=== PATIENT | female | born 1935 | race Caucasian/White ===

== ENCOUNTER 2017-11-19 07:35 | Emergency (ER) | payer MEDICARE, SELFPAY ==
[2017-11-19 07:30] VITALS: BP 142/71; PULSE 71; RESP 18; TEMP 36.7; O2SAT 99; BMI 18.3
--- NOTE | 2017-11-19 07:51 | EKG12_ITS ---
Test Reason : NAUSEA Blood Pressure : / mmHG Vent. Rate : 069 BPM Atrial Rate : 069 BPM P-R Int : 158 ms QRS Dur : 070 ms QT Int : 422 ms P-R-T Axes : 017 057 066 degrees QTc Int : 452 ms Normal sinus rhythm Normal ECG Reconfirmed by ADAMARIS MENDOZA, EVER ([id number]), editor at large SANTIAGO CUTLER ([id number]) on 11/22/2017 1:51:34 PM Referred By: RADHA Confirmed By:EVER BAILON MD
--- NOTE | 2017-11-19 08:00 | ED.DCSUM_ITS ---
- ER Visit Summary Date of Service: 11/19/17 Chief Complaint: Nausea and vomiting History of Present Illness: The patient is a 82 F who states she woke this morning with nausea. She has not vomited. She denies diarrhea. Patient states she felt well when she went to bed last evening. She feels slightly lightheaded, but denies pain. Past history significant for dementia, reflux disease, vertigo, cerebellar ataxia, hypertension, high cholesterol, and atrial fibrillation. Physical Examination: Vital signs are unremarkable. Patient's lying in bed no acute distress. Head neck examination is normal. Heart is regular rate and rhythm. Lung sounds are clear. Abdomen is soft with active bowel sounds throughout. She has no tenderness on palpation. Lower extremity examination will strong distal pulses with no significant edema. Test Results: EKG is sinus at 69 with no sign of acute ischemia. CBC is significant only for hemoglobin 11.7. Chemistry studies are normal. Urinalysis is normal. Emergency Department Course and Treatment: Was given Zofran and IV fluids. On repeat evaluation she does feel improved. She has been able to get up to the bedside commode without difficulty. At this time she will be discharged home with Zofran. Treatment Plan: [] Disposition: Discharge Impression: Nausea, improved This note was generated with [employer] dictation software. It may contain incorrect words, spelling, and punctuation that were not noted in review of the chart prior to signing ED Disposition - Plan for ED Patient: Chief Complaint: Nausea/Vomiting Referrals: Giuliana Wright MD [Primary Care Provider] -
[2017-11-19] MEDS: 0.9% Normal Saline 1,000 ML 75 ML IV (08:01)
[2017-11-19] MEDS: Ondansetron 4 MG/2 ML Vial IV (08:01)
[2017-11-19 08:09] LABS: Absolute Lymphocyte Count 0.86 X10^3/ul (0.83-4.51); Absolute Neutrophil Count 3.9 X10^3/uL (2.0-7.7); Basophil# 0.02 X10^3/uL; Basophil% 0.4 % (0-1); Eosinophil# 0.08 X10^3/uL; Eosinophils% 1.5 % (0-5); Hematocrit 36.4 % (37-47); Hemoglobin 11.7 g/dl (12.0-15.0); Lymphocyte # 0.86 X10^3/ul (4.0); Lymphocyte % 16.2 % (19-41); Mean Corp Hgb Conc 32.1 g/gl (32-36); Mean Corpuscular Hgb 31.4 pg (27.0-32.0); Mean Corpuscular Volume 97.6 fL (81-99); Mean Platelet Vol. 10.6 fl (6.2-12.0); Monocyte# 0.44 X10^3/uL; Monocyte% 8.3 % (0-10); Neutrophil # 3.91 X10^3/uL (2.7-7.7); Neutrophil % 73.6 % (47-70); POSITIVE COUNT NO; POSITIVE DIFFERENTIAL NO; POSITIVE MORPHOLOGY NO; Platelet Count 200 K/mm3 (150-450); RBC Distribution Width CV 12.2 % (11.6-14.6); RBC Distribution Width SD 42.1 fl (35.1-43.9); Red Blood Count 3.73 M/mm3 (4.2-5.4); White Blood Count 5.3 K/mm3 (4.4-11.0)
[2017-11-19 08:23] LABS: Anion Gap 7 (5-15); BUN 16 mg/dL (7-18); BUN/Creat Ratio 24.7 RATIO (10-20); Calcium,Total 8.4 mg/dL (8.5-10.1); Chloride 103 mmol/L (98-107); Creatinine, Serum 0.65 mg/dL (0.55-1.02); EST Glomerular Filtration Rate 93 mL/min (>60); Est Glom Filt Rate - Afr Amer 113 mL/min (>60); Estimated Creatinine Clearance 29.68 ml/min; Glucose 89 mg/dL (74-106); Potassium 3.8 mmol/L (3.5-5.1); Sodium Level 140 mmol/L (136-145)
[2017-11-19 09:33] LABS: Mucous, Urine 0 SEEN /hpf (<or=2+); Red Blood Cells-Urine 0 SEEN /hpf (0-5)
[2017-11-19 09:39] LABS: Color, Urine Yellow (Yellow); Glucose, Dipstick Normal (Normal); Ketone-Dipstick Negative (Negative); Leukocyte Esterase-Dipstick 25 /ul (Negative); Nitrite-Dipstick Negative (Negative); Occult Blood-Urine Negative /ul (Negative); Protein-Dipstick Negative (Negative); Urine Bilirubin Dipstick Negative (Negative); Urine Clarity Sl. Cloudy (Clear); Urine Urobilinogen Normal (Normal)
[2017-11-19 10:04] LABS: Bacteria 1+ /hpf (None Seen); Squamous Epithelial Cells - UA 0-5 SEEN /hpf (5-10); White Blood Cells 0-5 SEEN /hpf (0-5)
[2017-11-19 10:06] VITALS: BP 135/61; PULSE 64; RESP 12; O2SAT 96
--- NOTE | 2017-11-19 10:49 | ED.DEP ---
ED Disposition - Plan for ED Patient: Disposition: Home or Assisted Living Chief Complaint: Nausea/Vomiting Instructions: ED Nausea Vomiting Prescriptions: Ondansetron [Zofran Odt] 4 mg PO Q8H PRN PRN #10 tablet PRN Reason: Nausea Referrals: Giuliana Wright MD [Primary Care Provider] - 3-5 Days if not improving
[2017-11-19 10:57] VITALS: BP 138/62; PULSE 68; RESP 18
== END 2017-11-19 11:04 | disposition home or self-care (01) ==
PROVIDERS: Emergency Provider Emergency Medicine; Family Provider Internal Medicine; PCP Internal Medicine
DX: R11.0 Nausea (principal); F03.90 Unspecified dementia, unspecified severity, without behavioral disturbance, psychotic disturbance, mood disturbance, and anxiety; K21.9 Gastro-esophageal reflux disease without esophagitis; I10 Essential (primary) hypertension; E78.00 Pure hypercholesterolemia, unspecified; G11.9 Hereditary ataxia, unspecified; Z79.82 Long term (current) use of aspirin; Z79.899 Other long term (current) drug therapy
CPT/HCPCS: 80048; 81001; 85025; 93005; 96361; 96374; 99285; J7030; J2405

== ENCOUNTER 2018-02-19 16:10 | Inpatient (IN) | payer MEDICARE, SELFPAY ==
[2018-02-19 16:12] VITALS: BP 137/75; PULSE 73; RESP 16; TEMP 36.8; O2SAT 97; BMI 19.8
--- NOTE | 2018-02-19 16:20 | CT_ITS ---
STUDY: CT BRAIN WITHOUT CONTRAST REASON FOR EXAM: Female, 82 years old. Fall with head injury RADIATION DOSAGE (If Supplied By Facility): CTDIvol = ( 44.99 ) mGy, DLP = ( 745.49 ) mGycm TECHNIQUE: Transaxial CT imaging of the brain was performed without administration of intravenous contrast material. Individualized dose optimization techniques were used for this CT. COMPARISON: None. FINDINGS: Normal soft tissue structures. Normal calvarium. There is mild cerebral atrophy with widening of the extra-axial spaces and ventricular dilatation. There are areas of decreased attenuation within the white matter tracts of the supratentorial brain, consistent with microvascular disease changes. Normal basal ganglia and thalami. Normal brainstem. There is mild cerebellar atrophy. There is no intracranial hemorrhage. There are no findings of an acute ischemic infarction. Normal visualized paranasal sinuses. CT/Brain/Head without Contrast IMPRESSION: Chronic involutional changes of the brain. Electronically Signed: Max Rodriguez DO at 17:16 EDT Tel , Service support ,
--- NOTE | 2018-02-19 16:20 | RAD_ITS ---
STUDY: X-RAY - PELVIS AND RIGHT HIP REASON FOR EXAM: Female, 82 years old. Right hip pain after fall TECHNIQUE: Radiological exam, hip, unilateral, with pelvis when performed; 2 or 3 views. COMPARISON: None. FINDINGS: Complete right femoral neck transection is noted. Left-sided hip degenerative changes RAD/Hip 2-3 Views with Pelvis IMPRESSION: Right femoral neck transection Electronically Signed: Max Rodriguez DO at 17:47 EDT Tel , Service support ,
--- NOTE | 2018-02-19 16:21 | EKG12_ITS ---
Test Reason : PRE OP Blood Pressure : / mmHG Vent. Rate : 070 BPM Atrial Rate : 070 BPM P-R Int : 132 ms QRS Dur : 076 ms QT Int : 406 ms P-R-T Axes : 103 067 054 degrees QTc Int : 438 ms Normal sinus rhythm Normal ECG Confirmed by ADAMARIS MENDOZA, EVER ([id number]), industrial editor SANTIAGO CUTLER ([id number]) on 02/21/2018 1:53:35 PM Referred By: INA Confirmed By:EVER BAILON MD
--- NOTE | 2018-02-19 16:25 | ED.DCSUM_ITS ---
- ER Visit Summary Date of Service: 02/19/18 Chief Complaint: Fall History of Present Illness: The patient is a 82 F who fell today. Her knee gave out and she fell to the ground from standing. She complains of pain to her right hip. She denies head or neck pain, but she is not sure if she lost consciousness. She denies blood thinners. Denies weakness or numbness. Denies any other injuries or complaints Physical Examination: Head and neck atraumatic. Neck nontender. Heart regular rate and rhythm. Lungs clear. Abdomen soft. Right hip tender to palpation. Right leg shortened and rotated. Positive logroll. Neurovascular intact distally. Test Results: CT, chest x-ray, right hip x-ray, labs pending. Emergency Department Course and Treatment: Patient likely has right hip fracture. Treated with morphine and Zofran while awaiting results. Patient has a right-sided femoral neck fracture. CT head and chest x-ray just showed chronic changes. Labs fairly unremarkable. Patient remained stable. Did not require additional medicine for pain. I spoke with Dr. Crowder who will follow. Dr. Reed will admit. Treatment Plan: As above Disposition: Admission Impression: 1. Right femoral neck fracture This note was generated with [employer] dictation software. It may contain incorrect words, spelling, and punctuation that were not noted in review of the chart prior to signing ED Disposition - Plan for ED Patient: Chief Complaint: Lower Extremity Injury
[2018-02-19] MEDS: Morphine 4 MG/ML Syringe IV (16:35)
[2018-02-19] MEDS: Ondansetron 4 MG/2 ML Vial IV (16:35)
[2018-02-19] MEDS: 0.9% Normal Saline 1,000 ML 150 ML IV (17:13)
[2018-02-19 17:17] LABS: Absolute Lymphocyte Count 1.11 X10^3/ul (0.83-4.51); Absolute Neutrophil Count 4.2 X10^3/uL (2.0-7.7); Basophil# 0.02 X10^3/uL; Basophil% 0.3 % (0-1); Eosinophil# 0.05 X10^3/uL; Eosinophils% 0.8 % (0-5); Hematocrit 32.4 % (37-47); Hemoglobin 10.6 g/dl (12.0-15.0); Lymphocyte # 1.11 X10^3/ul (4.0); Lymphocyte % 18.8 % (19-41); Mean Corp Hgb Conc 32.7 g/gl (32-36); Mean Corpuscular Hgb 31.6 pg (27.0-32.0); Mean Corpuscular Volume 96.7 fL (81-99); Monocyte# 0.54 X10^3/uL; Monocyte% 9.2 % (0-10); Neutrophil # 4.16 X10^3/uL (2.7-7.7); Neutrophil % 70.6 % (47-70); Platelet Count 195 K/mm3 (150-450); RBC Distribution Width CV 12.5 % (11.6-14.6); Red Blood Count 3.35 M/mm3 (4.2-5.4); White Blood Count 5.9 K/mm3 (4.4-11.0)
--- NOTE | 2018-02-19 17:20 | RAD_ITS ---
STUDY: X-RAY CHEST REASON FOR EXAM: Female, 82 years old. Trauma TECHNIQUE: Single AP portable view of the chest. COMPARISON: None. FINDINGS: The lungs are clear and expanded. There is no demonstrated pleural abnormality. Normal size heart. Calcified bihilar lymph nodes. Normal visualized pulmonary arteries. Normal visualized aortic arch and descending thoracic aorta. There are diffuse degenerative changes of the visualized thoracic spine. There is degenerative osteoarthritis of the bilateral shoulders. There is no demonstrated abnormality of the visualized soft tissue structures of the upper abdomen. RAD/Chest 1 View (Portable) IMPRESSION: Calcified bihilar lymph nodes. No acute findings Electronically Signed: Max Rodriguez DO at 17:46 EDT Tel , Service support ,
[2018-02-19 17:35] LABS: POSITIVE COUNT NO; POSITIVE DIFFERENTIAL NO; POSITIVE MORPHOLOGY NO
[2018-02-19 17:38] LABS: Anion Gap 8 (5-15); BUN 18 mg/dL (7-18); BUN/Creat Ratio 26.8 RATIO (10-20); Calcium,Total 8.3 mg/dL (8.5-10.1); Chloride 102 mmol/L (98-107); Creatinine, Serum 0.67 mg/dL (0.55-1.02); EST Glomerular Filtration Rate 89 mL/min (>60); Est Glom Filt Rate - Afr Amer 108 mL/min (>60); Estimated Creatinine Clearance 30.62 ml/min; Glucose 104 mg/dL (74-106); Potassium 3.8 mmol/L (3.5-5.1); Sodium Level 140 mmol/L (136-145)
[2018-02-19 17:47] LABS: International Normalized Ratio 1.1; Prothrombin Time (Protime)PT. 14.3 SECONDS (11.7-14.9)
[2018-02-19 17:48] LABS: Partial Thromboplast Time 28.9 Seconds (24.1-36.2)
--- NOTE | 2018-02-19 18:02 | NURSING ---
HOSPITALIST PAGED DR WILLIS PAGED
[2018-02-19 18:33] VITALS: BP 127/71; PULSE 66; RESP 16; O2SAT 93
[2018-02-19 18:38] VITALS: BMI 19.8
--- NOTE | 2018-02-19 19:10 | PCM.HP.STD ---
Problem List (1) Closed right hip fracture Status: Acute (2) Osteoporosis Status: Chronic (3) Hypertension Status: Chronic (4) Dyslipidemia Status: Chronic History of Present Illness Date of Admission: 02/19/18 Chief Complaint: Fall and right hip fracture The patient is a 82 year old F with no significant past medical history other than hypertension, dyslipidemia and osteoporosis on Fosamax came to ER when she fell down after she felt dizzy in her right knee gave out when she was pushing a wheelchair. 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 She denies abnormal chest sensation including arrhythmia, chest pain or shortness of breath. She denies chronic lung disease or heart disease, stroke or peripheral arterial disease or previous dislocation or fracture. In ED, right hip pelvis x-ray shows a right femoral neck fracture. Her initial basic lab work in ER shows hemoglobin 10.6 otherwise unremarkable. EKG shows normal sinus rhythm at 70 bpm. Past Medical History Past Medical History (Chronic Problems): Chronic Problems Osteoporosis (Chronic) Hypertension (Chronic) Dyslipidemia (Chronic) Allergies No Known Allergies Allergy (Verified 02/19/18 16:10) Home Medications: Ambulatory Orders Medication Instructions Recorded Alendronate Sodium [Fosamax] 70 mg PO TU 02/19/18 Aspirin [Aspirin, Baby] 81 mg PO DAILY@0800 02/19/18 Atorvastatin Calcium [Lipitor] 20 mg PO QHS 02/19/18 Ergocalciferol [Vitamin D] 50,000 unit PO MOFR 02/19/18 Ranitidine [Zantac] 150 mg PO BID 02/19/18 Valsartan [Diovan] 40 mg PO DAILY 02/19/18 Smoking Status: Never smoker Tobacco Use: Non-smoker Review of Systems Constitutional: Denies: Chills, Fever, Weight Change HEENT: Denies: Head Aches, Sinus Congestion, Sinus Drainage Cardiovascular: Reports: Light Headedness. Denies: Chest Pain, Palpitations Respiratory: Denies: Cough, Shortness of breath at rest, Sputum production Gastrointestinal: Denies: Abdominal Pain, Nausea, Vomiting Genitourinary: Denies: Dysuria Musculoskeletal: Reports: Joint Pain, Joint Tenderness, Muscle pain Skin: Denies: Rash, Wounds Neurological: Reports: Balance problems. Denies: Focal weakness, Numbness, Tingling Psychiatric: Denies: Anxiety, Depression, Homicidal Ideations, Suicidal Ideations Hematologic/ Lymphatic: Denies: Easy Bruising, Easy Bleeding VTE Information - Inpt Only VTE Present on Admission: No VTE Mechan Device Prophylaxis: SCD's VTE Pharm Prophylaxis ordered?: Yes Patient Problems: Active and Suspected Problems Closed right hip fracture (Acute) - Physical Exam General: Alert, Oriented x3, Cooperative HEENT: Atraumatic, PERRLA, EOMI, Normocephalic, - - Edentulous Oral: Dry Mucosa Neck: Supple, No JVD, Negative Carotid Bruits Lungs: Clear to auscultation, Normal air movement, No rhonchi, No wheeze Cardiovascular: Regular rate, Regular Rhythm, Normal S1, Normal S2, No murmurs Abdomen: Bowel Sounds Present, Soft, Non Tender, Non-Distended, - - Urinary bladder is distended. Extremities: No edema, Capillary Refill Less than 3 Seconds Skin: No rashes, No breakdown Musculoskeletal: Arthritic Changes, Tenderness - Tenderness present over right hip joint and right knee. Right lower extremity is short and externally rotated. Neurological: Cranial nerves II-XII grossly intact Psych/Mental Status: Normal Affect, Appropriate Vital Signs Temp Pulse Resp BP Pulse Ox 98.2 F 66 16 127/71 H 93 02/19/18 16:12 02/19/18 18:33 02/19/18 18:33 02/19/18 18:33 02/19/18 18:33 Assessment/Plan All Active Problems Closed right hip fracture (Acute) The patient is a 82 year old F with no significant past medical history other than hypertension, dyslipidemia and osteoporosis on Fosamax came to ER when she fell down after she felt dizzy in her right knee gave out when she was pushing a wheelchair. 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 She denies abnormal chest sensation including arrhythmia, chest pain or shortness of breath. She denies chronic lung disease or heart disease, stroke or peripheral arterial disease or previous dislocation or fracture. In ED, right hip pelvis x-ray shows a right femoral neck fracture. Her initial basic lab work in ER shows hemoglobin 10.6 otherwise unremarkable. EKG shows normal sinus rhythm at 70 bpm. 1. Right closed, pathological, mechanical hip fracture: The patient is being admitted on regular [facility] floor. ED physician consulted Dr. Crowder for right hip surgery. As per Yo perioperative cardiac risk is 0.22% that is low to moderate risk. Patient has preoperative good functional capacity and she was independent. PT and OT ordered. IV fluid normal saline. 2. Hypertension, and dyslipidemia, Blood pressure is controlled 127/71. Glucose is 104 milligrams percent. 3. Bony disorder: Osteoporosis and bilateral diffuse degenerative joint disease: Home medication reconciliation done. Continue vitamin D, Fosamax. DVT prophylaxis on heparin 5000 units twice daily and bilateral SCDs. Hold heparin 6 hours prior to surgery. Laboratory Results 02/19/18 16:35: WBC 5.9, RBC 3.35 L, Hgb 10.6 L, Hct 32.4 L, MCV 96.7, MCH 31.6, MCHC 32.7, RDW 12.5, RDW Differential 43.0, Plt Count 195, MPV 11.0, Immature Gran % (Auto) 0.300, Neut % (Auto) 70.6 H, Lymph % (Auto) 18.8 L, [place] % (Auto) 9.2, Eos % (Auto) 0.8, Baso % (Auto) 0.3, Absolute Neuts (auto) 4.2, Absolute Lymphs (auto) 1.11, Total Counted Not Reportable 02/19/18 16:35: PT 14.3, INR 1.1, APTT 28.9 02/19/18 16:35: Sodium 140, Potassium 3.8, Chloride 102, Carbon Dioxide 30.0, Anion Gap 8, BUN 18, Creatinine 0.67, Estim Creat Clear Calc 30.62, Est GFR (MDRD) Af Amer 108, Est GFR (MDRD) Non-Af 89, BUN/Creatinine Ratio 26.8 H, Glucose 104, Calcium 8.3 L Clinical Impression(s) from Imaging Studies Brain CT 02/19/18 16:20 IMPRESSION: Chronic involutional changes of the brain. Hip/Pelvis X-Ray 02/19/18 16:20 IMPRESSION: Right femoral neck transection Chest X-Ray 02/19/18 17:20 IMPRESSION: Calcified bihilar lymph nodes. No acute findings Code Visit Inpatient E&M: 38045 Init Hosp L2
[2018-02-19 19:34] VITALS: BMI 19.8
[2018-02-19 19:35] VITALS: BP 143/67; PULSE 64; RESP 18; TEMP 36.7; O2SAT 95
--- NOTE | 2018-02-19 19:43 | ECHOD_ITS ---
Reason For Study: near syncope Procedure This was a 2D Doppler, Color Flow transthoracic echocardiogram. The study was technically difficult. PT scanned in supine position due to RT hip Fx. Exam performed portable in patient room. Left Ventricle Normal LV size. Left ventricular systolic function is normal. The estimated ejection fraction is 60 %. Transmitral diastolic flow velocities suggest mild (stage 1) diastolic dysfunction (reversed pattern). No regional wall motion abnormalities noted. Right Ventricle Normal RV size. Normal systolic function. Atria Normal left atrium. Normal right atrium. Mitral Valve Normal mitral valve. Tricuspid Valve Normal tricuspid valve. Mild (1+) tricuspid valve insufficiency. Pulmonary artery systolic pressure is 34 mmHg. Aortic Valve Trisinus/trileaflet aortic valve. Pulmonic Valve Normal pulmonic valve. Great Vessels Normal aortic root. The pulmonary artery is normal size. Inferior vena cava collapse with sniff. Pericardium/Pleural No pericardial effusion. MMode/2D Measurements & Calculations LVIDd: 3.5 cm IVSd: 0.86 cm Ao root diam: 2.6 cm LVIDs: 2.5 cm LVPWd: 0.88 cm RVDd: 2.5 cm FS: 29.1 % LAV(MOD-bp): 44.5 ml LA A4 area: 14.9 cm2 RA A4 area: 11.3 cm2 LAV(MOD-bp) Indexed: 31.9 ml/m2 LAV(MOD-sp2): 47.0 ml LAV(MOD-sp4): 39.0 ml Doppler Measurements & Calculations MV E max mac: 86.1 cm/sec Lat Peak E' Mac: 8.4 cm/sec Med Peak E' Mac: 10.2 cm/sec MV A max mac: 90.3 cm/sec E/E' lat: 10.2 E/E' med: 8.4 MV E/A: 0.95 Ao V2 max: 149.9 cm/sec LV V1 max: 85.0 cm/sec PA V2 max: 77.0 cm/sec Ao max P.0 mmHg LV V1 max P.9 mmHg PI end-d mac: 109.3 cm/sec TR max mac: 277.9 cm/sec TR max P.1 mmHg Interpretation Summary Normal LV size. Left ventricular systolic function is normal. The estimated ejection fraction is 60 %. Transmitral diastolic flow velocities suggest mild (stage 1) diastolic dysfunction (reversed pattern). Ordering Physician: Wilfred Reed Referring Physician: MIKAELA PCP Performed By: Nikia Sutton RDCS, RVT
--- NOTE | 2018-02-19 19:57 | PCM.CONS.B ---
- Consult Date of Consult: 02/19/18 - Reason for Consult 82-year-old female with a fall from standing height after a dizziness episode resulting in a right closed displaced cervical neck fracture. Patient was seen on the floor after admission by the hospitalist team. Dr. Reed, [facility] hospitalist, felt that at this point time the patient was looking to be cleared for surgical intervention tomorrow as the patient does not have any significant underlying comorbidities is relatively low risk. The daughter does report that her mother was to have had an appointment with [place] [facility] is routine follow-up as she has had some degree of a syncopal episode in the past but with a negative workup. Patient at this point time only reports having some mild right knee pain where no x-rays were performed at this point. She otherwise states her only real complaint is to her right hip. Patient is otherwise resting comfortably in her room again accompanied by her daughter. Denies any other significant fevers chills nausea vomiting chest pain or shortness of breath. Points to her right hip. Patient also points to the right knee. Objective: Patient is otherwise alert and oriented ?3 in no acute distress. Patient is appropriate eye contact and affect. She remains intact from L1-S1 distributions bilaterally. Patient has +2 pulses. Patient has no long bone pain with palpation to the left lower extremity. She has no signs of knee effusion or ecchymosis allow me to gently internally X rotate the hip without difficulty. The right lower extremity is obviously shortened versus the contralateral side. Patient has no pain with palpation across the tibia or the ankle or foot. Her peroneal motor function is 5 out of 5. Patient shows no signs of any effusion currently but does have some pain with with gentle movement of the knee but that may be referred pain from the hip. She does appear to be ligamentously stable with 1A [place]. And she allowed me to examine her at 0 and 30? of varus valgus stress with no abnormalities. Patient shows very mild ecchymosis to the right hip. Otherwise mildly tender palpation to the trochanter as expected. Again the EHL anterior gastrocsoleus peroneals 5 out of 5 to the right lower extremity. Lab values reviewed. H&H is stable at this time. X-rays:-Patient shows a displaced mid cervical femoral neck fracture. No significant acetabular osteoarthritis can be appreciated to the right hip. Assessment: Right closed displaced midcervical femoral neck fracture initial encounter, dizziness, right hip pain, mild anemia. Plan: At this point time an extensive discussion with the patient and the daughter about the planned surgical intervention for tomorrow. I did tell the patient he can make a nonoperative treatment with the patient be nonweightbearing and would have significant pain and discomfort. At this point time the patient and family would like to proceed. Patient understands risks and benefits to include damage to nerves muscles arteries and veins, development of DVT PE infection or . Patient is at risk for dislocation and periprosthetic fracture. Patient was also warned about adverse reaction to canal reaming and the use of cement. Patient would like to proceed at this point time again with a right cemented hemiarthroplasty or any indicated procedure. Anticipate surgery tomorrow hopefully around 930 or 10 perhaps even 1030. I am to follow 1 of the other providers at this time. I will make the patient n.p.o. for surgery. Hold WAKU WAKU ?. I have asked for Ancef to the chart and also TXA to the chart to be given prior to incision to decrease the risks of postoperative blood loss. The patient is aware of the possible need for transfusion if needed. Based on the patient's age patient would be a good candidate for snf facility for rehab as well. There is any major issues please contact me.
--- NOTE | 2018-02-19 20:05 | RAD_ITS ---
STUDY: X-RAY - RIGHT KNEE REASON FOR EXAM: Female, 82 years old. Right knee pain after fall TECHNIQUE: 2 view(s) of the knee. COMPARISON: None. FINDINGS: Normal visualized distal femur. Normal visualized proximal tibia and fibula. Normal proximal tibiofibular articulation. There is mild degenerative arthrosis of the medial femorotibial compartment. There is mild degenerative arthrosis of the lateral femorotibial compartment. Normal patellofemoral articulation. The soft tissue structures are unremarkable. RAD/Knee 1 or 2 Views IMPRESSION: Degenerative arthrosis. Electronically Signed: Max Rodriguez DO at 20:22 EDT Tel , Service support ,
[2018-02-19] MEDS: Morphine 2 MG/ML Syringe IV (21:15)
[2018-02-19] MEDS: Atorvastatin Calcium 20 MG Tablet PO (23:06)
[2018-02-20 01:59] VITALS: BP 107/58; PULSE 62; RESP 18; TEMP 36.4; O2SAT 94
[2018-02-20 02:04] VITALS: BP 107/58; BP 110/51; PULSE 62; PULSE 63
[2018-02-20] MEDS: Morphine 2 MG/ML Syringe IV ×4 (02:10→15:27)
[2018-02-20 06:20] LABS: Absolute Neutrophil Count 5.7 X10^3/uL (2.0-7.7); Basophil# 0.02 X10^3/uL; Basophil% 0.3 % (0-1); Eosinophil# 0.09 X10^3/uL; Eosinophils% 1.2 % (0-5); Hematocrit 32.3 % (37-47); Hemoglobin 10.9 g/dl (12.0-15.0); Lymphocyte % 12.3 % (19-41); Mean Corp Hgb Conc 33.7 g/gl (32-36); Mean Corpuscular Hgb 31.4 pg (27.0-32.0); Mean Corpuscular Volume 93.1 fL (81-99); Mean Platelet Vol. 10.8 fl (6.2-12.0); Monocyte# 0.62 X10^3/uL; Monocyte% 8.4 % (0-10); Neutrophil % 77.7 % (47-70); Platelet Count 171 K/mm3 (150-450); RBC Distribution Width CV 12.8 % (11.6-14.6); RBC Distribution Width SD 43.1 fl (35.1-43.9); Red Blood Count 3.47 M/mm3 (4.2-5.4); White Blood Count 7.3 K/mm3 (4.4-11.0)
[2018-02-20 06:26] LABS: POSITIVE COUNT NO; POSITIVE DIFFERENTIAL NO; POSITIVE MORPHOLOGY NO
[2018-02-20] MEDS: 0.9% Normal Saline 1,000 ML 75 ML IV ×2 (07:43→22:09)
[2018-02-20] MEDS: Aspirin 81 MG TAB.CHEW PO (07:44)
[2018-02-20] MEDS: Famotidine 20 MG Tablet PO (07:44)
[2018-02-20] MEDS: VALSARTAN 40 MG TABLET PO (07:44)
[2018-02-20] MEDS: Polyethylene Glycol 3350 17 GM PACKET PO (07:50)
[2018-02-20] MEDS: Heparin Injection (Vial) 5,000 UNIT/ML VIAL 5000 UNIT SC (07:50)
[2018-02-20 08:15] VITALS: BP 108/46; PULSE 65; RESP 16; TEMP 36.7; O2SAT 95
--- NOTE | 2018-02-20 10:39 | CASEMGMT ---
Social Work Note SAMIR received a message from Rebecca in inpatient rehab stating that pt would be a good candidate for inpatient rehab if pt is agreeable. SW in to talk with pt to confirm discharge plans. SW introduced self and role at [facility]. Pt is alert and orientated x4. Pt's daughter Heena present in room. Pt gave this worker permission to speak to her in front of her daughter. SAMIR educated pt and pt's daughter that typically after a hip fracture the recommendation is SNF or Inpatient Rehab at discharge to get rehabilitation before returning home. SAMIR educated pt and pt's daughter on inpatient rehab unit at [facility]. Pt and pt's daughter is agreeable to inpatient rehab unit at discharge. SAMIR explained referral process and pre-cert authorization. Pt and pt's daughter states understanding. Pt's daughter states that pt's surgery is scheduled for tomorrow. SAMIR placed a call to Rebecca with inpatient rehab and informed her of referral. SW informed pt that pt's surgery is scheduled for tomorrow. Rebecca states understanding and will hold a bed for pt in inpatient rehab. Plan: Pt to discharge to inpatient rehab pending pre-cert Kamilla Chery [employer] MACHINE [employer]JUST[employer], INDUSTRIAL MECH[employer]IC
--- NOTE | 2018-02-20 10:44 | PCM.PN.HOSP ---
Patient Problems: Active and Suspected Problems Closed right hip fracture (Acute) Subjective: Patient is an 82-year-old female with a past medical history apart from hypertension, hyperlipidemia and osteoporosis who was admitted via the ED on 02/19/2018 after she felt dizzy. 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 She denied any abdominal heart rhythm, any chest pain or shortness of breath and does not think she passed out or lost consciousness. She has never passed out like this before in the past. X-ray showed fracture of the right femoral neck. Labs only significant for hemoglobin of 10.6. EKG showed normal sinus rhythm with a heart rate of 70 bpm. She has been managed for right femoral hip fracture and orthopedics is on board. She is due to have surgery tomorrow. She is having an echo today. Seen and examined. She had no complaints and felt well. She denied any fever or chills, cough or chest pain, shortness of breath, abdominal pain, any diarrhea vomiting. Pain is well controlled. Review of systems otherwise negative. Vitals/I&O's: Vital Signs Temp Pulse Resp BP Pulse Ox 98.0 F 65 16 108/46 L 95 02/20/18 08:15 02/20/18 08:15 02/20/18 08:15 02/20/18 08:15 02/20/18 08:15 Oxygen Delivery Method Room Air Weight: 101 lb 6.602 oz Body Mass Index (BMI) 19.8 Intake and Output for Last 24 Hours 02/18/18 02/19/18 02/20/18 23:59 23:59 23:59 Intake Total 830 / 830 Output Total 800 / 800 Balance 30 / General: Alert, Oriented x3, Cooperative, No apparent distress HEENT: Atraumatic, PERRLA, EOMI, Normocephalic Oral: Moist Mucosa Neck: Supple, No JVD, Negative Carotid Bruits Lungs: Clear to auscultation, Normal air movement, No rhonchi, No wheeze, No rales Cardiovascular: Regular rate, Regular Rhythm, Normal S1, Normal S2, No murmurs Abdomen: Bowel Sounds Present, Soft, Non Tender, Non-Distended, No Hepato-splenomegaly Extremities: - - RLE is shortened and externally rotated, unable to tolerate any movement of her RLE. DP and PT pulses palpable Skin: No rashes, No breakdown Musculoskeletal: No Tenderness to Palpation of Joints or Extremities Lymphatic: No Cervical, Supraclavicular, or Inguinal Adenopathy Neurological: Cranial nerves II-XII grossly intact Psych/Mental Status: Normal Affect, Appropriate, Alert and oriented to time, place, person, mood and affect Laboratory Results 02/19/18 20:21: Troponin I < 0.015 02/20/18 05:24: WBC 7.3, RBC 3.47 L, Hgb 10.9 L, Hct 32.3 L, MCV 93.1, MCH 31.4, MCHC 33.7, RDW 12.8, RDW Differential 43.1, Plt Count 171, MPV 10.8, Immature Gran % (Auto) 0.100, Neut % (Auto) 77.7 H, Lymph % (Auto) 12.3 L, [facility] % (Auto) 8.4, Eos % (Auto) 1.2, Baso % (Auto) 0.3, Absolute Neuts (auto) 5.7, Absolute Lymphs (auto) 0.90, Total Counted Not Reportable 02/20/18 05:24: Blood Type O POSITIVE, Antibody Screen NEGATIVE Diagnostic Data Brain CT 02/19/18 16:20 IMPRESSION: Chronic involutional changes of the brain. Electronically Signed: Max Rodriguez DO at 17:16 EDT Tel , Service support , Hip/Pelvis X-Ray 02/19/18 16:20 IMPRESSION: Right femoral neck transection Electronically Signed: Max Rodriguez DO at 17:47 EDT Tel , Service support , Chest X-Ray 02/19/18 17:20 IMPRESSION: Calcified bihilar lymph nodes. No acute findings Electronically Signed: Max Rodriguez DO at 17:46 EDT Tel , Service support , Knee X-Ray 02/19/18 20:05 IMPRESSION: Degenerative arthrosis. Electronically Signed: Max Rodriguez DO at 20:22 EDT Tel , Service support , Current Medications Acetaminophen (Tylenol) 650 mg PO Q6H PRN PRN PRN Reason: Mild Pain (scale 0-3)/T>100.7 Al Hydroxide/Mg Hydroxide (Mylanta Ii) 30 ml PO Q6H PRN PRN PRN Reason: Gastric Burning Alendronate Sodium (Fosamax) 70 mg PO Tu@0700 [facility] Aspirin (Aspirin, Baby) 81 mg PO DAILY@0800 [facility] Last Admin: 02/20/18 07:44 Dose: 81 mg Atorvastatin Calcium (Lipitor) 20 mg PO QHS [facility] Last Admin: 02/19/18 23:06 Dose: 20 mg Bisacodyl (Dulcolax) 10 mg RECTAL DAILY PRN PRN PRN Reason: Constipation Docusate Sodium (Colace) 200 mg PO BID PRN PRN PRN Reason: Constipation Ergocalciferol (Vitamin D) 50,000 unit PO MoFr@0800 [facility] Famotidine (Pepcid) 20 mg PO DAILY [facility] Last Admin: 02/20/18 07:44 Dose: 20 mg Heparin Sodium (Porcine) (Heparin Na) 5,000 unit SC BID [facility] Last Admin: 02/20/18 07:50 Dose: 5,000 u Sodium Chloride () 1,000 mls @ 75 mls/hr IV .[id number] [facility] Last Admin: 02/20/18 07:43 Dose: 75 mls/hr Cefazolin Sodium 2 gm/ Sodium (Chloride) 120 mls @ 240 mls/hr IV SEND TO OR W/PATIENT ONE Stop: 02/21/18 10:29 Morphine Sulfate () 1 - 2 mg IV Q4H PRN PRN PRN Reason: SEVERE PAIN (6-10/10) Last Admin: 02/20/18 10:21 Dose: 2 mg Ondansetron HCl (Zofran) 4 mg IV Q8H PRN PRN PRN Reason: Nausea Oxycodone HCl (Oxyir) 5 mg PO Q4H PRN PRN PRN Reason: Moderate Pain (pain scale 4-5) Polyethylene Glycol (Miralax) 17 gm PO DAILY [facility] Last Admin: 02/20/18 07:50 Dose: 17 gm Valsartan (Diovan) 40 mg PO DAILY [facility] Last Admin: 02/20/18 07:44 Dose: 40 mg Zolpidem Tartrate (Ambien (Generic)) 5 mg PO QHS PRN PRN PRN Reason: INSOMNIA Medical Necessity - Tobacco Use Smoking Status: Never smoker Tobacco Use: Non-smoker Assessment/Plan All Active Problems Closed right hip fracture (Acute) 82-year-old female admitted with a complaint of dizziness and fall after she sustained a right femoral hip fracture. 1. Right closed femoral hip fracture stable. LLE shortened and externally rotated denies any dizziness or lightheadedness prior to fall Preoperative cardiac risk as documented to 0.22% indicating low to moderate risk. Had good preoperative functional capacity and was able to complete activities of daily living on her own. Pelvis x-ray showed right femoral neck fracture orthopedics on board. For surgery tomorrow. PT/OT on board. 2. Near-syncope admits to feeling dizzy and falling, but denies any loss of consciousness EKG showed NSR with HR of 70bpm 2D echo today on IVF NS will check orhtostatics (lying and sitting, as patient cannot stand due to fracture) 3. HTN: controlled. On valsartan 4. Osteoporosis: on fosamax and vitamin D 5. DVT prophylaxis: heparin Disposition: will likely need placement after surgery. PT/OT on board Code Visit Inpatient E&M: [id number] [facility] Hosp L3
--- NOTE | 2018-02-20 10:55 | PN_ITS ---
Patient Problems: Active and Suspected Problems Closed right hip fracture (Acute) Subjective: Patient is an 82-year-old female with a past medical history apart from hypertension, hyperlipidemia and osteoporosis who was admitted via the ED on 05/2018 after she felt dizzy. 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 She denied any abdominal heart rhythm, any chest pain or shortness of breath and does not think she passed out or lost consciousness. She has never passed out like this before in the past. X-ray showed fracture of the right femoral neck. Labs only significant for hemoglobin of 10.6. EKG showed normal sinus rhythm with a heart rate of 70 bpm. She has been managed for right femoral hip fracture and orthopedics is on board. She is due to have surgery tomorrow. She is having an echo today. Seen and examined. She had no complaints and felt well. She denied any fever or chills, cough or chest pain, shortness of breath, abdominal pain, any diarrhea vomiting. Pain is well controlled. Review of systems otherwise negative. Vitals/I&O's: Vital Signs Temp Pulse Resp BP Pulse Ox 98.0 F 65 16 108/46 L 95 02/20/18 08:15 02/20/18 08:15 02/20/18 08:15 02/20/18 08:15 02/20/18 08:15 Oxygen Delivery Method Room Air Weight: 101 lb 6.602 oz Body Mass Index (BMI) 19.8 Intake and Output for Last 24 Hours 02/18/18 02/19/18 02/20/18 23:59 23:59 23:59 Intake Total 830 / 830 Output Total 800 / 800 Balance 30 / General: Alert, Oriented x3, Cooperative, No apparent distress HEENT: Atraumatic, PERRLA, EOMI, Normocephalic Oral: Moist Mucosa Neck: Supple, No JVD, Negative Carotid Bruits Lungs: Clear to auscultation, Normal air movement, No rhonchi, No wheeze, No rales Cardiovascular: Regular rate, Regular Rhythm, Normal S1, Normal S2, No murmurs Abdomen: Bowel Sounds Present, Soft, Non Tender, Non-Distended, No Hepato- splenomegaly Extremities: - - RLE is shortened and externally rotated, unable to tolerate any movement of her RLE. DP and PT pulses palpable Skin: No rashes, No breakdown Musculoskeletal: No Tenderness to Palpation of Joints or Extremities Lymphatic: No Cervical, Supraclavicular, or Inguinal Adenopathy Neurological: Cranial nerves II-XII grossly intact Psych/Mental Status: Normal Affect, Appropriate, Alert and oriented to time, place, person, mood and affect Laboratory Results 02/19/18 20:21: Troponin I < 0.015 02/20/18 05:24: WBC 7.3, RBC 3.47 L, Hgb 10.9 L, Hct 32.3 L, MCV 93.1, MCH 31.4 , MCHC 33.7, RDW 12.8, RDW Differential 43.1, Plt Count 171, MPV 10.8, Immature Gran % (Auto) 0.100, Neut % (Auto) 77.7 H, Lymph % (Auto) 12.3 L, [place] % (Auto) 8.4, Eos % (Auto) 1.2, Baso % (Auto) 0.3, Absolute Neuts (auto) 5.7, Absolute Lymphs (auto) 0.90, Total Counted Not Reportable 02/20/18 05:24: Blood Type O POSITIVE, Antibody Screen NEGATIVE Diagnostic Data Brain CT 02/19/18 16:20 IMPRESSION: Chronic involutional changes of the brain. Electronically Signed: Max Rodriguez DO at 17:16 EDT Tel , Service support , Hip/Pelvis X-Ray 02/19/18 16:20 IMPRESSION: Right femoral neck transection Electronically Signed: Max Rodriguez DO at 17:47 EDT Tel , Service support , Chest X-Ray 02/19/18 17:20 IMPRESSION: Calcified bihilar lymph nodes. No acute findings Electronically Signed: Max Rodriguez DO at 17:46 EDT Tel , Service support , Knee X-Ray 02/19/18 20:05 IMPRESSION: Degenerative arthrosis. Electronically Signed: Max Rodriguez DO at 20:22 EDT Tel , Service support , Current Medications Acetaminophen (Tylenol) 650 mg PO Q6H PRN PRN PRN Reason: Mild Pain (scale 0-3)/T>100.7 Al Hydroxide/Mg Hydroxide (Mylanta Ii) 30 ml PO Q6H PRN PRN PRN Reason: Gastric Burning Alendronate Sodium (Fosamax) 70 mg PO Tu@0700 [facility] Aspirin (Aspirin, Baby) 81 mg PO DAILY@0800 [facility] Last Admin: 02/20/18 07:44 Dose: 81 mg Atorvastatin Calcium (Lipitor) 20 mg PO QHS [facility] Last Admin: 02/19/18 23:06 Dose: 20 mg Bisacodyl (Dulcolax) 10 mg RECTAL DAILY PRN PRN PRN Reason: Constipation Docusate Sodium (Colace) 200 mg PO BID PRN PRN PRN Reason: Constipation Ergocalciferol (Vitamin D) 50,000 unit PO MoFr@0800 [facility] Famotidine (Pepcid) 20 mg PO DAILY [facility] Last Admin: 02/20/18 07:44 Dose: 20 mg Heparin Sodium (Porcine) (Heparin Na) 5,000 unit SC BID [facility] Last Admin: 02/20/18 07:50 Dose: 5,000 u Sodium Chloride () 1,000 mls @ 75 mls/hr IV .[id number] [facility] Last Admin: 02/20/18 07:43 Dose: 75 mls/hr Cefazolin Sodium 2 gm/ Sodium (Chloride) 120 mls @ 240 mls/hr IV SEND TO OR W/ PATIENT ONE Stop: 02/21/18 10:29 Morphine Sulfate () 1 - 2 mg IV Q4H PRN PRN PRN Reason: SEVERE PAIN (6-10/10) Last Admin: 02/20/18 10:21 Dose: 2 mg Ondansetron HCl (Zofran) 4 mg IV Q8H PRN PRN PRN Reason: Nausea Oxycodone HCl (Oxyir) 5 mg PO Q4H PRN PRN PRN Reason: Moderate Pain (pain scale 4-5) Polyethylene Glycol (Miralax) 17 gm PO DAILY [facility] Last Admin: 02/20/18 07:50 Dose: 17 gm Valsartan (Diovan) 40 mg PO DAILY [facility] Last Admin: 02/20/18 07:44 Dose: 40 mg Zolpidem Tartrate (Ambien (Generic)) 5 mg PO QHS PRN PRN PRN Reason: INSOMNIA Medical Necessity - Tobacco Use Smoking Status: Never smoker Tobacco Use: Non-smoker Assessment/Plan All Active Problems Closed right hip fracture (Acute) 82-year-old female admitted with a complaint of dizziness and fall after she sustained a right femoral hip fracture. 1. Right closed femoral hip fracture * stable. LLE shortened and externally rotated * denies any dizziness or lightheadedness prior to fall * Preoperative cardiac risk as documented to 0.22% indicating low to moderate risk. Had good preoperative functional capacity and was able to complete activities of daily living on her own. * Pelvis x-ray showed right femoral neck fracture * orthopedics on board. For surgery tomorrow. * PT/OT on board. * 2. Near-syncope * admits to feeling dizzy and falling, but denies any loss of consciousness * EKG showed NSR with HR of 70bpm * 2D echo today * on IVF NS * will check orhtostatics (lying and sitting, as patient cannot stand due to fracture) * 3. HTN: controlled. On valsartan 4. Osteoporosis: on fosamax and vitamin D 5. DVT prophylaxis: heparin Disposition: will likely need placement after surgery. PT/OT on board Code Visit Inpatient E&M: [id number] [facility] L3
[2018-02-20 14:15] VITALS: BP 110/50; PULSE 68; RESP 16; TEMP 36.6; O2SAT 95
[2018-02-20 20:15] VITALS: BP 126/56; PULSE 62; RESP 16; TEMP 36.4; O2SAT 95
[2018-02-20] MEDS: Atorvastatin Calcium 20 MG Tablet PO (22:10)
[2018-02-21] VITALS (17 sets, daily range): BP systolic 87–131; BP diastolic 52–72; PULSE 74–108; RESP 16–18; TEMP 36.1–37.3; O2SAT 94–100; BMI 19.8
--- NOTE | 2018-02-21 | HIP_PTH ---
PATIENT: SEGUNDO CONWAY LOC: MS3 U#:[id number] AGE/SX: 82/F ROOM: CA310 RE02/19/[address]: Dr. Coni Moreno MD : [id number] BED: 1 DIS: 02/27/2018 SPEC #: [id number] RECD: 02/21/18 14:13 STATUS: JUNIOR REQ #: [id number] STEFANI: 02/21/18 00:[address]: Drake Cabezas DEPT: SURGICAL PATHOLOGY RECD BY: Colton Hawkins ENTERED: 02/21/18 14:13 SP TYPE: TOTAL HIP OTHR DR: DO Dr. Nadege Joe MD Dr. Prakash Chand, MD No Primary Care Phys Tissues: Hip, NOS Procedures: Decalcification bone/plaque Surgery Specimen Level IV Comments: @ Ordering doctor for DEC edited from to DR.MTODD Breanne ACKERMAN at 02/21/18 1502 @ Ordering doctor for SUIV edited from to @ by TYRON at 02/21/18 1502 @ Submitting doctor edited from to @ by TYRON at 02/21/18 1502 HEADER OPERATION: Hemiarthroplasty, hip PRE-OP DIAGNOSIS: Closed right hip fracture TISSUE SUBMITTED: Right femoral head bone and tissue MICROSCOPIC DIAGNOSIS Bone and soft tissue of right hip, total hip resection: Consistent with fracture callus. AM:nelida 02/27/18 MICROSCOPIC DESCRIPTION Slides are reviewed. GROSS DESCRIPTION Received is one container labeled with the patient's name and designated right femoral head, bone and tissue. The specimen consists of a femoral head measuring 4 x 4 x 3.5 cm. A piece of soft tissue is also noted at the top of the femoral head. The articular surface is smooth. The resection margin is irregular and hemorrhagic. Also present in the specimen container are multiple detached pieces of bone measuring in aggregate 4 x 3.5 x 1 cm. Also present in the container are multiple pieces of soft tissue including soft tissue present on the top of the femoral head measuring in aggregate 4 x 4 x 0.5 cm. Coloring Room Man sections are submitted in three cassettes as follows: 1 - soft tissue, 2 - detached pieces of bone after decalcification, 3 - femoral head after decalcification. / SJ:nelida 02/21/18 TC:5 CPT: 33951, 23835
[2018-02-21] MEDS: Morphine 2 MG/ML Syringe IV (03:16)
[2018-02-21 05:56] LABS: Absolute Lymphocyte Count 0.62 X10^3/ul (0.83-4.51); Absolute Neutrophil Count 6.2 X10^3/uL (2.0-7.7); Basophil# 0.02 X10^3/uL; Basophil% 0.3 % (0-1); Eosinophil# 0.08 X10^3/uL; Eosinophils% 1.1 % (0-5); Hematocrit 31.8 % (37-47); Hemoglobin 10.7 g/dl (12.0-15.0); Lymphocyte # 0.62 X10^3/ul (4.0); Lymphocyte % 8.3 % (19-41); Mean Corp Hgb Conc 33.6 g/gl (32-36); Mean Corpuscular Hgb 32.3 pg (27.0-32.0); Mean Corpuscular Volume 96.1 fL (81-99); Mean Platelet Vol. 11.3 fl (6.2-12.0); Monocyte# 0.53 X10^3/uL; Monocyte% 7.1 % (0-10); Neutrophil # 6.17 X10^3/uL (2.7-7.7); Neutrophil % 83.1 % (47-70); Platelet Count 153 K/mm3 (150-450); RBC Distribution Width CV 12.5 % (11.6-14.6); RBC Distribution Width SD 42.2 fl (35.1-43.9); Red Blood Count 3.31 M/mm3 (4.2-5.4); White Blood Count 7.4 K/mm3 (4.4-11.0)
[2018-02-21 06:02] LABS: POSITIVE COUNT NO; POSITIVE DIFFERENTIAL NO; POSITIVE MORPHOLOGY NO
[2018-02-21 06:16] LABS: Anion Gap 9 (5-15); BUN 11 mg/dL (7-18); Calcium,Total 7.3 mg/dL (8.5-10.1); Chloride 104 mmol/L (98-107); Creatinine, Serum 0.41 mg/dL (0.55-1.02); EST Glomerular Filtration Rate 158 mL/min (>60); Est Glom Filt Rate - Afr Amer 191 mL/min (>60); Estimated Creatinine Clearance 30.62 ml/min; Glucose 109 mg/dL (74-106); Potassium 3.4 mmol/L (3.5-5.1); Sodium Level 138 mmol/L (136-145)
[2018-02-21] MEDS: Cefazolin 2 GM in 0.9% Normal Saline 100 ML IV (07:55)
--- NOTE | 2018-02-21 09:33 | OP.PN_ITS ---
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
--- NOTE | 2018-02-21 10:05 | RAD_ITS ---
STUDY: X-RAY - PELVIS AND RIGHT HIP REASON FOR EXAM: Female, 82 years old. Total right hip replacement. TECHNIQUE: Radiological exam, hip, unilateral, with pelvis when performed; 2 or 3 views. COMPARISON: Comparison is made with prior examination dated February 19, 2018. FINDINGS: The patient is status post right total hip replacement. There is good alignment. Postoperative soft tissue changes. RAD/Hip Min 2 Views (Portable) IMPRESSION: Status post right total hip replacement. There is good alignment. Postoperative soft tissue changes. Electronically Signed: Nguyễn Paz MD at 12:34 EDT Tel [phone], Service support ,
[2018-02-21 10:32] LABS: Hematocrit 29.3 % (37-47); Hemoglobin 9.7 g/dl (12.0-15.0); Mean Corp Hgb Conc 33.1 g/gl (32-36); Mean Corpuscular Hgb 31.4 pg (27.0-32.0); Mean Corpuscular Volume 94.8 fL (81-99); Mean Platelet Vol. 10.5 fl (6.2-12.0); Platelet Count 160 K/mm3 (150-450); RBC Distribution Width SD 45.2 fl (35.1-43.9); Red Blood Count 3.09 M/mm3 (4.2-5.4); White Blood Count 9.9 K/mm3 (4.4-11.0)
[2018-02-21 10:33] LABS: Scan Indicated on CBC? Y/N NO
[2018-02-21 10:40] LABS: International Normalized Ratio 1.3; Prothrombin Time (Protime)PT. 15.8 SECONDS (11.7-14.9)
[2018-02-21 10:50] LABS: Anion Gap 8 (5-15); BUN 10 mg/dL (7-18); BUN/Creat Ratio 21.9 RATIO (10-20); Chloride 104 mmol/L (98-107); Creatinine, Serum 0.46 mg/dL (0.55-1.02); EST Glomerular Filtration Rate 139 mL/min (>60); Est Glom Filt Rate - Afr Amer 168 mL/min (>60); Estimated Creatinine Clearance 30.62 ml/min; Glucose 104 mg/dL (74-106); Potassium 3.4 mmol/L (3.5-5.1); Sodium Level 134 mmol/L (136-145)
[2018-02-21] MEDS: Acetaminophen 500 MG Tablet 1000 MG PO ×2 (14:00→21:13)
[2018-02-21] MEDS: Aspirin 81 MG TAB.CHEW PO (14:01)
[2018-02-21] MEDS: Famotidine 20 MG Tablet PO (14:01)
--- NOTE | 2018-02-21 14:21 | PCM.PN.HOSP ---
Patient Problems: Active and Suspected Problems Closed right hip fracture (Acute) Subjective: Patient seen and examined. She just came back from surgery of the right hip fracture. She has no complaints and sitting comfortably in bed watching TV. She denies any fever or chills, any cough or chest pain, shortness of breath, abdominal pain, any diarrhea vomiting. Her pain is very well controlled and states she has absolutely no pain. 12 system review of systems otherwise negative. Vitals/I&O's: Vital Signs Temp Pulse Resp BP Pulse Ox 97.3 F L 94 18 102/52 L 95 02/21/18 13:48 02/21/18 13:48 02/21/18 13:48 02/21/18 13:48 02/21/18 13:48 Oxygen Flow Rate (L/min) 1 Oxygen Delivery Method Nasal Cannula Weight: 101 lb 6.602 oz Body Mass Index (BMI) 19.8 Intake and Output for Last 24 Hours 02/19/18 02/20/18 02/21/18 23:59 23:59 23:59 Intake Total 1316 / 1316 2140 / 2140 Output Total 1100 / 1100 1025 / 1025 Balance 216 / 216 1115 / 1115 General: Alert, Oriented x3, Cooperative, No apparent distress HEENT: Atraumatic, PERRLA, EOMI, Normocephalic Oral: Moist Mucosa Neck: Supple, No JVD, Negative Carotid Bruits Lungs: Clear to auscultation, Normal air movement, No rhonchi, No wheeze, No rales Cardiovascular: Regular rate, Regular Rhythm, Normal S1, Normal S2, No murmurs Abdomen: Bowel Sounds Present, Soft, Non Tender, Non-Distended, No Hepato-splenomegaly Extremities: No clubbing, No cyanosis, No edema, Capillary Refill Less than 3 Seconds, - - Surgical dressing of right hip is clean and dry. Skin: No rashes, No breakdown Musculoskeletal: No Tenderness to Palpation of Joints or Extremities Lymphatic: No Cervical, Supraclavicular, or Inguinal Adenopathy Neurological: Cranial nerves II-XII grossly intact, Neuro grossly intact Psych/Mental Status: Normal Affect, Appropriate, Alert and oriented to time, place, person, mood and affect Laboratory Results 02/21/18 05:14: WBC 7.4, RBC 3.31 L, Hgb 10.7 L, Hct 31.8 L, MCV 96.1, MCH 32.3 H, MCHC 33.6, RDW 12.5, RDW Differential 42.2, Plt Count 153, MPV 11.3, Immature Gran % (Auto) 0.100, Neut % (Auto) 83.1 H, Lymph % (Auto) 8.3 L, [place] % (Auto) 7.1, Eos % (Auto) 1.1, Baso % (Auto) 0.3, Absolute Neuts (auto) 6.2, Absolute Lymphs (auto) 0.62 L, Total Counted Not Reportable 02/21/18 05:14: Sodium 138, Potassium 3.4 L, Chloride 104, Carbon Dioxide 25.0, Anion Gap 9, BUN 11, Creatinine 0.41 L, Estim Creat Clear Calc 30.62, Est GFR (MDRD) Af Amer 191, Est GFR (MDRD) Non-Af 158, BUN/Creatinine Ratio 27.0 H, Glucose 109 H, Calcium 7.3 L 02/21/18 10:26: PT 15.8 H, INR 1.3 02/21/18 10:26: WBC 9.9, RBC 3.09 L, Hgb 9.7 L, Hct 29.3 L, MCV 94.8, MCH 31.4, MCHC 33.1, RDW 13.0, RDW Differential 45.2 H, Plt Count 160, MPV 10.5 02/21/18 10:26: Sodium 134 L, Potassium 3.4 L, Chloride 104, Carbon Dioxide 22.0, Anion Gap 8, BUN 10, Creatinine 0.46 L, Estim Creat Clear Calc 30.62, Est GFR (MDRD) Af Amer 168, Est GFR (MDRD) Non-Af 139, BUN/Creatinine Ratio 21.9 H, Glucose 104, Calcium 7.0 L Current Medications Acetaminophen (Tylenol) 650 mg PO Q6H PRN PRN PRN Reason: Mild Pain (scale 0-3)/T>100.7 Acetaminophen (Tylenol) 1,000 mg PO Q8 [facility] Last Admin: 02/21/18 14:00 Dose: 1,000 mg Al Hydroxide/Mg Hydroxide (Mylanta Ii) 30 ml PO Q6H PRN PRN PRN Reason: Gastric Burning Alendronate Sodium (Fosamax) 70 mg PO Tu@0700 [facility] Aspirin (Aspirin, Baby) 81 mg PO DAILY@0800 [facility] Last Admin: 02/21/18 14:01 Dose: 81 mg Atorvastatin Calcium (Lipitor) 20 mg PO QHS [facility] Last Admin: 02/20/18 22:10 Dose: 20 mg Bisacodyl (Dulcolax) 10 mg RECTAL DAILY PRN PRN PRN Reason: Constipation Docusate Sodium (Colace) 200 mg PO BID PRN PRN PRN Reason: Constipation Enoxaparin Sodium (Lovenox) 30 mg SC DAILY@0600 [facility] Ergocalciferol (Vitamin D) 50,000 unit PO MoFr@0800 [facility] Famotidine (Pepcid) 20 mg PO DAILY [facility] Last Admin: 02/21/18 14:01 Dose: 20 mg Sodium Chloride () 1,000 mls @ 75 mls/hr IV .[id number] [facility] Last Admin: 02/20/18 22:09 Dose: 75 mls/hr Cefazolin Sodium () 1 gm in 50 mls @ 150 mls/hr IV Q8H [facility] Stop: 02/22/18 00:19 Morphine Sulfate () 1 - 2 mg IV Q4H PRN PRN PRN Reason: SEVERE PAIN (6-10/10) Last Admin: 02/21/18 03:16 Dose: 2 mg Nutritional Formula (Lactose Free) (Ensure Clear) 120 ml PO TIDCM [facility] Last Admin: 02/21/18 11:58 Dose: Not Given Ondansetron HCl (Zofran) 4 mg IV Q8H PRN PRN PRN Reason: Nausea Oxycodone HCl (Oxyir) 5 mg PO Q4H PRN PRN PRN Reason: Moderate Pain (pain scale 4-5) Polyethylene Glycol (Miralax) 17 gm PO DAILY [facility] Last Admin: 02/21/18 11:57 Dose: Not Given Sodium Chloride () 5 - 30 ml IV UD PRN PRN Reason: SALINE FLUSH Valsartan (Diovan) 40 mg PO DAILY [facility] Last Admin: 02/20/18 07:44 Dose: 40 mg Zolpidem Tartrate (Ambien (Generic)) 5 mg PO QHS PRN PRN PRN Reason: INSOMNIA Medical Necessity - Tobacco Use Smoking Status: Never smoker Tobacco Use: Non-smoker Assessment/Plan All Active Problems Closed right hip fracture (Acute) 82-year-old female admitted with a complaint of dizziness and fall after she sustained a right femoral hip fracture. 1. Right closed femoral hip fracture s/p surgery- POD 0 patient seen and examined after surgery has no complaints. Pain is very well controlled. PT/OT on board for discharge to TCU for rehab once medically stable on tyelenol, morphine and oxycodone for pain 2. Near-syncope resolved EKG showed NSR with HR of 70bpm 2D echo: EF of 60% with normal LV and mild diastolic dysfunction, no regional wall motion abnormalites noted. PA systolic pressue is 34mmHg. on IVF NS 3. HTN: controlled. On valsartan 4. Osteoporosis: on fosamax and vitamin D 5. Hypokalemia: K today is 3.4. Will replace and monitor 6. DVT prophylaxis: heparin Disposition: for dc to TCU for rehab once precert is received and she is medically cleared. Code Visit Inpatient E&M: 81198 [facility] H[facility] L3
--- NOTE | 2018-02-21 14:26 | PN_ITS ---
Patient Problems: Active and Suspected Problems Closed right hip fracture (Acute) Subjective: Patient seen and examined. She just came back from surgery of the right hip fracture. She has no complaints and sitting comfortably in bed watching TV. She denies any fever or chills, any cough or chest pain, shortness of breath, abdominal pain, any diarrhea vomiting. Her pain is very well controlled and states she has absolutely no pain. 12 system review of systems otherwise negative. Vitals/I&O's: Vital Signs Temp Pulse Resp BP Pulse Ox 97.3 F L 94 18 102/52 L 95 02/21/18 13:48 02/21/18 13:48 02/21/18 13:48 02/21/18 13:48 02/21/18 13:48 Oxygen Flow Rate (L/min) 1 Oxygen Delivery Method Nasal Cannula Weight: 101 lb 6.602 oz Body Mass Index (BMI) 19.8 Intake and Output for Last 24 Hours 02/19/18 02/20/18 02/21/18 23:59 23:59 23:59 Intake Total 1316 / 1316 2140 / 2140 Output Total 1100 / 1100 1025 / 1025 Balance 216 / 216 1115 / 1115 General: Alert, Oriented x3, Cooperative, No apparent distress HEENT: Atraumatic, PERRLA, EOMI, Normocephalic Oral: Moist Mucosa Neck: Supple, No JVD, Negative Carotid Bruits Lungs: Clear to auscultation, Normal air movement, No rhonchi, No wheeze, No rales Cardiovascular: Regular rate, Regular Rhythm, Normal S1, Normal S2, No murmurs Abdomen: Bowel Sounds Present, Soft, Non Tender, Non-Distended, No Hepato- splenomegaly Extremities: No clubbing, No cyanosis, No edema, Capillary Refill Less than 3 Seconds, - - Surgical dressing of right hip is clean and dry. Skin: No rashes, No breakdown Musculoskeletal: No Tenderness to Palpation of Joints or Extremities Lymphatic: No Cervical, Supraclavicular, or Inguinal Adenopathy Neurological: Cranial nerves II-XII grossly intact, Neuro grossly intact Psych/Mental Status: Normal Affect, Appropriate, Alert and oriented to time, place, person, mood and affect Laboratory Results 02/21/18 05:14: WBC 7.4, RBC 3.31 L, Hgb 10.7 L, Hct 31.8 L, MCV 96.1, MCH 32.3 H, MCHC 33.6, RDW 12.5, RDW Differential 42.2, Plt Count 153, MPV 11.3, Immature Gran % (Auto) 0.100, Neut % (Auto) 83.1 H, Lymph % (Auto) 8.3 L, [place] % (Auto) 7.1, Eos % (Auto) 1.1, Baso % (Auto) 0.3, Absolute Neuts (auto) 6.2, Absolute Lymphs (auto) 0.62 L, Total Counted Not Reportable 02/21/18 05:14: Sodium 138, Potassium 3.4 L, Chloride 104, Carbon Dioxide 25.0, Anion Gap 9, BUN 11, Creatinine 0.41 L, Estim Creat Clear Calc 30.62, Est GFR ( MDRD) Af Amer 191, Est GFR (MDRD) Non-Af 158, BUN/Creatinine Ratio 27.0 H, Glucose 109 H, Calcium 7.3 L 02/21/18 10:26: PT 15.8 H, INR 1.3 02/21/18 10:26: WBC 9.9, RBC 3.09 L, Hgb 9.7 L, Hct 29.3 L, MCV 94.8, MCH 31.4, MCHC 33.1, RDW 13.0, RDW Differential 45.2 H, Plt Count 160, MPV 10.5 02/21/18 10:26: Sodium 134 L, Potassium 3.4 L, Chloride 104, Carbon Dioxide 22.0 , Anion Gap 8, BUN 10, Creatinine 0.46 L, Estim Creat Clear Calc 30.62, Est GFR (MDRD) Af Amer 168, Est GFR (MDRD) Non-Af 139, BUN/Creatinine Ratio 21.9 H, Glucose 104, Calcium 7.0 L Current Medications Acetaminophen (Tylenol) 650 mg PO Q6H PRN PRN PRN Reason: Mild Pain (scale 0-3)/T>100.7 Acetaminophen (Tylenol) 1,000 mg PO Q8 [facility] Last Admin: 02/21/18 14:00 Dose: 1,000 mg Al Hydroxide/Mg Hydroxide (Mylanta Ii) 30 ml PO Q6H PRN PRN PRN Reason: Gastric Burning Alendronate Sodium (Fosamax) 70 mg PO Tu@0700 [facility] Aspirin (Aspirin, Baby) 81 mg PO DAILY@0800 [facility] Last Admin: 02/21/18 14:01 Dose: 81 mg Atorvastatin Calcium (Lipitor) 20 mg PO QHS [facility] Last Admin: 02/20/18 22:10 Dose: 20 mg Bisacodyl (Dulcolax) 10 mg RECTAL DAILY PRN PRN PRN Reason: Constipation Docusate Sodium (Colace) 200 mg PO BID PRN PRN PRN Reason: Constipation Enoxaparin Sodium (Lovenox) 30 mg SC DAILY@0600 [facility] Ergocalciferol (Vitamin D) 50,000 unit PO MoFr@0800 [facility] Famotidine (Pepcid) 20 mg PO DAILY [facility] Last Admin: 02/21/18 14:01 Dose: 20 mg Sodium Chloride () 1,000 mls @ 75 mls/hr IV .[id number] [facility] Last Admin: 02/20/18 22:09 Dose: 75 mls/hr Cefazolin Sodium () 1 gm in 50 mls @ 150 mls/hr IV Q8H [facility] Stop: 02/22/18 00:19 Morphine Sulfate () 1 - 2 mg IV Q4H PRN PRN PRN Reason: SEVERE PAIN (6-10/10) Last Admin: 02/21/18 03:16 Dose: 2 mg Nutritional Formula (Lactose Free) (Ensure Clear) 120 ml PO TIDCM [facility] Last Admin: 02/21/18 11:58 Dose: Not Given Ondansetron HCl (Zofran) 4 mg IV Q8H PRN PRN PRN Reason: Nausea Oxycodone HCl (Oxyir) 5 mg PO Q4H PRN PRN PRN Reason: Moderate Pain (pain scale 4-5) Polyethylene Glycol (Miralax) 17 gm PO DAILY [facility] Last Admin: 02/21/18 11:57 Dose: Not Given Sodium Chloride () 5 - 30 ml IV UD PRN PRN Reason: SALINE FLUSH Valsartan (Diovan) 40 mg PO DAILY [facility] Last Admin: 02/20/18 07:44 Dose: 40 mg Zolpidem Tartrate (Ambien (Generic)) 5 mg PO QHS PRN PRN PRN Reason: INSOMNIA Medical Necessity - Tobacco Use Smoking Status: Never smoker Tobacco Use: Non-smoker Assessment/Plan All Active Problems Closed right hip fracture (Acute) 82-year-old female admitted with a complaint of dizziness and fall after she sustained a right femoral hip fracture. 1. Right closed femoral hip fracture s/p surgery- POD 0 * patient seen and examined after surgery * has no complaints. Pain is very well controlled. * PT/OT on board * for discharge to TCU for rehab once medically stable * on tyelenol, morphine and oxycodone for pain * * * 2. Near-syncope * resolved * EKG showed NSR with HR of 70bpm * 2D echo: EF of 60% with normal LV and mild diastolic dysfunction, no regional wall motion abnormalites noted. PA systolic pressue is 34mmHg. * on IVF NS * 3. HTN: controlled. On valsartan 4. Osteoporosis: on fosamax and vitamin D 5. Hypokalemia: K today is 3.4. Will replace and monitor 6. DVT prophylaxis: heparin Disposition: for dc to TCU for rehab once precert is received and she is medically cleared. Code Visit Inpatient E&M: 70483 Subs Hosp L3
[2018-02-21 16:11] LABS: Bedside Glucose 202 mg/dL (70-110)
--- NOTE | 2018-02-21 16:26 | EKG12_ITS ---
Test Reason : SYNCOPE Blood Pressure : / mmHG Vent. Rate : 074 BPM Atrial Rate : 074 BPM P-R Int : 128 ms QRS Dur : 072 ms QT Int : 406 ms P-R-T Axes : 071 040 062 degrees QTc Int : 450 ms Normal sinus rhythm Nonspecific ST abnormality Abnormal ECG When compared with ECG of 19-FEB-2018 16:32, No significant change was found Confirmed by CHRISTINE ANDRADE ([id number]), production editor SANTIAGO CUTLER ([id number]) on 03/05/2018 2:10:51 PM Referred By: SUNIL Confirmed By:CHRISTINE ANDRADE
[2018-02-21] MEDS: 0.9% Normal Saline 1,000 ML 999 ML IV (16:35)
[2018-02-21] MEDS: 0.9% Normal Saline 1,000 ML 125 ML IV (17:18)
[2018-02-21] MEDS: Cefazolin 1 GM/50 ML BAG IV (17:18)
--- NOTE | 2018-02-21 17:46 | CHAPLAIN ---
Type of Pastoral Visit _x__ Initial Visit ___ Follow-up Visit ___ On-call Visit ___ General Patient Visit ___ Spiritual Assessment ___ Family Conference ___ Bereavement ___ Rapid Response ___ Code Blue ___ Other (describe below) Pastoral Care Referral From _x__ Patient ___ Family ___ Nurse ___ Physician ___ Patient Consumer Marketer ___ Band Splitter ___ Other (describe below) Sacrament/Intervention _x__ Active listening ___ Anointing ___ Muslim ___ Bereavement ___ Communion ___ Krystle exploration ___ _x__ Life review _x__ Prayer ___ Reconciliation ___ Sacrament of Sick _x__ Supportive presence ___ Wedding ___ Other (describe below) Pastoral Comments
[2018-02-21 20:28] LABS: Magnesium 1.5 mg/dL (1.6-2.6); Potassium 3.4 mmol/L (3.5-5.1)
[2018-02-21] MEDS: Atorvastatin Calcium 20 MG Tablet PO (21:13)
[2018-02-22] VITALS (20 sets, daily range): BP systolic 84–142; BP diastolic 35–92; PULSE 75–94; RESP 16–20; TEMP 36.5–37.6; O2SAT 93–99
[2018-02-22] MEDS: Cefazolin 1 GM/50 ML BAG IV (00:12)
[2018-02-22] MEDS: 0.9% Normal Saline 1,000 ML 125 ML IV (02:28)
[2018-02-22] MEDS: oxyCODONE 5 MG Tablet PO (02:28)
[2018-02-22] MEDS: Enoxaparin 30 MG/0.3 ML Syringe SC (06:22)
[2018-02-22] MEDS: Acetaminophen 500 MG Tablet 1000 MG PO ×3 (06:22→20:54)
[2018-02-22 06:24] LABS: Hematocrit 20.1 % (37-47); Hemoglobin 6.6 g/dl (12.0-15.0); Mean Corp Hgb Conc 32.8 g/gl (32-36); Mean Corpuscular Hgb 31.7 pg (27.0-32.0); Mean Corpuscular Volume 96.6 fL (81-99); Mean Platelet Vol. 11.3 fl (6.2-12.0); Platelet Count 135 K/mm3 (150-450); RBC Distribution Width CV 12.3 % (11.6-14.6); RBC Distribution Width SD 41.5 fl (35.1-43.9); Red Blood Count 2.08 M/mm3 (4.2-5.4); White Blood Count 5.4 K/mm3 (4.4-11.0)
[2018-02-22 06:25] LABS: Scan Indicated on CBC? Y/N NO
[2018-02-22 06:46] LABS: Magnesium 1.5 mg/dL (1.6-2.6)
[2018-02-22 06:47] LABS: Anion Gap 4 (5-15); BUN 10 mg/dL (7-18); BUN/Creat Ratio 24.2 RATIO (10-20); Calcium,Total 6.8 mg/dL (8.5-10.1); Chloride 107 mmol/L (98-107); Creatinine, Serum 0.41 mg/dL (0.55-1.02); EST Glomerular Filtration Rate 156 mL/min (>60); Est Glom Filt Rate - Afr Amer 188 mL/min (>60); Estimated Creatinine Clearance 30.62 ml/min; Glucose 133 mg/dL (74-106); Potassium 3.6 mmol/L (3.5-5.1); Sodium Level 140 mmol/L (136-145)
--- NOTE | 2018-02-22 07:41 | PCM.PN.ORT ---
Patient Problems: Active and Suspected Problems Closed right hip fracture (Acute) Subjective: Postop day 1 status post right hip hemiarthroplasty for displaced femoral neck fracture. Patient currently sitting upright in chair in no acute distress. Waiting for breakfast at this time simply states that her hip has little bit of soreness. Otherwise report yesterday was that she was neurovascularly intact. Currently being followed by the hospitalist team. No other reported fevers chills nausea vomiting chest pain or shortness of breath. - Physical Exam General: Alert, Oriented x3, Cooperative, No apparent distress Musculoskeletal: - - Patient remains distally neurovascularly intact. EHL anterior gastrocsoleus peroneals 5 out of 5. Silverlon dressing in place. No signs of a hematoma to the hip at this point time with palpation across the thigh or into the buttocks. X-rays reviewed show leg lengths to be very good in hardware otherwise well seated well-placed. Patient is status post right hip hemiarthroplasty. Uncemented. Lab values reviewed. H&H is down this morning to 6.6 and 20. Platelets 135. Vital Signs Temp Pulse Resp BP Pulse Ox 98.2 F 86 16 105/48 L 97 02/22/18 02:35 02/22/18 07:30 02/22/18 02:35 02/22/18 02:35 02/22/18 02:35 Oxygen Flow Rate (L/min) 2 Oxygen Delivery Method Nasal Cannula Weight: 101 lb 6.602 oz Body Mass Index (BMI) 19.8 Orthostatic Vital Signs Start: 02/20/18 01:03 Freq: q24h Status: Active Protocol: Activity Type Activity Date Activity User E-Sign Co-Sign Detail Recorded Client Recorded Date Recorded By Document 02/21/18 16:32 MAB [id number] 02/21/18 16:33 MAB 02/21/18 16:32 Orthostatic Vitals Sitting -Blood Pressure (90/60-120/80) 87/53 L -Extremity Use Right Arm -Pulse Rate (60-100) 82 Lying -Blood Pressure (90/60-120/80) 103/52 L -Extremity Use Right Arm -Pulse Rate (60-100) 82 Intake and Output for Last 24 Hours 02/20/18 02/21/18 02/22/18 23:59 23:59 23:59 Intake Total 1316 / 1316 3761 / 3761 1965 / 1965 Output Total 1100 / 1100 1025 / 1025 875 / 875 Balance 216 / 216 2736 / 2736 1091 / 1091 Laboratory Tests Past 24 Hrs 02/21/18 02/21/18 02/21/18 10:26 10:26 10:26 WBC 9.9 RBC 3.09 L Hgb 9.7 L Hct 29.3 L MCV 94.8 MCH 31.4 MCHC 33.1 RDW 13.0 RDW Differential 45.2 H Plt Count 160 MPV 10.5 PT 15.8 H INR 1.3 Sodium 134 L Potassium 3.4 L Chloride 104 Carbon Dioxide 22.0 Anion Gap 8 BUN 10 Creatinine 0.46 L Estim Creat Clear Calc 30.62 Est GFR (MDRD) Af Amer 168 Est GFR (MDRD) Non-Af 139 BUN/Creatinine Ratio 21.9 H Glucose 104 Calcium 7.0 L Magnesium 02/21/18 02/22/18 02/22/18 19:51 05:25 05:25 WBC 5.4 RBC 2.08 L Hgb 6.6 L Hct 20.1 L MCV 96.6 MCH 31.7 MCHC 32.8 RDW 12.3 RDW Differential 41.5 Plt Count 135 L MPV 11.3 PT INR Sodium 140 Potassium 3.4 L 3.6 Chloride 107 Carbon Dioxide 29.0 Anion Gap 4 L BUN 10 Creatinine 0.41 L Estim Creat Clear Calc 30.62 Est GFR (MDRD) Af Amer 188 Est GFR (MDRD) Non-Af 156 BUN/Creatinine Ratio 24.2 H Glucose 133 H Calcium 6.8 L Magnesium 1.5 L 02/22/18 05:25 WBC RBC Hgb Hct MCV MCH MCHC RDW RDW Differential Plt Count MPV PT INR Sodium Potassium Chloride Carbon Dioxide Anion Gap BUN Creatinine Estim Creat Clear Calc Est GFR (MDRD) Af Amer Est GFR (MDRD) Non-Af BUN/Creatinine Ratio Glucose Calcium Magnesium 1.5 L POC Glucose 02/21/18 16:08 POC Glucose 202 H Medical Necessity - Tobacco Use Smoking Status: Never smoker Tobacco Use: Non-smoker Assessment/Plan All Active Problems Closed right hip fracture (Acute) Assessment: After orthopedics status post right hip hemiarthroplasty for displaced femoral neck fracture. Patient with borderline anemia now with postop anemia with probable degree of hemodilution. Plan: At this point time the patient appears to be asymptomatic. Vital signs otherwise remained stable. I would recommend decreasing the patient's fluid as she is probably getting some degree of hemodilution. I did hold Lovenox for today. Patient was started on multivitamin, Ferrex 150 and vitamin C. Patient may require transfusion of 1-2 units especially at her age to prevent stress to her heart. Patient is otherwise weightbearing as tolerated to the right lower extremity with posterior hip precautions ?6 weeks. Abduction pillow while in bed. We will continue to follow at this time. There is any issues please contact me.
--- NOTE | 2018-02-22 07:45 | PCM.OPRPT ---
Report of Operation Date of Procedure: 02/21/18 Pre-Operative Diagnosis: Right hip displaced femoral neck fracture closed Post-Operative Diagnosis: Same as above Surgery/Procedure Performed:: Right hip hemiarthroplasty-[facility] Accolade press-fit Description of Surgical Findings:: 82-year-old female with fall from standing height resulting in a right closed displaced femoral neck fracture. Patient was admitted to the floor by the hospitalist team evaluated and cleared for surgical intervention. Patient was counseled and consented for the aforementioned procedure. She is met in the holding area where the right lower extremity was marked and identified by the orthopedic surgeon. Patient was taken to the operating room in satisfactory condition with somewhat to place to identify patient operative procedure and limb. Patient received 2 g of Ancef and 1 g of TXA. She underwent a successful intubation. She was then placed into the left lateral decubitus position with well-padded axillary roll and a down leg to protect the peroneal nerve. She was then prepped and draped in usual fashion. Patient had a 10 cm incision made two thirds proximal one third distal to the greater trochanter with sharp dissection down to the soft tissues and Bovie cautery control any bleeding. The tensor fascia and the IT band were longitudinally split. Patient had a small removal bursal tissue over top of the trochanter to identify the short external rotators and the gluteals. Patient then underwent a standard posterior approach with takedown of the short external rotators while the leg was gently internally rotated. The piriformis tendon was preserved. Capsule was identified longitudinally split up to the labral tissue. Fracture line was obviously visible. Patient had fractured to the distal one third of the femoral neck not quite a basicervical fracture. Fracture line was then freshened using a sagittal saw using standard technique. At that point time the head was then gently removed in continuity. Patient showed no signs of obvious arthrosis. Cotyloid and ligamentous were atrophied and then cauterized. Head diameter was measured and we elected to use a 45 mm universal bipolar head from [facility]. At that point time the femoral neck was presented and standard preparation was undertaken. Upon initial broaching I concerns about the small nature of the patient and the initial cementing broach which would not move easily down the canal. We elected to bring in the press-fit stems did an initial preparatory opening and again still felt that I was stressing the canal trying to place the initial cementing broach in place. I then elected to convert completely to a press-fit system. We gently broached up to a size 3 stem with good positioning. At that point time 0 offset neck was introduced we placed him and reduced the hip using trial components. We had excellent leg length and stability. The hip could be flexed and internally rotated to roughly 70? before any form of subluxation was identified. The patient had excellent extension and no contracture across the quads. Hip was then dislocated trial components were removed who was copious irrigated to control any excess bleeding. Appropriate glove change was performed we then impacted the size 3 Accolade 2 press-fit stem again from [facility] using standard technique retrial showed better positioning with -3 offset in the head again a 45 mm outer diameter with a 26 mm inner diameter was then impacted using standard technique. Hip was reduced stability rechecked and confirmed with excellent positioning. Wounds then copious irrigated additional time and then the capsule and short external rotators were repaired through the greater trochanter using standard technique and any interval closure between the capsule and the gluteus medius was repaired. We then performed a standard layer closure with #1 Vicryl using [id number] technique to the IT band and tensor fascia. Skin was reapproximated with 2-0 Vicryl. Running subicular Monocryl Dermabond application and Silverlon placement. I was scrubbed and available time during our procedure. We had no drains or complications. Again implants included the [facility] Accolade 132? femoral neck angle secondary to a preoperative 137 on the contralateral side. We used a universal bipolar head with 45 mm outer diameter and a 26 mm inner diameter again from [facility]. Patient be admitted to floor for 24 hours of IV antibiotics appropriate IV and p.o. pain medication and DVT prophylaxis to include SCDs teds Lovenox 30 mg subcu daily. Patient's H&H will be followed accordingly that she did have preoperative anemia and will likely drop from postoperative exposure and hemodilution. Patient is otherwise weightbearing as tolerated following posterior hip precautions. Any major issues please contact me. 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
--- NOTE | 2018-02-22 07:53 | OP.PCM_ITS ---
Report of Operation Date of Procedure: 02/21/18 Pre-Operative Diagnosis: Right hip displaced femoral neck fracture closed Post-Operative Diagnosis: Same as above Surgery/Procedure Performed:: Right hip hemiarthroplasty-[place] Accolade press- fit Description of Surgical Findings:: 82-year-old female with fall from standing height resulting in a right closed displaced femoral neck fracture. Patient was admitted to the floor by the hospitalist team evaluated and cleared for surgical intervention. Patient was counseled and consented for the aforementioned procedure. She is met in the holding area where the right lower extremity was marked and identified by the orthopedic surgeon. Patient was taken to the operating room in satisfactory condition with somewhat to place to identify patient operative procedure and limb. Patient received 2 g of Ancef and 1 g of TXA. She underwent a successful intubation. She was then placed into the left lateral decubitus position with well-padded axillary roll and a down leg to protect the peroneal nerve. She was then prepped and draped in usual fashion. Patient had a 10 cm incision made two thirds proximal one third distal to the greater trochanter with sharp dissection down to the soft tissues and Bovie cautery control any bleeding. The tensor fascia and the IT band were longitudinally split. Patient had a small removal bursal tissue over top of the trochanter to identify the short external rotators and the gluteals. Patient then underwent a standard posterior approach with takedown of the short external rotators while the leg was gently internally rotated. The piriformis tendon was preserved. Capsule was identified longitudinally split up to the labral tissue. Fracture line was obviously visible. Patient had fractured to the distal one third of the femoral neck not quite a basicervical fracture. Fracture line was then freshened using a sagittal saw using standard technique. At that point time the head was then gently removed in continuity. Patient showed no signs of obvious arthrosis. Cotyloid and ligamentous were atrophied and then cauterized. Head diameter was measured and we elected to use a 45 mm universal bipolar head from [facility]. At that point time the femoral neck was presented and standard preparation was undertaken. Upon initial broaching I concerns about the small nature of the patient and the initial cementing broach which would not move easily down the canal. We elected to bring in the press-fit stems did an initial preparatory opening and again still felt that I was stressing the canal trying to place the initial cementing broach in place. I then elected to convert completely to a press-fit system. We gently broached up to a size 3 stem with good positioning. At that point time 0 offset neck was introduced we placed him and reduced the hip using trial components. We had excellent leg length and stability. The hip could be flexed and internally rotated to roughly 70? before any form of subluxation was identified. The patient had excellent extension and no contracture across the quads. Hip was then dislocated trial components were removed who was copious irrigated to control any excess bleeding. Appropriate glove change was performed we then impacted the size 3 Accolade 2 press-fit stem again from [facility] using standard technique retrial showed better positioning with -3 offset in the head again a 45 mm outer diameter with a 26 mm inner diameter was then impacted using standard technique. Hip was reduced stability rechecked and confirmed with excellent positioning. Wounds then copious irrigated additional time and then the capsule and short external rotators were repaired through the greater trochanter using standard technique and any interval closure between the capsule and the gluteus medius was repaired. We then performed a standard layer closure with #1 Vicryl using [id number] technique to the IT band and tensor fascia. Skin was reapproximated with 2-0 Vicryl. Running subicular Monocryl Dermabond application and Silverlon placement. I was scrubbed and available time during our procedure. We had no drains or complications. Again implants included the [place] Accolade 132? femoral neck angle secondary to a preoperative 137 on the contralateral side. We used a universal bipolar head with 45 mm outer diameter and a 26 mm inner diameter again from [place]. Patient be admitted to floor for 24 hours of IV antibiotics appropriate IV and p.o. pain medication and DVT prophylaxis to include SCDs teds Lovenox 30 mg subcu daily. Patient's H&H will be followed accordingly that she did have preoperative anemia and will likely drop from postoperative exposure and hemodilution. Patient is otherwise weightbearing as tolerated following posterior hip precautions. Any major issues please contact me. 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
[2018-02-22] MEDS: Aspirin 81 MG TAB.CHEW PO (08:40)
[2018-02-22] MEDS: Famotidine 20 MG Tablet PO (08:40)
--- NOTE | 2018-02-22 08:45 | CASEMGMT ---
Social Work Note SW received message from Rebecca with [employer] stating that she has loaded pre-cert with pt's insurance and is waiting to hear from insurance. Plan: [employer] pending pre-cert Kamilla Chery BUILDING SERVICES SUPERVISOR, NARROW GAUGE ENGINEER
[2018-02-22] MEDS: 0.9% Normal Saline 1,000 ML 999 ML IV (08:50)
[2018-02-22] MEDS: Multivitamins,Therapeutic Tablet 1 TABLET PO (09:53)
[2018-02-22] MEDS: Iron Polysaccharide Complex 150 MG CAPSULE PO (09:53)
[2018-02-22] MEDS: Ascorbic Acid 500 MG Tablet PO (09:53)
--- NOTE | 2018-02-22 10:06 | PCM.PN.HOSP ---
Patient Problems: Active and Suspected Problems Closed right hip fracture (Acute) Subjective: Patient is an 82-year-old female with a past medical history apart from hypertension, hyperlipidemia and osteoporosis who was admitted via the ED on 02/19/2018 after she felt dizzy and fell. 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 She denied any abdominal heart rhythm, any chest pain or shortness of breath and does not think she passed out or lost consciousness. She has never passed out like this before in the past. X-ray showed fracture of the right femoral neck. Labs only significant for hemoglobin of 10.6. EKG showed normal sinus rhythm with a heart rate of 70 bpm. She was managed for right femoral hip fracture and syncope. She had surgery by orthopedics on 02/21/2018. Patient subsequently has not had another syncopal episode after surgery and was found to be hypotensive and given IV fluids. She has remained stable. Patient seen and examined this morning. She felt well and had no complaints. She did have any more syncopal episodes overnight. However according to nurse. Last night she had a very short run of V. tach. Patient denied any shortness of breath, any palpitations, any dizziness or lightheadedness and pain is very well controlled. Review of systems otherwise negative.She however does look very pale. Labs reviewed and show that patient had hemoglobin of 6.6. This may be due to acute blood loss from surgery. platelets and white cell count have als fallen and so I am suspecting that this may also be more dilutional due to IV fluids administered. However I do not think that fluids alone would cause the hemoglobin to drop from about 9-6.6. I will therefore go ahead and give patient 2 units of packed red blood cells. Vitals/I&O's: Vital Signs Temp Pulse Resp BP Pulse Ox 98.0 F 80 18 124/92 H 96 02/22/18 09:35 02/22/18 09:35 02/22/18 09:35 02/22/18 09:35 02/22/18 09:35 Oxygen Flow Rate (L/min) 2 Oxygen Delivery Method Room Air Weight: 101 lb 6.602 oz Body Mass Index (BMI) 19.8 Orthostatic Vital Signs Start: 02/20/18 01:03 Freq: q24h Status: Active Protocol: Activity Type Activity Date Activity User E-Sign Co-Sign Detail Recorded Client Recorded Date Recorded By Document 02/21/18 16:32 [facility] [id number] 02/21/18 16:33 [facility] 02/21/18 16:32 Orthostatic Vitals Sitting -Blood Pressure (90/60-120/80) 87/53 L -Extremity Use Right Arm -Pulse Rate (60-100) 82 Lying -Blood Pressure (90/60-120/80) 103/52 L -Extremity Use Right Arm -Pulse Rate (60-100) 82 Intake and Output for Last 24 Hours 02/20/18 02/21/18 02/22/18 23:59 23:59 23:59 Intake Total 1316 / 1316 3761 / 3761 1965 / 1965 Output Total 1100 / 1100 1025 / 1025 875 / 875 Balance 216 / 216 2736 / 2736 1091 / 1091 General: Alert, Oriented x3, Cooperative, No apparent distress HEENT: Atraumatic, PERRLA, EOMI, Normocephalic, - - mucosa pale Oral: Moist Mucosa Neck: Supple, No JVD, Negative Carotid Bruits, No Nodes Lungs: Clear to auscultation, Normal air movement, No rhonchi, No wheeze, No rales Cardiovascular: Regular rate, Regular Rhythm, Normal S1, Normal S2, No murmurs Abdomen: Bowel Sounds Present, Soft, Non Tender, Non-Distended, No Hepato-splenomegaly Extremities: No clubbing, No cyanosis, No edema, Capillary Refill Less than 3 Seconds, - - dressing over RLE hip is clean and dry Skin: No rashes, No breakdown Musculoskeletal: No Tenderness to Palpation of Joints or Extremities Lymphatic: No Cervical, Supraclavicular, or Inguinal Adenopathy Neurological: Cranial nerves II-XII grossly intact Psych/Mental Status: Normal Affect, Appropriate, Alert and oriented to time, place, person, mood and affect Laboratory Results 02/21/18 10:26: PT 15.8 H, INR 1.3 02/21/18 10:26: WBC 9.9, RBC 3.09 L, Hgb 9.7 L, Hct 29.3 L, MCV 94.8, MCH 31.4, MCHC 33.1, RDW 13.0, RDW Differential 45.2 H, Plt Count 160, MPV 10.5 02/21/18 10:26: Sodium 134 L, Potassium 3.4 L, Chloride 104, Carbon Dioxide 22.0, Anion Gap 8, BUN 10, Creatinine 0.46 L, Estim Creat Clear Calc 30.62, Est GFR (MDRD) Af Amer 168, Est GFR (MDRD) Non-Af 139, BUN/Creatinine Ratio 21.9 H, Glucose 104, Calcium 7.0 L 02/21/18 16:08: POC Glucose 202 H 02/21/18 19:51: Potassium 3.4 L, Magnesium 1.5 L 02/22/18 05:25: WBC 5.4, RBC 2.08 L, Hgb 6.6 L, Hct 20.1 L, MCV 96.6, MCH 31.7, MCHC 32.8, RDW 12.3, RDW Differential 41.5, Plt Count 135 L, MPV 11.3 02/22/18 05:25: Sodium 140, Potassium 3.6, Chloride 107, Carbon Dioxide 29.0, Anion Gap 4 L, BUN 10, Creatinine 0.41 L, Estim Creat Clear Calc 30.62, Est GFR (MDRD) Af Amer 188, Est GFR (MDRD) Non-Af 156, BUN/Creatinine Ratio 24.2 H, Glucose 133 H, Calcium 6.8 L 02/22/18 05:25: Magnesium 1.5 L Current Medications Acetaminophen (Tylenol) 650 mg PO Q6H PRN PRN PRN Reason: Mild Pain (scale 0-3)/T>100.7 Acetaminophen (Tylenol) 1,000 mg PO Q8 [facility] Last Admin: 02/22/18 06:22 Dose: 1,000 mg Al Hydroxide/Mg Hydroxide (Mylanta Ii) 30 ml PO Q6H PRN PRN PRN Reason: Gastric Burning Alendronate Sodium (Fosamax) 70 mg PO Tu@0700 [facility] Ascorbic Acid (Vitamin C) 500 mg PO DAILY@0800 [facility] Last Admin: 02/22/18 09:53 Dose: 500 mg Aspirin (Aspirin, Baby) 81 mg PO DAILY@0800 [facility] Last Admin: 02/22/18 08:40 Dose: 81 mg Atorvastatin Calcium (Lipitor) 20 mg PO QHS [facility] Last Admin: 02/21/18 21:13 Dose: 20 mg Bisacodyl (Dulcolax) 10 mg RECTAL DAILY PRN PRN PRN Reason: Constipation Docusate Sodium (Colace) 200 mg PO BID PRN PRN PRN Reason: Constipation Enoxaparin Sodium (Lovenox) 30 mg SC DAILY@0600 [facility] Last Admin: 02/22/18 06:22 Dose: 30 mg Ergocalciferol (Vitamin D) 50,000 unit PO MoFr@0800 [facility] Last Admin: 02/22/18 08:40 Dose: 50,000 unit Famotidine (Pepcid) 20 mg PO DAILY [facility] Last Admin: 02/22/18 08:40 Dose: 20 mg Magnesium Sulfate (4 Gm/100 Ml) 4 gm in 100 mls @ 25 mls/hr IV X1 ONE Stop: 02/22/18 11:59 Last Admin: 02/22/18 09:54 Dose: 25 mls/hr Morphine Sulfate () 1 - 2 mg IV Q4H PRN PRN PRN Reason: SEVERE PAIN (6-10/10) Last Admin: 02/21/18 03:16 Dose: 2 mg [facility]) [facility] Last Admin: 02/22/18 09:53 Dose: 1 tablet Nutritional Formula (Lactose Free) (Ensure Clear) 120 ml PO TIDCM [facility] Last Admin: 02/22/18 08:46 Dose: Not Given Ondansetron HCl (Zofran) 4 mg IV Q8H PRN PRN PRN Reason: Nausea Oxycodone HCl (Oxyir) 5 mg PO Q4H PRN PRN PRN Reason: Moderate Pain (pain scale 4-5) Last Admin: 02/22/18 02:28 Dose: 5 mg Polyethylene Glycol (Miralax) 17 gm PO DAILY [facility] Last Admin: 02/22/18 08:41 Dose: Not Given Polysaccharide Iron Complex (Ferrex 150) [facility] Last Admin: 02/22/18 09:53 Dose: 150 mg Sodium Chloride () 5 - 30 ml IV UD PRN PRN Reason: SALINE FLUSH Valsartan (Diovan) 40 mg PO DAILY [facility] Last Admin: 02/22/18 08:50 Dose: Not Given Zolpidem Tartrate (Ambien (Generic)) 5 mg PO QHS PRN PRN PRN Reason: INSOMNIA Medical Necessity - Tobacco Use Smoking Status: Never smoker Tobacco Use: Non-smoker Assessment/Plan All Active Problems Closed right hip fracture (Acute) 82-year-old female admitted with a complaint of dizziness and fall after she sustained a right femoral hip fracture. 1. ANemia, likely due to acute blood loss baseline Hb on admission was ~ 10 Hb today is 6.6; all other indices have fallen. However, drop in Hb is too severe to be just due to hemodilution will give 2 units of PRBCs and monitor will check FOBT also to assess for GI bleed. Patient will be on anticoagulation for DVT prophylaxis o/a of surgery, so will want to make sure she doesnt have any GI bleed. 2. Right closed femoral hip fracture s/p surgery- POD 1 has no complaints. Pain well controlled PT/OT on board on tyelenol, morphine and oxycodone for pain 3. Syncope had another episode of syncope yesterday after surgery. May have been due to acute blood loss Magnesium was slightly low 1.5 was replaced. Potassium was also 3.4 please. 2D echo: EF of 60% with normal LV and mild diastolic dysfunction, no regional wall motion abnormalites noted. PA systolic pressue is 34mmHg. Also been due to hypotension his blood pressure has been down in the 80s. Being resuscitated with IV fluids. Will monitor. 4. HTN: Hold valsartan on account of hypotension been in the 80s systolic. 5. Osteoporosis: on fosamax and vitamin D 6. Hypokalemia: resolved. K today is 3.6 7. Hypomagnesemia: Mg is 1.5. Will replace and monitor 8. DVT prophylaxis: lovenox 30mg daily. Held per ortho, likely due to anemia. SCDs Disposition: for dc to TCU for rehab once precert is received and she is medically cleared. Code Visit Inpatient E&M: 33415 Subs Hosp L3
--- NOTE | 2018-02-22 10:17 | PN_ITS ---
Patient Problems: Active and Suspected Problems Closed right hip fracture (Acute) Subjective: Patient is an 82-year-old female with a past medical history apart from hypertension, hyperlipidemia and osteoporosis who was admitted via the ED on 05/2018 after she felt dizzy and fell. 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 She denied any abdominal heart rhythm, any chest pain or shortness of breath and does not think she passed out or lost consciousness. She has never passed out like this before in the past. X-ray showed fracture of the right femoral neck. Labs only significant for hemoglobin of 10.6. EKG showed normal sinus rhythm with a heart rate of 70 bpm. She was managed for right femoral hip fracture and syncope. She had surgery by orthopedics on 02/21/2018. Patient subsequently has not had another syncopal episode after surgery and was found to be hypotensive and given IV fluids. She has remained stable. Patient seen and examined this morning. She felt well and had no complaints. She did have any more syncopal episodes overnight. However according to nurse. Last night she had a very short run of V. tach. Patient denied any shortness of breath, any palpitations, any dizziness or lightheadedness and pain is very well controlled. Review of systems otherwise negative.She however does look very pale. Labs reviewed and show that patient had hemoglobin of 6.6. This may be due to acute blood loss from surgery. platelets and white cell count have als fallen and so I am suspecting that this may also be more dilutional due to IV fluids administered. However I do not think that fluids alone would cause the hemoglobin to drop from about 9-6.6. I will therefore go ahead and give patient 2 units of packed red blood cells. Vitals/I&O's: Vital Signs Temp Pulse Resp BP Pulse Ox 98.0 F 80 18 124/92 H 96 02/22/18 09:35 02/22/18 09:35 02/22/18 09:35 02/22/18 09:35 02/22/18 09:35 Oxygen Flow Rate (L/min) 2 Oxygen Delivery Method Room Air Weight: 101 lb 6.602 oz Body Mass Index (BMI) 19.8 Orthostatic Vital Signs Start: 02/20/18 01:03 Freq: q24h Status: Active Protocol: Activity Type Activity Date Activity User E-Sign Co-Sign Detail Recorded Client Recorded Date Recorded By Document 02/21/18 16:32 [facility] [id number] 02/21/18 16:33 [facility] 02/21/18 16:32 Orthostatic Vitals Sitting -Blood Pressure (90/60-120/80) 87/53 L -Extremity Use Right Arm -Pulse Rate (60-100) 82 Lying -Blood Pressure (90/60-120/80) 103/52 L -Extremity Use Right Arm -Pulse Rate (60-100) 82 Intake and Output for Last 24 Hours 02/20/18 02/21/18 02/22/18 23:59 23:59 23:59 Intake Total 1316 / 1316 3761 / 3761 1965 / 1965 Output Total 1100 / 1100 1025 / 1025 875 / 875 Balance 216 / 216 2736 / 2736 1091 / 1091 General: Alert, Oriented x3, Cooperative, No apparent distress HEENT: Atraumatic, PERRLA, EOMI, Normocephalic, - - mucosa pale Oral: Moist Mucosa Neck: Supple, No JVD, Negative Carotid Bruits, No Nodes Lungs: Clear to auscultation, Normal air movement, No rhonchi, No wheeze, No rales Cardiovascular: Regular rate, Regular Rhythm, Normal S1, Normal S2, No murmurs Abdomen: Bowel Sounds Present, Soft, Non Tender, Non-Distended, No Hepato- splenomegaly Extremities: No clubbing, No cyanosis, No edema, Capillary Refill Less than 3 Seconds, - - dressing over RLE hip is clean and dry Skin: No rashes, No breakdown Musculoskeletal: No Tenderness to Palpation of Joints or Extremities Lymphatic: No Cervical, Supraclavicular, or Inguinal Adenopathy Neurological: Cranial nerves II-XII grossly intact Psych/Mental Status: Normal Affect, Appropriate, Alert and oriented to time, place, person, mood and affect Laboratory Results 02/21/18 10:26: PT 15.8 H, INR 1.3 02/21/18 10:26: WBC 9.9, RBC 3.09 L, Hgb 9.7 L, Hct 29.3 L, MCV 94.8, MCH 31.4, MCHC 33.1, RDW 13.0, RDW Differential 45.2 H, Plt Count 160, MPV 10.5 02/21/18 10:26: Sodium 134 L, Potassium 3.4 L, Chloride 104, Carbon Dioxide 22.0 , Anion Gap 8, BUN 10, Creatinine 0.46 L, Estim Creat Clear Calc 30.62, Est GFR (MDRD) Af Amer 168, Est GFR (MDRD) Non-Af 139, BUN/Creatinine Ratio 21.9 H, Glucose 104, Calcium 7.0 L 02/21/18 16:08: POC Glucose 202 H 02/21/18 19:51: Potassium 3.4 L, Magnesium 1.5 L 02/22/18 05:25: WBC 5.4, RBC 2.08 L, Hgb 6.6 L, Hct 20.1 L, MCV 96.6, MCH 31.7, MCHC 32.8, RDW 12.3, RDW Differential 41.5, Plt Count 135 L, MPV 11.3 02/22/18 05:25: Sodium 140, Potassium 3.6, Chloride 107, Carbon Dioxide 29.0, Anion Gap 4 L, BUN 10, Creatinine 0.41 L, Estim Creat Clear Calc 30.62, Est GFR (MDRD) Af Amer 188, Est GFR (MDRD) Non-Af 156, BUN/Creatinine Ratio 24.2 H, Glucose 133 H, Calcium 6.8 L 02/22/18 05:25: Magnesium 1.5 L Current Medications Acetaminophen (Tylenol) 650 mg PO Q6H PRN PRN PRN Reason: Mild Pain (scale 0-3)/T>100.7 Acetaminophen (Tylenol) 1,000 mg PO Q8 [facility] Last Admin: 02/22/18 06:22 Dose: 1,000 mg Al Hydroxide/Mg Hydroxide (Mylanta Ii) 30 ml PO Q6H PRN PRN PRN Reason: Gastric Burning Alendronate Sodium (Fosamax) 70 mg PO Tu@0700 [facility] Ascorbic Acid (Vitamin C) 500 mg PO DAILY@0800 [facility] Last Admin: 02/22/18 09:53 Dose: 500 mg Aspirin (Aspirin, Baby) 81 mg PO DAILY@0800 [facility] Last Admin: 02/22/18 08:40 Dose: 81 mg Atorvastatin Calcium (Lipitor) 20 mg PO QHS [facility] Last Admin: 02/21/18 21:13 Dose: 20 mg Bisacodyl (Dulcolax) 10 mg RECTAL DAILY PRN PRN PRN Reason: Constipation Docusate Sodium (Colace) 200 mg PO BID PRN PRN PRN Reason: Constipation Enoxaparin Sodium (Lovenox) 30 mg SC DAILY@0600 [facility] Last Admin: 02/22/18 06:22 Dose: 30 mg Ergocalciferol (Vitamin D) 50,000 unit PO MoFr@0800 [facility] Last Admin: 02/22/18 08:40 Dose: 50,000 unit Famotidine (Pepcid) 20 mg PO DAILY [facility] Last Admin: 02/22/18 08:40 Dose: 20 mg Magnesium Sulfate (4 Gm/100 Ml) 4 gm in 100 mls @ 25 mls/hr IV X1 ONE Stop: 02/22/18 11:59 Last Admin: 02/22/18 09:54 Dose: 25 mls/hr Morphine Sulfate () 1 - 2 mg IV Q4H PRN PRN PRN Reason: SEVERE PAIN (6-10/10) Last Admin: 02/21/18 03:16 Dose: 2 mg [facility] Last Admin: 02/22/18 09:53 Dose: 1 tablet Nutritional Formula (Lactose Free) (Ensure Clear) 120 ml PO TIDCM [facility] Last Admin: 02/22/18 08:46 Dose: Not Given Ondansetron HCl (Zofran) 4 mg IV Q8H PRN PRN PRN Reason: Nausea Oxycodone HCl (Oxyir) 5 mg PO Q4H PRN PRN PRN Reason: Moderate Pain (pain scale 4-5) Last Admin: 02/22/18 02:28 Dose: 5 mg Polyethylene Glycol (Miralax) 17 gm PO DAILY [facility] Last Admin: 02/22/18 08:41 Dose: Not Given Polysaccharide Iron Complex (Ferrex 150) [facility] Last Admin: 02/22/18 09:53 Dose: 150 mg Sodium Chloride () 5 - 30 ml IV UD PRN PRN Reason: SALINE FLUSH Valsartan (Diovan) 40 mg PO DAILY [facility] Last Admin: 02/22/18 08:50 Dose: Not Given Zolpidem Tartrate (Ambien (Generic)) 5 mg PO QHS PRN PRN PRN Reason: INSOMNIA Medical Necessity - Tobacco Use Smoking Status: Never smoker Tobacco Use: Non-smoker Assessment/Plan All Active Problems Closed right hip fracture (Acute) 82-year-old female admitted with a complaint of dizziness and fall after she sustained a right femoral hip fracture. 1. ANemia, likely due to acute blood loss * baseline Hb on admission was ~ 10 * Hb today is 6.6; all other indices have fallen. However, drop in Hb is too severe to be just due to hemodilution * will give 2 units of PRBCs and monitor * will check FOBT also to assess for GI bleed. Patient will be on anticoagulation for DVT prophylaxis o/a of surgery, so will want to make sure she doesnt have any GI bleed. * 2. Right closed femoral hip fracture s/p surgery- POD 1 * has no complaints. Pain well controlled * PT/OT on board * on tyelenol, morphine and oxycodone for pain * * * 3. Syncope * had another episode of syncope yesterday after surgery. May have been due to acute blood loss * Magnesium was slightly low 1.5 was replaced. Potassium was also 3.4 please. * 2D echo: EF of 60% with normal LV and mild diastolic dysfunction, no regional wall motion abnormalites noted. PA systolic pressue is 34mmHg. * Also been due to hypotension his blood pressure has been down in the 80s. Being resuscitated with IV fluids. Will monitor. * 4. HTN: Hold valsartan on account of hypotension been in the 80s systolic. 5. Osteoporosis: on fosamax and vitamin D 6. Hypokalemia: resolved. K today is 3.6 7. Hypomagnesemia: Mg is 1.5. Will replace and monitor 8. DVT prophylaxis: lovenox 30mg daily. Held per ortho, likely due to anemia. SCDs Disposition: for dc to TCU for rehab once precert is received and she is medically cleared. Code Visit Inpatient E&M: [id number] [facility] Hosp L3
[2018-02-22 10:36] LABS: Hematocrit 19.9 % (37-47); Hemoglobin 6.5 g/dl (12.0-15.0)
[2018-02-22] MEDS: Polyethylene Glycol 3350 17 GM PACKET PO (14:07)
[2018-02-22] MEDS: Atorvastatin Calcium 20 MG Tablet PO (20:53)
[2018-02-22 21:36] LABS: Hematocrit 28.5 % (37-47); Hemoglobin 9.4 g/dl (12.0-15.0)
[2018-02-23] VITALS (12 sets, daily range): BP systolic 122–154; BP diastolic 58–77; PULSE 82–95; RESP 18; TEMP 36.8–37.9; O2SAT 94–96
[2018-02-23] MEDS: oxyCODONE 5 MG Tablet PO ×2 (01:53→12:43)
[2018-02-23] MEDS: Acetaminophen 500 MG Tablet 1000 MG PO ×3 (05:56→22:36)
[2018-02-23] MEDS: Docusate Sodium 100 MG Capsule 200 MG PO (05:56)
--- NOTE | 2018-02-23 07:32 | PN_ITS ---
Patient Problems: Active and Suspected Problems Closed right hip fracture (Acute) Subjective: Patient was seen and examined. Complains of sore throat and cough. Seems to be unable to use incentive spirometer. Denies fever, chills, SOB, chest pain. She feels achy all over. No other acute events overnight per from constipation for which she has been medicated. Insurance precertification for discharge to rehab unit is ongoing. Objective: Physical exam: General: Alert, Oriented x3, Cooperative, in some apparent distress, looks pale , not jaundiced HEENT: Atraumatic, PERRLA, EOMI, Normocephalic, Oral: Moist Mucosa Neck: Supple, No JVD, Negative Carotid Bruits, No Nodes Lungs: Diminished air entry at the lung bases, otherwise vesicular breath sounds Cardiovascular: Regular rate, Regular Rhythm, Normal S1, Normal S2, No murmurs Abdomen: Bowel Sounds Present, Soft, Non Tender, Non-Distended, No Hepato- splenomegaly Extremities: No pedal edema, edema of upper extremities - - dressing over RLE hip is clean and dry Skin: No rashes, No breakdown Musculoskeletal: No Tenderness to Palpation of Joints or Extremities Lymphatic: No Cervical, Supraclavicular, or Inguinal Adenopathy Neurological: Cranial nerves II-XII grossly intact Psych/Mental Status: Normal Affect, Appropriate, Alert and oriented to time, place, person, mood and affect Vitals/I&O's: Vital Signs Temp Pulse Resp BP Pulse Ox 98.2 F 84 18 125/62 H 95 02/23/18 02:04 02/23/18 04:05 02/23/18 02:04 02/23/18 02:04 02/23/18 02:04 Oxygen Flow Rate (L/min) 2 Oxygen Delivery Method Room Air Weight: 46 kg Body Mass Index (BMI) 19.8 Intake and Output for Last 24 Hours 02/21/18 02/22/18 02/23/18 23:59 23:59 23:59 Intake Total 3761 / 3761 5090 / 5090 611.9 / 611.9 Output Total 1025 / 1025 1825 / 1825 525 / 525 Balance 2736 / 2736 3265 / 3265 86.9 / 86.9 Microbiology Past 72 Hours 02/22/18 18:44 Stool Stool Occult Blood (PILLO) - Final Laboratory Results 02/20/18 05:24: Crossmatch See Detail 02/22/18 10:16: Hgb 6.5 L, Hct 19.9 L 02/22/18 20:40: Hgb 9.4 L, Hct 28.5 L Current Medications Acetaminophen (Tylenol) 650 mg PO Q6H PRN PRN PRN Reason: Mild Pain (scale 0-3)/T>100.7 Acetaminophen (Tylenol) 1,000 mg PO Q8 [facility] Last Admin: 02/23/18 05:56 Dose: 1,000 mg Al Hydroxide/Mg Hydroxide (Mylanta Ii) 30 ml PO Q6H PRN PRN PRN Reason: Gastric Burning Alendronate Sodium (Fosamax) 70 mg PO Tu@0700 [facility] Ascorbic Acid (Vitamin C) 500 mg PO DAILY@0800 [facility] Last Admin: 02/22/18 09:53 Dose: 500 mg Atorvastatin Calcium (Lipitor) 20 mg PO QHS [facility] Last Admin: 02/22/18 20:53 Dose: 20 mg Bisacodyl (Dulcolax) 10 mg RECTAL DAILY PRN PRN PRN Reason: Constipation Docusate Sodium (Colace) 200 mg PO BID PRN PRN PRN Reason: Constipation Last Admin: 02/23/18 05:56 Dose: 200 mg Enoxaparin Sodium (Lovenox) 30 mg SC DAILY@0600 [facility] Last Admin: 02/22/18 06:22 Dose: 30 mg Ergocalciferol (Vitamin D) 50,000 unit PO MoFr@0800 [facility] Last Admin: 02/22/18 08:40 Dose: 50,000 unit Famotidine (Pepcid) 20 mg PO DAILY [facility] Last Admin: 02/22/18 08:40 Dose: 20 mg Morphine Sulfate () 1 - 2 mg IV Q4H PRN PRN PRN Reason: SEVERE PAIN (6-10/10) Last Admin: 02/21/18 03:16 Dose: 2 mg [facility]) [facility] Last Admin: 02/22/18 09:53 Dose: 1 tablet Nutritional Formula (Lactose Free) (Ensure Clear) 120 ml PO TIDCM [facility] Last Admin: 02/22/18 16:25 Dose: 120 ml Ondansetron HCl (Zofran) 4 mg IV Q8H PRN PRN PRN Reason: Nausea Oxycodone HCl (Oxyir) 5 mg PO Q4H PRN PRN PRN Reason: Moderate Pain (pain scale 4-5) Last Admin: 02/23/18 01:53 Dose: 5 mg Polyethylene Glycol (Miralax) 17 gm PO DAILY [facility] Last Admin: 02/22/18 14:07 Dose: 17 gm Polysaccharide Iron Complex (Ferrex 150) 150 mg PO DAILYCM [facility] Last Admin: 02/22/18 09:53 Dose: 150 mg Sodium Chloride () 5 - 30 ml IV UD PRN PRN Reason: SALINE FLUSH Valsartan (Diovan) 40 mg PO DAILY [facility] Last Admin: 02/22/18 08:50 Dose: Not Given Zolpidem Tartrate (Ambien (Generic)) 5 mg PO QHS PRN PRN PRN Reason: INSOMNIA Medical Necessity - Tobacco Use Smoking Status: Never smoker Tobacco Use: Non-smoker Assessment/Plan All Active Problems Closed right hip fracture (Acute) 82-year-old female with a past medical history of hypertension, hyperlipidemia and osteoporosis admitted on 02/19/2018 after an episode of dizziness and fall. No associated syncope per patient's history. History of syncope in the past. Admitting x-ray shows right femoral neck transection. She had surgery done on . No acute syncopal episode was seen since admission. Hemoglobin was found to be low yesterday and was transfused 2 packed RBCs. 1. Acute blood loss anemia, likely postop/hemodilution related, status post 2 packed RBC transfusion, Hb this morning is 9.3. Stool for occult blood has not been done as patient has constipation, follow-up on results. No repeat labs tomorrow unless indicated. 2. Constipation, opioid related, giving bowel regimen 3. Postop day #2 status post right hip arthroplasty, pain is not very controlled, scheduled Tylenol, oxycodone and morphine as needed. Will DC Justice catheter, encourage ambulation per physical and occupational therapy and as well as orthopedic recommendation 4. Syncope, unclear etiology, likely related to anemia, patient's 2D echo showed EF of 60% with normal LV and mild diastolic dysfunction , no regional wall motion abnormalites noted. PA systolic pressue is 34mmHg. Will need cardiology follow-up on discharge 5. Hypertension, blood pressures have been controlled, did not receive her valsartan yesterday on account of hypotension, decrease valsartan to 20 mg p.o. daily, will continue to monitor blood pressures 6. Osteoporosis, on fosamax and vitamin D 7. Hypokalemia, hypomagnesemia, potassium this morning is 3.5, Mg is pending 8. DVT prophylaxis: SCDS, Lovenox on hold on account of anemia Code Visit Inpatient E&M: 70069 Subs Hosp L2
[2018-02-23 08:13] LABS: Absolute Lymphocyte Count 1.08 X10^3/ul (0.83-4.51); Absolute Neutrophil Count 5.2 X10^3/uL (2.0-7.7); Basophil# 0.03 X10^3/uL; Basophil% 0.4 % (0-1); Eosinophil# 0.21 X10^3/uL; Eosinophils% 2.9 % (0-5); Hematocrit 27.4 % (37-47); Hemoglobin 9.3 g/dl (12.0-15.0); Lymphocyte # 1.08 X10^3/ul (4.0); Mean Corp Hgb Conc 33.9 g/gl (32-36); Mean Corpuscular Hgb 30.5 pg (27.0-32.0); Mean Corpuscular Volume 89.8 fL (81-99); Mean Platelet Vol. 11.3 fl (6.2-12.0); Monocyte# 0.66 X10^3/uL; Monocyte% 9.2 % (0-10); Neutrophil % 72.2 % (47-70); Platelet Count 157 K/mm3 (150-450); RBC Distribution Width CV 15.9 % (11.6-14.6); RBC Distribution Width SD 51.3 fl (35.1-43.9); Red Blood Count 3.05 M/mm3 (4.2-5.4); White Blood Count 7.2 K/mm3 (4.4-11.0)
[2018-02-23 08:16] LABS: POSITIVE COUNT NO; POSITIVE DIFFERENTIAL NO; POSITIVE MORPHOLOGY NO
[2018-02-23 08:24] LABS: Anion Gap 7 (5-15); BUN 17 mg/dL (7-18); Calcium,Total 7.1 mg/dL (8.5-10.1); Chloride 110 mmol/L (98-107); EST Glomerular Filtration Rate 164 mL/min (>60); Est Glom Filt Rate - Afr Amer 199 mL/min (>60); Estimated Creatinine Clearance 30.62 ml/min; Glucose 98 mg/dL (74-106); Potassium 3.5 mmol/L (3.5-5.1); Sodium Level 143 mmol/L (136-145)
[2018-02-23] MEDS: Multivitamins,Therapeutic Tablet 1 TABLET PO (08:33)
[2018-02-23] MEDS: Ascorbic Acid 500 MG Tablet PO (08:33)
[2018-02-23] MEDS: Iron Polysaccharide Complex 150 MG CAPSULE PO (08:33)
[2018-02-23 08:54] LABS: Magnesium 2.1 mg/dL (1.6-2.6)
[2018-02-23] MEDS: VALSARTAN 40 MG TABLET PO (10:25)
[2018-02-23] MEDS: Senna Tablet 2 TABLET PO ×2 (10:25→22:38)
[2018-02-23] MEDS: Famotidine 20 MG Tablet PO (10:25)
[2018-02-23] MEDS: BENZOCAINE/MENTHOL 1 LOZENGE MUCOUS MEM (10:25)
[2018-02-23] MEDS: Polyethylene Glycol 3350 17 GM PACKET PO (10:25)
[2018-02-23] MEDS: Bisacodyl 10 MG Suppository RECTAL (15:58)
[2018-02-23] MEDS: Atorvastatin Calcium 20 MG Tablet PO (22:38)
[2018-02-24] VITALS (8 sets, daily range): BP systolic 125–136; BP diastolic 58–71; PULSE 80–96; RESP 18; TEMP 36.4–36.8; O2SAT 93–97
[2018-02-24 05:57] LABS: Hemoglobin 10.2 g/dl (12.0-15.0); Mean Corpuscular Volume 91.2 fL (81-99); Mean Platelet Vol. 10.7 fl (6.2-12.0); Platelet Count 173 K/mm3 (150-450); RBC Distribution Width CV 15.4 % (11.6-14.6); RBC Distribution Width SD 50.6 fl (35.1-43.9); Red Blood Count 3.29 M/mm3 (4.2-5.4); White Blood Count 7.3 K/mm3 (4.4-11.0)
[2018-02-24 06:22] LABS: Scan Indicated on CBC? Y/N NO
[2018-02-24] MEDS: Acetaminophen 500 MG Tablet 1000 MG PO ×3 (06:34→22:08)
[2018-02-24] MEDS: Enoxaparin 30 MG/0.3 ML Syringe SC (06:35)
--- NOTE | 2018-02-24 07:31 | PN_ITS ---
Patient Problems: Active and Suspected Problems Closed right hip fracture (Acute) Vitals/I&O's: Vital Signs Temp Pulse Resp BP Pulse Ox 98.2 F 96 18 136/71 H 96 02/24/18 02:28 02/24/18 04:00 02/24/18 02:28 02/24/18 02:28 02/24/18 02:28 Oxygen Flow Rate (L/min) 2 Oxygen Delivery Method Room Air Weight: 46 kg Body Mass Index (BMI) 19.8 Intake and Output for Last 24 Hours 02/22/18 02/23/18 02/24/18 23:59 23:59 23:59 Intake Total 5090 / 5090 1841.9 / 1841.9 250 / 250 Output Total 1825 / 1825 1325 / 1325 1250 / 1250 Balance 3265 / 3265 516.9 / 516.9 -1000 / -1000 Microbiology Past 72 Hours 02/22/18 18:44 Stool Stool Occult Blood (PILLO) - Final Laboratory Results 02/23/18 07:05: WBC 7.2, RBC 3.05 L, Hgb 9.3 L, Hct 27.4 L, MCV 89.8, MCH 30.5, MCHC 33.9, RDW 15.9 H, RDW Differential 51.3 H, Plt Count 157, MPV 11.3, Immature Gran % (Auto) 0.300, Neut % (Auto) 72.2 H, Lymph % (Auto) 15.0 L, [place] % (Auto) 9.2, Eos % (Auto) 2.9, Baso % (Auto) 0.4, Absolute Neuts (auto) 5.2, Absolute Lymphs (auto) 1.08, Total Counted Not Reportable 02/23/18 07:05: Sodium 143, Potassium 3.5, Chloride 110 H, Carbon Dioxide 26.0, Anion Gap 7, BUN 17, Creatinine 0.40 L, Estim Creat Clear Calc 30.62, Est GFR ( MDRD) Af Amer 199, Est GFR (MDRD) Non-Af 164, BUN/Creatinine Ratio 43.0 H, Glucose 98, Calcium 7.1 L 02/23/18 07:05: Magnesium 2.1 02/24/18 05:15: WBC 7.3, RBC 3.29 L, Hgb 10.2 L, Hct 30.0 L, MCV 91.2, MCH 31.0 , MCHC 34.0, RDW 15.4 H, RDW Differential 50.6 H, Plt Count 173, MPV 10.7 Current Medications Acetaminophen (Tylenol) 1,000 mg PO Q8 [facility] Last Admin: 02/24/18 06:34 Dose: 1,000 mg Al Hydroxide/Mg Hydroxide (Mylanta Ii) 30 ml PO Q6H PRN PRN PRN Reason: Gastric Burning Alendronate Sodium (Fosamax) 70 mg PO Tu@0700 [facility] Ascorbic Acid (Vitamin C) 500 mg PO DAILY@0800 [facility] Last Admin: 02/23/18 08:33 Dose: 500 mg Atorvastatin Calcium (Lipitor) 20 mg PO QHS [facility] Last Admin: 02/23/18 22:38 Dose: 20 mg Bisacodyl (Dulcolax) 10 mg RECTAL DAILY PRN PRN PRN Reason: Constipation Last Admin: 02/23/18 15:58 Dose: 10 mg Docusate Sodium (Colace) 200 mg PO BID PRN PRN PRN Reason: Constipation Last Admin: 02/23/18 05:56 Dose: 200 mg Enoxaparin Sodium (Lovenox) 30 mg SC DAILY@0600 [facility] Last Admin: 02/24/18 06:35 Dose: 30 mg Ergocalciferol (Vitamin D) 50,000 unit PO MoFr@0800 [facility] Last Admin: 02/22/18 08:40 Dose: 50,000 unit Famotidine (Pepcid) 20 mg PO DAILY [facility] Last Admin: 02/23/18 10:25 Dose: 20 mg Morphine Sulfate () 1 mg IV Q4H PRN PRN PRN Reason: SEVERE PAIN (6-10/10) Multivitamins (Multivitamin) 1 tablet PO DAILYCM [facility] Last Admin: 02/23/18 08:33 Dose: 1 tablet Nutritional Formula (Lactose Free) (Ensure Clear) 120 ml PO TIDCM [facility] Last Admin: 02/23/18 17:04 Dose: Not Given Ondansetron HCl (Zofran) 4 mg IV Q8H PRN PRN PRN Reason: Nausea Oxycodone HCl (Oxyir) 5 mg PO Q4H PRN PRN PRN Reason: Moderate Pain (pain scale 4-5) Last Admin: 02/23/18 12:43 Dose: 5 mg Polyethylene Glycol (Miralax) 17 gm PO DAILY [facility] Last Admin: 02/23/18 10:25 Dose: 17 gm Polysaccharide Iron Complex (Ferrex 150) [facility] Last Admin: 02/23/18 08:33 Dose: 150 mg Senna (Senokot) 2 tablet PO BID [facility] Last Admin: 02/23/18 22:38 Dose: 2 tablet Sodium Chloride () 5 - 30 ml IV UD PRN PRN Reason: SALINE FLUSH Throat Lozenges (Cepacol Sore Throat Lozenge) 1 lozenge MUCOUS MEM Q2H PRN PRN PRN Reason: SORE THROAT Last Admin: 02/23/18 10:25 Dose: 1 lozenge Valsartan (Diovan) 40 mg PO DAILY [facility] Last Admin: 02/23/18 10:25 Dose: 40 mg Zolpidem Tartrate (Ambien (Generic)) 5 mg PO QHS PRN PRN PRN Reason: INSOMNIA Medical Necessity - Tobacco Use Smoking Status: Never smoker Tobacco Use: Non-smoker Assessment/Plan All Active Problems Closed right hip fracture (Acute)
--- NOTE | 2018-02-24 07:55 | PN.ORTHO_ITS ---
Patient Problems: Active and Suspected Problems Closed right hip fracture (Acute) Subjective: Postop day 3 status post right hip hemiarthroplasty. Patient appears to be doing better today at this time. Patient has been transfused 2 units and H&H is improved at 06/11 today. Vital signs otherwise remained stable. Patient is resting at this point time. No acute distress. Patient is pending approval for transfer to the rehabilitation unit once insurance has been completed. - Physical Exam General: Alert, Oriented x3, Cooperative, No apparent distress Musculoskeletal: - - Patient remains distally neurovascular intact. Dressing in place. No calf pain negative Homans. EHL anterior gastrocsoleus peroneals 5 out of 5. No expanding hematoma to the thigh. Lab values reviewed and stable. Vital Signs Temp Pulse Resp BP Pulse Ox 98.2 F 96 18 136/71 H 96 02/24/18 02:28 02/24/18 04:00 02/24/18 02:28 02/24/18 02:28 02/24/18 02:28 Oxygen Flow Rate (L/min) 2 Oxygen Delivery Method Room Air Weight: 101 lb 6.602 oz Body Mass Index (BMI) 19.8 Intake and Output for Last 24 Hours 02/22/18 02/23/18 02/24/18 23:59 23:59 23:59 Intake Total 5090 / 5090 1841.9 / 1841.9 250 / 250 Output Total 1825 / 1825 1325 / 1325 1250 / 1250 Balance 3265 / 3265 516.9 / 516.9 -1000 / -1000 Microbiology Past 72 Hours 02/22/18 18:44 Stool Occult Blood (PILLO) - Final Stool Laboratory Tests Past 24 Hrs 02/23/18 02/23/18 02/23/18 07:05 07:05 07:05 WBC 7.2 RBC 3.05 L Hgb 9.3 L Hct 27.4 L MCV 89.8 MCH 30.5 MCHC 33.9 RDW 15.9 H RDW Differential 51.3 H Plt Count 157 MPV 11.3 Immature Gran % (Auto) 0.300 Neut % (Auto) 72.2 H Lymph % (Auto) 15.0 L [place] % (Auto) 9.2 Eos % (Auto) 2.9 Baso % (Auto) 0.4 Absolute Neuts (auto) 5.2 Absolute Lymphs (auto) 1.08 Total Counted Not Reportable Sodium 143 Potassium 3.5 Chloride 110 H Carbon Dioxide 26.0 Anion Gap 7 BUN 17 Creatinine 0.40 L Estim Creat Clear Calc 30.62 Est GFR (MDRD) Af Amer 199 Est GFR (MDRD) Non-Af 164 BUN/Creatinine Ratio 43.0 H Glucose 98 Calcium 7.1 L Magnesium 2.1 02/24/18 05:15 WBC 7.3 RBC 3.29 L Hgb 10.2 L Hct 30.0 L MCV 91.2 MCH 31.0 MCHC 34.0 RDW 15.4 H RDW Differential 50.6 H Plt Count 173 MPV 10.7 Immature Gran % (Auto) Neut % (Auto) Lymph % (Auto) [place] % (Auto) Eos % (Auto) Baso % (Auto) Absolute Neuts (auto) Absolute Lymphs (auto) Total Counted Sodium Potassium Chloride Carbon Dioxide Anion Gap BUN Creatinine Estim Creat Clear Calc Est GFR (MDRD) Af Amer Est GFR (MDRD) Non-Af BUN/Creatinine Ratio Glucose Calcium Magnesium Medical Necessity - Tobacco Use Smoking Status: Never smoker Tobacco Use: Non-smoker Assessment/Plan All Active Problems Closed right hip fracture (Acute) Assessment: Postop day 3 status post right hip hemiarthroplasty and postoperative anemia stable. Plan: At this point time the transfusion and change of fluid status has significant improved the patient's blood values. Platelet value is 173 today. I think it is okay to resume anticoagulation. Risk with Lovenox is development of hematoma. Could consider aspirin 325 once per day as this is a part of the protocol after total hip arthroplasty along with appropriate GI prophylaxis. Patient may shower when desired. Dressing will stay on for a total 7 days from date of operation unless signs of blister formation. There are no zaki to remove. Continue with posterior hip precautions. Continue with multivitamin and iron supplementation due to postoperative anemia. We will continue to follow this time. Any major issues return.
[2018-02-24] MEDS: Ascorbic Acid 500 MG Tablet PO (08:18)
[2018-02-24] MEDS: Multivitamins,Therapeutic Tablet 1 TABLET PO (08:18)
[2018-02-24] MEDS: Iron Polysaccharide Complex 150 MG CAPSULE PO (08:18)
--- NOTE | 2018-02-24 08:35 | PCM.PN.HOSP ---
Patient Problems: Active and Suspected Problems Closed right hip fracture (Acute) Subjective: Patient was seen and examined. Feels tired this morning. Had multiple bowel movements yesterday after bowel regimen. Had an episode where she could not urinate after removal of Justice catheter. Was straight cath for large amount of urine. Appeared to be able to void after that. Denies any fever or chills or shortness of breath. Objective: Physical exam: General: Alert, Oriented x3, Cooperative, not pale, not jaundiced HEENT: Atraumatic, PERRLA, EOMI, Normocephalic, Oral: Moist Mucosa Neck: Supple, No JVD, Negative Carotid Bruits, No Nodes Lungs: Diminished air entry at the lung bases, otherwise vesicular breath sounds Cardiovascular: Regular rate, Regular Rhythm, Normal S1, Normal S2, No murmurs Abdomen: Bowel Sounds Present, Soft, Non Tender, Non-Distended, No Hepato-splenomegaly Extremities: No pedal edema, edema of upper extremities - - dressing over RLE hip is clean and dry Skin: No rashes, No breakdown Musculoskeletal: No Tenderness to Palpation of Joints or Extremities Lymphatic: No Cervical, Supraclavicular, or Inguinal Adenopathy Neurological: Cranial nerves II-XII grossly intact Psych/Mental Status: Normal Affect, Appropriate, Alert and oriented to time, place, person, mood and affect Vitals/I&O's: Vital Signs Temp Pulse Resp BP Pulse Ox 97.5 F L 86 18 131/58 H 93 02/24/18 08:16 02/24/18 08:16 02/24/18 08:16 02/24/18 08:16 02/24/18 08:16 Oxygen Flow Rate (L/min) 2 Oxygen Delivery Method Room Air Weight: 46 kg Body Mass Index (BMI) 19.8 Intake and Output for Last 24 Hours 02/22/18 02/23/18 02/24/18 23:59 23:59 23:59 Intake Total 5090 / 5090 1841.9 / 1841.9 250 / 250 Output Total 1825 / 1825 1325 / 1325 1250 / 1250 Balance 3265 / 3265 516.9 / 516.9 -1000 / -1000 Microbiology Past 72 Hours 02/22/18 18:44 Stool Stool Occult Blood (PILLO) - Final Laboratory Results 02/23/18 07:05: Magnesium 2.1 02/24/18 05:15: WBC 7.3, RBC 3.29 L, Hgb 10.2 L, Hct 30.0 L, MCV 91.2, MCH 31.0, MCHC 34.0, RDW 15.4 H, RDW Differential 50.6 H, Plt Count 173, MPV 10.7 Current Medications Acetaminophen (Tylenol) 1,000 mg PO Q8 [facility] Last Admin: 02/24/18 06:34 Dose: 1,000 mg Al Hydroxide/Mg Hydroxide (Mylanta Ii) 30 ml PO Q6H PRN PRN PRN Reason: Gastric Burning Alendronate Sodium (Fosamax) 70 mg PO Tu@0700 [facility] Ascorbic Acid (Vitamin C) 500 mg PO DAILY@0800 [facility] Last Admin: 02/24/18 08:18 Dose: 500 mg Atorvastatin Calcium (Lipitor) 20 mg PO QHS [facility] Last Admin: 02/23/18 22:38 Dose: 20 mg Bisacodyl (Dulcolax) 10 mg RECTAL DAILY PRN PRN PRN Reason: Constipation Last Admin: 02/23/18 15:58 Dose: 10 mg Docusate Sodium (Colace) 200 mg PO BID PRN PRN PRN Reason: Constipation Last Admin: 02/23/18 05:56 Dose: 200 mg Enoxaparin Sodium (Lovenox) 30 mg SC DAILY@0600 [facility] Last Admin: 02/24/18 06:35 Dose: 30 mg Ergocalciferol (Vitamin D) 50,000 unit PO MoFr@0800 [facility] Last Admin: 02/22/18 08:40 Dose: 50,000 unit Famotidine (Pepcid) 20 mg PO DAILY [facility] Last Admin: 02/23/18 10:25 Dose: 20 mg Morphine Sulfate () 1 mg IV Q4H PRN PRN PRN Reason: SEVERE PAIN (6-10/10) [facility]it[facility] ([facility]) [facility] Last Admin: 02/24/18 08:18 Dose: 1 tablet Nutritional Formula (Lactose Free) (Ensure Clear) 120 ml PO TIDCM [facility] Last Admin: 02/24/18 08:18 Dose: Not Given Ondansetron HCl (Zofran) 4 mg IV Q8H PRN PRN PRN Reason: Nausea Oxycodone HCl (Oxyir) 5 mg PO Q4H PRN PRN PRN Reason: Moderate Pain (pain scale 4-5) Last Admin: 02/23/18 12:43 Dose: 5 mg Polyethylene Glycol (Miralax) 17 gm PO DAILY [facility] Last Admin: 02/23/18 10:25 Dose: 17 gm Polysaccharide Iron Complex (Ferrex 150) 150 mg PO DAILYCM [facility] Last Admin: 02/24/18 08:18 Dose: 150 mg Senna (Senokot) 2 tablet PO BID [facility] Last Admin: 02/23/18 22:38 Dose: 2 tablet Sodium Chloride () 5 - 30 ml IV UD PRN PRN Reason: SALINE FLUSH Throat Lozenges (Cepacol Sore Throat Lozenge) 1 lozenge MUCOUS MEM Q2H PRN PRN PRN Reason: SORE THROAT Last Admin: 02/23/18 10:25 Dose: 1 lozenge Valsartan (Diovan) 40 mg PO DAILY [facility] Last Admin: 02/23/18 10:25 Dose: 40 mg Zolpidem Tartrate (Ambien (Generic)) 5 mg PO QHS PRN PRN PRN Reason: INSOMNIA Medical Necessity - Tobacco Use Smoking Status: Never smoker Tobacco Use: Non-smoker Assessment/Plan All Active Problems Closed right hip fracture (Acute) 82-year-old female with past medical history of hypertension, hyperlipidemia and osteoporosis admitted on 02/19/2018 after an episode of dizziness and fall. No associated syncope per patient's history. History of syncope in the past. Admitting x-ray shows right femoral neck transection. She had surgery done on 02/21/2018. No acute syncopal episode was seen since admission. Hemoglobin was found to be low yesterday and was transfused 2 packed RBCs. 1. Acute blood loss anemia, likely postop/hemodilution related, status post 2 packed RBC transfusion, repeat hemoglobin today is 10.2. Stool for occult blood is pending, no repeat CBC D in a.m. 2. Constipation, opioid related, resolved, had multiple bowel movements yesterday. 3. Postop day #3 status post right hip arthroplasty, pain appears better controlled, will continue with therapy and pain meds. 4. Syncope, unclear etiology, likely related to anemia, patient's 2D echo showed EF of 60% with normal LV and mild diastolic dysfunction, no regional wall motion abnormalites noted. PA systolic pressue is 34mmHg. Will need cardiology follow-up on discharge 5. Hypertension, blood pressures have been controlled, started back on valsartan 40mg daily, will monitor blood pressure and possibly decrease valsartan if needed. 6. Osteoporosis, on fosamax and vitamin D 7. Hypokalemia, hypomagnesemia, potassium this morning is 3.5, Mg is pending 8. DVT prophylaxis: SCDS, Lovenox 9. Dispostion: Pending insurance precertification for discharge to fourth floor rehab Code Visit Inpatient E&M: 25709 Subs Hosp L2
--- NOTE | 2018-02-24 08:41 | PN_ITS ---
Patient Problems: Active and Suspected Problems Closed right hip fracture (Acute) Subjective: Patient was seen and examined. Feels tired this morning. Had multiple bowel movements yesterday after bowel regimen. Had an episode where she could not urinate after removal of Justice catheter. Was straight cath for large amount of urine. Appeared to be able to void after that. Denies any fever or chills or shortness of breath. Objective: Physical exam: General: Alert, Oriented x3, Cooperative, not pale, not jaundiced HEENT: Atraumatic, PERRLA, EOMI, Normocephalic, Oral: Moist Mucosa Neck: Supple, No JVD, Negative Carotid Bruits, No Nodes Lungs: Diminished air entry at the lung bases, otherwise vesicular breath sounds Cardiovascular: Regular rate, Regular Rhythm, Normal S1, Normal S2, No murmurs Abdomen: Bowel Sounds Present, Soft, Non Tender, Non-Distended, No Hepato- splenomegaly Extremities: No pedal edema, edema of upper extremities - - dressing over RLE hip is clean and dry Skin: No rashes, No breakdown Musculoskeletal: No Tenderness to Palpation of Joints or Extremities Lymphatic: No Cervical, Supraclavicular, or Inguinal Adenopathy Neurological: Cranial nerves II-XII grossly intact Psych/Mental Status: Normal Affect, Appropriate, Alert and oriented to time, place, person, mood and affect Vitals/I&O's: Vital Signs Temp Pulse Resp BP Pulse Ox 97.5 F L 86 18 131/58 H 93 02/24/18 08:16 02/24/18 08:16 02/24/18 08:16 02/24/18 08:16 02/24/18 08:16 Oxygen Flow Rate (L/min) 2 Oxygen Delivery Method Room Air Weight: 46 kg Body Mass Index (BMI) 19.8 Intake and Output for Last 24 Hours 02/22/18 02/23/18 02/24/18 23:59 23:59 23:59 Intake Total 5090 / 5090 1841.9 / 1841.9 250 / 250 Output Total 1825 / 1825 1325 / 1325 1250 / 1250 Balance 3265 / 3265 516.9 / 516.9 -1000 / -1000 Microbiology Past 72 Hours 02/22/18 18:44 Stool Stool Occult Blood (PILLO) - Final Laboratory Results 02/23/18 07:05: Magnesium 2.1 02/24/18 05:15: WBC 7.3, RBC 3.29 L, Hgb 10.2 L, Hct 30.0 L, MCV 91.2, MCH 31.0 , MCHC 34.0, RDW 15.4 H, RDW Differential 50.6 H, Plt Count 173, MPV 10.7 Current Medications Acetaminophen (Tylenol) 1,000 mg PO Q8 [facility] Last Admin: 02/24/18 06:34 Dose: 1,000 mg Al Hydroxide/Mg Hydroxide (Mylanta Ii) 30 ml PO Q6H PRN PRN PRN Reason: Gastric Burning Alendronate Sodium (Fosamax) 70 mg PO Tu@0700 [facility] Ascorbic Acid (Vitamin C) 500 mg PO DAILY@0800 [facility] Last Admin: 02/24/18 08:18 Dose: 500 mg Atorvastatin Calcium (Lipitor) 20 mg PO QHS [facility] Last Admin: 02/23/18 22:38 Dose: 20 mg Bisacodyl (Dulcolax) 10 mg RECTAL DAILY PRN PRN PRN Reason: Constipation Last Admin: 02/23/18 15:58 Dose: 10 mg Docusate Sodium (Colace) 200 mg PO BID PRN PRN PRN Reason: Constipation Last Admin: 02/23/18 05:56 Dose: 200 mg Enoxaparin Sodium (Lovenox) 30 mg SC DAILY@0600 [facility] Last Admin: 02/24/18 06:35 Dose: 30 mg Ergocalciferol (Vitamin D) 50,000 unit PO MoFr@0800 [facility] Last Admin: 02/22/18 08:40 Dose: 50,000 unit Famotidine (Pepcid) 20 mg PO DAILY [facility] Last Admin: 02/23/18 10:25 Dose: 20 mg Morphine Sulfate () 1 mg IV Q4H PRN PRN PRN Reason: SEVERE PAIN (6-10/10) Multivitamins (Multivitamin) [facility] Last Admin: 02/24/18 08:18 Dose: 1 tablet Nutritional Formula (Lactose Free) (Ensure Clear) 120 ml PO TIDCM [facility] Last Admin: 02/24/18 08:18 Dose: Not Given Ondansetron HCl (Zofran) 4 mg IV Q8H PRN PRN PRN Reason: Nausea Oxycodone HCl (Oxyir) 5 mg PO Q4H PRN PRN PRN Reason: Moderate Pain (pain scale 4-5) Last Admin: 02/23/18 12:43 Dose: 5 mg Polyethylene Glycol (Miralax) 17 gm PO DAILY [facility] Last Admin: 02/23/18 10:25 Dose: 17 gm Polysaccharide Iron Complex (Ferrex 150) 150 mg PO DAILYCM [facility] Last Admin: 02/24/18 08:18 Dose: 150 mg Senna (Senokot) 2 tablet PO BID [facility] Last Admin: 02/23/18 22:38 Dose: 2 tablet Sodium Chloride () 5 - 30 ml IV UD PRN PRN Reason: SALINE FLUSH Throat Lozenges (Cepacol Sore Throat Lozenge) 1 lozenge MUCOUS MEM Q2H PRN PRN PRN Reason: SORE THROAT Last Admin: 02/23/18 10:25 Dose: 1 lozenge Valsartan (Diovan) 40 mg PO DAILY [facility] Last Admin: 02/23/18 10:25 Dose: 40 mg Zolpidem Tartrate (Ambien (Generic)) 5 mg PO QHS PRN PRN PRN Reason: INSOMNIA Medical Necessity - Tobacco Use Smoking Status: Never smoker Tobacco Use: Non-smoker Assessment/Plan All Active Problems Closed right hip fracture (Acute) 82-year-old female with past medical history of hypertension, hyperlipidemia and osteoporosis admitted on 02/19/2018 after an episode of dizziness and fall. No associated syncope per patient's history. History of syncope in the past. Admitting x-ray shows right femoral neck transection. She had surgery done on . No acute syncopal episode was seen since admission. Hemoglobin was found to be low yesterday and was transfused 2 packed RBCs. 1. Acute blood loss anemia, likely postop/hemodilution related, status post 2 packed RBC transfusion, repeat hemoglobin today is 10.2. Stool for occult blood is pending, no repeat CBC D in a.m. 2. Constipation, opioid related, resolved, had multiple bowel movements yesterday. 3. Postop day #3 status post right hip arthroplasty, pain appears better controlled, will continue with therapy and pain meds. 4. Syncope, unclear etiology, likely related to anemia, patient's 2D echo showed EF of 60% with normal LV and mild diastolic dysfunction, no regional wall motion abnormalites noted. PA systolic pressue is 34mmHg. Will need cardiology follow-up on discharge 5. Hypertension, blood pressures have been controlled, started back on valsartan 40mg daily, will monitor blood pressure and possibly decrease valsartan if needed. 6. Osteoporosis, on fosamax and vitamin D 7. Hypokalemia, hypomagnesemia, potassium this morning is 3.5, Mg is pending 8. DVT prophylaxis: SCDS, Lovenox 9. Dispostion: Pending insurance precertification for discharge to fourth floor rehab Code Visit Inpatient E&M: 45629 Subs Hosp L2
[2018-02-24] MEDS: Famotidine 20 MG Tablet PO (11:00)
[2018-02-24] MEDS: VALSARTAN 40 MG TABLET PO (11:00)
[2018-02-24] MEDS: Atorvastatin Calcium 20 MG Tablet PO (22:09)
[2018-02-25 02:15] VITALS: BP 124/57; PULSE 93; RESP 18; TEMP 36.4; O2SAT 94
[2018-02-25] MEDS: Acetaminophen 500 MG Tablet 1000 MG PO ×3 (05:10→22:51)
[2018-02-25] MEDS: Enoxaparin 30 MG/0.3 ML Syringe SC (05:11)
--- NOTE | 2018-02-25 08:02 | PCM.PN.HOSP ---
Patient Problems: Active and Suspected Problems Closed right hip fracture (Acute) Subjective: Patient with no acute events overnight per self and per nursing report. Patient hemoglobin and blood pressures have remained stable since PRBC administration following recent operative intervention. She notes therapies are progressing well with planned transition to rehabilitation pending insurance approval. She currently denies any pain. Patient denies fevers, chills, nausea, emesis, abdominal pain, chest pain or dyspnea. Objective: Physical Examination: General: awake, alert, oriented x 3 and cooperative, seated upright in bedside chair, in no apparent distress. Skin: normal color, turgor, no icterus, cyanosis except R Hip dressing in place, s/p R hip intervention s/p hip fracture. HEENT: AT/NC, EOMI, PERRLA, MMM, no carotid bruits or JVD noted. Lungs: CTA bilaterally, moderate effort, mild decrease BL bases, no rales, ronchi or wheezing. Heart: Regular rate and rhythm; no gallop, rub audible. Abdomen: soft, thin habitus, mildly cachectic appearing, NTTP, ND, normal BS. Extremities: no cyanosis, clubbing, see skin. Neurological: patient awake, alert, oriented x 3; cognitive function intact; pupils equally reactive to light and accomodation; cranial nerves II-XII grossly normal, moving all 4 extremities although limited RLE given recent fx and OR, strength accordingly moderately to severely globally decreased. Psychiatric: affect appears normal, no acute evidence of depressive or anxiety feelings. Vitals/I&O's: Vital Signs Temp Pulse Resp BP Pulse Ox 97.6 F L 93 18 124/57 H 94 02/25/18 02:15 02/25/18 02:15 02/25/18 02:15 02/25/18 02:15 02/25/18 02:15 Oxygen Flow Rate (L/min) 2 Oxygen Delivery Method Room Air Weight: 101 lb 6.602 oz Body Mass Index (BMI) 19.8 Intake and Output for Last 24 Hours 02/23/18 02/24/18 02/25/18 23:59 23:59 23:59 Intake Total 1841.9 / 1841.9 1070 / 1070 200 / 200 Output Total 1325 / 1325 1800 / 1800 Balance 516.9 / 516.9 -730 / -730 200 / 200 Microbiology Past 72 Hours 02/22/18 18:44 Stool Stool Occult Blood (PILLO) - Final Current Medications Acetaminophen (Tylenol) 1,000 mg PO Q8 [facility] Last Admin: 02/25/18 05:10 Dose: 1,000 mg Al Hydroxide/Mg Hydroxide (Mylanta Ii) 30 ml PO Q6H PRN PRN PRN Reason: Gastric Burning Alendronate Sodium (Fosamax) 70 mg PO Tu@0700 [facility] Ascorbic Acid (Vitamin C) 500 mg PO DAILY@0800 [facility] Last Admin: 02/24/18 08:18 Dose: 500 mg Atorvastatin Calcium (Lipitor) 20 mg PO QHS [facility] Last Admin: 02/24/18 22:09 Dose: 20 mg Bisacodyl (Dulcolax) 10 mg RECTAL DAILY PRN PRN PRN Reason: Constipation Last Admin: 02/23/18 15:58 Dose: 10 mg Docusate Sodium (Colace) 200 mg PO BID PRN PRN PRN Reason: Constipation Last Admin: 02/23/18 05:56 Dose: 200 mg Enoxaparin Sodium (Lovenox) 30 mg SC DAILY@0600 [facility] Last Admin: 02/25/18 05:11 Dose: 30 mg Ergocalciferol (Vitamin D) 50,000 unit PO MoFr@0800 [facility] Last Admin: 02/22/18 08:40 Dose: 50,000 unit Famotidine (Pepcid) 20 mg PO DAILY [facility] Last Admin: 02/24/18 11:00 Dose: 20 mg Morphine Sulfate () 1 mg IV Q4H PRN PRN PRN Reason: SEVERE PAIN (6-10/10) Multivitamins (Multivitamin) [facility] Last Admin: 02/24/18 08:18 Dose: 1 tablet Nutritional Formula (Lactose Free) (Ensure Enlive) 120 ml PO TIDCM [facility] Ondansetron HCl (Zofran) 4 mg IV Q8H PRN PRN PRN Reason: Nausea Oxycodone HCl (Oxyir) 5 mg PO Q4H PRN PRN PRN Reason: Moderate Pain (pain scale 4-5) Last Admin: 02/23/18 12:43 Dose: 5 mg Polyethylene Glycol (Miralax) 17 gm PO DAILY [facility] Last Admin: 02/24/18 11:00 Dose: Not Given Polysaccharide Iron Complex (Ferrex 150) 150 mg PO DAILYCM [facility] Last Admin: 02/24/18 08:18 Dose: 150 mg Senna (Senokot) 2 tablet PO BID [facility] Last Admin: 02/24/18 22:09 Dose: Not Given Sodium Chloride () 5 - 30 ml IV UD PRN PRN Reason: SALINE FLUSH Throat Lozenges (Cepacol Sore Throat Lozenge) 1 lozenge MUCOUS MEM Q2H PRN PRN PRN Reason: SORE THROAT Last Admin: 02/23/18 10:25 Dose: 1 lozenge Valsartan (Diovan) 40 mg PO DAILY [facility] Last Admin: 02/24/18 11:00 Dose: 40 mg Zolpidem Tartrate (Ambien (Generic)) 5 mg PO QHS PRN PRN PRN Reason: INSOMNIA Medical Necessity - Tobacco Use Smoking Status: Never smoker Tobacco Use: Non-smoker Assessment/Plan All Active Problems Closed right hip fracture (Acute) The patient is an 82 y/o F w/ PMHx: HTN, HLD, Osteoporosis who presents to the [facility] ED on 02/19/18 with history of fall w/ onset dizziness, lightheadedness prior from standing position while pushing neighbor in wheelchair. (1) General debility, R hip pain s/p mechanical fall w/ R Femoral neck fracture: Plain film noting R femoral neck fracture. Orthopedic surgery consulted from ED. Admitted to [place], evaluation per Orthopedic surgery w/ 02/21/18 OR w/ R hip hemiarthroplasty per Dr. Cabezas, 2 u PRBC administered, post-operative constipation w/ bowel regimen ongoing, post-op transient urinary retention with improvement following straight catheterization. Pain, anti-emetic regimen. PT/OT following operative intervention. CM consulted for discharge planning. Awaiting insurance clearance for acute rehabilitation transition. (2) Acute Normocytic Anemia secondary to Operative Blood Loss: Admission Hgb 10.6-->post-operative Hgb 6.6, 2 u PRBC administered, 02/24/18 Hgb 10.2, stable. ECHO w/ normal LV size, LV systolic function normal, EF 60%, transmitral diastolic flow velocities suggestive of mild stage I diastolic dysfunction. No further lightheaded or dizziness. Mag supplemented. Maintain on Fe supplementation. (3) Near Syncopal Event: Unclear etiololgy, EKG without evidence of acute ischemia, CXR w/ no acute cardiopulmonary findings, initial trop normal. From prior planning upon discharge will refer to Cardiology for outpatient evaluation. (4) Electrolyte Disturbances: Hypokalemia (3.4), Hypomagnesium (1.5), supplementation given during admission, corrected. (5) Hypertension: Continue home regimen including Diovan, PRN hydralazine. (6) Hyperlipidemia: Continue home statin regimen. (7) Moderate Calorie-Protein Malnutrition: Evidenced per habitus, continued on ensure, MVI. (8) GI, DVT Prophylaxis: SCDs, lovenox. (9) CODE status: Discussed CODE status at length including difference between FULL code, DNR-CCA and DNR-CC status. Following discussions about the differences in these status, confirmed FULL CODE status. Advanced Care Planning Face to Face Time: 18 minutes. Code Visit Inpatient E&M: 13596 Subs Hosp L2 Procedures: 93833 Advncd Care Plan 30 Min
--- NOTE | 2018-02-25 08:12 | PN_ITS ---
Patient Problems: Active and Suspected Problems Closed right hip fracture (Acute) Subjective: Patient with no acute events overnight per self and per nursing report. Patient hemoglobin and blood pressures have remained stable since PRBC administration following recent operative intervention. She notes therapies are progressing well with planned transition to rehabilitation pending insurance approval. She currently denies any pain. Patient denies fevers, chills, nausea, emesis, abdominal pain, chest pain or dyspnea. Objective: Physical Examination: General: awake, alert, oriented x 3 and cooperative, seated upright in bedside chair, in no apparent distress. Skin: normal color, turgor, no icterus, cyanosis except R Hip dressing in place , s/p R hip intervention s/p hip fracture. HEENT: AT/NC, EOMI, PERRLA, MMM, no carotid bruits or JVD noted. Lungs: CTA bilaterally, moderate effort, mild decrease BL bases, no rales, ronchi or wheezing. Heart: Regular rate and rhythm; no gallop, rub audible. Abdomen: soft, thin habitus, mildly cachectic appearing, NTTP, ND, normal BS. Extremities: no cyanosis, clubbing, see skin. Neurological: patient awake, alert, oriented x 3; cognitive function intact; pupils equally reactive to light and accomodation; cranial nerves II-XII grossly normal, moving all 4 extremities although limited RLE given recent fx and OR, strength accordingly moderately to severely globally decreased. Psychiatric: affect appears normal, no acute evidence of depressive or anxiety feelings. Vitals/I&O's: Vital Signs Temp Pulse Resp BP Pulse Ox 97.6 F L 93 18 124/57 H 94 02/25/18 02:15 02/25/18 02:15 02/25/18 02:15 02/25/18 02:15 02/25/18 02:15 Oxygen Flow Rate (L/min) 2 Oxygen Delivery Method Room Air Weight: 101 lb 6.602 oz Body Mass Index (BMI) 19.8 Intake and Output for Last 24 Hours 02/23/18 02/24/18 02/25/18 23:59 23:59 23:59 Intake Total 1841.9 / 1841.9 1070 / 1070 200 / 200 Output Total 1325 / 1325 1800 / 1800 Balance 516.9 / 516.9 -730 / -730 200 / 200 Microbiology Past 72 Hours 02/22/18 18:44 Stool Stool Occult Blood (PILLO) - Final Current Medications Acetaminophen (Tylenol) 1,000 mg PO Q8 [facility] Last Admin: 02/25/18 05:10 Dose: 1,000 mg Al Hydroxide/Mg Hydroxide (Mylanta Ii) 30 ml PO Q6H PRN PRN PRN Reason: Gastric Burning Alendronate Sodium (Fosamax) 70 mg PO Tu@0700 [facility] Ascorbic Acid (Vitamin C) 500 mg PO DAILY@0800 [facility] Last Admin: 02/24/18 08:18 Dose: 500 mg Atorvastatin Calcium (Lipitor) 20 mg PO QHS [facility] Last Admin: 02/24/18 22:09 Dose: 20 mg Bisacodyl (Dulcolax) 10 mg RECTAL DAILY PRN PRN PRN Reason: Constipation Last Admin: 02/23/18 15:58 Dose: 10 mg Docusate Sodium (Colace) 200 mg PO BID PRN PRN PRN Reason: Constipation Last Admin: 02/23/18 05:56 Dose: 200 mg Enoxaparin Sodium (Lovenox) 30 mg SC DAILY@0600 [facility] Last Admin: 02/25/18 05:11 Dose: 30 mg Ergocalciferol (Vitamin D) 50,000 unit PO MoFr@0800 [facility] Last Admin: 02/22/18 08:40 Dose: 50,000 unit Famotidine (Pepcid) 20 mg PO DAILY [facility] Last Admin: 02/24/18 11:00 Dose: 20 mg Morphine Sulfate () 1 mg IV Q4H PRN PRN PRN Reason: SEVERE PAIN (6-10/10) [facility]it[facility] ([facility]) [facility] Last Admin: 02/24/18 08:18 Dose: 1 tablet Nutritional Formula (Lactose Free) (Ensure Enlive) 120 ml PO TIDCM [facility] Ondansetron HCl (Zofran) 4 mg IV Q8H PRN PRN PRN Reason: Nausea Oxycodone HCl (Oxyir) 5 mg PO Q4H PRN PRN PRN Reason: Moderate Pain (pain scale 4-5) Last Admin: 02/23/18 12:43 Dose: 5 mg Polyethylene Glycol (Miralax) 17 gm PO DAILY [facility] Last Admin: 02/24/18 11:00 Dose: Not Given Polysaccharide Iron Complex (Ferrex 150) 150 mg PO DAILYCM [facility] Last Admin: 02/24/18 08:18 Dose: 150 mg Senna (Senokot) 2 tablet PO BID [facility] Last Admin: 02/24/18 22:09 Dose: Not Given Sodium Chloride () 5 - 30 ml IV UD PRN PRN Reason: SALINE FLUSH Throat Lozenges (Cepacol Sore Throat Lozenge) 1 lozenge MUCOUS MEM Q2H PRN PRN PRN Reason: SORE THROAT Last Admin: 02/23/18 10:25 Dose: 1 lozenge Valsartan (Diovan) 40 mg PO DAILY [facility] Last Admin: 02/24/18 11:00 Dose: 40 mg Zolpidem Tartrate (Ambien (Generic)) 5 mg PO QHS PRN PRN PRN Reason: INSOMNIA Medical Necessity - Tobacco Use Smoking Status: Never smoker Tobacco Use: Non-smoker Assessment/Plan All Active Problems Closed right hip fracture (Acute) The patient is an 82 y/o F w/ PMHx: HTN, HLD, Osteoporosis who presents to the [facility] ED on 02/19/18 with history of fall w/ onset dizziness, lightheadedness prior from standing position while pushing neighbor in wheelchair. (1) General debility, R hip pain s/p mechanical fall w/ R Femoral neck fracture : Plain film noting R femoral neck fracture. Orthopedic surgery consulted from ED. Admitted to [place], evaluation per Orthopedic surgery w/ 02/21/18 OR w/ R hip hemiarthroplasty per Dr. Cabezas, 2 u PRBC administered, post-operative constipation w/ bowel regimen ongoing, post-op transient urinary retention with improvement following straight catheterization. Pain, anti-emetic regimen. PT/ OT following operative intervention. CM consulted for discharge planning. Awaiting insurance clearance for acute rehabilitation transition. (2) Acute Normocytic Anemia secondary to Operative Blood Loss: Admission Hgb 10.6-->post-operative Hgb 6.6, 2 u PRBC administered, 02/24/18 Hgb 10.2, stable. ECHO w/ normal LV size, LV systolic function normal, EF 60%, transmitral diastolic flow velocities suggestive of mild stage I diastolic dysfunction. No further lightheaded or dizziness. Mag supplemented. Maintain on Fe supplementation. (3) Near Syncopal Event: Unclear etiololgy, EKG without evidence of acute ischemia, CXR w/ no acute cardiopulmonary findings, initial trop normal. From prior planning upon discharge will refer to Cardiology for outpatient evaluation. (4) Electrolyte Disturbances: Hypokalemia (3.4), Hypomagnesium (1.5), supplementation given during admission, corrected. (5) Hypertension: Continue home regimen including Diovan, PRN hydralazine. (6) Hyperlipidemia: Continue home statin regimen. (7) Moderate Calorie-Protein Malnutrition: Evidenced per habitus, continued on ensure, MVI. (8) GI, DVT Prophylaxis: SCDs, lovenox. (9) CODE status: Discussed CODE status at length including difference between FULL code, DNR-CCA and DNR-CC status. Following discussions about the differences in these status, confirmed FULL CODE status. Advanced Care Planning Face to Face Time: 18 minutes. Code Visit Inpatient E&M: 87202 Subs Hosp L2 Procedures: 77767 Advncd Care Plan 30 Min
[2018-02-25 08:15] VITALS: BP 139/68; PULSE 87; RESP 18; TEMP 36.7; O2SAT 98
[2018-02-25] MEDS: VALSARTAN 40 MG TABLET PO (09:40)
[2018-02-25] MEDS: Ascorbic Acid 500 MG Tablet PO (09:40)
[2018-02-25] MEDS: Iron Polysaccharide Complex 150 MG CAPSULE PO (09:40)
[2018-02-25] MEDS: Multivitamins,Therapeutic Tablet 1 TABLET PO (09:40)
[2018-02-25] MEDS: Famotidine 20 MG Tablet PO (09:40)
[2018-02-25 14:32] VITALS: BP 129/63; PULSE 82; RESP 16; TEMP 36.6; O2SAT 98
[2018-02-25 15:44] VITALS: O2SAT 94
--- NOTE | 2018-02-25 16:30 | CASEMGMT ---
Social Work Note SW received call from Rebecca with [facility] stating that pt was denied by insurance for [facility]. Rebecca states that pt's insurance company is recommending pt go home with HHC but would approve for pt to go skilled. SW in to update pt of this. Pt states that she wishes to discharge home. SW informed pt that she only walked 5 feet today with PT and PT/OT are recommending further skilled therapy. Pt gave this worker permission to call her daughter Heena to discuss discharge plans. SW placed a call to pt's daughter Heena. SAMIR updated Heena that pt was denied [facility] by insurance and the other options are skilled at SNF or Home with HHC. SW verbally provided Heena with list of in network facilities. Heena states that she would like a referral sent to [facility]. SAMIR faxed referral to [facility]. SAMIR placed a call to Keila at [facility] and left her a message updating her of referral. Plan: Discharge to [facility] pending acceptance and pre-cert Kamilla Chery PERSONNEL DIRECTOR, INDEPENDENT PRODUCER
[2018-02-25 22:50] VITALS: BP 142/63; PULSE 83; RESP 18; TEMP 37.3; O2SAT 96
[2018-02-25] MEDS: Atorvastatin Calcium 20 MG Tablet PO (22:51)
[2018-02-26] MEDS: BENZOCAINE/MENTHOL 1 LOZENGE MUCOUS MEM (00:52)
[2018-02-26 03:28] VITALS: BP 141/78; PULSE 87; RESP 18; TEMP 36.8; O2SAT 96
[2018-02-26 03:29] VITALS: PULSE 87; RESP 18; O2SAT 96
[2018-02-26] MEDS: Acetaminophen 500 MG Tablet 1000 MG PO ×3 (06:20→21:17)
[2018-02-26] MEDS: Enoxaparin 30 MG/0.3 ML Syringe SC (06:20)
[2018-02-26] MEDS: Alendronate Sodium 70 MG Tablet PO (06:21)
[2018-02-26] MEDS: Multivitamins,Therapeutic Tablet 1 TABLET PO (08:02)
[2018-02-26] MEDS: Ascorbic Acid 500 MG Tablet PO (08:02)
[2018-02-26] MEDS: Iron Polysaccharide Complex 150 MG CAPSULE PO (08:02)
--- NOTE | 2018-02-26 08:23 | TREXTCAR_ITS ---
- Diet 02/21/18 16:37 Diet: Regular Diet Food consistency:: Regular Liquid Consistency:: Regular/Thin Is pt able to select menu?: Yes Supplementation: Ensure TID with meals - Routine Orders/Code Status Enema Type: Fleetz Enema Frequency: Daily PRN Suppository Type: Dulcolax 10mg Suppository Frequency: Daily PRN Routine Lab Work: - - Repeat CBC, BMP Code Status: Full Code - Wound(s) right hip Wound Type: Surgical Incision Dressing Change: Dry Sterile Dressing - Suggestions for Active Care Change Position every (hours): 2 Hours to sit in a chair: 6 Times a day to sit in chair: 3 - Therapies Weight Bearing: Weight bearing as tolerated Physical Therapy: Eval and Treat Occupational Therapy: Eval and Treat - Problem/Diagnosis (1) Closed right hip fracture Status: Acute Current Visit: Yes (2) Anemia Status: Acute Current Visit: Yes (3) Near syncope Status: Acute Current Visit: Yes (4) Malnutrition Status: Chronic Current Visit: Yes (5) Osteoporosis Status: Chronic Current Visit: Yes (6) Hypertension Status: Chronic Current Visit: Yes (7) Dyslipidemia Status: Chronic Current Visit: Yes - Allergies/Procedures Done in Hospital Allergies/Adverse Reactions: Allergies No Known Allergies Allergy (Verified 02/19/18 16:10) Procedures: 2-D Echocardiogram, Blood transfusion, EKG, - - 02/21/18 OR w/ R hip hemiarthroplasty per Dr. Cabezas - Type of Care/Length of Stay Estimated LOS: Convalescent Care Less Than 30 days Type of Care Needed: Skilled Rehab Potential: Fair Prognosis: Fair - Additional Orders/Day of Discharge Additional Orders: (1) Fall precautions, aspiration precautions. (2) OOB to chair TID w/ meals and with PT, OT. (3) IS 10x/hr 7a-7p. (4) Incisional care per Orthopedic surgery discretion. (5) Continue post-operative lovenox prophylaxis until evaluation per Orthopedic surgery w/ consideration transition to [facility] only at that time. Hold if any concern for hematoma/bleeding and contact Orthopedic surgery immediately. H&P will serve as current which was dated: 02/19/18 Day of Discharge: 02/26/18 - Dietary and Speech Recommendations Dietitian Recommendations/Changes: Rec continue liberal Regular diet w/ po supplement at [facility] - Follow Up Care Primary Care Physician: Care Physician,No Primary [Primary Care Provider] - Please follow up with your Primary Care Physician in: Follow-up within PCP within 1-2 days prior to SNF discharge planned. Please Follow Up With: Drake Cabezas, When: Follow-up within 1-2 weeks following discharge
[2018-02-26 08:45] LABS: Absolute Lymphocyte Count 0.92 X10^3/ul (0.83-4.51); Basophil# 0.02 X10^3/uL; Basophil% 0.3 % (0-1); Eosinophil# 0.19 X10^3/uL; Eosinophils% 2.8 % (0-5); Hematocrit 31.3 % (37-47); Hemoglobin 10.3 g/dl (12.0-15.0); Lymphocyte # 0.92 X10^3/ul (4.0); Lymphocyte % 13.6 % (19-41); Mean Corp Hgb Conc 32.9 g/gl (32-36); Mean Corpuscular Hgb 30.8 pg (27.0-32.0); Mean Corpuscular Volume 93.7 fL (81-99); Mean Platelet Vol. 9.8 fl (6.2-12.0); Monocyte# 0.66 X10^3/uL; Monocyte% 9.8 % (0-10); Neutrophil # 4.96 X10^3/uL (2.7-7.7); Neutrophil % 73.4 % (47-70); Platelet Count 221 K/mm3 (150-450); RBC Distribution Width CV 14.4 % (11.6-14.6); RBC Distribution Width SD 47.7 fl (35.1-43.9); Red Blood Count 3.34 M/mm3 (4.2-5.4); White Blood Count 6.8 K/mm3 (4.4-11.0)
[2018-02-26 08:48] LABS: POSITIVE COUNT NO; POSITIVE DIFFERENTIAL NO; POSITIVE MORPHOLOGY NO
--- NOTE | 2018-02-26 08:50 | CASEMGMT ---
Social Work Note SW received message from Shantal at [facility] stating that they are able to accept pt and will submit for pre-cert. SAMIR placed a call back to Shantal and got the voicemail for Keila. SW left a message for Shantal/Keila informing them that this worker tried to get pt approved for inpatient rehab but pt was denied by her insurance but they stated that they would approve for skilled. SAMIR received a call from Keila at [facility] stating that she submitted for pre-cert and is waiting to hear from the Nurse at pt's insurance so Shantal can submit clinicals. Shantal states that she will call this worker back when she gets approval from pt's insurance. Plan: [facility] pending pre-cert Kamilla Chery GEEK SQU[employer] AGENT, [employer]
[2018-02-26 08:55] LABS: Anion Gap 7 (5-15); BUN 11 mg/dL (7-18); BUN/Creat Ratio 24.7 RATIO (10-20); Calcium,Total 8.3 mg/dL (8.5-10.1); Chloride 103 mmol/L (98-107); Creatinine, Serum 0.44 mg/dL (0.55-1.02); EST Glomerular Filtration Rate 143 mL/min (>60); Est Glom Filt Rate - Afr Amer 173 mL/min (>60); Estimated Creatinine Clearance 30.62 ml/min; Glucose 100 mg/dL (74-106); Potassium 3.5 mmol/L (3.5-5.1); Sodium Level 140 mmol/L (136-145)
--- NOTE | 2018-02-26 08:56 | PCM.PN.HOSP ---
Patient Problems: Active and Suspected Problems Closed right hip fracture (Acute) Near syncope (Acute) Anemia (Acute) Subjective: Patient with no acute events overnight per self and per nursing report. Patient continues to tolerate therapies and pain controlled with oral regimen. Patient denies any marketed pain without activity but with activity does have onset. Patient remains amenable to senior care facility as declined acute rehab per insurance and awaiting now precertification/authorization and for senior care facility. Patient denies fevers, chills, nausea, emesis, abdominal pain, chest pain or dyspnea. Objective: Physical Examination: General: awake, alert, oriented x 3 and cooperative, seated upright, in no apparent distress. Skin: normal color, turgor, no icterus, cyanosis except R Hip dressing in place, s/p R hip intervention s/p hip fracture. HEENT: AT/NC, EOMI, PERRLA, MMM, no carotid bruits or JVD noted. Lungs: CTA bilaterally, moderate effort, mild decrease BL bases, no rales, ronchi or wheezing. Heart: Regular rate and rhythm; no gallop, rub audible. Abdomen: soft, thin habitus, mildly cachectic appearing, NTTP, ND, normal BS. Extremities: no cyanosis, clubbing, see skin. Neurological: patient awake, alert, oriented x 3; cognitive function intact; pupils equally reactive to light and accomodation; cranial nerves II-XII grossly normal, moving all 4 extremities although limited RLE given recent fx and OR, strength accordingly moderately to globally decreased. Psychiatric: affect appears normal, no acute evidence of depressive or anxiety feelings. Vitals/I&O's: Vital Signs Temp Pulse Resp BP Pulse Ox 98.3 F 87 18 141/78 H 96 02/26/18 03:28 02/26/18 03:29 02/26/18 03:29 02/26/18 03:28 02/26/18 03:29 Oxygen Flow Rate (L/min) 2 Oxygen Delivery Method Room Air Weight: 101 lb 6.602 oz Body Mass Index (BMI) 19.8 Intake and Output for Last 24 Hours 02/24/18 02/25/18 02/26/18 23:59 23:59 23:59 Intake Total 1070 / 1070 1150 / 1150 250 / 250 Output Total 1800 / 1800 400 / 400 1300 / 1300 Balance -730 / -730 750 / 750 -1050 / -1050 Laboratory Results 02/26/18 08:36: WBC 6.8, RBC 3.34 L, Hgb 10.3 L, Hct 31.3 L, MCV 93.7, MCH 30.8, MCHC 32.9, RDW 14.4, RDW Differential 47.7 H, Plt Count 221, MPV 9.8, Immature Gran % (Auto) 0.100, Neut % (Auto) 73.4 H, Lymph % (Auto) 13.6 L, Pike % (Auto) 9.8, Eos % (Auto) 2.8, Baso % (Auto) 0.3, Absolute Neuts (auto) 5.0, Absolute Lymphs (auto) 0.92, Total Counted Not Reportable 02/26/18 08:36: Sodium 140, Potassium 3.5, Chloride 103, Carbon Dioxide 30.0, Anion Gap 7, BUN 11, Creatinine 0.44 L, Estim Creat Clear Calc 30.62, Est GFR (MDRD) Af Amer 173, Est GFR (MDRD) Non-Af 143, BUN/Creatinine Ratio 24.7 H, Glucose 100, Calcium 8.3 L Current Medications Acetaminophen (Tylenol) 1,000 mg PO Q8 [facility] Last Admin: 02/26/18 06:20 Dose: 1,000 mg Al Hydroxide/Mg Hydroxide (Mylanta Ii) 30 ml PO Q6H PRN PRN PRN Reason: Gastric Burning Alendronate Sodium (Fosamax) 70 mg PO Tu@0700 [facility] Last Admin: 02/26/18 06:21 Dose: 70 mg Ascorbic Acid (Vitamin C) 500 mg PO DAILY@0800 [facility] Last Admin: 02/26/18 08:02 Dose: 500 mg Atorvastatin Calcium (Lipitor) 20 mg PO QHS [facility] Last Admin: 02/25/18 22:51 Dose: 20 mg Bisacodyl (Dulcolax) 10 mg RECTAL DAILY PRN PRN PRN Reason: Constipation Last Admin: 02/23/18 15:58 Dose: 10 mg Docusate Sodium (Colace) 200 mg PO BID PRN PRN PRN Reason: Constipation Last Admin: 02/23/18 05:56 Dose: 200 mg Enoxaparin Sodium (Lovenox) 30 mg SC DAILY@0600 [facility] Last Admin: 02/26/18 06:20 Dose: 30 mg Ergocalciferol (Vitamin D) 50,000 unit PO MoFr@0800 [facility] Last Admin: 02/25/18 09:40 Dose: 50,000 unit Famotidine (Pepcid) 20 mg PO DAILY [facility] Last Admin: 02/25/18 09:40 Dose: 20 mg Morphine Sulfate () 1 mg IV Q4H PRN PRN PRN Reason: SEVERE PAIN (6-10/10) Multivitamins ([facility]ivitamin) [facility] Last Admin: 02/26/18 08:02 Dose: 1 tablet Nutritional Formula (Lactose Free) (Ensure Enlive) 120 ml PO TIDCM [facility] Last Admin: 02/26/18 08:02 Dose: 120 ml Ondansetron HCl (Zofran) 4 mg IV Q8H PRN PRN PRN Reason: Nausea Oxycodone HCl (Oxyir) 5 mg PO Q4H PRN PRN PRN Reason: Moderate Pain (pain scale 4-5) Last Admin: 02/23/18 12:43 Dose: 5 mg Polyethylene Glycol (Miralax) 17 gm PO DAILY [facility] Last Admin: 02/25/18 09:41 Dose: Not Given Polysaccharide Iron Complex (Ferrex 150) [facility] Last Admin: 02/26/18 08:02 Dose: 150 mg Senna (Senokot) 2 tablet PO BID [facility] Last Admin: 02/25/18 22:52 Dose: Not Given Sodium Chloride () 5 - 30 ml IV UD PRN PRN Reason: SALINE FLUSH Throat Lozenges (Cepacol Sore Throat Lozenge) 1 lozenge MUCOUS MEM Q2H PRN PRN PRN Reason: SORE THROAT Last Admin: 02/26/18 00:52 Dose: 1 lozenge Valsartan (Diovan) 40 mg PO DAILY [facility] Last Admin: 02/25/18 09:40 Dose: 40 mg Zolpidem Tartrate (Ambien (Generic)) 5 mg PO QHS PRN PRN PRN Reason: INSOMNIA Medical Necessity - Tobacco Use Smoking Status: Never smoker Tobacco Use: Non-smoker Assessment/Plan All Active Problems Closed right hip fracture (Acute) Near syncope (Acute) Anemia (Acute) The patient is an 82 y/o F w/ PMHx: HTN, HLD, Osteoporosis who presents to the [facility] ED on 02/19/18 with history of fall w/ onset dizziness, lightheadedness prior from standing position while pushing neighbor in wheelchair. (1) General debility, R hip pain s/p mechanical fall w/ R Femoral neck fracture: Plain film noting R femoral neck fracture. Orthopedic surgery consulted from ED. Admitted to SD, evaluation per Orthopedic surgery w/ 02/21/18 OR w/ R hip hemiarthroplasty per Dr. Cabezas, 2 u PRBC administered, post-operative constipation w/ bowel regimen ongoing, post-op transient urinary retention with improvement following straight catheterization. Pain, anti-emetic regimen. PT/OT following operative intervention. CM consulted for discharge planning. Patient denied for acute rehab with now pending insurance approval for senior care facility which they had noted they would perform once precertification placed. (2) Acute Normocytic Anemia secondary to Operative Blood Loss: Admission Hgb 10.6-->post-operative Hgb 6.6, 2 u PRBC administered, 02/24/18 Hgb 10.2-->02/25/ Hgb 10.3, stable. ECHO w/ normal LV size, LV systolic function normal, EF 60%, transmitral diastolic flow velocities suggestive of mild stage I diastolic dysfunction. No further lightheaded or dizziness. Mag supplemented. Maintain on Fe supplementation. (3) Near Syncopal Event: Unclear etiololgy, EKG without evidence of acute ischemia, CXR w/ no acute cardiopulmonary findings, initial trop normal. From prior planning upon discharge will refer to Cardiology for outpatient evaluation. (4) Electrolyte Disturbances: Hypokalemia (3.4), Hypomagnesium (1.5), supplementation given during admission, corrected. (5) Hypertension: Continue home regimen including Diovan, PRN hydralazine. (6) Hyperlipidemia: Continue home statin regimen. (7) Moderate Calorie-Protein Malnutrition: Evidenced per habitus, continued on ensure, MVI. (8) GI, DVT Prophylaxis: SCDs, lovenox. (9) CODE status: FULL CODE status. Code Visit Inpatient E&M: 34824 Subs Hosp L2
--- NOTE | 2018-02-26 09:00 | PN_ITS ---
Patient Problems: Active and Suspected Problems Closed right hip fracture (Acute) Near syncope (Acute) Anemia (Acute) Subjective: Patient with no acute events overnight per self and per nursing report. Patient continues to tolerate therapies and pain controlled with oral regimen. Patient denies any marketed pain without activity but with activity does have onset. Patient remains amenable to retirement facility as declined acute rehab per insurance and awaiting now precertification/authorization and for retirement facility. Patient denies fevers, chills, nausea, emesis, abdominal pain, chest pain or dyspnea. Objective: Physical Examination: General: awake, alert, oriented x 3 and cooperative, seated upright, in no apparent distress. Skin: normal color, turgor, no icterus, cyanosis except R Hip dressing in place , s/p R hip intervention s/p hip fracture. HEENT: AT/NC, EOMI, PERRLA, MMM, no carotid bruits or JVD noted. Lungs: CTA bilaterally, moderate effort, mild decrease BL bases, no rales, ronchi or wheezing. Heart: Regular rate and rhythm; no gallop, rub audible. Abdomen: soft, thin habitus, mildly cachectic appearing, NTTP, ND, normal BS. Extremities: no cyanosis, clubbing, see skin. Neurological: patient awake, alert, oriented x 3; cognitive function intact; pupils equally reactive to light and accomodation; cranial nerves II-XII grossly normal, moving all 4 extremities although limited RLE given recent fx and OR, strength accordingly moderately to globally decreased. Psychiatric: affect appears normal, no acute evidence of depressive or anxiety feelings. Vitals/I&O's: Vital Signs Temp Pulse Resp BP Pulse Ox 98.3 F 87 18 141/78 H 96 02/26/18 03:28 02/26/18 03:29 02/26/18 03:29 02/26/18 03:28 02/26/18 03:29 Oxygen Flow Rate (L/min) 2 Oxygen Delivery Method Room Air Weight: 101 lb 6.602 oz Body Mass Index (BMI) 19.8 Intake and Output for Last 24 Hours 02/24/18 02/25/18 02/26/18 23:59 23:59 23:59 Intake Total 1070 / 1070 1150 / 1150 250 / 250 Output Total 1800 / 1800 400 / 400 1300 / 1300 Balance -730 / -730 750 / 750 -1050 / -1050 Laboratory Results 02/26/18 08:36: WBC 6.8, RBC 3.34 L, Hgb 10.3 L, Hct 31.3 L, MCV 93.7, MCH 30.8 , MCHC 32.9, RDW 14.4, RDW Differential 47.7 H, Plt Count 221, MPV 9.8, Immature Gran % (Auto) 0.100, Neut % (Auto) 73.4 H, Lymph % (Auto) 13.6 L, Ponce % (Auto) 9.8, Eos % (Auto) 2.8, Baso % (Auto) 0.3, Absolute Neuts (auto) 5.0, Absolute Lymphs (auto) 0.92, Total Counted Not Reportable 02/26/18 08:36: Sodium 140, Potassium 3.5, Chloride 103, Carbon Dioxide 30.0, Anion Gap 7, BUN 11, Creatinine 0.44 L, Estim Creat Clear Calc 30.62, Est GFR ( MDRD) Af Amer 173, Est GFR (MDRD) Non-Af 143, BUN/Creatinine Ratio 24.7 H, Glucose 100, Calcium 8.3 L Current Medications Acetaminophen (Tylenol) 1,000 mg PO Q8 [facility] Last Admin: 02/26/18 06:20 Dose: 1,000 mg Al Hydroxide/Mg Hydroxide (Mylanta Ii) 30 ml PO Q6H PRN PRN PRN Reason: Gastric Burning Alendronate Sodium (Fosamax) 70 mg PO Tu@0700 [facility] Last Admin: 02/26/18 06:21 Dose: 70 mg Ascorbic Acid (Vitamin C) 500 mg PO DAILY@0800 [facility] Last Admin: 02/26/18 08:02 Dose: 500 mg Atorvastatin Calcium (Lipitor) 20 mg PO QHS [facility] Last Admin: 02/25/18 22:51 Dose: 20 mg Bisacodyl (Dulcolax) 10 mg RECTAL DAILY PRN PRN PRN Reason: Constipation Last Admin: 02/23/18 15:58 Dose: 10 mg Docusate Sodium (Colace) 200 mg PO BID PRN PRN PRN Reason: Constipation Last Admin: 02/23/18 05:56 Dose: 200 mg Enoxaparin Sodium (Lovenox) 30 mg SC DAILY@0600 [facility] Last Admin: 02/26/18 06:20 Dose: 30 mg Ergocalciferol (Vitamin D) 50,000 unit PO MoFr@0800 [facility] Last Admin: 02/25/18 09:40 Dose: 50,000 unit Famotidine (Pepcid) 20 mg PO DAILY [facility] Last Admin: 02/25/18 09:40 Dose: 20 mg Morphine Sulfate () 1 mg IV Q4H PRN PRN PRN Reason: SEVERE PAIN (6-10/10) Multivitamins ([facility]itamin) [facility] Last Admin: 02/26/18 08:02 Dose: 1 tablet Nutritional Formula (Lactose Free) (Ensure Enlive) 120 ml PO TIDCM [facility] Last Admin: 02/26/18 08:02 Dose: 120 ml Ondansetron HCl (Zofran) 4 mg IV Q8H PRN PRN PRN Reason: Nausea Oxycodone HCl (Oxyir) 5 mg PO Q4H PRN PRN PRN Reason: Moderate Pain (pain scale 4-5) Last Admin: 02/23/18 12:43 Dose: 5 mg Polyethylene Glycol (Miralax) 17 gm PO DAILY [facility] Last Admin: 02/25/18 09:41 Dose: Not Given Polysaccharide Iron Complex (Ferrex 150) [facility] Last Admin: 02/26/18 08:02 Dose: 150 mg Senna (Senokot) 2 tablet PO BID [facility] Last Admin: 02/25/18 22:52 Dose: Not Given Sodium Chloride () 5 - 30 ml IV UD PRN PRN Reason: SALINE FLUSH Throat Lozenges (Cepacol Sore Throat Lozenge) 1 lozenge MUCOUS MEM Q2H PRN PRN PRN Reason: SORE THROAT Last Admin: 02/26/18 00:52 Dose: 1 lozenge Valsartan (Diovan) 40 mg PO DAILY [facility] Last Admin: 02/25/18 09:40 Dose: 40 mg Zolpidem Tartrate (Ambien (Generic)) 5 mg PO QHS PRN PRN PRN Reason: INSOMNIA Medical Necessity - Tobacco Use Smoking Status: Never smoker Tobacco Use: Non-smoker Assessment/Plan All Active Problems Closed right hip fracture (Acute) Near syncope (Acute) Anemia (Acute) The patient is an 82 y/o F w/ PMHx: HTN, HLD, Osteoporosis who presents to the [facility] ED on 02/19/18 with history of fall w/ onset dizziness, lightheadedness prior from standing position while pushing neighbor in wheelchair. (1) General debility, R hip pain s/p mechanical fall w/ R Femoral neck fracture : Plain film noting R femoral neck fracture. Orthopedic surgery consulted from ED. Admitted to [place], evaluation per Orthopedic surgery w/ 02/21/18 OR w/ R hip hemiarthroplasty per Dr. Cabezas, 2 u PRBC administered, post-operative constipation w/ bowel regimen ongoing, post-op transient urinary retention with improvement following straight catheterization. Pain, anti-emetic regimen. PT/ OT following operative intervention. CM consulted for discharge planning. Patient denied for acute rehab with now pending insurance approval for retirement facility which they had noted they would perform once precertification placed. (2) Acute Normocytic Anemia secondary to Operative Blood Loss: Admission Hgb 10.6-->post-operative Hgb 6.6, 2 u PRBC administered, 02/24/18 Hgb 10.2-->02/25/ Hgb 10.3, stable. ECHO w/ normal LV size, LV systolic function normal, EF 60%, transmitral diastolic flow velocities suggestive of mild stage I diastolic dysfunction. No further lightheaded or dizziness. Mag supplemented. Maintain on Fe supplementation. (3) Near Syncopal Event: Unclear etiololgy, EKG without evidence of acute ischemia, CXR w/ no acute cardiopulmonary findings, initial trop normal. From prior planning upon discharge will refer to Cardiology for outpatient evaluation. (4) Electrolyte Disturbances: Hypokalemia (3.4), Hypomagnesium (1.5), supplementation given during admission, corrected. (5) Hypertension: Continue home regimen including Diovan, PRN hydralazine. (6) Hyperlipidemia: Continue home statin regimen. (7) Moderate Calorie-Protein Malnutrition: Evidenced per habitus, continued on ensure, MVI. (8) GI, DVT Prophylaxis: SCDs, lovenox. (9) CODE status: FULL CODE status. Code Visit Inpatient E&M: 57563 Subs Hosp L2
--- NOTE | 2018-02-26 09:00 | PCM.DC.SUM ---
Discharge Date and Diagnosis - Problem List Patient Problems: Active and Suspected Problems Closed right hip fracture (Acute) Near syncope (Acute) Anemia (Acute) Date of Admission: 02/19/18 Date of Discharge: 02/26/18 - Primary Discharge Diagnosis Active and Suspected Problems (1) General debility, R hip pain s/p mechanical fall w/ R Femoral neck fracture (2) Acute Normocytic Anemia secondary to Operative Blood Loss (3) Near Syncopal Event, Unclear etiololgy (4) Electrolyte Disturbances, Hypokalemia (3.4), Hypomagnesium (1.5) (5) Hypertension (6) Hyperlipidemia (7) Moderate Calorie-Protein Malnutrition - Secondary Discharge Diagnosis Chronic Problems Osteoporosis (Chronic) Hypertension (Chronic) Dyslipidemia (Chronic) Malnutrition (Chronic) Hospital Course and Treatment Orthopedic surgery Dr. Cabezas Operations: - - 02/21/18 OR w/ R hip hemiarthroplasty per Dr. Cabezas Procedures: 2-D Echocardiogram, Blood transfusion, EKG Summary of Care Provided: The patient is an 82 y/o F w/ PMHx: HTN, HLD, Osteoporosis who presented to the [facility] ED on 02/19/18 with history of fall w/ onset dizziness, lightheadedness prior from standing position while pushing neighbor in wheelchair. Plain film noting R femoral neck fracture. Orthopedic surgery consulted from ED. Admitted to PA, evaluation per Orthopedic surgery w/ 02/21/18 OR w/ R hip hemiarthroplasty per Dr. Cabezas, 2 u PRBC administered, post-operative constipation w/ bowel regimen ongoing, post-op transient urinary retention with improvement following straight catheterization. Pain, anti-emetic regimen. PT/OT following operative intervention. CM consulted for discharge planning w/ initial attempts for Acute rehabilitation; however, patient denied for acute rehab with then SNF discharge. During admission, Hgb 10.6-->post-operative Hgb 6.6, 2 u PRBC administered, 02/24/18 Hgb 10.2-->02/25/ Hgb 10.3, stable. ECHO w/ normal LV size, LV systolic function normal, EF 60%, transmitral diastolic flow velocities suggestive of mild stage I diastolic dysfunction. No further lightheaded or dizziness. Mag supplemented. Maintained on Fe supplementation. As noted upon admission history of near syncopal event w/ unclear etiology w/ EKG without evidence of acute ischemia, CXR w/ no acute cardiopulmonary findings, cardiac enzyme unremarkable with follow-up with Cardiology upon discharge per initial Hospitalist plan. During admission noted electrolyte disturbances w/Hypokalemia (3.4), Hypomagnesium (1.5), supplementation given during admission, corrected. Given presentation w/ noted Moderate Calorie-Protein Malnutrition as evidenced per habitus, continued on ensure, MVI. Patient discharged to SNF in stable condition with as noted requested Cardiology, PCP and Orthopedic surgery follow-up. Home Medications: Medications to take at Discharge Alendronate Sodium [Fosamax] 70 mg PO TU 02/19/18 Atorvastatin Calcium [Lipitor] 20 mg PO QHS 02/19/18 Ergocalciferol [Vitamin D] 50,000 unit PO MOFR 02/19/18 Ranitidine [Zantac] 150 mg PO BID 02/19/18 Valsartan [Diovan] 40 mg PO DAILY 02/19/18 Calcium Carbonate/Vitamin D3 [Calcium 250-Vit D3 125 Tablet] 1 each PO 02/20/18 Multivitamin [Multiple Vitamins] 1 each PO DAILY 02/20/18 Ondansetron [Zofran Odt] 4 mg PO Q8H PRN PRN 02/20/18 Ascorbic Acid [Vitamin C] 500 mg PO DAILY@0800 tablet 02/26/18 Aspirin [Aspirin, Baby] 81 mg PO DAILY@0800 #0 02/26/18 Docusate Sodium [Colace] 200 mg PO BID PRN PRN capsule 02/26/18 Enoxaparin [Lovenox] 30 mg SC DAILY@0600 syringe 02/26/18 Ensure Enlive 120 ml PO TIDCM liquid 02/26/18 Iron Polysaccharide Complex [Ferrex 150] 150 mg PO DAILYCM capsule 02/26/18 Mag Hydrox/Al Hydrox/Simeth [Mylanta II] 30 ml PO Q6H PRN PRN udc 02/26/18 Oxycodone [Oxyir] 5 mg PO Q4H PRN PRN 5 Days #30 tab 02/26/18 Polyethylene Glycol 3350 [Miralax] 17 gm PO DAILY packet 02/26/18 Following Prescrptions Were Given to Patient: Oxycodone [Oxyir] 5 mg PO Q4H PRN PRN 5 Days #30 tab PRN Reason: Moderate Pain (pain scale 4-5) Primary Care Physician: Care Physician,No Primary [Primary Care Provider] - Please follow up with your Primary Care Physician in: Follow-up within PCP within 1-2 days prior to SNF discharge planned. Please Follow Up With: Drake Cabezas DO When: Follow-up within 1-2 weeks following discharge Disposition: Longterm facility Minutes spent on discharge:: 35 Patient Condition:: Fair Medical Necessity - Tobacco Use Smoking Status: Never smoker Tobacco Use: Non-smoker Meaningful Use Info Meaningful Use Diagnoses (Choose all that apply): None applicable Code Visit Inpatient E&M: 28234 Disch Hosp
[2018-02-26 09:20] VITALS: BP 134/58; PULSE 81; RESP 16; TEMP 36.7; O2SAT 96
[2018-02-26] MEDS: Famotidine 20 MG Tablet PO (09:28)
[2018-02-26] MEDS: VALSARTAN 40 MG TABLET PO (09:28)
--- NOTE | 2018-02-26 14:28 | CASEMGMT ---
Social Work Note SAMIR called [facility] and left a message for Henrry in admissions inquiring if they have heard from pt's insurance yet regarding pre-cert. SAMIR once again informed Keila/Shantal that pt's insurance had stated yesterday that they would approve for pt to go to [facility] for rehabilitation at discharge. SAMIR provided MS3 Main number in the event pre-cert is obtained after this worker leaves for the day. Plan: Pt to discharge to [facility] pending pre-cert Kamilla Chery FIRE SAFETY INSPECTOR, [place]
[2018-02-26 15:01] VITALS: BP 131/70; PULSE 87; RESP 16; TEMP 36.9; O2SAT 95
[2018-02-26] MEDS: oxyCODONE 5 MG Tablet PO (15:41)
[2018-02-26 20:13] VITALS: BP 127/64; PULSE 80; RESP 16; TEMP 37; O2SAT 95
[2018-02-26] MEDS: Atorvastatin Calcium 20 MG Tablet PO (21:17)
[2018-02-27 02:33] VITALS: BP 135/68; PULSE 74; RESP 18; TEMP 36.4; O2SAT 98
[2018-02-27] MEDS: Acetaminophen 500 MG Tablet 1000 MG PO ×2 (05:48→14:34)
[2018-02-27] MEDS: Enoxaparin 30 MG/0.3 ML Syringe SC (05:48)
[2018-02-27 06:04] LABS: Absolute Lymphocyte Count 1.26 X10^3/ul (0.83-4.51); Absolute Neutrophil Count 3.3 X10^3/uL (2.0-7.7); Basophil# 0.03 X10^3/uL; Basophil% 0.5 % (0-1); Eosinophil# 0.23 X10^3/uL; Eosinophils% 4.2 % (0-5); Hematocrit 29.3 % (37-47); Hemoglobin 9.6 g/dl (12.0-15.0); Lymphocyte # 1.26 X10^3/ul (4.0); Lymphocyte % 22.9 % (19-41); Mean Corp Hgb Conc 32.8 g/gl (32-36); Mean Corpuscular Hgb 30.3 pg (27.0-32.0); Mean Corpuscular Volume 92.4 fL (81-99); Mean Platelet Vol. 9.6 fl (6.2-12.0); Monocyte# 0.72 X10^3/uL; Monocyte% 13.1 % (0-10); Neutrophil # 3.26 X10^3/uL (2.7-7.7); Neutrophil % 59.1 % (47-70); Platelet Count 229 K/mm3 (150-450); RBC Distribution Width CV 14.5 % (11.6-14.6); RBC Distribution Width SD 49.1 fl (35.1-43.9); Red Blood Count 3.17 M/mm3 (4.2-5.4); White Blood Count 5.5 K/mm3 (4.4-11.0)
[2018-02-27 06:13] LABS: POSITIVE COUNT NO; POSITIVE DIFFERENTIAL NO; POSITIVE MORPHOLOGY NO
[2018-02-27 06:14] LABS: Anion Gap 6 (5-15); BUN 12 mg/dL (7-18); BUN/Creat Ratio 32.2 RATIO (10-20); Chloride 103 mmol/L (98-107); Creatinine, Serum 0.37 mg/dL (0.55-1.02); EST Glomerular Filtration Rate 175 mL/min (>60); Est Glom Filt Rate - Afr Amer 212 mL/min (>60); Estimated Creatinine Clearance 30.62 ml/min; Glucose 85 mg/dL (74-106); Potassium 3.8 mmol/L (3.5-5.1); Sodium Level 139 mmol/L (136-145)
--- NOTE | 2018-02-27 06:33 | PN_ITS ---
Patient Problems: Active and Suspected Problems Closed right hip fracture (Acute) Near syncope (Acute) Anemia (Acute) Subjective: Patient with no acute events overnight per self and per nursing report. Had planned transition to senior care facility day prior secondary to declined acute rehabilitation transition per insurance however precertification for the avenues was not obtained. Expect to be obtained today. Patient notes pain control and tolerating therapies with eagerness for discharge from hospital when appropriate. Patient denies fevers, chills, nausea, emesis, abdominal pain , chest pain or dyspnea. Objective: Physical Examination: General: awake, alert, oriented x 3 and cooperative, seated upright in bed, asking to order breakfast, in no apparent distress. Skin: normal color, turgor, no icterus, cyanosis except R Hip dressing in place , s/p R hip intervention s/p hip fracture. HEENT: AT/NC, EOMI, PERRLA, MMM. Lungs: CTA bilaterally, moderate effort, mild decrease BL bases, no rales, ronchi or wheezing. Heart: Regular rate and rhythm; no gallop, rub audible. Abdomen: soft, thin habitus, mildly cachectic appearing, NTTP, ND, normal BS. Extremities: no cyanosis, clubbing, see skin. Neurological: patient awake, alert, oriented x 3; cognitive function intact; pupils equally reactive to light and accomodation; cranial nerves II-XII grossly normal, moving all 4 extremities although limited RLE given recent fx and OR, strength accordingly moderately to globally decreased. Psychiatric: affect appears normal, no acute evidence of depressive or anxiety feelings. Vitals/I&O's: Vital Signs Temp Pulse Resp BP Pulse Ox 97.6 F L 74 18 135/68 H 98 02/27/18 02:33 02/27/18 02:33 02/27/18 02:33 02/27/18 02:33 02/27/18 02:33 Oxygen Flow Rate (L/min) 2 Oxygen Delivery Method Room Air Weight: 101 lb 6.602 oz Body Mass Index (BMI) 19.8 Intake and Output for Last 24 Hours 02/25/18 02/26/18 02/27/18 23:59 23:59 23:59 Intake Total 1150 / 1150 880 / 880 50 / 50 Output Total 400 / 400 1600 / 1600 500 / 500 Balance 750 / 750 -720 / -720 -450 / -450 Laboratory Results 02/26/18 08:36: WBC 6.8, RBC 3.34 L, Hgb 10.3 L, Hct 31.3 L, MCV 93.7, MCH 30.8 , MCHC 32.9, RDW 14.4, RDW Differential 47.7 H, Plt Count 221, MPV 9.8, Immature Gran % (Auto) 0.100, Neut % (Auto) 73.4 H, Lymph % (Auto) 13.6 L, Pettis % (Auto) 9.8, Eos % (Auto) 2.8, Baso % (Auto) 0.3, Absolute Neuts (auto) 5.0, Absolute Lymphs (auto) 0.92, Total Counted Not Reportable 02/26/18 08:36: Sodium 140, Potassium 3.5, Chloride 103, Carbon Dioxide 30.0, Anion Gap 7, BUN 11, Creatinine 0.44 L, Estim Creat Clear Calc 30.62, Est GFR ( MDRD) Af Amer 173, Est GFR (MDRD) Non-Af 143, BUN/Creatinine Ratio 24.7 H, Glucose 100, Calcium 8.3 L 02/27/18 05:34: WBC 5.5, RBC 3.17 L, Hgb 9.6 L, Hct 29.3 L, MCV 92.4, MCH 30.3, MCHC 32.8, RDW 14.5, RDW Differential 49.1 H, Plt Count 229, MPV 9.6, Immature Gran % (Auto) 0.200, Neut % (Auto) 59.1, Lymph % (Auto) 22.9, Pettis % (Auto) 13.1 H, Eos % (Auto) 4.2, Baso % (Auto) 0.5, Absolute Neuts (auto) 3.3, Absolute Lymphs (auto) 1.26, Total Counted Not Reportable 02/27/18 05:34: Sodium 139, Potassium 3.8, Chloride 103, Carbon Dioxide 30.0, Anion Gap 6, BUN 12, Creatinine 0.37 L, Estim Creat Clear Calc 30.62, Est GFR ( MDRD) Af Amer 212, Est GFR (MDRD) Non-Af 175, BUN/Creatinine Ratio 32.2 H, Glucose 85, Calcium 8.0 L Current Medications Acetaminophen (Tylenol) 1,000 mg PO Q8 [facility] Last Admin: 02/27/18 05:48 Dose: 1,000 mg Al Hydroxide/Mg Hydroxide (Mylanta Ii) 30 ml PO Q6H PRN PRN PRN Reason: Gastric Burning Alendronate Sodium (Fosamax) 70 mg PO Tu@0700 [facility] Last Admin: 02/26/18 06:21 Dose: 70 mg Ascorbic Acid (Vitamin C) 500 mg PO DAILY@0800 [facility] Last Admin: 02/26/18 08:02 Dose: 500 mg Atorvastatin Calcium (Lipitor) 20 mg PO QHS [facility] Last Admin: 02/26/18 21:17 Dose: 20 mg Bisacodyl (Dulcolax) 10 mg RECTAL DAILY PRN PRN PRN Reason: Constipation Last Admin: 02/23/18 15:58 Dose: 10 mg Docusate Sodium (Colace) 200 mg PO BID PRN PRN PRN Reason: Constipation Last Admin: 02/23/18 05:56 Dose: 200 mg Enoxaparin Sodium (Lovenox) 30 mg SC DAILY@0600 [facility] Last Admin: 02/27/18 05:48 Dose: 30 mg Ergocalciferol (Vitamin D) 50,000 unit PO MoFr@0800 [facility] Last Admin: 02/25/18 09:40 Dose: 50,000 unit Famotidine (Pepcid) 20 mg PO DAILY [facility] Last Admin: 02/26/18 09:28 Dose: 20 mg Morphine Sulfate () 1 mg IV Q4H PRN PRN PRN Reason: SEVERE PAIN (6-10/10) [facility]amin) [facility] Last Admin: 02/26/18 08:02 Dose: 1 tablet Nutritional Formula (Lactose Free) (Ensure Enlive) 120 ml PO TIDCM [facility] Last Admin: 02/26/18 16:36 Dose: 120 ml Ondansetron HCl (Zofran) 4 mg IV Q8H PRN PRN PRN Reason: Nausea Oxycodone HCl (Oxyir) 5 mg PO Q4H PRN PRN PRN Reason: Moderate Pain (pain scale 4-5) Last Admin: 02/26/18 15:41 Dose: 5 mg Polyethylene Glycol (Miralax) 17 gm PO DAILY [facility] Last Admin: 02/26/18 09:28 Dose: Not Given Polysaccharide Iron Complex (Ferrex 150) 150 mg PO DAILYCM [facility] Last Admin: 02/26/18 08:02 Dose: 150 mg Senna (Senokot) 2 tablet PO BID [facility] Last Admin: 02/26/18 21:18 Dose: Not Given Sodium Chloride () 5 - 30 ml IV UD PRN PRN Reason: SALINE FLUSH Throat Lozenges (Cepacol Sore Throat Lozenge) 1 lozenge MUCOUS MEM Q2H PRN PRN PRN Reason: SORE THROAT Last Admin: 02/26/18 00:52 Dose: 1 lozenge Valsartan (Diovan) 40 mg PO DAILY [facility] Last Admin: 02/26/18 09:28 Dose: 40 mg Zolpidem Tartrate (Ambien (Generic)) 5 mg PO QHS PRN PRN PRN Reason: INSOMNIA Medical Necessity - Tobacco Use Smoking Status: Never smoker Tobacco Use: Non-smoker Assessment/Plan All Active Problems Closed right hip fracture (Acute) Near syncope (Acute) Anemia (Acute) The patient is an 82 y/o F w/ PMHx: HTN, HLD, Osteoporosis who presents to the [facility] ED on 02/19/18 with history of fall w/ onset dizziness, lightheadedness prior from standing position while pushing neighbor in wheelchair. (1) General debility, R hip pain s/p mechanical fall w/ R Femoral neck fracture : Plain film noting R femoral neck fracture. Orthopedic surgery consulted from ED. Admitted to [facility], evaluation per Orthopedic surgery w/ 02/21/18 OR w/ R hip hemiarthroplasty per Dr. Cabezas, 2 u PRBC administered, post-operative constipation w/ bowel regimen ongoing, post-op transient urinary retention with improvement following straight catheterization. Pain, anti-emetic regimen. PT/ OT following operative intervention. CM consulted for discharge planning. Patient denied for acute rehab with now pending insurance approval for senior care facility, expect ability to transition today, discussed w/ [facility] day prior. (2) Acute Normocytic Anemia secondary to Operative Blood Loss: Admission Hgb 10.6-->post-operative Hgb 6.6, 2 u PRBC administered, 02/26/18 Hgb 10.2--> Hgb 9.6, stable. ECHO w/ normal LV size, LV systolic function normal, EF 60% , transmitral diastolic flow velocities suggestive of mild stage I diastolic dysfunction. No further lightheaded or dizziness. Mag supplemented. Maintain on Fe supplementation. (3) Near Syncopal Event: Unclear etiololgy, EKG without evidence of acute ischemia, CXR w/ no acute cardiopulmonary findings, initial trop normal. From prior planning upon discharge will refer to Cardiology for outpatient evaluation. (4) Electrolyte Disturbances: Hypokalemia (3.4), Hypomagnesium (1.5), supplementation given during admission, corrected. 02/27/18 K 3.8. (5) Hypertension: Continue home regimen including Diovan, PRN hydralazine. (6) Hyperlipidemia: Continue home statin regimen. (7) Moderate Calorie-Protein Malnutrition: Evidenced per habitus, continued on ensure, MVI. (8) GI, DVT Prophylaxis: SCDs, lovenox. (9) CODE status: FULL CODE status. Code Visit Inpatient E&M: 10741 Subs Hosp L2
[2018-02-27 08:30] VITALS: BP 125/64; PULSE 83; RESP 16; TEMP 36.6; O2SAT 97
[2018-02-27] MEDS: Iron Polysaccharide Complex 150 MG CAPSULE PO (08:54)
[2018-02-27] MEDS: Multivitamins,Therapeutic Tablet 1 TABLET PO (08:54)
[2018-02-27] MEDS: Ascorbic Acid 500 MG Tablet PO (08:55)
[2018-02-27] MEDS: VALSARTAN 40 MG TABLET PO (08:55)
[2018-02-27] MEDS: Famotidine 20 MG Tablet PO (08:55)
--- NOTE | 2018-02-27 09:15 | DCINST_ITS ---
Discharge Activity: Return to Normal Activity, May not drive while taking narcotic pain medications., May Shower, Use Walker May shower in (days): 1 Ice area for (Minutes): 20 Weight Bearing Status: Weight bearing as tolerated Call your doctor if your incision/area has: Continuous Slow Oozing, Sudden Increased Bleeding, Increased Pain/ Swelling, Increased Redness, Foul Smelling Discharge Call your doctor if you observe: Fever of 101 or Higher, Coldness, Increased Pain, Numbness or Tingling, Change in Color, Calf discomfort Suture Line Care: Avoid Pulling/Pushing, Avoid Pinching/Bending Change Dressing in (Days):: 2 Remove Dressing in (days):: 2 Cleanse incision/area with: Soap & Water Additional Dressing/Incision Instructions:: Silverlon dressing stays in place for a total of 7 days from date of operation. Patient may shower over top of wound but do not submerge. Allergies/Adverse Reactions: Allergies No Known Allergies Allergy (Verified 02/19/18 16:10) Medications to take at Discharge Alendronate Sodium [Fosamax] 70 mg PO TU 02/19/18 Atorvastatin Calcium [Lipitor] 20 mg PO QHS 02/19/18 Ergocalciferol [Vitamin D] 50,000 unit PO MOFR 02/19/18 Ranitidine [Zantac] 150 mg PO BID 02/19/18 Valsartan [Diovan] 40 mg PO DAILY 02/19/18 Calcium Carbonate/Vitamin D3 [Calcium 250-Vit D3 125 Tablet] 1 each PO 02/20/18 Multivitamin [Multiple Vitamins] 1 each PO DAILY 02/20/18 Ondansetron [Zofran Odt] 4 mg PO Q8H PRN PRN 02/20/18 Ascorbic Acid [Vitamin C] 500 mg PO DAILY@0800 tablet 02/26/18 Aspirin [Aspirin, Baby] 81 mg PO DAILY@0800 #0 02/26/18 Docusate Sodium [Colace] 200 mg PO BID PRN PRN capsule 02/26/18 Enoxaparin [Lovenox] 30 mg SC DAILY@0600 syringe 02/26/18 Ensure Enlive 120 ml PO TIDCM liquid 02/26/18 Iron Polysaccharide Complex [Ferrex 150] 150 mg PO DAILYCM capsule 02/26/18 Mag Hydrox/Al Hydrox/Simeth [Mylanta II] 30 ml PO Q6H PRN PRN udc 02/26/18 Oxycodone [Oxyir] 5 mg PO Q4H PRN PRN 5 Days #30 tab 02/26/18 Polyethylene Glycol 3350 [Miralax] 17 gm PO DAILY packet 02/26/18 The following prescriptions were given: Oxycodone [Oxyir] 5 mg PO Q4H PRN PRN 5 Days #30 tab PRN Reason: Moderate Pain (pain scale 4-5) Primary Care Physician: Care Physician,No Primary [Primary Care Provider] - Please follow up with your Primary Care Physician in: Follow-up within PCP within 1-2 days prior to SNF discharge planned. Test Results: Test results from this visit will be discussed in further detail at your follow- up appointment, if applicable. Please Follow Up With: Drake Cabezas DO When: 1 WEEKS FOR XRAYS AND WOUND CHECK Proposed Discharge Date: 02/27/18
--- NOTE | 2018-02-27 09:15 | CASEMGMT ---
Social Work Note SW faxed updated clinicals to Keila at [facility] [place]. Plan: [facility] [place] pending pre-cert Kamilla Chery COMMUNITY INTEGRATION SPECIALIST, SIGNALS OFFICER
--- NOTE | 2018-02-27 11:58 | CASEMGMT ---
Social Work Note SW placed a call to Keila at [facility] [place] and left her a message to let this worker know as soon as possible once she gets pre-cert as the doctor is ready to discharge pt. Plan: [facility] [place] pending pre-cert Kamilla Chery SHOT POLISHER, VACUUM EXTRACTOR OPERATOR
--- NOTE | 2018-02-27 14:20 | CASEMGMT ---
Social Work Note SW received message from Shantal at [facility] [place] stating that she is able to accept pt without pre-cert as pt has a duel plan of Medicare and Medicaid. SAMIR spoke with JANETH [facility] ED who confirms that [facility] is the only insurance that likes pt to be discharged to SNF and then SNF will provide clinicals. SAMIR faxed completed discharge paperwork including transfer to extended care facility, signed medication list and any scripts. Originals in SNF and copy on pt's chart. SW in to update pt that she is able to discharge today. Pt states that transportation will need to be set up and pt would like to go via wheelchair van. SW placed a call to [place] and they are able to transport pt at 3:30pm. SAMIR updated Campground Attendant Jonatan, Shantal Lindo at [facility], pt and placed a call to pt's daughter Heena and left her a message informing her that pt will be discharged today and transportation is set up for 3:30pm. Transportation form on SNF folder and copy in pt's chart. SW completed [facility] in [facility]. Original in SNF folder and copy on pt's chart. Pt denied additional needs or concerns at this time. Plan: Pt to discharge to [facility] today through [place] [facility] via cot at 3:30pm. Kamilla Chery MSW, LABOR RELATIONS MANAGER
[2018-02-27 14:30] VITALS: BP 127/55; PULSE 91; RESP 16; TEMP 36.6; O2SAT 97
--- NOTE | 2018-02-27 15:02 | CASEMGMT ---
Social Work Note SW received message from Shantal at [facility] [place] stating that she needs script for narcotics. SAMIR placed a call to Dr. Moreno who states that she put script on pt's chart. SAMIR checked pt's chart and no scripts are in chart or in SNF folder. Dr. Moreno signed scripts for narcotics. SAMIR faxed scripts to Shantal at [facility] and placed scripts in SNF folder and copy on pt's chart. Plan: Pt to discharge to [facility] at 3:30pm through [facility] wheelchair Kamilla Chery TEAM SPORTS SALES ASSOCIATE, IMPREGNATION OPERATOR
--- NOTE | 2018-02-27 15:10 | NURSING ---
Report given to Darcie BUCIO at [facility]
== END 2018-02-27 15:45 | disposition skilled nursing facility (03) | DRG 470 ==
LOC: ED 17:27 → MS3 18:36
PROVIDERS: Anesthesiology; Internal Medicine; Orthopaedic Surgery; Student in an Organized Health Care Education/Training Program; Admitting Provider Internal Medicine; Emergency Provider Emergency Medicine; Visit Provider Family Medicine
PROC: (CPT 27125; principal; 2018-02-21 07:10)
DX: S72.031A Displaced midcervical fracture of right femur, initial encounter for closed fracture (principal); E46 Unspecified protein-calorie malnutrition; Z68.1 Body mass index [BMI] 19.9 or less, adult; D62 Acute posthemorrhagic anemia; I47.2 Ventricular tachycardia; I10 Essential (primary) hypertension; W18.30XA Fall on same level, unspecified, initial encounter; Y93.89 Activity, other specified; E78.5 Hyperlipidemia, unspecified; E87.6 Hypokalemia; E83.42 Hypomagnesemia; R55 Syncope and collapse; R53.81 Other malaise; M81.0 Age-related osteoporosis without current pathological fracture; Z79.83 Long term (current) use of bisphosphonates
CPT/HCPCS: 36415; 70450; 71045; 73502; 73560; 80048; 82274; 82962; 83735; 84132; 84484; 85014; 85018; 85025; 85027; 85610; 85730; 86644; 86850; 86900; 86920; 88305; 88311; 92526; 93005; 93306; 97110; 97116; 97162; 97165; 97530; 97535; 99284; C1776; J7030; J7040; P9016; J2405

== ENCOUNTER → 2018-03-07 14:17 | Outpatient (CLI) | payer MEDICARE, SELFPAY ==
--- NOTE | 2018-03-07 14:19 | RAD_ITS ---
STUDY: X-RAY - PELVIS AND RIGHT HIP REASON FOR EXAM: Female, 82 years old. Postop from hip replacement surgery TECHNIQUE: Radiological exam, hip, unilateral, with pelvis when performed; 2 or 3 views. 3 views. COMPARISON: 02/21/2018 FINDINGS: The right hip has been recently replaced. Components again demonstrate anatomic alignment. No plain film evidence of hardware complication or failure. Stable degenerative changes in the SI joints and left hip. No acute fracture or suspicious osseous lesion. RAD/Hip 2-3 Views with Pelvis IMPRESSION: Replaced right hip joint demonstrates anatomic alignment. No plain film evidence of postoperative complication Electronically Signed: Oliver Jimenez MD at 15:24 EDT , Service support ,
== END ==
PROVIDERS: Visit Provider Physician Assistant
DX: S72.001A Fracture of unspecified part of neck of right femur, initial encounter for closed fracture (principal)
CPT/HCPCS: 73502

== ENCOUNTER → 2018-03-10 05:30 | Outpatient (REF) | payer MEDICARE, SELFPAY ==
[2018-03-10 07:14] LABS: ALB/GLOB Ratio 0.7 RATIO (0.9-2.4); AST(SGOT) 31 U/L (15-37); Alanine Aminotransfer ALT/SGPT 54 U/L (13-56); Albumin, Serum 2.5 g/dL (3.2-5.0); Cholesterol 95 mg/dL (200); Globulin 3.8 g/dL (2.2-4.2); High Density Lipoprotein 44 mg/dL; Protein, Total 6.3 g/dL (6.4-8.2); Triglycerides 45 mg/dL; Very Low Density Lipoprotein 9 mg/dL (5-40)
[2018-03-11 05:25] LABS: Absolute Lymphocyte Count 0.86 X10^3/ul (0.83-4.51); Absolute Neutrophil Count 4.2 X10^3/uL (2.0-7.7); Basophil# 0.02 X10^3/uL; Basophil% 0.3 % (0-1); Eosinophil# 0.18 X10^3/uL; Hematocrit 28.1 % (37-47); Hemoglobin 8.8 g/dl (12.0-15.0); Lymphocyte # 0.86 X10^3/ul (4.0); Lymphocyte % 14.3 % (19-41); Mean Corp Hgb Conc 31.3 g/gl (32-36); Mean Corpuscular Hgb 30.6 pg (27.0-32.0); Mean Corpuscular Volume 97.6 fL (81-99); Mean Platelet Vol. 10.3 fl (6.2-12.0); Monocyte# 0.71 X10^3/uL; Monocyte% 11.8 % (0-10); Neutrophil # 4.22 X10^3/uL (2.7-7.7); Neutrophil % 70.4 % (47-70); Platelet Count 562 K/mm3 (150-450); RBC Distribution Width CV 13.4 % (11.6-14.6); RBC Distribution Width SD 45.7 fl (35.1-43.9); Red Blood Count 2.88 M/mm3 (4.2-5.4)
[2018-03-11 06:05] LABS: POSITIVE COUNT NO; POSITIVE DIFFERENTIAL NO; POSITIVE MORPHOLOGY NO
== END ==
LOC: OLS.AVED 05:30
PROVIDERS: Visit Provider Family Medicine
DX: D64.9 Anemia, unspecified (principal); I10 Essential (primary) hypertension; E78.5 Hyperlipidemia, unspecified
CPT/HCPCS: 36415; 80061; 82040; 84156; 84450; 84460; 85025

== ENCOUNTER → 2018-03-25 05:00 | Outpatient (REF) | payer MEDICARE, SELFPAY ==
[2018-03-25 09:49] LABS: Absolute Lymphocyte Count 1.18 X10^3/ul (0.83-4.51); Absolute Neutrophil Count 3.7 X10^3/uL (2.0-7.7); Basophil# 0.01 X10^3/uL; Basophil% 0.2 % (0-1); Eosinophil# 0.12 X10^3/uL; Eosinophils% 2.2 % (0-5); Hematocrit 32.6 % (37-47); Lymphocyte # 1.18 X10^3/ul (4.0); Lymphocyte % 21.3 % (19-41); Mean Corp Hgb Conc 30.7 g/gl (32-36); Mean Corpuscular Hgb 29.9 pg (27.0-32.0); Mean Corpuscular Volume 97.6 fL (81-99); Mean Platelet Vol. 10.5 fl (6.2-12.0); Monocyte# 0.48 X10^3/uL; Monocyte% 8.7 % (0-10); Neutrophil # 3.73 X10^3/uL (2.7-7.7); Neutrophil % 67.4 % (47-70); Platelet Count 297 K/mm3 (150-450); RBC Distribution Width CV 14.9 % (11.6-14.6); RBC Distribution Width SD 50.7 fl (35.1-43.9); Red Blood Count 3.34 M/mm3 (4.2-5.4); White Blood Count 5.5 K/mm3 (4.4-11.0)
[2018-03-25 09:53] LABS: POSITIVE COUNT NO; POSITIVE DIFFERENTIAL NO; POSITIVE MORPHOLOGY NO
[2018-03-25 10:10] LABS: Anion Gap 13 (5-15); BUN 19 mg/dL (7-18); BUN/Creat Ratio 43.5 RATIO (10-20); Calcium,Total 8.7 mg/dL (8.5-10.1); Chloride 103 mmol/L (98-107); Creatinine, Serum 0.44 mg/dL (0.55-1.02); EST Glomerular Filtration Rate 146 mL/min (>60); Est Glom Filt Rate - Afr Amer 177 mL/min (>60); Glucose 90 mg/dL (74-106); Sodium Level 142 mmol/L (136-145)
== END ==
LOC: OLS.AVED 05:00
PROVIDERS: Visit Provider Family Medicine
DX: I10 Essential (primary) hypertension (principal); D64.9 Anemia, unspecified
CPT/HCPCS: 36415; 80048; 85025

== ENCOUNTER → 2018-03-26 10:50 | Outpatient (REF) | payer MEDICARE, SELFPAY ==
[2018-03-26 11:43] LABS: Absolute Lymphocyte Count 1.14 X10^3/ul (0.83-4.51); Absolute Neutrophil Count 3.8 X10^3/uL (2.0-7.7); Basophil# 0.02 X10^3/uL; Basophil% 0.4 % (0-1); Eosinophil# 0.09 X10^3/uL; Eosinophils% 1.6 % (0-5); Hematocrit 31.6 % (37-47); Hemoglobin 9.8 g/dl (12.0-15.0); Lymphocyte # 1.14 X10^3/ul (4.0); Lymphocyte % 20.2 % (19-41); Mean Corpuscular Hgb 29.7 pg (27.0-32.0); Mean Corpuscular Volume 95.8 fL (81-99); Monocyte% 10.6 % (0-10); Neutrophil # 3.79 X10^3/uL (2.7-7.7); Neutrophil % 67.2 % (47-70); Platelet Count 285 K/mm3 (150-450); RBC Distribution Width CV 14.8 % (11.6-14.6); RBC Distribution Width SD 51.4 fl (35.1-43.9); White Blood Count 5.6 K/mm3 (4.4-11.0)
[2018-03-26 11:46] LABS: POSITIVE COUNT NO; POSITIVE DIFFERENTIAL NO; POSITIVE MORPHOLOGY NO
[2018-03-26 11:47] LABS: Anion Gap 5 (5-15); BUN 13 mg/dL (7-18); Calcium,Total 8.7 mg/dL (8.5-10.1); Chloride 103 mmol/L (98-107); Creatinine, Serum 0.54 mg/dL (0.55-1.02); EST Glomerular Filtration Rate 114 mL/min (>60); Est Glom Filt Rate - Afr Amer 138 mL/min (>60); Glucose 100 mg/dL (74-106); Potassium 3.8 mmol/L (3.5-5.1); Sodium Level 138 mmol/L (136-145)
== END ==
LOC: OLS.AVED 10:50
PROVIDERS: Visit Provider Family Medicine
DX: R53.83 Other fatigue (principal)
CPT/HCPCS: 36415; 80048; 85025

== ENCOUNTER 2018-04-09 21:48 | Inpatient (IN) | payer MEDICARE, SELFPAY ==
[2018-04-09 21:49] VITALS: BP 145/71; PULSE 112; RESP 18; TEMP 38.8; O2SAT 91; BMI 18.4
[2018-04-09 22:17] LABS: Absolute Lymphocyte Count 0.92 X10^3/ul (0.83-4.51); Absolute Neutrophil Count 8.6 X10^3/uL (2.0-7.7); Basophil# 0.01 X10^3/uL; Basophil% 0.1 % (0-1); Eosinophil# 0.09 X10^3/uL; Eosinophils% 0.9 % (0-5); Hematocrit 29.4 % (37-47); Hemoglobin 9.2 g/dl (12.0-15.0); Lymphocyte # 0.92 X10^3/ul (4.0); Lymphocyte % 8.7 % (19-41); Mean Corp Hgb Conc 31.3 g/gl (32-36); Mean Corpuscular Hgb 29.2 pg (27.0-32.0); Mean Corpuscular Volume 93.3 fL (81-99); Mean Platelet Vol. 9.3 fl (6.2-12.0); Monocyte# 0.92 X10^3/uL; Monocyte% 8.7 % (0-10); Neutrophil # 8.57 X10^3/uL (2.7-7.7); Neutrophil % 81.4 % (47-70); Platelet Count 338 K/mm3 (150-450); RBC Distribution Width CV 15.6 % (11.6-14.6); RBC Distribution Width SD 53.9 fl (35.1-43.9); Red Blood Count 3.15 M/mm3 (4.2-5.4); White Blood Count 10.5 K/mm3 (4.4-11.0)
[2018-04-09 22:18] LABS: POSITIVE COUNT NO; POSITIVE DIFFERENTIAL NO; POSITIVE MORPHOLOGY NO
[2018-04-09 22:21] LABS: International Normalized Ratio 1.2; Prothrombin Time (Protime)PT. 14.7 SECONDS (11.7-14.9)
[2018-04-09 22:22] LABS: Partial Thromboplast Time 39.4 Seconds (24.1-36.2)
[2018-04-09] MEDS: Acetaminophen 500 MG Tablet 1000 MG PO (22:27)
[2018-04-09] MEDS: 0.9% Normal Saline 1,000 ML 150 ML IV (22:28)
[2018-04-09 22:29] VITALS: TEMP 38.1
[2018-04-09 22:34] LABS: Bacteria 0 SEEN /hpf (None Seen); Mucous, Urine 0 SEEN /hpf (<or=2+)
[2018-04-09 22:35] LABS: Color, Urine Yellow (Yellow); Glucose, Dipstick Normal (Normal); Ketone-Dipstick Negative (Negative); Leukocyte Esterase-Dipstick 25 /ul (Negative); Nitrite-Dipstick Negative (Negative); Occult Blood-Urine 10 /ul (Negative); Protein-Dipstick 15 mg/dl (Negative); Urine Bilirubin Dipstick Negative (Negative); Urine Clarity Sl. Cloudy (Clear); Urine Urobilinogen 1 mg/dl (Normal)
[2018-04-09 22:36] LABS: ALB/GLOB Ratio 0.7 RATIO (0.9-2.4); AST(SGOT) 55 U/L (15-37); Alanine Aminotransfer ALT/SGPT 66 U/L (13-56); Albumin, Serum 2.8 g/dL (3.2-5.0); Alkaline Phosphatase 108 U/L (45-117); Anion Gap 11 (5-15); BUN 20 mg/dL (7-18); BUN/Creat Ratio 42.4 RATIO (10-20); Calcium,Total 8.5 mg/dL (8.5-10.1); Chloride 100 mmol/L (98-107); Creatinine, Serum 0.47 mg/dL (0.55-1.02); EST Glomerular Filtration Rate 134 mL/min (>60); Est Glom Filt Rate - Afr Amer 162 mL/min (>60); Estimated Creatinine Clearance 29.81 ml/min; Globulin 4.1 g/dL (2.2-4.2); Glucose 122 mg/dL (74-106); Potassium 3.8 mmol/L (3.5-5.1); Protein, Total 6.9 g/dL (6.4-8.2); Sodium Level 136 mmol/L (136-145)
[2018-04-09 22:41] VITALS: PULSE 98; RESP 19; TEMP 38.4; O2SAT 98
[2018-04-09 22:55] LABS: Red Blood Cells-Urine 0-5 SEEN /hpf (0-5); Squamous Epithelial Cells - UA 0-5 SEEN /hpf (5-10); White Blood Cells 0-5 SEEN /hpf (0-5)
--- NOTE | 2018-04-09 22:58 | PCM.HP.STD ---
Problem List (1) Pneumonia Status: Acute Qualifiers: Pneumonia type: due to unspecified organism Laterality: bilateral Lung location: lower lobe of lung Qualified Code(s): J18.1 - Lobar pneumonia, unspecified organism (2) Sepsis Status: Acute Qualifiers: Sepsis type: sepsis due to unspecified organism Qualified Code(s): A41.9 - Sepsis, unspecified organism (3) Closed right hip fracture Status: Chronic Qualifiers: Encounter type: subsequent encounter Fracture healing: with routine healing Qualified Code(s): S72.001D - Fracture of unspecified part of neck of right femur, subsequent encounter for closed fracture with routine healing Comment: 02/21/18 OR w/ R hip hemiarthroplasty per Dr. Cabezas (4) Osteoporosis Status: Chronic Qualifiers: Osteoporosis type: unspecified Presence of current pathological fracture: unspecified Qualified Code(s): M81.0 - Age-related osteoporosis without current pathological fracture (5) Dyslipidemia Status: Chronic (6) Malnutrition Status: Chronic Qualifiers: Malnutrition type: protein-calorie malnutrition Protein-calorie malnutrition severity: severe Qualified Code(s): E43 - Unspecified severe protein-calorie malnutrition (7) Anemia Status: Acute Qualifiers: Anemia type: iron deficiency Iron deficiency anemia type: unspecified iron deficiency Qualified Code(s): D50.9 - Iron deficiency anemia, unspecified (8) Premature atrial contractions Status: Chronic (9) Hyperlipidemia Status: Chronic Qualifiers: Hyperlipidemia type: pure hypercholesterolemia Qualified Code(s): E78.00 - Pure hypercholesterolemia, unspecified; E78.0 - Pure hypercholesterolemia (10) Dementia Status: Chronic Qualifiers: Dementia type: unspecified type Dementia behavioral disturbance: without behavioral disturbance Qualified Code(s): F03.90 - Unspecified dementia without behavioral disturbance (11) Aortic valve disorder Status: Chronic (12) HTN (hypertension) Status: Chronic Qualifiers: Hypertension type: essential hypertension Qualified Code(s): I10 - Essential (primary) hypertension History of Present Illness Date of Admission: 04/09/18 Chief Complaint: Weakness, Cough The patient is a 82 y/o F w/ PMHx: HTN, HLD, OA, Moderate-Severe Protein-Calorie Malnutrition, 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 PAF versus Paroxsymal atrial contractions, Dementia unclear type w/ no behavioral disturbance history, GERD who presents to the [facility] ED on 04/09/18 with history of ongoing harsh cough, not markedly productive, increasing weakness, fatigue, malaise since recent SNF discharge on 04/03/18 following rehabilitation for recent acute R hip fracture s/p 02/21/18 OR w/ R hip hemiarthroplasty per Dr. Cabezas. She had no fevers while at home but notable T elevation upon ED presentation. Daughter noted worsened fatigue and generalized weakness the evening prior to ED presentation while giving a sponge bath with patient admitted lightheadedness with increased exertion. In the ED work-up included T101.8, heart rate 112, BP 145/71, respiratory rate 18, initially 91% on room air, CBC with WBC 10.5, hemoglobin 9.2, platelet 338 with left shift, coags with PTT 39.4, CMP with BUN/creatinine 20/0.47, glucose 122, lactic acid 1.0, AST/ALT 55/66, urinalysis with evidence of mild dehydration otherwise no acute findings, chest x-ray with chronic COPD changes and suspected bilateral lower lobe infiltrates. ED patient administered vancomycin, Zosyn, Tylenol, normal saline. Past Medical History Past Medical History (Chronic Problems): Chronic Problems (This Medical Record has been edited. Action required.) Dizziness (Chronic) Closed right hip fracture (Chronic) 02/21/18 OR w/ R hip hemiarthroplasty per Dr. Cabezas Osteoporosis (Chronic) Hypertension (Chronic) Dyslipidemia (Chronic) Malnutrition (Chronic) Premature atrial contractions (Chronic) Hyperlipidemia (Chronic) Paroxysmal atrial fibrillation (Chronic) Dementia (Chronic) Aortic valve disorder (Chronic) HTN (hypertension) (Chronic) Medical History: Medical History (This Medical Record has been edited. Action required.) Dizziness (Chronic) R42 Closed right hip fracture (Acute) S72.001A Osteoporosis (Chronic) M81.0 Hypertension (Chronic) I10 Dyslipidemia (Chronic) E78.5 Near syncope (Acute) R55 Malnutrition (Chronic) E46 Anemia (Acute) D64.9 Premature atrial contractions (Acute) I49.1 Hyperlipidemia (Chronic) E78.5 Paroxysmal atrial fibrillation (Chronic) I48.0 Syncope and collapse (Acute) R55 Near syncope (Acute) Dementia (Chronic) F03.90 Aortic valve disorder (Chronic) I35.9 HTN (hypertension) (Chronic) I10 Premature ventricular contraction I49.3 TIA (transient ischemic attack) G45.9 BPPV (benign paroxysmal positional vertigo) H81.10 History of cerebellar ataxia Z86.69 Allergies No Known Allergies Allergy (Verified 04/09/18 21:49) Home Medications: Ambulatory Orders Medication Instructions Recorded Atorvastatin Calcium [Lipitor] 20 mg PO QHS 05/15/13 Ranitidine [Zantac] 150 mg PO BID 05/15/13 Vit D3/Folic Acid/B2/B6/B12 1 tab PO MO 05/15/13 [Folgard Tablet] Acetaminophen [Tylenol Extra 500 mg PO Q6H PRN PRN 10/11/16 Strength] Aspirin [Aspirin, Baby] 81 mg PO DAILY@0800 10/11/16 Multivitamin [Daily Multiple 1 ea PO DAILY 10/11/16 Vitamin] alendronate 70 mg tablet 70 mg PO QWEEK 02/18/18 calcium citrate 250 mg tablet 250 mg PO BID tab 02/18/18 ergocalciferol (vitamin D2) 50,000 50,000 unit PO MOFR tab 02/18/18 unit tablet Calcium Carbonate/Vitamin D3 1 each PO DAILY 02/20/18 [Calcium 250-Vit D3 125 Tablet] Ascorbic Acid [Vitamin C] 500 mg PO DAILY@0800 tab 02/26/18 Iron Polysaccharide Complex 150 mg PO DAILYCM cap 02/26/18 [Ferrex 150] Oxycodone [Oxyir] 5 mg PO Q4H PRN PRN 5 Days #30 tab 02/26/18 losartan 25 mg tablet 25 mg PO QDAY 03/27/18 Surgical History: Surgical History (This Medical Record has been edited. Action required.) h/o right hip surgery History of cataract surgery Z98.49 Surgical History: - - Cataract surgery, 02/21/18 OR w/ R hip hemiarthroplasty per Dr. Cabezas. 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 Action required.) Sister Diabetes Daughter Atrial fibrillation History Items: Cancer Paternal Family History: Family History (This Medical Record has been edited. Action required.) Sister Diabetes Daughter Atrial fibrillation History Items: Cancer Sibling Family History: Family History (This Medical Record has been edited. Action required.) Sister Diabetes Daughter Atrial fibrillation History Items: No pertinent history Review of Systems Constitutional: Reports: Fever, Malaise, Weakness, Fatigue. Denies: Chills, Weight Change HEENT: Denies: Head Aches, Sinus Congestion, Sinus Drainage Cardiovascular: Denies: Chest Pain, Palpitations Respiratory: Reports: Cough. Denies: Shortness of Breath, Shortness of breath at rest, Shortness of breath upon exertion, Sputum production, Wheezing Gastrointestinal: Denies: Abdominal Pain, Nausea, Vomiting Genitourinary: Denies: Dysuria Musculoskeletal: Reports: Back Pain, Joint stiffness, Joint Tenderness, Leg Pain. Denies: Joint Pain Skin: Reports: Skin Changes. Denies: Rash, Wounds Neurological: Denies: Numbness, Tingling, Focal weakness Psychiatric: Denies: Anxiety, Depression, Homicidal Ideations, Suicidal Ideations Hematologic/ Lymphatic: Reports: Anemia. Denies: Easy Bruising, Easy Bleeding VTE Information - Inpt Only VTE Present on Admission: No VTE Mechan Device Prophylaxis: SCD's VTE Pharm Prophylaxis ordered?: Yes Patient Problems: Active and Suspected Problems (This Medical Record has been edited. Action required.) Pneumonia (Acute) Sepsis (Acute) Subjective: Fatigued appearance, seated upright in the ED bed, NAD. Objective: Physical Examination: General: awake, alert, oriented x 3 and cooperative, seated upright in the ED bed, in no apparent distress. Skin: normal color, turgor, no icterus, cyanosis except R Hip w/ incision C/D/I. HEENT: AT/NC, EOMI, PERRLA, mildly dry MM, no carotid bruit or increased JVD. Lungs: Diminished BS BL, > bases, mildly coarse BL bases, no wheezing, decreased effort. Heart: Regular rate and rhythm; no gallop, rub audible. Abdomen: soft, thin habitus, cachectic appearing, NTTP, ND, normal BS. Extremities: no cyanosis, clubbing, see skin. Neurological: patient awake, alert, oriented x 3; cognitive function intact; pupils equally reactive to light and accomodation; cranial nerves II-XII grossly normal, moving all 4 extremities although limited given recent fx s/p operative intervention, strength accordingly severely globally decreased. Psychiatric: affect appears fatigued, mildly flat, no acute evidence of depressive or anxiety feelings. - Physical Exam Vital Signs Temp Pulse Resp BP Pulse Ox 101.1 F H 98 19 H 145/71 H 98 04/09/18 22:41 04/09/18 22:41 04/09/18 22:41 04/09/18 21:49 04/09/18 22:41 Oxygen Flow Rate (L/min) 2 Oxygen Delivery Method Nasal Cannula Weight: 97 lb 10.636 oz Body Mass Index (BMI) 18.4 Finger Stick Blood Glucose 131 Laboratory Tests Past 24 Hrs 04/09/18 04/09/18 04/09/18 22:04 22:04 22:04 WBC 10.5 RBC 3.15 L Hgb 9.2 L Hct 29.4 L MCV 93.3 MCH 29.2 MCHC 31.3 L RDW 15.6 H RDW Differential 53.9 H Plt Count 338 MPV 9.3 Immature Gran % (Auto) 0.200 Neut % (Auto) 81.4 H Lymph % (Auto) 8.[address] [place] % (Auto) 8.7 Eos % (Auto) 0.9 Baso % (Auto) 0.1 Absolute Neuts (auto) 8.6 H Absolute Lymphs (auto) 0.92 Total Counted Not Reportable PT 14.7 INR 1.2 APTT 39.4 H Sodium 136 Potassium 3.8 Chloride 100 Carbon Dioxide 25.0 Anion Gap 11 BUN 20 H Creatinine 0.47 L Estim Creat Clear Calc 29.81 Est GFR (MDRD) Af Amer 162 Est GFR (MDRD) Non-Af 134 BUN/Creatinine Ratio 42.4 H Glucose 122 H Lactic Acid Calcium 8.5 Total Bilirubin 0.70 AST 55 H ALT 66 H Alkaline Phosphatase 108 Total Protein 6.9 Albumin 2.8 L Globulin 4.1 Albumin/Globulin Ratio 0.7 L Urine Color Urine Clarity Urine pH Ur Specific [place] Urine Protein Urine Glucose (UA) Urine Ketones Urine Occult Blood Urine Nitrite Urine Bilirubin Urine Urobilinogen Ur Leukocyte Esterase Urine RBC Urine WBC Ur Squamous Epith Cells Urine Bacteria Urine Mucus 04/09/18 04/09/18 22:04 22:25 WBC RBC Hgb Hct MCV MCH MCHC RDW RDW Differential Plt Count MPV Immature Gran % (Auto) Neut % (Auto) Lymph % (Auto) [place] % (Auto) Eos % (Auto) Baso % (Auto) Absolute Neuts (auto) Absolute Lymphs (auto) Total Counted PT INR APTT Sodium Potassium Chloride Carbon Dioxide Anion Gap BUN Creatinine Estim Creat Clear Calc Est GFR (MDRD) Af Amer Est GFR (MDRD) Non-Af BUN/Creatinine Ratio Glucose Lactic Acid 1.0 Calcium Total Bilirubin AST ALT Alkaline Phosphatase Total Protein Albumin Globulin Albumin/Globulin Ratio Urine Color Yellow Urine Clarity Sl. Cloudy Urine pH 5.0 Ur Specific [place] 1.020 Urine Protein 15 H Urine Glucose (UA) Normal Urine Ketones Negative Urine Occult Blood 10 H Urine Nitrite Negative Urine Bilirubin Negative Urine Urobilinogen 1 H Ur Leukocyte Esterase 25 H Urine RBC 0-5 SEEN Urine WBC 0-5 SEEN Ur Squamous Epith Cells 0-5 SEEN Urine Bacteria 0 SEEN Urine Mucus 0 SEEN Assessment/Plan All Active Problems (This Medical Record has been edited. 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 PAF versus Paroxsymal atrial contractions, Dementia unclear type w/ no behavioral disturbance history, GERD who presents to the [facility] ED on 04/09/18 with history of ongoing harsh cough, not markedly productive, increasing weakness, fatigue, malaise since recent SNF discharge on 04/03/18 following rehabilitation for recent acute R hip fracture s/p 02/21/18 OR w/ R hip hemiarthroplasty per Dr. Cabezas. She had no fevers while at home but notable T elevation upon ED presentation. (1) Acute Sepsis secondary to HCAP Pneumonia, Possible GN Organism: ED work-up included T101.8, heart rate 112, BP 145/71, respiratory rate 18, initially 91% on room air, CBC with WBC 10.5, hemoglobin 9.2, platelet 338 with left shift, coags with PTT 39.4, CMP with BUN/creatinine 20/0.47, glucose 122, lactic acid 1.0, AST/ALT 55/66, urinalysis with evidence of mild dehydration otherwise no acute findings, chest x-ray with chronic COPD changes and suspected bilateral lower lobe infiltrates. Will admit to [place], maintain on oxygen with wean as tolerated to room air, continue ATC duonebs, PRN albuterol, maintained on IV Zosyn and Vancomycin given recent hospitalization w/ de-escalation as able, HOB, IS parameters w/ pending sputum cultures, respiratory viral panel and urine antigens. Bld cx x 2 obtained in the ED. PT, OT, CM for discharge planning, expect will likely need return to SNF. (2) Chronic Normocytic Anemia: Admission Hgb 9.2, stable compared to recent s/p OR w/ required 2 u PRBC following, repeat CBC in AM. Maintain on Fe supplementation. 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 (4) Hypertension: Continue home regimen including Diovan, PRN hydralazine. (5) Hyperlipidemia: Continue home statin regimen. (6) Recent R Hip Fx: s/p 02/21/18 OR w/ R hip hemiarthroplasty per Dr. Cabezas, maintain on fall precautions, PT, OT, CM for discharge planning, PRN pain regimen. Given this presentation expect likely will need return to SNF. (7) Moderate-Severe Calorie-Protein Malnutrition: Evidenced per habitus, BMP, continued on ensure, MVI, nutrition consulted. (8) PAF versus paroxysmal atrial contractions: EKG SR, unclear history, would not be appropriate anticoagulation patient regardless secondary to recurrent fall history. (9) Dementia, unclear type w/ no behavioral disturbance history: Frequent re-orientation as needed, not on medication regimen. (10) DVT Prophylaxis: SCDs, lovenox. (11) CODE status: Discussed CODE status at length including difference between FULL code, DNR-CCA and DNR-CC status. Following discussions about the differences in these status, confirmed living will and HCPOA (Daughter) in place, requested FULL CODE status. Advanced Care Planning Face to Face Time: 18 minutes. Code Visit Inpatient E&M: 13141 Init Hosp L3 Procedures: 41118 Advncd Care Plan 30 Min
[2018-04-09 23:27] VITALS: BP 129/57; PULSE 92; RESP 18; TEMP 38.3; O2SAT 97
--- NOTE | 2018-04-09 23:31 | ED.DCSUM_ITS ---
- ER Visit Summary Date of Service: 04/09/18 Chief Complaint: Fever and cough History of Present Illness: The patient is a [address] Wright. She is a poor informant. Per EMS she was getting a sponge bath tonight and lost her footing. She did not fall. She was helped to the floor by her daughter. She reports she is lightheaded. She denies any vertigo. On upon their arrival they found the patient had a fever. Patient does admit to a cough. It is difficult to figure out timeframe of the fever or cough. Physical Examination: Vitals: 101.8, 145/71, 98, 19, 90% on 2 L nasal cannula. General: Well-nourished and well-developed. Head: Normocephalic atraumatic. Neck: Supple, no lymphadenopathy. No JVD. Nontender. Cardiovascular: Regular rate and rhythm. 2 out of 6 systolic murmur. Respiratory: No respiratory distress. Rhonchi at the bases bilaterally. Abdominal: Soft, nontender, nondistended, normal bowel sounds. No guarding, rebound, or peritoneal signs. Back: Nontender. Extremities: Nontender, 1+ edema over lower extremity bilaterally. Skin: Normal color, no rash. Neurologic: Alert and oriented ?3. Cranial nerves II through XII are intact. Normal strength and sensation. Psych: Normal affect. Test Results: EKG is sinus at 97 and is unchanged from November. UA is negative. LFTs marked for an albumin of 2.8, ALT of 66, AST 55. Coags are normal. Chem- 7 is more for glucose 122, BUN 20, creatinine 0.47. CBC is marked for an H&H 9.2-9.4, 7 neutrophils 81, lymphs lites of 8. Lactic acid 1.0. Chest x-ray shows increased density lung bases atelectasis or infiltrate. Emergency Department Course and Treatment: Clinically the patient has pneumonia. I believe that these findings in her lung bases are infiltrate. She has been admitted to the hospital in February. Therefore, this is a healthcare acquired pneumonia. She was given Zosyn and vancomycin IV. She was given Tylenol for her fever. Treatment Plan: Patient was discussed with Dr. Moreno. She will be admitted to the hospital for further evaluation and treatment. Disposition: Admitted in serious condition. Impression: 1. Pneumonia, healthcare acquired. 2. Sepsis. This note was generated with [employer] dictation software. It may contain incorrect words, spelling, and punctuation that were not noted in review of the chart prior to signing ED Disposition - Plan for ED Patient: Chief Complaint: Dizziness Referrals: Giuliana Wright MD [Primary Care Provider] -
[2018-04-10] VITALS (12 sets, daily range): BP systolic 105–134; BP diastolic 46–68; PULSE 75–105; RESP 16–21; TEMP 36.4–37.1; O2SAT 94–100; BMI 19.6; BMI 19.7
--- NOTE | 2018-04-10 01:30 | PCM.RX.CS ---
Consult Pharmacy has been consulted to manage selected antiobiotic: Vancomycin Type of Consult: New start Suspected Infection: Sepsis Prior Doses of Antibiotics Received/Current Regimen: Medications Vancomycin HCl 750 mg/ Sodium (Chloride) 265 mls @ 250 mls/hr IV Q24H ALLISON Discontinued Medications Vancomycin HCl 750 mg/ Sodium (Chloride) 265 mls @ 250 mls/hr IV X1 ONE Stop: 04/10/18 00:18 Last Admin: 04/10/18 00:13 Dose: 250 mls/hr Labs: Sodium 136 mmol/L (136-145) 04/09/18 22:04 Potassium 3.8 mmol/L (3.5-5.1) 04/09/18 22:04 Chloride 100 mmol/L (98-107) 04/09/18 22:04 Carbon Dioxide 25.0 mmol/L (21.0-32.0) 04/09/18 22:04 Anion Gap 11 (5-15) 04/09/18 22:04 BUN 20 mg/dL (7-18) H 04/09/18 22:04 Creatinine 0.47 mg/dL (0.55-1.02) L 04/09/18 22:04 Est GFR (MDRD) Af Amer 162 mL/min (>60) 04/09/18 22:04 Est GFR (MDRD) Non-Af 134 mL/min (>60) 04/09/18 22:04 BUN/Creatinine Ratio 42.4 RATIO (10-20) H 04/09/18 22:04 Glucose 122 mg/dL (74-106) H 04/09/18 22:04 Weight used for dosin.2 kg Estimated Creatinine Clearance: 29.8 Goal Trough: 15-20 mcg/mL Pharmacy Plan for Drug Dosing: Pharmacy Service will continue to monitor and adjust dosing as required. Follow-Up Labs: Trough Vancomycin Labs to be done on [date and time ordered]: 04/12/18 @0000
[2018-04-10] MEDS: Ipratropium/Albuterol Sulfate 3 ML AMPUL.NEB INHALATION ×5 (02:43→22:46)
[2018-04-10] MEDS: Piperacil/Tazobactam 3.375 GM/50 ML ML IV ×3 (05:40→21:33)
[2018-04-10] MEDS: Heparin Injection (Vial) 5,000 UNIT/ML VIAL 5000 UNIT SC (05:40)
[2018-04-10] MEDS: 0.9% Normal Saline 1,000 ML 100 ML IV (05:40)
[2018-04-10 06:54] LABS: Absolute Lymphocyte Count 1.18 X10^3/ul (0.83-4.51); Absolute Neutrophil Count 7.6 X10^3/uL (2.0-7.7); Basophil# 0.02 X10^3/uL; Basophil% 0.2 % (0-1); Eosinophil# 0.04 X10^3/uL; Eosinophils% 0.4 % (0-5); Hematocrit 26.9 % (37-47); Hemoglobin 8.3 g/dl (12.0-15.0); Lymphocyte # 1.18 X10^3/ul (4.0); Lymphocyte % 12.3 % (19-41); Mean Corp Hgb Conc 30.9 g/gl (32-36); Mean Corpuscular Hgb 29.1 pg (27.0-32.0); Mean Corpuscular Volume 94.4 fL (81-99); Mean Platelet Vol. 9.5 fl (6.2-12.0); Monocyte% 8.3 % (0-10); Neutrophil # 7.56 X10^3/uL (2.7-7.7); Neutrophil % 78.7 % (47-70); Platelet Count 312 K/mm3 (150-450); RBC Distribution Width CV 15.4 % (11.6-14.6); RBC Distribution Width SD 53.6 fl (35.1-43.9); Red Blood Count 2.85 M/mm3 (4.2-5.4); White Blood Count 9.6 K/mm3 (4.4-11.0)
[2018-04-10 06:57] LABS: POSITIVE COUNT NO; POSITIVE DIFFERENTIAL NO; POSITIVE MORPHOLOGY NO
[2018-04-10 06:58] LABS: Anion Gap 8 (5-15); BUN 12 mg/dL (7-18); BUN/Creat Ratio 33.7 RATIO (10-20); Chloride 110 mmol/L (98-107); Creatinine, Serum 0.36 mg/dL (0.55-1.02); EST Glomerular Filtration Rate 185 mL/min (>60); Est Glom Filt Rate - Afr Amer 224 mL/min (>60); Estimated Creatinine Clearance 29.74 ml/min; Glucose 108 mg/dL (74-106); Potassium 3.7 mmol/L (3.5-5.1); Sodium Level 145 mmol/L (136-145)
--- NOTE | 2018-04-10 09:39 | NURSING ---
speech therapy in working with pt at this time- will return following completion of assessment
--- NOTE | 2018-04-10 09:46 | CASEMGMT ---
LW/POA forms in e-chart
--- NOTE | 2018-04-10 10:32 | CASEMGMT ---
Addendum entered by Sindy Tomlinson 04/10/18 11:30: Pt's daughter called [facility] and stated she would be here shortly, then came in to the hospital. SW met w/daughter in the waiting room. Daughter states pt has been home from [facility] for about one week, and things were going well until yesterday. She states she was helping pt and pt became weight. She called the neighbors and they were not able to help her w/pt so she called the squad. Daughter states she has learned that pt has pamonia. Prior to this daughter states pt had been managing well at home. Daughter does help pt w/most ADL's however, cooking, cleaning, meds, transportation, getting up, bathing, dressing. Daughter confirmed pt has home PT/OT w/[facility] but pt has not wanted to do the PT at home. She states pt has a bedside commode, shower chair and a wheelchair. They are having a ramp installed. SW inquired about pt leaving [facility]. Daughter states they spoke to her about pt staying there and that all but $50 of her Social Security would be taken. Daughter states she would not be able to pay the rent if this happened. Daughter states she quit her job and now she cannot go back. SW spoke w/daughter about plan after this discharge. Daughter would like to take pt home if possible. She states pt has a daughter in [place], so it is just her and pt here in [place]. Daughter also talked about getting pt to outpt PT, states she has transportation for this if needed. SW asked pt about getting extra services in the home through [employer] and [employer]. Daughter states that she looked into this but they could not find anyone available to help. Daughter is okay w/this SW calling [employer] to check on this. Daughter also agreeable to take a list of nursing homes that take pt's insurance if skilled care was needed again, but daughter prefers to take pt home. SW spoke w/Keila from [facility]. 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 She states that they did call [facility] when pt left [facility]. Pt participated in therapy at [facility] as per Keila, but insurance cut pt and pt's liability there would have started right away. SW called [facility], they have no record of pt applying for services. SW called [facility], message left for Steffany. SW spoke w/the comfort station supervisor here, there are concerns that pt may not be getting appropriate nutrition at home. SW spoke w/daughter again in the room. SW gave her a list of SNF's should it be needed, and inquired about completing the one page application to have pt assessed for services at home. Daughter is in agreement w/having this assessment. SW faxed the one page application to [facility]. Once SW hears back from [facility], SW will likely be calling [facility]. EDNA Lieberman, UPTWISTER TENDER Original Note: SW met w/pt in room in regard to discharge plan. Pt confirms lives w/her daughter and that her daughter helps w/cooking and cleaning. Pt states she has not been home yet from [facility](it appears pt went from here to [facility], then home w/home health), she states she has just been here in the hospital. SW explained will be following for discharge needs, to see if pt can go home w/home health or if she may need to go to [facility] or a senior living. SW called [facility], message left inquiring when pt went home. Pt is also on the list that she is active w/[facility]. SW called daughter, message left to call this SW back. [facility] will continue to follow. It is anticipated pt will need at least continued home health, may need SNF placement again. SW will continue follow. EDNA Lieberman, UPTWISTER TENDER
[2018-04-10] MEDS: Ascorbic Acid 500 MG Tablet PO (10:33)
[2018-04-10] MEDS: Famotidine 20 MG Tablet PO ×2 (10:33→21:33)
[2018-04-10] MEDS: Aspirin 81 MG TAB.CHEW PO (10:33)
[2018-04-10] MEDS: Calcium Carbonate 500 MG Tablet PO ×2 (10:33→21:32)
[2018-04-10] MEDS: Losartan Potassium 25 MG Tablet PO (10:33)
[2018-04-10] MEDS: Multivitamins,Therapeutic Tablet 1 TABLET PO (10:33)
[2018-04-10] MEDS: guaiFENesin 1,200 MG Tablet 1200 MG PO ×2 (10:33→21:32)
[2018-04-10] MEDS: Iron Polysaccharide Complex 150 MG CAPSULE PO (10:33)
[2018-04-10] MEDS: Enoxaparin 40 MG/0.4 ML Syringe SC (10:33)
[2018-04-10] MEDS: Polyethylene Glycol 3350 17 GM PACKET PO (10:33)
--- NOTE | 2018-04-10 11:50 | CASEMGMT ---
Addendum entered by Sindy Tomlinson 04/10/18 12:46: Rebecca from [facility] called this SW back, SW let her know concerns regarding pt. Rebecca asked for SW to call her when pt is discharged and she will plan to see pt at the home. EDNA Lieberman, SMALLTALK DEVELOPER Original Note: SW spoke w/Steffany from [facility], PT and OT have been out once, they do have an order for SW but SW has not yet been out, and this needs added back to the order at discharge. If needed, ST, RN, and aide services can be added to SW and the resumption of PT/OT order when pt is ready for discharge if pt does not go to SNF. SW called [facility], message for Rebecca Malone. SW will continue to follow. EDNA Lieberman, SMALLTALK DEVELOPER
--- NOTE | 2018-04-10 14:09 | PCM.PN.HOSP ---
Patient Problems: Active and Suspected Problems (This Medical Record has been edited. Action required.) Pneumonia (Acute) Sepsis (Acute) Subjective: f/u for presumed sepsis ands pneumonia, perhaps HCAP Patient seen and examined No new problems States that cough and SOB is better Daughter in the room. Does not want patient returning to SNF No fever or chills Vitals/I&O's: Vital Signs Temp Pulse Resp BP Pulse Ox 98 F 94 18 134/68 H 97 04/10/18 13:45 04/10/18 13:45 04/10/18 13:45 04/10/18 13:45 04/10/18 13:45 Oxygen Flow Rate (L/min) 2 Oxygen Delivery Method Room Air Weight: 44.2 kg Body Mass Index (BMI) 19.6 Intake and Output for Last 24 Hours 04/08/18 04/09/18 04/10/18 23:59 23:59 23:59 Intake Total 1385 / 1385 Output Total 1100 / 1100 Balance 285 / 285 General: Alert, Oriented x3, Cooperative, No apparent distress - elderly HEENT: Normocephalic Neck: Supple Lungs: Clear to auscultation, Normal air movement, No rhonchi, No wheeze, No rales Cardiovascular: Regular rate, Regular Rhythm, Normal S1, Normal S2, No murmurs Extremities: No edema Musculoskeletal: Muscle Wasting Psych/Mental Status: Normal Affect Microbiology Past 72 Hours 04/10/18 02:45 Mucosa - Nasopharyngeal Respiratory Panel (PCR) - Final Laboratory Results 04/10/18 06:04: WBC 9.6, RBC 2.85 L, Hgb 8.3 L, Hct 26.9 L, MCV 94.4, MCH 29.1, MCHC 30.9 L, RDW 15.4 H, RDW Differential 53.6 H, Plt Count 312, MPV 9.5, Immature Gran % (Auto) 0.100, Neut % (Auto) 78.7 H, Lymph % (Auto) 12.3 L, [place] % (Auto) 8.3, Eos % (Auto) 0.4, Baso % (Auto) 0.2, Absolute Neuts (auto) 7.6, Absolute Lymphs (auto) 1.18, Total Counted Not Reportable 04/10/18 06:04: Sodium 145, Potassium 3.7, Chloride 110 H, Carbon Dioxide 27.0, Anion Gap 8, BUN 12, Creatinine 0.36 L, Estim Creat Clear Calc 29.74, Est GFR (MDRD) Af Amer 224, Est GFR (MDRD) Non-Af 185, BUN/Creatinine Ratio 33.7 H, Glucose 108 H, Calcium 8.0 L Current Medications Acetaminophen (Tylenol) 650 mg PO Q4H PRN PRN PRN Reason: FEVER Acetaminophen (Tylenol) 650 mg PO Q6H PRN PRN PRN Reason: Mild Pain (scale 0-3)/T>100.7 Al Hydroxide/Mg Hydroxide (Mylanta Ii) 30 ml PO Q6H PRN PRN PRN Reason: Gastric Burning Albuterol Sulfate (Ventolin Aerosols) 2.5 mg INHALATION Q2H PRN PRN PRN Reason: SHORTNESS OF BREATH Albuterol/Ipratropium (Duoneb) 3 ml INHALATION Q4H.RT [facility] Last Admin: 04/10/18 11:23 Dose: Not Given Ascorbic Acid (Vitamin C) 500 mg PO DAILY@0800 [facility] Last Admin: 04/10/18 10:33 Dose: 500 mg Aspirin (Aspirin, Baby) 81 mg PO DAILY@0800 [facility] Last Admin: 04/10/18 10:33 Dose: 81 mg Atorvastatin Calcium (Lipitor) 20 mg PO QHS [facility] Calcium Carbonate (Tums) 500 mg PO BID [facility] Last Admin: 04/10/18 10:33 Dose: 500 mg Docusate Sodium (Colace) 200 mg PO BID PRN PRN PRN Reason: Constipation Enoxaparin Sodium (Lovenox) 40 mg SC DAILY [facility] Last Admin: 04/10/18 10:33 Dose: 40 mg Ergocalciferol (Vitamin D) 50,000 unit PO MOFR [facility] Famotidine (Pepcid) 20 mg PO BID [facility] Last Admin: 04/10/18 10:33 Dose: 20 mg Guaifenesin (Mucinex) 1,200 mg PO BID [facility] Last Admin: 04/10/18 10:33 Dose: 1,200 mg Piperacillin Sod/Tazobactam Sod (Zosyn) 3.375 gm in 50 mls @ 12.5 mls/hr IV Q8 [facility] Last Admin: 04/10/18 13:50 Dose: 12.5 mls/hr Sodium Chloride () 250 mls @ 15 mls/hr IV .[id number] PRN PRN Reason: SALINE FLUSH Levofloxacin (Levaquin Iv) 250 mg in 50 mls @ 50 mls/hr IV Q24 [facility] Losartan Potassium (Cozaar) 25 mg PO DAILY [facility] Last Admin: 04/10/18 10:33 Dose: 25 mg Magnesium Hydroxide (Milk Of Magnesia) 30 ml PO DAILY PRN PRN PRN Reason: Constipation [facility] Admin: 04/10/18 10:33 Dose: 1 tablet Nutritional Formula (Lactose Free) (Ensure Enlive) 120 ml PO TIDCM [facility] Last Admin: 04/10/18 12:46 Dose: 120 ml Ondansetron HCl (Zofran) 4 mg IV Q8H PRN PRN PRN Reason: NAUSEA Oxycodone HCl (Oxyir) 5 mg PO Q4H PRN PRN PRN Reason: Moderate Pain (pain scale 4-5) Polyethylene Glycol (Miralax) 17 gm PO DAILY [facility] Last Admin: 04/10/18 10:33 Dose: 17 gm Polysaccharide Iron Complex (Ferrex 150) [facility] Admin: 04/10/18 10:33 Dose: 150 mg Promethazine HCl (Phenergan) 12.5 mg IV Q6H PRN PRN PRN Reason: NAUSEA/VOMITING Sodium Chloride () 5 - 30 ml IV UD PRN PRN Reason: SALINE FLUSH Medical Necessity - Tobacco Use Smoking Status: Never smoker Tobacco Use: Non-smoker Assessment/Plan All Active Problems (This Medical Record has been edited. Action required.) Pneumonia (Acute) Sepsis (Acute) Near syncope (Acute) Anemia (Acute) Syncope and collapse (Acute) Near syncope (Acute) (1) Presumed pneumonia. Clinic[facility] appears more like an acute bronchitis. Initially viral and now bacterial. Continue breathing tx and IV abx (2) Chronic Normocytic Anemia: Admission Hgb 9.2, Maintain on Fe supplementation. 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 (4) Hypertension: Continue home regimen including Diovan, PRN hydralazine. (5) Hyperlipidemia: Continue home statin regimen. (6) Recent R Hip Fx: s/p 02/21/18 OR w/ R hip hemiarthroplasty per Dr. Cabezas, maintain on fall precautions, PT, OT, CM for discharge planning, PRN pain regimen. Will need osteoporosis screening as outpatient on discharge (7) Moderate-Severe Calorie-Protein Malnutrition: Evidenced per habitus, BMP, continued on ensure, MVI, nutrition consulted. (8) PAF versus paroxysmal atrial contractions: EKG SR, unclear history, would not be appropriate anticoagulation patient regardless secondary to recurrent fall history. (9) Dementia, unclear type w/ no behavioral disturbance. Likely mild. Delirium precautions
--- NOTE | 2018-04-10 16:25 | CPS ---
Patient only took 3 minutes of aerosol, stated she was scared of the mask.
[2018-04-10] MEDS: Atorvastatin Calcium 20 MG Tablet PO (21:32)
[2018-04-10] MEDS: Acetaminophen 325 MG Tablet 650 MG PO ×2 (21:44→22:40)
[2018-04-10] MEDS: oxyCODONE 5 MG Tablet PO (23:25)
[2018-04-11 04:25] VITALS: BP 106/55; PULSE 84; RESP 16; TEMP 36.9; O2SAT 97
[2018-04-11] MEDS: Piperacil/Tazobactam 3.375 GM/50 ML ML IV (05:32)
[2018-04-11 07:24] VITALS: PULSE 86; RESP 18; O2SAT 93
[2018-04-11] MEDS: Ipratropium/Albuterol Sulfate 3 ML AMPUL.NEB INHALATION (07:24)
[2018-04-11] MEDS: Aspirin 81 MG TAB.CHEW PO (08:49)
[2018-04-11] MEDS: Iron Polysaccharide Complex 150 MG CAPSULE PO (08:49)
[2018-04-11] MEDS: Multivitamins,Therapeutic Tablet 1 TABLET PO (08:49)
[2018-04-11] MEDS: Ascorbic Acid 500 MG Tablet PO (08:49)
[2018-04-11 08:54] VITALS: BP 136/99; PULSE 90; RESP 16; TEMP 36.8; O2SAT 98
--- NOTE | 2018-04-11 10:10 | PCM.DC ---
- Discharge Diagnoses Current Active Problems: Current Active and Chronic Problems (This Medical Record has been edited. Action required.) Acute viral and bacterial bronchitis (acute) Sepsis (Acute) You will use the following diet at home:: No restrictions Discharge Activity: Return to Normal Activity Allergies/Adverse Reactions: Allergies No Known Allergies Allergy (Verified 04/09/18 21:49) Medications to take at Discharge Atorvastatin Calcium [Lipitor] 20 mg PO QHS 05/15/13 Ranitidine [Zantac] 150 mg PO BID 05/15/13 Vit D3/Folic Acid/B2/B6/B12 [Folgard Tablet] 1 tab PO MO 05/15/13 Acetaminophen [Tylenol Extra Strength] 500 mg PO Q6H PRN PRN 10/11/16 Aspirin [Aspirin, Baby] 81 mg PO DAILY@0800 10/11/16 Multivitamin [Daily Multiple Vitamin] 1 ea PO DAILY 10/11/16 alendronate 70 mg tablet 70 mg PO QWEEK 02/18/18 ergocalciferol (vitamin D2) 50,000 unit tablet 50,000 unit PO MOFR tab 02/18/18 Calcium Carbonate/Vitamin D3 [Calcium 250-Vit D3 125 Tablet] 1 each PO DAILY 02/20/18 Ascorbic Acid [Vitamin C] 500 mg PO DAILY@0800 tab 02/26/18 Iron Polysaccharide Complex [Ferrex 150] 150 mg PO DAILYCM cap 02/26/18 Oxycodone [Oxyir] 5 mg PO Q4H PRN PRN 5 Days #30 tab 02/26/18 losartan 25 mg tablet 25 mg PO QDAY 03/27/18 Dextromethorphan Polistirex [12-Hour Cough Relief] 60 mg PO BID 10 Days #200 mls 04/11/18 levoFLOXacin tablet [Levaquin tablet] 250 mg PO DAILY 3 Days #3 tab 04/11/18 The following prescriptions were given: levoFLOXacin tablet [Levaquin tablet] 250 mg PO DAILY 3 Days #3 tab Dextromethorphan Polistirex [12-Hour Cough Relief] 60 mg PO BID 10 Days #200 mls Please follow up with your Primary Care Physician in: 1-2 weeks Test Results: Test results from this visit will be discussed in further detail at your follow-up appointment, if applicable.
--- NOTE | 2018-04-11 10:17 | DCINST_ITS ---
- Discharge Diagnoses Current Active Problems: Current Active and Chronic Problems (This Medical Record has been edited. Action required.) Acute viral and bacterial bronchitis (acute) Sepsis (Acute) You will use the following diet at home:: No restrictions Discharge Activity: Return to Normal Activity Allergies/Adverse Reactions: Allergies No Known Allergies Allergy (Verified 04/09/18 21:49) Medications to take at Discharge Atorvastatin Calcium [Lipitor] 20 mg PO QHS 05/15/13 Ranitidine [Zantac] 150 mg PO BID 05/15/13 Vit D3/Folic Acid/B2/B6/B12 [Folgard Tablet] 1 tab PO MO 05/15/13 Acetaminophen [Tylenol Extra Strength] 500 mg PO Q6H PRN PRN 10/11/16 Aspirin [Aspirin, Baby] 81 mg PO DAILY@0800 10/11/16 Multivitamin [Daily Multiple Vitamin] 1 ea PO DAILY 10/11/16 alendronate 70 mg tablet 70 mg PO QWEEK 02/18/18 ergocalciferol (vitamin D2) 50,000 unit tablet 50,000 unit PO MOFR tab Calcium Carbonate/Vitamin D3 [Calcium 250-Vit D3 125 Tablet] 1 each PO DAILY 06/30 Ascorbic Acid [Vitamin C] 500 mg PO DAILY@0800 tab 02/26/18 Iron Polysaccharide Complex [Ferrex 150] 150 mg PO DAILYCM cap 02/26/18 Oxycodone [Oxyir] 5 mg PO Q4H PRN PRN 5 Days #30 tab 02/26/18 losartan 25 mg tablet 25 mg PO QDAY 03/27/18 Dextromethorphan Polistirex [12-Hour Cough Relief] 60 mg PO BID 10 Days #200 mls 04/11/18 levoFLOXacin tablet [Levaquin tablet] 250 mg PO DAILY 3 Days #3 tab 04/11/18 The following prescriptions were given: levoFLOXacin tablet [Levaquin tablet] 250 mg PO DAILY 3 Days #3 tab Dextromethorphan Polistirex [12-Hour Cough Relief] 60 mg PO BID 10 Days #200 mls Please follow up with your Primary Care Physician in: 1-2 weeks Test Results: Test results from this visit will be discussed in further detail at your follow- up appointment, if applicable.
--- NOTE | 2018-04-11 10:18 | CASEMGMT ---
Addendum entered by Sindy Tomlinson 04/11/18 12:29: Daughter called back. SW let her know pt is discharged and let her know RN wants to go over the discharge instructions w/her. Daughter states she needs a wheelchair van ride home for pt, she can call but they need a 24 hour notice. SW explained will call [facility] or [facility] to see if they have availability to take pt home today, daughter okay with this. SW did ask daughter about Meals on Wheels referral, daughter declined, states that she can cook for pt. SW let her know that SW did add services to home care including aide services, and also put pt on the list to be assessed for additional services in the home. Daughter thanked SAMIR for this. SW set up a 4pm ambulette w/[facility]. SW let daughter know. She is going to come in to review the discharge instructions and bring wheelchair for pt. No further needs are anticipated. EDNA Lieberman, DECATOR OPERATOR Original Note: Addendum entered by Sindy Tomlinson 04/11/18 12:15: SW left message for daughter letting her know pt is discharged. EDNA Lieberman, DECATOR OPERATOR Original Note: Addendum entered by Sindy Tomlinson 04/11/18 10:46: SW called Steffany at [facility], let her know pt is going home today and the order for home health was placed. Kathleen from [facility] did call this SW back and let her know pt has been placed on the list to be assessed for waiver services, and this will take 1-2 weeks, and after that she will be referred to [facility]. No further needs, pt home today. EDNA Lieberman, DECATOR OPERATOR Original Note: As per physician, pt is ready for discharge today. SW called [facility], message left for Rebecca Malone letting her know pt is going home today. SW also received a message from Kamilla Harding at [facility], stating SW is to call [facility] directly for a waiver referral([phone]). SW called, this was not the correct number for this pt, transferred to [phone]. SW was directed to pt's dependency case manager Lulu Lake: [phone]. SW called Lulu, pt's dependency case manager is actually Kathleen Paredes ([phone]). SAMIR called Kathleen, message left asking for pt to be assessed for the waiver program. SW will call home care and enter order for home care once the discharge instructions are written. EDNA Lieberman, DECATOR OPERATOR
--- NOTE | 2018-04-11 10:27 | PCM.DC.SUM ---
Discharge Date and Diagnosis - Problem List Patient Problems: Active and Suspected Problems (This Medical Record has been edited. Action required.) Pneumonia (Acute) Sepsis (Acute) Acute bronchitis (Acute) Date of Admission: 04/09/18 Date of Discharge: 04/11/18 - Primary Discharge Diagnosis Active and Suspected Problems (This Medical Record has been edited. Action required.) Acute bronchitis Pneumonia (Acute) Sepsis (Acute) - Secondary Discharge Diagnosis Chronic Problems (This Medical Record has been edited. Action required.) Dizziness (Chronic) Closed right hip fracture (Chronic) 02/21/18 OR w/ R hip hemiarthroplasty per Dr. Cabezas Osteoporosis (Chronic) Hypertension (Chronic) Dyslipidemia (Chronic) Malnutrition (Chronic) Premature atrial contractions (Chronic) Hyperlipidemia (Chronic) Paroxysmal atrial fibrillation (Chronic) Dementia (Chronic) Aortic valve disorder (Chronic) HTN (hypertension) (Chronic) Hospital Course and Treatment Operations: None, - Procedures: None Summary of Care Provided: The patient is a 82 year old F admitted on account of cough and low grade fever and feeling unwell with only minor breathing difficulties. On exam was mild wheezing and a few transmitted sounds CXR showed no acute abnormalities. Patient initially diagnosed with pneumonia and started on antibiotics and breathing treatments. On further evaluation determined that this was more of an acute bronchitis. Initially viral and then some bacterial superinfection Doing better today and is stable for discharge Will complete 3 more days of oral antibiotics and other supportive treatments[] Discharge Diet: No Restrictions Discharge Activity: Return to Normal Activity Home Medications: Medications to take at Discharge Atorvastatin Calcium [Lipitor] 20 mg PO QHS 05/15/13 Ranitidine [Zantac] 150 mg PO BID 05/15/13 Vit D3/Folic Acid/B2/B6/B12 [Folgard Tablet] 1 tab PO MO 05/15/13 Acetaminophen [Tylenol Extra Strength] 500 mg PO Q6H PRN PRN 10/11/16 Aspirin [Aspirin, Baby] 81 mg PO DAILY@0800 10/11/16 Multivitamin [Daily Multiple Vitamin] 1 ea PO DAILY 10/11/16 alendronate 70 mg tablet 70 mg PO QWEEK 02/18/18 ergocalciferol (vitamin D2) 50,000 unit tablet 50,000 unit PO MOFR tab 02/18/18 Calcium Carbonate/Vitamin D3 [Calcium 250-Vit D3 125 Tablet] 1 each PO DAILY 07/11/18 Ascorbic Acid [Vitamin C] 500 mg PO DAILY@0800 tab 02/26/18 Iron Polysaccharide Complex [Ferrex 150] 150 mg PO DAILYCM cap 02/26/18 Oxycodone [Oxyir] 5 mg PO Q4H PRN PRN 5 Days #30 tab 02/26/18 losartan 25 mg tablet 25 mg PO QDAY 03/27/18 Dextromethorphan Polistirex [12-Hour Cough Relief] 60 mg PO BID 10 Days #200 mls 04/11/18 levoFLOXacin tablet [Levaquin tablet] 250 mg PO DAILY 3 Days #3 tab 04/11/18 Following Prescrptions Were Given to Patient: levoFLOXacin tablet [Levaquin tablet] 250 mg PO DAILY 3 Days #3 tab Dextromethorphan Polistirex [12-Hour Cough Relief] 60 mg PO BID 10 Days #200 mls Primary Care Physician: Giuliana Wright MD [Primary Care Provider] - Please follow up with your Primary Care Physician in: 1-2 weeks Medical Necessity - Tobacco Use Smoking Status: Never smoker Tobacco Use: Non-smoker Meaningful Use Info Meaningful Use Diagnoses (Choose all that apply): None applicable Code Visit Inpatient E&M: 31413 Disch Hosp
[2018-04-11] MEDS: levoFLOXacin IV 250 MG/50 ML BAG 50 MG IV (10:31)
[2018-04-11] MEDS: Polyethylene Glycol 3350 17 GM PACKET PO (10:35)
[2018-04-11] MEDS: Calcium Carbonate 500 MG Tablet PO (10:36)
[2018-04-11] MEDS: Enoxaparin 40 MG/0.4 ML Syringe SC (10:36)
[2018-04-11] MEDS: guaiFENesin 1,200 MG Tablet 1200 MG PO (10:36)
[2018-04-11] MEDS: Famotidine 20 MG Tablet PO (10:36)
[2018-04-11] MEDS: Losartan Potassium 25 MG Tablet PO (10:36)
[2018-04-11 15:16] VITALS: BP 164/56; PULSE 87; RESP 18; TEMP 37; O2SAT 95
--- NOTE | 2018-04-12 12:10 | CASEMGMT ---
RN CM DC Phone Call. Message left with pt's home phone# with return call information if questions arise re: prescriptions, DC instructions or follow-up. Luke CRAWLEYN RN ACM
--- NOTE | 2018-04-18 09:28 | CASEMGMT ---
Kathleen([phone]) called from [facility], she just got another email regarding pt and the need to be assessed for waiver. Kathleen left this SW a message stating pt is on the list to be assessed. SW called Kathleen back, explained it is unclear why she is getting another email regarding pt, explained that this SW had called multiple numbers at [facility] before getting to her, so perhaps the email came from another [facility] employee responding to my initial request. Kathleen did confirm that the email was from someone at [facility]. Kathleen explained that they will assess patient just as soon as they can. No further needs anticipated. EDNA Lieberman, RUNNER OUT
== END 2018-04-11 16:20 | disposition home health service (06) | DRG 202 ==
LOC: ED 22:15 → MS2 23:31
PROVIDERS: Admitting Provider Family Medicine; Emergency Provider Emergency Medicine; Family Provider Internal Medicine; PCP Internal Medicine; Visit Provider Internal Medicine
DX: J20.8 Acute bronchitis due to other specified organisms (principal); Z68.1 Body mass index [BMI] 19.9 or less, adult; E44.0 Moderate protein-calorie malnutrition; D64.9 Anemia, unspecified; I10 Essential (primary) hypertension; E78.5 Hyperlipidemia, unspecified; Z96.641 Presence of right artificial hip joint; F03.90 Unspecified dementia, unspecified severity, without behavioral disturbance, psychotic disturbance, mood disturbance, and anxiety
CPT/HCPCS: 36415; 71045; 80048; 80053; 81001; 83605; 83735; 85025; 85610; 85730; 87040; 87086; 87449; 87633; 92507; 93005; 94640; 94667; 94668; 97162; 97166; 97530; 97802; 99284; J7030; J7050; A4216

== ENCOUNTER 2018-04-16 15:10 | Emergency (ER) | payer MEDICARE, SELFPAY ==
[2018-04-16 15:12] VITALS: BP 115/61; PULSE 105; RESP 16; TEMP 36.1; O2SAT 92; BMI 18.3
--- NOTE | 2018-04-16 15:32 | ED.RN ---
INITIAL BLOOD CULTURES AND LACTIC DRAWN WITH IV START.
[2018-04-16 15:40] LABS: Hematocrit 32.4 % (37-47); Hemoglobin 10.1 g/dl (12.0-15.0); Mean Corp Hgb Conc 31.2 g/gl (32-36); Mean Corpuscular Hgb 29.8 pg (27.0-32.0); Mean Corpuscular Volume 95.6 fL (81-99); Mean Platelet Vol. 9.6 fl (6.2-12.0); Platelet Count 425 K/mm3 (150-450); RBC Distribution Width CV 15.3 % (11.6-14.6); Red Blood Count 3.39 M/mm3 (4.2-5.4); White Blood Count 7.3 K/mm3 (4.4-11.0)
[2018-04-16 15:41] LABS: Scan Indicated on CBC? Y/N NO
[2018-04-16 16:08] LABS: Anion Gap 9 (5-15); BUN 19 mg/dL (7-18); BUN/Creat Ratio 34.9 RATIO (10-20); Calcium,Total 8.8 mg/dL (8.5-10.1); Chloride 100 mmol/L (98-107); Creatinine, Serum 0.54 mg/dL (0.55-1.02); EST Glomerular Filtration Rate 113 mL/min (>60); Est Glom Filt Rate - Afr Amer 137 mL/min (>60); Estimated Creatinine Clearance 29.61 ml/min; Glucose 99 mg/dL (74-106); Potassium 3.9 mmol/L (3.5-5.1); Sodium Level 135 mmol/L (136-145)
[2018-04-16] MEDS: Ipratropium/Albuterol Sulfate 3 ML AMPUL.NEB INHALATION (17:38)
[2018-04-16 17:40] VITALS: PULSE 89; RESP 18
--- NOTE | 2018-04-16 18:02 | ED.VISSUMM ---
- ER Visit Summary Date of Service: 04/16/18 Chief Complaint: Shortness of breath History of Present Illness: The patient is a 82 F who was recently admitted for pneumonia April 09 through the . Home nurse today noted her pulse ox ranging between 88 and 89% on room air. She went to urgent care. Aerosol was given but no improvement was noted in her oxygen saturation. Patient still has moist cough. She has not had fever or chills. Physical Examination: Blood pressure is 115/61, temperature 96.9, heart rate 105, respiratory rate 16, pulse ox 92% on room air in triage. Patient sitting upright in bed. She is in no acute distress and speaking full sentences. Heart is regular rate and rhythm. Lung sounds are slightly diminished at the bases. Abdomen is soft nontender. Test Results: Two-view chest x-ray revealed hyperinflation. There is atelectasis and/or infiltrates the bilateral bases, worse on right. When I compared this to her most recent x-ray. There is significant improvement. CBC was normal white count with hemoglobin 10.1. Chemistry studies normal. Emergency Department Course and Treatment: When I entered the room I placed the patient on pulse ox. Her initial sat was 93%. While we talk she dropped her oxygen level to 87% on room air. She is placed on 2 L nasal cannula and sats are in the upper 90s. Social work was able to arrange for outpatient oxygen to be delivered here and then taken to her home. I did speak with Dr. Cedeno, on-call for the patient's primary care physician. Treatment Plan: [] Disposition: Discharge Impression: Mild hypoxia This note was generated with [employer] dictation software. It may contain incorrect words, spelling, and punctuation that were not noted in review of the chart prior to signing ED Disposition - Plan for ED Patient: Chief Complaint: Shortness of Breath Referrals: Giuliana Wright MD [Primary Care Provider] -
--- NOTE | 2018-04-16 18:05 | ED.DEP ---
ED Disposition - Plan for ED Patient: Disposition: Home or Assisted Living Chief Complaint: Shortness of Breath Instructions: Using Oxygen at Home Referrals: Giuliana Wright MD [Primary Care Provider] - 1 Week
[2018-04-16 18:08] VITALS: RESP 20; O2SAT 95
--- NOTE | 2018-04-16 18:10 | CM.ED ---
Social Work Note Referral from Dr. Robbins for O2 needs. Placed call to Park at [facility] who states to contact 800 number. Placed call to RN CM, Navarro Hicks, to verify that SW could get oxygen for pt this date. Spoke with pt and pt's daughter who are in agreement and understand it will be approximately one hour before delivery. Physician notified and will contact PCP. Pt to see PCP, Dr. Wright, on 04/25. Contacted [facility] [[phone]] and they will send out a portable tank and route driver coin machines to ED that will follow the pt home for setup. Face sheet, quick script and CMN form faxed to [facility] at [phone]. Portable tank to be delivered in 1 hour. Plan: [facility] 2L O2 [facility]. Chloe France, RE RECORDING MIXER, CLEANER AND DYER
[2018-04-16 18:13] VITALS: O2SAT 97
[2018-04-16 18:59] VITALS: BP 142/82; PULSE 87; RESP 16; O2SAT 98
[2018-04-16 19:12] VITALS: BP 142/82; PULSE 87; RESP 16; O2SAT 98
--- NOTE | 2018-04-17 09:42 | CM.ED ---
Face to face ED report from 04/16 faxed to [facility].
== END 2018-04-16 19:13 | disposition home or self-care (01) ==
PROVIDERS: Emergency Provider Emergency Medicine; Family Provider Internal Medicine; PCP Internal Medicine
DX: R09.02 Hypoxemia (principal); F03.90 Unspecified dementia, unspecified severity, without behavioral disturbance, psychotic disturbance, mood disturbance, and anxiety; I10 Essential (primary) hypertension; E78.00 Pure hypercholesterolemia, unspecified; I48.0 Paroxysmal atrial fibrillation
CPT/HCPCS: 71046; 80048; 85027; 94640; 94760; 99283; A4216

== ENCOUNTER 2018-04-21 06:22 | Emergency (ER) | payer MEDICARE, SELFPAY ==
[2018-04-21] VITALS (7 sets, daily range): BP systolic 130–137; BP diastolic 60–67; PULSE 84–92; RESP 15–23; TEMP 36.5; O2SAT 93–100; BMI 18.1
--- NOTE | 2018-04-21 07:08 | EKG12_ITS ---
Test Reason : DIZZINESS/FALL Blood Pressure : / mmHG Vent. Rate : 084 BPM Atrial Rate : 084 BPM P-R Int : 120 ms QRS Dur : 072 ms QT Int : 388 ms P-R-T Axes : 023 051 062 degrees QTc Int : 458 ms Normal sinus rhythm Normal ECG Confirmed by ADAMARIS MENDOZA, EVER ([id number]), editor index SANTIAGO CUTLER ([id number]) on 04/23/2018 1:25:29 PM Referred By: Yoav Harp Confirmed By:EVER BAILON MD
[2018-04-21 07:24] LABS: International Normalized Ratio 1.1; Prothrombin Time (Protime)PT. 14.5 SECONDS (11.7-14.9)
[2018-04-21 07:27] LABS: Absolute Lymphocyte Count 0.97 X10^3/ul (0.83-4.51); Absolute Neutrophil Count 6.1 X10^3/uL (2.0-7.7); Basophil# 0.03 X10^3/uL; Basophil% 0.4 % (0-1); Eosinophil# 0.19 X10^3/uL; Eosinophils% 2.3 % (0-5); Hematocrit 31.4 % (37-47); Hemoglobin 9.7 g/dl (12.0-15.0); Lymphocyte # 0.97 X10^3/ul (4.0); Lymphocyte % 11.9 % (19-41); Mean Corp Hgb Conc 30.9 g/gl (32-36); Mean Corpuscular Hgb 29.6 pg (27.0-32.0); Mean Corpuscular Volume 95.7 fL (81-99); Mean Platelet Vol. 10.3 fl (6.2-12.0); Monocyte# 0.81 X10^3/uL; Neutrophil # 6.11 X10^3/uL (2.7-7.7); Neutrophil % 75.3 % (47-70); POSITIVE COUNT NO; POSITIVE DIFFERENTIAL NO; POSITIVE MORPHOLOGY NO; Platelet Count 404 K/mm3 (150-450); RBC Distribution Width CV 15.2 % (11.6-14.6); RBC Distribution Width SD 51.3 fl (35.1-43.9); Red Blood Count 3.28 M/mm3 (4.2-5.4); White Blood Count 8.1 K/mm3 (4.4-11.0)
[2018-04-21 07:51] LABS: ALB/GLOB Ratio 0.8 RATIO (0.9-2.4); AST(SGOT) 25 U/L (15-37); Alanine Aminotransfer ALT/SGPT 32 U/L (13-56); Albumin, Serum 2.9 g/dL (3.2-5.0); Alkaline Phosphatase 102 U/L (45-117); Anion Gap 8 (5-15); BUN 18 mg/dL (7-18); BUN/Creat Ratio 43.6 RATIO (10-20); Calcium,Total 8.6 mg/dL (8.5-10.1); Chloride 102 mmol/L (98-107); Creatinine, Serum 0.41 mg/dL (0.55-1.02); EST Glomerular Filtration Rate 156 mL/min (>60); Est Glom Filt Rate - Afr Amer 189 mL/min (>60); Estimated Creatinine Clearance 27.47 ml/min; Globulin 3.8 g/dL (2.2-4.2); Glucose 100 mg/dL (74-106); Potassium 3.7 mmol/L (3.5-5.1); Protein, Total 6.7 g/dL (6.4-8.2); Sodium Level 139 mmol/L (136-145)
[2018-04-21 10:32] LABS: Bacteria 0 SEEN /hpf (None Seen); Mucous, Urine 0 SEEN /hpf (<or=2+); Red Blood Cells-Urine 0 SEEN /hpf (0-5); Squamous Epithelial Cells - UA 0 SEEN /hpf (5-10)
[2018-04-21 10:42] LABS: Color, Urine Yellow (Yellow); Glucose, Dipstick Normal (Normal); Ketone-Dipstick Negative (Negative); Leukocyte Esterase-Dipstick 25 /ul (Negative); Nitrite-Dipstick Negative (Negative); Occult Blood-Urine Negative /ul (Negative); Protein-Dipstick 15 mg/dl (Negative); Specific Gravity, Urine 1.015 (1.002-1.030); Urine Bilirubin Dipstick Negative (Negative); Urine Clarity Clear (Clear); Urine Urobilinogen 1 mg/dl (Normal); Urine pH 6.5 (5.0 - 8.0)
[2018-04-21 10:58] LABS: White Blood Cells 0-5 SEEN /hpf (0-5)
--- NOTE | 2018-04-21 11:29 | ED.VISSUMM ---
- ER Visit Summary Date of Service: 04/21/18 Chief Complaint: Dizziness History of Present Illness: The patient is a 82 F with dizziness this morning. She woke up at home. She felt dizzy like she was going to pass out. She sat down onto her couch. She had some mid back pain. She did not lose consciousness or have any seizure activity. She has a history of collapse and syncope. She is currently seeing a credit and collections representative and has been wearing a cardiac care nurse. It is unsure why she has these episodes. Physical Examination: Afebrile and vital signs unremarkable. Patient is in no acute distress. Head and neck atraumatic and nontender. Heart regular. Lungs clear. Abdomen soft. Diffuse lower thoracic and upper lumbar tenderness to palpation, overlying skin appears normal. Cranial nerves grossly intact. No focal weakness or numbness. Test Results: EKG showed sinus rhythm at a rate of 84. No sign of acute ischemia or infarction pattern. Hemoglobin 9.7, stable. CMP, coags, troponin all unremarkable. Chest x-ray showed bibasilar pulmonary nodules right side worse than left. Thoracic and lumbar spine x-rays unremarkable. CT brain showed a left caudate nucleus subtle hemorrhage versus artifact. Radiology recommends a repeat CT in 24 hours. Emergency Department Course and Treatment: Patient seen on arrival to the ED. No sign of stroke. Patient was monitored. Workup was all fairly unremarkable and stable. The patient has recently been treated for pneumonia. She is not having respiratory symptoms. CT had showed a possible hemorrhage versus artifact. Repeat CT was advised. Neurosurgery is not available at this facility. At the patient and family's request, I did call [facility] and the patient will be observed there. Patient also discussed with Dr. Lama. His office will follow up with interrogation of her heart monitor. Treatment Plan: As above Disposition: Transfer Impression: 1. Dizziness 2. Intracerebral hemorrhage This note was generated with [employer] dictation software. It may contain incorrect words, spelling, and punctuation that were not noted in review of the chart prior to signing ED Disposition - Plan for ED Patient: Disposition: [facility] Chief Complaint: Fall Referrals: Giuliana Wright MD [Primary Care Provider] -
--- NOTE | 2018-04-21 11:34 | ED.DCSUM_ITS ---
- ER Visit Summary Date of Service: 04/21/18 Chief Complaint: Dizziness History of Present Illness: The patient is a 82 F with dizziness this morning. She woke up at home. She felt dizzy like she was going to pass out. She sat down onto her couch. She had some mid back pain. She did not lose consciousness or have any seizure activity. She has a history of collapse and syncope. She is currently seeing a developmental writing instructor and has been wearing a applicator sprayer. It is unsure why she has these episodes. Physical Examination: Afebrile and vital signs unremarkable. Patient is in no acute distress. Head and neck atraumatic and nontender. Heart regular. Lungs clear. Abdomen soft. Diffuse lower thoracic and upper lumbar tenderness to palpation, overlying skin appears normal. Cranial nerves grossly intact. No focal weakness or numbness. Test Results: EKG showed sinus rhythm at a rate of 84. No sign of acute ischemia or infarction pattern. Hemoglobin 9.7, stable. CMP, coags, troponin all unremarkable. Chest x-ray showed bibasilar pulmonary nodules right side worse than left. Thoracic and lumbar spine x-rays unremarkable. CT brain showed a left caudate nucleus subtle hemorrhage versus artifact. Radiology recommends a repeat CT in 24 hours. Emergency Department Course and Treatment: Patient seen on arrival to the ED. No sign of stroke. Patient was monitored. Workup was all fairly unremarkable and stable. The patient has recently been treated for pneumonia. She is not having respiratory symptoms. CT had showed a possible hemorrhage versus artifact. Repeat CT was advised. Neurosurgery is not available at this facility. At the patient and family's request, I did call [facility] and the patient will be observed there. Patient also discussed with Dr. Lama. His office will follow up with interrogation of her heart monitor. Treatment Plan: As above Disposition: Transfer Impression: 1. Dizziness 2. Intracerebral hemorrhage This note was generated with [employer] dictation software. It may contain incorrect words, spelling, and punctuation that were not noted in review of the chart prior to signing ED Disposition - Plan for ED Patient: Disposition: [facility] Chief Complaint: Fall Referrals: Giuliana Wright MD [Primary Care Provider] -
== END 2018-04-21 13:54 | disposition short-term general hospital (02) ==
LOC: ED 07:30
PROVIDERS: Emergency Provider Emergency Medicine; Family Provider Internal Medicine; PCP Internal Medicine
DX: I62.9 Nontraumatic intracranial hemorrhage, unspecified (principal); R42 Dizziness and giddiness; F03.90 Unspecified dementia, unspecified severity, without behavioral disturbance, psychotic disturbance, mood disturbance, and anxiety; I10 Essential (primary) hypertension; E78.00 Pure hypercholesterolemia, unspecified; D64.9 Anemia, unspecified; I48.91 Unspecified atrial fibrillation; Z99.81 Dependence on supplemental oxygen; Z79.82 Long term (current) use of aspirin; Z79.899 Other long term (current) drug therapy
CPT/HCPCS: 51702; 70450; 71045; 72072; 72100; 80053; 81001; 84484; 85025; 85610; 85730; 93005; 99285; J7040; A4216

== ENCOUNTER 2018-04-24 15:18 | Observation (INO) | payer MEDICARE, SELFPAY ==
[2018-04-24 15:19] VITALS: BP 105/62; PULSE 105; RESP 17; TEMP 36.7; O2SAT 93; BMI 16.5
--- NOTE | 2018-04-24 15:36 | RAD_ITS ---
STUDY: X-RAY CHEST REASON FOR EXAM: Female, 82 years old. Cough TECHNIQUE: PA and lateral chest COMPARISON: 04/21/2018 x-ray chest FINDINGS: There is pulmonary hyperlucency and hyperinflation with diffuse mild coarsening of the pulmonary interstitium and flattening of the hemidiaphragms in a pattern most consistent with underlying COPD/emphysema with no acute superimposed infiltrate, effusion, pneumothorax or suspicious focal pulmonary lesion. Normal cardiomediastinal silhouette, theresa and pleural margins. No acute osseous or upper abdominal process. RAD/Chest PA and Lateral IMPRESSION: No acute cardiopulmonary process. Electronically Signed: Sudarshan Wade, at 16:33 EDT Tel , Service support ,
--- NOTE | 2018-04-24 15:36 | CT_ITS ---
STUDY: CT BRAIN WITHOUT CONTRAST REASON FOR EXAM: Female, 82 years old. Weakness since hip surgery 2 months ago. RADIATION DOSAGE (If Supplied By Facility): CTDIvol = ( 44.99 ) mGy, DLP = ( 745.49 ) mGycm TECHNIQUE: Transaxial CT imaging of the brain was performed without administration of intravenous contrast material. Coronal and sagittal 2-D MPR Individualized dose optimization techniques were used for this CT. COMPARISON: 04/21/2018 CT head. 10/11/2016 CT head. FINDINGS: Paranasal sinuses clear. Mastoid air cells on the right are well-developed and clear. 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 The middle ear cavities are clear. Symmetric and grossly normal features of the vestibular and acoustic apparatus of the temporal bones. Craniofacial osseous structures intact. Extra cranial soft tissues including orbital contents normal. Mild symmetric expansion of lateral ventricles and extra axial spaces consistent with age-related cerebral atrophy. Moderate confluent chronic low-density changes are present in the deep white matter diffusely, bifrontal, biparietal, consistent with chronic microvascular ischemic disease. There is no acute intracranial bleed, mass or mass effect nor any specific evidence of acute territorial infarct. CT/Brain/Head without Contrast IMPRESSION: No acute intracranial process. Electronically Signed: Sudarshan Wade, at 16:31 EDT Tel , Service support ,
--- NOTE | 2018-04-24 15:36 | EKG12_ITS ---
Test Reason : WEAKNESS Blood Pressure : / mmHG Vent. Rate : 097 BPM Atrial Rate : 097 BPM P-R Int : 110 ms QRS Dur : 068 ms QT Int : 354 ms P-R-T Axes : 000 073 070 degrees QTc Int : 449 ms Sinus rhythm with short SD Otherwise normal ECG Confirmed by ADAMARIS MENDOZA, EVER ([id number]), newspaper editor managing SANTIAGO CUTLER ([id number]) on 04/26/2018 1:27:19 PM Referred By: MANUEL Confirmed By:EVER BAILON MD
--- NOTE | 2018-04-24 15:39 | ED.VISSUMM ---
- ER Visit Summary Date of Service: 04/24/18 Chief Complaint: Weakness History of Present Illness: The patient is a 82 F brought by EMS from home with generalized weakness. No current family present. Reports fall in February with right hemiarthroplasty by Dr. Cabezas. History of osteoporosis. Since then review records as developed pneumonia, this was seen in the March. Patient seen 3 days ago for evaluation of dizzy lightheaded symptoms. She has had syncope in the near recent past. She does have a hospital monitor on. There was concern of potential artifact versus intracranial hemorrhage [address] she was sent to [facility]. Patient states she has been home since. States cough today. Nonproductive. No chest pains. No nausea or vomiting. Denies urinary symptoms. Denies diarrhea. Per discussion with EMS has been multiple call outs to the house for evaluation of the patient. Physical Examination: General: Alert and oriented ?3, no acute distress HEENT: Normocephalic, atraumatic. Dry mucosa membranes Neck: supple, nontender. Cardiovascular: Regular tachycardic rate 104 and rhythm, no murmurs Respiratory: Normal breath sounds, symmetric, no distress Abdomen: Soft, nontender, nondistended Extremities: Nontender, no edema, pulses intact ?4 Neuro: no focal neurological deficits. Test Results: CT head negative. Chest x-ray negative. Labs W BC is 9, he will 10.1. Creatinine 0.57. Liver enzymes normal. Troponin negative. EKG sinus rate of [address] changes. Isolated T wave inversion in aVL unchanged from previous. UA pending. Emergency Department Course and Treatment: Patient turns which generalized weakness. Denies any symptoms. Slightly dry mucosa membranes. She is given IV fluids. Workup initiated stable current urine is pending. Daughter did later arrive discussed with her, she was discharged yesterday from [facility] with a negative MRI and MRA of her head. She reports does have child psychometrist twice a week, however took both of them to move the patient, she is unable to take care of her at this time. Spoke with hospitalist, Dr. Moreno, who evaluate patient ED will admit for observations. Treatment Plan: [] Disposition: Admission Impression: 1. Weakness 2. Failure to thrive This note was generated with [employer] dictation software. It may contain incorrect words, spelling, and punctuation that were not noted in review of the chart prior to signing ED Disposition - Plan for ED Patient: Disposition: Acute Care Hospital [facility] Chief Complaint: Weakness Diagnosis: Weakness, Failure to thrive Referrals: Giuliana Wright MD [Primary Care Provider] -
--- NOTE | 2018-04-24 15:42 | ED.DCSUM_ITS ---
- ER Visit Summary Date of Service: 04/24/18 Chief Complaint: Weakness History of Present Illness: The patient is a 82 F brought by EMS from home with generalized weakness. No current family present. Reports fall in February with right hemiarthroplasty by Dr. Cabezas. History of osteoporosis. Since then review records as developed pneumonia, this was seen in the March. Patient seen 3 days ago for evaluation of dizzy lightheaded symptoms. She has had syncope in the near recent past. She does have a court recording monitor on. There was concern of potential artifact versus intracranial hemorrhage [address] she was sent to [facility]. Patient states she has been home since. States cough today. Nonproductive. No chest pains. No nausea or vomiting. Denies urinary symptoms. Denies diarrhea. Per discussion with EMS has been multiple call outs to the house for evaluation of the patient. Physical Examination: General: Alert and oriented ?3, no acute distress HEENT: Normocephalic, atraumatic. Dry mucosa membranes Neck: supple, nontender. Cardiovascular: Regular tachycardic rate 104 and rhythm, no murmurs Respiratory: Normal breath sounds, symmetric, no distress Abdomen: Soft, nontender, nondistended Extremities: Nontender, no edema, pulses intact ?4 Neuro: no focal neurological deficits. Test Results: CT head negative. Chest x-ray negative. Labs W BC is 9, he will 10.1. Creatinine 0.57. Liver enzymes normal. Troponin negative. EKG sinus rate of [address] changes. Isolated T wave inversion in aVL unchanged from previous. UA pending. Emergency Department Course and Treatment: Patient turns which generalized weakness. Denies any symptoms. Slightly dry mucosa membranes. She is given IV fluids. Workup initiated stable current urine is pending. Daughter did later arrive discussed with her, she was discharged yesterday from [facility] with a negative MRI and MRA of her head. She reports does have home hospice aide twice a week, however took both of them to move the patient, she is unable to take care of her at this time. Spoke with hospitalist, Dr. Moreno, who evaluate patient ED will admit for observations. Treatment Plan: [] Disposition: Admission Impression: 1. Weakness 2. Failure to thrive This note was generated with [employer] dictation software. It may contain incorrect words, spelling, and punctuation that were not noted in review of the chart prior to signing ED Disposition - Plan for ED Patient: Disposition: Acute Care Hospital [facility] Chief Complaint: Weakness Diagnosis: Weakness, Failure to thrive Referrals: Giuliana Wright MD [Primary Care Provider] -
[2018-04-24] MEDS: 0.9% Normal Saline 1,000 ML 150 ML IV (16:04)
--- NOTE | 2018-04-24 16:09 | ED.RN ---
THIS RN ATTEMPTED TO CALL PT DAUGHTER. NO ANSWER, THIS RN LEFT A VOICEMAIL WITH RETURN CONTACT INFO. PT INFORMED.
[2018-04-24 16:23] LABS: Absolute Lymphocyte Count 1.44 X10^3/ul (0.83-4.51); Absolute Neutrophil Count 6.2 X10^3/uL (2.0-7.7); Basophil# 0.03 X10^3/uL; Basophil% 0.3 % (0-1); Eosinophil# 0.32 X10^3/uL; Eosinophils% 3.6 % (0-5); Hematocrit 32.8 % (37-47); Hemoglobin 10.1 g/dl (12.0-15.0); Lymphocyte # 1.44 X10^3/ul (4.0); Mean Corp Hgb Conc 30.8 g/gl (32-36); Mean Corpuscular Hgb 29.1 pg (27.0-32.0); Mean Corpuscular Volume 94.5 fL (81-99); Mean Platelet Vol. 9.8 fl (6.2-12.0); Monocyte# 1.06 X10^3/uL; Monocyte% 11.8 % (0-10); Neutrophil # 6.15 X10^3/uL (2.7-7.7); Neutrophil % 68.2 % (47-70); Platelet Count 421 K/mm3 (150-450); RBC Distribution Width CV 15.5 % (11.6-14.6); RBC Distribution Width SD 53.2 fl (35.1-43.9); Red Blood Count 3.47 M/mm3 (4.2-5.4)
[2018-04-24 16:31] LABS: POSITIVE COUNT NO; POSITIVE DIFFERENTIAL NO; POSITIVE MORPHOLOGY NO
[2018-04-24 16:37] LABS: ALB/GLOB Ratio 0.7 RATIO (0.9-2.4); AST(SGOT) 20 U/L (15-37); Alanine Aminotransfer ALT/SGPT 24 U/L (13-56); Albumin, Serum 2.9 g/dL (3.2-5.0); Alkaline Phosphatase 107 U/L (45-117); Anion Gap 9 (5-15); BUN 21 mg/dL (7-18); BUN/Creat Ratio 36.6 RATIO (10-20); Calcium,Total 9.1 mg/dL (8.5-10.1); Chloride 99 mmol/L (98-107); Creatinine, Serum 0.57 mg/dL (0.55-1.02); EST Glomerular Filtration Rate 107 mL/min (>60); Est Glom Filt Rate - Afr Amer 129 mL/min (>60); Estimated Creatinine Clearance 27.47 ml/min; Globulin 4.1 g/dL (2.2-4.2); Glucose 113 mg/dL (74-106); Potassium 4.4 mmol/L (3.5-5.1); Sodium Level 138 mmol/L (136-145)
--- NOTE | 2018-04-24 17:07 | PCM.HP.STD ---
Problem List (1) Debility Status: Acute (2) Hypertension Status: Chronic (3) Dyslipidemia Status: Chronic (4) Malnutrition Status: Chronic Qualifiers: (5) Anemia Status: Chronic Qualifiers: (6) Hyperlipidemia Status: Chronic Qualifiers: (7) Paroxysmal atrial fibrillation Status: Chronic (8) Dementia Status: Chronic Qualifiers: (9) HTN (hypertension) Status: Chronic Qualifiers: History of Present Illness Date of Admission: 04/24/18 Chief Complaint: weakness The patient is a 82 year old F's medical history as above who presented to the emergency room by bryan today for severe weakness. She was recently admitted to [facility] after a fall on Sunday. She at that time was brought to the emergency room and there was concern for an aneurysm on the CT so she was transferred for aneurysm workup. She underwent MRI and MRA and was told there was no aneurysm, no stroke. She was discharged home in a very weakened state. She returned home from the hospital yesterday. Since being home she has not been able to get out of bed at all. She is unable to sit up on her own. Her home health care nurse came to visit today and was unable to get her up on her own, required the assistance of the patient's daughter as well. When they were able to get her up she was found covered in stool. She had one episode of diarrhea this morning which was the incontinence. She also recently had pneumonia and still has a cough from this, nonproductive. She also has no fever or white count at this time. She is not short of breath. She does not feel like she has any dysuria or abdominal pain. No nausea or vomiting. Daughter is open to the idea of placement in nursing home temporarily for strengthening before returning back home. [] Past Medical History Past Medical History (Chronic Problems): Chronic Problems (This Medical Record has been edited. Action required.) Dizziness (Chronic) Closed right hip fracture (Chronic) 02/21/18 OR w/ R hip hemiarthroplasty per Dr. Cabezas Osteoporosis (Chronic) Hypertension (Chronic) Dyslipidemia (Chronic) Malnutrition (Chronic) Anemia (Chronic) Premature atrial contractions (Chronic) Hyperlipidemia (Chronic) Paroxysmal atrial fibrillation (Chronic) Dementia (Chronic) Aortic valve disorder (Chronic) HTN (hypertension) (Chronic) Medical History: Medical History (This Medical Record has been edited. Action required.) Dizziness (Chronic) R42 Closed right hip fracture (Chronic) S72.001A 02/21/18 OR w/ R hip hemiarthroplasty per Dr. 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 Allergies No Known Allergies Allergy (Verified 04/24/18 15:19) Home Medications: Ambulatory Orders Medication Instructions Recorded Atorvastatin Calcium [Lipitor] 20 mg PO QHS 05/15/13 Ranitidine [Zantac] 150 mg PO BID 05/15/13 Vit D3/Folic Acid/B2/B6/B12 1 tab PO MO 05/15/13 [Folgard Tablet] Acetaminophen [Tylenol Extra 500 mg PO Q6H PRN PRN 10/11/16 Strength] Multivitamin [Daily Multiple 1 ea PO DAILY 10/11/16 Vitamin] alendronate 70 mg tablet 70 mg PO QWEEK 02/18/18 ergocalciferol (vitamin D2) 50,000 50,000 unit PO MOFR tab 02/18/18 unit tablet Calcium Carbonate/Vitamin D3 1 each PO DAILY 02/20/18 [Calcium 250-Vit D3 125 Tablet] Ascorbic Acid [Vitamin C] 500 mg PO DAILY@0800 tab 02/26/18 Iron Polysaccharide Complex 150 mg PO DAILYCM cap 02/26/18 [Ferrex 150] Aspirin E.C. [Ecotrin] 81 mg PO DAILY@0800 04/24/18 Surgical History: Surgical History (This Medical Record has been edited. Action required.) h/o right hip surgery History of cataract surgery Z98.49 Surgical History: - - Cataract surgery, 02/21/18 OR w/ R hip hemiarthroplasty per Dr. Cabezas. Psychiatric History: No pertinent psych hx HOME THEATER INSTALLER History: No pertinent HOME THEATER INSTALLER history Lives: With Family Smoking Status: Never smoker Tobacco Use: Non-smoker Alcohol: None Drugs: None - *Family History Maternal Family History: Family History (This Medical Record has been edited. Action required.) Sister Diabetes Daughter Atrial fibrillation History Items: Cancer Paternal Family History: Family History (This Medical Record has been edited. Action required.) Sister Diabetes Daughter Atrial fibrillation History Items: Cancer Sibling Family History: Family History (This Medical Record has been edited. Action required.) Sister Diabetes Daughter Atrial fibrillation History Items: No pertinent history Review of Systems Constitutional: Reports: Weakness. Denies: Chills, Fever, Weight Change HEENT: Denies: Head Aches, Sinus Congestion, Sinus Drainage Cardiovascular: Denies: Chest Pain, Palpitations Respiratory: Reports: Cough. Denies: Shortness of breath at rest, Sputum production Gastrointestinal: Denies: Abdominal Pain, Nausea, Vomiting Genitourinary: Denies: Dysuria Musculoskeletal: Denies: Joint Pain, Joint Tenderness Skin: Denies: Rash, Wounds Neurological: Denies: Numbness, Tingling, Focal weakness Psychiatric: Denies: Anxiety, Depression, Homicidal Ideations, Suicidal Ideations Hematologic/ Lymphatic: Denies: Easy Bruising, Easy Bleeding VTE Information - Inpt Only VTE Present on Admission: No VTE Mechan Device Prophylaxis: None VTE Pharm Prophylaxis ordered?: Yes Patient Problems: Active and Suspected Problems (This Medical Record has been edited. Action required.) Debility (Acute) - Physical Exam General: Alert, Oriented x3, Cooperative, - - Cachectic HEENT: Atraumatic, PERRLA, EOMI, Normocephalic Neck: Supple, No JVD, Negative Carotid Bruits Lungs: Rales - Rales bilateral bases Cardiovascular: Regular rate, No murmurs Abdomen: Bowel Sounds Present, Soft, Non Tender Extremities: No edema, Capillary Refill Less than 3 Seconds Skin: No rashes, No breakdown Musculoskeletal: No Tenderness to Palpation of Joints or Extremities Neurological: Cranial nerves II-XII grossly intact Psych/Mental Status: Normal Affect, Appropriate, Alert and oriented to time, place, person, mood and affect Vital Signs Temp Pulse Resp BP Pulse Ox 98.0 F 105 H 17 105/62 93 04/24/18 15:19 04/24/18 15:19 04/24/18 15:19 04/24/18 15:19 04/24/18 15:19 Oxygen Delivery Method Room Air Weight: 90 lb Body Mass Index (BMI) 16.5 Finger Stick Blood Glucose 131 Laboratory Tests Past 24 Hrs 04/24/18 04/24/18 16:05 16:05 WBC 9.0 RBC 3.47 L Hgb 10.1 L Hct 32.8 L MCV 94.5 MCH 29.1 MCHC 30.8 L RDW 15.5 H RDW Differential 53.2 H Plt Count 421 MPV 9.8 Immature Gran % (Auto) 0.100 Neut % (Auto) 68.2 Lymph % (Auto) 16.0 L Emery % (Auto) 11.8 H Eos % (Auto) 3.6 Baso % (Auto) 0.3 Absolute Neuts (auto) 6.2 Absolute Lymphs (auto) 1.44 Total Counted Not Reportable Sodium 138 Potassium 4.4 Chloride 99 Carbon Dioxide 30.0 Anion Gap 9 BUN 21 H Creatinine 0.57 Estim Creat Clear Calc 27.47 Est GFR (MDRD) Af Amer 129 Est GFR (MDRD) Non-Af 107 BUN/Creatinine Ratio 36.6 H Glucose 113 H Calcium 9.1 Total Bilirubin 0.50 AST 20 ALT 24 Alkaline Phosphatase 107 Troponin I < 0.015 Total Protein 7.0 Albumin 2.9 L Globulin 4.1 Albumin/Globulin Ratio 0.7 L Assessment/Plan All Active Problems (This Medical Record has been edited. Action required.) Debility (Acute) Acute bronchitis (Acute) Pneumonia (Acute) Sepsis (Acute) Near syncope (Acute) Syncope and collapse (Acute) Near syncope (Acute) 1. Debility-patient with worsening weakness after past hospitalization, now unable to get out of bed without the assistive to. Found incontinent at home. She will be admitted with physical therapy occupational therapy consult with plan for transition to nursing home care she is unsafe to return home at this time. CT of the brain is negative. Urinalysis. 2. Dementia-complicating above. Check TSH and B12 3. Recent pneumonia-chronic cough-Mucinex, aerosols, O2 as needed, incentive spirometer. Chest x-ray is negative. 4. Severe protein calorie malnutrition complicating above-dietitian consult and dietary supplementation. 5. History of paroxysmal atrial fibrillation-currently sinus rhythm rate controlled. She is not on oral anticoagulation and would be a poor candidate given her overall debility and dementia. 6. Hypertension-stable 7. Osteoporosis-on bisphosphonate, complicating above, continue vitamin D and calcium supplementation. 8. Hyperlipidemia-on statin 9. Chronic normocytic anemia-appears to be near baseline. As above check B12, check iron, TIBC, ferritin. DVT prophylaxis: Lovenox Discharge planning: retirement. This patient was seen by Christos Richard PA-C under the supervision of Doctor Josh.
[2018-04-24 17:11] VITALS: BP 127/62; PULSE 89; RESP 17; O2SAT 93
[2018-04-24 17:12] VITALS: BP 127/62; PULSE 89; RESP 21; O2SAT 93
[2018-04-24 17:33] LABS: Bacteria 0 SEEN /hpf (None Seen); Mucous, Urine 0 SEEN /hpf (<or=2+); Red Blood Cells-Urine 0 SEEN /hpf (0-5)
[2018-04-24 18:01] VITALS: BMI 16.5
[2018-04-24 18:04] LABS: Color, Urine Yellow (Yellow); Glucose, Dipstick Normal (Normal); Ketone-Dipstick Negative (Negative); Leukocyte Esterase-Dipstick 500 /ul (Negative); Nitrite-Dipstick Negative (Negative); Occult Blood-Urine 10 /ul (Negative); Protein-Dipstick 30 mg/dl (Negative); Urine Clarity Clear (Clear); Urine Urobilinogen 8 mg/dl (Normal)
[2018-04-24 18:05] VITALS: BP 140/62; PULSE 89; RESP 20; TEMP 36.5; O2SAT 92
[2018-04-24 18:13] LABS: Urine Bilirubin Dipstick 1 mg/dL (Negative)
[2018-04-24 18:14] VITALS: BMI 16.5
[2018-04-24 18:22] LABS: Squamous Epithelial Cells - UA 10-25 SEEN /hpf (5-10); White Blood Cells 0-5 SEEN /hpf (0-5)
[2018-04-24 18:50] LABS: Vitamin B12 929 pg/mL (211-911)
[2018-04-24 18:57] LABS: Ferritin 429 ng/mL (8-252); Iron 23 ug/dL (50-170); Iron Binding Capacity,Total 220 ug/dL (250-450); PERCENT IRON SATURATION 10.5 % (15.0-55.0); Thyroid Stim Hormone (TSH) 1.79 uIU/mL (0.358-3.74)
[2018-04-24 20:06] VITALS: BP 137/58; PULSE 93; RESP 16; TEMP 36.7; O2SAT 94
[2018-04-24 20:47] LABS: Magnesium 2.2 mg/dL (1.6-2.6); Phosphorus 4.4 mg/dL (2.5-4.9)
[2018-04-24] MEDS: Atorvastatin Calcium 20 MG Tablet PO (21:51)
[2018-04-24] MEDS: 0.9% Normal Saline 1,000 ML 125 ML IV (23:59)
[2018-04-25 02:25] VITALS: BP 131/65; PULSE 87; RESP 16; TEMP 36.6; O2SAT 96
[2018-04-25] MEDS: 0.9% Normal Saline 1,000 ML 125 ML IV ×2 (08:12→16:16)
[2018-04-25 08:15] VITALS: BP 146/76; PULSE 92; RESP 18; TEMP 37.4; O2SAT 94
[2018-04-25] MEDS: Losartan Potassium 25 MG Tablet PO (08:20)
[2018-04-25] MEDS: Aspirin E.C. 81 MG Tablet PO (08:20)
[2018-04-25] MEDS: Multivitamins,Therapeutic Tablet 1 TABLET PO (08:20)
[2018-04-25] MEDS: Ascorbic Acid 500 MG Tablet PO (08:21)
[2018-04-25] MEDS: Famotidine 20 MG Tablet PO (08:21)
[2018-04-25] MEDS: Iron Polysaccharide Complex 150 MG CAPSULE PO (08:21)
[2018-04-25] MEDS: Calcium Carb/Vitamin D 1 TABLET Tablet PO (08:21)
[2018-04-25 08:33] VITALS: PULSE 90
--- NOTE | 2018-04-25 09:40 | PN_ITS ---
Patient Problems: Active and Suspected Problems (This Medical Record has been edited. Action required.) Debility (Acute) Weakness (Acute) Failure to thrive (Acute) Subjective: Pt is an 82-year-old lady with recent hospitalization for pneumonia was brought to the hospital with progressive generalized weakness and adult failure to thrive. She was apparently found incontinent at home Objective: GENERAL: Frail looking HEENT: Clear conjunctiva, NECK; supple, normal thyroid, CHEST: Clear to auscultation bilaterally, HEART: Regular S1 S2, no audible murmurs ABDOMEN: soft, non-tender, normoactive bowel sounds, RECTAL: deferred EXTREMITIES: No edema, no clubbing, RN CLINICAL: Awake; no lateralizing signs. SKIN: No Rash Vitals/I&O's: Vital Signs Temp Pulse Resp BP Pulse Ox 99.3 F H 90 18 146/76 H 94 04/25/18 08:15 04/25/18 08:33 04/25/18 08:15 04/25/18 08:15 04/25/18 08:15 Oxygen Delivery Method Room Air Weight: 40.9 kg Body Mass Index (BMI) 16.5 Intake and Output for Last 24 Hours 04/23/18 04/24/18 04/25/18 23:59 23:59 23:59 Intake Total 1315 / 1315 Balance 1315 / 1315 Current Medications Acetaminophen (Tylenol) 650 mg PO Q6H PRN PRN PRN Reason: PAIN Albuterol Sulfate (Ventolin Aerosols) 2.5 mg INHALATION Q2H PRN PRN PRN Reason: SOB &/OR WHEEZING Ascorbic Acid (Vitamin C) 500 mg PO DAILY@0800 [facility] Last Admin: 04/25/18 08:21 Dose: 500 mg Aspirin (Ecotrin) 81 mg PO DAILY@0800 [facility] Last Admin: 04/25/18 08:20 Dose: 81 mg Atorvastatin Calcium (Lipitor) 20 mg PO QHS [facility] Last Admin: 04/24/18 21:51 Dose: 20 mg Calcium/Vitamin D (Os-Wiley 500mg + D) [facility] Last Admin: 04/25/18 08:21 Dose: 1 tablet Ergocalciferol (Vitamin D) 50,000 unit PO MoFr [facility] Last Admin: 04/25/18 08:20 Dose: 50,000 unit Famotidine (Pepcid) 20 mg PO DAILY [facility] Last Admin: 04/25/18 08:21 Dose: 20 mg Hydralazine HCl (Apresoline Iv) 10 mg IV Q4H PRN PRN PRN Reason: SBP > 160 Sodium Chloride () 1,000 mls @ 125 mls/hr IV .Q8H [facility] Last Admin: 04/25/18 08:12 Dose: 125 mls/hr Losartan Potassium (Cozaar) 25 mg PO DAILY [facility] Last Admin: 04/25/18 08:20 Dose: 25 mg Multivitamins (Multivitamin) 1 tablet PO DAILY@0800 [facility] Last Admin: 04/25/18 08:20 Dose: 1 tablet Nutritional Formula (Lactose Free) (Ensure Enlive) 120 ml PO 4X/DAY [facility] Last Admin: 04/25/18 08:25 Dose: 120 ml Ondansetron HCl (Zofran) 4 mg IV Q8H PRN PRN PRN Reason: NAUSEA/VOMITING Polysaccharide Iron Complex (Ferrex 150) 150 mg PO DAILYCM [facility] Last Admin: 04/25/18 08:21 Dose: 150 mg Sodium Chloride () 5 - 30 ml IV UD PRN PRN Reason: SALINE FLUSH Medical Necessity - Tobacco Use Smoking Status: Never smoker Tobacco Use: Non-smoker Assessment/Plan All Active Problems (This Medical Record has been edited. Action required.) Debility (Acute) Weakness (Acute) Failure to thrive (Acute) Acute bronchitis (Acute) Pneumonia (Acute) Sepsis (Acute) Near syncope (Acute) Syncope and collapse (Acute) Near syncope (Acute) Pt is an 82-year-old lady with recent hospitalization for pneumonia was brought to the hospital with progressive generalized weakness and adult failure to thrive. She was apparently found incontinent at home 1. Physical debility: Patient has been admitted to regular nursing floor requested for PT OT eval and health and social care teacher to assist with discharge planning 2. History of paroxysmal atrial fibrillation rate controlled not a candidate for systemic anticoagulation due to significant risk for falls 3. Recent hospitalization for pneumonia CXR obtained on admission was unremarkable 4. Hypertension-blood pressure controlled, home medications continued with dose adjustment as needed 5. Dyslipidemia-patient is on statin therapy, continued at home dose 7. Alzheimer's dementia supportive care 8. Severe protein calorie malnutrition; as evidenced by patient low BMI of 16.5 , decreased energy level as well as muscle wasting 9. Anemia secondary to anemia of chronic disorder 10. DVT prophylaxis Lovenox Active Medications Acetaminophen (Tylenol) 650 mg PO Q6H PRN PRN PRN Reason: PAIN Albuterol Sulfate (Ventolin Aerosols) 2.5 mg INHALATION Q2H PRN PRN PRN Reason: SOB &/OR WHEEZING Ascorbic Acid (Vitamin C) 500 mg PO DAILY@0800 [facility] Last Admin: 04/25/18 08:21 Dose: 500 mg Aspirin (Ecotrin) 81 mg PO DAILY@0800 [facility] Last Admin: 04/25/18 08:20 Dose: 81 mg Atorvastatin Calcium (Lipitor) 20 mg PO QHS [facility] Last Admin: 04/24/18 21:51 Dose: 20 mg Calcium/Vitamin D (Os-Wiley 500mg + D) [facility] Last Admin: 04/25/18 08:21 Dose: 1 tablet Ergocalciferol (Vitamin D) 50,000 unit PO MoFr [facility] Last Admin: 04/25/18 08:20 Dose: 50,000 unit Famotidine (Pepcid) 20 mg PO DAILY [facility] Last Admin: 04/25/18 08:21 Dose: 20 mg Hydralazine HCl (Apresoline Iv) 10 mg IV Q4H PRN PRN PRN Reason: SBP > 160 Sodium Chloride () 1,000 mls @ 125 mls/hr IV .Q8H [facility] Last Admin: 04/25/18 08:12 Dose: 125 mls/hr Losartan Potassium (Cozaar) 25 mg PO DAILY [facility] Last Admin: 04/25/18 08:20 Dose: 25 mg Multivitamins (Multivitamin) 1 tablet PO DAILY@0800 [facility] Last Admin: 04/25/18 08:20 Dose: 1 tablet Nutritional Formula (Lactose Free) (Ensure Enlive) 120 ml PO 4X/DAY [facility] Last Admin: 04/25/18 08:25 Dose: 120 ml Ondansetron HCl (Zofran) 4 mg IV Q8H PRN PRN PRN Reason: NAUSEA/VOMITING Polysaccharide Iron Complex (Ferrex 150) [facility] Last Admin: 04/25/18 08:21 Dose: 150 mg Sodium Chloride () 5 - 30 ml IV UD PRN PRN Reason: SALINE FLUSH Clinical Impression(s) from Imaging Studies Brain CT 04/24/18 15:36 IMPRESSION: No acute intracranial process. Electronically Signed: Sudarshan Sheri, at 16:31 EDT Tel , Service support , Chest X-Ray 04/24/18 15:36 IMPRESSION: No acute cardiopulmonary process. Electronically Signed: Sudarshan Sheri, at 16:33 EDT Tel , Service support , Code Visit OBSV E&M: 89665 Subsequent observation care L3
[2018-04-25] MEDS: guaiFENesin Dm 10 ML UDC PO ×2 (12:17→21:53)
[2018-04-25 14:02] VITALS: BP 141/82; PULSE 90; RESP 18; TEMP 36.7; O2SAT 95
--- NOTE | 2018-04-25 15:02 | CHAPLAIN ---
Type of Pastoral Visit _x__ Initial Visit ___ Follow-up Visit ___ On-call Visit ___ General Patient Visit ___ Spiritual Assessment ___ Family Conference ___ Bereavement ___ Rapid Response ___ Code Blue ___ Other (describe below) Pastoral Care Referral From _x__ Patient ___ Family ___ Nurse ___ Physician ___ Entertainer Or Variety Artist ___ Security Nurse ___ Other (describe below) Sacrament/Intervention ___ Active listening ___ Anointing ___ Buddhist ___ Bereavement ___ Communion ___ Krystle exploration ___ ___ Life review ___ Prayer ___ Reconciliation ___ Sacrament of Sick _x__ Supportive presence ___ Wedding ___ Other (describe below) Pastoral Comments daughter is present with patient in the room; pt says that she is fine; pt is watching TV; pt defers questions to daughter; pt does not seek further support at this time
--- NOTE | 2018-04-25 15:52 | CASEMGMT ---
SAMIR met with patient, her daughter, and her other daughter was on speaker phone. SAMIR asked if they were looking at sending her to a fdc for rehab. Patient's oldest daughter on the phone asked about Hospice. SAMIR told them SW would have to ask physician if he feels patient is Hospice appropriate. SAMIR asked if she is not where would they like her to go for rehab. They asked about [facility]. SAMIR told them SW would have to find out how many days she used at the [facility]. SAMIR explained TCU does not take Medicaid so patient would only have 20 days that she could be in TCU and it would actually be less than this as she is has already used some of her days. SAMIR told them SAMIR will follow up with physician, David, and TCU. SAMIR called Emily in [place] and left her a message asking her to call Kamilla back regarding how many days patient used. SAMIR will also pass along to MS 3 Kamilla DAWSON to talk with physician to see if he feels patient is Hospice appropriate. Plan: SNF vs Hospice. Will talk with physician about whether or not patient is appropriate for Hospice and will also talk with David regarding how many days patient has used. [address] ESP[employer] MARKET MANAGER
[2018-04-25] MEDS: Menthol/Lanolin/Calamine/Znox 113 GM Tube 1 APPLIC TOPICAL ×2 (16:03→21:54)
[2018-04-25 20:00] VITALS: BP 151/70; PULSE 103; RESP 16; TEMP 36.6; O2SAT 94
[2018-04-25] MEDS: Atorvastatin Calcium 20 MG Tablet PO (21:53)
[2018-04-25] MEDS: Acetaminophen 325 MG Tablet 650 MG PO (21:53)
[2018-04-26 03:41] VITALS: BP 133/69; PULSE 94; RESP 16; TEMP 37.2; O2SAT 93
[2018-04-26] MEDS: guaiFENesin Dm 10 ML UDC PO ×2 (05:51→16:11)
[2018-04-26 05:56] LABS: Hematocrit 29.1 % (37-47); Hemoglobin 9.1 g/dl (12.0-15.0); Mean Corp Hgb Conc 31.3 g/gl (32-36); Mean Corpuscular Hgb 29.4 pg (27.0-32.0); Mean Corpuscular Volume 93.9 fL (81-99); Platelet Count 334 K/mm3 (150-450); RBC Distribution Width CV 14.8 % (11.6-14.6); RBC Distribution Width SD 48.5 fl (35.1-43.9); White Blood Count 5.4 K/mm3 (4.4-11.0)
[2018-04-26 05:58] LABS: Scan Indicated on CBC? Y/N NO
[2018-04-26 06:15] LABS: Anion Gap 8 (5-15); BUN 8 mg/dL (7-18); BUN/Creat Ratio 19.6 RATIO (10-20); Calcium,Total 8.5 mg/dL (8.5-10.1); Chloride 105 mmol/L (98-107); Creatinine, Serum 0.41 mg/dL (0.55-1.02); EST Glomerular Filtration Rate 158 mL/min (>60); Est Glom Filt Rate - Afr Amer 191 mL/min (>60); Estimated Creatinine Clearance 27.52 ml/min; Glucose 99 mg/dL (74-106); Magnesium 1.9 mg/dL (1.6-2.6); Potassium 3.6 mmol/L (3.5-5.1); Sodium Level 143 mmol/L (136-145)
[2018-04-26] MEDS: Menthol/Lanolin/Calamine/Znox 113 GM Tube 1 APPLIC TOPICAL ×2 (08:09→21:16)
[2018-04-26] MEDS: Losartan Potassium 25 MG Tablet PO (08:09)
[2018-04-26] MEDS: Ascorbic Acid 500 MG Tablet PO (08:09)
[2018-04-26] MEDS: Multivitamins,Therapeutic Tablet 1 TABLET PO (08:09)
[2018-04-26] MEDS: Iron Polysaccharide Complex 150 MG CAPSULE PO (08:09)
[2018-04-26] MEDS: Aspirin E.C. 81 MG Tablet PO (08:09)
[2018-04-26] MEDS: Calcium Carb/Vitamin D 1 TABLET Tablet PO (08:09)
[2018-04-26] MEDS: Famotidine 20 MG Tablet PO (08:10)
[2018-04-26 09:30] VITALS: BP 140/78; PULSE 95; RESP 16; TEMP 37.1; O2SAT 94
--- NOTE | 2018-04-26 09:50 | CASEMGMT ---
Social Work Note SW spoke with Dr. Reed and informed her that pt's family wanted to talk to doctor about Hospice. Dr. Reed states that he will talk to pt's family to determine if pt is Hospice appropriate. SAMIR spoke with Kevan BISHOP who states that she spoke with Deborah in TCU who states TCU is not Medicaid approve facility and TCU is not able to accept pt. Once physician talks to pt's family about Hospice this SW will meet with pt and family to determine discharge plans. Plan: Hospice vs. SNF Kamilla Chery PAYING TELLER, PROCESS MANUFACTURING ENGINEER
--- NOTE | 2018-04-26 10:00 | CASEMGMT ---
Social Work Note Charge Nurse Marietta updated this worker that physician would like Hospice consulted. SAMIR placed a call to [facility] and spoke with Iraida and provided referral. SW faxed referral to [facility]. Plan: CLARKE Chery PIT TANNER, IRON GUARDRAIL INSTALLER
--- NOTE | 2018-04-26 12:23 | NURSING ---
Hospice notification made by SAMIR. Incomplete changed to complete
--- NOTE | 2018-04-26 12:44 | PCM.PN.HOSP ---
Patient Problems: Active and Suspected Problems (This Medical Record has been edited. Action required.) Debility (Acute) Weakness (Acute) Failure to thrive (Acute) Subjective: Talked to the patient's daughter, Ms. Mitra Hayden, present in patient's room and another daughter from [place] on phone. Since patient has mild dementia and is not able to tell past history but she is oriented to time, person and place but not situation. She was told about 3 years ago [address] PCP Dr. Giuliana Holder she does not need medication for dementia at that time. Patient's daughter has concern that she gets recurrent admission for dizziness, lightheadedness but no obvious diagnosis. Patient was transferred to [facility] from ER on 04/20/2018 for dizziness with abnormal CT head finding of possible hemorrhage but most probably artifact. As per the daughter, she stated for about 1-2 days and had MRI brain and MRA of head and CT head which did not show hemorrhage and was discharged home. Prior to that, patient had fall resulting into pathological right displaced femoral neck fractures with right hemiarthroplasty by Dr. Cabezas with history of osteoporosis. Patient also had pneumonia/bronchitis in March and was treated with Levaquin antibiotic. After that patient had generalized weakness and adult failure to thrive . On further request, patient and her daughter agreed for DNR CC. They do not want CPR, ventilator support, intubation mild central line or feeding tube. They requested for hospice consult. Vitals/I&O's: Vital Signs Temp Pulse Resp BP Pulse Ox 98.7 F 95 16 140/78 H 94 04/26/18 09:30 04/26/18 09:30 04/26/18 09:30 04/26/18 09:30 04/26/18 09:30 Oxygen Delivery Method Room Air Weight: 90 lb 2.705 oz Body Mass Index (BMI) 16.5 Intake and Output for Last 24 Hours 04/24/18 04/25/18 04/26/18 23:59 23:59 23:59 Intake Total 2903 / 2903 100 / 100 Balance 2903 / 2903 100 / 100 General: Alert, Oriented x3, Cooperative, Disoriented HEENT: Atraumatic, PERRLA, EOMI, Normocephalic Neck: Supple, No JVD, Negative Carotid Bruits Lungs: Clear to auscultation, Normal air movement, No rhonchi, No wheeze, No rales Cardiovascular: Regular rate, Normal S1, Normal S2, No murmurs Abdomen: Bowel Sounds Present, Soft, Non Tender Extremities: Capillary Refill Less than 3 Seconds, Edema Skin: No rashes, No breakdown Musculoskeletal: No Tenderness to Palpation of Joints or Extremities Neurological: Cranial nerves II-XII grossly intact Psych/Mental Status: Normal Affect, Appropriate Laboratory Results 04/26/18 05:28: WBC 5.4, RBC 3.10 L, Hgb 9.1 L, Hct 29.1 L, MCV 93.9, MCH 29.4, MCHC 31.3 L, RDW 14.8 H, RDW Differential 48.5 H, Plt Count 334, MPV 10.0 04/26/18 05:28: Sodium 143, Potassium 3.6, Chloride 105, Carbon Dioxide 30.0, Anion Gap 8, BUN 8, Creatinine 0.41 L, Estim Creat Clear Calc 27.52, Est GFR (MDRD) Af Amer 191, Est GFR (MDRD) Non-Af 158, BUN/Creatinine Ratio 19.6, Glucose 99, Calcium 8.5, Magnesium 1.9 Current Medications Acetaminophen (Tylenol) 650 mg PO Q6H PRN PRN PRN Reason: PAIN Last Admin: 04/25/18 21:53 Dose: 650 mg Albuterol Sulfate (Ventolin Aerosols) 2.5 mg INHALATION Q2H PRN PRN PRN Reason: SOB &/OR WHEEZING Ascorbic Acid (Vitamin C) 500 mg PO DAILY@0800 [facility] Last Admin: 04/26/18 08:09 Dose: 500 mg Aspirin (Ecotrin) 81 mg PO DAILY@0800 [facility] Last Admin: 04/26/18 08:09 Dose: 81 mg Atorvastatin Calcium (Lipitor) 20 mg PO QHS [facility] Last Admin: 04/25/18 21:53 Dose: 20 mg Calamine/Phenol (Calmoseptine Ointment) 1 applic TOPICAL BID [facility] PRN Reason: Protocol Last Admin: 04/26/18 08:09 Dose: 1 applicatio Calcium/Vitamin D (Os-Wiley 500mg + D) 1 tablet PO DAILYCM [facility] Last Admin: 04/26/18 08:09 Dose: 1 tablet Ergocalciferol (Vitamin D) 50,000 unit PO MoFr [facility] Last Admin: 04/25/18 08:20 Dose: 50,000 unit Famotidine (Pepcid) 20 mg PO DAILY [facility] Last Admin: 04/26/18 08:10 Dose: 20 mg Guaifenesin (Robitussin Dm) 10 ml PO Q6H PRN PRN PRN Reason: cough Last Admin: 04/26/18 05:51 Dose: 10 ml Hydralazine HCl (Apresoline Iv) 10 mg IV Q4H PRN PRN PRN Reason: SBP > 160 Losartan Potassium (Cozaar) 25 mg PO DAILY [facility] Last Admin: 04/26/18 08:09 Dose: 25 mg Multivitamins (Multivitamin) 1 tablet PO DAILY@0800 [facility] Last Admin: 04/26/18 08:09 Dose: 1 tablet Nutritional Formula (Lactose Free) (Ensure Enlive) 120 ml PO 4X/DAY [facility] Last Admin: 04/26/18 08:10 Dose: 120 ml Ondansetron HCl (Zofran) 4 mg IV Q8H PRN PRN PRN Reason: NAUSEA/VOMITING Polysaccharide Iron Complex (Ferrex 150) 150 mg PO DAILYCM [facility] Last Admin: 04/26/18 08:09 Dose: 150 mg Sodium Chloride () 5 - 30 ml IV UD PRN PRN Reason: SALINE FLUSH Medical Necessity - Tobacco Use Smoking Status: Never smoker Tobacco Use: Non-smoker Assessment/Plan All Active Problems (This Medical Record has been edited. Action required.) Debility (Acute) Weakness (Acute) Failure to thrive (Acute) Acute bronchitis (Acute) Pneumonia (Acute) Sepsis (Acute) Near syncope (Acute) Syncope and collapse (Acute) Near syncope (Acute) Pt is an 82-year-old lady with recent hospitalization for pneumonia was brought to the hospital with progressive generalized weakness and adult failure to thrive. She was apparently found incontinent at home 1. Physical debility: Patient has been admitted to regular nursing floor requested for PT OT eval and manager social services to assist with discharge planning 2. History of paroxysmal atrial fibrillation rate controlled not a candidate for systemic anticoagulation due to significant risk for falls 3. Recent hospitalization for pneumonia CXR obtained on admission was unremarkable 4. Hypertension-blood pressure controlled, home medications continued with dose adjustment as needed 5. Dyslipidemia-patient is on statin therapy, continued at home dose 7. Alzheimer's dementia supportive care 8. Severe protein calorie malnutrition; as evidenced by patient low BMI of 16.5, decreased energy level as well as muscle wasting 9. Anemia secondary to anemia of chronic disorder 10. DVT prophylaxis Lovenox Chronic dizziness/lightheadedness: We will do orthostatic vitals. Patient seems well-hydrated. Advanced directive: Discussed in detail with patient's daughter, Ms. Mitra Hayden, present in patient's room and another daughter from [place] on phone. We had a detailed discussion regarding recurrent admission and different options including full code, DNR CC arrest and DNR CC. On further request, patient and her daughter wished for DNR CC. They do not want CPR, ventilator support, intubation mild central line or feeding tube. They requested for hospice consult. Total time spent in [id number] encounter regarding advanced directive: 20 minutes Code Visit Inpatient E&M: 22505 Subs Hosp L2 Procedures: 21376 Advncd Care Plan 30 Min
--- NOTE | 2018-04-26 12:53 | PN_ITS ---
Patient Problems: Active and Suspected Problems (This Medical Record has been edited. Action required.) Debility (Acute) Weakness (Acute) Failure to thrive (Acute) Subjective: Talked to the patient's daughter, Ms. Mitra Hayden, present in patient's room and another daughter from [place] on phone. Since patient has mild dementia and is not able to tell past history but she is oriented to time, person and place but not situation. She was told about 3 years ago by PCP Dr. Giuliana Holder she does not need medication for dementia at that time. Patient's daughter has concern that she gets recurrent admission for dizziness, lightheadedness but no obvious diagnosis. Patient was transferred to [facility] from ER on 04/20/2018 for dizziness with abnormal CT head finding of possible hemorrhage but most probably artifact. As per the daughter, she stated for about 1-2 days and had MRI brain and MRA of head and CT head which did not show hemorrhage and was discharged home. Prior to that, patient had fall resulting into pathological right displaced femoral neck fractures with right hemiarthroplasty by Dr. Cabezas with history of osteoporosis. Patient also had pneumonia/bronchitis in March and was treated with Levaquin antibiotic. After that patient had generalized weakness and adult failure to thrive . On further request, patient and her daughter agreed for DNR CC. They do not want CPR, ventilator support, intubation mild central line or feeding tube. They requested for hospice consult. Vitals/I&O's: Vital Signs Temp Pulse Resp BP Pulse Ox 98.7 F 95 16 140/78 H 94 04/26/18 09:30 04/26/18 09:30 04/26/18 09:30 04/26/18 09:30 04/26/18 09:30 Oxygen Delivery Method Room Air Weight: 90 lb 2.705 oz Body Mass Index (BMI) 16.5 Intake and Output for Last 24 Hours 04/24/18 04/25/18 04/26/18 23:59 23:59 23:59 Intake Total 2903 / 2903 100 / 100 Balance 2903 / 2903 100 / 100 General: Alert, Oriented x3, Cooperative, Disoriented HEENT: Atraumatic, PERRLA, EOMI, Normocephalic Neck: Supple, No JVD, Negative Carotid Bruits Lungs: Clear to auscultation, Normal air movement, No rhonchi, No wheeze, No rales Cardiovascular: Regular rate, Normal S1, Normal S2, No murmurs Abdomen: Bowel Sounds Present, Soft, Non Tender Extremities: Capillary Refill Less than 3 Seconds, Edema Skin: No rashes, No breakdown Musculoskeletal: No Tenderness to Palpation of Joints or Extremities Neurological: Cranial nerves II-XII grossly intact Psych/Mental Status: Normal Affect, Appropriate Laboratory Results 04/26/18 05:28: WBC 5.4, RBC 3.10 L, Hgb 9.1 L, Hct 29.1 L, MCV 93.9, MCH 29.4, MCHC 31.3 L, RDW 14.8 H, RDW Differential 48.5 H, Plt Count 334, MPV 10.0 04/26/18 05:28: Sodium 143, Potassium 3.6, Chloride 105, Carbon Dioxide 30.0, Anion Gap 8, BUN 8, Creatinine 0.41 L, Estim Creat Clear Calc 27.52, Est GFR ( MDRD) Af Amer 191, Est GFR (MDRD) Non-Af 158, BUN/Creatinine Ratio 19.6, Glucose 99, Calcium 8.5, Magnesium 1.9 Current Medications Acetaminophen (Tylenol) 650 mg PO Q6H PRN PRN PRN Reason: PAIN Last Admin: 04/25/18 21:53 Dose: 650 mg Albuterol Sulfate (Ventolin Aerosols) 2.5 mg INHALATION Q2H PRN PRN PRN Reason: SOB &/OR WHEEZING Ascorbic Acid (Vitamin C) 500 mg PO DAILY@0800 [facility] Last Admin: 04/26/18 08:09 Dose: 500 mg Aspirin (Ecotrin) 81 mg PO DAILY@0800 [facility] Last Admin: 04/26/18 08:09 Dose: 81 mg Atorvastatin Calcium (Lipitor) 20 mg PO QHS [facility] Last Admin: 04/25/18 21:53 Dose: 20 mg Calamine/Phenol (Calmoseptine Ointment) 1 applic TOPICAL BID [facility] PRN Reason: Protocol Last Admin: 04/26/18 08:09 Dose: 1 applicatio Calcium/Vitamin D (Os-Wiley 500mg + D) 1 tablet PO DAILYCM [facility] Last Admin: 04/26/18 08:09 Dose: 1 tablet Ergocalciferol (Vitamin D) 50,000 unit PO MoFr [facility] Last Admin: 04/25/18 08:20 Dose: 50,000 unit Famotidine (Pepcid) 20 mg PO DAILY [facility] Last Admin: 04/26/18 08:10 Dose: 20 mg Guaifenesin (Robitussin Dm) 10 ml PO Q6H PRN PRN PRN Reason: cough Last Admin: 04/26/18 05:51 Dose: 10 ml Hydralazine HCl (Apresoline Iv) 10 mg IV Q4H PRN PRN PRN Reason: SBP > 160 Losartan Potassium (Cozaar) 25 mg PO DAILY [facility] Last Admin: 04/26/18 08:09 Dose: 25 mg Multivitamins (Multivitamin) 1 tablet PO DAILY@0800 [facility] Last Admin: 04/26/18 08:09 Dose: 1 tablet Nutritional Formula (Lactose Free) (Ensure Enlive) 120 ml PO 4X/DAY [facility] Last Admin: 04/26/18 08:10 Dose: 120 ml Ondansetron HCl (Zofran) 4 mg IV Q8H PRN PRN PRN Reason: NAUSEA/VOMITING Polysaccharide Iron Complex (Ferrex 150) 150 mg PO DAILYCM [facility] Last Admin: 04/26/18 08:09 Dose: 150 mg Sodium Chloride () 5 - 30 ml IV UD PRN PRN Reason: SALINE FLUSH Medical Necessity - Tobacco Use Smoking Status: Never smoker Tobacco Use: Non-smoker Assessment/Plan All Active Problems (This Medical Record has been edited. Action required.) Debility (Acute) Weakness (Acute) Failure to thrive (Acute) Acute bronchitis (Acute) Pneumonia (Acute) Sepsis (Acute) Near syncope (Acute) Syncope and collapse (Acute) Near syncope (Acute) Pt is an 82-year-old lady with recent hospitalization for pneumonia was brought to the hospital with progressive generalized weakness and adult failure to thrive. She was apparently found incontinent at home 1. Physical debility: Patient has been admitted to regular nursing floor requested for PT OT eval and social media job titles to assist with discharge planning 2. History of paroxysmal atrial fibrillation rate controlled not a candidate for systemic anticoagulation due to significant risk for falls 3. Recent hospitalization for pneumonia CXR obtained on admission was unremarkable 4. Hypertension-blood pressure controlled, home medications continued with dose adjustment as needed 5. Dyslipidemia-patient is on statin therapy, continued at home dose 7. Alzheimer's dementia supportive care 8. Severe protein calorie malnutrition; as evidenced by patient low BMI of 16.5 , decreased energy level as well as muscle wasting 9. Anemia secondary to anemia of chronic disorder 10. DVT prophylaxis Lovenox Chronic dizziness/lightheadedness: We will do orthostatic vitals. Patient seems well-hydrated. Advanced directive: Discussed in detail with patient's daughter, Ms. Mitra Hayden , present in patient's room and another daughter from [place] on phone. We had a detailed discussion regarding recurrent admission and different options including full code, DNR CC arrest and DNR CC. On further request, patient and her daughter wished for DNR CC. They do not want CPR, ventilator support, intubation mild central line or feeding tube. They requested for hospice consult. Total time spent in [id number] encounter regarding advanced directive: 20 minutes Code Visit Inpatient E&M: 12530 Subs Hosp L2 Procedures: 75703 Advncd Care Plan 30 Min
[2018-04-26 15:30] VITALS: BP 138/70; PULSE 92; RESP 16; TEMP 36.8; O2SAT 94
[2018-04-26 15:56] VITALS: BP 117/65; BP 143/81; BP 146/79; PULSE 107; PULSE 76; PULSE 80
[2018-04-26 20:00] VITALS: BP 125/65; PULSE 103; RESP 18; TEMP 37; O2SAT 95
[2018-04-26] MEDS: Atorvastatin Calcium 20 MG Tablet PO (21:16)
[2018-04-27 02:35] VITALS: BP 125/78; PULSE 103; RESP 18; TEMP 37.2; O2SAT 94
[2018-04-27 07:43] LABS: Hematocrit 29.7 % (37-47); Hemoglobin 9.2 g/dl (12.0-15.0); Mean Corpuscular Hgb 28.8 pg (27.0-32.0); Mean Corpuscular Volume 93.1 fL (81-99); Mean Platelet Vol. 9.7 fl (6.2-12.0); Platelet Count 324 K/mm3 (150-450); RBC Distribution Width CV 15.4 % (11.6-14.6); RBC Distribution Width SD 52.3 fl (35.1-43.9); Red Blood Count 3.19 M/mm3 (4.2-5.4); White Blood Count 5.6 K/mm3 (4.4-11.0)
[2018-04-27 07:57] LABS: Scan Indicated on CBC? Y/N NO
[2018-04-27 07:59] LABS: Anion Gap 8 (5-15); BUN 14 mg/dL (7-18); BUN/Creat Ratio 34.7 RATIO (10-20); Calcium,Total 8.8 mg/dL (8.5-10.1); Chloride 102 mmol/L (98-107); EST Glomerular Filtration Rate 160 mL/min (>60); Est Glom Filt Rate - Afr Amer 193 mL/min (>60); Estimated Creatinine Clearance 27.52 ml/min; Glucose 96 mg/dL (74-106); Potassium 3.8 mmol/L (3.5-5.1); Sodium Level 140 mmol/L (136-145)
[2018-04-27 08:50] VITALS: BP 112/75; PULSE 99; RESP 19; TEMP 36.7; O2SAT 94
[2018-04-27] MEDS: Losartan Potassium 25 MG Tablet PO (09:01)
[2018-04-27] MEDS: Calcium Carb/Vitamin D 1 TABLET Tablet PO (09:01)
[2018-04-27] MEDS: Multivitamins,Therapeutic Tablet 1 TABLET PO (09:01)
[2018-04-27] MEDS: Iron Polysaccharide Complex 150 MG CAPSULE PO (09:01)
[2018-04-27] MEDS: Ascorbic Acid 500 MG Tablet PO (09:01)
[2018-04-27] MEDS: Aspirin E.C. 81 MG Tablet PO (09:01)
[2018-04-27] MEDS: Famotidine 20 MG Tablet PO (09:01)
[2018-04-27] MEDS: Menthol/Lanolin/Calamine/Znox 113 GM Tube 1 APPLIC TOPICAL ×2 (09:02→21:07)
--- NOTE | 2018-04-27 13:09 | CASEMGMT ---
SOCIAL WORK: Social work documentation reviewed. Note that Hospice referral was initiated on 04/26/18. hoop puncher asking about status. This SW paged metal bonding press operator Hospice nurse to inquire about status. Carmen reports that Catalina with [facility] is scheduled to meet with patient and family this afternoon. SW notified RN RUDDY, Chris, accordingly. DANIELITO [place]
--- NOTE | 2018-04-27 13:24 | PCM.PN.HOSP ---
Patient Problems: Active and Suspected Problems (This Medical Record has been edited. Action required.) Debility (Acute) Weakness (Acute) Failure to thrive (Acute) Subjective: Medical record including CT head, MRI brain, MRA head and neck reviewed from [facility]. Does not show acute hemorrhage. Vitals/I&O's: Vital Signs Temp Pulse Resp BP Pulse Ox 98.0 F 99 19 H 112/75 94 04/27/18 08:50 04/27/18 08:50 04/27/18 08:50 04/27/18 08:50 04/27/18 08:50 Oxygen Delivery Method Room Air Weight: 90 lb 2.705 oz Body Mass Index (BMI) 16.5 Orthostatic Vital Signs Start: 04/26/18 13:05 Freq: q24h Status: Active Protocol: Activity Type Activity Date Activity User E-Sign Co-Sign Detail Recorded Client Recorded Date Recorded By Document 04/26/18 15:56 ADONIS [id number] 04/26/18 16:08 ADONIS 04/26/18 15:56 Orthostatic Vitals Standing -Blood Pressure (90/60-120/80) 143/81 H -Extremity Use Left Arm -Pulse Rate (60-100) 107 H Sitting -Blood Pressure (90/60-120/80) 117/65 -Extremity Use Left Arm -Pulse Rate (60-100) 80 Lying -Blood Pressure (90/60-120/80) 146/79 H -Extremity Use Left Arm -Pulse Rate (60-100) 76 Intake and Output for Last 24 Hours 04/25/18 04/26/18 04/27/18 23:59 23:59 23:59 Intake Total 2903 / 2903 340 / 340 Balance 2903 / 2903 340 / 340 General: Alert, Oriented x3, Cooperative HEENT: Atraumatic, PERRLA, EOMI, Normocephalic Neck: Supple, No JVD, Negative Carotid Bruits Lungs: Diminished, Rhonchi Cardiovascular: Regular rate, Regular Rhythm, Normal S1, Normal S2, No murmurs Abdomen: Bowel Sounds Present, Soft, Non Tender, Non-Distended Extremities: No edema, Capillary Refill Less than 3 Seconds Skin: No rashes, No breakdown Musculoskeletal: No Tenderness to Palpation of Joints or Extremities, Arthritic Changes, Muscle Wasting Neurological: Cranial nerves II-XII grossly intact Psych/Mental Status: Normal Affect, Appropriate Laboratory Results 04/27/18 07:10: WBC 5.6, RBC 3.19 L, Hgb 9.2 L, Hct 29.7 L, MCV 93.1, MCH 28.8, MCHC 31.0 L, RDW 15.4 H, RDW Differential 52.3 H, Plt Count 324, MPV 9.7 04/27/18 07:10: Sodium 140, Potassium 3.8, Chloride 102, Carbon Dioxide 30.0, Anion Gap 8, BUN 14, Creatinine 0.40 L, Estim Creat Clear Calc 27.52, Est GFR (MDRD) Af Amer 193, Est GFR (MDRD) Non-Af 160, BUN/Creatinine Ratio 34.7 H, Glucose 96, Calcium 8.8 Current Medications Acetaminophen (Tylenol) 650 mg PO Q6H PRN PRN PRN Reason: PAIN Last Admin: 04/25/18 21:53 Dose: 650 mg Albuterol Sulfate (Ventolin Aerosols) 2.5 mg INHALATION Q2H PRN PRN PRN Reason: SOB &/OR WHEEZING Ascorbic Acid (Vitamin C) 500 mg PO DAILY@0800 [facility] Last Admin: 04/27/18 09:01 Dose: 500 mg Aspirin (Ecotrin) 81 mg PO DAILY@0800 [facility] Last Admin: 04/27/18 09:01 Dose: 81 mg Atorvastatin Calcium (Lipitor) 20 mg PO QHS [facility] Last Admin: 04/26/18 21:16 Dose: 20 mg Calamine/Phenol (Calmoseptine Ointment) 1 applic TOPICAL BID [facility] PRN Reason: Protocol Last Admin: 04/27/18 09:02 Dose: 1 applicatio Calcium/Vitamin D (Os-Wiley 500mg + D) [facility] Last Admin: 04/27/18 09:01 Dose: 1 tablet Ergocalciferol (Vitamin D) 50,000 unit PO MoFr [facility] Last Admin: 04/25/18 08:20 Dose: 50,000 unit Famotidine (Pepcid) 20 mg PO DAILY [facility] Last Admin: 04/27/18 09:01 Dose: 20 mg Guaifenesin (Robitussin Dm) 10 ml PO Q6H PRN PRN PRN Reason: cough Last Admin: 04/26/18 16:11 Dose: 10 ml Hydralazine HCl (Apresoline Iv) 10 mg IV Q4H PRN PRN PRN Reason: SBP > 160 Losartan Potassium (Cozaar) 25 mg PO DAILY [facility] Last Admin: 04/27/18 09: Dose: 25 mg Midodrine (Proamatine) 2.5 mg PO TID [facility] Multivitamins (Multivitamin) 1 tablet PO DAILY@0800 [facility] Last Admin: 04/27/18 09:01 Dose: 1 tablet Nutritional Formula (Lactose Free) (Ensure Enlive) 120 ml PO 4X/DAY [facility] Last Admin: 04/27/18 09: Dose: 120 ml Ondansetron HCl (Zofran) 4 mg IV Q8H PRN PRN PRN Reason: NAUSEA/VOMITING Polysaccharide Iron Complex (Ferrex 150) 150 mg PO DAILYCM [facility] Last Admin: 04/27/18 09: Dose: 150 mg Sodium Chloride () 5 - 30 ml IV UD PRN PRN Reason: SALINE FLUSH Medical Necessity - Tobacco Use Smoking Status: Never smoker Tobacco Use: Non-smoker Assessment/Plan All Active Problems (This Medical Record has been edited. Action required.) Debility (Acute) Weakness (Acute) Failure to thrive (Acute) Acute bronchitis (Acute) Pneumonia (Acute) Sepsis (Acute) Near syncope (Acute) Syncope and collapse (Acute) Near syncope (Acute) Pt is an 82-year-old lady with recent hospitalization for pneumonia was brought to the hospital with progressive generalized weakness and adult failure to thrive. She was apparently found incontinent at home. Patient's daughter has concern that she gets recurrent admission for dizziness, lightheadedness but no obvious diagnosis. Patient was transferred to [facility] from ER on 04/20/2018 for dizziness with abnormal CT head finding of possible hemorrhage but most probably artifact. As per the daughter, she stated for about 1-2 days and had MRI brain and MRA of head and CT head which did not show hemorrhage and was discharged home. Prior to that, patient had fall resulting into pathological right displaced femoral neck fractures with right hemiarthroplasty by Dr. Cabezas with history of osteoporosis. Patient also had pneumonia/bronchitis in March and was treated with Levaquin antibiotic. After that patient had generalized weakness and adult failure to thrive . 1. Physical debility: Patient has been admitted to regular nursing floor requested for PT OT eval and social worker health services to assist with discharge planning 2. Recurrent dizziness, lightheadedness, mostly secondary to postural hypotension/POTS: Orthostatic blood pressure shows change in BP from 138/70, heart rate 76 in supine position to 117/65, heart rate 107 in sitting position suggestive of postural hypotension. Started on low-dose of midodrine 2.5 mg p.o. 3 times daily and thigh-high VENICE hose to improve her symptoms. History of paroxysmal atrial fibrillation rate controlled not a candidate for systemic anticoagulation due to significant risk for falls 3. Recent hospitalization for pneumonia and [facility] for concern of a intracerebral hemorrhage. CXR obtained on admission was unremarkable. CT scan, MRI brain and MRA head and neck was reviewed from [facility]. Did not show acute hemorrhage or acute ischemic changes. MRA was negative of major arterial stenosis or occlusion 4. Hypertension-blood pressure controlled, home medications continued with dose adjustment as needed 5. Dyslipidemia-patient is on statin therapy, continued at home dose 7. Alzheimer's dementia supportive care 8. Severe protein calorie malnutrition; as evidenced by patient low BMI of 16.5, decreased energy level as well as muscle wasting 9. Anemia secondary to anemia of chronic disorder 10. DVT prophylaxis Lovenox 2 Code Visit Inpatient E&M: 96890 Subs Hosp L3
[2018-04-27] MEDS: Midodrine HCl 5 MG Tablet 2.5 MG PO ×2 (14:27→21:07)
[2018-04-27 14:31] VITALS: BP 125/75; PULSE 94; RESP 18; TEMP 36.5; O2SAT 93
[2018-04-27 17:00] VITALS: BP 110/57; BP 110/62; BP 113/60; PULSE 101; PULSE 94; PULSE 97
[2018-04-27 20:30] VITALS: BP 118/64; PULSE 104; RESP 18; TEMP 37.3; O2SAT 94
[2018-04-27] MEDS: Atorvastatin Calcium 20 MG Tablet PO (21:07)
[2018-04-28 02:30] VITALS: BP 135/75; PULSE 96; RESP 14; TEMP 36.8; O2SAT 94
[2018-04-28 02:37] VITALS: BP 101/58; BP 117/69; BP 133/77; PULSE 105; PULSE 91; PULSE 93
[2018-04-28] MEDS: Midodrine HCl 5 MG Tablet 2.5 MG PO ×3 (05:17→21:10)
[2018-04-28 07:11] LABS: Anion Gap 8 (5-15); BUN 18 mg/dL (7-18); Calcium,Total 8.5 mg/dL (8.5-10.1); Chloride 102 mmol/L (98-107); Creatinine, Serum 0.44 mg/dL (0.55-1.02); EST Glomerular Filtration Rate 145 mL/min (>60); Est Glom Filt Rate - Afr Amer 176 mL/min (>60); Estimated Creatinine Clearance 27.52 ml/min; Glucose 95 mg/dL (74-106); Potassium 3.9 mmol/L (3.5-5.1); Sodium Level 138 mmol/L (136-145)
[2018-04-28 08:25] VITALS: BP 139/69; PULSE 88; RESP 16; TEMP 36.6; O2SAT 95
[2018-04-28 08:30] VITALS: RESP 16
[2018-04-28] MEDS: Iron Polysaccharide Complex 150 MG CAPSULE PO (08:37)
[2018-04-28] MEDS: Calcium Carb/Vitamin D 1 TABLET Tablet PO (08:38)
[2018-04-28] MEDS: Aspirin E.C. 81 MG Tablet PO (08:38)
[2018-04-28] MEDS: Multivitamins,Therapeutic Tablet 1 TABLET PO (08:38)
[2018-04-28] MEDS: Ascorbic Acid 500 MG Tablet PO (08:38)
[2018-04-28] MEDS: Menthol/Lanolin/Calamine/Znox 113 GM Tube 1 APPLIC TOPICAL ×2 (08:39→21:09)
[2018-04-28] MEDS: Famotidine 20 MG Tablet PO (08:40)
[2018-04-28] MEDS: Losartan Potassium 25 MG Tablet PO (08:41)
[2018-04-28] MEDS: guaiFENesin Dm 10 ML UDC PO (12:11)
[2018-04-28 14:39] VITALS: BP 121/68; PULSE 98; RESP 16; TEMP 36.7; O2SAT 93
[2018-04-28] MEDS: guaiFENesin 600 MG Tablet PO ×2 (14:53→21:10)
--- NOTE | 2018-04-28 15:48 | PCM.PN.HOSP ---
Patient Problems: Active and Suspected Problems (This Medical Record has been edited. Action required.) Debility (Acute) Weakness (Acute) Failure to thrive (Acute) Subjective: Patient has cough for about 1 week but chest x-ray does not show acute change. On Mucinex and Robitussin. Patient is not short of breath. Possible viral URI Vitals/I&O's: Vital Signs Temp Pulse Resp BP Pulse Ox 98.0 F 98 16 121/68 H 93 04/28/18 14:39 04/28/18 14:39 04/28/18 14:39 04/28/18 14:39 04/28/18 14:39 Oxygen Delivery Method Room Air Weight: 90 lb 2.705 oz Body Mass Index (BMI) 16.5 Orthostatic Vital Signs Start: 04/26/18 13:05 Freq: q24h Status: Active Protocol: Activity Type Activity Date Activity User E-Sign Co-Sign Detail Recorded Client Recorded Date Recorded By Document 04/28/18 02:37 [facility] [id number] 04/28/18 02:37 [facility] 04/28/18 02:37 Orthostatic Vitals Standing -Blood Pressure (90/60-120/80) 101/58 L -Extremity Use Left Arm -Pulse Rate (60-100) 105 H Sitting -Blood Pressure (90/60-120/80) 133/77 H -Extremity Use Left Arm -Pulse Rate (60-100) 93 Lying -Blood Pressure (90/60-120/80) 117/69 -Extremity Use Left Arm -Pulse Rate (60-100) 91 Intake and Output for Last 24 Hours 04/26/18 04/27/18 04/28/18 23:59 23:59 23:59 Intake Total 340 / 340 640 / 640 60 / 60 Balance 340 / 340 640 / 640 60 / 60 General: Alert, Oriented x3, Cooperative HEENT: Atraumatic, PERRLA, EOMI, Normocephalic Neck: Supple, No JVD, Negative Carotid Bruits Lungs: Clear to auscultation, Normal air movement Cardiovascular: Regular rate, Regular Rhythm, Normal S1, Normal S2, No murmurs Abdomen: Bowel Sounds Present, Soft, Non Tender, Non-Distended Extremities: No edema, Capillary Refill Less than 3 Seconds Skin: No rashes, No breakdown Musculoskeletal: No Tenderness to Palpation of Joints or Extremities, Arthritic Changes, Muscle Wasting Neurological: Cranial nerves II-XII grossly intact Psych/Mental Status: Normal Affect, Appropriate Laboratory Results 04/28/18 06:15: Sodium 138, Potassium 3.9, Chloride 102, Carbon Dioxide 28.0, Anion Gap 8, BUN 18, Creatinine 0.44 L, Estim Creat Clear Calc 27.52, Est GFR (MDRD) Af Amer 176, Est GFR (MDRD) Non-Af 145, BUN/Creatinine Ratio 41.0 H, Glucose 95, Calcium 8.5 Current Medications Acetaminophen (Tylenol) 650 mg PO Q6H PRN PRN PRN Reason: PAIN Last Admin: 04/25/18 21:53 Dose: 650 mg Albuterol Sulfate (Ventolin Aerosols) 2.5 mg INHALATION Q2H PRN PRN PRN Reason: SOB &/OR WHEEZING Ascorbic Acid (Vitamin C) 500 mg PO DAILY@0800 [facility] Last Admin: 04/28/18 08:38 Dose: 500 mg Aspirin (Ecotrin) 81 mg PO DAILY@0800 [facility] Last Admin: 04/28/18 08:38 Dose: 81 mg Atorvastatin Calcium (Lipitor) 20 mg PO QHS [facility] Last Admin: 04/27/18 21:07 Dose: 20 mg Calamine/Phenol (Calmoseptine Ointment) 1 applic TOPICAL BID [facility] PRN Reason: Protocol Last Admin: 04/28/18 08:39 Dose: 1 applicatio Calcium/Vitamin D (Os-Wiley 500mg + D) [facility] Last Admin: 04/28/18 08:38 Dose: 1 tablet Ergocalciferol (Vitamin D) 50,000 unit PO MoFr [facility] Last Admin: 04/25/18 08:20 Dose: 50,000 unit Famotidine (Pepcid) 20 mg PO DAILY [facility] Last Admin: 04/28/18 08:40 Dose: 20 mg Guaifenesin (Robitussin Dm) 10 ml PO Q6H PRN PRN PRN Reason: cough Last Admin: 04/28/18 12:11 Dose: 10 ml Guaifenesin (Mucinex) 600 mg PO BID [facility] Last Admin: 04/28/18 14:53 Dose: 600 mg Hydralazine HCl (Apresoline Iv) 10 mg IV Q4H PRN PRN PRN Reason: SBP > 160 Losartan Potassium (Cozaar) 25 mg PO DAILY [facility] Last Admin: 04/28/18 08:41 Dose: 25 mg Midodrine (Proamatine) 2.5 mg PO TID [facility] Last Admin: 04/28/18 14:48 Dose: 2.5 mg Multivitamins (Multivitamin) 1 tablet PO DAILY@0800 [facility] Last Admin: 04/28/18 08:38 Dose: 1 tablet Nutritional Formula (Lactose Free) (Ensure Enlive) 120 ml PO 4X/DAY [facility] Last Admin: 04/28/18 14:53 Dose: Not Given Ondansetron HCl (Zofran) 4 mg IV Q8H PRN PRN PRN Reason: NAUSEA/VOMITING Polysaccharide Iron Complex (Ferrex 150) 150 mg PO DAILYCM [facility] Last Admin: 04/28/18 08:37 Dose: 150 mg Sodium Chloride () 5 - 30 ml IV UD PRN PRN Reason: SALINE FLUSH Medical Necessity - Tobacco Use Smoking Status: Never smoker Tobacco Use: Non-smoker Assessment/Plan All Active Problems (This Medical Record has been edited. Action required.) Debility (Acute) Weakness (Acute) Failure to thrive (Acute) Acute bronchitis (Acute) Pneumonia (Acute) Sepsis (Acute) Near syncope (Acute) Syncope and collapse (Acute) Near syncope (Acute) Pt is an 82-year-old lady with recent hospitalization for pneumonia was brought to the hospital with progressive generalized weakness and adult failure to thrive. She was apparently found incontinent at home. Patient's daughter has concern that she gets recurrent admission for dizziness, lightheadedness but no obvious diagnosis. Patient was transferred to [facility] from ER on 04/20/2018 for dizziness with abnormal CT head finding of possible hemorrhage but most probably artifact. As per the daughter, she stated for about 1-2 days and had MRI brain and MRA of head and CT head which did not show hemorrhage and was discharged home. Prior to that, patient had fall resulting into pathological right displaced femoral neck fractures with right hemiarthroplasty by Dr. Cabezas with history of osteoporosis. Patient also had pneumonia/bronchitis in March and was treated with Levaquin antibiotic. After that patient had generalized weakness and adult failure to thrive . 1. Physical debility: Patient has been admitted to regular nursing floor requested for PT OT eval and criminal justice social worker to assist with discharge planning 2. Recurrent dizziness, lightheadedness, mostly secondary to postural hypotension/POTS: Orthostatic blood pressure shows change in BP from 138/70, heart rate 76 in supine position to 117/65, heart rate 107 in sitting position suggestive of postural hypotension. Started on low-dose of midodrine 2.5 mg p.o. 3 times daily and thigh-high VENICE hose to improve her symptoms. On midodrine, otherwise no major drop in blood pressure from lying to sitting and actually it went up from 170/69-133/77. No significant change in heart rate. History of paroxysmal atrial fibrillation rate controlled not a candidate for systemic anticoagulation due to significant risk for falls 3. Recent hospitalization for pneumonia and [facility] for concern of a intracerebral hemorrhage. CXR obtained on admission was unremarkable. CT scan, MRI brain and MRA head and neck was reviewed from [facility]. Did not show acute hemorrhage or acute ischemic changes. MRA was negative of major arterial stenosis or occlusion Repeat chest x-ray PA and lateral since patient still has cough but most probably viral upper respiratory infection. 4. Hypertension-blood pressure controlled, home medications continued with dose adjustment as needed 5. Dyslipidemia-patient is on statin therapy, continued at home dose 7. Alzheimer's dementia supportive care 8. Severe protein calorie malnutrition; as evidenced by patient low BMI of 16.5, decreased energy level as well as muscle wasting 9. Anemia secondary to anemia of chronic disorder 10. DVT prophylaxis Lovenox Patient is DNR CC. Palliative care consulted for possible hospice care. Possible discharge in 1-2 days to either inpatient hospice or home hospice. Code Visit Inpatient E&M: 07709 Subs Hosp L2
--- NOTE | 2018-04-28 15:51 | RAD_ITS ---
STUDY: X-RAY CHEST REASON FOR EXAM: Female, 82 years old. Cough and congestion. TECHNIQUE: PA and lateral views. COMPARISON: 04/24/2018. FINDINGS: The lungs are clear and expanded. There is no demonstrated pleural abnormality. Normal size heart. Normal mediastinum and theresa. Normal visualized pulmonary arteries. Normal visualized aortic arch and descending thoracic aorta. Normal visualized thoracic spine. Normal visualized ribs, clavicles, and shoulders. There is no demonstrated abnormality of the visualized soft tissue structures of the upper abdomen. RAD/Chest PA and Lateral IMPRESSION: Normal x-ray examination of the chest. Electronically Signed: Bev Soria MD at 16:56 EDT Tel , Service support ,
--- NOTE | 2018-04-28 15:52 | PN_ITS ---
Patient Problems: Active and Suspected Problems (This Medical Record has been edited. Action required.) Debility (Acute) Weakness (Acute) Failure to thrive (Acute) Subjective: Patient has cough for about 1 week but chest x-ray does not show acute change. On Mucinex and Robitussin. Patient is not short of breath. Possible viral URI Vitals/I&O's: Vital Signs Temp Pulse Resp BP Pulse Ox 98.0 F 98 16 121/68 H 93 04/28/18 14:39 04/28/18 14:39 04/28/18 14:39 04/28/18 14:39 04/28/18 14:39 Oxygen Delivery Method Room Air Weight: 90 lb 2.705 oz Body Mass Index (BMI) 16.5 Orthostatic Vital Signs Start: 04/26/18 13:05 Freq: q24h Status: Active Protocol: Activity Type Activity Date Activity User E-Sign Co-Sign Detail Recorded Client Recorded Date Recorded By Document 04/28/18 02:37 [facility] [id number] 04/28/18 02:37 [facility] 04/28/18 02:37 Orthostatic Vitals Standing -Blood Pressure (90/60-120/80) 101/58 L -Extremity Use Left Arm -Pulse Rate (60-100) 105 H Sitting -Blood Pressure (90/60-120/80) 133/77 H -Extremity Use Left Arm -Pulse Rate (60-100) 93 Lying -Blood Pressure (90/60-120/80) 117/69 -Extremity Use Left Arm -Pulse Rate (60-100) 91 Intake and Output for Last 24 Hours 04/26/18 04/27/18 04/28/18 23:59 23:59 23:59 Intake Total 340 / 340 640 / 640 60 / 60 Balance 340 / 340 640 / 640 60 / 60 General: Alert, Oriented x3, Cooperative HEENT: Atraumatic, PERRLA, EOMI, Normocephalic Neck: Supple, No JVD, Negative Carotid Bruits Lungs: Clear to auscultation, Normal air movement Cardiovascular: Regular rate, Regular Rhythm, Normal S1, Normal S2, No murmurs Abdomen: Bowel Sounds Present, Soft, Non Tender, Non-Distended Extremities: No edema, Capillary Refill Less than 3 Seconds Skin: No rashes, No breakdown Musculoskeletal: No Tenderness to Palpation of Joints or Extremities, Arthritic Changes, Muscle Wasting Neurological: Cranial nerves II-XII grossly intact Psych/Mental Status: Normal Affect, Appropriate Laboratory Results 04/28/18 06:15: Sodium 138, Potassium 3.9, Chloride 102, Carbon Dioxide 28.0, Anion Gap 8, BUN 18, Creatinine 0.44 L, Estim Creat Clear Calc 27.52, Est GFR ( MDRD) Af Amer 176, Est GFR (MDRD) Non-Af 145, BUN/Creatinine Ratio 41.0 H, Glucose 95, Calcium 8.5 Current Medications Acetaminophen (Tylenol) 650 mg PO Q6H PRN PRN PRN Reason: PAIN Last Admin: 04/25/18 21:53 Dose: 650 mg Albuterol Sulfate (Ventolin Aerosols) 2.5 mg INHALATION Q2H PRN PRN PRN Reason: SOB &/OR WHEEZING Ascorbic Acid (Vitamin C) 500 mg PO DAILY@0800 [facility] Last Admin: 04/28/18 08:38 Dose: 500 mg Aspirin (Ecotrin) 81 mg PO DAILY@0800 [facility] Last Admin: 04/28/18 08:38 Dose: 81 mg Atorvastatin Calcium (Lipitor) 20 mg PO QHS [facility] Last Admin: 04/27/18 21:07 Dose: 20 mg Calamine/Phenol (Calmoseptine Ointment) 1 applic TOPICAL BID [facility] PRN Reason: Protocol Last Admin: 04/28/18 08:39 Dose: 1 applicatio Calcium/Vitamin D (Os-Wiley 500mg + D) [facility] Last Admin: 04/28/18 08:38 Dose: 1 tablet Ergocalciferol (Vitamin D) 50,000 unit PO MoFr [facility] Last Admin: 04/25/18 08:20 Dose: 50,000 unit Famotidine (Pepcid) 20 mg PO DAILY [facility] Last Admin: 04/28/18 08:40 Dose: 20 mg Guaifenesin (Robitussin Dm) 10 ml PO Q6H PRN PRN PRN Reason: cough Last Admin: 04/28/18 12:11 Dose: 10 ml Guaifenesin (Mucinex) 600 mg PO BID [facility] Last Admin: 04/28/18 14:53 Dose: 600 mg Hydralazine HCl (Apresoline Iv) 10 mg IV Q4H PRN PRN PRN Reason: SBP > 160 Losartan Potassium (Cozaar) 25 mg PO DAILY [facility] Last Admin: 04/28/18 08:41 Dose: 25 mg Midodrine (Proamatine) 2.5 mg PO TID [facility] Last Admin: 04/28/18 14:48 Dose: 2.5 mg Multivitamins (Multivitamin) 1 tablet PO DAILY@0800 [facility] Last Admin: 04/28/18 08:38 Dose: 1 tablet Nutritional Formula (Lactose Free) (Ensure Enlive) 120 ml PO 4X/DAY [facility] Last Admin: 04/28/18 14:53 Dose: Not Given Ondansetron HCl (Zofran) 4 mg IV Q8H PRN PRN PRN Reason: NAUSEA/VOMITING Polysaccharide Iron Complex (Ferrex 150) 150 mg PO DAILYCM [facility] Last Admin: 04/28/18 08:37 Dose: 150 mg Sodium Chloride () 5 - 30 ml IV UD PRN PRN Reason: SALINE FLUSH Medical Necessity - Tobacco Use Smoking Status: Never smoker Tobacco Use: Non-smoker Assessment/Plan All Active Problems (This Medical Record has been edited. Action required.) Debility (Acute) Weakness (Acute) Failure to thrive (Acute) Acute bronchitis (Acute) Pneumonia (Acute) Sepsis (Acute) Near syncope (Acute) Syncope and collapse (Acute) Near syncope (Acute) Pt is an 82-year-old lady with recent hospitalization for pneumonia was brought to the hospital with progressive generalized weakness and adult failure to thrive. She was apparently found incontinent at home. Patient's daughter has concern that she gets recurrent admission for dizziness, lightheadedness but no obvious diagnosis. Patient was transferred to [facility] from ER on 04/20/2018 for dizziness with abnormal CT head finding of possible hemorrhage but most probably artifact. As per the daughter, she stated for about 1-2 days and had MRI brain and MRA of head and CT head which did not show hemorrhage and was discharged home. Prior to that, patient had fall resulting into pathological right displaced femoral neck fractures with right hemiarthroplasty by Dr. Cabezas with history of osteoporosis. Patient also had pneumonia/bronchitis in March and was treated with Levaquin antibiotic. After that patient had generalized weakness and adult failure to thrive . 1. Physical debility: Patient has been admitted to regular nursing floor requested for PT OT eval and social worker delinquency prevention to assist with discharge planning 2. Recurrent dizziness, lightheadedness, mostly secondary to postural hypotension/POTS: Orthostatic blood pressure shows change in BP from 138/70, heart rate 76 in supine position to 117/65, heart rate 107 in sitting position suggestive of postural hypotension. Started on low-dose of midodrine 2.5 mg p.o. 3 times daily and thigh-high VENICE hose to improve her symptoms. On midodrine, otherwise no major drop in blood pressure from lying to sitting and actually it went up from 170/69-133/77. No significant change in heart rate. History of paroxysmal atrial fibrillation rate controlled not a candidate for systemic anticoagulation due to significant risk for falls 3. Recent hospitalization for pneumonia and [facility] for concern of a intracerebral hemorrhage. CXR obtained on admission was unremarkable. CT scan , MRI brain and MRA head and neck was reviewed from [facility]. Did not show acute hemorrhage or acute ischemic changes. MRA was negative of major arterial stenosis or occlusion Repeat chest x-ray PA and lateral since patient still has cough but most probably viral upper respiratory infection. 4. Hypertension-blood pressure controlled, home medications continued with dose adjustment as needed 5. Dyslipidemia-patient is on statin therapy, continued at home dose 7. Alzheimer's dementia supportive care 8. Severe protein calorie malnutrition; as evidenced by patient low BMI of 16.5 , decreased energy level as well as muscle wasting 9. Anemia secondary to anemia of chronic disorder 10. DVT prophylaxis Lovenox Patient is DNR CC. Palliative care consulted for possible hospice care. Possible discharge in 1-2 days to either inpatient hospice or home hospice. Code Visit Inpatient E&M: 76810 Subs Hosp L2
[2018-04-28 20:37] VITALS: BP 126/76; PULSE 94; RESP 16; TEMP 36.8; O2SAT 97
[2018-04-28] MEDS: 0.9% NaCl Peripheral Flush Adult/Peds IV (21:09)
[2018-04-28] MEDS: Atorvastatin Calcium 20 MG Tablet PO (21:10)
[2018-04-29 02:40] VITALS: BP 114/79; BP 124/72; PULSE 99; RESP 14; TEMP 37; O2SAT 95
[2018-04-29] MEDS: Midodrine HCl 5 MG Tablet 2.5 MG PO ×3 (06:27→21:32)
[2018-04-29 08:40] VITALS: BP 134/59; PULSE 98; RESP 18; TEMP 36.6; O2SAT 96
--- NOTE | 2018-04-29 09:10 | CASEMGMT ---
Social Work Note SW placed a call to APS Rebecca Kaur and updated her of pt's admission into [facility]. SW to update Rebecca of when pt discharges and to where. Kamilla Chery COMPUTER FORENSICS ANALYST, COORDINATOR OF GENETIC SERVICES
[2018-04-29] MEDS: Famotidine 20 MG Tablet PO (09:53)
[2018-04-29] MEDS: Losartan Potassium 25 MG Tablet PO (09:53)
[2018-04-29] MEDS: Calcium Carb/Vitamin D 1 TABLET Tablet PO (09:54)
[2018-04-29] MEDS: Ascorbic Acid 500 MG Tablet PO (09:54)
[2018-04-29] MEDS: Menthol/Lanolin/Calamine/Znox 113 GM Tube 1 APPLIC TOPICAL ×2 (09:54→21:32)
[2018-04-29 13:36] VITALS: BP 119/64; PULSE 99; RESP 16; TEMP 36.4; O2SAT 100
--- NOTE | 2018-04-29 17:19 | CASEMGMT ---
Social Work Note SAMIR received call from Sukhjinder BUCIO at [facility] stating that a RN from [facility] will be to [facility] to evaluate pt. SAMIR spoke with RN from [facility] who states pt is not appropriate for Hospice but that pt is able to go to SNF with Palliative Care. SW in to speak with pt and pt's daughter Heena present in room. Heena states that she would like a referral sent to [facility] first and then [facility] second. SAMIR placed a call to Idalia at [facility] who confirms they are not in network with pt's insurance. SAMIR faxed referral to Santa at [facility]. Plan: [facility] with Palliative Care pending acceptance and pre-cert Kamilla Chery ASSISTANT PROFESSOR OF MUSIC, GENERAL MERCHANDISE MANAGER
--- NOTE | 2018-04-29 18:13 | PCM.PN.HOSP ---
Patient Problems: Active and Suspected Problems (This Medical Record has been edited. Action required.) Debility (Acute) Weakness (Acute) Failure to thrive (Acute) Subjective: Patient seen and examined. Spent more than 30 mins talking to the family who had lots of questions about her care. She is yet to be seen by Hospice. The family tells me that they is frustrated with her care in general; has been her fourth admission in the hospital; her 3rd in [facility] including when she fell in February 2018. They are hoping for palliative care or hospice so that she can get more help at home. They are also open to possible discharge to custodial facility pending patient eventually being discharged home. Patient lives with 1 of her daughters who is the primary caregiver. I explained that it is sometimes come on to have patient going downhill after a major hip fracture and repair. I believe that all the debility is related to this event, including her post discharge pneumonia, and subsequent weakness. Did have home health but the number of hours that they get a home is not enough to guarantee help. I discussed getting social work and case management involved to assist with discharge planning. I have dated the family and answered all questions to the best of my ability. They voiced satisfaction in the answers I gave to all their questions. Objective: Physical exam: General: Alert, Oriented x3, Cooperative HEENT: Atraumatic, PERRLA, EOMI, Normocephalic Neck: Supple, No JVD, Negative Carotid Bruits Lungs: Clear to auscultation, Normal air movement Cardiovascular: Regular rate, Regular Rhythm, Normal S1, Normal S2, No murmurs Abdomen: Bowel Sounds Present, Soft, Non Tender, Non-Distended Extremities: No edema, Capillary Refill Less than 3 Seconds Skin: No rashes, No breakdown Musculoskeletal: No Tenderness to Palpation of Joints or Extremities, Arthritic Changes, Muscle Wasting Neurological: Cranial nerves II-XII grossly intact Psych/Mental Status: Normal Affect, Appropriate Vitals/I&O's: Vital Signs Temp Pulse Resp BP Pulse Ox 97.5 F L 99 16 119/64 100 04/29/18 13:36 04/29/18 13:36 04/29/18 13:36 04/29/18 13:36 04/29/18 13:36 Oxygen Delivery Method Room Air Weight: 40.9 kg Body Mass Index (BMI) 16.5 Orthostatic Vital Signs Start: 04/26/18 13:05 Freq: q24h Status: Active Protocol: Activity Type Activity Date Activity User E-Sign Co-Sign Detail Recorded Client Recorded Date Recorded By Document 04/29/18 02:40 [facility] [id number] 04/29/18 02:55 [facility] 04/29/18 02:40 Orthostatic Vitals Sitting -Blood Pressure (90/60-120/80) 114/79 -Extremity Use Left Arm -Pulse Rate (60-100) 99 Lying -Blood Pressure (90/60-120/80) 124/72 H -Extremity Use Left Arm -Pulse Rate (60-100) 99 Intake and Output for Last 24 Hours 04/27/18 04/28/18 04/29/18 23:59 23:59 23:59 Intake Total 640 / 640 60 / 60 220 / 220 Output Total 200 / 200 Balance 640 / 640 60 / 60 20 / 20 Current Medications Acetaminophen (Tylenol) 650 mg PO Q6H PRN PRN PRN Reason: PAIN Last Admin: 04/25/18 21:53 Dose: 650 mg Albuterol Sulfate (Ventolin Aerosols) 2.5 mg INHALATION Q2H PRN PRN PRN Reason: SOB &/OR WHEEZING Ascorbic Acid (Vitamin C) 500 mg PO DAILY@0800 [facility] Last Admin: 04/29/18 09:54 Dose: 500 mg Aspirin (Ecotrin) 81 mg PO DAILY@0800 [facility] Last Admin: 04/29/18 10:00 Dose: Not Given Atorvastatin Calcium (Lipitor) 20 mg PO QHS [facility] Last Admin: 04/28/18 21:10 Dose: 20 mg Calamine/Phenol (Calmoseptine Ointment) 1 applic TOPICAL BID [facility] PRN Reason: Protocol Last Admin: 04/29/18 09:54 Dose: 1 applicatio Calcium/Vitamin D (Os-Wiley 500mg + D) 1 tablet PO DAILYCM [facility] Last Admin: 04/29/18 09:54 Dose: 1 tablet Ergocalciferol (Vitamin D) 50,000 unit PO MoFr [facility] Last Admin: 04/29/18 10:00 Dose: Not Given Famotidine (Pepcid) 20 mg PO DAILY [facility] Last Admin: 04/29/18 09:53 Dose: 20 mg Guaifenesin (Robitussin Dm) 10 ml PO Q6H PRN PRN PRN Reason: cough Last Admin: 04/28/18 12:11 Dose: 10 ml Guaifenesin (Mucinex) 600 mg PO BID [facility] Last Admin: 04/29/18 10:00 Dose: Not Given Hydralazine HCl (Apresoline Iv) 10 mg IV Q4H PRN PRN PRN Reason: SBP > 160 Losartan Potassium (Cozaar) 25 mg PO DAILY [facility] Last Admin: 04/29/18 09:53 Dose: 25 mg Midodrine (Proamatine) 2.5 mg PO TID [facility] Last Admin: 04/29/18 13:42 Dose: 2.5 mg Multivitamins (Multivitamin) 1 tablet PO DAILY@0800 [facility] Last Admin: 04/29/18 09:59 Dose: Not Given Nutritional Formula (Lactose Free) (Ensure Enlive) 120 ml PO 4X/DAY [facility] Last Admin: 04/29/18 13:42 Dose: Not Given Ondansetron HCl (Zofran) 4 mg IV Q8H PRN PRN PRN Reason: NAUSEA/VOMITING Polysaccharide Iron Complex (Ferrex 150) 150 mg PO DAILYCM [facility] Last Admin: 04/29/18 09:59 Dose: Not Given Sodium Chloride () 5 - 30 ml IV UD PRN PRN Reason: SALINE FLUSH Last Admin: 04/28/18 21:09 Dose: 10 ml Medical Necessity - Tobacco Use Smoking Status: Never smoker Tobacco Use: Non-smoker Assessment/Plan All Active Problems (This Medical Record has been edited. Action required.) Debility (Acute) Weakness (Acute) Failure to thrive (Acute) Acute bronchitis (Acute) Pneumonia (Acute) Sepsis (Acute) Near syncope (Acute) Syncope and collapse (Acute) Near syncope (Acute) 82-year-old female with recent history of fall and right hip replacement, subsequent pneumonia comes in with progressive weakness and dizziness 1. Debility, related to comorbidities with recent hip replacement, family is open for palliative care in the light of decline of patient's functional status, possibly even hospice, will wait for hospice team to evaluate and will follow up on recommendations 2. Recent dizziness, postural hypotension, patient has a 30 day event monitor, follows with Dr. Canseco, will recheck orthostatic vitals now and also in the morning. 3. Recent bronchitis, chest x-ray ?2 have been negative for acute pneumonia, family reassured, will continue on as needed breathing treatments, not on oxygen 4. Paroxysmal atrial fibrillation, rate controlled, not a candidate for systemic anticoagulation 5. Hypertension, controlled, continue home medication 6. Alzheimer's dementia, not on meds 8. Severe protein calorie malnutrition, on supplements 9. DVT ppx- Lovenox SC Code Visit Inpatient E&M: 18195 Subs Hosp L2
--- NOTE | 2018-04-29 18:19 | PN_ITS ---
Patient Problems: Active and Suspected Problems (This Medical Record has been edited. Action required.) Debility (Acute) Weakness (Acute) Failure to thrive (Acute) Subjective: Patient seen and examined. Spent more than 30 mins talking to the family who had lots of questions about her care. She is yet to be seen by Hospice. The family tells me that they is frustrated with her care in general; has been her fourth admission in the hospital; her 3rd in [facility] including when she fell in February 2018. They are hoping for palliative care or hospice so that she can get more help at home. They are also open to possible discharge to [facility] facility pending patient eventually being discharged home. Patient lives with 1 of her daughters who is the primary caregiver. I explained that it is sometimes come on to have patient going downhill after a major hip fracture and repair. I believe that all the debility is related to this event, including her post discharge pneumonia, and subsequent weakness. Did have home health but the number of hours that they get a home is not enough to guarantee help. I discussed getting social work and case management involved to assist with discharge planning. I have dated the family and answered all questions to the best of my ability. They voiced satisfaction in the answers I gave to all their questions. Objective: Physical exam: General: Alert, Oriented x3, Cooperative HEENT: Atraumatic, PERRLA, EOMI, Normocephalic Neck: Supple, No JVD, Negative Carotid Bruits Lungs: Clear to auscultation, Normal air movement Cardiovascular: Regular rate, Regular Rhythm, Normal S1, Normal S2, No murmurs Abdomen: Bowel Sounds Present, Soft, Non Tender, Non-Distended Extremities: No edema, Capillary Refill Less than 3 Seconds Skin: No rashes, No breakdown Musculoskeletal: No Tenderness to Palpation of Joints or Extremities, Arthritic Changes, Muscle Wasting Neurological: Cranial nerves II-XII grossly intact Psych/Mental Status: Normal Affect, Appropriate Vitals/I&O's: Vital Signs Temp Pulse Resp BP Pulse Ox 97.5 F L 99 16 119/64 100 04/29/18 13:36 04/29/18 13:36 04/29/18 13:36 04/29/18 13:36 04/29/18 13:36 Oxygen Delivery Method Room Air Weight: 40.9 kg Body Mass Index (BMI) 16.5 Orthostatic Vital Signs Start: 04/26/18 13:05 Freq: q24h Status: Active Protocol: Activity Type Activity Date Activity User E-Sign Co-Sign Detail Recorded Client Recorded Date Recorded By Document 04/29/18 02:40 [facility] [id number] 04/29/18 02:55 [facility] 04/29/18 02:40 Orthostatic Vitals Sitting -Blood Pressure (90/60-120/80) 114/79 -Extremity Use Left Arm -Pulse Rate (60-100) 99 Lying -Blood Pressure (90/60-120/80) 124/72 H -Extremity Use Left Arm -Pulse Rate (60-100) 99 Intake and Output for Last 24 Hours 04/27/18 04/28/18 04/29/18 23:59 23:59 23:59 Intake Total 640 / 640 60 / 60 220 / 220 Output Total 200 / 200 Balance 640 / 640 60 / 60 20 / 20 Current Medications Acetaminophen (Tylenol) 650 mg PO Q6H PRN PRN PRN Reason: PAIN Last Admin: 04/25/18 21:53 Dose: 650 mg Albuterol Sulfate (Ventolin Aerosols) 2.5 mg INHALATION Q2H PRN PRN PRN Reason: SOB &/OR WHEEZING Ascorbic Acid (Vitamin C) 500 mg PO DAILY@0800 [facility] Last Admin: 04/29/18 09:54 Dose: 500 mg Aspirin (Ecotrin) 81 mg PO DAILY@0800 [facility] Last Admin: 04/29/18 10:00 Dose: Not Given Atorvastatin Calcium (Lipitor) 20 mg PO QHS [facility] Last Admin: 04/28/18 21:10 Dose: 20 mg Calamine/Phenol (Calmoseptine Ointment) 1 applic TOPICAL BID [facility] PRN Reason: Protocol Last Admin: 04/29/18 09:54 Dose: 1 applicatio Calcium/Vitamin D (Os-Wiley 500mg + D) 1 tablet PO DAILYCM [facility] Last Admin: 04/29/18 09:54 Dose: 1 tablet Ergocalciferol (Vitamin D) 50,000 unit PO MoFr [facility] Last Admin: 04/29/18 10:00 Dose: Not Given Famotidine (Pepcid) 20 mg PO DAILY [facility] Last Admin: 04/29/18 09:53 Dose: 20 mg Guaifenesin (Robitussin Dm) 10 ml PO Q6H PRN PRN PRN Reason: cough Last Admin: 04/28/18 12:11 Dose: 10 ml Guaifenesin (Mucinex) 600 mg PO BID [facility] Last Admin: 04/29/18 10:00 Dose: Not Given Hydralazine HCl (Apresoline Iv) 10 mg IV Q4H PRN PRN PRN Reason: SBP > 160 Losartan Potassium (Cozaar) 25 mg PO DAILY [facility] Last Admin: 04/29/18 09:53 Dose: 25 mg Midodrine (Proamatine) 2.5 mg PO TID [facility] Last Admin: 04/29/18 13:42 Dose: 2.5 mg Multivitamins (Multivitamin) 1 tablet PO DAILY@0800 [facility] Last Admin: 04/29/18 09:59 Dose: Not Given Nutritional Formula (Lactose Free) (Ensure Enlive) 120 ml PO 4X/DAY [facility] Last Admin: 04/29/18 13:42 Dose: Not Given Ondansetron HCl (Zofran) 4 mg IV Q8H PRN PRN PRN Reason: NAUSEA/VOMITING Polysaccharide Iron Complex (Ferrex 150) 150 mg PO DAILYCM [facility] Last Admin: 04/29/18 09:59 Dose: Not Given Sodium Chloride () 5 - 30 ml IV UD PRN PRN Reason: SALINE FLUSH Last Admin: 04/28/18 21:09 Dose: 10 ml Medical Necessity - Tobacco Use Smoking Status: Never smoker Tobacco Use: Non-smoker Assessment/Plan All Active Problems (This Medical Record has been edited. Action required.) Debility (Acute) Weakness (Acute) Failure to thrive (Acute) Acute bronchitis (Acute) Pneumonia (Acute) Sepsis (Acute) Near syncope (Acute) Syncope and collapse (Acute) Near syncope (Acute) 82-year-old female with recent history of fall and right hip replacement, subsequent pneumonia comes in with progressive weakness and dizziness 1. Debility, related to comorbidities with recent hip replacement, family is open for palliative care in the light of decline of patient's functional status , possibly even hospice, will wait for hospice team to evaluate and will follow up on recommendations 2. Recent dizziness, postural hypotension, patient has a 30 day event monitor, follows with Dr. Canseco, will recheck orthostatic vitals now and also in the morning. 3. Recent bronchitis, chest x-ray ?2 have been negative for acute pneumonia, family reassured, will continue on as needed breathing treatments, not on oxygen 4. Paroxysmal atrial fibrillation, rate controlled, not a candidate for systemic anticoagulation 5. Hypertension, controlled, continue home medication 6. Alzheimer's dementia, not on meds 8. Severe protein calorie malnutrition, on supplements 9. DVT ppx- Lovenox SC Code Visit Inpatient E&M: 89983 Subs Hosp L2
[2018-04-29 18:32] VITALS: BP 101/53; BP 129/64; BP 134/69; PULSE 101; PULSE 104; PULSE 108
[2018-04-29] MEDS: 0.9% NaCl Peripheral Flush Adult/Peds IV (19:15)
[2018-04-29] MEDS: 0.9% Normal Saline 1,000 ML 75 ML IV (19:15)
[2018-04-29 21:27] VITALS: BP 116/68; PULSE 103; RESP 16; TEMP 36.9; O2SAT 95
[2018-04-29] MEDS: Atorvastatin Calcium 20 MG Tablet PO (21:32)
[2018-04-29] MEDS: guaiFENesin 600 MG Tablet PO (21:32)
[2018-04-30 02:39] VITALS: BP 122/75; PULSE 100; RESP 16; TEMP 36.6; O2SAT 95
[2018-04-30] MEDS: 0.9% Normal Saline 1,000 ML 75 ML IV (06:06)
[2018-04-30] MEDS: Midodrine HCl 5 MG Tablet 2.5 MG PO ×2 (06:07→12:22)
[2018-04-30 08:26] VITALS: BP 129/63; PULSE 87; RESP 16; TEMP 36.7; O2SAT 93
[2018-04-30] MEDS: Multivitamins,Therapeutic Tablet 1 TABLET PO (08:34)
[2018-04-30] MEDS: Iron Polysaccharide Complex 150 MG CAPSULE PO (08:34)
[2018-04-30] MEDS: Ascorbic Acid 500 MG Tablet PO (08:35)
[2018-04-30] MEDS: Aspirin E.C. 81 MG Tablet PO (08:35)
[2018-04-30] MEDS: Calcium Carb/Vitamin D 1 TABLET Tablet PO (08:35)
[2018-04-30] MEDS: Losartan Potassium 25 MG Tablet PO (10:35)
[2018-04-30] MEDS: Famotidine 20 MG Tablet PO (10:35)
[2018-04-30] MEDS: guaiFENesin 600 MG Tablet PO (10:35)
[2018-04-30] MEDS: Menthol/Lanolin/Calamine/Znox 113 GM Tube 1 APPLIC TOPICAL (10:40)
--- NOTE | 2018-04-30 12:50 | TREXTCAR_ITS ---
- Diet Regular diet - Routine Orders/Code Status Routine Lab Work: CBC - in 3 days, BMP - in 3 days Code Status: DNRCC - Wound(s) coccyx Wound Type: moisture/ pressure area - Therapies Weight Bearing: Weight bearing as tolerated Extremity Affected:: Bilateral Lower Physical Therapy: Eval and Treat Occupational Therapy: Eval and Treat - Allergies/Procedures Done in Hospital Allergies/Adverse Reactions: Allergies No Known Allergies Allergy (Verified 04/24/18 15:19) Procedures: None - Type of Care/Length of Stay Estimated LOS: Convalescent Care Less Than 30 days Type of Care Needed: Skilled Rehab Potential: Fair Prognosis: Fair - Additional Orders/Day of Discharge Additional Orders: Patient will have palliative care in the [place] Day of Discharge: 04/30/18 - Dietary and Speech Recommendations Dietitian Recommendations/Changes: Will provide magic cup and ensure pudding w/ meals. Continue regular diet and ensure w/ medpass. - Follow Up Care Primary Care Physician: Giuliana Wright MD [Primary Care Provider] - Please follow up with your Primary Care Physician in: within 2 weeks
--- NOTE | 2018-04-30 14:20 | PCM.DC.SUM ---
Discharge Date and Diagnosis Date of Admission: 04/24/18 Date of Discharge: 04/30/18 - Primary Discharge Diagnosis Active and Suspected Problems (This Medical Record has been edited. Action required.) Debility (Acute) Weakness (Acute) Failure to thrive (Acute) Orthostatic hypotension Dizziness Severe protein energy malnutrition Acute bronchitis - Secondary Discharge Diagnosis Chronic Problems (This Medical Record has been edited. Action required.) Dizziness (Chronic) Closed right hip fracture (Chronic) 02/21/18 OR w/ R hip hemiarthroplasty per Dr. Cabezas Osteoporosis (Chronic) Hypertension (Chronic) Dyslipidemia (Chronic) Malnutrition (Chronic) Anemia (Chronic) Premature atrial contractions (Chronic) Hyperlipidemia (Chronic) Paroxysmal atrial fibrillation (Chronic) Dementia (Chronic) Aortic valve disorder (Chronic) HTN (hypertension) (Chronic) Hospital Course and Treatment Imaging Results: Clinical Impression(s) from Imaging Studies Brain CT 04/24/18 15:36 IMPRESSION: No acute intracranial process. Electronically Signed: Sudarshan Wade at 16:31 EDT Tel , Service support , Chest X-Ray 04/24/18 15:36 IMPRESSION: No acute cardiopulmonary process. Electronically Signed: Sudarshan Wade at 16:33 EDT Tel , Service support , Chest X-Ray 04/28/18 15:51 IMPRESSION: Normal x-ray examination of the chest. Electronically Signed: Bev Soria MD at 16:56 EDT Tel , Service support , None Operations: None, - Procedures: None Summary of Care Provided: 82-year-old female with recent history of fall and subsequent right hip replacement, recent history of pneumonia, is admitted with progressive weakness and dizziness. Lives at home with her daughter, her daughter states that this is her fourth admission since February when she had hip replacement. She found the patient to be progressively weak and short of breath. Work-up in the hospital has been negative for an acute source of infection as well as pneumonia. Chest x-ray ?2 have been negative. Patient remained off oxygen, received breathing treatments as needed. She was found to be orthostatic for which she received IV fluids. She has chronic dizziness for which she has a 30 day event monitor and is following up with Dr. Canseco. She was seen by physical and Occupational Therapy. [facility] Discussed patient's care in detail with daughter at bedside and the other daughter Shameka on phone. Family had wanted hospice care. Hospice team saw patient and did not accept patient because she did not have an active diagnosis. She will have palliative care on discharge to the custodial. Discharge Diet: 2000 mg Sodium Diet Discharge Activity: Return to Normal Activity Home Medications: Medications to take at Discharge Ranitidine [Zantac] 150 mg PO BID 05/15/13 Vit D3/Folic Acid/B2/B6/B12 [Folgard Tablet] 1 tab PO MO 05/15/13 Acetaminophen [Tylenol Extra Strength] 500 - 1,000 mg PO Q8H PRN 10/11/16 alendronate 70 mg tablet 70 mg PO TU 02/18/18 Ascorbic Acid [Vitamin C] 500 mg PO DAILY@0800 04/24/18 Iron Polysaccharide Complex [Ferrex 150] 150 mg PO DAILYCM 04/24/18 Ondansetron [Zofran Odt] 4 mg PO Q8H PRN PRN 04/24/18 Albuterol Aerosols [Ventolin Aerosols] 2.5 mg INHALATION Q4H PRN PRN vial.neb. 04/30/18 Ascorbic Acid [Vitamin C] 500 mg PO DAILY@0800 tablet 04/30/18 Aspirin E.C. [Ecotrin] 81 mg PO DAILY@0800 tablet 04/30/18 Atorvastatin Calcium [Lipitor] 20 mg PO QHS tablet 04/30/18 Calcium Carb/Vitamin D [Os-Wiley 500MG + D] 1 tablet PO DAILYCM tablet 04/30/18 Ensure Enlive 120 ml PO 4X/DAY liquid 04/30/18 Ergocalciferol [Vitamin D] 50,000 unit PO MoFr capsule 04/30/18 Guaifenesin [Mucinex] 600 mg PO BID PRN tablet 04/30/18 Losartan Potassium [Cozaar] 25 mg PO DAILY tablet 04/30/18 Menthol/Lanolin/Calamine/Znox [Calmoseptine Ointment] 1 applic TOPICAL BID tube 04/30/18 Midodrine HCl [Proamatine] 2.5 mg PO TID tablet 04/30/18 Multivitamins,Therapeutic [Multivitamin] 1 tablet PO DAILY@0800 tablet 04/30/18 Primary Care Physician: Giuliana Wright MD [Primary Care Provider] - Please follow up with your Primary Care Physician in: within 2 weeks Disposition: [facility] facility Minutes spent on discharge:: 45 Patient Condition:: Stable Medical Necessity - Tobacco Use Smoking Status: Never smoker Tobacco Use: Non-smoker Meaningful Use Info Meaningful Use Diagnoses (Choose all that apply): None applicable Code Visit Inpatient E&M: 34309 Disch Hosp
--- NOTE | 2018-04-30 14:30 | CASEMGMT ---
Addendum entered by Kamilla Chery 04/30/18 18:20: SW placed a call to [facility]PS and left a message with Kelsea Owens to update Rebecca Kaur that pt has been discharge to [facility] today. Original Note: Addendum entered by Kamilla Chery 04/30/18 18:19: Pt's daughter Mitra updated this worker that she would like to speak to Sales Trader/SW at [facility]. SAMIR updated Santa at [facility] of this. Original Note: Social Work Note SW received message from Santa at [facility] stating that pre-cert has been obtained and pt is able to discharge today. SW updated physician of this. SAMIR faxed completed discharge paperwork to [facility] including transfer to extended care facility, signed medication list and any scripts to [facility]. Originals in SNF folder and copy on pt's chart. SAMIR updated pt and pt's daughter present in room that pre-cert has been obtained and pt is able to discharge to [facility] today. Pt's daughter Mitra states understanding and would like transportation set up. SAMIR set up transportation via cot through [employer] for 4:00pm. Transportation form on SNF folder and copy on pt's chart. SAMIR updated pt's daughter, RN Eze and Charge Nurse Shannon of transportation time SAMIR placed a call to Santa at [facility] to update her on transportation time as well. PAS/RR completed in [facility]. Original in SNF folder and copy on pt's chart. Plan: Pt to discharge to [facility] today via cot with [employer] transporting at 4:00pm. Kamilla Chery UNIVERSITY TUTOR, [employer]
[2018-04-30 14:33] VITALS: BP 106/64; PULSE 99; RESP 16; TEMP 37; O2SAT 97
--- NOTE | 2018-04-30 15:53 | NURSING ---
Called report to Jill to the receiving nurse.
== END 2018-04-30 17:02 | disposition skilled nursing facility (03) ==
LOC: ED 17:18 → MS3 17:35
PROVIDERS: Internal Medicine; Physician Assistant; Admitting Provider Family Medicine; Emergency Provider Emergency Medicine; Family Provider Internal Medicine; PCP Internal Medicine; Visit Provider Internal Medicine
DX: R53.1 Weakness (principal); R62.7 Adult failure to thrive; I95.1 Orthostatic hypotension; E43 Unspecified severe protein-calorie malnutrition; Z68.1 Body mass index [BMI] 19.9 or less, adult; R42 Dizziness and giddiness; I10 Essential (primary) hypertension; D64.9 Anemia, unspecified; I48.0 Paroxysmal atrial fibrillation; Z87.01 Personal history of pneumonia (recurrent); Z79.899 Other long term (current) drug therapy; Z99.81 Dependence on supplemental oxygen; Z79.82 Long term (current) use of aspirin; Z96.641 Presence of right artificial hip joint
CPT/HCPCS: 36415; 70450; 71046; 80048; 80053; 81001; 82607; 82728; 83540; 83550; 83735; 84100; 84443; 84484; 85025; 85027; 93005; 96360; 96361; 97110; 97116; 97162; 97166; 97530; 97535; 97802; 99218; 99285; J7030; J7050; P9612; A4216; G0378

== ENCOUNTER → 2018-07-02 10:46 | Outpatient (CLI) | payer MEDICARE, SELFPAY ==
--- NOTE | 2018-07-02 10:49 | RAD_ITS ---
STUDY: X-RAY - RIGHT HIP REASON FOR EXAM: Female, 82 years old. Status post right hip replacement TECHNIQUE: 2 views of the hip. AP pelvis. COMPARISON: 03/07/2018 FINDINGS: Degenerative narrowing with subchondral sclerosis of the pubic symphysis. Similar mild degenerative changes at the left hip. Left hip replacement is in stable, radiographic alignment. Normal visualized superior and inferior pubic rami and ischial tuberosities. RAD/HIP, UNI W/ Pelvis 2-3 Views IMPRESSION: Stable right hip replacement. Degenerative changes. Electronically Signed: Jeyson Zavala MD at 19:10 EST , Service support ,
== END ==
PROVIDERS: Family Provider Internal Medicine; PCP Internal Medicine; Referring Provider Physician Assistant; Visit Provider Physician Assistant
DX: M25.551 Pain in right hip (principal)
CPT/HCPCS: 73502

== ENCOUNTER → 2018-09-02 11:27 | Outpatient (CLI) | payer MEDICARE, SELFPAY ==
--- NOTE | 2018-09-02 11:28 | RAD_ITS ---
STUDY: X-RAY - PELVIS AND RIGHT HIP REASON FOR EXAM: Female, 83 years old. Follow-up fracture. TECHNIQUE: 3 views of the pelvis and hip. COMPARISON: Pelvis and right hip, July 12, 2018. FINDINGS: There is a non-specific bowel gas pattern. Normal visualized soft tissue structures. There are multiple calcified phleboliths. Normal bilateral iliac wings, sacroiliac joints and visualized sacrum. Normal bilateral superior and inferior pubic rami. There are degenerative changes of the pubic symphysis with articular narrowing and sclerosis. Normal bilateral ischial tuberosities. Stable left hip. Again seen is a right hip arthroplasty. There is no fracture or loosening from the underlying bone. There is no major interval change when compared to previous examination. RAD/HIP, UNI W/ Pelvis 2-3 Views IMPRESSION: Stable right hip replacement. Electronically Signed: Ricardo Lozano DO at 17:43 EST Tel [phone], Service support ,
--- OUTSIDE RECORDS SUMMARY | 2018-11-04 22:40 | XMS RPT_ITS ---
:1935 Author Organization OHIP Support Name Relationship Address Phone DINESH HAYDEN Unavailable [address] + [place] [address] R Unavailable Unavailable Unavailable DINESH HAYDEN Unavailable [address] + [place] [address] R Unavailable Unavailable Unavailable DINESH HAYDEN Unavailable [address] + [place] [address] R Unavailable Unavailable Unavailable DINESH HAYDEN Unavailable [address] + [place] [address] R Unavailable Unavailable Unavailable DINESH HAYDEN Unavailable [address] + [place] [address] R Unavailable Unavailable Unavailable DINESH HAYDEN Unavailable [address] + [place] [address] R Unavailable Unavailable Unavailable DINESH HAYDEN Unavailable [address] + [place] [address] R Unavailable Unavailable Unavailable DINESH HAYDEN Unavailable [address] + [place] [address] R Unavailable Unavailable Unavailable DINESH HAYDEN Unavailable [address] + [place] [address] R Unavailable Unavailable Unavailable DINESH HAYDEN Unavailable [address] + [place] [address] R Unavailable Unavailable Unavailable DINESH HAYDEN Unavailable [address] + [place] [address] R Unavailable Unavailable Unavailable DINESH HAYDEN Unavailable [address] + [place] [address] R Unavailable Unavailable Unavailable FUHS, DINESH Unavailable [address] + [place] [address] R Unavailable Unavailable Unavailable FUHS, DINESH Unavailable [address] + [place] [address] R Unavailable Unavailable Unavailable SATISHHSDINESH Unavailable [address] + [place] [address] R Unavailable Unavailable Unavailable SATISHHS, DINESH Unavailable [address] + [place] [address] R Unavailable Unavailable Unavailable SATISHHS, DINESH Unavailable [address] + [place] [address] R Unavailable Unavailable Unavailable SATISHHSDINESH Unavailable [address] + [place] [address] R Unavailable Unavailable Unavailable SATISHHSDINESH Unavailable [address] + [place] [address] R Unavailable Unavailable Unavailable SATISHHS, DINESH Unavailable [address] + [place] [address] R Unavailable Unavailable Unavailable SATISHHSDINESH Unavailable [address] + [place] [address] R Unavailable Unavailable Unavailable DINESH HAYDEN Unavailable [address] + [place] [address] R Unavailable Unavailable Unavailable SatishhsDinesh Unavailable [address] + [place] [address] R Unavailable Unavailable Unavailable SatishhsDinesh Unavailable [address] + [place] [address] R Unavailable Unavailable Unavailable SATISHHS, DINESH Unavailable [address] + [place] [address] R Unavailable Unavailable Unavailable FUHSERIKADINESH Unavailable [address] + [place] [address] R Unavailable Unavailable Unavailable FUHS, DINESH Unavailable [address] + [place] [address] R Unavailable Unavailable Unavailable FUHSJAMES Unavailable [address] + [place] [address] R Unavailable Unavailable Unavailable JAMES HAYDEN Unavailable [address] + [place] [address] R Unavailable Unavailable Unavailable Dinesh Hayden Unavailable [address] + [place] [address] R Unavailable Unavailable Unavailable DINESH HAYDEN Unavailable [address] + [place] [address] R Unavailable Unavailable Unavailable DINESH HAYDEN Unavailable [address] + [place] [address] R Unavailable Unavailable Unavailable JAMES HAYDEN Unavailable [address] + [place] [address] R Unavailable Unavailable Unavailable JAMES HAYDEN Unavailable [address] + [place] [address] R Unavailable Unavailable Unavailable JAMES HAYDEN Unavailable [address] + [place] [address] R Unavailable Unavailable Unavailable JAMES HAYDEN Unavailable [address] + [place] [address] R Unavailable Unavailable Unavailable JAMES HAYDEN Unavailable [address] + [place] [address] R Unavailable Unavailable Unavailable JAMES HAYDEN Unavailable [address] + [place] [address] R Unavailable Unavailable Unavailable JAMES HAYDEN Unavailable [address] + [place] [address] R Unavailable Unavailable Unavailable JAMES HAYDEN Unavailable [address] + [place] [address] R Unavailable Unavailable Unavailable JAMES HAYDEN Unavailable [address] + [place] [address] R Unavailable Unavailable Unavailable JAMES HAYDEN Unavailable [address] + [place] [address] R Unavailable Unavailable Unavailable DINESH HAYDEN Unavailable [address] + [place] [address] R Unavailable Unavailable Unavailable DINESH HAYDEN Unavailable [address] + [place] [address] R Unavailable Unavailable Unavailable DINESH HAYDEN Unavailable [address] + [place] [address] R Unavailable Unavailable Unavailable Care Team Providers Name Role Phone HELGA, EHAB Admitting Unavailable ALSTYERBAREEMA, EHAB Attending Unavailable ITRAT, AHMED Consulting Unavailable Ganta, Carole Primary Care Unavailable Yahaira Robbins Attending Unavailable Madelyn Luis Attending Unavailable Primay Care Physicia, No Primary Care Unavailable [facility], Wilfred Admitting Unavailable Coni Moreno Attending Unavailable Drake Cabezas Consulting Unavailable [facility], Wilfred Admitting Unavailable Derek, Wilfred Attending Unavailable Primay Care Physicia, No Primary Care Unavailable [facility], Wilfred Consulting Unavailable [facility], Wilfred Admitting Unavailable Drake Cabezas Attending Unavailable Primay Care Physicia, No Primary Care Unavailable Chicorelli, Ivory Consulting Unavailable Derek, Wilfred Consulting Unavailable Miguel Canseco Attending Unavailable Ganta, Carole Referring Unavailable [facility], Wilfred Admitting Unavailable Drake Cabezas Attending Unavailable Primay Care Physicia, No Primary Care Unavailable Chicorelli, Ivory Consulting Unavailable Koram, Nadege Agueda Consulting Unavailable [facility], Wilfred Admitting Unavailable Paintsil, Towson Attending Unavailable Primay Care Physicia, No Primary Care Unavailable Chicorelli, Ivory Consulting Unavailable Paintsil, Towson Consulting Unavailable [facility], Wilfred Admitting Unavailable Drake Cabezas Attending Unavailable Primay Care Physicia, No Primary Care Unavailable Chicorelli, Ivory Consulting Unavailable Paintsil, Towson Consulting Unavailable [facility], Wilfred Admitting Unavailable Paintsil, Towson Attending Unavailable Primay Care Physicia, No Primary Care Unavailable Chicorelli, Ivory Consulting Unavailable Paintsil, Towson Consulting Unavailable [facility], Wilfred Admitting Unavailable Coni Moreno Attending Unavailable Primay Care Physicia, No Primary Care Unavailable Chicorelli, Iovry Consulting Unavailable White, Coni Consulting Unavailable Derek, Wilfred Admitting Unavailable White Coni Attending Unavailable Primay Care Physicia, No Primary Care Unavailable Diannorelli, Ivory Consulting Unavailable Coni Moreno Consulting Unavailable Miguel Canseco Attending Unavailable Dejan Mohamud Attending Unavailable Ganta, Carole Referring Unavailable Dejan Mohamud Attending Unavailable WaytDejan Referring Unavailable Ganta, Carole Primary Care Unavailable Derek, Wilfred Admitting Unavailable White, Coni Attending Unavailable Primay Care Physicia, No Primary Care Unavailable Vel, Ivory Consulting Unavailable White, Coni Consulting Unavailable Angeloam, Nadege Agueda Attending Unavailable Dejan Mohamud Attending Unavailable Primay Care Physicia, No Referring Unavailable Primay Care Physicia, No Primary Care Unavailable Wayt, Dejan Attending Unavailable Wayt, Dejan Referring Unavailable Primay Care Physicia, No Primary Care Unavailable Jaclyn, Miguel Attending Unavailable Preet, Tyson Attending Unavailable Anaya, Miguel Attending Unavailable Anaya, Miguel Attending Unavailable Roof, Yoav H Attending Unavailable Ganta, Carole Referring Unavailable Ganta, Carole Primary Care Unavailable John Andrade Attending Unavailable Koram, Nadege Agueda Referring Unavailable Chicorelli, Ivory Attending Unavailable Ganta, Carole Referring Unavailable Ganta, Carole Primary Care Unavailable Roof, Yoav H Attending Unavailable Roof, Yoav H Referring Unavailable Miguel Canseco Consulting Unavailable Ganta, Carole Primary Care Unavailable Ganta, Carole Primary Care Unavailable White, Coni Admitting Unavailable Oleghe, Ifijen Attending Unavailable White, Coni Admitting Unavailable White, Coni Attending Unavailable Ganta, Carole Primary Care Unavailable White, Coni Consulting Unavailable White, Coni Admitting Unavailable Ganta, Carole Primary Care Unavailable Oleghe, Ifijen Consulting Unavailable Sementi, Sinai Attending Unavailable White, Coni Admitting Unavailable Ganta, Carole Primary Care Unavailable Oleghe, Ifijen Consulting Unavailable Sementi Sinai Attending Unavailable Ganta, Carole Primary Care Unavailable Yahaira Robbins Attending Unavailable Ganta, Carole Primary Care Unavailable John Ayoub Attending Unavailable Ganta, Carole Attending Unavailable Ganta, Carole Primary Care Unavailable Ganta, Carole Primary Care Unavailable White, Coni Admitting Unavailable ReyesErale chery Consulting Unavailable Paintsil, Towson Attending Unavailable White, Coni Admitting Unavailable Ganta, Carole Primary Care Unavailable White, Coni Consulting Unavailable White, Coni Attending Unavailable White, Coni Admitting Unavailable Kittoe Earle Attending Unavailable Ganta, Carole Primary Care Unavailable Kittoe, Earle Consulting Unavailable White, Coni Admitting Unavailable Derek, Wilfred Attending Unavailable Ganta, Carole Primary Care Unavailable Reyes, Earle Consulting Unavailable Derek, Wilfred Consulting Unavailable White, Coni Admitting Unavailable Derek, Wilfred Attending Unavailable Ganta, Carole Primary Care Unavailable Reyes, Earle Consulting Unavailable Derek, Wilfred Consulting Unavailable White, Coni Admitting Unavailable Derek, Wilfred Attending Unavailable Ganta, Carole Primary Care Unavailable Reyes, Earle Consulting Unavailable Derek, Wilfred Consulting Unavailable White, Coni Admitting Unavailable Paintsil, Towson Attending Unavailable Ganta, Carole Primary Care Unavailable Reyes, Earle Consulting Unavailable Paintsil, Towson Consulting Unavailable White, Coni Admitting Unavailable Paintsil, Towson Attending Unavailable Ganta, Carole Primary Care Unavailable Reyes, Earle Consulting Unavailable Paintsil, Towson Consulting Unavailable Madelyn Luis Attending Unavailable Wayt, Dejan Attending Unavailable Ganta, Carole Referring Unavailable Wayt, Dejan Attending Unavailable Wayt, Dejan Referring Unavailable Ganta, Carole Primary Care Unavailable GANTA, CAROLE Attending Unavailable GANTA, CAROLE Referring Unavailable MD HELGA EHAB Admitting Unavailable MD HELGA EH Attending Unavailable IMCA Primary Care Unavailable ITRAT, AHMED Consulting Unavailable PROBLEMS PROBLEMS DATE TYPE CONDITION / CODE ATTENDING STATUS SOURCE Unknown S72.001A - Fracture of Dejan Mohamud Active [place] 9 unspecified part of Community neck of right femur, Hospital initial encounter for Repository closed fracture / S72.001A(ICD-10) Unknown R42 - Dizziness and Moodispaw, [facility] [place] [facility] giddiness / Miguel Community R42(ICD-10) Hospital Repository Unknown M25.551 - Pain in Dejan Mohamud Active [place] 8 right hip / Community M25.551(ICD-10) Hospital Repository Unknown Z51.89 - Encounter for Ganta, Carole Active [place] 8 other specified Community aftercare / Hospital Z51.89(ICD-10) Repository Active Nontraumatic HELGA Active [place] 8 subarachnoid [facility] Other hemorrhage, [place] unspecified / Repository I60.9(ICD-10) Active Secondary ALSTYERBLINDSAY Active [place] 8 hypertension, E[facility]AB Clinic Other unspecified / [place] I15.9(ICD-10) Repository Admitting Unknown / UNK(Unknown) MD HELGA Active [facility] [address] [facility] Repository Unknown A41.9 - Sepsis, Remi Gallardo Active [place] 8 unspecified organism / Community A41.9(ICD-10) Hospital Repository Unknown R53.83 - Other fatigue Miguel Anaya Active [place] 8 / R53.83(ICD-10) [facility] Hospital Repository Unknown D64.9 - Anemia, Miguel Anaya Active [place] 8 unspecified / Community D64.9(ICD-10) Hospital Repository Unknown I10 - Essential AnayaMiguel ramirez Active [place] 8 (primary) hypertension Community / I10(ICD-10) Hospital Repository Unknown E78.5 - AnayaMiguel ramirez Active [place] 8 Hyperlipidemia, Community unspecified / Hospital E78.5(ICD-10) Repository Unknown I47.2 - Ventricular John Andrade Active [place] 8 tachycardia / Community I47.2(ICD-10) Hospital Repository Unknown R94.31 - Abnormal John Andrade Active [place] 8 electrocardiogram Community [ECG] [EKG] / Hospital R94.31(ICD-10) Repository Unknown R55 - Syncope and John Andrade Active [place] [facility] collapse / R55(ICD-10) [facility] Hospital Repository Unknown R11.2 - Nausea with Robbins, Active [place] 8 vomiting, unspecified [place] Community / R11.2(ICD-10) Hospital Repository Active Unknown / UNK(Unknown) CAROLE VELASQUEZ Active [address] Repository PROCEDURES PROCEDURES No Procedure Records FoundRESULTS RESULTS SURGERY VISIT REPORT Observed: 09/02/2018 Status: F Source: [place] 2:09 PM [facility] REPOSITORY [facility] [address] [place] [address]. [address] [place] [address] OFFICE VISIT Date of Service: 09/02/18 MR#: [id number] Acct: [id number] Name: JESSICA HAYDEN Rep #: [id number] : 1935 Provider: JEAN Mohamud Age/Sex: 83/F Location: [facility] [place] [place] Status: Signed Intake Intake Visit Reasons: RIGHT HIP Chief Complaint: FTT Allergies No Known Allergies Allergy (Verified 04/24/18 15:19) Medications Ranitidine [Zantac] 150 mg PO BID 05/15/13 [History Confirmed 06/19/18] Acetaminophen [Tylenol Extra Strength] 500 - 1,000 mg PO Q8H PRN 10/11/16 [History Confirmed 06/19/18] alendronate 70 mg tablet 70 mg PO TU 02/18/18 [History Confirmed 06/19/18] Ascorbic Acid [Vitamin C] 500 mg PO DAILY@0800 04/24/18 [History Confirmed 04/24/18] Ondansetron [Zofran Odt] 4 mg PO Q8H PRN PRN 04/24/18 [History Confirmed 06/19/18] Albuterol Aerosols [Ventolin Aerosols] 2.5 mg INHALATION Q4H PRN PRN vial.neb. 04/30/18 [Rx Confirmed 06/19/18] Ascorbic Acid [Vitamin C] 500 mg PO DAILY@0800 tab 04/30/18 [Rx] Aspirin E.C. [Ecotrin] 81 mg PO DAILY@0800 tab 04/30/18 [Rx Confirmed 06/19/18] Atorvastatin Calcium [Lipitor] 20 mg PO QHS tab 04/30/18 [Rx Confirmed 06/19/18] Calcium Carb/Vitamin D [Os-Wiley 500MG + D] 1 tab PO DAILYCM tab 04/30/18 [Rx Confirmed 06/19/18] Ensure Enlive 120 ml PO 4X/DAY liquid 04/30/18 [Rx] Ergocalciferol [Vitamin D] 50,000 unit PO MoFr cap 04/30/18 [Rx] Guaifenesin [Mucinex] 600 mg PO BID PRN tab 04/30/18 [Rx Confirmed 06/19/18] Losartan Potassium [Cozaar] 25 mg PO DAILY tab 04/30/18 [Rx Confirmed 06/19/18] Menthol/Lanolin/Calamine/Znox [Calmoseptine Ointment] 1 applic TOPICAL BID tube 04/30/18 [Rx] Midodrine HCl [Proamatine] 2.5 mg PO TID tab 04/30/18 [Rx Confirmed 06/19/18] Multivitamins,Therapeutic [Multivitamin] 1 tab PO DAILY@0800 tab 04/30/18 [Rx Confirmed 06/19/18] diltiazem CD 120 mg capsule,extended release 24 hr 120 mg PO DAILY 05/31/18 [History Confirmed 06/19/18] polysaccharide iron complex 150 mg iron capsule 150 mg PO DAILY cap 06/19/18 [History Confirmed 06/19/18] vit D3-folic acid-vit B2-B6-B12 2,000 unit-800 mcg-0.32 mg tablet 1 tab PO QWEEK tab 06/19/18 [History Confirmed 06/19/18] Subjective Details: Today in the office Jessica is here for recheck following right hip arthroplasty. Patient however states that she is not sure why she is here and asked if there was a problem with something. She states that she did not have any problem so is not sure why she is here today. Objective Details: Patient does have evident signs of some dementia asking multiple times why she is here where her daughter is even after both of these questions were answered several times. She is not in any distress however today. On physical exam patient has good skin healing without any signs of infection and minimal scarring. Patient's motion is very good having good flexion and extension and no discomfort with this range of motion as well as with resistance. She has some minimally decreased internal and external rotation as to be expected post arthroplasty. She has a negative heel strike here in office today. Patient transfers from seated to standing very easily without pain or discomfort. She even takes several steps walking without any pains. She has no other concerning abnormalities at this time. Assessment AND Plan Problems 1. Orthopedic aftercare for healing pathologic hip fracture M84.459D 2. Closed fracture of right hip with routine healing, subsequent encounter S72.001D 02/21/18 OR w/ R hip hemiarthroplasty per Dr. Cabezas Plan At this time patient is doing very well post right hip hemiarthroplasty. She has good healing of the skin without signs of infection or inflammation. Her range of motion is good and her strength is very good as well. She transfers easily and does have pretty normal gait for a few steps. She has no apparent signs of pain with range of motion with and without resistance, palpation, or gait. So at this time patient appears to doing very well and is able to participate in activities as tolerated. I do think she should be gait with modified assist as well as transfers with modified assist having somebody present at all times for her dementia almost as much as for her hip. They are to continue to her monitor her incision site and notify of any erythema, increasing swelling, increasing pain or any other abnormal symptoms or signs. Orders Orders: Coding Level of Care Code Global Post Op Diagnoses Orthopedic aftercare for healing pathologic hip fracture M84.459D Closed fracture of right hip with routine healing, subsequent encounter S72.001D Encounter type: subsequent encounter Fracture healing: with routine healing 09/02/18 [id number] <Electronically signed by Dejan PENA> Date Dejan PENA Cosigner Signature: Date (if applicable) CC: HIP, UNI W/ PELVIS Observed: 09/02/2018 Status: F Source: [place] 2-3 VIEWS 11:28 AM [facility] REPOSITORY [facility] Services [address] [place] [address] HIP, UNI W/ Pelvis 2-3 Views MR#: [id number] Acct: [id number] Name: JESSICA HAYDEN Rep #: [id number] : 1935 F 83 From: Ricardo Lozano DO PCP: Carole Velasquez MD Status: REG CLI Study: HIP, UNI W/ Pelvis 2-3 Views Date of Exam: 09/02/18 Exam# [id number] Ordering Dr: Dejan Mohamud STUDY: X-RAY - PELVIS AND RIGHT HIP REASON FOR EXAM: Female, 83 years old. Follow-up fracture. TECHNIQUE: 3 views of the pelvis and hip. COMPARISON: Pelvis and right hip, July 12, 2018. FINDINGS: There is a non-specific bowel gas pattern. Normal visualized soft tissue structures. There are multiple calcified phleboliths. Normal bilateral iliac wings, sacroiliac joints and visualized sacrum. Normal bilateral superior and inferior pubic rami. There are degenerative changes of the pubic symphysis with articular narrowing and sclerosis. Normal bilateral ischial tuberosities. Stable left hip. Again seen is a right hip arthroplasty. There is no fracture or loosening from the underlying bone. There is no major interval change when compared to previous examination. RAD/HIP, UNI W/ Pelvis 2-3 Views IMPRESSION: Stable right hip replacement. 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 ORTHOPEDIC VISIT Observed: 07/03/2018 Status: F Source: [place] REPORT 9:52 AM [facility] [address] [place] [address] OFFICE VISIT Date of Service: 07/02/18 MR#: [id number] Acct: [id number] Name: JESSICA HAYDEN Rep #: [id number] : 1935 Provider: JEAN Mohamud Age/Sex: 82/F Location: [facility] [place] [place] Status: Signed Intake Intake Visit Reasons: RIGHT HIP Chief Complaint: FTT Is patient in pain?: No Allergies No Known Allergies Allergy (Verified 04/24/18 15:19) Medications Ranitidine [Zantac] 150 mg PO BID 05/15/13 [History Confirmed 06/19/18] Acetaminophen [Tylenol Extra Strength] 500 - 1,000 mg PO Q8H PRN 10/11/16 [History Confirmed 06/19/18] alendronate 70 mg tablet 70 mg PO TU 02/18/18 [History Confirmed 06/19/18] Ascorbic Acid [Vitamin C] 500 mg PO DAILY@0800 04/24/18 [History Confirmed 04/24/18] Ondansetron [Zofran Odt] 4 mg PO Q8H PRN PRN 04/24/18 [History Confirmed 06/19/18] Albuterol Aerosols [Ventolin Aerosols] 2.5 mg INHALATION Q4H PRN PRN vial.neb. 04/30/18 [Rx Confirmed 06/19/18] Ascorbic Acid [Vitamin C] 500 mg PO DAILY@0800 tab 04/30/18 [Rx] Aspirin E.C. [Ecotrin] 81 mg PO DAILY@0800 tab 04/30/18 [Rx Confirmed 06/19/18] Atorvastatin Calcium [Lipitor] 20 mg PO QHS tab 04/30/18 [Rx Confirmed 06/19/18] Calcium Carb/Vitamin D [Os-Wiley 500MG + D] 1 tab PO DAILYCM tab 04/30/18 [Rx Confirmed 06/19/18] Ensure Enlive 120 ml PO 4X/DAY liquid 04/30/18 [Rx] Ergocalciferol [Vitamin D] 50,000 unit PO MoFr cap 04/30/18 [Rx] Guaifenesin [Mucinex] 600 mg PO BID PRN tab 04/30/18 [Rx Confirmed 06/19/18] Losartan Potassium [Cozaar] 25 mg PO DAILY tab 04/30/18 [Rx Confirmed 06/19/18] Menthol/Lanolin/Calamine/Znox [Calmoseptine Ointment] 1 applic TOPICAL BID tube 04/30/18 [Rx] Midodrine HCl [Proamatine] 2.5 mg PO TID tab 04/30/18 [Rx Confirmed 06/19/18] Multivitamins,Therapeutic [Multivitamin] 1 tab PO DAILY@0800 tab 04/30/18 [Rx Confirmed 06/19/18] diltiazem CD 120 mg capsule,extended release 24 hr 120 mg PO DAILY 05/31/18 [History Confirmed 06/19/18] polysaccharide iron complex 150 mg iron capsule 150 mg PO DAILY cap 06/19/18 [History Confirmed 06/19/18] vit D3-folic acid-vit B2-B6-B12 2,000 unit-800 mcg-0.32 mg tablet 1 tab PO QWEEK tab 06/19/18 [History Confirmed 06/19/18] PFSH Medical History Dizziness (Chronic) Closed right hip fracture (Chronic) Osteoporosis (Chronic) Hypertension (Chronic) Dyslipidemia (Chronic) Near syncope (Acute) Malnutrition (Chronic) Anemia (Chronic) Premature atrial contractions (Chronic) Hyperlipidemia (Chronic) Paroxysmal atrial fibrillation (Chronic) Syncope and collapse (Acute) Near syncope (Acute) Dementia (Chronic) Aortic valve disorder (Chronic) HTN (hypertension) (Chronic) Premature ventricular contraction (Acute) TIA (transient ischemic attack) (Acute) BPPV (benign paroxysmal positional vertigo) (Chronic) History of cerebellar ataxia (Chronic) Surgical History h/o right hip surgery (Acute) History of cataract surgery (Resolved) Family History Sister Diabetes Daughter Atrial fibrillation Social History Smoking Status: Never smoker alcohol intake: never substance use type: does not use HPI RIGHT HIP: Details: JESSICA HAYDEN is a 82 year old F here today for f/u right hip fracture from February. She has no pains and really does not know why she is here today. She states that it is her daughter that needs to see the doctor and not heard. She is currently doing therapy without any problems. She transfers from the chair and bears weight without any pains or difficulties. Ortho Exam Right Hip Skin: Yes healed Hip: absent soft tissue swelling, absent TTP Greater Troch Special Tests: No pain with log roll, No iliopsoas snap Homans Sign: No HIP: Patient is currently seated in her wheelchair for examination. She has no tenderness on palpation of the right hip. She has very good flexion while seated and pretty good extension (examined when she stood up) of the hip without any pains. She has no pains and pretty good strength with resisted flexion and extension. She does have some slightly reduced internal and external rotation of hip at the same time there is no pains with these movements. She has a negative heel strike. Assessment AND Plan Problems 1. Orthopedic aftercare for healing pathologic hip fracture M84.459D 2. Closed fracture of right hip with routine healing, subsequent encounter S72.001D 02/21/18 OR w/ R hip hemiarthroplasty per Dr. Cabezas Plan Today in office, patient denies having any pain in the hip again not really even knowing why she is there today. She has very good motion of the hip today without any pain with movement. She goes from seated in the wheelchair to standing very easily without any pain or problem. She has no tenderness on palpation of the hip or with active motion of the hip. Again there is some minor decrease in internal and external rotation at the same time no pains. Negative heel strike. Patient is to continue in physical therapy at this time using universal precautions for hip arthroplasty at all times. Orders Orders: Plan Detail Follow Up 2 Months Coding Level of Care Code Off vis,est,level 3 Diagnoses Orthopedic aftercare for healing pathologic hip fracture M84.459D Closed fracture of right hip with routine healing, subsequent encounter S72.001D Encounter type: subsequent encounter Fracture healing: with routine healing 07/03/18 0952 <Electronically signed by Dejan PENA> Date Dejan PENA Cosigner Signature: Date (if applicable) CC: HIP, UNI W/ PELVIS Observed: 07/02/2018 Status: F Source: [place] 2-3 VIEWS 10:49 AM [facility] REPOSITORY [facility] Imaging Services [address] [place] [address] HIP, UNI W/ Pelvis 2-3 Views MR#: [id number] Acct: [id number] Name: JESSICA HAYDEN Rep #: [id number] : 1935 F 82 From: Jeyson Zavala MD PCP: Carole Velasquez MD Status: REG CLI Study: HIP, UNI W/ Pelvis 2-3 Views Date of Exam: 07/02/18 Exam# [id number] Ordering Dr: Dejan Mohamud STUDY: X-RAY - RIGHT HIP REASON FOR EXAM: Female, 82 years old. Status post right hip replacement TECHNIQUE: 2 views of the hip. AP pelvis. COMPARISON: 03/07/2018 FINDINGS: Degenerative narrowing with subchondral sclerosis of the pubic symphysis. Similar mild degenerative changes at the left hip. Left hip replacement is in stable, radiographic alignment. Normal visualized superior and inferior pubic rami and ischial tuberosities. RAD/HIP, UNI W/ Pelvis 2-3 Views IMPRESSION: Stable right hip replacement. Degenerative changes. Electronically Signed: Jeyson Zavala MD at 19:10 EST , Service support , CC: JEAN Mohamud; Carole Velasquez MD Tennis Ball Cover Cementer: Signed DISCHARGE SUMMARY Observed: 05/20/2018 Status: F Source: [place] 11:12 AM [facility] REPOSITORY [facility] Medical Records Department [address] [place] [address] Discharge Summary 04/30/18 1420 MR#: [id number] Acct: [id number] Name: JESSICA HAYDEN Rep #: [id number] : 1935 82 From: Lorenza Bryan MD PCP: Carole Velasquez MD Status: DIS RAJEEV Y Location: [place] [address] ADDENDUM by Lorenza Bryan MD on 05/20/18 at 1112 Code Visit Patient seen and examined on day on discharge. Physical findings are as follows: General: Alert, Oriented x3, Cooperative HEENT: Atraumatic, PERRLA, EOMI, Normocephalic Neck: Supple, No JVD, Negative Carotid Bruits Lungs: Clear to auscultation, Normal air movement Cardiovascular: Regular rate, Regular Rhythm, Normal S1, Normal S2, No murmurs Abdomen: Bowel Sounds Present, Soft, Non Tender, Non-Distended Extremities: No edema, Capillary Refill Less than 3 Seconds Skin: No rashes, No breakdown Musculoskeletal: No Tenderness to Palpation of Joints or Extremities, Arthritic Changes, Muscle Wasting Neurological: Cranial nerves II-XII grossly intact Psych/Mental Status: Normal Affect, Appropriate 05/20/18 1112 <Electronically signed by Lorenza Bryan MD> Date Lorenza Bryan MD cc: Lorenza Bryan MD; Carole Velasquez MD * Signed Discharge Date and Diagnosis Date of Admission: 04/24/18 Date of Discharge: 04/30/18 - Primary Discharge Diagnosis Active and Suspected Problems (This Medical Record has been edited. Action required.) Debility (Acute) Weakness (Acute) Failure to thrive (Acute) Orthostatic hypotension Dizziness Severe protein energy malnutrition Acute bronchitis - Secondary Discharge Diagnosis Chronic Problems (This Medical Record has been edited. Action required.) Dizziness (Chronic) Closed right hip fracture (Chronic) 02/21/18 OR w/ R hip hemiarthroplasty per Dr. Cabezas Osteoporosis (Chronic) Hypertension (Chronic) Dyslipidemia (Chronic) Malnutrition (Chronic) Anemia (Chronic) Premature atrial contractions (Chronic) Hyperlipidemia (Chronic) Paroxysmal atrial fibrillation (Chronic) Dementia (Chronic) Aortic valve disorder (Chronic) HTN (hypertension) (Chronic) Hospital Course and Treatment Imaging Results: Clinical Impression(s) from Imaging Studies Brain CT 04/24/18 15:36 IMPRESSION: No acute intracranial process. Electronically Signed: Sudarshan Wade at 16:31 EDT Tel , Service support , Chest X-Ray 04/24/18 15:36 IMPRESSION: No acute cardiopulmonary process. Electronically Signed: Sudarshan Wade at 16:33 EDT Tel , Service support , Chest X-Ray 04/28/18 15:51 IMPRESSION: Normal x-ray examination of the chest. Electronically Signed: Bev Soria MD at 16:56 EDT Tel , Service support , None Operations: None, - Procedures: None Summary of Care Provided: 82-year-old female with recent history of fall and subsequent right hip replacement, recent history of pneumonia, is admitted with progressive weakness and dizziness. Lives at home with her daughter, her daughter states that this is her fourth admission since February when she had hip replacement. She found the patient to be progressively weak and short of breath. Work-up in the hospital has been negative for an acute source of infection as well as pneumonia. Chest x-ray 2 have been negative. Patient remained off oxygen, received breathing treatments as needed. She was found to be orthostatic for which she received IV fluids. She has chronic dizziness for which she has a 30 day event monitor and is following up with Dr. Canseco. She was seen by physical and Occupational Therapy. She was discharged to a fdc facility. Discussed patient's care in detail with daughter at bedside and the other daughter Shameka on phone. Family had wanted hospice care. Hospice team saw patient and did not accept patient because she did not have an active diagnosis. She will have palliative care on discharge to the longterm. Discharge Diet: 2000 mg Sodium Diet Discharge Activity: Return to Normal Activity Home Medications: Medications to take at Discharge Ranitidine [Zantac] 150 mg PO BID 05/15/13 Vit D3/Folic Acid/B2/B6/B12 [Folgard Tablet] 1 tab PO MO 05/15/13 Acetaminophen [Tylenol Extra Strength] 500 - 1,000 mg PO Q8H PRN 10/11/16 alendronate 70 mg tablet 70 mg PO TU 02/18/18 Ascorbic Acid [Vitamin C] 500 mg PO DAILY@0800 04/24/18 Iron Polysaccharide Complex [Ferrex 150] 150 mg PO DAILYCM 04/24/18 Ondansetron [Zofran Odt] 4 mg PO Q8H PRN PRN 04/24/18 Albuterol Aerosols [Ventolin Aerosols] 2.5 mg INHALATION Q4H PRN PRN vial.neb. 04/30/18 Ascorbic Acid [Vitamin C] 500 mg PO DAILY@0800 tablet 04/30/18 Aspirin E.C. [Ecotrin] 81 mg PO DAILY@0800 tablet 04/30/18 Atorvastatin Calcium [Lipitor] 20 mg PO QHS tablet 04/30/18 Calcium Carb/Vitamin D [Os-Wiley 500MG + D] 1 tablet PO DAILYCM tablet 04/30/18 Ensure Enlive 120 ml PO 4X/DAY liquid 04/30/18 Ergocalciferol [Vitamin D] 50,000 unit PO MoFr capsule 04/30/18 Guaifenesin [Mucinex] 600 mg PO BID PRN tablet 04/30/18 Losartan Potassium [Cozaar] 25 mg PO DAILY tablet 04/30/18 Menthol/Lanolin/Calamine/Znox [Calmoseptine Ointment] 1 applic TOPICAL BID tube 04/30/18 Midodrine HCl [Proamatine] 2.5 mg PO TID tablet 04/30/18 Multivitamins,Therapeutic [Multivitamin] 1 tablet PO DAILY@0800 tablet 04/30/18 Primary Care Physician: Carole Velasquez MD [Primary Care Provider] - Please follow up with your Primary Care Physician in: within 2 weeks Disposition: Custodial facility Minutes spent on discharge:: 45 Patient Condition:: Stable Medical Necessity - Tobacco Use Smoking Status: Never smoker Tobacco Use: Non-smoker Meaningful Use Info Meaningful Use Diagnoses (Choose all that apply): None applicable Code Visit Inpatient E AND M: 27888 Disch Hosp 05/03/18 08 <Electronically signed by Lorenza Bryan MD> Date Lorenza Bryan MD Cosigner Signature (if applicable): Date CC: Lorenza Bryan MD; Carole Velasquez MD Signed CNPN Observed: 05/02/2018 Status: COMPLETED Source: [place] 12:00 AM [facility] REPOSITORY Telephone (INTMWS) ZORAIDAJESSICA MA Jocelin ([id number]) 1935 F Date Time Provider Department 05/02/18 CAROLE VELASQUEZ INTMWS During your visit today, we recorded the following information about you: Rebecca Meyersjohn Psr 05/02/2018 9:32 AM Signed Patient's daughter (Sunitha) calling from [phone]. She said that patient is going in a longterm for two weeks. When she comes out, patient will need an Electric Hospital Bed at home. She is asking for Dr. Velasquez's office to call her at number above. Yvonne Diego LPN 05/03/2018 12:19 PM Signed Call to Rudy Helton currently in [facility] for rehab. Patient was in [facility] for pneumonia and bronchitis. [facility] HH in the home last week and called 911 due to patient having diarrhea episodes and was transported to [facility]. Sunitha states that nurse at [facility] told her to contact PCP office for a hospital bed due to patient not being able to lie flat . Palliative care is also being started for patient. Orders pending for hospital bed. CAROLE VELASQUEZ MD 05/08/2018 8:17 AM Signed Ordered the test for printing Cas Mckeon LPN 05/08/2018 8:52 AM Signed Phoned patient's daughter and notified of written rxs and [employer] is the medical supply company they wish for it to go to. Order has been faxed. Cas Singh LPN 05/23/2018 12:30 PM Signed Sunitha calling in and states that cancelling order for hosptial bed through [employer]. States that patient is going to be admitted to longterm for 3-4 months and will be evaluated during that time to see if she can come back home. Allergies As of Date: 05/02/2018 Noted Allergy Reaction MECLIZINE 09/14/2011 14 - Other: See Comments SEASONAL ALLERGIES 02/03/2014 14 - Other: See Comments Comments: pollen Date Reviewed: 04/23/2018 Reviewed by: Bill (Marty) MARTY Riggins - Fully Assessed Reason for Visit: Request Electric Hospital Bed [Other] Primary Visit Diagnosis:Late onset Alzheimer's disease without behavioral disturbance [G30.1, F02.80] Other Visit Diagnoses:Pneumonia due to infectious organism, unspecified laterality, unspecified part of lung [J18.9] Bronchitis [J40] Orthopnea [R06.01] Palliative care patient [Z51.5] Order(s):HOSP BED W MATTR FULL ELECTRIC [[id number]] Order #: [id number] BED SIDE RAILS, HALF LENGTH [[id number]] Order #: [id number] Prescriptions as of 05/02/2018 Sig: SENNOSIDES 8.6 MG-DOCUSATE SO* Take 1 tablet by mouth twice * LOSARTAN 25 MG TABLET Take 25 mg by mouth once олег* FERREX 150 ORAL Take 150 mg by mouth once emil* CHOLECALCIFEROL (VITAMIN D3) * Take 1 capsule by mouth twice* RANITIDINE 150 MG TABLET TAKE 1 TABLET TWICE DAILY for* ATORVASTATIN 20 MG TABLET TAKE 1 TABLET EVERY DAY for c* ALENDRONATE 70 MG TABLET Take 1 tablet by mouth once e* BENZONATATE 100 MG CAPSULE Take 1 capsule by mouth three* Patient not taking: Reported on 04/16/2018 CALCIUM 500 MG TABLET Take 1 tablet by mouth once d* NQTMLICWTHMO-EB-IFCB-MINERALS* Take 1 tablet by mouth once d* ASPIRIN 81 MG TABLET Take 81 mg by mouth once олег* ACETAMINOPHEN 500 MG TABLET Take 500 mg by mouth every 6 * Problem List As Of Date 05/02/2018 Noted Resolved PLANTAR Fasciitis [M72.2] INVALID FOR*01/15/2017 Sprain of foot, unspecified site [S93.609A] INVALID FOR*10/29/2014 Pain in limb [M79.609] INVALID FOR*10/29/2014 Fracture, rib [S22.39XA] INVALID FOR*10/29/2014 Osteoporosis [M81.0] INVALID FOR* More... Hyperlipidemia [E78.5] INVALID FOR* More... Dizziness and giddiness [R42] INVALID FOR* More... Small vessel disease [I99.9] INVALID FOR* More... PVC (premature ventricular contraction) [I49.3] INVALID FOR* More... Hypertension [I10] INVALID FOR* More... Weight loss [R63.4] INVALID FOR* More... Memory deficits [R41.3] INVALID FOR* Dizziness [R42] INVALID FOR* Dementia [F03.90] INVALID FOR* Encounter Status:Closed by CAS MCKEON LPN on 05/08/18 TRANSFER TO [facility] Observed: 04/30/2018 Status: F Source: [facility] 2:20 PM [facility] REPOSITORY [facility] Medical Records Department [address] [place] [address] [place] [address] Transfer to [facility] Care MR#: [id number] Acct: [id number] Name: JESSICA HAYDEN Rep #: [id number] : 1935 82 From: Lorenza Bryan MD PCP: Carole Velasquez MD Status: ADM RAJEEV JESSICA HAYDEN (Patient) (Health Ins. Claim No.) (Day of Discharge to Facility) Certification of patient admission REQUIRED AT TIME OF ADMISSION. I CERTIFY THAT POST-[facility] SERVICES ARE REQUIRED TO BE GIVEN ON AN IN-PATIENT BASIS BECAUSE OF THE ABOVE NAMED PATIENT'S NEED FOR LONG-TERM CARE ON A CONTINUING BASIS FOR THE CONDITION(S) FOR WHICH HE/SHE WAS RECEIVING IN-PATIENT HOSPITAL SERVICES PRIOR TO HIS/HER TRANSFER TO THE [facility]. 04/30/181419 <Electronically signed by Lorenza Bryan MD> Date Lorenza Bryan MD - Diet Regular diet - Routine Orders/Code Status Routine Lab Work: CBC - in 3 days, BMP - in 3 days Code Status: DNRCC - Wound(s) coccyx Wound Type: moisture/ pressure area - Therapies Weight Bearing: Weight bearing as tolerated Extremity Affected:: Bilateral Lower Physical Therapy: Eval and Treat Occupational Therapy: Eval and Treat - Allergies/Procedures Done in Hospital Allergies/Adverse Reactions: Allergies No Known Allergies Allergy (Verified 04/24/18 15:19) Procedures: None - Type of Care/Length of Stay Estimated LOS: Convalescent Care Less Than 30 days Type of Care Needed: Skilled Rehab Potential: Fair Prognosis: Fair - Additional Orders/Day of Discharge Additional Orders: Patient will have palliative care in the [place] Day of Discharge: 04/30/18 - Dietary and Speech Recommendations Dietitian Recommendations/Changes: Will provide magic cup and ensure pudding w/meals. Continue regular diet and ensure w/ medpass. - Follow Up Care Primary Care Physician: Carole Velasquez MD [Primary Care Provider] - Please follow up with your Primary Care Physician in: within 2 weeks 04/30/181419 <Electronically signed by Lorenza Bryan MD> Date Lorenza Bryan MD CC: Carole Velasquez MD; Earle Chambers DO Signed CHEST PA AND LATERAL Observed: 04/28/2018 Status: F Source: [place] 3:52 PM [facility] REPOS[facility] Imaging Services [address] [place] [address] Chest PA and Lateral MR#: [id number] Acct: [id number] Name: JESSICA HAYDEN Rep #: [id number] : 1935 F 82 From: Bev Soria MD PCP: Carole Velasquez MD Status: ADM RAJEEV Study: Chest PA and Lateral Date of Exam: 04/28/18 Exam# [id number] Ordering Dr: Wilfred Reed MD STUDY: X-RAY CHEST REASON FOR EXAM: Female, 82 years old. Cough and congestion. TECHNIQUE: PA and lateral views. COMPARISON: 04/24/2018. FINDINGS: The lungs are clear and expanded. There is no demonstrated pleural abnormality. Normal size heart. Normal mediastinum and theresa. Normal visualized pulmonary arteries. Normal visualized aortic arch and descending thoracic aorta. Normal visualized thoracic spine. Normal visualized ribs, clavicles, and shoulders. There is no demonstrated abnormality of the visualized soft tissue structures of the upper abdomen. RAD/Chest PA and Lateral IMPRESSION: Normal x-ray examination of the chest. Electronically Signed: Bev Soria MD at 16:56 EDT Tel , Service support , CC: Carole Velasquez MD; Wilfred Reed MD Tennis Ball Cover Cementer: Signed BASIC METABOLIC Collected: 04/28/2018 Status: F Source: [place] PRO[place] (BMP) 6:15 AM [facility] REPOSITORY TYPE CODE TESTS RESULT OUT OF RANGE REFERENCE UNITS LAB L501.0100 74-106 mg/dL Normal GLU 95 Result Comment: Please note revised GLUCOSE reference range effective 2017. LAB L501.1000 7-18 mg/dL Normal BUN 18 LAB L501.1100 0.55-1.02 mg/dL Low CREAT,SERUM 0.44 Result Comment: The validity of the calculated GFR AND GFRAA in patients over 70 years has not been determined. Clinical correlation is essential. LAB L501.1110 >60 mL/min Normal EST GFR 145 Result Comment: Non- GFR Calc LAB L501.1115 >60 mL/min Normal EST GFR - AA 176 Result Comment: GFR Calc LAB L501.1255 ml/min Normal Estimated CRCL 27.52 LAB L501.1300 10-20 RATIO High BUN/CRE 41.0 LAB L501.2200 8.5-10 mg/dL Normal .1 CA 8.5 LAB L501.5300 136-14 mmol/L Normal 5 NA 138 LAB L501.5600 3.5-5. mmol/L Normal 1 K 3.9 LAB L501.5900 98-107 mmol/L Normal CL 102 LAB L501.6100 21.0-3 mmol/L Normal 2.0 CO2 28.0 LAB L501.6200 5-15 Normal GAP 8 Performed By: #### L500.2500 #### [facility] [address] [place], [address] CBC-COMPLETE BLOOD CNT Collected: 04/27/2018 Status: F Source: [place] NO DIFF 7:10 AM [facility] REPOSITORY TYPE CODE TESTS RESULT OUT OF RANGE REFERENCE UNITS LAB L100.1000 4.4-11.0 K/mm3 Normal WBC 5.6 LAB L100.1200 4.2-5.4 M/mm3 Low RBC 3.19 LAB L100.1300 12.0-15.0 g/dl Low HGB 9.2 LAB L100.1400 37-47 % Low HCT 29.7 LAB L100.1500 81-99 fL Normal MCV 93.1 LAB L100.1600 27.0-32.0 pg Normal MCH 28.8 LAB L100.1700 32-36 g/gl Low MCHC 31.0 LAB L100.1810 11.6-14.6 % High RDW CV 15.4 LAB L100.1820 35.1-43.9 fl High RDW SD 52.3 LAB L100.1900 150-450 K/mm3 Normal PLT 324 LAB L100.2000 6.2-12.0 fl Normal MPV 9.7 Performed By: #### L100.0500 #### [facility] [address] [place], [address] BASIC METABOLIC Collected: 04/27/2018 Status: F Source: [place] PRO[place] (BMP) 7:10 AM [facility] REPOSITORY TYPE CODE TESTS RESULT OUT OF RANGE REFERENCE UNITS LAB L501.0100 74-106 mg/dL Normal GLU 96 Result Comment: Please note revised GLUCOSE reference range effective 2017. LAB L501.1000 7-18 mg/dL Normal BUN 14 LAB L501.1100 0.55-1.02 mg/dL Low CREAT,SERUM 0.40 Result Comment: The validity of the calculated GFR AND GFRAA in patients over 70 years has not been determined. Clinical correlation is essential. LAB L501.1110 >60 mL/min Normal EST GFR 160 Result Comment: Non- GFR Calc LAB L501.1115 >60 mL/min Normal EST GFR - AA 193 Result Comment: GFR Calc LAB L501.1255 ml/min Normal Estimated CRCL 27.52 LAB L501.1300 10-20 RATIO High BUN/CRE 34.7 LAB L501.2200 8.5-10 mg/dL Normal .1 CA 8.8 LAB L501.5300 136-14 mmol/L Normal 5 NA 140 LAB L501.5600 3.5-5. mmol/L Normal 1 K 3.8 LAB L501.5900 98-107 mmol/L Normal CL 102 LAB L501.6100 21.0-3 mmol/L Normal 2.0 CO2 30.0 LAB L501.6200 5-15 Normal GAP 8 Performed By: #### L500.2500 #### [facility] [address] [place], [address] 12 LEAD ELECTROCARDIOGRAM Observed: 04/26/2018 Status: F Source: [place] 1:27 PM [facility] REPOSITORY [facility] Cardiovascular Services [address] [place] [address] 12 Lead EKG 04/24/18 1605 MR#: [id number] Acct: [id number] Name: JESSICA HAYDEN Rep #: [id number] : 1935 82 From: Tyson Oviedo MD Attending Dr: Derek MENDOZA,Wilfred Status: ADM RAJEEV Ordering Dr: Ancelmo Bardales DO Date: 04/24/18 Location: MS3 Sex: F C Admitted: 04/24/18 Test Reason : WEAKNESS Blood Pressure : / mmHG Vent. Rate : 097 BPM Atrial Rate : 097 BPM P-R Int : 110 ms QRS Dur : 068 ms QT Int : 354 ms P-R-T Axes : 000 073 070 degrees QTc Int : 449 ms Sinus rhythm with short MS Otherwise normal ECG Confirmed by PREET MENDOZA, TYSON ([id number]), assistant editor SANTIAGO CUTLER ([id number]) on 04/26/2018 1:27:19 PM Referred By: TL Confirmed By:TYSON OVIEDO MD 04/26/18 1327 Date Tyson Oviedo MD CC: Carole Velasquez MD; Wilfred Reed MD; Ancelmo Bardales Signed CBC-COMPLETE BLOOD CNT Collected: 04/26/2018 Status: F Source: [place] NO DIFF 5:28 AM [facility] REPOSITORY TYPE CODE TESTS RESULT OUT OF RANGE REFERENCE UNITS LAB L100.1000 4.4-11.0 K/mm3 Normal WBC 5.4 LAB L100.1200 4.2-5.4 M/mm3 Low RBC 3.10 LAB L100.1300 12.0-15.0 g/dl Low HGB 9.1 LAB L100.1400 37-47 % Low HCT 29.1 LAB L100.1500 81-99 fL Normal MCV 93.9 LAB L100.1600 27.0-32.0 pg Normal MCH 29.4 LAB L100.1700 32-36 g/gl Low MCHC 31.3 LAB L100.1810 11.6-14.6 % High RDW CV 14.8 LAB L100.1820 35.1-43.9 fl High RDW SD 48.5 LAB L100.1900 150-450 K/mm3 Normal PLT 334 LAB L100.2000 6.2-12.0 fl Normal MPV 10.0 Performed By: #### L100.0500 #### [facility] [address] [place], [address] BASIC METABOLIC Collected: 04/26/2018 Status: F Source: [place] PROFILE (BMP) 5:28 AM [facility] REPOSITORY TYPE CODE TESTS RESULT OUT OF RANGE REFERENCE UNITS LAB L501.0100 74-106 mg/dL Normal GLU 99 Result Comment: Please note revised GLUCOSE reference range effective 2017. LAB L501.1000 7-18 mg/dL Normal BUN 8 LAB L501.1100 0.55-1.02 mg/dL Low CREAT,SERUM 0.41 Result Comment: The validity of the calculated GFR AND GFRAA in patients over 70 years has not been determined. Clinical correlation is essential. LAB L501.1110 >60 mL/min Normal EST GFR 158 Result Comment: Non- GFR Calc LAB L501.1115 >60 mL/min Normal EST GFR - AA 191 Result Comment: GFR Calc LAB L501.1255 ml/min Normal Estimated CRCL 27.52 LAB L501.1300 10-20 RATIO Normal BUN/CRE 19.6 LAB L501.2200 8.5-10 mg/dL Normal .1 CA 8.5 LAB L501.5300 136-14 mmol/L Normal 5 NA 143 LAB L501.5600 3.5-5. mmol/L Normal 1 K 3.6 LAB L501.5900 98-107 mmol/L Normal CL 105 LAB L501.6100 21.0-3 mmol/L Normal 2.0 CO2 30.0 LAB L501.6200 5-15 Normal GAP 8 Performed By: #### L500.2500, L501.5200 #### [facility] [address] [facility] [place], [place], [address] MAGNESIUM Collected: 04/26/2018 Status: F Source: [place] 5:28 AM [facility] REPOSITORY TYPE CODE TESTS RESULT OUT OF RANGE REFERENCE UNITS LAB L501.5200 1.6-2.6 mg/dL Normal MG 1.9 Performed By: #### L500.2500, L501.5200 #### [facility] [address] [place], [address] HISTORY AND PHYSICAL Observed: 04/24/2018 Status: F Source: [place] EXAM 5:46 PM [facility] REPOSITORY [facility] Medical Records Department [address] [place] [address] History and Physical 04/24/18 1707 MR#: [id number] Acct: [id number] Name: SATISHJESSICA Rep #: [id number] : 1935 82 From: Christos PENA PCP: Carole Velasquez MD Status: ADM RAJEEV Y Location: [place] [address] ADDENDUM by Coni Moreno on 04/24/18 at 1746 Code Visit ATTENDING PHYSICIAN NOTE: I have seen and examined the patient independently and agree with the assessment, plan, history per Christos Richard as noted. 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 PAF versus Paroxsymal atrial contractions, Dementia unclear type w/ no behavioral disturbance history, GERD, recent admission 04/09/18 with treatment of acute bronchitis with possible bacterial infection, treated with course of abx therapy in addition to ED visit 04/21/18 w/ dizziness and CT head initially concerning for possible intracerebral hemorrhage transferred to [facility] with evaluation unremarkable including MRI/MRA brain/neck with discharge to home 04/23/18 and since continued weakness and debility with difficulty caring for her at home despite daughter and health aid assist. Patient and daughter note ongoing dry cough but this has not worsened and is nonproductive. In the ED work-up included T 98, heart rate initially 105--> 89, BP 127/62, respiratory rate 17, 93% on room air, CBC with WBC 9, hemoglobin 10.1 (baseline 9-10), platelet 421 without left shift, CMP remarkable only for BUN 21, glucose 113, troponin less than 0.015, urinalysis pending currently, CT brain with chronic changes, chest x-ray with chronic changes and no acute findings with improvement from prior. In the ED patient administered normal saline therapy. Labs, Allergies, Home medications, Social Hx, PSurgHx, Family Hx per note below. Admission Review of Systems: CONSTITUTIONAL: No weight loss, fever, chills, + weakness or fatigue. HEENT: Eyes: No visual loss, blurred vision, double vision or yellow sclerae. Ears, Nose, Throat: No hearing loss, sneezing, congestion, runny nose or sore throat. SKIN: No rash or itching, lesions, wounds. CARDIOVASCULAR: No chest pain, chest pressure or chest discomfort, palpitations, edema, orthopnea, syncopal events. RESPIRATORY: + Non-productive cough. No shortness of breath, increased sputum, wheezing, hemoptysis. GASTROINTESTINAL: + anorexia, No nausea, vomiting or diarrhea, abdominal pain, melena, BRBPR. GENITOURINARY: No dysuria, frequency, urgency or retention. NEUROLOGICAL: + Dizziness. No headache, syncope, paralysis, ataxia, numbness or tingling in the extremities, focal weakness, change in bowel or bladder control, seizure. MUSCULOSKELETAL: No muscle, back pain, joint pain or stiffness. HEMATOLOGIC: + anemia, bleeding or bruising. LYMPHATICS: No enlarged nodes. No history of splenectomy. PSYCHIATRIC: + history of depression or anxiety. ENDOCRINOLOGIC: No reports of sweating, cold or heat intolerance. No polyuria or polydipsia. ALLERGIES: No history of asthma, hives, eczema or rhinitis. Admission VS: As noted below. Physical Examination: General: awake, alert, oriented to self, place, recent events, cooperative, seated upright in bed in no apparent distress. Skin: normal color, turgor, no icterus, cyanosis. HEENT: AT/NC, EOMI, PERRLA, mildly dry MM, no JVD noted. Lungs: Diminished BS BL, > bases, mild effort, some dry harsh coughing noted w/ increased effort, no rales, ronchi or wheezing. Heart: Regular rate and rhythm; no gallop, rub audible. Abdomen: soft, thin cachetic habitus, NTTP, ND, normal BS, no HSM. Extremities: no cyanosis, clubbing, BL ankle non-pitting edema. Neurological: patient awake, alert, oriented as noted; cognitive function decreased baseline w/ dementia, currently baseline intact; pupils equally reactive to light and accomodation; cranial nerves II-XII grossly normal, moving all 4 extremities, no focal deficits, strength severely globally decreased. Psychiatric: affect appears flat, fatigued, no acute evidence of depressive or anxiety feelings. 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 PAF versus Paroxsymal atrial contractions, Dementia unclear type w/ no behavioral disturbance history, GERD, recent admission 04/09/18 with treatment of acute bronchitis with possible bacterial infection, treated with course of abx therapy in addition to ED visit 04/21/18 w/ dizziness and CT head initially concerning for possible intracerebral hemorrhage transferred to [facility] with evaluation unremarkable including MRI/MRA brain/neck with discharge to home 04/23/18 and since continued weakness and debility with difficulty caring for her at home despite daughter and health aid assist. (1) Debility, Weakness, Failure to Thrive in Adult: ED work- up included T 98, heart rate initially 105--> 89, BP 127/62, respiratory rate 17, 93% on room air, CBC with WBC 9, hemoglobin 10.1 (baseline 9-10), platelet 421 without left shift, CMP remarkable only for BUN 21, glucose 113, troponin less than 0.015, urinalysis pending currently, CT brain with chronic changes, chest x-ray with chronic changes and no acute findings with improvement from prior. Will admit to PA, will gently hydrate, maintain on fall precautions, obtain PT, OT, CM consultations w/ plan for likely SNF transition. Additional Co-morbidities: (2) Chronic Normocytic Anemia: Admission Hgb 10.1, baseline 9-10 range, stable, Fe panel, ferritin, vitamin 12 and folic acid, maintain on Fe supplementation. 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 (4) Hypertension: Continue home regimen including Diovan w/ hold parameters, PRN hydralazine. (5) Hyperlipidemia: Continue home statin regimen. (6) Recent R Hip Fx: s/p 02/21/18 OR w/ R hip hemiarthroplasty per Dr. Cabezas, maintain on fall precautions, PT, OT, CM. (7) Moderate-Severe Calorie-Protein Malnutrition: Evidenced per habitus, BMI, evidence muscle and fat loss, MVI, nutrition consulted. (8) PAF versus paroxysmal atrial contractions: SR currently, high fall risk, not anticoagulation candidate. (9) Dementia, unclear type w/ no behavioral disturbance history: Frequent re-orientation as needed, not on medication regimen. (10) Recent Bronchitis: Treated for possible bacterial component, since has been fatigued, weak, PRN albuterol. (11)CODE status: Discussed CODE status at length including difference between FULL code, DNR-CCA and DNR-CC status. Following discussions about the differences in these status, confirmed living will and HCPOA (Daughter) in place, requested FULL CODE status. Advanced Care Planning Face to Face Time: 16 minutes. OBSV E AND M: [id number] Initial observation care L3 Procedures: [id number] Advncd Care Plan 30 Min 04/24/18 1746 <Electronically signed by Coni Moreno > Date Josh, Coni Nicholas cc: JEAN Richard; Coni Moreno; Carole Velasquez MD * Signed Problem List (1) Debility Status: Acute (2) Hypertension Status: Chronic (3) Dyslipidemia Status: Chronic (4) Malnutrition Status: Chronic Qualifiers: (5) Anemia Status: Chronic Qualifiers: (6) Hyperlipidemia Status: Chronic Qualifiers: (7) Paroxysmal atrial fibrillation Status: Chronic (8) Dementia Status: Chronic Qualifiers: (9) HTN (hypertension) Status: Chronic Qualifiers: History of Present Illness Date of Admission: 04/24/18 Chief Complaint: weakness The patient is a 82 year old F's medical history as above who presented to the emergency room by bobad today for severe weakness. She was recently admitted to [facility] after a fall on Sunday. She at that time was brought to the emergency room and there was concern for an aneurysm on the CT so she was transferred for aneurysm workup. She underwent MRI and MRA and was told there was no aneurysm, no stroke. She was discharged home in a very weakened state. She returned home from the hospital yesterday. Since being home she has not been able to get out of bed at all. She is unable to sit up on her own. Her home health care nurse came to visit today and was unable to get her up on her own, required the assistance of the patient's daughter as well. When they were able to get her up she was found covered in stool. She had one episode of diarrhea this morning which was the incontinence. She also recently had pneumonia and still has a cough from this, nonproductive. She also has no fever or white count at this time. She is not short of breath. She does not feel like she has any dysuria or abdominal pain. No nausea or vomiting. Daughter is open to the idea of placement in fdc temporarily for strengthening before returning back home. [] Past Medical History Past Medical History (Chronic Problems): Chronic Problems (This Medical Record has been edited. Action required.) Dizziness (Chronic) Closed right hip fracture (Chronic) 02/21/18 OR w/ R hip hemiarthroplasty per Dr. Cabezas Osteoporosis (Chronic) Hypertension (Chronic) Dyslipidemia (Chronic) Malnutrition (Chronic) Anemia (Chronic) Premature atrial contractions (Chronic) Hyperlipidemia (Chronic) Paroxysmal atrial fibrillation (Chronic) Dementia (Chronic) Aortic valve disorder (Chronic) HTN (hypertension) (Chronic) Medical History: Medical History (This Medical Record has been edited. Action required.) Dizziness (Chronic) R42 Closed right hip fracture (Chronic) S72.001A 02/21/18 OR w/ R hip hemiarthroplasty per Dr. 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 Allergies No Known Allergies Allergy (Verified 04/24/18 15:19) Home Medications: Ambulatory Orders Medication Instructions Recorded Atorvastatin Calcium [Lipitor] 20 mg PO QHS 05/15/13 Ranitidine [Zantac] 150 mg PO BID 05/15/13 Vit D3/Folic Acid/B2/B6/B12 1 tab PO MO 05/15/13 Surgical History: Surgical History (This Medical Record has been edited. Action required.) h/o right hip surgery History of cataract surgery Z98.49 Surgical History: - - Cataract surgery, 02/21/18 OR w/ R hip hemiarthroplasty per Dr. Cabezas. 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 Action required.) Sister Diabetes Daughter Atrial fibrillation History Items: Cancer Paternal Family History: Family History (This Medical Record has been edited. Action required.) Sister Diabetes Daughter Atrial fibrillation History Items: Cancer Sibling Family History: Family History (This Medical Record has been edited. Action required.) Sister Diabetes Daughter Atrial fibrillation History Items: No pertinent history Review of Systems Constitutional: Reports: Weakness. Denies: Chills, Fever, Weight Change HEENT: Denies: Head Aches, Sinus Congestion, Sinus Drainage Cardiovascular: Denies: Chest Pain, Palpitations Respiratory: Reports: Cough. Denies: Shortness of breath at rest, Sputum production Gastrointestinal: Denies: Abdominal Pain, Nausea, Vomiting Genitourinary: Denies: Dysuria Musculoskeletal: Denies: Joint Pain, Joint Tenderness Skin: Denies: Rash, Wounds Neurological: Denies: Numbness, Tingling, Focal weakness Psychiatric: Denies: Anxiety, Depression, Homicidal Ideations, Suicidal Ideations Hematologic/ Lymphatic: Denies: Easy Bruising, Easy Bleeding VTE Information - Inpt Only VTE Present on Admission: No VTE Mechan Device Prophylaxis: None VTE Pharm Prophylaxis ordered?: Yes Patient Problems: Active and Suspected Problems (This Medical Record has been edited. Action required.) Debility (Acute) - Physical Exam General: Alert, Oriented x3, Cooperative, - - Cachectic HEENT: Atraumatic, PERRLA, EOMI, Normocephalic Neck: Supple, No JVD, Negative Carotid Bruits Lungs: Rales - Rales bilateral bases Cardiovascular: Regular rate, No murmurs Abdomen: Bowel Sounds Present, Soft, Non Tender Extremities: No edema, Capillary Refill Less than 3 Seconds Skin: No rashes, No breakdown Musculoskeletal: No Tenderness to Palpation of Joints or Extremities Neurological: Cranial nerves II-XII grossly intact Psych/Mental Status: Normal Affect, Appropriate, Alert and oriented to time, place, person, mood and affect Vital Signs Temp Pulse Resp BP Pulse Ox 98.0 F 105 H 17 105/62 93 04/24/18 15:19 04/24/18 15:19 04/24/18 15:19 04/24/18 15:19 04/24/18 15:19 Oxygen Delivery Method Room Air Weight: 90 lb Body Mass Index (BMI) 16.5 Finger Stick Blood Glucose 131 Laboratory Tests Past 24 Hrs WBC 9.0 RBC 3.47 L Hgb 10.1 L Hct 32.8 L MCV 94.5 MCH 29.1 MCHC 30.8 L Assessment/Plan All Active Problems (This Medical Record has been edited. Action required.) Debility (Acute) Acute bronchitis (Acute) Pneumonia (Acute) Sepsis (Acute) Near syncope (Acute) Syncope and collapse (Acute) Near syncope (Acute) 1. Debility-patient with worsening weakness after past hospitalization, now unable to get out of bed without the assistive to. Found incontinent at home. She will be admitted with physical therapy occupational therapy consult with plan for transition to fdc care she is unsafe to return home at this time. CT of the brain is negative. Urinalysis. 2. Dementia-complicating above. Check TSH and B12 3. Recent pneumonia-chronic cough-Mucinex, aerosols, O2 as needed, incentive spirometer. Chest x-ray is negative. 4. Severe protein calorie malnutrition complicating above- dietitian consult and dietary supplementation. 5. History of paroxysmal atrial fibrillation-currently sinus rhythm rate controlled. She is not on oral anticoagulation and would be a poor candidate given her overall debility and dementia. 6. Hypertension-stable 7. Osteoporosis-on bisphosphonate, complicating above, continue vitamin D and calcium supplementation. 8. Hyperlipidemia-on statin 9. Chronic normocytic anemia-appears to be near baseline. As above check B12, check iron, TIBC, ferritin. DVT prophylaxis: Lovenox Discharge planning: shelter. This patient was seen by Christos Richard PA-C under the supervision of Doctor Josh. 04/24/18 6805 <Electronically signed by Christos PENA> Date Christos PENA 04/24/18 1732<Electronically signed by Coni Moreno > Cosigner Signature: Date (if applicable) Coni Moreno CC: JEAN Richard; Coni Moreno; Carole Velasquez MD Signed URINALYSIS, COMPLETE Collected: 04/24/2018 Status: F Source: [place] 5:23 PM [facility] REPOSITORY Order Comment: How was Urine Obtained? CATHETER SPECIMEN TYPE CODE TESTS RESULT OUT OF RANGE REFERENCE UNITS LAB L400.3000 Yellow COLOR Normal Yellow LAB L400.3050 Clear Normal CLARITY Clear LAB L400.3200 Normal mg/dl Normal GLUCOSE, UR Normal LAB L400.3300 Negative mg/dL High BILIRUBIN URINE 1 Result Comment: COLOR OF URINE MAY AFFECT DIPSTICK RESULTS. LAB L400.3400 Negative mg/dl Normal KETONE UR Negative LAB L400.3465 1.002-1.030 Normal SP.GR. DIPSTX 1.010 LAB L400.3550 5.0 - 8.0 pH Normal UR 7.0 LAB L400.3600 Negative mg/dl High PROT DIPSTX 30 LAB L400.3700 Normal mg/dl High UROBILI 8 LAB L400.3750 Negative Normal NITRITE UR Negative LAB L400.3780 Negative /ul High OCCULT 10 BLOOD-UR LAB L400.3800 Negative /ul High LEUK ESTERASE 500 LAB L400.4050 0-5 /hpf Normal WBC 0-5 SEEN LAB L400.4100 0-5 /hpf Normal RBC-UA 0 SEEN LAB L400.4150 5-10 /hpf Normal SQUAM EPI 10-25 SEEN LAB L400.4300 None Seen /hpf Normal BACTERIA 0 SEEN LAB L400.4350 <or=2+ /hpf Normal MUCUS, URINE 0 SEEN Performed By: #### L400.0001 #### [facility] [address] [place], [address] EMERGENCY DEPARTMENT Observed: 04/24/2018 Status: F Source: [place] SUMMARY 5:18 PM [facility] REPOSITORY [facility] Medical Records Department [address] [place] [address] Emergency Department Summary 04/24/18 1539 MR#: [id number] Acct: [id number] Name: SATISHJESSICA Rep #: [id number] : [id number] 82 From: Ancelmo Damon PCP: Carole Velasquez MD Status: REG ER - ER Visit Summary Date of Service: 04/24/18 Chief Complaint: Weakness History of Present Illness: The patient is a 82 F brought by EMS from home with generalized weakness. No current family present. Reports fall in February with right hemiarthroplasty by Dr. Cabezas. History of osteoporosis. Since then review records as developed pneumonia, this was seen in the March. Patient seen 3 days ago for evaluation of dizzy lightheaded symptoms. She has had syncope in the near recent past. She does have a cardiac technologist on. There was concern of potential artifact versus intracranial hemorrhage [address] she was sent to [facility]. Patient states she has been home since. States cough today. Nonproductive. No chest pains. No nausea or vomiting. Denies urinary symptoms. Denies diarrhea. Per discussion with EMS has been multiple call outs to the house for evaluation of the patient. Physical Examination: General: Alert and oriented 3, no acute distress HEENT: Normocephalic, atraumatic. Dry mucosa membranes Neck: supple, nontender. Cardiovascular: Regular tachycardic rate 104 and rhythm, no murmurs Respiratory: Normal breath sounds, symmetric, no distress Abdomen: Soft, nontender, nondistended Extremities: Nontender, no edema, pulses intact 4 Neuro: no focal neurological deficits. Test Results: CT head negative. Chest x-ray negative. Labs W BC is 9, he will 10.1. Creatinine 0.57. Liver enzymes normal. Troponin negative. EKG sinus rate of [address] changes. Isolated T wave inversion in aVL unchanged from previous. UA pending. Emergency Department Course and Treatment: Patient turns which generalized weakness. Denies any symptoms. Slightly dry mucosa membranes. She is given IV fluids. Workup initiated stable current urine is pending. Daughter did later arrive discussed with her, she was discharged yesterday from [facility] with a negative MRI and MRA of her head. She reports does have manager home healthcare twice a week, however took both of them to move the patient, she is unable to take care of her at this time. Spoke with hospitalist, Dr. Moreno, who evaluate patient ED will admit for observations. Treatment Plan: [] Disposition: Admission Impression: 1. Weakness 2. Failure to thrive This note was generated with Any.DO dictation software. It may contain incorrect words, spelling, and punctuation that were not noted in review of the chart prior to signing ED Disposition - Plan for ED Patient: Disposition: Acute Care Hospital [facility] Chief Complaint: Weakness Diagnosis: Weakness, Failure to thrive Referrals: Carole Velasquez MD [Primary Care Provider] - What to do if you have Problems For any increased pain, shortness of breath, bleeding, nausea or vomiting, chest pain, or any unexpected problems, contact your Primary Care Provider. Call [facility] ([phone]) or report to the closest Emergency Room. Call 911 if necessary. 04/24/18 1718 <Electronically signed by Ancelmo Damon> Date Ancelmo Damon Cosigner Signature (If Indicated): Date CC: Carole Velasquez MD VITAMIN B12 Collected: 04/24/2018 Status: F Source: [place] 4:06 PM [facility] REPOSITORY TYPE CODE TESTS RESULT OUT OF REFERENCE UNITS RANGE LAB L503.0105 211-911 pg/mL High Vitamin B12 929 Performed By: #### L503.0105 #### [place] [facility] [address] [place], [address] THYROID STIM HORMONE Collected: 04/24/2018 Status: F Source: [place] ([place]) 4:06 PM [facility] REPOSITORY TYPE CODE TESTS RESULT OUT OF RANGE REFERENCE UNITS LAB L501.9520 0.358-3.74 uIU/mL Normal TSH 1.79 Performed By: #### L501.9520, L503.6030, L503.6550 #### [facility] [address] [place], [address] IRON+IRON BINDING Collected: 04/24/2018 Status: F Source: [facility] 4:06 PM [facility] REPOSITORY TYPE CODE TESTS RESULT OUT OF RANGE REFERENCE UNITS LAB L503.6075 250-450 ug/dL Low TIBC 220 LAB L503.6150 50-170 ug/dL Low IRON 23 Result Comment: Slight Hemolysis, Result may be falsely increased. LAB L503.6250 15.0-55.0 % IRON Low SATURATION 10.5 Performed By: #### L501.9520, L503.6030, L503.6550 #### [facility] [address] [place], [place], [id number] FERRITIN Collected: 04/24/2018 Status: F Source: [place] 4:06 PM [facility] REPOSITORY TYPE CODE TESTS RESULT OUT OF REFERENCE UNITS RANGE LAB L503.6550 8-252 ng/mL High FERRITIN 429 Performed By: #### L501.9520, L503.6030, L503.6550 #### [facility] [address] [place], [place], [id number] PHOSPHORUS Collected: 04/24/2018 Status: F Source: [place] 4:06 PM [facility] REPOSITORY TYPE CODE TESTS RESULT OUT OF RANGE REFERENCE UNITS LAB L501.2300 2.5-4.9 mg/dL Normal PHOS 4.4 Performed By: #### L501.2300, L501.5200 #### [facility] [address] [place], [address] MAGNESIUM Collected: 04/24/2018 Status: F Source: [place] 4:06 PM [facility] REPOSITORY TYPE CODE TESTS RESULT OUT OF RANGE REFERENCE UNITS LAB L501.5200 1.6-2.6 mg/dL Normal MG 2.2 Result Comment: Slight Hemolysis, Result may be falsely increased. Performed By: #### L501.2300, L501.5200 #### [facility] [address] [place], [place], [id number] CBC W/DIFF, AUTOMATED Collected: 04/24/2018 Status: F Source: [place] 4:05 PM [facility] REPOSITORY TYPE CODE TESTS RESULT OUT OF RANGE REFERENCE UNITS LAB L100.1000 4.4-11.0 K/mm3 Normal WBC 9.0 LAB L100.1200 4.2-5.4 M/mm3 Low RBC 3.47 LAB L100.1300 12.0-15.0 g/dl Low HGB 10.1 LAB L100.1400 37-47 % Low HCT 32.8 LAB L100.1500 81-99 fL Normal MCV 94.5 LAB L100.1600 27.0-32.0 pg Normal MCH 29.1 LAB L100.1700 32-36 g/gl Low MCHC 30.8 LAB L100.1810 11.6-14.6 % High RDW CV 15.5 LAB L100.1820 35.1-43.9 fl High RDW SD 53.2 LAB L100.1900 150-450 K/mm3 Normal PLT 421 LAB L100.2000 6.2-12.0 fl Normal MPV 9.8 LAB L100.2100 47-70 % Normal NEUT% 68.2 LAB L100.2200 19-41 % Low LY% 16.0 LAB L100.2300 0-10 % High MONO% 11.8 LAB L100.2400 0-5 % Normal EO% 3.6 LAB L100.2500 0-1 % Normal BASO% 0.3 LAB L100.2550 0.0-0.9 % Normal IM GRAN % 0.100 Result Comment: IG% - Immature Granulocytes (promyelocytes, myelocytes and metamyelocytes) > 1% indicates that a LEFT SHIFT is Present. LAB L100.2620 2.0-7.7 X10 3/uL Normal Absolute Neut 6.2 LAB L100.2720 0.83-4.51 X10 3/ul Normal Absolute Lymph 1.44 Performed By: #### L100.0100 #### [facility] [address] [place], [address] COMPREHENSIVE METABOLIC Collected: 04/24/2018 Status: F Source: [place] 4:05 PM [facility] REPOSITORY TYPE CODE TESTS RESULT OUT OF RANGE REFERENCE UNITS LAB L501.0100 74-106 mg/dL High GLU 113 Result Comment: Fasting Glucose result from 100 to 125 mg/dL suggests IMPAIRED HOMEOSTASIS per A.D.A. criteria. Please note revised GLUCOSE reference range effective 2017. LAB L501.1000 7-18 mg/dL High BUN 21 LAB L501.1100 0.55-1.02 mg/dL Normal CREAT,SERUM 0.57 Result Comment: The validity of the calculated GFR AND GFRAA in patients over 70 years has not been determined. Clinical correlation is essential. LAB L501.1110 >60 mL/min Normal EST GFR 107 Result Comment: Non- GFR Calc LAB L501.1115 >60 mL/min Normal EST GFR - AA 129 Result Comment: GFR Calc LAB L501.1255 ml/min Normal Estimated CRCL 27.47 LAB L501.1300 10-20 RATIO High BUN/CRE 36.6 LAB L501.1500 6.4-8. g/dL Normal 2 T PROT 7.0 LAB L501.1800 3.2-5. g/dL Low 0 ALB 2.9 LAB L501.1950 2.2-4. g/dL Normal 2 GLOB 4.1 LAB L501.2000 0.9-2. RATIO Low 4 A/G 0.7 LAB L501.2200 8.5-10 mg/dL Normal .1 CA 9.1 LAB L501.4100 15-37 U/L Normal AST 20 LAB L501.4305 45-117 U/L Normal ALK P 107 LAB L501.4405 13-56 U/L Normal ALT 24 LAB L501.4600 0.20-1 mg/dL Normal .00 T BILI 0.50 LAB L501.5300 136-14 mmol/L Normal 5 NA 138 LAB L501.5600 3.5-5. mmol/L Normal 1 K 4.4 LAB L501.5900 98-107 mmol/L Normal CL 99 LAB L501.6100 21.0-3 mmol/L Normal 2.0 CO2 30.0 LAB L501.6200 5-15 Normal GAP 9 Performed By: #### L500.4050, L501.4010 #### [facility] [address] [place], [address] TROPONIN-I Collected: 04/24/2018 Status: F Source: [place] 4:05 PM [facility] REPOSITORY TYPE CODE TESTS RESULT OUT OF RANGE REFERENCE UNITS LAB L501.4010 <0.045 ng/mL Normal < 0.015 TROPONIN-I Result Comment: TROPONIN-I EXPECTED VALUES <0.045 Negative 0.045 - 0.590 Consistent with Cardiac Damage > OR = 0.600 Critical Value Not every elevated troponin is indicative of [place]. These values should be used with clinical judgement in examining the patient's clinical picture for diagnosis. To establish a diagnosis of [place] versus myocardial injury, there must be a demonstrated rise and/or fall in the troponin values, in addition to ischemic symptoms, EKG changes, new regional wall motion abnormality, and/or angiographical evidence. PLEASE NOTE: REFERENCE RANGES EDITED 17 Performed By: #### L500.4050, L501.4010 #### [facility] [address] [place], [address] BRAIN/HEAD WITHOUT Observed: 04/24/2018 Status: F Source: [place] CONTRAST 3:37 PM [place] [facility] REPOSITORY [facility] Imaging Services [address] [place] [address] Brain/Head without Contrast MR#: [id number] Acct: [id number] Name: SATISHJESSICA Rep #: [id number] : 1935 F 82 From: Sudarshan Wade MD PCP: Carole Velasquez MD Status: PRE ER Study: Brain/Head without Contrast Date of Exam: 04/24/18 Exam# [id number] Ordering Dr: Ancelmo Bardales DO STUDY: CT BRAIN WITHOUT CONTRAST REASON FOR EXAM: Female, 82 years old. Weakness since hip surgery 2 months ago. RADIATION DOSAGE (If Supplied By Facility): CTDIvol = ( 44.99 ) mGy, DLP = ( 745.49 ) mGycm TECHNIQUE: Transaxial CT imaging of the brain was performed without administration of intravenous contrast material. Coronal and sagittal 2-D MPR Individualized dose optimization techniques were used for this CT. COMPARISON: 04/21/2018 CT head. 10/11/2016 CT head. FINDINGS: Paranasal sinuses clear. Mastoid air cells on the right are well-developed and clear. 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 The middle ear cavities are clear. Symmetric and grossly normal features of the vestibular and acoustic apparatus of the temporal bones. Craniofacial osseous structures intact. Extra cranial soft tissues including orbital contents normal. Mild symmetric expansion of lateral ventricles and extra axial spaces consistent with age-related cerebral atrophy. Moderate confluent chronic low-density changes are present in the deep white matter diffusely, bifrontal, biparietal, consistent with chronic microvascular ischemic disease. There is no acute intracranial bleed, mass or mass effect nor any specific evidence of acute territorial infarct. CT/Brain/Head without Contrast IMPRESSION: No acute intracranial process. Electronically Signed: Sudarshan Wade, at 16:31 EDT Tel , Service support , CC: Carole Velasquez MD; Ancelmo Bardales Tennis Ball Cover Cementer: Signed CHEST PA AND LATERAL Observed: 04/24/2018 Status: F Source: [place] 3:37 PM [facility] REPOSITORY [facility] Imaging Services [address] [place] [id number] Chest PA and Lateral MR#: [id number] Acct: [id number] Name: SATISHJESSICA Rep #: [id number] : 1935 F 82 From: Sudarshan Wade MD PCP: Carole Velasquez MD Status: PRE ER Study: Chest PA and Lateral Date of Exam: 04/24/18 Exam# [id number] Ordering Dr: Ancelmo Bardales DO STUDY: X-RAY CHEST REASON FOR EXAM: Female, 82 years old. Cough TECHNIQUE: PA and lateral chest COMPARISON: 04/21/2018 x-ray chest FINDINGS: There is pulmonary hyperlucency and hyperinflation with diffuse mild coarsening of the pulmonary interstitium and flattening of the hemidiaphragms in a pattern most consistent with underlying COPD/emphysema with no acute superimposed infiltrate, effusion, pneumothorax or suspicious focal pulmonary lesion. Normal cardiomediastinal silhouette, theresa and pleural margins. No acute osseous or upper abdominal process. RAD/Chest PA and Lateral IMPRESSION: No acute cardiopulmonary process. Electronically Signed: Sudarshan Wade, at 16:33 EDT Tel , Service support , CC: Carole Velasquez MD; Ancelmo Bardales Tennis Ball Cover Cementer: Signed GLUCOSE METER Collected: 04/23/2018 Status: F Source: [facility][1] 4:16 PM HEALTH SYSTEM REPOSITORY TYPE CODE TESTS RESULT OUT OF REFERENCE UNITS RANGE LAB GLUBL(LOINC 70-99 mg/dL ) High Glucose Meter 107 Result Comment: RN NOTIFIED Performed By: #### GLMET #### [place] [address] CASE MANAGEM Observed: 04/23/2018 Status: COMPLETED Source: [place] 4:09 PM CLINIC OTHER CAMPUS REPOSITORY HNO ID: [id number] Author: Vandana (aMrty) MARTY Suárez Service: Care Management Author Type: Registered Nurse Type: Care Mgt Progress Note Filed: 04/23/2018 4:15 PM Note Text: CARE MANAGEMENT DISCHARGE NOTE SERVICE DATE: 04/23/2018 SERVICE TIME: 4:09 PM LOS: 2 days Discharge note, ordered wheeled walker from [facility], ordered HHC from [facility], cot ride ordered set up for pt at 700pm. Called daughter Dinesh and notified her of pt being discharged to home at 700pm tonight. SIGNATURE: Vandana Suárez RN PATIENT NAME: Jessica Monreal [facility] DATE: April 23, 2018 TIME: 4:09 PM PAGER/CONTACT #: [phone] CONSULT PROG Observed: 04/23/2018 Status: COMPLETED Source: [place] 3:39 PM CLINIC OTHER CAMPUS REPOSITORY HNO ID: [id number] Author: Kinsey Coe) Gurdeep Service: Neurology Author Type: Physician Roof Slater Type: Consult Progress Note Filed: 04/23/2018 3:59 PM Note Text: NEUROLOGY CONSULT PROGRESS NOTE SERVICE DATE: 04/23/2018 SERVICE TIME: 3:39 PM Current Attending Provider: Lazarus Bah Subjective Interval History: Today, Jessica Ma resting in bed stating that she wants to go home. She denies any OLIVA, numbness tingling, dizziness, or changes in vision. Objective Physical Examination: Neurological: ? Mental Status: She is oriented to person and place. She does follow commands. Cranial Nerves: CNII: Visual acuity normal CNIII, IV, : Pupils equal, round and reactive to light CN V: Facial sensation intact bilaterally to fine touch CN VII: Facial muscles symmetric and strong CN VIII: Hears finger rub well bilaterally CN IX: Gag Reflex Not Examined CN X: Palate elevates symmetrically CN XI: Full strength shoulder shrug bilaterally ? CN XII: Tongue protrusion full and midline Motor Exam: ? Muscle Tone: Normal ? Strength today in the bilateral extremities is not changed ? Sensation: Intact to light touch. ? Coordination: Finger-to- nose-finger intact bilaterally. ? Gait: not tested New Labs: WBC Date Value 04/23/2018 5.58 thou/cmm 05/17/2017 Test sent to [facility]. k/uL 10/20/2016 Test sent to [facility]. k/uL RBC Date Value 04/23/2018 3.02 mil/cmm 05/17/2017 Test sent to [facility]. m/uL 10/20/2016 Test sent to [facility]. m/uL Platelet Count Date Value 04/23/2018 379 thou/cmm 05/17/2017 Test sent to [facility]. k/uL 10/20/2016 Test sent to [facility]. k/uL BUN (mg/dL) Date Value 04/23/2018 8 10/20/2016 Test sent to [facility]. 08/16/2016 Test sent to [facility]. Creatinine (mg/dL) Date Value 04/23/2018 0.35 10/20/2016 Test sent to [facility]. 08/16/2016 Test sent to [facility]. CBC, Coags, BMP, Mg, Phos Recent Labs 04/23/18 0530 NA 140 K 3.5 CHLOR 102 CO2 30 GLUC 89 CA 8.5 MG 2.0 Liver Function, Amylase, AND Lipase Recent Labs 04/23/18 0530 TPROT 6.0* ALB 2.5* ALT 21 AST 20 ALKPHOS 86 TBILI 0.4 DATA: Diagnostic tests reviewed for today's visit: Most recent labs and imaging results. MRI BRAIN: No acute process. ?Negative for acute ischemia/infarct. ?Moderate to advanced chronic microvascular ischemic changes throughout the supratentorial white matter. ?Mild generalized atrophy. ? MRA BRAIN: Negative for proximal vascular occlusion, significant intracranial stenoses, or intracranial aneurysm. ? MRA NECK: No significant stenoses. Impression/Recommendations 1)recurrent falls -MRI/ A negative for acute ischemia, stenosis or occlusion -Echo is negative for shunting, atrium is normal size mild diastolic dysfunction. -Tele has not showing any afib up to this point, -ASA can be restarted since images are negative for bleed. -No further neuro work up is needed at this time. Will sign off. please call with questions or concerns. SIGNATURE: KINSEY MARIN PA-C PATIENT NAME: Jessica Monreal [facility] DATE: April 23, 2018 TIME: 3:39 PM PAGER/CONTACT #: [phone] CNDS Observed: 04/23/2018 Status: COMPLETED Source: [place] 2:04 PM CLINIC OTHER CAMPUS REPOSITORY O ID: [id number] Author: Lazarus Bah Service: Hospital Medicine Author Type: Physician Type: Discharge Summaries Filed: 04/23/2018 2:05 PM Note Text: DISCHARGE NOTE (Patient Admitted Less than 48 Hours) SERVICE DATE: 04/23/2018 SERVICE TIME: 2:04 PM ADMISSION DATE: 04/21/2018 DISCHARGE DISPOSITION: Home/Self Care Discharge Physical Exam: VITAL SIGNS: BP 128/60 Pulse 86 Temp 36.8 ?C (98.2 ?F) (Oral) Resp 18 Ht 152.4 cm (5') Wt 91.6 kg (201 lb 15.1 oz) SpO2 98% BMI 39.44 kg/m? Physical Exam Performed GENERAL: Alert, no distress, frail elderly appearing SKIN: Skin color, texture, turgor normal. No rashes or lesions. HEAD/SINUSES: No significant findings EYES: EOMI, sclera anicteric NECK: No jugulovenous distention, Supple LUNGS: Lungs clear to auscultation, Good diaphragmatic excursion CARDIAC: Normal S1 and S2; no rubs, murmurs, or gallops EXTREMITIES: Extremities normal, no deformities, edema, clubbing or skin discoloration. Good capillary refill., No ulcers NEURO: AAOx1 to self only, no focal deficit. DIET: Regular , Cardiac ACTIVITY AFTER DISCHARGE: Resume pre-hospital activity FOLLOW UP CARE REQUIRED: with PCP DISCHARGE MEDICATIONS (ONLY ACTIVATE WHEN READY TO DISCHARGE): Current Discharge Medication List START taking these medications senna-docusate (SENNA-S) 1 tablet Take 1 tablet by mouth twice daily. Qty: 60 tablet Refills: 2 CONTINUE these medications which have NOT CHANGED losartan (COZAAR) 25 mg Take 25 mg by mouth once daily. iron polysaccharide complex (FERREX 150 ORAL) 150 mg Take 150 mg by mouth once daily. cholecalciferol (Vitamin D3) (VITAMIN D3) 50,000 Units Take 50,000 Units by mouth twice a week. (ONE CAPSULE) FOR VITAMIN D DEFICIENCY Qty: 24 capsule Refills: 1 Associated Diagnoses:Vitamin D deficiency ranitidine (ZANTAC) 150 mg tablet TAKE 1 TABLET TWICE DAILY for gastritis Qty: 180 tablet Refills: 3 atorvastatin (LIPITOR) 20 mg tablet TAKE 1 TABLET EVERY DAY for cholesterol Qty: 90 tablet Refills: 3 alendronate (FOSAMAX) 70 mg Take 70 mg by mouth once each week. Qty: 12 tablet Refills: 3 benzonatate (TESSALON PERLE) 100 mg Take 100 mg by mouth three times daily as needed. Qty: 30 capsule Refills: 0 Associated Diagnoses:Cough calcium (elemental) 500 mg Take 500 mg by mouth once daily. Xtxcfnavjqzvc-Cj-Yypc-Minerals 1 tablet Take 1 tablet by mouth once daily. Aspirin 81 mg Take 81 mg by mouth once daily. acetaminophen (TYLENOL) 500 mg Take 500 mg by mouth every 6 hours as needed. STOP taking these medications valsartan (DIOVAN) 40 mg Comments: Reason for Stopping: FINAL DIAGNOSIS: ACTIVE PROBLEM LIST Osteoporosis Hyperlipidemia Dizziness and Giddiness Small Vessel Disease Pvc (Premature Ventricular Contraction) Hypertension Weight Loss Memory Deficits Dizziness Dementia Admitted initially over the weekend to [facility] for intermittent dizziness, CT head was read by radiologist with concerns of possible bleeding vs artifact, transferred to [facility] for neurologist evaluation, repeated CT head here was negative for bleeding, MRI/MRA were unremarkable for acute findings, echocardiogram with mild stage I diastolic dysfunction, otherwise unremarakable, evaluated by neurologist here, discharged home in stable medical condition per PT/OT recommendation. SIGNATURE: Lazarus Bah MD PATIENT NAME: Jessica Covarrubias DATE: April 23, 2018 TIME: 2:04 PM PAGER: [phone] LEAD ELECTROCARDIOGRAM Observed: 04/23/2018 Status: F Source: [place] 1:25 PM [facility] REPOSITORY [facility] Cardiovascular Services [address] [place] [id number] 12 Lead EKG 04/21/18 0637 MR#: [id number] Acct: [id number] Name: JESSICA HAYDEN Rep #: [id number] : 1935 82 From: Tyson Oviedo MD Attending Dr: Status: DEP ER Ordering Dr: John Ayoub MD Date: 04/21/18 Location: ED Sex: F C Admitted: Test Reason : DIZZINESS/FALL Blood Pressure : / mmHG Vent. Rate : 084 BPM Atrial Rate : 084 BPM P-R Int : 120 ms QRS Dur : 072 ms QT Int : 388 ms P-R-T Axes : 023 051 062 degrees QTc Int : 458 ms Normal sinus rhythm Normal ECG Confirmed by TYSON OVIEDO MD ([id number]), assistant editor SANTIAGO CUTLER ([id number]) on 04/23/2018 1:25:29 PM Referred By: Yoav Harp Confirmed By:TYSON OVIEDO MD 04/23/18 1325 Date Tyson Oviedo MD CC: Carole Velasquez MD; John Ayoub MD Signed CASE MANAGEM Observed: 04/23/2018 Status: COMPLETED Source: [place] 8:39 AM CLINIC OTHER CAMPUS REPOSITORY HNO ID: [id number] Author: Vandana (Rn) MARTY Suárez Service: Care Management Author Type: Registered Nurse Type: Care Mgt Progress Note Filed: 04/23/2018 8:43 AM Note Text: CARE MANAGEMENT PROGRESS NOTE SERVICE DATE: 04/23/2018 SERVICE TIME: 8:39 AM LOS: 2 days Received call from pt's daughter Sunitha Hayden, pt has oxygen concentrator at home and portable, has wheelchair ramp, walker, wheelchair. Pt was just at the [facility] February 27-April 04. Discharged home with homecare-[facility]. SIGNATURE: Vandana Suárez RN PATIENT NAME: Jessica Covarrubias DATE: April 23, 2018 TIME: 8:39 AM PAGER/CONTACT #: [phone] HEMOGRAM/DIFF Collected: 04/23/2018 Status: F Source: [facility][1] 5:30 AM HEALTH SYSTEM REPOSITORY TYPE CODE TESTS RESULT OUT OF REFERENCE UNITS RANGE LAB WBC(LOINC) 3.98-10.04 thou/cmm WBC 5.58 LAB RBC(LOINC) 3.93-5.22 mil/cmm Low RBC 3.02 LAB HGB(LOINC) 11.2-15.7 g/dL Low Hgb 9.0 LAB HCT(LOINC) 34.1-44.9 % Low Hct 28.1 LAB MCV(LOINC) 79.4-94.8 fl MCV 93.0 LAB MCH(LOINC) 25.6-32.2 pg MCH 29.8 LAB MCHC(LOINC 31.6-34.8 % ) MCHC 32.0 LAB RDW(LOINC) 11.7-14.4 % RDW High 14.9 LAB RDWSD(LOIN 36.4-46.3 fl C) RDW SD High 50.5 LAB PLT(LOINC) 182-369 thou/cmm Platelet High 379 LAB MPV(LOINC) 9.4-12.3 fl MPV 10.4 LAB SEG(LOINC) % Seg Neutrophil 64.1 LAB IGRE(LOINC % ) Immature Grans 0.40 LAB LYMPH(LOIN % C) Lymphocyte 19.7 LAB MNO(LOINC) % Monocyte 11.3 LAB EOSIN(LOIN % C) Eosinophil 4.1 LAB BASO(LOINC % ) Basophil 0.4 LAB SEGN(LOINC 1.56-6.13 thou/cmm ) Abs. Neut (ANC) 3.58 LAB IGAB(LOINC 0.00-0.05 thou/cmm ) Abs Immature Grans 0.02 LAB LYMN(LOINC 1.18-3.74 thou/cmm ) Low Abs. Lymph 1.10 LAB MONON(LOIN 0.27-0.70 thou/cmm C) Abs. Ransom 0.63 LAB EOSN(LOINC 0.00-0.31 thou/cmm ) Abs. Eosin 0.23 LAB BASON(LOIN 0.01-0.08 thou/cmm C) Abs. Baso 0.02 Performed By: #### CBCD1 #### [place] [address] COMPREHENSIVE PANEL Collected: 04/23/2018 Status: F Source: [facility][1] 5:30 AM HEALTH SYSTEM REPOSITORY TYPE CODE TESTS RESULT OUT OF REFERENCE UNITS RANGE LAB NA(LOINC) 136-145 mEq/L Sodium Blood 140 LAB K(LOINC) 3.5-5.1 mEq/L Potassium Blood 3.5 LAB CL(LOINC) 98-107 mEq/L Chloride Blood 102 LAB CO2(LOINC) 21-32 mEq/L CO2 Blood 30 LAB GLU(LOINC) 70-99 mg/dL Glucose Blood 89 LAB BUN(LOINC) 7-18 mg/dL BUN Blood 8 LAB CREA(LOINC 0.51-0.95 mg/dL ) Low Creatinine Blood 0.35 LAB CA(LOINC) 8.5-10.1 mg/dL Calcium Blood 8.5 LAB ALB(LOINC) 3.4-5.0 g/dL Low Albumin Blood 2.5 LAB TP(LOINC) 6.4-8.2 g/dL Low Total Protein 6.0 LAB AST(LOINC) 9-37 U/L AST-SGOT Blood 20 LAB ALT(LOINC) 12-78 U/L ALT-SGPT Blood 21 LAB ALKP(LOINC 46-116 U/L ) Alk Phosphatase 86 LAB BILIT(LOIN 0.2-1.0 mg/dL C) Total Bilirubin 0.4 LAB ANGAP(LOIN 8-16 C) Anion Gap 12 Performed By: #### P14 #### [facility] [address] [place] [address] MAGNESIUM BLOOD Collected: 04/23/2018 Status: F Source: [facility][1] 5:30 AM HEALTH SYSTEM REPOSITORY TYPE CODE TESTS RESULT OUT OF REFERENCE UNITS RANGE LAB MAG(LOINC) 1.6-2.6 mg/dL Magnesium Blood 2.0 Performed By: #### MAG #### [facility] [address] [place] [address] MDRD GFR Collected: 04/23/2018 Status: F Source: [facility][1] 5:30 AM HEALTH SYSTEM REPOSITORY TYPE CODE TESTS RESULT OUT OF RANGE REFERENCE UNITS LAB GFRFN(LOINC >60mL/min/1.73m ) 2 eGFR >60 Result Comment: If the patient is , multiply the result by 1.210. Performed By: #### GFR #### [facility] [address] [place] [address] MRI BRAIN W/O Observed: 04/22/2018 Status: F Source: [facility] CONTRAST 6:58 PM HEALTH SYSTEM REPOSITORY Performed at [facility] APPROVED BY: John Phipps MD EXAMINATION: MRI BRAIN W/O CONTRAST, MRA NECK W/O CONTRAST, MRA BRAIN W/O CONTRAST HISTORY: TIA, initial exam altered level of consciousness. TECHNIQUE: Routine noncontrast MRI protocol including diffusion and gradient echo images. Intracranial and extracranial 3D pygw-hw-yczizd MRA with 2D multiplanar and 3D maximum intensity projections calculated on the imaging workstation under physician supervision. MQ: [id number]_2 COMPARISON: CT brain dated 04/21/2018 RESULT: BRAIN: Acute Change: There is no evidence of restricted diffusion to suggest an acute infarct. Hemorrhage: No evidence of prior parenchymal hemorrhage on the gradient echo images. Mass Lesion/ Mass Effect: No evidence of an intracranial mass or extra-axial fluid collection. No significant mass effect. Chronic Change: Extensive, confluent increased T2 and FLAIR signal is present in the supratentorial white matter which is nonspecific but likely represents extensive chronic microvascular ischemia. Mu ltiple dilated basal ganglia region perivascular spaces are noted. Parenchyma: There is mild generalized parenchymal volume loss. The brain parenchyma is otherwise within normal limits of signal intensity and morphology. Ventricles: Ventriculomegaly corresponds to the degree of parenchymal volume loss. Skull Base: Hypothalamic and pituitary region are grossly normal. Craniocervical junction is normal. No significant marrow replacement process. Vasculature: Major intracranial arterial structures, and dural venous sinuses show typical flow void, suggesting patency by spin echo criteria. Other: The visualized paranasal sinuses and mastoid air cells are clear. The orbits and extracranial soft tissues are unremarkable. INTRACRANIAL MRA: Intracranial vertebral arteries, basilar artery, superior cerebellar arteries, posterior cerebral arteries are intact and within normal limits. There is a /near origin of the left posterior cerebral artery. Intracranial internal carotid arteries, proximal LASHAUN segmental, and proximal MCA segmental vessels intact without significant stenoses. EXTRACRANIAL MRA: Carotid Stenosis: Right Common: No significant stenosis. Right Internal Plaque: No significant plaque formation. Right Internal Carotid Stenosis (% by NASCET Criteria): None measurable Left Common: No significant stenosis. Left Internal Carotid Plaque: No significant plaque formation. Left Internal Carotid Stenosis (% by NASCET Criteria): None measurable Cervical Vertebral Arteries: Patency: Bilateral Dominance: Relatively codominant IMPRESSION: MRI BRAIN: No acute process. Negative for acute ischemia/infarct. Moderate to advanced chronic microvascular ischemic changes throughout the supratentorial white matter. Mild generalized atrophy. MRA BRAIN: Negative for proximal vascular occlusion, significant intracranial stenoses, or intracranial aneurysm. MRA NECK: No significant stenoses. MRA BRAIN W/O Observed: 04/22/2018 Status: F Source: [facility] CONTR[facility] 6:58 PM HEALTH SYSTEM REPOSITORY Performed at [facility] APPROVED BY: John Phipps MD EXAMINATION: MRI BRAIN W/O CONTRAST, MRA NECK W/O CONTRAST, MRA BRAIN W/O CONTRAST HISTORY: TIA, initial exam altered level of consciousness. TECHNIQUE: Routine noncontrast MRI protocol including diffusion and gradient echo images. Intracranial and extracranial 3D bjrt-lw-vonocz MRA with 2D multiplanar and 3D maximum intensity projections calculated on the imaging workstation under physician supervision. MQ: [id number]_2 COMPARISON: CT brain dated 04/21/2018 RESULT: BRAIN: Acute Change: There is no evidence of restricted diffusion to suggest an acute infarct. Hemorrhage: No evidence of prior parenchymal hemorrhage on the gradient echo images. Mass Lesion/ Mass Effect: No evidence of an intracranial mass or extra-axial fluid collection. No significant mass effect. Chronic Change: Extensive, confluent increased T2 and FLAIR signal is present in the supratentorial white matter which is nonspecific but likely represents extensive chronic microvascular ischemia. Mu ltiple dilated basal ganglia region perivascular spaces are noted. Parenchyma: There is mild generalized parenchymal volume loss. The brain parenchyma is otherwise within normal limits of signal intensity and morphology. Ventricles: Ventriculomegaly corresponds to the degree of parenchymal volume loss. Skull Base: Hypothalamic and pituitary region are grossly normal. Craniocervical junction is normal. No significant marrow replacement process. Vasculature: Major intracranial arterial structures, and dural venous sinuses show typical flow void, suggesting patency by spin echo criteria. Other: The visualized paranasal sinuses and mastoid air cells are clear. The orbits and extracranial soft tissues are unremarkable. INTRACRANIAL MRA: Intracranial vertebral arteries, basilar artery, superior cerebellar arteries, posterior cerebral arteries are intact and within normal limits. There is a /near origin of the left posterior cerebral artery. Intracranial internal carotid arteries, proximal LASHAUN segmental, and proximal MCA segmental vessels intact without significant stenoses. EXTRACRANIAL MRA: Carotid Stenosis: Right Common: No significant stenosis. Right Internal Plaque: No significant plaque formation. Right Internal Carotid Stenosis (% by NASCET Criteria): None measurable Left Common: No significant stenosis. Left Internal Carotid Plaque: No significant plaque formation. Left Internal Carotid Stenosis (% by NASCET Criteria): None measurable Cervical Vertebral Arteries: Patency: Bilateral Dominance: Relatively codominant IMPRESSION: MRI BRAIN: No acute process. Negative for acute ischemia/infarct. Moderate to advanced chronic microvascular ischemic changes throughout the supratentorial white matter. Mild generalized atrophy. MRA BRAIN: Negative for proximal vascular occlusion, significant intracranial stenoses, or intracranial aneurysm. MRA NECK: No significant stenoses. MRA NECK W/O CONTRAST Observed: 04/22/2018 Status: F Source: [facility][1] 6:58 PM HEALTH SYSTEM REPOSITORY Performed at [facility] APPROVED BY: John Phipps MD EXAMINATION: MRI BRAIN W/O CONTRAST, MRA NECK W/O CONTRAST, MRA BRAIN W/O CONTRAST HISTORY: TIA, initial exam altered level of consciousness. TECHNIQUE: Routine noncontrast MRI protocol including diffusion and gradient echo images. Intracranial and extracranial 3D cutu-js-gheezo MRA with 2D multiplanar and 3D maximum intensity projections calculated on the imaging workstation under physician supervision. MQ: [id number]_2 COMPARISON: CT brain dated 04/21/2018 RESULT: BRAIN: Acute Change: There is no evidence of restricted diffusion to suggest an acute infarct. Hemorrhage: No evidence of prior parenchymal hemorrhage on the gradient echo images. Mass Lesion/ Mass Effect: No evidence of an intracranial mass or extra-axial fluid collection. No significant mass effect. Chronic Change: Extensive, confluent increased T2 and FLAIR signal is present in the supratentorial white matter which is nonspecific but likely represents extensive chronic microvascular ischemia. Mu ltiple dilated basal ganglia region perivascular spaces are noted. Parenchyma: There is mild generalized parenchymal volume loss. The brain parenchyma is otherwise within normal limits of signal intensity and morphology. Ventricles: Ventriculomegaly corresponds to the degree of parenchymal volume loss. Skull Base: Hypothalamic and pituitary region are grossly normal. Craniocervical junction is normal. No significant marrow replacement process. Vasculature: Major intracranial arterial structures, and dural venous sinuses show typical flow void, suggesting patency by spin echo criteria. Other: The visualized paranasal sinuses and mastoid air cells are clear. The orbits and extracranial soft tissues are unremarkable. INTRACRANIAL MRA: Intracranial vertebral arteries, basilar artery, superior cerebellar arteries, posterior cerebral arteries are intact and within normal limits. There is a /near origin of the left posterior cerebral artery. Intracranial internal carotid arteries, proximal LASHAUN segmental, and proximal MCA segmental vessels intact without significant stenoses. EXTRACRANIAL MRA: Carotid Stenosis: Right Common: No significant stenosis. Right Internal Plaque: No significant plaque formation. Right Internal Carotid Stenosis (% by NASCET Criteria): None measurable Left Common: No significant stenosis. Left Internal Carotid Plaque: No significant plaque formation. Left Internal Carotid Stenosis (% by NASCET Criteria): None measurable Cervical Vertebral Arteries: Patency: Bilateral Dominance: Relatively codominant IMPRESSION: MRI BRAIN: No acute process. Negative for acute ischemia/infarct. Moderate to advanced chronic microvascular ischemic changes throughout the supratentorial white matter. Mild generalized atrophy. MRA BRAIN: Negative for proximal vascular occlusion, significant intracranial stenoses, or intracranial aneurysm. MRA NECK: No significant stenoses. PROGRESS Observed: 04/22/2018 Status: COMPLETED Source: PRINTER 5:42 PM CLINIC OTHER CAMPUS REPOSITORY HNO ID: [id number] Author: Lazarus Bah Service: Hospital Medicine Author Type: Physician Type: Progress Notes Filed: 04/22/2018 5:47 PM Note Text: DEPARTMENT OF HOSPITAL MEDICINE PROGRESS NOTE Subjective INTERVAL HPI: admitted for dizziness in [place], [place] concerning for possible bleeding,transferred to [facility] for neuro eval Today patient has no new complaints vs stable, she has baseline memory loss, she offered no new complaints MEDICATIONS: Reviewed Objective PHYSICAL EXAM: BP 139/51 Pulse 91 Temp (Src) 97.7 (Oral) Resp 18 Ht 5' 0 (1.52m) Wt 201 lb 15.1 oz (91.6kg) SpO2 99% BMI 39.44 kg/(m2). Physical Exam Performed GENERAL: Alert, no distress, frail elderly appearing SKIN: Skin color, texture, turgor normal. No rashes or lesions. HEAD/SINUSES: No significant findings EYES: EOMI, sclera anicteric NECK: No jugulovenous distention, Supple LUNGS: Lungs clear to auscultation, Good diaphragmatic excursion CARDIAC: Normal S1 and S2; no rubs, murmurs, or gallops EXTREMITIES: Extremities normal, no deformities, edema, clubbing or skin discoloration. Good capillary refill., No ulcers NEURO: AAOx1 to self only, no focal deficit. Lines, Drains, and Airways Line Peripheral 04/21/18 1430 Assessment Short Left Antecubital 22 Gauge 1 day DATA: Diagnostic tests reviewed for today's visit: Most recent labs and imaging results. Assessment/Plan Hyperlipidemia Hypertension Dizziness : repeated CT head here at [facility] showed no evidence of bleeding, neurologic exam unremarkable expect of memory changes Dementia at baseline Debility Plan MRI/MRA pending Cont cardiac care measures, arb, statin, no asa until bleeding is entirely excluded. Medication and Non-Pharmacologic VTE Prophylaxis/Anticoagulants 04/21/18 1500 pneumatic compression stockings ([place]) 04/21/18 1500 activity - mobilize patient ([place]) VTE Prophylaxis: VTE prophylaxis appropriate Disposition: Home with [facility] Plan of care discussed with: Patient SIGNATURE: Lazarus Bah MD PATIENT NAME: Jessica Monreal [facility] DATE: April 22, 2018 TIME: 5:42 PM PAGER/CONTACT #: [phone] etx [phone] CASE MANAGEM Observed: 04/22/2018 Status: COMPLETED Source: PRINTER 3:09 PM [facility] OTHER [place] REPOSITORY HNO ID: [id number] Author: Vandana (Rn) MARTY Suárez Service: Care Management Author Type: Registered Nurse Type: Care Mgt Progress Note Filed: 04/22/2018 3:09 PM Note Text: CARE MANAGEMENT PROGRESS NOTE SERVICE DATE: 04/22/2018 SERVICE TIME: 3:09 PM LOS: 1 day Called and left message for daughter Sunitha regarding home therapy choice list. SIGNATURE: Vandana Suárez RN PATIENT NAME: Jessica Monreal [facility] DATE: April 22, 2018 TIME: 3:09 PM PAGER/CONTACT #: [phone] THERAPY NT Observed: 04/22/2018 Status: COMPLETED Source: PRINTER 2:54 PM [facility] REPOSITORY HNO ID: [id number] Author: Ricky (Pt) Mani Service: Physical Therapy Author Type: Physical Therapist Type: Therapy (PT/OT/Speech/Resp) Filed: 04/22/2018 2:57 PM Note Text: Physical Therapy Evaluation SERVICE DATE: 04/22/2018 SERVICE TIME: 1312 to 1327 ROOM: [id number] Recommended Discharge Disposition: Home PT Recommended Discharge Disposition Comments: Pt is close to her pre-admit level of mobility. Pt will benefit from home PT at d/c Anticipated Discharge Needs: Family Training;Physical Assist at Home;Equipment Physical Assist at Home for: Transfers;Finances;Cleaning;Laundry;Meals;Medication Management;Safety;Self Care;Shopping;Transportation Recommended Discharge Equipment: Wheeled Walker PT Recommendations to Nursing: Ambulate with device;To bathroom;With assist of 1 person Device: Wheeled Walker PT 6 Clicks Score: 20 Precautions/Activity Restrictions: Fall Risk;Lines/Tubes/Drains ASSESSMENT : Pt mobility appears to be at her approximate pre-admit level. Anticipate return home with family at the time of medical d/c. Patient presents with personal factors, comorbidities and results of the PT examination that require moderate complexity decision making. The patient requires skilled physical therapy to address multiple PT problems in order for the patient to return to a baseline functional level. . Requires skilled PT for functional mobility, strengthening and balance.. Patient Disposition at Start of Session: Supine in Bed;Call Do in Reach;Family Present Patient Disposition at End of Session: Supine in Bed;Call Do in Reach;Bed Alarm;Family Present Tolerated Full Session Without limitations Physical Therapy Problem List: Safety Deficits;Decreased Strength;Functional Mobility Impairment;Balance Impaired Patient /Caregiver Goals: Walk;Go Home Goals for Plan of Care: Able to perform HEP with: Verbal Cues Only Transfer sit to/from stand with: Stand By Assistance Ambulate with: Stand By Assistance Distance: 100 Device: Wheeled Walker Rehab Potential: Good PLAN: Treatment Frequency (times per week): 5 (2-5) Current admission Treatment Interventions: Education;Strengthening;Balance Training;Functional Mobility Training Plan of Care developed with: Patient TREATMENT INTERVENTIONS: Therapy Diagnosis: Reduced mobility-other Interventions Provided: Evaluation $ Evaluation-Moderate (20237) Billed Units: 1 unit Total Treatment Time (minutes): 15 FUNCTIONAL G CODE: PT 6 Clicks Score: 20 (04/22/18 131) Mobility: Walking and Moving Around Current Status (G8978): CJ (04/22/18 131) Mobility: Walking and Moving Around Goal Status (G8979): CI (04/22/18 131) Based on clinical assessment and the score on the 6 Clicks Functional Assessment Tool, the G code and corresponding severity modifiers are documented above. SUBJECTIVE: Current Hospital Course: Chart reviewed; Dizziness and fall. , CT of head suspicious for a small hemorrhage Active Hospital Problems Diagnosis - Dizziness - SAH (subarachnoid hemorrhage) (HCC) - Hypertension On metoprolol. She thinks she had paroxsymal afib. And this was the reason she was started on the medication - Hyperlipidemia TC-136 december 2014. 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 Home Environment Patient Lives With: Family (daughter) Equipment Owned: Standard Walker Prior Functional Level: History of Falls;Required Assistance Assistance Required With: Transportation;Shopping;Medication Management;Finances;Cleaning;Laundry;Meals (patient and daughter danielle mejiamc to roselyn and ) OBJECTIVE: CURRENT FUNCTIONAL STATUS: Current Functional Mobility Assist Level Additional Information Rolling Stand By Assistance Supine to Sit Stand By Assistance Sit to Supine Stand By Assistance Scooting Stand By Assistance Sit to Stand Contact Guard Assistance Stand to Sit Contact Guard Assistance Bed to Chair Toilet/Commode Gait Contact Guard Assistance Gait Device: Hand Held Assist;Wheeled Walker Gait Distance (feet): 15x2, 15x1 Stairs Curb Step Car Transfer General Gait Deviations: Nettie decreased Range of Motion: WFL Strength: Lower Extremity Comments Right Lower Extremity Strength Comments: 4 Left Lower Extremity Strength Comments: 4 Bed alarm armed at the end of the session. Balance: Dynamic Standing Dynamic Standing Balance: Contact Guard Assistance Please see discipline specific clinical documentation flowsheet for complete details for this therapy evaluation/treatment. SIGNATURE: Ricky Singleton PT PATIENT NAME: Jessica Monreal [facility] DATE: April 22, 2018 TIME: 2:54 PM THERAPY NT Observed: 04/22/2018 Status: COMPLETED Source: PRINTER 2:41 PM CLINIC OTHER CAMPUS REPOSITORY HNO ID: [id number] Author: Blanca Mueller/Alexander Markham Service: Occupational Therapy Author Type: Occupational Therapist Type: Therapy (PT/OT/Speech/Resp) Filed: 04/22/2018 2:45 PM Note Text: Occupational Therapy Evaluation SERVICE DATE: 04/22/2018 SERVICE TIME: 1313 to 1335 ROOM: [id number] Recommended Discharge Disposition: Home OT Recommended Discharge Disposition Comments: family assist Continue [facility] OT Anticipated Discharge Needs: Family Training;Physical Assist at Home;Equipment Physical Assist at Home for: Transfers;Finances;Cleaning;Laundry;Meals;Medication Management;Safety;Self Care;Shopping;Transportation OT Recommendations to Nursing: ADL?s in chair;To Bathroom for ADL?s /and or Toileting;OOB for meals Equipment: Wheeled Walker OT 6 Clicks Score: 18 Precautions/Activity Restrictions: Fall Risk;Lines/Tubes/Drains ASSESSMENT: OT Evaluation Moderate Complexity: Occupational Profile - Extended review of patient's medical record completed including patient's physical, cognitive, and psycho-social history (please see current hospital course of evaluation). Occupational Performance - Pt presents with deficits in feeding, grooming, UE bathing/dressing, LE bathing/dressing, functional transfers, functional mobility, decreased safety awareness, decreased insight into deficits Complexity in Clinical Decision Making - The extent of clinical reasoning was moderate, several treatment options present for the patient, need for modification during the evaluation was minimal/moderate, comorbidities affecting occupational performance: HPL.constipation, falls Patient Disposition at Start of Session: Supine in Bed Patient Disposition at End of Session: Supine in Bed Tolerated Full Session Occupational Therapy Problem List: Cognitive Deficit;Education Deficit;Safety Deficits;Impaired Self Care;Decreased Activity Tolerance;Decreased Strength;Functional Mobility Impairment;Balance Impaired;Motor Planning Difficulties Patient /Caregiver Goals: Go Home;Care For Self Goals for Plan of Care: Grooming with: Set Up Upper Body Dressing with: Set Up Lower Body Dressing with: Minimal Assistance Toilet Hygiene with: Set Up Toilet Transfer with: Stand By Assistance Tolerate (minutes of functional activity): 25 Functional Activity with: Contact Guard Assistance Demonstrate Competence With Education with: Minimal Assistance Increased Awareness of Cognitive Impairments as Related to ADL's/IADL's: Verbalized;Demonstrated Progress Toward Goals: Progressing as expected Rehab Potential: Good PLAN: Treatment Frequency (times per week): 5 (1-5) Current admission Treatment Interventions: Education;Self Care / Home Management;Energy Conservation Training;Functional Mobility Training;Balance Training;Cognitive Training Plan of Care developed with: Patient;Family TREATMENT INTERVENTIONS: Therapy Diagnosis: Reduced mobility-other;Muscle Weakness (generalized);Decreased activities of daily living (ADL);Unsteadiness on feet;General symptoms and signs-other;Signs and Symptoms Involving Cognitive Functions and Awareness Interventions Provided: Evaluation;Self Long Term Management (93971) $ Evaluation-Moderate (78223) Billed Units: 1 unit Self Long Term Management (89136) Treatment Minutes: 10 1 unit Skilled Intervention(s): Instructed in energy conservation and simplification techniquers to improve safetya and efficiency with bed to bathroom and self care Total Timed Code Treatment Minutes: 10 Total Treatment Time (minutes): 25 FUNCTIONAL G CODE: OT 6 Clicks Score: 18 (04/22/18 1310) Self Care Current Status (G8987): CK (04/22/18 1310) Self Care Goal Status (G8988): CJ (04/22/18 1310) Based on clinical assessment and the score on the 6 Clicks Functional Assessment Tool, the G code and corresponding severity modifiers are documented above. SUBJECTIVE: Current Hospital Course: Chart reviewed; 82 y/o F admitted for dizziness PAST MEDICAL HISTORY Diagnosis Date - Dementia - Dizziness and giddiness 09/25/2011 - Fracture, rib 07/19/2011 - Hyperlipidemia 09/14/2011 - Osteoporosis 08/10/2011 - PAF (paroxysmal atrial fibrillation) (HCC) - PLANTAR Fasciitis 12/14/2005 PAST SURGICAL HISTORY Procedure Laterality Date - COLONOSCOP W/ OR W/O BRSH SPEC 01/22/2013 Colonoscopy - EGD W/O OR W/BRUSH/WASH 01/22/2013 EGD - REMV LENS MATERIAL,PHACOFRAGMT 03/2012 Cataract Extraction - right eye - Dr Garcia - TOTAL HIP REPLACEMENT Right Patient Report: Denies pain ,residual dizziness Home Environment Patient Lives With: Family (daughter) Equipment Owned: Standard Walker Prior Functional Level: History of Falls;Required Assistance Assistance Required With: Transportation;Shopping;Medication Management;Finances;Cleaning;Laundry;Meals (patient and daughter danielle taxi to grocery and MD) OBJECTIVE: Responsiveness: Alert;Awake Follows Commands: 2-step Commands Executive Function Deficits: Safety Awareness;Motor Planning;Insight to Deficits;Judgement Safety Awareness Deficit: Moderate impairment Judgement Deficit: Moderate impairment Insight to Deficits: Moderate impairment Motor Planning Deficit: Minimal impairment Psychosocial Deficit: daughter states patient is stubborn refuses BSC CURRENT FUNCTIONAL STATUS: Current Activities of Daily Living Assist Level Feeding Set Up Grooming Stand By Assistance Bathing Upper Body Minimal Assistance Bathing Lower Body Maximal Assistance Dressing Upper Body Contact Guard Assistance Dressing Lower Body Moderate Assistance Toileting Minimal Assistance Instrumental Activities of Daily Living Assist Level Meal/Beverage Prep Light Cleaning Laundry Medication Management with Strategies Maximal Assistance Functional Mobility Assist Level Rolling Contact Guard Assistance Supine to Sit Contact Guard Assistance Sit to Supine Contact Guard Assistance Scooting Sit to Stand Contact Guard Assistance Stand to Sit Minimal Assistance Bed to Chair Toilet/Commode Minimal Assistance Functional Mobility Contact Guard Assistance Wheeled Walker Hand Dominance: Right Range of Motion: ROM Limitation Comments ROM Limitation Comments: grossly intact reach Tone Abnormalities: (thin/frail appearance) Balance: Dynamic Standing Dynamic Standing Balance: Contact Guard Assistance Activity Tolerance: Sitting Activity;Standing Activity Sitting Activity: EOB Sitting Activity Tolerance (in minutes): 4 Standing Activity: bed to bathroom Standing Activity Tolerance (in minutes): 4 Please see discipline specific clinical documentation flowsheet for complete details for this therapy evaluation/treatment. SIGNATURE: TYLER Aleman/Cristopher PATIENT NAME: Jessica Covarrubias DATE: April 22, 2018 TIME: 2:41 PM NURSING PROG Observed: 04/22/2018 Status: COMPLETED Source: PRINTER 2:07 PM [facility] REPOSITORY HNO ID: [id number] Author: Judy MorrisRn) MARTY Meeks Service: Nursing Author Type: Registered Nurse Type: Nursing Progress Note Filed: 04/22/2018 2:08 PM Note Text: Nursing Progress Note Patient Name: Jessica Covarrubias Patient Location: [place] [address]/[place] [address]* Daily Note: Text page sent to Dr. Bah about pt having hard and painful stools to see if we can get an order for a stool softener. 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 No Advance Directive: Health Literacy: 1. How often do you need to have someone help you when you read instructions, pamphlets, or other written material from your doctor or pharmacy? Rarely - 2 2. How confident are you filling out medical forms by yourself? Somewhat - 3 If Patient scores > 3 on either question, the following interventions were put into place: Use of plain language and active listening with Patient and family and Teach back methods employed to ensure comprehension FUNCTIONAL AND COGNITIVE/BEHAVIORAL PRIOR TO ADMISSION: Baseline Mental Status: Alert AND Oriented, Person, Place , Time and Situation Functional Status: Independent Does Patient Currently Receive Any Community Services or Home Care? None Equipment Prior to Admission: None Has the Patient Been in a Custodial Facility in the Past 30 days? No SOCIAL: Living Arrangement: Home Lives With: Daughter Financial Resources: Retired Primary Contact: Extended Emergency Contact Information Primary Emergency Contact: Dinesh Hayden Address: [address] [place] [id number] Relation: Daughter Secondary Emergency Contact: Shameka Yin Mobile Relation: Daughter Supportive: Yes Other Important Patient Contacts: None Caregiver Assessment: Caregiver is ready, willing and able to meet the patient's needs as recommended by the inter-professional team? No Caregiver Needed Patient's transition needs and plan for meeting these needs: home with supportive daughter Martha Does the patient have an acute stroke diagnosis, or has the patient had a stroke during this admission? No Medication Adherence: I am convinced of the importance of my prescription medication: Agree completely - 0 I worry that my prescription medication will do more harm than good to me Disagree mostly - 0 I feel financially burdened by my [id number] expenses for my prescription medication: Disagree mostly -0 Patient is categorized as low risk < 2 Are you interested in bedside delivery of your medications? Yes Food Concerns: In the Last Month, Have You had Trouble Getting Food? No trouble getting food During the Last Month, Have You Worried Whether Your Food Would Run Out Before You Had Enough Money to Buy More? No Is the Patient Psychosocially Complex? No ASSESSMENT AND PLAN: Medical Needs: None Psychosocial Needs: None FREEDOM OF CHOICE EXPLAINED: N/A POTENTIAL TRANSITION PLANS Home Met with pt at bedside, pt lives at home with daughter Martha, takes taxi to grocery store and Brian Uses no DME at home, refusing information regarding [facility] services. [place]. Scripts filled at [facility] and will need taxi ride home. SIGNATURE: Vandana Suárez RN PATIENT NAME: Jessica Monreal [facility] DATE: April 22, 2018 TIME: 10:05 AM PAGER/CONTACT #: [phone] LIPID PROFILE Collected: 04/22/2018 Status: F Source: [facility][1] 4:28 AM HEALTH SYSTEM REPOSITORY TYPE CODE TESTS RESULT OUT OF REFERENCE UNITS RANGE LAB CHOL(LOINC 0-199 mg/dL ) Cholesterol Blood 73 Result Comment: <200 Desirable 200-240 Borderline >240 High LAB TRIG(LOINC) 0-149 mg/dL Triglyceride Blood 46 Result Comment: < 200 Desirable Result invalid if not a fasting specimen. LAB HDL2(LOINC) >40 mg/dL HDL Cholesterol 35 LAB CHHDL(LOINC) 1.8-5.3 CHOL/HDL 2.1 LAB LDL(LOINC) mg/dL LDL (Calculated) 29 Result Comment: No CAD and with fewer than 2 CAD risk factors <160 mg/dL No CAD but with 2 or more CAD risk factors <130 mg/dL Definite CAD or other atherosclerotic disease <100 mg/dL LAB VLDL(LOINC) <50 Desired mg/dL VLDL Cholesterol 9 LAB LDHDL(LOINC) 0.6-3.6 LDL/HDL 0.8 Result Comment: LDL,VLDL,LDL/HDL, Invalid if Triglyceride >400 Performed By: #### LIPD2 #### [place] [address] HGB A1C Collected: 04/22/2018 Status: F Source: [facility] 4:28 AM HEALTH SYSTEM REPOSITORY TYPE CODE TESTS RESULT OUT OF RANGE REFERENCE UNITS LAB A1C5(LOINC) 4.2-6.3 % Hgb A1c 4.7 Result Comment: Method is National Glycohemoglobin Standardization Program (NGSP) compliant. LAB ESAVG(LOINC) mg/dl Est. Avg Glucose 88 Performed By: #### HA1C #### [place] [address] CT HEAD W/O CONTRAST Observed: 04/21/2018 Status: F Source: [facility][1] 6:06 PM HEALTH SYSTEM REPOSITORY Performed at [facility] APPROVED BY: Ty Smith MD EXAMINATION: CT HEAD W/O CONTRAST CLINICAL HISTORY: Altered level of consciousness TECHNIQUE: Serial axial images without IV contrast were obtained from the vertex to the foramen magnum. MQ: [id number] CT Dose-Length Product: 828 mGy*cm CT Dose Reduction Employed: 5. No dose reduction techniques were required. COMPARISON: None. RESULT: There is no evidence for recent intracranial hemorrhage, mass lesion, or recent infarction. There is mild central atrophy. 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 There is no skull fracture. The visualized portions of the paranasal sinuses and mastoid air cells are clear. IMPRESSION: Chronic involutional changes. There is no acute intracranial abnormality. Follow-up, possibly to include MRI, is suggested as clinically indicated. CONSULT Observed: 04/21/2018 Status: COMPLETED Source: PRINTER 5:28 PM CLINIC OTHER CAMPUS REPOSITORY HNO ID: [id number] Author: David Kelsey Jr. Service: Neurology Author Type: Physician Type: Consults Filed: 04/23/2018 1:33 AM Note Text: INITIAL CONSULT NEURO STROKE SERVICE DATE: 04/21/2018 SERVICE TIME: 1715 REQUESTING PHYSICIAN: YUDI PCP: CAROLE VELASQUEZ MD REASON FOR STROKE EVALUATION: fall; stroke/hemorrhage seen on [facility] C[facility] Subjective HPI: Patient transferred to [facility] from [place] for further evaluation of possible hemorrhage seen in left caudate nucleus. Patient is a poor historian but tells me that she was in front of her chair yesterday and suddenly could not bare weight and slid to the ground. She denies head trauma, pain, numbness, tingling, weakness, vision changes. She wants to go home. She has documented AFIB but she can't tell me if she takes OAC. Med list shows Asa. Pre-admission Pre-morbid mRS: Premorbid Modified Gibbs Score: 3 - Moderate disability - requiring some help, but able to walk without assistance PAST MEDICAL HISTORY Diagnosis Date - Atrial fibrillation (HCC) - Dizziness and giddiness 09/25/2011 - Fracture, rib 07/19/2011 - Hyperlipidemia 09/14/2011 - Osteoporosis 08/10/2011 - PLANTAR Fasciitis 12/14/2005 PAST SURGICAL HISTORY Procedure Laterality Date - COLONOSCOP W/ OR W/O BRSH SPEC 01/22/2013 Colonoscopy - EGD W/O OR W/BRUSH/WASH 01/22/2013 EGD - REMV LENS MATERIAL,PHACOFRAGMT 03/2012 Cataract Extraction - right eye - Dr Garcia Social History Marital status: Spouse name: Years of education: Number of children: Social History Main Topics Smoking status: Never Smoker Smokeless tobacco: Never Used Alcohol use: No Drug use: No Sexual activity: No FAMILY HISTORY Problem Relation Age of Onset - Cancer Father - Cancer Mother lung,stomach,bowel - Heart Maternal Uncle enlarged - Hypertension Maternal Uncle - Stroke Maternal Uncle ALLERGIES Allergen Reactions - Meclizine Other: See Comments - Seasonal Allergies Other: See Comments pollen MEDICATION Pre-admission Prescriptions Prior to Admission: losartan (COZAAR) 25 mg tablet Take 25 mg by mouth once daily. Disp: Rfl: Unknown at Unknown time iron polysaccharide complex (FERREX 150 ORAL) Take 150 mg by mouth once daily. Disp: Rfl: cholecalciferol, Vitamin D3, (VITAMIN D3) 50,000 unit cap capsule Take 1 capsule by mouth twice a week. (ONE CAPSULE) FOR VITAMIN D DEFICIENCY Disp: 24 capsule Rfl: 1 Taking ranitidine (ZANTAC) 150 mg tablet TAKE 1 TABLET TWICE DAILY for gastritis Disp: 180 tablet Rfl: 3 Taking atorvastatin (LIPITOR) 20 mg tablet TAKE 1 TABLET EVERY DAY for cholesterol Disp: 90 tablet Rfl: 3 Taking alendronate (FOSAMAX) 70 mg tablet Take 1 tablet by mouth once each week. Indications: POST-MENOPAUSAL OSTEOPOROSIS Disp: 12 tablet Rfl: 3 Taking valsartan (DIOVAN) 40 mg tablet Take 1 tablet by mouth once daily. Disp: 30 tablet Rfl: 5 Taking benzonatate (TESSALON PERLE) 100 mg capsule Take 1 capsule by mouth three times daily as needed. (Patient not taking: Reported on 04/16/2018 ) Disp: 30 capsule Rfl: 0 Not Taking calcium, elemental, tab Take 1 tablet by mouth once daily. Disp: Rfl: Taking Tewztdxxdomet-Er-Dewa-Minerals (MULTIPLE VITAMIN, WOMENS) tab Take 1 tablet by mouth once daily. Disp: Rfl: Taking Aspirin 81 mg Tab Take 81 mg by mouth once daily. Disp: Rfl: Taking acetaminophen (TYLENOL EXTRA STRENGTH) 500 mg tablet Take 500 mg by mouth every 6 hours as needed. Disp: Rfl: Taking Current losartan (COZAAR) 25 mg tablet Take 25 mg by mouth once daily. iron polysaccharide complex (FERREX 150 ORAL) Take 150 mg by mouth once daily. cholecalciferol, Vitamin D3, (VITAMIN D3) 50,000 unit cap capsule Take 1 capsule by mouth twice a week. (ONE CAPSULE) FOR VITAMIN D DEFICIENCY ranitidine (ZANTAC) 150 mg tablet TAKE 1 TABLET TWICE DAILY for gastritis atorvastatin (LIPITOR) 20 mg tablet TAKE 1 TABLET EVERY DAY for cholesterol alendronate (FOSAMAX) 70 mg tablet Take 1 tablet by mouth once each week. Indications: POST-MENOPAUSAL OSTEOPOROSIS valsartan (DIOVAN) 40 mg tablet Take 1 tablet by mouth once daily. benzonatate (TESSALON PERLE) 100 mg capsule Take 1 capsule by mouth three times daily as needed. calcium, elemental, tab Take 1 tablet by mouth once daily. Jybzbuzjeojqx-Zx-Onsu-Minerals (MULTIPLE VITAMIN, WOMENS) tab Take 1 tablet by mouth once daily. Aspirin 81 mg Tab Take 81 mg by mouth once daily. acetaminophen (TYLENOL EXTRA STRENGTH) 500 mg tablet Take 500 mg by mouth every 6 hours as needed. REVIEW OF SYSTEMS The following systems were reviewed with the patient, and are unremarkable other than as described below. SYSTEMIC: No fever, chills, or change in weight or appetite HEENT: No recent change in vision or hearing. GI: No recent nausea, vomiting or diarrhea. : No recent hematuria or dysuria. SKIN: No recent itching or eruption. PSYCH: No recent active anxiety or depression. HEMATOLOGY/ONCOLOGY: No recent diagnosis of bleeding or cancer. ENDOCRINE: No recent diagnosis of DM or thyroid disease. RHEUMATOLOGY: No recent active connective tissue disease. Objective PHYSICAL EXAM Vital Signs: BP 128/61 Pulse 83 Temp 36.4 ?C (97.5 ?F) (Oral) Resp 19 SpO2 99% GENERAL: Awake/easily arousable. HEENT: Normocephalic/atraumatic RESPIRATORY: Normal respiratory effort. Clear to auscultation without rhonchi, rales, wheezing. CARDIOVASCULAR: RRR. No lower extremity edema. GI: No hernia, masses, hepatosplenomegaly or lymphadenopathy. EXTREMITIES: No cyanosis, bilateral Le dependent edema. Pedal and radial pulses 2+ bilaterally. SKIN: Skin color, texture, turgor normal. No rashes or lesions. MUSCULOSKELETAL Muscular strength intact. Range of motion normal in hips, knees, shoulders, and spine; except right leg with previous THR. No joint swelling, deformity, or tenderness. NEUROLOGICAL: LOC: 0 - alert and responsive 0 LOC Questions: 2 - none correct 2 LOC Commands: 0 - both correct 0 LOC Normal Gaze: 0 - normal gaze 0 Visual Moesley: 0 - no visual loss 0 Facial Palsy: 0 - normal 0 Motor Left Arm: 0 - no drift 0 Motor Right Arm: 0 - no drift 0 Motor Left Le - drift but does not hit bed 1 Motor Right Le - drift but does not hit bed 1 Limb Ataxia: 0 - no ataxia (or aphasic, hemiplegic) 0 Sensory: 0 - normal 0 Language: 0 - normal 0 Dysarthria: 0 - normal 0 Extinction/Neglect: 0 - normal, none detected (or visual loss alone) 0 Initial NIHSS: 4 (04/21/18 1715 : Melissa Quan) 4 MENTAL STATUS: Alert, oriented to person, hospital, not time, Follows commands and Speech fluent and appropriate Speech is Normal CRANIAL NERVES: PERRLA, EOM's intact, Visual moseley intact to confrontation, Facial sensation intact, No facial droop or ptosis, Hearing intact to finger rub bilaterally, No dysarthria, Palate elevates symmetrically, Tongue protrudes midline and Shoulder shrug intact and symmetric MOTOR: No drift, Normal tone and Normal bulk MOTOR STRENGTH: Upper and lower extremity 5/5 bilaterally; except bilateral LE poor effort 4+/5 REFLEXES: UE and LE reflexes are equal and non-reactive SENSATION: Intact light touch and temperature COORDINATION: Finger-to- nose-finger intact bilaterally GAIT: Not assessed DATA: Diagnostic tests reviewed for today's visit: Lipids, HbA1c, CMP, CBC, Coags Cardiac Enzymes Most recent labs and imaging results. STROKE CARE PATH [facility] [employer] Date Patient Last Known Well: 04/20/18 Date of Patient Arrival at THIS Facility: 04/21/18 Time of Patient Arrival at THIS Facility: 1457 Cristal Coma Scale Totals (Calculated): 14 STROKE 9 CARE AND PREVENTION CHECKLIST 1. Is the patient currently on an ANTITHROMBOTIC medication (Antiplatelet or Anticoagulant): None Reason Antithrombotic not prescribed: ICH and/or hemorrhagic stroke 2. Does the patient have known AFIB/FLUTTER: Chronic or Permanent atrial fibrillation 3. Is the patient on a STATIN: (atorvastatin 20 mg ) 4. Is the patient on VTE prophylaxis: Mechanical prophylaxis Mechanical intervention type: Intermittent compression stocking(s) 5. 6. Stroke BP Goals: SBP 130-160 Stroke BP Control: BP well controlled 7. Stroke IVF/Nutrition: Diet 8. TEMPERATURE Control: Normothermic 9. Does the patient need THERAPY: Yes Therapy involvement: PT;OT;ST Stroke Care and Prevention (personally reviewed by Melissa Quan APRN.BENNETT): Daily Rounding Date: 04/21/18 Daily Rounding Time: 1715 PROBLEM LIST: Active Problems: Hyperlipidemia POA: Yes Hypertension POA: Yes Dizziness POA: Yes SAH (subarachnoid hemorrhage) (HCC) POA: Yes Resolved Problems: * No resolved hospital problems. * Impression/Recommendations Jessica Hayden is a 82 year old, female, right handed patient. ? Fall ? Left caudate nucleus lesion (possible hemorrhage by [place] report) ? PAFIB- not on OAC due to unknown reasons; possible fall risk? ? HPL ? Dementia- lives with daughter and requires assist with ADLs; uses walker for ambulation Risk Factors Atrial Fibrillation Dyslipidemia Stroke Mechanism PLAN ? Repeat CTH now to follow up [place] imaging ? Load hair films into our system ? MRI B /MRA head and neck ? Hold asa until bleed ruled out ? Stroke work up ordered IV tPA was not recommended to be given to the patient, refer to Exclusion Criteria as documented in Stroke Care Path. Imaging Ordered Today: Repeat Head CT ordered for evolution of hemorrhage or Ischemic Stroke. MRI Brain ordered for TIA evaluation and IPH/SAH: evaluation for source of hemorrhage. MRA Head AND Neck ordered for focal neuro deficits within 8 hours + NIHSS > Than or Equal to 6 and intra and extracranial vasculature evaluation. Transthroacic Echo (TTE) ordered for Assess for Intracardiac Shunt Assess Overall Cardiac Function. SIGNATURE: Melissa Quan APRN.CNP PATIENT NAME: Jessica Hayden DATE: April 21, 2018 TIME: 5:28 PM PAGER/CONTACT #: [id number] [facility] STAFF PHYSICIAN NOTE OF PERSONAL INVOLVEMENT IN CARE I have reviewed the progress note obtained and documented by Melissa Quan CNP and I personally participated in the echavarria components. I have discussed the case and management of the patient's care. The following comments revise or confirm relevant echavarria components of the note. Agree with above, that patient is a poor historian. She has poor focus and attention, and when asked what happened yesterday she states I just slid down. Unfortunately her baseline level of function is not clear at this time. From records, patient was transferred from [facility] due to concern for possible Left Caudate ICH. She denies any head trauma, s/s of infection, change in medications. She denies headache, vision changes, speech changes. She does have history of afib, but she is denying use of anticoagulation with current list indicating that she takes ASA daily. The following systems were reviewed with the patient, and are unremarkable other than as described below. SYSTEMIC: No fever, chills, or change in weight or appetite HEENT: No recent change in vision or hearing. GI: No recent nausea, vomiting or diarrhea. : No recent hematuria or dysuria. SKIN: No recent itching or eruption. PSYCH: No recent active anxiety or depression. HEMATOLOGY/ONCOLOGY: No recent diagnosis of bleeding or cancer. ENDOCRINE: No recent diagnosis of DM or thyroid disease. RHEUMATOLOGY: No recent active connective tissue disease. NEURO: Denies lightheadedness, vertigo, loc, focal weakness - see HPI. She later tells me that she has a weak left arm, but its always weak. CARDIAC: Denies CP or palpitations. PULMONARY: Denies cough or shortness of breath. Blood pressure 138/63, pulse 86, temperature 36.5 ?C (97.7 ?F), temperature source Oral, resp. rate 18, height 152.4 cm (5'), weight 91.6 kg (201 lb 15.1 oz), SpO2 99 %. GENERAL EXAM: General appearance: NAD, pleasant. HEENT: NC/AT, nasal congestion absent, no oral lesions, membranes moist. NECK: No masses, supple. Lungs: CTA bilaterally. CV: Reg rate irreg rhythm. No carotid bruits. Abd: Soft, nontender, nondistended. Bowel sounds present. Extr: No cyanosis, clubbing or edema. No evidence of fasciculations. Skin: Cool to touch. No rash. NEUROLOGICAL EXAM: General: Awake, alert, oriented x2 (person,place), speech fluent, no dysarthria; comprehension, naming, repetition intact. CN: PERRL, fundi without evidence of papilledema, EOMI and without nystagmus, VFF to confrontation, facial sensation and strength are normal and symmetric, hearing is intact, palate and tongue movements are intact and symmetric. SCM and trapezius strength normal. Motor: Normal tone, bulk but strength 4+/5 throughout but 4/5 in LUE. Reflexes: 1/4 and symmetric, plantar stimulation is mute. Coordination: FNF, YESENIA intact. She does not cooperate with HTS. No tremors. Sensation: Light touch and pin intact throughout. Gait: Deferred due to patient condition and no assist available. CT Brain completed at [facility] since admit and agree with rad report as follows: There is no evidence for recent intracranial hemorrhage, mass lesion, or recent infarction. ?There is mild central atrophy. ?Furthermore, subcortical leukoencephalopathy is noted suggesting chronic microvascular ischemic disease. ? There is no skull fracture. ?The visualized portions of the paranasal sinuses and mastoid air cells are clear. Labs reviewed as above. Cholesterol, Total Date Value Ref Range Status 04/22/2018 73 0 - 199 mg/dL Final Comment: <200 Desirable 200-240 Borderline >240 High HDL Cholesterol Date Value Ref Range Status 04/22/2018 35 >40 mg/dL Final LDL Cholesterol Date Value Ref Range Status 05/17/2017 Test sent to [facility]. 60 - 129 mg/dL Final Comment: Account Credited HIDE LDL Calculated Date Value Ref Range Status 04/22/2018 29 mg/dL Final Comment: No CAD and with fewer than 2 CAD risk factors <160 mg/dL No CAD but with 2 or more CAD risk factors <130 mg/dL Definite CAD or other atherosclerotic disease <100 mg/dL Triglyceride Date Value Ref Range Status 04/22/2018 46 0 - 149 mg/dL Final Comment: < 200 Desirable Result invalid if not a fasting specimen. A/P: Patient with reported fall, and then concern for possible ICH on CT brain at [facility] as above. Currently patient feels at baseline and wanting to go home. Only abnormal finding on exam is LUE weakness as above, but per patient, this is baseline. Agree with plan as documented by A Avelina GUAJARDO. At this time, fall is of unclear etiology and may have been mechanical. However stroke risk factors including afib and LUE weakness on exam that is unclear if acute vs chronic. Thus recommend the following: -MRI B /MRA head and neck to evaluate for stroke and/or large vessel disease as etiology of symptoms. Also evaluate for ICH not visualized on CT brain here at [facility]. -Hold asa until bleed ruled out. If no bleed, then restart ASA daily. Suspect not on anticoagulation due to fall risk. -Continue current statin therapy (based on LDL and history of feeling ill on high dose statin in the past, would not increase dose) -BP goal <140/90 -Glucose goal <140. -ECHO to evaluate for cardio-embolic source of possible stroke. -Tele to evaluate for cardiac source of possible stroke. -Consult PT/OT/Speech therapy. -Dysphagia screen with advancement of diet per speech therapy. David Kelsey Jr, MD NURSING PROG Observed: 04/21/2018 Status: COMPLETED Source: [place]INTER 5:01 PM [facility] REPOSITORY HNO ID: [id number] Author: Rosamaria Whipple RN Service: Nursing Author Type: Registered Nurse Type: Nursing Progress Note Filed: 04/21/2018 5:03 PM Note Text: Nursing Progress Note Patient Name: Jessica Monreal [facility] Patient Location: [id number]/[id number]* Patient transported to [facility] with a castro placed at [facility] ER for accurate IANDO. The need for castro evaluated and meet the criteria to discontinue. This was discussed with Dr Bryant who was at patient bedside. This note was completed by: Rosamaria Whipple RN NURSING PROG Observed: 04/21/2018 Status: COMPLETED Source: PRINTER 4:59 PM [facility] REPOSITORY HNO ID: [id number] Author: Rosamaria Whipple RN Service: Nursing Author Type: Registered Nurse Type: Nursing Progress Note Filed: 04/21/2018 5:00 PM Note Text: Nursing Progress Note Patient Name: Jessica Monreal [facility] Patient [facility] [id number][id number] Bedside swallow screening completed and patient passed with no issues. This note was completed by: Rosamaria Whipple RN EMERGENCY DEPARTMENT Observed: 04/21/2018 Status: F Source: [place] SUMMARY 4:04 PM [facility] REPOSITORY [facility] Medical Records Department [address] [place] [address] Emergency Department Summary 04/21/18 1129 MR#: [id number] Acct: [id number] Name: JESSICA HAYDEN Rep #: [id number] : 1935 82 From: John Ayoub MD PCP: Carole Velasquez MD Status: DEP ER - ER Visit Summary Date of Service: 04/21/18 Chief Complaint: Dizziness History of Present Illness: The patient is a 82 F with dizziness this morning. She woke up at home. She felt dizzy like she was going to pass out. She sat down onto her couch. She had some mid back pain. She did not lose consciousness or have any seizure activity. She has a history of collapse and syncope. She is currently seeing a housefellow and has been wearing a cardiac technologist. It is unsure why she has these episodes. Physical Examination: Afebrile and vital signs unremarkable. Patient is in no acute distress. Head and neck atraumatic and nontender. Heart regular. Lungs clear. Abdomen soft. Diffuse lower thoracic and upper lumbar tenderness to palpation, overlying skin appears normal. Cranial nerves grossly intact. No focal weakness or numbness. Test Results: EKG showed sinus rhythm at a rate of 84. No sign of acute ischemia or infarction pattern. Hemoglobin 9.7, stable. CMP, coags, troponin all unremarkable. Chest x-ray showed bibasilar pulmonary nodules right side worse than left. Thoracic and lumbar spine x-rays unremarkable. CT brain showed a left caudate nucleus subtle hemorrhage versus artifact. Radiology recommends a repeat CT in 24 hours. Emergency Department Course and Treatment: Patient seen on arrival to the ED. No sign of stroke. Patient was monitored. Workup was all fairly unremarkable and stable. The patient has recently been treated for pneumonia. She is not having respiratory symptoms. CT had showed a possible hemorrhage versus artifact. Repeat CT was advised. Neurosurgery is not available at this facility. At the patient and family's request, I did call [facility] and the patient will be observed there. Patient also discussed with Dr. Andrade. His office will follow up with interrogation of her heart monitor. Treatment Plan: As above Disposition: Transfer Impression: 1. Dizziness 2. Intracerebral hemorrhage This note was generated with Any.DO dictation software. It may contain incorrect words, spelling, and punctuation that were not noted in review of the chart prior to signing ED Disposition - Plan for ED Patient: Disposition: [facility] Chief Complaint: Fall Referrals: Carole Velasquez MD [Primary Care Provider] - What to do if you have Problems For any increased pain, shortness of breath, bleeding, nausea or vomiting, chest pain, or any unexpected problems, contact your Primary Care Provider. Call [facility] ([phone]) or report to the closest Emergency Room. Call 911 if necessary. 04/21/18 1604 <Electronically signed by John Ayoub MD> Date John Ayoub MD Cosigner Signature (If Indicated): Date CC: Carole Velasquez MD TROPONIN I Collected: 04/21/2018 Status: F Source: [facility][1] 3:18 PM HEALTH SYSTEM REPOSITORY TYPE CODE TESTS RESULT OUT OF REFERENCE UNITS RANGE LAB TROP(LOINC) 0.015-0.045 ng/ml Troponin I < 0.015 Performed By: #### TROP #### [facility] [address] [place] [address] VITAMIN B12 Collected: 04/21/2018 Status: F Source: [facility][1] 3:18 PM HEALTH SYSTEM REPOSITORY TYPE CODE TESTS RESULT OUT OF REFERENCE UNITS RANGE LAB B12(LOINC) 193-986 pg/mL High Vitamin B12 1266 Performed By: #### B12 #### [facility] [address] [place], [place] [address] TSH, 3RD GENERATION Collected: 04/21/2018 Status: F Source: [facility][1] 3:18 PM HEALTH SYSTEM REPOSITORY TYPE CODE TESTS RESULT OUT OF REFERENCE UNITS RANGE LAB TSH3(LOINC 0.358-3.740 uIU/mL ) TSH, 3rd generation 1.770 Performed By: #### TSH3 #### [facility] [address] [place], [place] [address] HISTORY PHYSICAL Observed: 04/21/2018 Status: COMPLETED Source: [place] 2:57 PM CLINIC OTHER CAMPUS REPOSITORY HNO ID: [id number] Author: Huma Bryant Service: Hospital Medicine Author Type: Physician Type: HANDP Filed: 04/21/2018 3:37 PM Note Text: DEPARTMENT OF HOSPITAL MEDICINE HISTORY AND PHYSICAL EXAM SERVICE DATE: 04/21/2018 SERVICE TIME: 2:57 PM Primary Care Physician: CAROLE VELASQUEZ MD NIGHT AND WEEKEND COVERAGE: After 7pm, please call cross cover pager #[phone] Subjective CHIEF COMPLAINT: Dizziness and fall. HPI: This is a 82 year old female with history of dementia, A Fib, hyperlipidemia was brought from [place] with possible SAH. Patient is a very poor historian and has dementia. Per her daughter she was walking to the bathroom last night, became dizzy, fell backwards on the couch, did not hit her head. She was evaluated in [place] ED, CT of head suspicious for a small hemorrhage. Patient denies any headache, dizziness, sob, chest pain, weakness or tingling of extremities or speech problems. PAST MEDICAL HISTORY Diagnosis Date - Atrial fibrillation (HCC) - Dizziness and giddiness 09/25/2011 - Fracture, rib 07/19/2011 - Hyperlipidemia 09/14/2011 - Osteoporosis 08/10/2011 - PLANTAR Fasciitis 12/14/2005 PAST SURGICAL HISTORY Procedure Laterality Date - COLONOSCOP W/ OR W/O BRSH SPEC 01/22/2013 Colonoscopy - EGD W/O OR W/BRUSH/WASH 01/22/2013 EGD - REMV LENS MATERIAL,PHACOFRAGMT 03/2012 Cataract Extraction - right eye - Dr Garcia FAMILY HISTORY Problem Relation Age of Onset - Cancer Father - Cancer Mother lung,stomach,bowel - Heart Maternal Uncle enlarged - Hypertension Maternal Uncle - Stroke Maternal Uncle Social History Substance Use Topics - Smoking status: Never Smoker - Smokeless tobacco: Never Used - Alcohol use No MEDICATIONS: Reviewed ALLERGIES Allergen Reactions - Meclizine Other: See Comments - Seasonal Allergies Other: See Comments pollen REVIEW OF SYSTEM: Not able to complete due to dementia. Negative for headache, visual changes, weakness or tingling of extremities, chest pain or nausea. Objective PHYSICAL EXAM: BP 128/61 Pulse 83 Temp (Src) 97.5 (Oral) Resp 19 SpO2 99% GENERAL: Alert, no distress, cooperative SKIN: Skin color, texture, turgor normal. No rashes or lesions. HEENT: normocephalic, atraumatic, EOMI, BRITTNEY, sclerae anicteric NECK: No jugulovenous distention. Supple, no thyromegaly or lymphadenopathy. Trachea midline. LUNGS: Lungs clear to auscultation b/l, no wheezes, rhonchi or crackles. Good respiratory effort. CARDIAC: Normal S1 and S2; no rubs, murmurs, or gallops ABDOMEN: Abdomen soft, non-tender, BS normal, No masses or organomegaly EXTREMITIES: Extremities normal, no deformities, edema, clubbing or skin discoloration. Good capillary refill., No ulcers NEURO: Reflexes normal and symmetric. Sensation grossly intact, Cranial nerves II-XII intact DATA: Diagnostic tests reviewed for today's visit: Most recent labs and imaging results. Assessment/Plan Active Problems: SAH (subarachnoid hemorrhage) ([facility]) POA: Yes Assessment AND Plan: -neuro checks -neurology consult -will defer imaging studies to neurology, d/w DAYCARE DIRECTOR Dizziness POA: Yes Assessment AND Plan: resolved Hyperlipidemia POA: Yes Assessment AND Plan: -resume statins Hypertension POA: Yes Assessment AND Plan: -continue home medications VTE Prophylaxis: Pneumatic Compression Device Disposition: TBD Plan of care discussed with: Patient and RN SIGNATURE: Huma Bryant MD PATIENT NAME: Jessica Monreal [facility] DATE: April 21, 2018 TIME: 2:57 PM PAGER/CONTACT #: URINALYSIS, COMPLETE Collected: 04/21/2018 Status: F Source: [place] 10:25 AM [facility] REPOSITORY Order Comment: Order Date: 04/21/18 How was Urine Obtained? CATHETER SPECIMEN TYPE CODE TESTS RESULT OUT OF RANGE REFERENCE UNITS LAB L400.3000 Yellow COLOR Normal Yellow LAB L400.3050 Clear Normal CLARITY Clear LAB L400.3200 Normal mg/dl Normal GLUCOSE, UR Normal LAB L400.3300 Negative mg/dL Normal BILIRUBIN URINE Negative LAB L400.3400 Negative mg/dl Normal KETONE UR Negative LAB L400.3465 1.002-1.030 Normal SP.GR. DIPSTX 1.015 LAB L400.3550 5.0 - 8.0 pH UR Normal 6.5 LAB L400.3600 Negative mg/dl High PROT 15 DIPSTX LAB L400.3700 Normal mg/dl High 1 UROBILI LAB L400.3750 Negative Normal NITRITE UR Negative LAB L400.3780 Negative /ul Normal OCCULT BLOOD-UR Negative LAB L400.3800 Negative /ul High LEUK 25 ESTERASE LAB L400.4050 0-5 /hpf WBC Normal 0-5 SEEN LAB L400.4100 0-5 /hpf 0 Normal RBC-UA SEEN LAB L400.4150 5-10 /hpf SQUAM 0 Normal EPI SEEN LAB L400.4300 None Seen /hpf 0 Normal BACTERIA SEEN LAB L400.4350 <or=2+ /hpf 0 Normal MUCUS, URINE SEEN Performed By: #### L400.0001 #### [facility] [address] [place], [address] BRAIN/HEAD WITHOUT Observed: 04/21/2018 Status: F Source: [place] CONTRAST 7:10 AM [facility] REPOSITORY [facility] Imaging Services [address] [place] [address] Brain/Head without Contrast MR#: [id number] Acct: [id number] Name: JESSICA HAYDEN Rep #: [id number] : 1935 F 82 From: Misty Singh PCP: Carole Velasquze MD Status: REG ER Study: Brain/Head without Contrast Date of Exam: 04/21/18 Exam# [id number] Ordering Dr: John Ayoub MD STUDY: CT BRAIN WITHOUT CONTRAST REASON FOR EXAM: Female, 82 years old. Dizziness. Fall. RADIATION DOSAGE (If Supplied By Facility): CTDIvol = ( 44.99 ) mGy, DLP = ( 745.49 ) mGycm TECHNIQUE: Transaxial CT imaging of the brain was performed without administration of intravenous contrast material. Individualized dose optimization techniques were used for this CT. COMPARISON: CT head: 10/11/2016 FINDINGS: Normal soft tissue structures. Normal calvarium. There is moderate cerebral atrophy with widening of the extra- axial spaces and ventricular dilatation. There are areas of decreased attenuation within the white matter tracts of the supratentorial brain, consistent with microvascular disease changes. A small asymmetric relatively high density focus is seen laterally in the left caudate nucleus, probably a volume average artifact , otherwise no acute abnormality of the basal ganglia, thalami and brainstem is demonstrated. There is moderate cerebellar atrophy. There are no findings of an acute ischemic infarction. Normal visualized paranasal sinuses. CT/Brain/Head without Contrast IMPRESSION: 1. Chronic involutional and ischemic changes of the brain. 2. A small asymmetric somewhat high density focus seen laterally in the left caudate nucleus, probably an artifact, subtle focal hemorrhage is not completely ruled out. Follow-up with CT exam in 24 hours is recommended if indicated clinically. Electronically Signed: Maddison Singh MD at 8:21 EDT Tel , Service support , CC: Carole Velasquez MD; John Ayoub MD Tennis Ball Cover Cementer: Signed THORACIC SPINE 3 Observed: 04/21/2018 Status: F Source: [place] VIEWS 7:10 AM [facility] REPOSITORY [facility] Imaging Services [address] [place] [address] Thoracic Spine 3 Views MR#: [id number] Acct: [id number] Name: JESSICA HAYDEN Rep #: [id number] : 1935 F 82 From: Misty Singh PCP: Carole Velasquez MD Status: REG ER Study: Thoracic Spine 3 Views Date of Exam: 04/21/18 Exam# [id number] Ordering Dr: John Ayoub MD STUDY: X-RAY - THORACIC SPINE REASON FOR EXAM: Female, 82 years old. Back pain. TECHNIQUE: 3 view(s) of the thoracic spine were obtained. COMPARISON: None. FINDINGS: There is an increase in the normal thoracic kyphosis. There is no substantial scoliosis. There is demineralization of the thoracic spine with multilevel mild endplate spondylosis. There is mid thoracic vertebral mild wedging. There is multilevel mild/moderate disc space narrowing of the thoracic spine. The soft tissue structures are unremarkable. RAD/Thoracic Spine 3 Views IMPRESSION: Osteopenia. Increased thoracic kyphosis. Multilevel mild/moderate degenerative thoracic spondylosis. Electronically Signed: Maddison Singh MD at 8:27 EDT Tel , Service support , CC: Carole Velasquez MD; John Ayoub MD Tennis Ball Cover Cementer: Signed LUMBAR SPINE 2 OR 3 Observed: 04/21/2018 Status: F Source: [place] VIEWS 7:10 AM [facility] REPOSITORY [facility] Imaging Services [address] [place] [address] Lumbar Spine 2 or 3 Views MR#: [id number] Acct: [id number] Name: JESSCIA HAYDEN Rep #: [id number] : 1935 F 82 From: Misty Singh PCP: Carole Velasquez MD Status: REG ER Study: Lumbar Spine 2 or 3 Views Date of Exam: 04/21/18 Exam# [id number] Ordering Dr: John Ayoub MD STUDY: X-RAY - LUMBAR SPINE REASON FOR EXAM: Female, 82 years old. Back pain. TECHNIQUE: 3 view(s) of the lumbar spine were obtained. COMPARISON: None FINDINGS: Normal lumbar lordosis. There is a mild dextroscoliosis of the lumbar spine. There is a normal alignment of the vertebrae. There is diffuse demineralization with multi-level endplate spondylosis. There is T11, T12, L1, L2 and L3 vertebral mild compression deformity. There is multi-level degenerative disc disease with mild/moderate disc space narrowing. Possible neural foraminal stenosis at L3- L4, L4-L5 and L5-S1 levels. There is atherosclerotic calcification of the abdominal aorta without a demonstrated aneurysm. Increased colonic and rectosigmoid stool volume. RAD/Lumbar Spine 2 or 3 Views IMPRESSION: Osteoporosis, degenerative changes of the spine, as detailed above. Electronically Signed: Maddison Singh MD at 8:30 EDT Tel , Service support , CC: Carole Velasquez MD; John Ayoub MD Tennis Ball Cover Cementer: Signed CHEST 1 VIEW Observed: 04/21/2018 Status: F Source: [place] (PORTABLE) 7:10 AM [facility] REPOSITORY [facility] Imaging Services [address] [place] [address] Chest 1 View (Portable) MR#: [id number] Acct: [id number] Name: JESSICA HAYDEN Rep #: [id number] : 1935 F 82 From: Misty Singh PCP: Carole Velasquez MD Status: REG ER Study: Chest 1 View (Portable) Date of Exam: 04/21/18 Exam# [id number] Ordering Dr: John Ayoub MD STUDY: X-RAY CHEST REASON FOR EXAM: Female, 82 years old. Dizziness. TECHNIQUE: Single AP portable view of the chest. COMPARISON: 04/16/2018 FINDINGS: There is hyperinflation of the lungs possibly with chronic obstructive lung disease (COPD). Bibasilar interstitial/pneumonic infiltrates are demonstrated. There is no demonstrated pleural abnormality. Normal size heart. There are calcified mediastinal lymph nodes. Normal visualized pulmonary arteries. There is atherosclerotic calcification of the aortic arch with tortuosity. There is demineralization of the osseous structures. There is increased thoracic kyphosis. There is no demonstrated abnormality of the visualized soft tissue structures of the upper abdomen. RAD/Chest 1 View (Portable) IMPRESSION: 1. Bibasilar pulmonary nodular interstitial infiltrates, right side more than the left. 2. Possible COPD. 3. Osteopenia. Increased thoracic kyphosis. 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 CBC W/DIFF, AUTOMATED Collected: 04/21/2018 Status: F Source: [place] 6:57 AM [facility] REPOSITORY TYPE CODE TESTS RESULT OUT OF RANGE REFERENCE UNITS LAB L100.1000 4.4-11.0 K/mm3 Normal WBC 8.1 LAB L100.1200 4.2-5.4 M/mm3 Low RBC 3.28 LAB L100.1300 12.0-15.0 g/dl Low HGB 9.7 LAB L100.1400 37-47 % Low HCT 31.4 LAB L100.1500 81-99 fL Normal MCV 95.7 LAB L100.1600 27.0-32.0 pg Normal MCH 29.6 LAB L100.1700 32-36 g/gl Low MCHC 30.9 LAB L100.1810 11.6-14.6 % High RDW CV 15.2 LAB L100.1820 35.1-43.9 fl High RDW SD 51.3 LAB L100.1900 150-450 K/mm3 Normal PLT 404 LAB L100.2000 6.2-12.0 fl Normal MPV 10.3 LAB L100.2100 47-70 % High NEUT% 75.3 LAB L100.2200 19-41 % Low LY% 11.9 LAB L100.2300 0-10 % Normal MONO% 10.0 LAB L100.2400 0-5 % Normal EO% 2.3 LAB L100.2500 0-1 % Normal BASO% 0.4 LAB L100.2550 0.0-0.9 % Normal IM GRAN % 0.100 Result Comment: IG% - Immature Granulocytes (promyelocytes, myelocytes and metamyelocytes) > 1% indicates that a LEFT SHIFT is Present. LAB L100.2620 2.0-7.7 X10 3/uL Normal Absolute Neut 6.1 LAB L100.2720 0.83-4.51 X10 3/ul Normal Absolute Lymph 0.97 Performed By: #### L100.0100 #### [facility] [address] [place], [place], [id number] PROTHROMBIN TIME W/INR Collected: 04/21/2018 Status: F Source: [place] 6:57 AM [facility] REPOSITORY TYPE CODE TESTS RESULT OUT OF RANGE REFERENCE UNITS LAB L300.4150 11.7-14.9 SECONDS Normal PROTIME 14.5 LAB L300.4200 Normal INR 1.1 Performed By: #### L300.3900, L300.4310 #### [facility] [address] [place], [place], [address] PARTIAL THROMBOPLAST Collected: 04/21/2018 Status: F Source: [facility] 6:57 AM [facility] REPOSITORY TYPE CODE TESTS RESULT OUT OF RANGE REFERENCE UNITS LAB L300.4310 24.1-36.2 Seconds Normal PTT 30.0 Performed By: #### L300.3900, L300.4310 #### [facility] [address] [place], [place], [id number] COMPREHENSIVE METABOLIC Collected: 04/21/2018 Status: F Source: [place] PROFIL 6:57 AM [facility] REPOSITORY TYPE CODE TESTS RESULT OUT OF RANGE REFERENCE UNITS LAB L501.0100 74-106 mg/dL Normal GLU 100 Result Comment: Fasting Glucose result from 100 to 125 mg/dL suggests IMPAIRED HOMEOSTASIS per A.D.A. criteria. Please note revised GLUCOSE reference range effective 2017. LAB L501.1000 7-18 mg/dL Normal BUN 18 LAB L501.1100 0.55-1.02 mg/dL Low CREAT,SERUM 0.41 Result Comment: The validity of the calculated GFR AND GFRAA in patients over 70 years has not been determined. Clinical correlation is essential. LAB L501.1110 >60 mL/min Normal EST GFR 156 Result Comment: Non- GFR Calc LAB L501.1115 >60 mL/min Normal EST GFR - AA 189 Result Comment: GFR Calc LAB L501.1255 ml/min Normal Estimated CRCL 27.47 LAB L501.1300 10-20 RATIO High BUN/CRE 43.6 LAB L501.1500 6.4-8. g/dL Normal 2 T PROT 6.7 LAB L501.1800 3.2-5. g/dL Low 0 ALB 2.9 LAB L501.1950 2.2-4. g/dL Normal 2 GLOB 3.8 LAB L501.2000 0.9-2. RATIO Low 4 A/G 0.8 LAB L501.2200 8.5-10 mg/dL Normal .1 CA 8.6 LAB L501.4100 15-37 U/L Normal AST 25 LAB L501.4305 45-117 U/L Normal ALK P 102 LAB L501.4405 13-56 U/L Normal ALT 32 LAB L501.4600 0.20-1 mg/dL Normal .00 T BILI 0.60 LAB L501.5300 136-14 mmol/L Normal 5 NA 139 LAB L501.5600 3.5-5. mmol/L Normal 1 K 3.7 LAB L501.5900 98-107 mmol/L Normal CL 102 LAB L501.6100 21.0-3 mmol/L Normal 2.0 CO2 29.0 LAB L501.6200 5-15 Normal GAP 8 Performed By: #### L500.4050, L501.4010 #### [facility] [address] [place], [address] TROPONIN-I Collected: 04/21/2018 Status: F Source: [place] 6:57 AM [facility] REPOSITORY TYPE CODE TESTS RESULT OUT OF RANGE REFERENCE UNITS LAB L501.4010 <0.045 ng/mL Normal < 0.015 TROPONIN-I Result Comment: TROPONIN-I EXPECTED VALUES <0.045 Negative 0.045 - 0.590 Consistent with Cardiac Damage > OR = 0.600 Critical Value Not every elevated troponin is indicative of [place]. These values should be used with clinical judgement in examining the patient's clinical picture for diagnosis. To establish a diagnosis of [place] versus myocardial injury, there must be a demonstrated rise and/or fall in the troponin values, in addition to ischemic symptoms, EKG changes, new regional wall motion abnormality, and/or angiographical evidence. PLEASE NOTE: REFERENCE RANGES EDITED 17 Performed By: #### L500.4050, L501.4010 #### [facility] [address] [place], [address] EMERGENCY DEPARTMENT Observed: 04/17/2018 Status: F Source: [place] SUMMARY 12:23 AM [facility] REPOSITORY [facility] Medical Records Department [address] [place] [address] Emergency Department Summary 04/16/18 1802 MR#: [id number] Acct: [id number] Name: JESSICA HAYDEN Rep #: [id number] : 1935 82 From: Yahaira Robbins MD PCP: Carole Velasquez MD Status: DEP ER - ER Visit Summary Date of Service: 04/16/18 Chief Complaint: Shortness of breath History of Present Illness: The patient is a 82 F who was recently admitted for pneumonia April 09 through the . Home nurse today noted her pulse ox ranging between 88 and 89% on room air. She went to urgent care. Aerosol was given but no improvement was noted in her oxygen saturation. Patient still has moist cough. She has not had fever or chills. Physical Examination: Blood pressure is 115/61, temperature 96.9, heart rate 105, respiratory rate 16, pulse ox 92% on room air in triage. Patient sitting upright in bed. She is in no acute distress and speaking full sentences. Heart is regular rate and rhythm. Lung sounds are slightly diminished at the bases. Abdomen is soft nontender. Test Results: Two-view chest x-ray revealed hyperinflation. There is atelectasis and/or infiltrates the bilateral bases, worse on right. When I compared this to her most recent x-ray. There is significant improvement. CBC was normal white count with hemoglobin 10.1. Chemistry studies normal. Emergency Department Course and Treatment: When I entered the room I placed the patient on pulse ox. Her initial sat was 93%. While we talk she dropped her oxygen level to 87% on room air. She is placed on 2 L nasal cannula and sats are in the upper 90s. Social work was able to arrange for outpatient oxygen to be delivered here and then taken to her home. I did speak with Dr. Cedeno, on-call for the patient's primary care physician. Treatment Plan: [] Disposition: Discharge Impression: Mild hypoxia This note was generated with Any.DO dictation software. It may contain incorrect words, spelling, and punctuation that were not noted in review of the chart prior to signing ED Disposition - Plan for ED Patient: Chief Complaint: Shortness of Breath Referrals: Carole Velasquez MD [Primary Care Provider] - What to do if you have Problems For any increased pain, shortness of breath, bleeding, nausea or vomiting, chest pain, or any unexpected problems, contact your Primary Care Provider. Call [facility] ([phone]) or report to the closest Emergency Room. Call 911 if necessary. 04/17/18 0023 <Electronically signed by Yahaira Robbins MD> Date Yahaira Robbins MD Cosigner Signature (If Indicated): Date CC: Carole Velasquez MD DISCHARGE INSTRUCTION Observed: 04/16/2018 Status: F Source: [place] 6:06 PM [facility] REPOSITORY [facility] Medical Records Department [address] [place] [address] Discharge Instruction 04/16/18 1805 MR#: [id number] Acct: [id number] Name: SATISHJESSICA Rep #: [id number] : 1935 82 From: Yahaira Robbins MD PCP: Carole Velasquez MD Status: REG ER ED Disposition - Plan for ED Patient: Disposition: Home or Assisted Living Chief Complaint: Shortness of Breath Instructions: Using Oxygen at Home Referrals: Carole Velasquez MD [Primary Care Provider] - 1 Week What to do if you have Problems For any increased pain, shortness of breath, bleeding, nausea or vomiting, chest pain, or any unexpected problems, contact your Primary Care Provider. Call [facility] ([phone]) or report to the closest Emergency Room. Call 911 if necessary. 04/16/18 1806 <Electronically signed by Yahaira Robbins MD> Date Yahaira Robbins MD Cosigner Signature (If Indicated): Date CC: Carole Velasquez MD CBC-COMPLETE BLOOD CNT Collected: 04/16/2018 Status: F Source: [place] NO DIFF 3:25 PM [facility] REPOSITORY TYPE CODE TESTS RESULT OUT OF RANGE REFERENCE UNITS LAB L100.1000 4.4-11.0 K/mm3 Normal WBC 7.3 LAB L100.1200 4.2-5.4 M/mm3 Low RBC 3.39 LAB L100.1300 12.0-15.0 g/dl Low HGB 10.1 LAB L100.1400 37-47 % Low HCT 32.4 LAB L100.1500 81-99 fL Normal MCV 95.6 LAB L100.1600 27.0-32.0 pg Normal MCH 29.8 LAB L100.1700 32-36 g/gl Low MCHC 31.2 LAB L100.1810 11.6-14.6 % High RDW CV 15.3 LAB L100.1820 35.1-43.9 fl High RDW SD 51.0 LAB L100.1900 150-450 K/mm3 Normal PLT 425 LAB L100.2000 6.2-12.0 fl Normal MPV 9.6 Performed By: #### L100.0500 #### [facility] [address] [place], [address] BASIC METABOLIC Collected: 04/16/2018 Status: F Source: [place] PROFILE (BMP) 3:25 PM [facility] REPOSITORY TYPE CODE TESTS RESULT OUT OF RANGE REFERENCE UNITS LAB L501.0100 74-106 mg/dL Normal GLU 99 Result Comment: Please note revised GLUCOSE reference range effective 2017. LAB L501.1000 7-18 mg/dL High BUN 19 LAB L501.1100 0.55-1.02 mg/dL Low CREAT,SERUM 0.54 Result Comment: The validity of the calculated GFR AND GFRAA in patients over 70 years has not been determined. Clinical correlation is essential. LAB L501.1110 >60 mL/min Normal EST GFR 113 Result Comment: Non- GFR Calc LAB L501.1115 >60 mL/min Normal EST GFR - AA 137 Result Comment: GFR Calc LAB L501.1255 ml/min Normal Estimated CRCL 29.61 LAB L501.1300 10-20 RATIO High BUN/CRE 34.9 LAB L501.2200 8.5-10 mg/dL Normal .1 CA 8.8 LAB L501.5300 136-14 mmol/L Low 5 NA 135 LAB L501.5600 3.5-5. mmol/L Normal 1 K 3.9 LAB L501.5900 98-107 mmol/L Normal CL 100 LAB L501.6100 21.0-3 mmol/L Normal 2.0 CO2 26.0 LAB L501.6200 5-15 Normal GAP 9 Performed By: #### L500.2500 #### [facility] [address] [place], [address] CHEST PA AND LATERAL Observed: 04/16/2018 Status: F Source: [place] 3:18 PM [facility] REPOSITORY [facility] Imaging Services [address] [address] Chest PA and Lateral MR#: [id number] Acct: [id number] [facility] Rep #: [id number] : 1935 F 82 From: Nguyễn Paz MD PCP: Carole Velasquez MD Status: PRE ER Study: Chest PA and Lateral Date of Exam: 04/16/18 Exam# [id number] Ordering Dr: Provider, Ed P. STUDY: X-RAY CHEST REASON FOR EXAM: Female, 82 years old. Cough and shortness of breath. TECHNIQUE: PA and lateral views of the chest. COMPARISON: Comparison is made with prior study dated April 09, 2018. FINDINGS: EKG electrodes are seen. Pectus excavatum deformity. Hyperinflation. Stable increased markings at the lung bases slightly worse on the right side suggestive of possible bibasilar infiltrates and/or atelectasis. Follow-up is recommended. There is no demonstrated pleural abnormality. Normal size heart. Normal mediastinum and theresa. Normal visualized pulmonary arteries. Normal visualized aortic arch and descending thoracic aorta. There are diffuse degenerative changes of the visualized thoracic spine. Normal visualized ribs, clavicles, and shoulders. There is no demonstrated abnormality of the visualized soft tissue structures of the upper abdomen. RAD/Chest PA and Lateral IMPRESSION: Hyperinflation. Findings suggestive of bibasilar atelectasis and/or infiltrates worse on the right side. Electronically Signed: Nguyễn Paz MD at 15:48 EDT Tel [phone], Service support , CC: Carole Velasquez MD; ED PHYSICIAN PROVIDER Tennis Ball Cover Cementer: Signed PROGRESS Observed: 04/16/2018 Status: COMPLETED Source: [place] 2:20 PM [facility] REPOSITORY O ID: [id number] Author: Kasie Moody Service: (none) Author Type: Nurse Practitioner Type: Progress Notes Filed: 04/16/2018 2:37 PM Note Text: Subjective HPI HPI Jessica Hayden is a 82 year old female who presents today after being seen by home health nurse for low oxygen saturation and decreased breath sounds. She was discharged 04/11 for [facility] after being treated for pneumonia/superinfection per [facility] notes. She is also having a cough. She is currently on levaquin and benzonatate. BP 100/60 Pulse 80 Temp 36.8 ?C (98.3 ?F) (Tympanic) Resp 18 SpO2 90% ALLERGIES Allergen Reactions - Meclizine Other: See Comments - Seasonal Allergies Other: See Comments pollen ACTIVE PROBLEM LIST Osteoporosis Hyperlipidemia Dizziness and Giddiness Small Vessel Disease Pvc (Premature Ventricular Contraction) Hypertension Weight Loss Memory Deficits Family History Problem Relation Age of Onset - Cancer Father - Cancer Mother lung,stomach,bowel - Heart Maternal Uncle enlarged - Hypertension Maternal Uncle - Stroke Maternal Uncle Social History Marital status: Spouse name: Years of education: Number of children: Social History Main Topics Smoking status: Never Smoker Smokeless tobacco: Never Used Alcohol use: No Drug use: No Sexual activity: No PAST MEDICAL HISTORY Diagnosis Date - Atrial fibrillation (HCC) - Dizziness and giddiness 09/25/2011 - Fracture, rib 07/19/2011 - Hyperlipidemia 09/14/2011 - Osteoporosis 08/10/2011 - PLANTAR Fasciitis 12/14/2005 Review of Systems Constitutional: Negative. Negative for chills, fever and malaise/fatigue. HENT: Negative for congestion, ear pain, sinus pain and sore throat. Respiratory: Positive for cough and shortness of breath. Negative for sputum production and wheezing. Cardiovascular: Negative for chest pain. Musculoskeletal: Negative for myalgias. Skin: Negative for rash. Neurological: Negative for headaches. Objective Physical Exam Constitutional: She is well-developed, well-nourished, and in no distress. HENT: Head: Normocephalic and atraumatic. Right Ear: Tympanic membrane, external ear and ear canal normal. Tympanic membrane is not injected, not erythematous, not retracted and not bulging. No middle ear effusion. Left Ear: Tympanic membrane, external ear and ear canal normal. Tympanic membrane is not injected, not erythematous, not retracted and not bulging. No middle ear effusion. Nose: Nose normal. Right sinus exhibits no maxillary sinus tenderness and no frontal sinus tenderness. Left sinus exhibits no maxillary sinus tenderness and no frontal sinus tenderness. Mouth/Throat: Uvula is midline, oropharynx is clear and moist and mucous membranes are normal. No oropharyngeal exudate, posterior oropharyngeal edema, posterior oropharyngeal erythema or tonsillar abscesses. Eyes: Pupils are equal, round, and reactive to light. Conjunctivae and EOM are normal. Neck: Normal range of motion. Cardiovascular: Normal rate, regular rhythm and normal heart sounds. Pulmonary/Chest: Effort normal and breath sounds normal. No respiratory distress. She has no wheezes. She has no rales. Lymphadenopathy: Head (right side): No submental, no submandibular, no tonsillar, no preauricular and no posterior auricular adenopathy present. Head (left side): No submental, no submandibular, no tonsillar, no preauricular and no posterior auricular adenopathy present. She has no cervical adenopathy. Right cervical: No posterior cervical adenopathy present. Left cervical: No posterior cervical adenopathy present. Right: No supraclavicular adenopathy present. Left: No supraclavicular adenopathy present. Skin: Skin is warm and dry. Psychiatric: Affect normal. Nursing note and vitals reviewed. no acute distress albuterol nebulizer treatment done with no change, PO2 88- 90%, discuss with daughter will go to [place] ER for further treatment, and evaluation. Report called to Gerardo Robbins MD at [facility] ASSESSMENT/PLAN: 1. Low oxygen saturation - ICD9: 790.91, ICD10: R79.81 (primary diagnosis) - ALBUTEROL SULFATE 2.5 MG/3 ML (0.083 %) SOLUTION FOR NEBULIZATION 2. Decreased breath sounds - ICD9: 786.7, ICD10: R06.89 - ALBUTEROL SULFATE 2.5 MG/3 ML (0.083 %) SOLUTION FOR NEBULIZATION Recommend patient be seen at nearest ED for further work up of low oxygen saturation. Patient transported to [facility] via private car, daughter with her, Refused ambulence. Diagnosis and treatment plan were discussed and questions were answered to the patient's satisfaction. Pt acknowledged understanding of concepts and follow up plan. Specific signs and symptoms that would indicate the need for higher level of care were discussed in detail warranting prompt ER evaluation. Kasie Moody APRN.RUG REPAIRER CNOV Observed: 04/16/2018 Status: COMPLETED Source: PRINTER 2:00 PM [facility] REPOSITORY Office Visit (WSTR) JESSICA HAYDEN ([id number]) 1935 F Date Time Provider Department 04/16/18 2:00 PM KASIE MOODY ([facility] During your visit today, we recorded the following information about you: Temperature Pulse Respiration Blood pressure 98.3 degrees 80/minute 18/minute 100/60 Kasie Moody APRN.CNP 04/16/2018 2:37 PM Signed Subjective HPI HPI Jessica Hayden is a 82 year old female who presents today after being seen by home health nurse for low oxygen saturation and decreased breath sounds. She was discharged 04/11 for [facility] after being treated for pneumonia/superinfection per [facility] notes. She is also having a cough. She is currently on levaquin and benzonatate. BP 100/60 Pulse 80 Temp 36.8 ?C (98.3 ?F) (Tympanic) Resp 18 SpO2 90% ALLERGIES Allergen Reactions - Meclizine Other: See Comments - Seasonal Allergies Other: See Comments pollen ACTIVE PROBLEM LIST Osteoporosis Hyperlipidemia Dizziness and Giddiness Small Vessel Disease Pvc (Premature Ventricular Contraction) Hypertension Weight Loss Memory Deficits Family History Problem Relation Age of Onset - Cancer Father - Cancer Mother lung,stomach,bowel - Heart Maternal Uncle enlarged - Hypertension Maternal Uncle - Stroke Maternal Uncle Social History Marital status: Spouse name: Years of education: Number of children: Social History Main Topics Smoking status: Never Smoker Smokeless tobacco: Never Used Alcohol use: No Drug use: No Sexual activity: No PAST MEDICAL HISTORY Diagnosis Date - Atrial fibrillation (HCC) - Dizziness and giddiness 09/25/2011 - Fracture, rib 07/19/2011 - Hyperlipidemia 09/14/2011 - Osteoporosis 08/10/2011 - PLANTAR Fasciitis 12/14/2005 Review of Systems Constitutional: Negative. Negative for chills, fever and malaise/fatigue. HENT: Negative for congestion, ear pain, sinus pain and sore throat. Respiratory: Positive for cough and shortness of breath. Negative for sputum production and wheezing. Cardiovascular: Negative for chest pain. Musculoskeletal: Negative for myalgias. Skin: Negative for rash. Neurological: Negative for headaches. Objective Physical Exam Constitutional: She is well-developed, well-nourished, and in no distress. HENT: Head: Normocephalic and atraumatic. Right Ear: Tympanic membrane, external ear and ear canal normal. Tympanic membrane is not injected, not erythematous, not retracted and not bulging. No middle ear effusion. Left Ear: Tympanic membrane, external ear and ear canal normal. Tympanic membrane is not injected, not erythematous, not retracted and not bulging. No middle ear effusion. Nose: Nose normal. Right sinus exhibits no maxillary sinus tenderness and no frontal sinus tenderness. Left sinus exhibits no maxillary sinus tenderness and no frontal sinus tenderness. Mouth/Throat: Uvula is midline, oropharynx is clear and moist and mucous membranes are normal. No oropharyngeal exudate, posterior oropharyngeal edema, posterior oropharyngeal erythema or tonsillar abscesses. Eyes: Pupils are equal, round, and reactive to light. Conjunctivae and EOM are normal. Neck: Normal range of motion. Cardiovascular: Normal rate, regular rhythm and normal heart sounds. Pulmonary/Chest: Effort normal and breath sounds normal. No respiratory distress. She has no wheezes. She has no rales. Lymphadenopathy: Head (right side): No submental, no submandibular, no tonsillar, no preauricular and no posterior auricular adenopathy present. Head (left side): No submental, no submandibular, no tonsillar, no preauricular and no posterior auricular adenopathy present. She has no cervical adenopathy. Right cervical: No posterior cervical adenopathy present. Left cervical: No posterior cervical adenopathy present. Right: No supraclavicular adenopathy present. Left: No supraclavicular adenopathy present. Skin: Skin is warm and dry. Psychiatric: Affect normal. Nursing note and vitals reviewed. no acute distress albuterol nebulizer treatment done with no change, PO2 88- 90%, discuss with daughter will go to [place] ER for further treatment, and evaluation. Report called to Gerardo Robbins MD at [facility] ASSESSMENT/PLAN: 1. Low oxygen saturation - ICD9: 790.91, ICD10: R79.81 (primary diagnosis) - ALBUTEROL SULFATE 2.5 MG/3 ML (0.083 %) SOLUTION FOR NEBULIZATION 2. Decreased breath sounds - ICD9: 786.7, ICD10: R06.89 - ALBUTEROL SULFATE 2.5 MG/3 ML (0.083 %) SOLUTION FOR NEBULIZATION Recommend patient be seen at nearest ED for further work up of low oxygen saturation. Patient transported to [facility] via private car, daughter with her, Refused ambulence. Diagnosis and treatment plan were discussed and questions were answered to the patient's satisfaction. Pt acknowledged understanding of concepts and follow up plan. Specific signs and symptoms that would indicate the need for higher level of care were discussed in detail warranting prompt ER evaluation. Kasie Moody APRN.BENNETT Sandy Ma 04/16/2018 2:34 PM Signed 2.5 solution aerosol treatment given per doctor's orders. Prior to treatment O2 Sat is 90%. Treatment completed. O2 sat is 90%. Tolerated well. Catrina Sandy Ma Referring Provider: SELF [[id number]] Allergies As of Date: 04/16/2018 Noted Allergy Reaction MECLIZINE 09/14/2011 14 - Other: See Comments SEASONAL ALLERGIES 02/03/2014 14 - Other: See Comments Comments: pollen Date Reviewed: 04/16/2018 Reviewed by: Kasie Moody - Fully Assessed Reason for Visit: Cough [28] Cmt: dismissed from hospital for pneumonia has not felt good since sunday Primary Visit Diagnosis:Low oxygen saturation [R79.81] Other Visit Diagnosis:Decreased breath sounds [R06.89] Order(s):[] albuterol 2.5 mg /3 mL (0.083 %) 2.5 mg (PROVENTIL)Disp: Rfl: Prescriptions as of 04/16/2018 Sig: CHOLECALCIFEROL (VITAMIN D3) * Take 1 capsule by mouth twice* VALSARTAN 40 MG TABLET Take 1 tablet by mouth once d* RANITIDINE 150 MG TABLET TAKE 1 TABLET TWICE DAILY for* ATORVASTATIN 20 MG TABLET TAKE 1 TABLET EVERY DAY for c* ALENDRONATE 70 MG TABLET Take 1 tablet by mouth once e* CALCIUM 500 MG TABLET Take 1 tablet by mouth once d* [id number]-[id number]-KTOV-MINERALS* Take 1 tablet by mouth once d* ASPIRIN 81 MG TABLET Take 81 mg by mouth once олег* ACETAMINOPHEN 500 MG TABLET Take 500 mg by mouth every 6 * BENZONATATE 100 MG CAPSULE Take 1 capsule by mouth three* Patient not taking: Reported on 04/16/2018 Problem List As Of Date 04/16/2018 Noted Resolved PLANTAR Fasciitis [M72.2] INVALID FOR*01/15/2017 Sprain of foot, unspecified site [S93.609A] INVALID FOR*10/29/2014 Pain in limb [M79.609] INVALID FOR*10/29/2014 Fracture, rib [S22.39XA] INVALID FOR*10/29/2014 Osteoporosis [M81.0] INVALID FOR* More... Hyperlipidemia [E78.5] INVALID FOR* More... Dizziness and giddiness [R42] INVALID FOR* More... Small vessel disease [I99.9] INVALID FOR* More... PVC (premature ventricular contraction) [I49.3] INVALID FOR* More... Hypertension [I10] INVALID FOR* More... Weight loss [R63.4] INVALID FOR* More... Memory deficits [R41.3] INVALID FOR* Visit Notes: >> Catrina Sandy Ma [place] Apr 16, 2018 2:34 PM Status: Signed 2.5 solution aerosol treatment given per doctor's orders. Prior to treatment O2 Sat is 90%. Treatment completed. O2 sat is 90%. Tolerated well. Catrina Sandy Ma Prescriptions ordered this encounter Disp Refills Start End ALBUTEROL SULFATE 2.5 MG/3 ML (0.083* 04/16/2018 04/16/2018 Route: INHALATION Encounter Status:Closed by KASIE MOODY CNP on 04/16/18 12 LEAD ELECTROCARDIOGRAM Observed: 04/16/2018 Status: F Source: [place] 1:10 PM [facility] REPOSITORY [facility] Cardiovascular Services [address] [place] [address] 12 Lead EKG 04/09/183 MR#: [id number] Acct: [id number] Name: JESSICA HAYDEN Rep #: [id number] : 1935 82 From: John Andrade MD Attending Dr: Remi Gallardo M.D. Status: DIS IN Ordering Dr: Irving Sánchez MD Date: 04/09/18 [place] [facility] [place] [facility] [place] Sex: F C Admitted: 04/09/18 Test Reason : Blood Pressure : / mmHG Vent. Rate : 097 BPM Atrial Rate : 097 BPM P-R Int : 000 ms QRS Dur : 070 ms QT Int : 354 ms P-R-T Axes : 000 056 063 degrees QTc Int : 449 ms Sinus with artifact Septal infarct , age undetermined Abnormal ECG Confirmed by JOHN ANDRADE ([id number]), assistant editor SANTIAGO CUTLER ([id number]) on 04/16/2018 1:09:55 PM Referred By: INA Confirmed By:JOHN ANDRADE 04/16/18 1309 Date John Andrade MD CC: Carole Vealsquez MD; Remi Gallardo M.D.; Irving Sánchez MD Signed DISCHARGE INSTRUCTION Observed: 04/11/2018 Status: F Source: [place] 12:30 PM [facility] REPOSITORY [facility] Medical Records Department [address] [place] [address] Instructions for Home/Discharge Instructions 04/11/18 1010 MR#: [id number] Acct: [id number] Name: JESSICA HAYDEN Rep #: [id number] : 1935 82 From: Remi Gallardo MD PCP: Carole Velasquez MD Status: ADM IN ADDENDUM by Remi Gallardo M.D. on 04/11/18 at 1230 Diet - mechanical soft with thickened liquids Discharge instructions - follow up with speech therapy in 1 week Date Remi Gallardo MD cc: Carole Velasquez MD * Signed - Discharge Diagnoses Current Active Problems: Current Active and Chronic Problems (This Medical Record has been edited. Action required.) Acute viral and bacterial bronchitis (acute) Sepsis (Acute) You will use the following diet at home:: No restrictions Discharge Activity: Return to Normal Activity Allergies/Adverse Reactions: Allergies No Known Allergies Allergy (Verified 04/09/18 21:49) Medications to take at Discharge Atorvastatin Calcium [Lipitor] 20 mg PO QHS 05/15/13 Ranitidine [Zantac] 150 mg PO BID 05/15/13 Vit D3/Folic Acid/B2/B6/B12 [Folgard Tablet] 1 tab PO MO 05/15/13 Acetaminophen [Tylenol Extra Strength] 500 mg PO Q6H PRN PRN 10/11/16 Aspirin [Aspirin, Baby] 81 mg PO DAILY@0800 10/11/16 Multivitamin [Daily Multiple Vitamin] 1 ea PO DAILY 10/11/16 alendronate 70 mg tablet 70 mg PO QWEEK 02/18/18 ergocalciferol (vitamin D2) 50,000 unit tablet 50,000 unit PO MOFR tab 02/18/18 Calcium Carbonate/Vitamin D3 [Calcium 250-Vit D3 125 Tablet] 1 each PO DAILY 02/20/18 Ascorbic Acid [Vitamin C] 500 mg PO DAILY@0800 tab 02/26/18 Iron Polysaccharide Complex [Ferrex 150] 150 mg PO DAILYCM cap 02/26/18 Oxycodone [Oxyir] 5 mg PO Q4H PRN PRN 5 Days #30 tab 02/26/18 losartan 25 mg tablet 25 mg PO QDAY 03/27/18 Dextromethorphan Polistirex [12-Hour Cough Relief] 60 mg PO BID 10 Days #200 mls 04/11/18 levoFLOXacin tablet [Levaquin tablet] 250 mg PO DAILY 3 Days #3 tab 04/11/18 The following prescriptions were given: levoFLOXacin tablet [Levaquin tablet] 250 mg PO DAILY 3 Days #3 tab Dextromethorphan Polistirex [12-Hour Cough Relief] 60 mg PO BID 10 Days #200 mls Please follow up with your Primary Care Physician in: 1-2 weeks Test Results: Test results from this visit will be discussed in further detail at your follow-up appointment, if applicable. 04/11/18 1017 <Electronically signed by Remi Gallardo MD> Date Remi Gallardo MD CC: Carole Velasquez MD DISCHARGE SUMMARY Observed: 04/11/2018 Status: F Source: [place] 10:33 AM [facility] REPOSITORY [facility] Medical Records Department [address] [place] [address] Discharge Summary 04/11/18 1027 MR#: [id number] Acct: [id number] Name: JESSICA HAYDEN Rep #: [id number] : 1935 82 From: Remi Gallardo MD PCP: Carole Velasquez MD Status: ADM IN Y Location[place] [facility] [place] [facility] [place] EF695-7 Discharge Date and Diagnosis - Problem List Patient Problems: Active and Suspected Problems (This Medical Record has been edited. Action required.) Pneumonia (Acute) Sepsis (Acute) Acute bronchitis (Acute) Date of Admission: 04/09/18 Date of Discharge: 04/11/18 - Primary Discharge Diagnosis Active and Suspected Problems (This Medical Record has been edited. Action required.) Acute bronchitis Pneumonia (Acute) Sepsis (Acute) - Secondary Discharge Diagnosis Chronic Problems (This Medical Record has been edited. Action required.) Dizziness (Chronic) Closed right hip fracture (Chronic) 02/21/18 OR w/ R hip hemiarthroplasty per Dr. Cabezas Osteoporosis (Chronic) Hypertension (Chronic) Dyslipidemia (Chronic) Malnutrition (Chronic) Premature atrial contractions (Chronic) Hyperlipidemia (Chronic) Paroxysmal atrial fibrillation (Chronic) Dementia (Chronic) Aortic valve disorder (Chronic) HTN (hypertension) (Chronic) Hospital Course and Treatment Operations: None, - Procedures: None Summary of Care Provided: The patient is a 82 year old F admitted on account of cough and low grade fever and feeling unwell with only minor breathing difficulties. On exam was mild wheezing and a few transmitted sounds CXR showed no acute abnormalities. Patient initially diagnosed with pneumonia and started on antibiotics and breathing treatments. On further evaluation determined that this was more of an acute bronchitis. Initially viral and then some bacterial superinfection Doing better today and is stable for discharge Will complete 3 more days of oral antibiotics and other supportive treatments[] Discharge Diet: No Restrictions Discharge Activity: Return to Normal Activity Home Medications: Medications to take at Discharge Atorvastatin Calcium [Lipitor] 20 mg PO QHS 05/15/13 Ranitidine [Zantac] 150 mg PO BID 05/15/13 Vit D3/Folic Acid/B2/B6/B12 [Folgard Tablet] 1 tab PO MO 05/15/13 Acetaminophen [Tylenol Extra Strength] 500 mg PO Q6H PRN PRN 10/11/16 Aspirin [Aspirin, Baby] 81 mg PO DAILY@0800 10/11/16 Multivitamin [Daily Multiple Vitamin] 1 ea PO DAILY 10/11/16 alendronate 70 mg tablet 70 mg PO QWEEK 02/18/18 ergocalciferol (vitamin D2) 50,000 unit tablet 50,000 unit PO MOFR tab 02/18/18 Calcium Carbonate/Vitamin D3 [Calcium 250-Vit D3 125 Tablet] 1 each PO DAILY 02/20/18 Ascorbic Acid [Vitamin C] 500 mg PO DAILY@0800 tab 02/26/18 Iron Polysaccharide Complex [Ferrex 150] 150 mg PO DAILYCM cap 02/26/18 Oxycodone [Oxyir] 5 mg PO Q4H PRN PRN 5 Days #30 tab 02/26/18 losartan 25 mg tablet 25 mg PO QDAY 03/27/18 Dextromethorphan Polistirex [12-Hour Cough Relief] 60 mg PO BID 10 Days #200 mls 04/11/18 levoFLOXacin tablet [Levaquin tablet] 250 mg PO DAILY 3 Days #3 tab 04/11/18 Following Prescrptions Were Given to Patient: levoFLOXacin tablet [Levaquin tablet] 250 mg PO DAILY 3 Days #3 tab Dextromethorphan Polistirex [12-Hour Cough Relief] 60 mg PO BID 10 Days #200 mls Primary Care Physician: Carole Velasquez MD [Primary Care Provider] - Please follow up with your Primary Care Physician in: 1-2 weeks Medical Necessity - Tobacco Use Smoking Status: Never smoker Tobacco Use: Non-smoker Meaningful Use Info Meaningful Use Diagnoses (Choose all that apply): None applicable Code Visit Inpatient E AND M: 67271 Disch Hosp 04/11/18 1033 <Electronically signed by Remi Gallardo MD> Date Remi Gallardo MD Cosigner Signature (if applicable): Date CC: Carole Velasquez MD; Remi Gallardo M.D. Signed CBC W/DIFF, AUTOMATED Collected: 04/10/2018 Status: F Source: [place] 6:04 AM [facility] REPOSITORY TYPE CODE TESTS RESULT OUT OF RANGE REFERENCE UNITS LAB L100.1000 4.4-11.0 K/mm3 Normal WBC 9.6 LAB L100.1200 4.2-5.4 M/mm3 Low RBC 2.85 LAB L100.1300 12.0-15.0 g/dl Low HGB 8.3 LAB L100.1400 37-47 % Low HCT 26.9 LAB L100.1500 81-99 fL Normal MCV 94.4 LAB L100.1600 27.0-32.0 pg Normal MCH 29.1 LAB L100.1700 32-36 g/gl Low MCHC 30.9 LAB L100.1810 11.6-14.6 % High RDW CV 15.4 LAB L100.1820 35.1-43.9 fl High RDW SD 53.6 LAB L100.1900 150-450 K/mm3 Normal PLT 312 LAB L100.2000 6.2-12.0 fl Normal MPV 9.5 LAB L100.2100 47-70 % High NEUT% 78.7 LAB L100.2200 19-41 % Low LY% 12.3 LAB L100.2300 0-10 % Normal MONO% 8.3 LAB L100.2400 0-5 % Normal EO% 0.4 LAB L100.2500 0-1 % Normal BASO% 0.2 LAB L100.2550 0.0-0.9 % Normal IM GRAN % 0.100 Result Comment: IG% - Immature Granulocytes (promyelocytes, myelocytes and metamyelocytes) > 1% indicates that a LEFT SHIFT is Present. LAB L100.2620 2.0-7.7 X10 3/uL Normal Absolute Neut 7.6 LAB L100.2720 0.83-4.51 X10 3/ul Normal Absolute Lymph 1.18 Performed By: #### L100.0100 #### [facility] [address] [place], [address] BASIC METABOLIC Collected: 04/10/2018 Status: F Source: [place] PROFILE (BMP) 6:04 AM [facility] REPOSITORY TYPE CODE TESTS RESULT OUT OF RANGE REFERENCE UNITS LAB L501.0100 74-106 mg/dL High GLU 108 Result Comment: Fasting Glucose result from 100 to 125 mg/dL suggests IMPAIRED HOMEOSTASIS per A.D.A. criteria. Please note revised GLUCOSE reference range effective 2017. LAB L501.1000 7-18 mg/dL Normal BUN 12 LAB L501.1100 0.55-1.02 mg/dL Low CREAT,SERUM 0.36 Result Comment: The validity of the calculated GFR AND GFRAA in patients over 70 years has not been determined. Clinical correlation is essential. LAB L501.1110 >60 mL/min Normal EST GFR 185 Result Comment: Non- GFR Calc LAB L501.1115 >60 mL/min Normal EST GFR - AA 224 Result Comment: GFR Calc LAB L501.1255 ml/min Normal Estimated CRCL 29.74 LAB L501.1300 10-20 RATIO High BUN/CRE 33.7 LAB L501.2200 8.5-10 mg/dL Low .1 CA 8.0 LAB L501.5300 136-14 mmol/L Normal 5 NA 145 LAB L501.5600 3.5-5. mmol/L Normal 1 K 3.7 LAB L501.5900 98-107 mmol/L High CL 110 LAB L501.6100 21.0-3 mmol/L Normal 2.0 CO2 27.0 LAB L501.6200 5-15 Normal GAP 8 Performed By: #### L500.2500 #### [facility] [address] [place], [place], [address] Observed: 04/10/2018 Status: F Source: [place] RESPIRATORY PANEL 2:45 AM [facility] MOLECULAR REPOSITORY RP PANEL RESULTS CALLED TO Alexi DAVISON 04/10/18 Lulú [place]. REPORT READ BACK BY JAZZY. Copy of report sent to Infection Control Printer [id number] 04/10/18 Bailey9 KRISTEN. Normal Reference Range = Not Detected ADENOVIRUS Not Detected HUMAN METAPHNEUMO Not Detected INFLUENZA A Not Detected INFLUENZA A (SUBTYPE H1) Not Detected INFLUENZA A (SUBTYPE H3) Not Detected INFLUENZA B Not Detected PARAINFLUENZA 1 Not Detected PARAINFLUENZA 2 Not Detected PARAINFLUENZA 3 Not Detected PARAINFLUENZA 4 Not Detected RHINOVIRUS Positive for RHINOVIRUS by NAAT technology RSV A Not Detected RSV B Not Detected NAAT METHOD Testing was performed using nucleic acid amplification Performed By: #### M100.638 #### [facility] [address] [place], [address] EMERGENCY DEPARTMENT Observed: 04/10/2018 Status: F Source: [place] SUMMARY 1:43 AM [facility] REPOSITORY [facility] Medical Records Department [address] [place] [address] Emergency Department Summary 04/09/18 2329 MR#: [id number] Acct: [id number] Name: JESSICA HAYDEN Rep #: [id number] : 1935 82 From: Irving Sánchez MD PCP: Carole Velasquez MD Status: ADM IN - ER Visit Summary Date of Service: 04/09/18 Chief Complaint: Fever and cough History of Present Illness: The patient is a [address] Velasquez. She is a poor informant. Per EMS she was getting a sponge bath tonight and lost her footing. She did not fall. She was helped to the floor by her daughter. She reports she is lightheaded. She denies any vertigo. On upon their arrival they found the patient had a fever. Patient does admit to a cough. It is difficult to figure out timeframe of the fever or cough. Physical Examination: Vitals: 101.8, 145/71, 98, 19, 90% on 2 L nasal cannula. General: Well-nourished and well-developed. Head: Normocephalic atraumatic. Neck: Supple, no lymphadenopathy. No JVD. Nontender. Cardiovascular: Regular rate and rhythm. 2 out of 6 systolic murmur. Respiratory: No respiratory distress. Rhonchi at the bases bilaterally. Abdominal: Soft, nontender, nondistended, normal bowel sounds. No guarding, rebound, or peritoneal signs. Back: Nontender. Extremities: Nontender, 1+ edema over lower extremity bilaterally. Skin: Normal color, no rash. Neurologic: Alert and oriented 3. Cranial nerves II through XII are intact. Normal strength and sensation. Psych: Normal affect. Test Results: EKG is sinus at 97 and is unchanged from November. UA is negative. LFTs marked for an albumin of 2.8, ALT of 66, AST 55. Coags are normal. Chem-7 is more for glucose 122, BUN 20, creatinine 0.47. CBC is marked for an H AND H 9.2-9.4, 7 neutrophils 81, lymphs lites of 8. Lactic acid 1.0. Chest x-ray shows increased density lung bases atelectasis or infiltrate. Emergency Department Course and Treatment: Clinically the patient has pneumonia. I believe that these findings in her lung bases are infiltrate. She has been admitted to the hospital in February. Therefore, this is a healthcare acquired pneumonia. She was given Zosyn and vancomycin IV. She was given Tylenol for her fever. Treatment Plan: Patient was discussed with Dr. Moreno. She will be admitted to the hospital for further evaluation and treatment. Disposition: Admitted in serious condition. Impression: 1. Pneumonia, healthcare acquired. 2. Sepsis. This note was generated with Any.DO dictation software. It may contain incorrect words, spelling, and punctuation that were not noted in review of the chart prior to signing ED Disposition - Plan for ED Patient: Chief Complaint: Dizziness Referrals: Carole Velasquez MD [Primary Care Provider] - What to do if you have Problems For any increased pain, shortness of breath, bleeding, nausea or vomiting, chest pain, or any unexpected problems, contact your Primary Care Provider. Call [facility] ([phone]) or report to the closest Emergency Room. Call 911 if necessary. 04/10/18 0143 <Electronically signed by Irving Sánchez MD> Date Irving Sánchez MD Cosigner Signature (If Indicated): Date CC: Carole Velasquez MD HISTORY AND PHYSICAL Observed: 04/10/2018 Status: F Source: [place] EXAM 12:59 AM [facility] REPOSITORY [facility] Medical Records Department [address] [place] [address] History and Physical 04/09/188 MR#: [id number] Acct: [id number] Name: JESSICA HAYDEN Rep #: [id number] : 1935 82 From: Coni Moreno PCP: Carole Velasquez MD Status: ADM IN Y Location: MS2 [id number] Problem List (1) Pneumonia Status: Acute Qualifiers: Pneumonia type: due to unspecified organism Laterality: bilateral Lung location: lower lobe of lung Qualified Code(s): J18.1 - Lobar pneumonia, unspecified organism (2) Sepsis Status: Acute Qualifiers: Sepsis type: sepsis due to unspecified organism Qualified Code(s): A41.9 - Sepsis, unspecified organism (3) Closed right hip fracture Status: Chronic Qualifiers: Encounter type: subsequent encounter Fracture healing: with routine healing Qualified Code(s): S72.001D - Fracture of unspecified part of neck of right femur, subsequent encounter for closed fracture with routine healing Comment: 02/21/18 OR w/ R hip hemiarthroplasty per Dr. Cabezas (4) Osteoporosis Status: Chronic Qualifiers: Osteoporosis type: unspecified Presence of current pathological fracture: unspecified Qualified Code(s): M81.0 - Age-related osteoporosis without current pathological fracture (5) Dyslipidemia Status: Chronic (6) Malnutrition Status: Chronic Qualifiers: Malnutrition type: protein-calorie malnutrition Protein- calorie malnutrition severity: severe Qualified Code(s): E43 - Unspecified severe protein- calorie malnutrition (7) Anemia Status: Acute Qualifiers: Anemia type: iron deficiency Iron deficiency anemia type: unspecified iron deficiency Qualified Code(s): D50.9 - Iron deficiency anemia, unspecified (8) Premature atrial contractions Status: Chronic (9) Hyperlipidemia Status: Chronic Qualifiers: Hyperlipidemia type: pure hypercholesterolemia Qualified Code(s): E78.00 - Pure hypercholesterolemia, unspecified; E78.0 - Pure hypercholesterolemia (10) Dementia Status: Chronic Qualifiers: Dementia type: unspecified type Dementia behavioral disturbance: without behavioral disturbance Qualified Code(s): F03.90 - Unspecified dementia without behavioral disturbance (11) Aortic valve disorder Status: Chronic (12) HTN (hypertension) Status: Chronic Qualifiers: Hypertension type: essential hypertension Qualified Code(s): I10 - Essential (primary) hypertension History of Present Illness Date of Admission: 04/09/18 Chief Complaint: Weakness, Cough The patient is a 82 y/o F w/ PMHx: HTN, HLD, OA, Moderate- Severe Protein-Calorie Malnutrition, 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 PAF versus Paroxsymal atrial contractions, Dementia unclear type w/ no behavioral disturbance history, GERD who presents to the [facility] ED on 04/09/18 with history of ongoing harsh cough, not markedly productive, increasing weakness, fatigue, malaise since recent SNF discharge on 04/03/18 following rehabilitation for recent acute R hip fracture s/p 02/21/18 OR w/ R hip hemiarthroplasty per Dr. Cabezas. She had no fevers while at home but notable T elevation upon ED presentation. Daughter noted worsened fatigue and generalized weakness the evening prior to ED presentation while giving a sponge bath with patient admitted lightheadedness with increased exertion. In the ED work-up included T101.8, heart rate 112, BP 145/71, respiratory rate 18, initially 91% on room air, CBC with WBC 10.5, hemoglobin 9.2, platelet 338 with left shift, coags with PTT 39.4, CMP with BUN/creatinine 20/0.47, glucose 122, lactic acid 1.0, AST/ALT 55/66, urinalysis with evidence of mild dehydration otherwise no acute findings, chest x-ray with chronic COPD changes and suspected bilateral lower lobe infiltrates. ED patient administered vancomycin, Zosyn, Tylenol, normal saline. Past Medical History Past Medical History (Chronic Problems): Chronic Problems (This Medical Record has been edited. Action required.) Dizziness (Chronic) Closed right hip fracture (Chronic) 02/21/18 OR w/ R hip hemiarthroplasty per Dr. Cabezas Osteoporosis (Chronic) Hypertension (Chronic) Dyslipidemia (Chronic) Malnutrition (Chronic) Premature atrial contractions (Chronic) Hyperlipidemia (Chronic) Paroxysmal atrial fibrillation (Chronic) Dementia (Chronic) Aortic valve disorder (Chronic) HTN (hypertension) (Chronic) Medical History: Medical History (This Medical Record has been edited. Action required.) Dizziness (Chronic) R42 Closed right hip fracture (Acute) S72.001A Osteoporosis (Chronic) M81.0 Hypertension (Chronic) I10 Dyslipidemia (Chronic) E78.5 Near syncope (Acute) R55 Malnutrition (Chronic) E46 Anemia (Acute) D64.9 Premature atrial contractions (Acute) I49.1 Hyperlipidemia (Chronic) E78.5 Paroxysmal atrial fibrillation (Chronic) I48.0 Syncope and collapse (Acute) R55 Near syncope (Acute) Dementia (Chronic) F03.90 Aortic valve disorder (Chronic) I35.9 HTN (hypertension) (Chronic) I10 Premature ventricular contraction I49.3 TIA (transient ischemic attack) G45.9 BPPV (benign paroxysmal positional vertigo) H81.10 History of cerebellar ataxia Z86.69 Allergies No Known Allergies Allergy (Verified 04/09/18 21:49) Home Medications: Ambulatory Orders Medication Instructions Recorded Atorvastatin Calcium [Lipitor] 20 mg PO QHS 05/15/13 Ranitidine [Zantac] 150 mg PO BID 05/15/13 Vit D3/Folic Acid/B2/B6/B12 1 tab PO MO 05/15/13 Surgical History: Surgical History (This Medical Record has been edited. Action required.) h/o right hip surgery History of cataract surgery Z98.49 Surgical History: - - Cataract surgery, 02/21/18 OR w/ R hip hemiarthroplasty per Dr. Cabezas. 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 Action required.) Sister Diabetes Daughter Atrial fibrillation History Items: Cancer Paternal Family History: Family History (This Medical Record has been edited. Action required.) Sister Diabetes Daughter Atrial fibrillation History Items: Cancer Sibling Family History: Family History (This Medical Record has been edited. Action required.) Sister Diabetes Daughter Atrial fibrillation History Items: No pertinent history Review of Systems Constitutional: Reports: Fever, Malaise, Weakness, Fatigue. Denies: Chills, Weight Change HEENT: Denies: Head Aches, Sinus Congestion, Sinus Drainage Cardiovascular: Denies: Chest Pain, Palpitations Respiratory: Reports: Cough. Denies: Shortness of Breath, Shortness of breath at rest, Shortness of breath upon exertion, Sputum production, Wheezing Gastrointestinal: Denies: Abdominal Pain, Nausea, Vomiting Genitourinary: Denies: Dysuria Musculoskeletal: Reports: Back Pain, Joint stiffness, Joint Tenderness, Leg Pain. Denies: Joint Pain Skin: Reports: Skin Changes. Denies: Rash, Wounds Neurological: Denies: Numbness, Tingling, Focal weakness Psychiatric: Denies: Anxiety, Depression, Homicidal Ideations, Suicidal Ideations Hematologic/ Lymphatic: Reports: Anemia. Denies: Easy Bruising, Easy Bleeding VTE Information - Inpt Only VTE Present on Admission: No VTE Mechan Device Prophylaxis: SCD's VTE Pharm Prophylaxis ordered?: Yes Patient Problems: Active and Suspected Problems (This Medical Record has been edited. Action required.) Pneumonia (Acute) Sepsis (Acute) Subjective: Fatigued appearance, seated upright in the ED bed, NAD. Objective: Physical Examination: General: awake, alert, oriented x 3 and cooperative, seated upright in the ED bed, in no apparent distress. Skin: normal color, turgor, no icterus, cyanosis except R Hip w/ incision C/D/I. HEENT: AT/NC, EOMI, PERRLA, mildly dry MM, no carotid bruit or increased JVD. Lungs: Diminished BS BL, > bases, mildly coarse BL bases, no wheezing, decreased effort. Heart: Regular rate and rhythm; no gallop, rub audible. Abdomen: soft, thin habitus, cachectic appearing, NTTP, ND, normal BS. Extremities: no cyanosis, clubbing, see skin. Neurological: patient awake, alert, oriented x 3; cognitive function intact; pupils equally reactive to light and accomodation; cranial nerves II-XII grossly normal, moving all 4 extremities although limited given recent fx s/p operative intervention, strength accordingly severely globally decreased. Psychiatric: affect appears fatigued, mildly flat, no acute evidence of depressive or anxiety feelings. - Physical Exam Vital Signs Temp Pulse Resp BP Pulse Ox 101.1 F H 98 19 H 145/71 H 98 04/09/18 22:41 04/09/18 22:41 04/09/18 22:41 04/09/18 21:49 04/09/18 22:41 Oxygen Flow Rate (L/min) 2 Oxygen Delivery Method Nasal Cannula Weight: 97 lb 10.636 oz Body Mass Index (BMI) 18.4 Finger Stick Blood Glucose 131 Laboratory Tests Past 24 Hrs WBC 10.5 RBC 3.15 L Hgb 9.2 L Hct 29.4 L MCV 93.3 MCH 29.2 MCHC 31.3 L RDW 15.6 H WBC RBC Hgb Hct MCV MCH MCHC RDW RDW Differential Plt Count MPV Immature Gran % (Auto) Neut % (Auto) Assessment/Plan All Active Problems (This Medical Record has been edited. 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 PAF versus Paroxsymal atrial contractions, Dementia unclear type w/ no behavioral disturbance history, GERD who presents to the [facility] ED on 04/09/18 with history of ongoing harsh cough, not markedly productive, increasing weakness, fatigue, malaise since recent SNF discharge on 04/03/18 following rehabilitation for recent acute R hip fracture s/p 02/21/18 OR w/ R hip hemiarthroplasty per Dr. Cabezas. She had no fevers while at home but notable T elevation upon ED presentation. (1) Acute Sepsis secondary to HCAP Pneumonia, Possible GN Organism: ED work-up included T101.8, heart rate 112, BP 145/71, respiratory rate 18, initially 91% on room air, CBC with WBC 10.5, hemoglobin 9.2, platelet 338 with left shift, coags with PTT 39.4, CMP with BUN/creatinine 20/0.47, glucose 122, lactic acid 1.0, AST/ALT 55/66, urinalysis with evidence of mild dehydration otherwise no acute findings, chest x-ray with chronic COPD changes and suspected bilateral lower lobe infiltrates. Will admit to [facility], maintain on oxygen with wean as tolerated to room air, continue ATC duonebs, PRN albuterol, maintained on IV Zosyn and Vancomycin given recent hospitalization w/ de-escalation as able, HOB, IS parameters w/ pending sputum cultures, respiratory viral panel and urine antigens. Bld cx x 2 obtained in the ED. PT, OT, CM for discharge planning, expect will likely need return to SNF. (2) Chronic Normocytic Anemia: Admission Hgb 9.2, stable compared to recent s/p OR w/ required 2 u PRBC following, repeat CBC in AM. Maintain on Fe supplementation. 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 (4) Hypertension: Continue home regimen including Diovan, PRN hydralazine. (5) Hyperlipidemia: Continue home statin regimen. (6) Recent R Hip Fx: s/p 02/21/18 OR w/ R hip hemiarthroplasty per Dr. Cabezas, maintain on fall precautions, PT, OT, CM for discharge planning, PRN pain regimen. Given this presentation expect likely will need return to SNF. (7) Moderate-Severe Calorie-Protein Malnutrition: Evidenced per habitus, BMP, continued on ensure, MVI, nutrition consulted. (8) PAF versus paroxysmal atrial contractions: EKG SR, unclear history, would not be appropriate anticoagulation patient regardless secondary to recurrent fall history. (9) Dementia, unclear type w/ no behavioral disturbance history: Frequent re-orientation as needed, not on medication regimen. (10) DVT Prophylaxis: SCDs, lovenox. (11) CODE status: Discussed CODE status at length including difference between FULL code, DNR-CCA and DNR-CC status. Following discussions about the differences in these status, confirmed living will and HCPOA (Daughter) in place, requested FULL CODE status. Advanced Care Planning Face to Face Time: 18 minutes. Code Visit Inpatient E AND M: 24614 Init Hosp L3 Procedures: 73192 Advncd Care Plan 30 Min 04/10/18 0059 <Electronically signed by Coni Moreno > Date Coni Moreno Cosigner Signature: Date (if applicable) CC: Coni Moreno; Carole Velasquez MD Signed MAGNESIUM Collected: 04/09/2018 Status: F Source: HAIR 10:38 PM [facility] REPOSITORY TYPE CODE TESTS RESULT OUT OF RANGE REFERENCE UNITS LAB L501.5200 1.6-2.6 mg/dL Normal MG 2.0 Performed By: #### L501.5200 #### [facility] [address] [place], [place], [address] Observed: 04/09/2018 Status: F Source: HAIR CULTURE, BLOOD (WB) 10:38 PM [facility] REPOSITORY BC No growth in 5 days. Performed By: #### M200.1000 #### [facility] [address] [place], [address] URINALYSIS, COMPLETE Collected: 04/09/2018 Status: F Source: HAIR 10:25 PM [facility] REPOSITORY Order Comment: Order Date: 04/09/18 How was Urine Obtained? CATHETER SPECIMEN TYPE CODE TESTS RESULT OUT OF RANGE REFERENCE UNITS LAB L400.3000 Yellow COLOR Normal Yellow LAB L400.3050 Clear Normal CLARITY Sl. Cloudy LAB L400.3200 Normal mg/dl Normal GLUCOSE, UR Normal LAB L400.3300 Negative mg/dL Normal BILIRUBIN URINE Negative LAB L400.3400 Negative mg/dl Normal KETONE UR Negative LAB L400.3465 1.002-1.030 Normal SP.GR. DIPSTX 1.020 LAB L400.3550 5.0 - 8.0 pH UR Normal 5.0 LAB L400.3600 Negative mg/dl High PROT 15 DIPSTX LAB L400.3700 Normal mg/dl High 1 UROBILI LAB L400.3750 Negative Normal NITRITE UR Negative LAB L400.3780 Negative /ul High 10 OCCULT BLOOD-UR LAB L400.3800 Negative /ul High LEUK 25 ESTERASE LAB L400.4050 0-5 /hpf WBC Normal 0-5 SEEN LAB L400.4100 0-5 /hpf Normal RBC-UA 0-5 SEEN LAB L400.4150 5-10 /hpf SQUAM Normal EPI 0-5 SEEN LAB L400.4300 None Seen /hpf 0 Normal BACTERIA SEEN LAB L400.4350 <or=2+ /hpf 0 Normal MUCUS, URINE SEEN Performed By: #### L400.0001 #### [facility] [address] [place], [address] Observed: 04/09/2018 Status: F Source: HAIR LEGIONELLA ANTIGEN 10:25 PM [facility] URINE REPOSITORY Specimen Source: URINE, CATHETER Legionella, UR Legionella Antigen result interpretation: Negative Presumptive negative for Legionella pneumophila serogroup 1 antigen in urine, suggesting no recent or current infection. Legionella Ag, Urine Negative (See interpretation below) Performed By: #### M300.4500 #### [facility] [address] [place], [address] STREP Observed: 04/09/2018 Status: F Source: [place] PNEUMONIAE ANTIG(UR,CSF) 10:25 PM [facility] REPOSITORY S pneumo Ag URINE INTERPRETATION Negative Urine Presumptive negative for pneumococcal pneumonia, suggesting no current or recent pneumococcal infection. Infection due to S pneumoniae cannot be ruled out since the antigen present in the sample may be below the detection limit of the test. Strep pneumo Test Negative URINE (See interpretation below) Performed By: #### M300.4600 #### [facility] [place], [address] Observed: 04/09/2018 Status: F Source: HAIR CULTURE, URINE 10:25 PM [facility] REPOSITORY Order Date: 04/09/18 Urine Culture Culture exhibits no growth. Performed By: #### M100.0650 #### [facility] [address] [place] [address], [address] CHEST 1 VIEW Observed: 04/09/2018 Status: F Source: HAIR (PORTABLE) 10:10 PM [facility] REPOSITORY [facility] Imaging Services [address] [place] [address] Chest 1 View (Portable) MR#: [id number] Acct: [id number] Name: SATISHJESSICA Rep #: [id number] : 1935 F 82 From: Damion Walsh MD PCP: Carole Velasquez MD Status: REG ER Study: Chest 1 View (Portable) Date of Exam: 04/09/18 Exam# [id number] Ordering Dr: Irving Sánchez MD STUDY: X-RAY CHEST REASON FOR EXAM: Female, 82 years old. Dizziness TECHNIQUE: Single AP portable view of the chest. COMPARISON: 10/11/2016. FINDINGS: There is hyperinflation of the lungs consistent with chronic obstructive lung disease (COPD). Mild increased density in both lung bases, suggestive of mild atelectasis or infiltrate. No effusions. There is no demonstrated pleural abnormality. Normal size heart. Normal mediastinum and theresa. Normal visualized pulmonary arteries. Normal visualized aortic arch and descending thoracic aorta. Normal visualized thoracic spine. Normal visualized ribs, clavicles, and shoulders. There is no demonstrated abnormality of the visualized soft tissue structures of the upper abdomen. RAD/Chest 1 View (Portable) IMPRESSION: COPD. Possible mild atelectasis or infiltrate in the lung bases. 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 CBC W/DIFF, AUTOMATED Collected: 04/09/2018 Status: F Source: HAIR 10:04 PM [facility] REPOSITORY TYPE CODE TESTS RESULT OUT OF RANGE REFERENCE UNITS LAB L100.1000 4.4-11.0 K/mm3 Normal WBC 10.5 LAB L100.1200 4.2-5.4 M/mm3 Low RBC 3.15 LAB L100.1300 12.0-15.0 g/dl Low HGB 9.2 LAB L100.1400 37-47 % Low HCT 29.4 LAB L100.1500 81-99 fL Normal MCV 93.3 LAB L100.1600 27.0-32.0 pg Normal MCH 29.2 LAB L100.1700 32-36 g/gl Low MCHC 31.3 LAB L100.1810 11.6-14.6 % High RDW CV 15.6 LAB L100.1820 35.1-43.9 fl High RDW SD 53.9 LAB L100.1900 150-450 K/mm3 Normal PLT 338 LAB L100.2000 6.2-12.0 fl Normal MPV 9.3 LAB L100.2100 47-70 % High NEUT% 81.4 LAB L100.2200 19-41 % Low LY% 8.7 LAB L100.2300 0-10 % Normal MONO% 8.7 LAB L100.2400 0-5 % Normal EO% 0.9 LAB L100.2500 0-1 % Normal BASO% 0.1 LAB L100.2550 0.0-0.9 % Normal IM GRAN % 0.200 Result Comment: IG% - Immature Granulocytes (promyelocytes, myelocytes and metamyelocytes) > 1% indicates that a LEFT SHIFT is Present. LAB L100.2620 2.0-7.7 X10 3/uL High Absolute Neut 8.6 LAB L100.2720 0.83-4.51 X10 3/ul Normal Absolute Lymph 0.92 Performed By: #### L100.0100 #### [facility] [address] [facility] [place], [place], [address] PROTHROMBIN TIME W/INR Collected: 04/09/2018 Status: F Source: [place] 10:04 PM [facility] REPOSITORY TYPE CODE TESTS RESULT OUT OF RANGE REFERENCE UNITS LAB L300.4150 11.7-14.9 SECONDS Normal PROTIME 14.7 LAB L300.4200 Normal INR 1.2 Performed By: #### L300.3900, L300.4310 #### [facility] [address] [place], [place], [address] PARTIAL THROMBOPLAST Collected: 04/09/2018 Status: F Source: [facility] 10:04 PM [facility] REPOSITORY TYPE CODE TESTS RESULT OUT OF REFERENCE UNITS RANGE LAB L300.4310 24.1-36.2 Seconds High PTT 39.4 Performed By: #### L300.3900, L300.4310 #### [facility] [address] [place], [address] COMPREHENSIVE METABOLIC Collected: 04/09/2018 Status: F Source: [facility] 10:04 PM [facility] REPOSITORY TYPE CODE TESTS RESULT OUT OF RANGE REFERENCE UNITS LAB L501.0100 74-106 mg/dL High GLU 122 Result Comment: Fasting Glucose result from 100 to 125 mg/dL suggests IMPAIRED HOMEOSTASIS per A.D.A. criteria. Please note revised GLUCOSE reference range effective 2017. LAB L501.1000 7-18 mg/dL High BUN 20 LAB L501.1100 0.55-1.02 mg/dL Low CREAT,SERUM 0.47 Result Comment: The validity of the calculated GFR AND GFRAA in patients over 70 years has not been determined. Clinical correlation is essential. LAB L501.1110 >60 mL/min Normal EST GFR 134 Result Comment: Non- GFR Calc LAB L501.1115 >60 mL/min Normal EST GFR - AA 162 Result Comment: GFR Calc LAB L501.1255 ml/min Normal Estimated CRCL 29.81 LAB L501.1300 10-20 RATIO High BUN/CRE 42.4 LAB L501.1500 6.4-8. g/dL Normal 2 T PROT 6.9 LAB L501.1800 3.2-5. g/dL Low 0 ALB 2.8 LAB L501.1950 2.2-4. g/dL Normal 2 GLOB 4.1 LAB L501.2000 0.9-2. RATIO Low 4 A/G 0.7 LAB L501.2200 8.5-10 mg/dL Normal .1 CA 8.5 LAB L501.4100 15-37 U/L High AST 55 LAB L501.4305 45-117 U/L Normal ALK P 108 LAB L501.4405 13-56 U/L High ALT 66 LAB L501.4600 0.20-1 mg/dL Normal .00 T BILI 0.70 LAB L501.5300 136-14 mmol/L Normal 5 NA 136 LAB L501.5600 3.5-5. mmol/L Normal 1 K 3.8 LAB L501.5900 98-107 mmol/L Normal CL 100 LAB L501.6100 21.0-3 mmol/L Normal 2.0 CO2 25.0 LAB L501.6200 5-15 Normal GAP 11 Performed By: #### L500.4050 #### [facility] [address] [place], [address] LACTIC ACID Collected: 04/09/2018 Status: F Source: HAIR 10:04 PM [facility] REPOSITORY Order Comment: Yes/No query for Sepsis Lactate Rule Y TYPE CODE TESTS RESULT OUT OF RANGE REFERENCE UNITS LAB L503.6005 0.4-2.0 mmol/L Normal LACTIC ACID 1.0 Performed By: #### L503.6005 #### [facility] [address] [place], [address] Observed: 04/09/2018 Status: F Source: [place] CULTURE, BLOOD (WB) 10:04 PM [facility] REPOSITORY BC No growth in 5 days. Performed By: #### M200.1000 #### [place] [facility] [address] [place], [address] ORTHOPEDIC VISIT Observed: 04/02/2018 Status: F Source: HAIR REPORT 1:47 PM [facility] REPOSITORY [facility] [facility] [address] [place] [address] OFFICE VISIT Date of Service: 04/02/18 MR#: [id number] Acct: [id number] Name: JESSICA HAYDEN Rep #: [id number] : 1935 Provider: Ivory Crowder DO Age/Sex: 82/F Location: [facility] Status: Signed Intake Intake Visit Reasons: RIGHT HIP Is patient in pain?: No Allergies No Known Allergies Allergy (Verified 10/11/16 07:40) Medications Atorvastatin Calcium [Lipitor] 20 mg PO QHS 05/15/13 [History Confirmed 02/18/18] Ranitidine [Zantac] 150 mg PO BID 05/15/13 [History Confirmed 02/18/18] Vit D3/Folic Acid/B2/B6/B12 [Folgard Tablet] 1 tab PO QWEEK 05/15/13 [History Confirmed 11/19/17] Acetaminophen [Tylenol Extra Strength] 500 mg PO Q6H PRN PRN 10/11/16 [History Confirmed 11/19/17] Aspirin [Aspirin, Baby] 81 mg PO DAILY@0800 10/11/16 [History Confirmed 02/18/18] Multivitamin [Daily Multiple Vitamin] 1 ea PO DAILY 10/11/16 [History Confirmed 02/18/18] Ondansetron [Zofran Odt] 4 mg PO Q8H PRN PRN #10 tab 11/19/17 [Rx] alendronate 70 mg tablet 70 mg PO QWEEK 02/18/18 [History Confirmed 02/18/18] calcium citrate 250 mg tablet 250 mg PO BID tab 02/18/18 [History Confirmed 02/18/18] ergocalciferol (vitamin D2) 50,000 unit tablet See Label Instructions PO .2xweek tab 02/18/18 [History Confirmed 02/18/18] Alendronate Sodium [Fosamax] 70 mg PO TU 02/19/18 [History Confirmed 02/19/18] Ergocalciferol [Vitamin D] 50,000 unit PO MOFR 02/19/18 [History Confirmed 02/19/18] Calcium Carbonate/Vitamin D3 [Calcium 250-Vit D3 125 Tablet] 1 ea PO 02/20/18 [History] Ascorbic Acid [Vitamin C] 500 mg PO DAILY@0800 tab 02/26/18 [Rx] Docusate Sodium [Colace] 200 mg PO BID PRN PRN cap 02/26/18 [Rx] Ensure Enlive 120 ml PO TIDCM liquid 02/26/18 [Rx] Iron Polysaccharide Complex [Ferrex 150] 150 mg PO DAILYCM cap 02/26/18 [Rx] Mag Hydrox/Al Hydrox/Simeth [Mylanta II] 30 ml PO Q6H PRN PRN udc 02/26/18 [Rx] Oxycodone [Oxyir] 5 mg PO Q4H PRN PRN 5 Days #30 tab 02/26/18 [Rx] Polyethylene Glycol 3350 [Miralax] 17 gm PO DAILY packet 02/26/18 [Rx] losartan 25 mg tablet 25 mg PO QDAY 03/27/18 [History Confirmed 03/27/18] PFSH Medical History Dizziness (Chronic) Closed right hip fracture (Acute) Osteoporosis (Chronic) Hypertension (Chronic) Dyslipidemia (Chronic) Near syncope (Acute) Malnutrition (Chronic) Anemia (Acute) Premature atrial contractions (Acute) Hyperlipidemia (Chronic) Paroxysmal atrial fibrillation (Chronic) Syncope and collapse (Acute) Near syncope (Acute) Dementia (Chronic) Aortic valve disorder (Chronic) HTN (hypertension) (Chronic) Premature ventricular contraction (Acute) TIA (transient ischemic attack) (Acute) BPPV (benign paroxysmal positional vertigo) (Chronic) History of cerebellar ataxia (Chronic) Surgical History h/o right hip surgery (Acute) History of cataract surgery (Resolved) Family History Sister Diabetes Daughter Atrial fibrillation Social History Smoking Status: Never smoker alcohol intake: never substance use type: does not use HPI RIGHT HIP: Details: JESSICA HADYEN is a 82 year old F here today for f/u 02/22 right imani. She is not complaining of any pain, she is ambulating with a walker in the longterm. She is in a wheelchair today with her daughter. Patient wants to leave her longterm and go home with her daughter but the daughter states that the home does not believe she can care for her mom. Denies numbness, tingling or other associated symptoms. ROS [place] Reports as per HPI, Denies joint pain Ortho Exam Right Hip Skin: Yes healed Contralateral Normal: Yes Hip: absent TTP Greater Troch Assessment AND Plan 1. Orthopedic aftercare Z47.89 Plan Instructed to keep ambulating as much as she can and be active, use the walker as long as PT states she should. Follow up in 2 months or sooner if pain, swelling, numbness or associated symptoms, or concerns develop. All questions answered. Patient in agreement of plan. Coding Level of Care Code Global Post Op Diagnoses Orthopedic aftercare Z47.89 04/02/18 1347 <Electronically signed by Ivory Crowder DO> Date Ivory Crowder DO Cosigner Signature: Date (if applicable) CC: CARDIOLOGY VISIT Observed: 03/28/2018 Status: F Source: HAIR REPORT 9:22 AM [facility] REPOSITORY [facility] [address] [place] [address] OFFICE VISIT Date of Service: 03/27/18 MR#: [id number] Acct: [id number] Name: Jessica Hayden Rep #: [id number] : 1935 Provider: MATTI Harp Age/Sex: 82/F Location: [facility] Status: Signed HPI HPI Details: Jessica Hayden is a 82 F who presents to the office today for a cardiovascular outpatient follow-up. She has a history of possible paroxysmal atrial fibrillation, aortic valve sclerosis, hypertension, hyperlipidemia, near-syncope, and dementia. Pt denies chest, arm, jaw, or neck discomfort. Her exercise tolerance is stable via PT. Pt denies symptoms of CHF, palpitations, lightheadedness, near syncopal or syncopal episodes. Pt denies edema or claudication issues. Pt. denies orthopnea, PND, fever, chills, blood in urine, blood in stool, myalgia, or unexplainable fatigue. She continues to get dizziness with position change and with activity. This occurs intermittently and randomly. She states having a chronic cough that comes and goes. Intake Vital Signs03/27/18 Height 5 ft 03/27/18 Weight: 98 lb 03/27/18 Body Mass Index (BMI) 19.1 03/27/18 Blood Pressure 122/58 03/27/18 Blood Pressure Location Lt brachial Intake Visit Reasons: Syncope Reliner Required: No Is patient in pain?: No Allergies No Known Allergies Allergy (Verified 10/11/16 07:40) Medications Atorvastatin Calcium [Lipitor] 20 mg PO QHS 05/15/13 [History Confirmed 02/18/18] Ranitidine [Zantac] 150 mg PO BID 05/15/13 [History Confirmed 02/18/18] Vit D3/Folic Acid/B2/B6/B12 [Folgard Tablet] 1 tab PO QWEEK 05/15/13 [History Confirmed 11/19/17] Acetaminophen [Tylenol Extra Strength] 500 mg PO Q6H PRN PRN 10/11/16 [History Confirmed 11/19/17] Aspirin [Aspirin, Baby] 81 mg PO DAILY@0800 10/11/16 [History Confirmed 02/18/18] Multivitamin [Daily Multiple Vitamin] 1 ea PO DAILY 10/11/16 [History Confirmed 02/18/18] Ondansetron [Zofran Odt] 4 mg PO Q8H PRN PRN #10 tab 11/19/17 [Rx] alendronate 70 mg tablet 70 mg PO QWEEK 02/18/18 [History Confirmed 02/18/18] calcium citrate 250 mg tablet 250 mg PO BID tab 02/18/18 [History Confirmed 02/18/18] ergocalciferol (vitamin D2) 50,000 unit tablet See Label Instructions PO .2xweek tab 02/18/18 [History Confirmed 02/18/18] Alendronate Sodium [Fosamax] 70 mg PO TU 02/19/18 [History Confirmed 02/19/18] Ergocalciferol [Vitamin D] 50,000 unit PO MOFR 02/19/18 [History Confirmed 02/19/18] Calcium Carbonate/Vitamin D3 [Calcium 250-Vit D3 125 Tablet] 1 ea PO 02/20/18 [History] Ascorbic Acid [Vitamin C] 500 mg PO DAILY@0800 tab 02/26/18 [Rx] Docusate Sodium [Colace] 200 mg PO BID PRN PRN cap 02/26/18 [Rx] Ensure Enlive 120 ml PO TIDCM liquid 02/26/18 [Rx] Iron Polysaccharide Complex [Ferrex 150] 150 mg PO DAILYCM cap 02/26/18 [Rx] Mag Hydrox/Al Hydrox/Simeth [Mylanta II] 30 ml PO Q6H PRN PRN udc 02/26/18 [Rx] Oxycodone [Oxyir] 5 mg PO Q4H PRN PRN 5 Days #30 tab 02/26/18 [Rx] Polyethylene Glycol 3350 [Miralax] 17 gm PO DAILY packet 02/26/18 [Rx] losartan 25 mg tablet 25 mg PO QDAY 03/27/18 [History Confirmed 03/27/18] PFSH Medical History Premature atrial contractions (Acute) Hyperlipidemia (Chronic) Paroxysmal atrial fibrillation (Chronic) Syncope and collapse (Acute) Near syncope (Acute) Dementia (Chronic) Aortic valve disorder (Chronic) HTN (hypertension) (Chronic) Premature ventricular contraction (Acute) TIA (transient ischemic attack) (Acute) BPPV (benign paroxysmal positional vertigo) (Chronic) History of cerebellar ataxia (Chronic) Surgical History h/o right hip surgery (Acute) History of cataract surgery (Resolved) Family History Sister Diabetes Daughter Atrial fibrillation Social History Smoking Status: Never smoker alcohol intake: never substance use type: does not use ROS Const Const: Negative for fatigue, weakness, body ache, fever(s) or chills ENT ENT: Positive for dizziness Cardio Chest Pain: No Palpitations: No Edema: None Muscle aches with walking: None Resp Respiratory: Positive for Cough; negative for SOB with activity, SOB at rest, SOB orthopnea\SOB lying down or paroxysmal nocturnal dyspnea GI GI: Negative nausea, black,tarry stools, bright, red blood in stools or vomiting blood/hematemesis : Negative for hematuria or frequent nighttime urination/ nocturia Musc Musc: Negative for muscle aches/ myalgia Skin Skin: Negative non-healing lesions or rash Neuro Neuro: Positive for dizziness; negative for weakness, lightheadedness, near syncope, syncope or orthostatic symptoms Endo Endo: Negative for fatigue Allergy Allergy/Immunology: Negative for rash Cardiology Exam Const Appearance: cooperative, healthy appearing, comfortable and no acute distress Nutritional Appearance: average body habitus and well nourished Orientation: alert, awake and oriented x3 Head Head: normal to inspection Ears: hearing grossly normal bilaterally Nose: external nose normal Face and Sinus: face symmetric Mouth: oral mucosae normal Eyes General: appearance normal, both eyes and all related structures Eyelids: eyelids normal EOM: EOM intact bilaterally Neck Neck: no JVD and normal visual inspection Carotids: normal carotid upstroke Chest Chest inspection: normal inspection of the chest and normal respiratory effort; negative cough Auscultation: Bilateral: Clear to Auscultation Cardio Rate: regular rate Rhythm: regular rhythm Heart sounds: S1 normal and S2 normal; negative rub, gallop or murmur GI GI: normal to inspection Neuro General: alert, awake, oriented x3 and CN's II-XI intact bilaterally Skin Skin: no rashes or lesions noted Extremities Pulses: Normal: Right Posterior Tibial Pulse, Left Posterior Tibial Pulse, Right Radial Pulse, Left Radial Pulse Lower Extremity Edema: None: Bilateral Psych Psychological: normal affect Supplemental Info Echocardiogram in February 2018 showed a preserved ejection fraction of 60% with stage I diastolic dysfunction Echocardiogram from October 2016 showed an ejection fraction of 65%, moderately enlarged left atrium, mild mitral annular calcification, mild diffuse mitral valve thickening, trivial mitral valve insufficiency, trivial tricuspid valve insufficiency, and aortic sclerosis but no stenosis. Holter monitor from November 2014 showed an average heart rate of 68 bpm, minimum heart rate of 54 bpm of sinus bradycardia, maximum heart rate of 101 bpm of normal sinus rhythm, longest R to R interval was 1.2 seconds, rare premature atrial complexes, 2 atrial runs noted, longest and fastest run of ectopic atrial tachycardia was 4 beats with a maximum heart rate 169 bpm, no atrial fibrillation noted, and patient did not report any symptoms in diary. Assessment AND Plan 1. Dizziness R42 Plan The exact etiology of her dizziness remains unclear. She is undergone extensive study in the past which included brain CT scan carotid duplex ultrasound, Holter monitor, and echocardiogram. Her brain CT scan from February 2018 showed chronic involutional changes of the brain. Her carotid duplex ultrasound from October 2016 showed less than 50% stenosis bilaterally. Her Holter monitor from November 2014 showed average heart rate of 68 bpm, minimum heart of 54 bpm of sinus bradycardia, maximum heart rate of 101 bpm, longest R to R interval 1.2 seconds, rare PACs, and no runs noted, no atrial fibrillation noted. Her echocardiogram in February 2018 showed a preserved ejection fraction of 60% with stage I diastolic dysfunction. Rate is well-controlled today in office. It will be discussed further with Dr. Canseco to see if neurological referral is recommended. 2. Syncope and collapse R55 Plan She denies any syncopal episodes. Her heart rate and blood pressure remained well controlled. She will continue current medications and we will continue to monitor. 3. Paroxysmal atrial fibrillation I48.0 Plan She appears to be maintaining regular rhythm. She is not on any rate limiting medications. She is not on any oral anti-coagulation. At this time we will continue to monitor. 4. Essential hypertension I10 Plan Patient is currently taking low-dose losartan. Her pressure remains well controlled. We will continue to monitor. 5. Dyslipidemia E78.5 Plan Lipid panel from February 2018 showed cholesterol: 95, HDL: 44, LDL: 42, and triglycerides: 45. She will continue with low-dose statin medication. We will continue to monitor. Plan Detail Other Medications Discontinued: Additional Comments Thank you for allowing us to participate in the patient's plan of care, if you have any questions please do not hesitate to call. This note was generated using a voice recognition system and there may be incorrect words, spelling, or punctuation that were not noted upon reviewing the office note prior to saving. Follow Up 6 Months (DAYCARE DIRECTOR/PA) 14 Months (PFM) Coding Level of Care Code Off vis,est,level 3 Diagnoses Dizziness R42 Syncope and collapse R55 Paroxysmal atrial fibrillation I48.0 Essential hypertension I10 Hypertension type: essential hypertension Dyslipidemia E78.5 Coding Level of Care Code Off vis,est,level 3 Diagnoses Dizziness R42 Syncope and collapse R55 Paroxysmal atrial fibrillation I48.0 Essential hypertension I10 Hypertension type: essential hypertension Dyslipidemia E78.5 03/28/18 0922 <Electronically signed by Yoav BUSTILLOS> Date Yoav FOURNIERC Cosigner Signature: Date (if applicable) CC: Carole Velasquez MD CBC W/DIFF, AUTOMATED Collected: 03/26/2018 Status: F Source: [place] 10:50 AM [facility] REPOSITORY TYPE CODE TESTS RESULT OUT OF RANGE REFERENCE UNITS LAB L100.1000 4.4-11.0 K/mm3 Normal WBC 5.6 LAB L100.1200 4.2-5.4 M/mm3 Low RBC 3.30 LAB L100.1300 12.0-15.0 g/dl Low HGB 9.8 LAB L100.1400 37-47 % Low HCT 31.6 LAB L100.1500 81-99 fL Normal MCV 95.8 LAB L100.1600 27.0-32.0 pg Normal MCH 29.7 LAB L100.1700 32-36 g/gl Low MCHC 31.0 LAB L100.1810 11.6-14.6 % High RDW CV 14.8 LAB L100.1820 35.1-43.9 fl High RDW SD 51.4 LAB L100.1900 150-450 K/mm3 Normal PLT 285 LAB L100.2000 6.2-12.0 fl Normal MPV 10.0 LAB L100.2100 47-70 % Normal NEUT% 67.2 LAB L100.2200 19-41 % Normal LY% 20.2 LAB L100.2300 0-10 % High MONO% 10.6 LAB L100.2400 0-5 % Normal EO% 1.6 LAB L100.2500 0-1 % Normal BASO% 0.4 LAB L100.2550 0.0-0.9 % Normal IM GRAN % 0.000 Result Comment: IG% - Immature Granulocytes (promyelocytes, myelocytes and metamyelocytes) > 1% indicates that a LEFT SHIFT is Present. LAB L100.2620 2.0-7.7 X10 3/uL Normal Absolute Neut 3.8 LAB L100.2720 0.83-4.51 X10 3/ul Normal Absolute Lymph 1.14 Performed By: #### L100.0100 #### [facility] [address] [place], [address] BASIC METABOLIC Collected: 03/26/2018 Status: F Source: [place] PROFILE (BMP) 10:50 AM [facility] REPOSITORY TYPE CODE TESTS RESULT OUT OF RANGE REFERENCE UNITS LAB L501.0100 74-106 mg/dL Normal GLU 100 Result Comment: Fasting Glucose result from 100 to 125 mg/dL suggests IMPAIRED HOMEOSTASIS per A.D.A. criteria. Please note revised GLUCOSE reference range effective 2017. LAB L501.1000 7-18 mg/dL Normal BUN 13 LAB L501.1100 0.55-1.02 mg/dL Low CREAT,SERUM 0.54 Result Comment: The validity of the calculated GFR AND GFRAA in patients over 70 years has not been determined. Clinical correlation is essential. LAB L501.1110 >60 mL/min Normal EST GFR 114 Result Comment: Non- GFR Calc LAB L501.1115 >60 mL/min Normal EST GFR - AA 138 Result Comment: GFR Calc LAB L501.1300 10-20 RATIO High BUN/CRE 24.0 LAB L501.2200 8.5-10.1 mg/dL CA Normal 8.7 LAB L501.5300 136-145 mmol/L NA Normal 138 LAB L501.5600 3.5-5.1 mmol/L K Normal 3.8 LAB L501.5900 98-107 mmol/L CL Normal 103 LAB L501.6100 21.0-32.0 mmol/L Normal CO2 30.0 LAB L501.6200 5-15 Normal GAP 5 Performed By: #### L500.2500 #### [facility] [address] [place], [place], [address] CBC W/DIFF, AUTOMATED Collected: 03/25/2018 Status: F Source: [place] 5:35 AM [facility] REPOSITORY Order Comment: ROOM 127 TYPE CODE TESTS RESULT OUT OF RANGE REFERENCE UNITS LAB L100.1000 4.4-11.0 K/mm3 Normal WBC 5.5 LAB L100.1200 4.2-5.4 M/mm3 Low RBC 3.34 LAB L100.1300 12.0-15.0 g/dl Low HGB 10.0 LAB L100.1400 37-47 % Low HCT 32.6 LAB L100.1500 81-99 fL Normal MCV 97.6 LAB L100.1600 27.0-32.0 pg Normal MCH 29.9 LAB L100.1700 32-36 g/gl Low MCHC 30.7 LAB L100.1810 11.6-14.6 % High RDW CV 14.9 LAB L100.1820 35.1-43.9 fl High RDW SD 50.7 LAB L100.1900 150-450 K/mm3 Normal PLT 297 LAB L100.2000 6.2-12.0 fl Normal MPV 10.5 LAB L100.2100 47-70 % Normal NEUT% 67.4 LAB L100.2200 19-41 % Normal LY% 21.3 LAB L100.2300 0-10 % Normal MONO% 8.7 LAB L100.2400 0-5 % Normal EO% 2.2 LAB L100.2500 0-1 % Normal BASO% 0.2 LAB L100.2550 0.0-0.9 % Normal IM GRAN % 0.200 Result Comment: IG% - Immature Granulocytes (promyelocytes, myelocytes and metamyelocytes) > 1% indicates that a LEFT SHIFT is Present. LAB L100.2620 2.0-7.7 X10 3/uL Normal Absolute Neut 3.7 LAB L100.2720 0.83-4.51 X10 3/ul Normal Absolute Lymph 1.18 Performed By: #### L100.0100 #### [facility] [address] [place], [place], [address] BASIC METABOLIC Collected: 03/25/2018 Status: F Source: [place] PROFILE (BMP) 5:35 AM [facility] REPOSITORY Order Comment: ROOM 127 TYPE CODE TESTS RESULT OUT OF RANGE REFERENCE UNITS LAB L501.0100 74-106 mg/dL Normal GLU 90 Result Comment: Please note revised GLUCOSE reference range effective 2017. LAB L501.1000 7-18 mg/dL High BUN 19 LAB L501.1100 0.55-1.02 mg/dL Low CREAT,SERUM 0.44 Result Comment: The validity of the calculated GFR AND GFRAA in patients over 70 years has not been determined. Clinical correlation is essential. LAB L501.1110 >60 mL/min Normal EST GFR 146 Result Comment: Non- GFR Calc LAB L501.1115 >60 mL/min Normal EST GFR - AA 177 Result Comment: GFR Calc LAB L501.1300 10-20 RATIO High BUN/CRE 43.5 LAB L501.2200 8.5-10.1 mg/dL CA Normal 8.7 LAB L501.5300 136-145 mmol/L NA Normal 142 LAB L501.5600 3.5-5.1 mmol/L K Normal 4.0 LAB L501.5900 98-107 mmol/L CL Normal 103 LAB L501.6100 21.0-32.0 mmol/L Normal CO2 26.0 LAB L501.6200 5-15 Normal GAP 13 Performed By: #### L500.2500 #### [facility] [address] [place], [address] CBC W/DIFF, AUTOMATED Collected: 03/10/2018 Status: F Source: [place] 5:55 AM [facility] REPOSITORY TYPE CODE TESTS RESULT OUT OF RANGE REFERENCE UNITS LAB L100.1000 4.4-11.0 K/mm3 Normal WBC 6.0 LAB L100.1200 4.2-5.4 M/mm3 Low RBC 2.88 LAB L100.1300 12.0-15.0 g/dl Low HGB 8.8 LAB L100.1400 37-47 % Low HCT 28.1 LAB L100.1500 81-99 fL Normal MCV 97.6 LAB L100.1600 27.0-32.0 pg Normal MCH 30.6 LAB L100.1700 32-36 g/gl Low MCHC 31.3 LAB L100.1810 11.6-14.6 % Normal RDW CV 13.4 LAB L100.1820 35.1-43.9 fl High RDW SD 45.7 LAB L100.1900 150-450 K/mm3 High PLT 562 LAB L100.2000 6.2-12.0 fl Normal MPV 10.3 LAB L100.2100 47-70 % High NEUT% 70.4 LAB L100.2200 19-41 % Low LY% 14.3 LAB L100.2300 0-10 % High MONO% 11.8 LAB L100.2400 0-5 % Normal EO% 3.0 LAB L100.2500 0-1 % Normal BASO% 0.3 LAB L100.2550 0.0-0.9 % Normal IM GRAN % 0.200 Result Comment: IG% - Immature Granulocytes (promyelocytes, myelocytes and metamyelocytes) > 1% indicates that a LEFT SHIFT is Present. LAB L100.2620 2.0-7.7 X10 3/uL Normal Absolute Neut 4.2 LAB L100.2720 0.83-4.51 X10 3/ul Normal Absolute Lymph 0.86 Performed By: #### L100.0100 #### [facility] [address] [place], [address] PROTEIN, TOTAL Collected: 03/10/2018 Status: F Source: [place] 5:40 AM [facility] REPOSITORY Order Comment: ROOM 127 TYPE CODE TESTS RESULT OUT OF RANGE REFERENCE UNITS LAB L501.1500 6.4-8.2 g/dL Low T PROT 6.3 LAB L501.1950 2.2-4.2 g/dL Normal GLOB 3.8 LAB L501.2000 0.9-2.4 RATIO Low A/G 0.7 Performed By: #### L001.0705, L500.4100, L501.1800, L501.4100, L501.4405 #### [facility] [address] [place], [place], [id number] LIPID PROFILE Collected: 03/10/2018 Status: F Source: [place] 5:40 AM [facility] REPOSITORY Order Comment: ROOM 127 TYPE CODE TESTS RESULT OUT OF RANGE REFERENCE UNITS LAB L501.4900 200 mg/dL Normal CHOL 95 Result Comment: <200 mg/dL Desirable 200-240 mg/dL Borderline >240 mg/dL High Risk LAB L501.5000 mg/dL Normal TRIG 45 Result Comment: The drugs N-Acetylcysteine and Metamizole may falsely depress this assay. Serum Triglycerides Reference Interval Normal <150 mg/dL Borderline high 150 - 199 mg/dL High 200 - 499 mg/dL Very High > or = 500 mg/dL LAB L501.6400 mg/dL Normal HDL 44 Result Comment: The drugs N-Acetylcysteine and Metamizole may falsely depress this assay. Reference Range HDL <40 mg/dL Low HDL Cholesterol HDL >or= 60 mg/dL High HDL Cholesterol LAB L501.6500 0-130 mg/dL Normal LDL 42 LAB L501.6600 5-40 mg/dL Normal VLDL 9 Performed By: #### L001.0705, L500.4100, L501.1800, L501.4100, L501.4405 #### [facility] [address] [place], [place], [address] ALBUMIN, SERUM Collected: 03/10/2018 Status: F Source: [place] 5:40 AM [facility] REPOSITORY Order Comment: ROOM 127 TYPE CODE TESTS RESULT OUT OF RANGE REFERENCE UNITS LAB L501.1800 3.2-5.0 g/dL Low ALB 2.5 Performed By: #### L001.0705, L500.4100, L501.1800, L501.4100, L501.4405 #### [facility] [address] [place], [place], [address] AST(SGOT) Collected: 03/10/2018 Status: F Source: [place] 5:40 AM [facility] REPOSITORY Order Comment: ROOM 127 TYPE CODE TESTS RESULT OUT OF RANGE REFERENCE UNITS LAB L501.4100 15-37 U/L Normal AST 31 Performed By: #### L001.0705, L500.4100, L501.1800, L501.4100, L501.4405 #### [facility] [address] [place], [place], [address] ALANINE AMINOTRANSFERAS Collected: 03/10/2018 Status: F Source: [place] (SGPT) 5:40 AM [facility] REPOSITORY Order Comment: ROOM 127 TYPE CODE TESTS RESULT OUT OF RANGE REFERENCE UNITS LAB L501.4405 13-56 U/L Normal ALT 54 Performed By: #### L001.0705, L500.4100, L501.1800, L501.4100, L501.4405 #### [facility] [address] [place], [address] ORTHOPEDIC VISIT Observed: 03/07/2018 Status: F Source: [place] REPORT 4:02 PM [facility] REPOSITORY [facility] [facility] [address] [place] [address] OFFICE VISIT Date of Service: 03/07/18 MR#: [id number] Acct: [id number] Name: JESSICA HAYDEN Rep #: [id number] : 1935 Provider: JEAN Mohamud Age/Sex: 82/F Location: [facility] [place] Status: Signed Intake Intake Visit Reasons: RIGHT HIP Is patient in pain?: No Allergies No Known Allergies Allergy (Verified 03/07/18 14:45) Medications Alendronate Sodium [Fosamax] 70 mg PO TU 02/19/18 [History Confirmed 02/19/18] Atorvastatin Calcium [Lipitor] 20 mg PO QHS 02/19/18 [History Confirmed 02/19/18] Ergocalciferol [Vitamin D] 50,000 unit PO MOFR 02/19/18 [History Confirmed 02/19/18] Ranitidine [Zantac] 150 mg PO BID 02/19/18 [History Confirmed 02/19/18] Valsartan [Diovan] 40 mg PO DAILY 02/19/18 [History Confirmed 02/19/18] Calcium Carbonate/Vitamin D3 [Calcium 250-Vit D3 125 Tablet] 1 ea PO 02/20/18 [History] Multivitamin [Multiple Vitamins] 1 ea PO DAILY 02/20/18 [History Confirmed 02/20/18] Ondansetron [Zofran Odt] 4 mg PO Q8H PRN PRN 02/20/18 [History Confirmed 02/20/18] Ascorbic Acid [Vitamin C] 500 mg PO DAILY@0800 tab 02/26/18 [Rx] Aspirin [Aspirin, Baby] 81 mg PO DAILY@0800 #0 02/26/18 [Rx Confirmed 02/19/18] Docusate Sodium [Colace] 200 mg PO BID PRN PRN cap 02/26/18 [Rx] Enoxaparin [Lovenox] 30 mg SC DAILY@0600 syringe 02/26/18 [Rx] Ensure Enlive 120 ml PO TIDCM liquid 02/26/18 [Rx] Iron Polysaccharide Complex [Ferrex 150] 150 mg PO DAILYCM cap 02/26/18 [Rx] Mag Hydrox/Al Hydrox/Simeth [Mylanta II] 30 ml PO Q6H PRN PRN udc 02/26/18 [Rx] Oxycodone [Oxyir] 5 mg PO Q4H PRN PRN 5 Days #30 tab 02/26/18 [Rx] Polyethylene Glycol 3350 [Miralax] 17 gm PO DAILY packet 02/26/18 [Rx] PFSH Surgical History h/o right hip surgery (Acute) Social History Smoking Status: Never smoker HPI RIGHT HIP: Details: JESSICA HAYDEN is a 82 year old F here today for s/p right hip hemiarthroplasty dos 02/22/[address] Cabezas. She is doing well and not having any hip pain. She notes that she has bilateral leg pain but she has had that since prior to her surgery. Patient feels like her legs are heavy. She has had that heaviness for awhile. Patient is currently in PT at [facility] and she is ambulating with a walker. Patient is brought to her appointment today in a wheelchair. Denies numbness, tingling or other associated symptoms. She is able to move her ankle with no weakness. Ortho Exam Right Hip Skin: Yes healing, No suture/zaki removed (only internal / sub-q sutures used) Hip: absent eccymosis, absent soft tissue swelling, absent erythema, absent TTP Greater Troch Homans Sign: No HIP: Patients incision site looks great without any signs of infection / inflammation. She transferred from sit to stand (with assistance) without any pains or problems (for incision check). Assessment AND Plan Problems 1. Closed fracture of right hip with routine healing, subsequent encounter S72.001D 2. Orthopedic aftercare for healing pathologic hip fracture M84.476D Plan Obtained Xrays of patient's right hip. Personally reviewed Xrays along with Dr. Crowder. There is no evidence of loosening of the replacement parts. No evidence of fracture through the femoral shaft (at stem base). Patient states that she is not having any pains in the hip at this time. She is currently doing therapy and is walking with a walker. Her incision looks great at this time and skin sensation is actually good around the site. She has good sensation to light touch down the leg. She is to continue with PT as indicated, progressing per protocol. Continue to watch for changes at the incision site and notify of an pains, or other changes. Orders Orders: Plan Detail Follow Up 4 Weeks Coding Level of Care Code Global Post Op Diagnoses Closed fracture of right hip with routine healing, subsequent encounter S72.001D Encounter type: subsequent encounter Fracture healing: with routine healing Orthopedic aftercare for healing pathologic hip fracture M84.459D 03/07/18 1602 <Electronically signed by Dejan PENA> Date Dejan PENA Cosigner Signature: Date (if applicable) CC: HIP 2-3 VIEWS WITH Observed: 03/07/2018 Status: F Source: [place] PELVIS 2:19 PM [facility] REPOSITORY [facility] Imaging Services [address] [place] [address] Hip 2-3 Views with Pelvis MR#: [id number] Acct: [id number] Name: JESSICA HAYDEN Rep #: [id number] : 1935 F 82 From: Riaz Jimenez MD PCP: Care Physician, No Primary Status: REG CLI Study: Hip 2-3 Views with Pelvis Date of Exam: 03/07/18 Exam# [id number] Ordering Dr: Dejan Mohamud STUDY: X-RAY - PELVIS AND RIGHT HIP REASON FOR EXAM: Female, 82 years old. Postop from hip replacement surgery TECHNIQUE: Radiological exam, hip, unilateral, with pelvis when performed; 2 or 3 views. 3 views. COMPARISON: 02/21/2018 FINDINGS: The right hip has been recently replaced. Components again demonstrate anatomic alignment. No plain film evidence of hardware complication or failure. Stable degenerative changes in the SI joints and left hip. No acute fracture or suspicious osseous lesion. RAD/Hip 2-3 Views with Pelvis IMPRESSION: Replaced right hip joint demonstrates anatomic alignment. No plain film evidence of postoperative complication Electronically Signed: Oliver Jimenez MD at 15:24 EDT , Service support , CC: No Primary Care Physician; JEAN Mohamud Tennis Ball Cover Cementer: Signed 12 LEAD ELECTROCARDIOGRAM Observed: 03/05/2018 Status: F Source: [place] 2:11 PM [facility] REPOSITORY [facility] Cardiovascular Services [address] [place] [id number] 12 Lead EKG 02/21/18 1630 MR#: [id number] Acct: [id number] Name: JESSICA HAYDEN Rep #: [id number] : 1935 82 From: John Andrade MD Attending Dr: Coni Moreno Status: DIS IN Ordering Dr: Nadege Miller MD Date: 02/21/18 Location: PA3 Sex: F C Admitted: 02/19/18 Test Reason : SYNCOPE Blood Pressure : / mmHG Vent. Rate : 074 BPM Atrial Rate : 074 BPM P-R Int : 128 ms QRS Dur : 072 ms QT Int : 406 ms P-R-T Axes : 071 040 062 degrees QTc Int : 450 ms Normal sinus rhythm Nonspecific ST abnormality Abnormal ECG When compared with ECG of 19-FEB-2018 16:32, No significant change was found Confirmed by JOHN ANDRADE ([id number]), assistant editor SANTIAGO CUTLER ([id number]) on 03/05/2018 2:10:51 PM Referred By: SUNIL Confirmed By:JOHN ANDRADE 03/05/18 1410 Date John Andrade MD CC: No Primary Care Physician; Coni Moreno; Nadege Miller MD Signed DISCHARGE SUMMARY Observed: 02/27/2018 Status: F Source: [place] 2:11 PM [facility] REPOSITORY [facility] Medical Records Department [address] [place] [address] Discharge Summary 02/26/18 0900 MR#: [id number] Acct: [id number] Name: JESSICA HAYDEN Rep #: [id number] : 1935 82 From: Coni Moreno PCP: Care Physician, No Primary Status: ADM IN Location: [place] [address] ADDENDUM by Coni Moreno on 02/27/18 at 1411 Code Visit CORRECTION: ADMISSION DATE: 02/19/18 DISCHARGE DATE: 02/27/18 DISCHARGE SUMMARY UPDATE: Patient discharge arranged for 02/26/18; however, the [facility] facility did not obtain authorization until 02/27/18 AM. Patient remained stable and there were no overnight events as noted. Progress note separate on day of discharge, see note. Inpatient E AND M: [id number] Disch Hosp 02/27/18 1411 <Electronically signed by Coni Moreno > Date Coni Moreno cc: No Primary Care Physician; Coni Moreno * Signed Discharge Date and Diagnosis - Problem List Patient Problems: Active and Suspected Problems Closed right hip fracture (Acute) Near syncope (Acute) Anemia (Acute) Date of Admission: 02/19/18 Date of Discharge: 02/26/18 - Primary Discharge Diagnosis Active and Suspected Problems (1) General debility, R hip pain s/p mechanical fall w/ R Femoral neck fracture (2) Acute Normocytic Anemia secondary to Operative Blood Loss (3) Near Syncopal Event, Unclear etiololgy (4) Electrolyte Disturbances, Hypokalemia (3.4), Hypomagnesium (1.5) (5) Hypertension (6) Hyperlipidemia (7) Moderate Calorie-Protein Malnutrition - Secondary Discharge Diagnosis Chronic Problems Osteoporosis (Chronic) Hypertension (Chronic) Dyslipidemia (Chronic) Malnutrition (Chronic) Hospital Course and Treatment Orthopedic surgery Dr. Cabezas Operations: - - 02/21/18 OR w/ R hip hemiarthroplasty per Dr. Cabezas Procedures: 2-D Echocardiogram, Blood transfusion, EKG Summary of Care Provided: The patient is an 82 y/o F w/ PMHx: HTN, HLD, Osteoporosis who presented to the [facility] ED on 02/19/18 with history of fall w/ onset dizziness, lightheadedness prior from standing position while pushing neighbor in wheelchair. Plain film noting R femoral neck fracture. Orthopedic surgery consulted from ED. Admitted to PA, evaluation per Orthopedic surgery w/ 02/21/18 OR w/ R hip hemiarthroplasty per Dr. Cabezas, 2 u PRBC administered, post-operative constipation w/ bowel regimen ongoing, post-op transient urinary retention with improvement following straight catheterization. Pain, anti-emetic regimen. PT/OT following operative intervention. CM consulted for discharge planning w/ initial attempts for Acute rehabilitation; however, patient denied for acute rehab with then SNF discharge. During admission, Hgb 10.6-->post-operative Hgb 6.6, 2 u PRBC administered, 02/24/18 Hgb 10.2-->02/25/ Hgb 10.3, stable. ECHO w/ normal LV size, LV systolic function normal, EF 60%, transmitral diastolic flow velocities suggestive of mild stage I diastolic dysfunction. No further lightheaded or dizziness. Mag supplemented. Maintained on Fe supplementation. As noted upon admission history of near syncopal event w/ unclear etiology w/ EKG without evidence of acute ischemia, CXR w/ no acute cardiopulmonary findings, cardiac enzyme unremarkable with follow-up with Cardiology upon discharge per initial Hospitalist plan. During admission noted electrolyte disturbances w/Hypokalemia (3.4), Hypomagnesium (1.5), supplementation given during admission, corrected. Given presentation w/ noted Moderate Calorie-Protein Malnutrition as evidenced per habitus, continued on ensure, MVI. Patient discharged to SNF in stable condition with as noted requested Cardiology, PCP and Orthopedic surgery follow-up. Home Medications: Medications to take at Discharge Alendronate Sodium [Fosamax] 70 mg PO TU 02/19/18 Atorvastatin Calcium [Lipitor] 20 mg PO QHS 02/19/18 Ergocalciferol [Vitamin D] 50,000 unit PO MOFR 02/19/18 Ranitidine [Zantac] 150 mg PO BID 02/19/18 Valsartan [Diovan] 40 mg PO DAILY 02/19/18 Calcium Carbonate/Vitamin D3 [Calcium 250-Vit D3 125 Tablet] 1 each PO 02/20/18 Multivitamin [Multiple Vitamins] 1 each PO DAILY 02/20/18 Ondansetron [Zofran Odt] 4 mg PO Q8H PRN PRN 02/20/18 Ascorbic Acid [Vitamin C] 500 mg PO DAILY@0800 tablet 02/26/18 Aspirin [Aspirin, Baby] 81 mg PO DAILY@0800 #0 02/26/18 Docusate Sodium [Colace] 200 mg PO BID PRN PRN capsule 02/26/18 Enoxaparin [Lovenox] 30 mg SC DAILY@0600 syringe 02/26/18 Ensure Enlive 120 ml PO TIDCM liquid 02/26/18 Iron Polysaccharide Complex [Ferrex 150] 150 mg PO DAILYCM capsule 02/26/18 Mag Hydrox/Al Hydrox/Simeth [Mylanta II] 30 ml PO Q6H PRN PRN udc 02/26/18 Oxycodone [Oxyir] 5 mg PO Q4H PRN PRN 5 Days #30 tab 02/26/18 Polyethylene Glycol 3350 [Miralax] 17 gm PO DAILY packet 02/26/18 Following Prescrptions Were Given to Patient: Oxycodone [Oxyir] 5 mg PO Q4H PRN PRN 5 Days #30 tab PRN Reason: Moderate Pain (pain scale 4-5) Primary Care Physician: Care Physician,No Primary [Primary Care Provider] - Please follow up with your Primary Care Physician in: Follow- up within PCP within 1-2 days prior to SNF discharge planned. Please Follow Up With: Drake Cabezas DO When: Follow-up within 1-2 weeks following discharge Disposition: Custodial facility Minutes spent on discharge:: 35 Patient Condition:: Fair Medical Necessity - Tobacco Use Smoking Status: Never smoker Tobacco Use: Non-smoker Meaningful Use Info Meaningful Use Diagnoses (Choose all that apply): None applicable Code Visit Inpatient E WILLIAM M: [id number] Disch Hosp 02/26/18 1237 <Electronically signed by Coni Moreno > Date Coni Moreno Cosigner Signature (if applicable): Date CC: No Primary Care Physician; Coni Moreno Signed DISCHARGE INSTRUCTION Observed: 02/27/2018 Status: F Source: [place] 9:15 AM [facility] REPOSITORY [facility] Medical Records Department [address] [place] [address] [place] [address] Instructions for Home/Discharge Instructions 02/27/18912 MR#: [id number] Acct: [id number] Name: JESSICA HAYDEN Rep #: [id number] : 1935 82 From: Drake Cabezas DO PCP: Care Physician, No Primary Status: ADM IN Discharge Activity: Return to Normal Activity, May not drive while taking narcotic pain medications., May Shower, Use Walker May shower in (days): 1 Ice area for (Minutes): 20 Weight Bearing Status: Weight bearing as tolerated Call your doctor if your incision/area has: Continuous Slow Oozing, Sudden Increased Bleeding, Increased Pain/ Swelling, Increased Redness, Foul Smelling Discharge Call your doctor if you observe: Fever of 101 or Higher, Coldness, Increased Pain, Numbness or Tingling, Change in Color, Calf discomfort Suture Line Care: Avoid Pulling/Pushing, Avoid Pinching/Bending Change Dressing in (Days):: 2 Remove Dressing in (days):: 2 Cleanse incision/area with: Soap AND Water Additional Dressing/Incision Instructions:: Silverlon dressing stays in place for a total of 7 days from date of operation. Patient may shower over top of wound but do not submerge. Allergies/Adverse Reactions: Allergies No Known Allergies Allergy (Verified 02/19/18 16:10) Medications to take at Discharge Alendronate Sodium [Fosamax] 70 mg PO TU 02/19/18 Atorvastatin Calcium [Lipitor] 20 mg PO QHS 02/19/18 Ergocalciferol [Vitamin D] 50,000 unit PO MOFR 02/19/18 Ranitidine [Zantac] 150 mg PO BID 02/19/18 Valsartan [Diovan] 40 mg PO DAILY 02/19/18 Calcium Carbonate/Vitamin D3 [Calcium 250-Vit D3 125 Tablet] 1 each PO 02/20/18 Multivitamin [Multiple Vitamins] 1 each PO DAILY 02/20/18 Ondansetron [Zofran Odt] 4 mg PO Q8H PRN PRN 02/20/18 Ascorbic Acid [Vitamin C] 500 mg PO DAILY@0800 tablet 02/26/18 Aspirin [Aspirin, Baby] 81 mg PO DAILY@0800 #0 02/26/18 Docusate Sodium [Colace] 200 mg PO BID PRN PRN capsule 02/26/18 Enoxaparin [Lovenox] 30 mg SC DAILY@0600 syringe 02/26/18 Ensure Enlive 120 ml PO TIDCM liquid 02/26/18 Iron Polysaccharide Complex [Ferrex 150] 150 mg PO DAILYCM capsule 02/26/18 Mag Hydrox/Al Hydrox/Simeth [Mylanta II] 30 ml PO Q6H PRN PRN udc 02/26/18 Oxycodone [Oxyir] 5 mg PO Q4H PRN PRN 5 Days #30 tab 02/26/18 Polyethylene Glycol 3350 [Miralax] 17 gm PO DAILY packet 02/26/18 The following prescriptions were given: Oxycodone [Oxyir] 5 mg PO Q4H PRN PRN 5 Days #30 tab PRN Reason: Moderate Pain (pain scale 4-5) Primary Care Physician: Care Physician,No Primary [Primary Care Provider] - Please follow up with your Primary Care Physician in: Follow- up within PCP within 1-2 days prior to SNF discharge planned. Test Results: Test results from this visit will be discussed in further detail at your follow-up appointment, if applicable. Please Follow Up With: Drake Cabezas DO When: 1 WEEKS FOR XRAYS AND WOUND CHECK Proposed Discharge Date: 02/27/18 02/27/18914 <Electronically signed by Drake Cabezas DO> Date Drake Cabezas DO CC: No Primary Care Physician; Ivory Crowder DO CBC W/DIFF, AUTOMATED Collected: 02/27/2018 Status: F Source: [place] 5:34 AM [facility] REPOSITORY TYPE CODE TESTS RESULT OUT OF RANGE REFERENCE UNITS LAB L100.1000 4.4-11.0 K/mm3 Normal WBC 5.5 LAB L100.1200 4.2-5.4 M/mm3 Low RBC 3.17 LAB L100.1300 12.0-15.0 g/dl Low HGB 9.6 LAB L100.1400 37-47 % Low HCT 29.3 LAB L100.1500 81-99 fL Normal MCV 92.4 LAB L100.1600 27.0-32.0 pg Normal MCH 30.3 LAB L100.1700 32-36 g/gl Normal MCHC 32.8 LAB L100.1810 11.6-14.6 % Normal RDW CV 14.5 LAB L100.1820 35.1-43.9 fl High RDW SD 49.1 LAB L100.1900 150-450 K/mm3 Normal PLT 229 LAB L100.2000 6.2-12.0 fl Normal MPV 9.6 LAB L100.2100 47-70 % Normal NEUT% 59.1 LAB L100.2200 19-41 % Normal LY% 22.9 LAB L100.2300 0-10 % High MONO% 13.1 LAB L100.2400 0-5 % Normal EO% 4.2 LAB L100.2500 0-1 % Normal BASO% 0.5 LAB L100.2550 0.0-0.9 % Normal IM GRAN % 0.200 Result Comment: IG% - Immature Granulocytes (promyelocytes, myelocytes and metamyelocytes) > 1% indicates that a LEFT SHIFT is Present. LAB L100.2620 2.0-7.7 X10 3/uL Normal Absolute Neut 3.3 LAB L100.2720 0.83-4.51 X10 3/ul Normal Absolute Lymph 1.26 Performed By: #### L100.0100 #### [facility] [address] [place], [address] BASIC METABOLIC Collected: 02/27/2018 Status: F Source: [place] PROFILE (BMP) 5:34 AM [facility] REPOSITORY TYPE CODE TESTS RESULT OUT OF RANGE REFERENCE UNITS LAB L501.0100 74-106 mg/dL Normal GLU 85 Result Comment: Please note revised GLUCOSE reference range effective 2017. LAB L501.1000 7-18 mg/dL Normal BUN 12 LAB L501.1100 0.55-1.02 mg/dL Low CREAT,SERUM 0.37 Result Comment: The validity of the calculated GFR AND GFRAA in patients over 70 years has not been determined. Clinical correlation is essential. LAB L501.1110 >60 mL/min Normal EST GFR 175 Result Comment: Non- GFR Calc LAB L501.1115 >60 mL/min Normal EST GFR - AA 212 Result Comment: GFR Calc LAB L501.1255 ml/min Normal Estimated CRCL 30.62 LAB L501.1300 10-20 RATIO High BUN/CRE 32.2 LAB L501.2200 8.5-10 mg/dL Low .1 CA 8.0 LAB L501.5300 136-14 mmol/L Normal 5 NA 139 LAB L501.5600 3.5-5. mmol/L Normal 1 K 3.8 LAB L501.5900 98-107 mmol/L Normal CL 103 LAB L501.6100 21.0-3 mmol/L Normal 2.0 CO2 30.0 LAB L501.6200 5-15 Normal GAP 6 Performed By: #### L500.2500 #### [facility] [address] [place], [address] TRANSFER TO [facility] Observed: 02/26/2018 Status: F Source: [facility] 9:02 AM [facility] REPOSITORY [facility] Medical Records Department [address] [place] [address] Transfer to [facility] Care MR#: [id number] Acct: [id number] Name: JESSICA HAYDEN Rep #: [id number] : 1935 82 From: Coni Moreno PCP: Care Physician, No Primary Status: ADM IN JESSICA HAYDEN (Patient) (Health Ins. Claim No.) (Day of Discharge to Facility) Certification of patient admission REQUIRED AT TIME OF ADMISSION. I CERTIFY THAT POST-HOSPITAL ECF SERVICES ARE REQUIRED TO BE GIVEN ON AN IN-PATIENT BASIS BECAUSE OF THE ABOVE NAMED PATIENT'S NEED FOR LONG-TERM CARE ON A CONTINUING BASIS FOR THE CONDITION(S) FOR WHICH HE/SHE WAS RECEIVING IN-PATIENT HOSPITAL SERVICES PRIOR TO HIS/HER TRANSFER TO THE ECF. 02/26/18 0823 <Electronically signed by Coni Moreno > Date Coni Moreno ADDENDUM by Coni Moreno on 02/26/18 at 0902 Code Visit ADDITIONAL FOLLOW-UP: Please follow-up with Cardiology, [facility] (First open visit acceptable) within 2-4 weeks, may see DAYCARE DIRECTOR for syncopal event for further evaluation. 02/26/18 09 <Electronically signed by Coni Moreno > Date Coni Moreno cc: No Primary Care Physician; Ivory Crowder DO * Signed - Diet 02/21/18 16:37 Diet: Regular Diet Food consistency:: Regular Liquid Consistency:: Regular/Thin Is pt able to select menu?: Yes Supplementation: Ensure TID with meals - Routine Orders/Code Status Enema Type: Fleetz Enema Frequency: Daily PRN Suppository Type: Dulcolax 10mg Suppository Frequency: Daily PRN Routine Lab Work: - - Repeat CBC, BMP Code Status: Full Code - Wound(s) right hip Wound Type: Surgical Incision Dressing Change: Dry Sterile Dressing - Suggestions for Active Care Change Position every (hours): 2 Hours to sit in a chair: 6 Times a day to sit in chair: 3 - Therapies Weight Bearing: Weight bearing as tolerated Physical Therapy: Eval and Treat Occupational Therapy: Eval and Treat - Problem/Diagnosis (1) Closed right hip fracture Status: Acute Current Visit: Yes (2) Anemia Status: Acute Current Visit: Yes (3) Near syncope Status: Acute Current Visit: Yes (4) Malnutrition Status: Chronic Current Visit: Yes (5) Osteoporosis Status: Chronic Current Visit: Yes (6) Hypertension Status: Chronic Current Visit: Yes (7) Dyslipidemia Status: Chronic Current Visit: Yes - Allergies/Procedures Done in Hospital Allergies/Adverse Reactions: Allergies No Known Allergies Allergy (Verified 02/19/18 16:10) Procedures: 2-D Echocardiogram, Blood transfusion, EKG, - - 02/21/18 OR w/ R hip hemiarthroplasty per Dr. Cabezas - Type of Care/Length of Stay Estimated LOS: Convalescent Care Less Than 30 days Type of Care Needed: Skilled Rehab Potential: Fair Prognosis: Fair - Additional Orders/Day of Discharge Additional Orders: (1) Fall precautions, aspiration precautions. (2) OOB to chair TID w/ meals and with PT, OT. (3) IS 10x/hr 7a-7p. (4) Incisional care per Orthopedic surgery discretion. (5) Continue post-operative lovenox prophylaxis until evaluation per Orthopedic surgery w/ consideration transition to ASA only at that time. Hold if any concern for hematoma/bleeding and contact Orthopedic surgery immediately. H AND P will serve as current which was dated: 02/19/18 Day of Discharge: 02/26/18 - Dietary and Speech Recommendations Dietitian Recommendations/Changes: Rec continue liberal Regular diet w/ po supplement at [facility]pass - Follow Up Care Primary Care Physician: Care Physician,No Primary [Primary Care Provider] - Please follow up with your Primary Care Physician in: Follow- up within PCP within 1-2 days prior to SNF discharge planned. Please Follow Up With: Drake Cabezas DO When: Follow-up within 1-2 weeks following discharge 02/26/18 0823 <Electronically signed by Coin Moreno > Date Coni Moreno CC: No Primary Care Physician; Ivory Crowder DO Signed CBC W/DIFF, AUTOMATED Collected: 02/26/2018 Status: F Source: [place] 8:36 AM [facility] REPOSITORY TYPE CODE TESTS RESULT OUT OF RANGE REFERENCE UNITS LAB L100.1000 4.4-11.0 K/mm3 Normal WBC 6.8 LAB L100.1200 4.2-5.4 M/mm3 Low RBC 3.34 LAB L100.1300 12.0-15.0 g/dl Low HGB 10.3 LAB L100.1400 37-47 % Low HCT 31.3 LAB L100.1500 81-99 fL Normal MCV 93.7 LAB L100.1600 27.0-32.0 pg Normal MCH 30.8 LAB L100.1700 32-36 g/gl Normal MCHC 32.9 LAB L100.1810 11.6-14.6 % Normal RDW CV 14.4 LAB L100.1820 35.1-43.9 fl High RDW SD 47.7 LAB L100.1900 150-450 K/mm3 Normal PLT 221 LAB L100.2000 6.2-12.0 fl Normal MPV 9.8 LAB L100.2100 47-70 % High NEUT% 73.4 LAB L100.2200 19-41 % Low LY% 13.6 LAB L100.2300 0-10 % Normal MONO% 9.8 LAB L100.2400 0-5 % Normal EO% 2.8 LAB L100.2500 0-1 % Normal BASO% 0.3 LAB L100.2550 0.0-0.9 % Normal IM GRAN % 0.100 Result Comment: IG% - Immature Granulocytes (promyelocytes, myelocytes and metamyelocytes) > 1% indicates that a LEFT SHIFT is Present. LAB L100.2620 2.0-7.7 X10 3/uL Normal Absolute Neut 5.0 LAB L100.2720 0.83-4.51 X10 3/ul Normal Absolute Lymph 0.92 Performed By: #### L100.0100 #### [facility] [address] [place], [address] BASIC METABOLIC Collected: 02/26/2018 Status: F Source: [place] PROFILE ([facility]) 8:36 AM [facility] REPOSITORY TYPE CODE TESTS RESULT OUT OF RANGE REFERENCE UNITS LAB L501.0100 74-106 mg/dL Normal GLU 100 Result Comment: Fasting Glucose result from 100 to 125 mg/dL suggests IMPAIRED HOMEOSTASIS per A.D.A. criteria. Please note revised GLUCOSE reference range effective 2017. LAB L501.1000 7-18 mg/dL Normal BUN 11 LAB L501.1100 0.55-1.02 mg/dL Low CREAT,SERUM 0.44 Result Comment: The validity of the calculated GFR AND GFRAA in patients over 70 years has not been determined. Clinical correlation is essential. LAB L501.1110 >60 mL/min Normal EST GFR 143 Result Comment: Non- GFR Calc LAB L501.1115 >60 mL/min Normal EST GFR - AA 173 Result Comment: GFR Calc LAB L501.1255 ml/min Normal Estimated CRCL 30.62 LAB L501.1300 10-20 RATIO High BUN/CRE 24.7 LAB L501.2200 8.5-10 mg/dL Low .1 CA 8.3 LAB L501.5300 136-14 mmol/L Normal 5 NA 140 LAB L501.5600 3.5-5. mmol/L Normal 1 K 3.5 LAB L501.5900 98-107 mmol/L Normal CL 103 LAB L501.6100 21.0-3 mmol/L Normal 2.0 CO2 30.0 LAB L501.6200 5-15 Normal GAP 7 Performed By: #### L500.2500 #### [facility] [address] [place], [address] CBC-COMPLETE BLOOD CNT Collected: 02/24/2018 Status: F Source: [place] NO DIFF 5:15 AM [facility] REPOSITORY TYPE CODE TESTS RESULT OUT OF RANGE REFERENCE UNITS LAB L100.1000 4.4-11.0 K/mm3 Normal WBC 7.3 LAB L100.1200 4.2-5.4 M/mm3 Low RBC 3.29 LAB L100.1300 12.0-15.0 g/dl Low HGB 10.2 LAB L100.1400 37-47 % Low HCT 30.0 LAB L100.1500 81-99 fL Normal MCV 91.2 LAB L100.1600 27.0-32.0 pg Normal MCH 31.0 LAB L100.1700 32-36 g/gl Normal MCHC 34.0 LAB L100.1810 11.6-14.6 % High RDW CV 15.4 LAB L100.1820 35.1-43.9 fl High RDW SD 50.6 LAB L100.1900 150-450 K/mm3 Normal PLT 173 LAB L100.2000 6.2-12.0 fl Normal MPV 10.7 Performed By: #### L100.0500 #### [facility] [address] [place], [place], [address] CBC W/DIFF, AUTOMATED Collected: 02/23/2018 Status: F Source: [place] 7:05 AM [facility] REPOSITORY TYPE CODE TESTS RESULT OUT OF RANGE REFERENCE UNITS LAB L100.1000 4.4-11.0 K/mm3 Normal WBC 7.2 LAB L100.1200 4.2-5.4 M/mm3 Low RBC 3.05 LAB L100.1300 12.0-15.0 g/dl Low HGB 9.3 LAB L100.1400 37-47 % Low HCT 27.4 LAB L100.1500 81-99 fL Normal MCV 89.8 LAB L100.1600 27.0-32.0 pg Normal MCH 30.5 LAB L100.1700 32-36 g/gl Normal MCHC 33.9 LAB L100.1810 11.6-14.6 % High RDW CV 15.9 LAB L100.1820 35.1-43.9 fl High RDW SD 51.3 LAB L100.1900 150-450 K/mm3 Normal PLT 157 LAB L100.2000 6.2-12.0 fl Normal MPV 11.3 LAB L100.2100 47-70 % High NEUT% 72.2 LAB L100.2200 19-41 % Low LY% 15.0 LAB L100.2300 0-10 % Normal MONO% 9.2 LAB L100.2400 0-5 % Normal EO% 2.9 LAB L100.2500 0-1 % Normal BASO% 0.4 LAB L100.2550 0.0-0.9 % Normal IM GRAN % 0.300 Result Comment: IG% - Immature Granulocytes (promyelocytes, myelocytes and metamyelocytes) > 1% indicates that a LEFT SHIFT is Present. LAB L100.2620 2.0-7.7 X10 3/uL Normal Absolute Neut 5.2 LAB L100.2720 0.83-4.51 X10 3/ul Normal Absolute Lymph 1.08 Performed By: #### L100.0100 #### [facility] [address] [place], [address] BASIC METABOLIC Collected: 02/23/2018 Status: F Source: [place] PROFILE (BMP) 7:05 AM [facility] REPOSITORY TYPE CODE TESTS RESULT OUT OF RANGE REFERENCE UNITS LAB L501.0100 74-106 mg/dL Normal GLU 98 Result Comment: Please note revised GLUCOSE reference range effective 2017. LAB L501.1000 7-18 mg/dL Normal BUN 17 LAB L501.1100 0.55-1.02 mg/dL Low CREAT,SERUM 0.40 Result Comment: The validity of the calculated GFR AND GFRAA in patients over 70 years has not been determined. Clinical correlation is essential. LAB L501.1110 >60 mL/min Normal EST GFR 164 Result Comment: Non- GFR Calc LAB L501.1115 >60 mL/min Normal EST GFR - AA 199 Result Comment: GFR Calc LAB L501.1255 ml/min Normal Estimated CRCL 30.62 LAB L501.1300 10-20 RATIO High BUN/CRE 43.0 LAB L501.2200 8.5-10 mg/dL Low .1 CA 7.1 LAB L501.5300 136-14 mmol/L Normal 5 NA 143 LAB L501.5600 3.5-5. mmol/L Normal 1 K 3.5 LAB L501.5900 98-107 mmol/L High CL 110 LAB L501.6100 21.0-3 mmol/L Normal 2.0 CO2 26.0 LAB L501.6200 5-15 Normal GAP 7 Performed By: #### L500.2500 #### [facility] [address] [place], [address] MAGNESIUM Collected: 02/23/2018 Status: F Source: [place] 7:05 AM [facility] REPOSITORY Order Comment: Comments: as add on test TYPE CODE TESTS RESULT OUT OF RANGE REFERENCE UNITS LAB L501.5200 1.6-2.6 mg/dL Normal MG 2.1 Performed By: #### L501.5200 #### [facility] [address] [place], [address] HH, HEMOGLOBIN AND Collected: 02/22/2018 Status: F Source: [place] [facility] TYPE CODE TESTS RESULT OUT OF RANGE REFERENCE UNITS LAB L100.1300 12.0-15.0 g/dl Low HGB 9.4 LAB L100.1400 37-47 % Low HCT 28.5 Performed By: #### L100.0600 #### [facility] [address] [place], [place], [address] Observed: 02/22/2018 Status: F Source: [place] STOOL OCCULT BLOOD 6:44 PM [facility] IFOB REPOSITORY STOB iFOB Occult Blood Negative Performed By: #### M100.7900 #### [facility] [address] [place], [place], [address] HH, HEMOGLOBIN AND Collected: 02/22/2018 Status: F Source: [place] HEMATOCRIT 10:16 AM [facility] REPOSITORY TYPE CODE TESTS RESULT OUT OF RANGE REFERENCE UNITS LAB L100.1300 12.0-15.0 g/dl Low HGB 6.5 LAB L100.1400 37-47 % Low HCT 19.9 Performed By: #### L100.0600 #### [facility] [address] [place], [place], [address] OPERATIVE REPORT Observed: 02/22/2018 Status: F Source: [place] 7:53 AM [facility] REPOSITORY [facility] Medical Records Department [address] [place] [id number] Operative Report 02/22/18 0745 MR#: [id number] Acct: [id number] Name: JESSICA HAYDEN Rep #: [id number] : 1935 82 From: Drake Cabezas DO PCP: Care Physician, No Primary Status: ADM IN Y Location: [place] [address] Report of Operation Date of Procedure: 02/21/18 Pre-Operative Diagnosis: Right hip displaced femoral neck fracture closed Post-Operative Diagnosis: Same as above Surgery/Procedure Performed:: Right hip hemiarthroplasty-Malena Accolade press-fit Description of Surgical Findings:: 82-year-old female with fall from standing height resulting in a right closed displaced femoral neck fracture. Patient was admitted to the floor by the hospitalist team evaluated and cleared for surgical intervention. Patient was counseled and consented for the aforementioned procedure. She is met in the holding area where the right lower extremity was marked and identified by the orthopedic surgeon. Patient was taken to the operating room in satisfactory condition with somewhat to place to identify patient operative procedure and limb. Patient received 2 g of Ancef and 1 g of TXA. She underwent a successful intubation. She was then placed into the left lateral decubitus position with well- padded axillary roll and a down leg to protect the peroneal nerve. She was then prepped and draped in usual fashion. Patient had a 10 cm incision made two thirds proximal one third distal to the greater trochanter with sharp dissection down to the soft tissues and Bovie cautery control any bleeding. The tensor fascia and the IT band were longitudinally split. Patient had a small removal bursal tissue over top of the trochanter to identify the short external rotators and the gluteals. Patient then underwent a standard posterior approach with takedown of the short external rotators while the leg was gently internally rotated. The piriformis tendon was preserved. Capsule was identified longitudinally split up to the labral tissue. Fracture line was obviously visible. Patient had fractured to the distal one third of the femoral neck not quite a basicervical fracture. Fracture line was then freshened using a sagittal saw using standard technique. At that point time the head was then gently removed in continuity. Patient showed no signs of obvious arthrosis. Cotyloid and ligamentous were atrophied and then cauterized. Head diameter was measured and we elected to use a 45 mm universal bipolar head from [facility]. At that point time the femoral neck was presented and standard preparation was undertaken. Upon initial broaching I concerns about the small nature of the patient and the initial cementing broach which would not move easily down the canal. We elected to bring in the press-fit stems did an initial preparatory opening and again still felt that I was stressing the canal trying to place the initial cementing broach in place. I then elected to convert completely to a press-fit system. We gently broached up to a size 3 stem with good positioning. At that point time 0 offset neck was introduced we placed him and reduced the hip using trial components. We had excellent leg length and stability. The hip could be flexed and internally rotated to roughly 70 before any form of subluxation was identified. The patient had excellent extension and no contracture across the quads. Hip was then dislocated trial components were removed who was copious irrigated to control any excess bleeding. Appropriate glove change was performed we then impacted the size 3 Accolade 2 press-fit stem again from [place] using standard technique retrial showed better positioning with -3 offset in the head again a 45 mm outer diameter with a 26 mm inner diameter was then impacted using standard technique. Hip was reduced stability rechecked and confirmed with excellent positioning. Wounds then copious irrigated additional time and then the capsule and short external rotators were repaired through the greater trochanter using standard technique and any interval closure between the capsule and the gluteus medius was repaired. We then performed a standard layer closure with #1 Vicryl using [id number] technique to the IT band and tensor fascia. Skin was reapproximated with 2-0 Vicryl. Running subicular Monocryl Dermabond application and Silverlon placement. I was scrubbed and available time during our procedure. We had no drains or complications. Again implants included the Malena Accolade 132 femoral neck angle secondary to a preoperative 137 on the contralateral side. We used a universal bipolar head with 45 mm outer diameter and a 26 mm inner diameter again from [place]. Patient be admitted to floor for 24 hours of IV antibiotics appropriate IV and p.o. pain medication and DVT prophylaxis to include SCDs teds Lovenox 30 mg subcu daily. Patient's H AND H will be followed accordingly that she did have preoperative anemia and will likely drop from postoperative exposure and hemodilution. Patient is otherwise weightbearing as tolerated following posterior hip precautions. Any major issues please contact me. 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 Vegas Type of Anesthesia:: General Specimen's removed: Femoral head Estimated Blood Loss (mL): 150 Grafts/Implants Used: Malena Accolade 2-#3 stem 132 , 46/26 bipolar head - Complications None - Admit VTE Documentation VTE Present on Admission: No VTE Mechan Device Prophylaxis: SCD's, Knee High VENICE Hose VTE Pharm Prophylaxis ordered?: Yes 02/22/18 0753 <Electronically signed by Drake Cabezas DO> Date Drake Raulito DO CC: No Primary Care Physician; Ivory Crowder DO; Drake Cabezas DO Signed CBC-COMPLETE BLOOD CNT Collected: 02/22/2018 Status: F Source: HAIR NO DIFF 5:25 AM [facility] REPOSITORY TYPE CODE TESTS RESULT OUT OF RANGE REFERENCE UNITS LAB L100.1000 4.4-11.0 K/mm3 Normal WBC 5.4 LAB L100.1200 4.2-5.4 M/mm3 Low RBC 2.08 LAB L100.1300 12.0-15.0 g/dl Low HGB 6.6 LAB L100.1400 37-47 % Low HCT 20.1 LAB L100.1500 81-99 fL Normal MCV 96.6 LAB L100.1600 27.0-32.0 pg Normal MCH 31.7 LAB L100.1700 32-36 g/gl Normal MCHC 32.8 LAB L100.1810 11.6-14.6 % Normal RDW CV 12.3 LAB L100.1820 35.1-43.9 fl Normal RDW SD 41.5 LAB L100.1900 150-450 K/mm3 Low PLT 135 LAB L100.2000 6.2-12.0 fl Normal MPV 11.3 Performed By: #### L100.0500 #### [facility] [address] [place], [place], [address] MAGNESIUM Collected: 02/22/2018 Status: F Source: HAIR 5:25 AM [facility] REPOSITORY TYPE CODE TESTS RESULT OUT OF RANGE REFERENCE UNITS LAB L501.5200 1.6-2.6 mg/dL Low MG 1.5 Performed By: #### L501.5200 #### [facility] [address] [facility] [place], [address] BASIC METABOLIC Collected: 02/22/2018 Status: F Source: HAIR PROFILE (BMP) 5:25 AM [facility] REPOSITORY TYPE CODE TESTS RESULT OUT OF RANGE REFERENCE UNITS LAB L501.0100 74-106 mg/dL High GLU 133 Result Comment: Fasting Glucose result greater than or equal to 126 mg/dL suggests DIABETES MELLITUS per A.D.A. criteria. Please note revised GLUCOSE reference range effective 2017. LAB L501.1000 7-18 mg/dL Normal BUN 10 LAB L501.1100 0.55-1.02 mg/dL Low CREAT,SERUM 0.41 Result Comment: The validity of the calculated GFR AND GFRAA in patients over 70 years has not been determined. Clinical correlation is essential. LAB L501.1110 >60 mL/min Normal EST GFR 156 Result Comment: Non- GFR Calc LAB L501.1115 >60 mL/min Normal EST GFR - AA 188 Result Comment: GFR Calc LAB L501.1255 ml/min Normal Estimated CRCL 30.62 LAB L501.1300 10-20 RATIO High BUN/CRE 24.2 LAB L501.2200 8.5-10 mg/dL Low .1 CA 6.8 LAB L501.5300 136-14 mmol/L Normal 5 NA 140 LAB L501.5600 3.5-5. mmol/L Normal 1 K 3.6 LAB L501.5900 98-107 mmol/L Normal CL 107 LAB L501.6100 21.0-3 mmol/L Normal 2.0 CO2 29.0 LAB L501.6200 5-15 Low GAP 4 Performed By: #### L500.2500 #### [facility] [address] [place], [place], [id number] MAGNESIUM Collected: 02/21/2018 Status: F Source: [place] 7:51 PM [facility] REPOSITORY TYPE CODE TESTS RESULT OUT OF RANGE REFERENCE UNITS LAB L501.5200 1.6-2.6 mg/dL Low MG 1.5 Performed By: #### L501.5200, L501.5600 #### [facility] [address] [place], [address] POTASSIUM Collected: 02/21/2018 Status: F Source: [place] 7:51 PM [facility] REPOSITORY TYPE CODE TESTS RESULT OUT OF RANGE REFERENCE UNITS LAB L501.5600 3.5-5.1 mmol/L Low K 3.4 Performed By: #### L501.5200, L501.5600 #### [facility] [address] [place], [place], [id number] BEDSIDE GLUCOSE Collected: 02/21/2018 Status: F Source: [place] 4:08 PM [facility] REPOSITORY TYPE CODE TESTS RESULT OUT OF REFERENCE UNITS RANGE LAB L501.080 70-110 mg/dL High BEDSIDE GLU 202 Result Comment: MANAGEMENT OF PATIENT CARE PER NURSING PROTOCOL Performed By: #### L501.080 #### [facility] Point of Care [address] [place] [address] 12 LEAD ELECTROCARDIOGRAM Observed: 02/21/2018 Status: F Source: [place] 1:53 PM [facility] REPOSITORY [facility] Cardiovascular Services [address] [place] [address] 12 Lead EKG 02/19/18 1632 MR#: [id number] Acct: [id number] Name: JESSICA HAYDEN Rep #: [id number] : 1935 82 From: Tyson Oviedo MD Attending Dr: Nadege Miller MD Status: ADM IN Ordering Dr: John Ayoub MD Date: 02/19/18 Location: PA3 Sex: F C Admitted: 02/19/18 Test Reason : PRE OP Blood Pressure : / mmHG Vent. Rate : 070 BPM Atrial Rate : 070 BPM P-R Int : 132 ms QRS Dur : 076 ms QT Int : 406 ms P-R-T Axes : 103 067 054 degrees QTc Int : 438 ms Normal sinus rhythm Normal ECG Confirmed by PREET MENDOZA, TYSON ([id number]), assistant editor SANTIAGO CUTLER ([id number]) on 02/21/2018 1:53:35 PM Referred By: INA Confirmed By:TYSON OVIEDO MD 02/21/18 1353 Date Tyson Oviedo MD CC: No Primary Care Physician; John Ayoub MD; Nadege Miller MD Signed CBC-COMPLETE BLOOD CNT Collected: 02/21/2018 Status: F Source: HAIR NO DIFF 10:26 AM [facility] REPOSITORY Order Comment: Comments: To be done in PACU TYPE CODE TESTS RESULT OUT OF RANGE REFERENCE UNITS LAB L100.1000 4.4-11.0 K/mm3 Normal WBC 9.9 LAB L100.1200 4.2-5.4 M/mm3 Low RBC 3.09 LAB L100.1300 12.0-15.0 g/dl Low HGB 9.7 LAB L100.1400 37-47 % Low HCT 29.3 LAB L100.1500 81-99 fL Normal MCV 94.8 LAB L100.1600 27.0-32.0 pg Normal MCH 31.4 LAB L100.1700 32-36 g/gl Normal MCHC 33.1 LAB L100.1810 11.6-14.6 % Normal RDW CV 13.0 LAB L100.1820 35.1-43.9 fl High RDW SD 45.2 LAB L100.1900 150-450 K/mm3 Normal PLT 160 LAB L100.2000 6.2-12.0 fl Normal MPV 10.5 Performed By: #### L100.0500 #### [facility] [address] [facility] [place], [place], [address] PROTHROMBIN TIME W/INR Collected: 02/21/2018 Status: F Source: [place] 10:26 AM [facility] REPOSITORY TYPE CODE TESTS RESULT OUT OF RANGE REFERENCE UNITS LAB L300.4150 11.7-14.9 SECONDS High PROTIME 15.8 LAB L300.4200 Normal INR 1.3 Performed By: #### L300.3900 #### [facility] [address] [place], [address] BASIC METABOLIC Collected: 02/21/2018 Status: F Source: HAIR PROFILE (BMP) 10:26 AM [facility] REPOSITORY Order Comment: Comments: To be done in PACU TYPE CODE TESTS RESULT OUT OF RANGE REFERENCE UNITS LAB L501.0100 74-106 mg/dL Normal GLU 104 Result Comment: Fasting Glucose result from 100 to 125 mg/dL suggests IMPAIRED HOMEOSTASIS per A.D.A. criteria. Please note revised GLUCOSE reference range effective 2017. LAB L501.1000 7-18 mg/dL Normal BUN 10 LAB L501.1100 0.55-1.02 mg/dL Low CREAT,SERUM 0.46 Result Comment: The validity of the calculated GFR AND GFRAA in patients over 70 years has not been determined. Clinical correlation is essential. LAB L501.1110 >60 mL/min Normal EST GFR 139 Result Comment: Non- GFR Calc LAB L501.1115 >60 mL/min Normal EST GFR - AA 168 Result Comment: GFR Calc LAB L501.1255 ml/min Normal Estimated CRCL 30.62 LAB L501.1300 10-20 RATIO High BUN/CRE 21.9 LAB L501.2200 8.5-10 mg/dL Low .1 CA 7.0 LAB L501.5300 136-14 mmol/L Low 5 NA 134 LAB L501.5600 3.5-5. mmol/L Low 1 K 3.4 LAB L501.5900 98-107 mmol/L Normal CL 104 LAB L501.6100 21.0-3 mmol/L Normal 2.0 CO2 22.0 LAB L501.6200 5-15 Normal GAP 8 Performed By: #### L500.2500 #### [facility] [address] [place], [address] HIP MIN 2 VIEWS Observed: 02/21/2018 Status: F Source: [place] (PORTABLE) 9:37 AM [facility] REPOSITORY [facility] Imaging Services [address] [place] [address] Hip Min 2 Views (Portable) MR#: [id number] Acct: [id number] Name: JESSICA HAYDEN Rep #: [id number] : 1935 F 82 From: Nguyễn Paz MD PCP: Care Physician, No Primary Status: ADM IN Study: Hip Min 2 Views (Portable) Date of Exam: 02/21/18 Exam# [id number] Ordering Dr: Drake Cabezas DO STUDY: X-RAY - PELVIS AND RIGHT HIP REASON FOR EXAM: Female, 82 years old. Total right hip replacement. TECHNIQUE: Radiological exam, hip, unilateral, with pelvis when performed; 2 or 3 views. COMPARISON: Comparison is made with prior examination dated February 19, 2018. FINDINGS: The patient is status post right total hip replacement. There is good alignment. Postoperative soft tissue changes. RAD/Hip Min 2 Views (Portable) IMPRESSION: Status post right total hip replacement. There is good alignment. Postoperative soft tissue changes. Electronically Signed: Nguyễn Paz MD at 12:34 EDT Tel [phone], Service support , CC: No Primary Care Physician; Drake Cabezas DO Tennis Ball Cover Cementer: Signed CBC W/DIFF, AUTOMATED Collected: 02/21/2018 Status: F Source: [place] 5:14 AM [facility] REPOSITORY TYPE CODE TESTS RESULT OUT OF RANGE REFERENCE UNITS LAB L100.1000 4.4-11.0 K/mm3 Normal WBC 7.4 LAB L100.1200 4.2-5.4 M/mm3 Low RBC 3.31 LAB L100.1300 12.0-15.0 g/dl Low HGB 10.7 LAB L100.1400 37-47 % Low HCT 31.8 LAB L100.1500 81-99 fL Normal MCV 96.1 LAB L100.1600 27.0-32.0 pg High MCH 32.3 LAB L100.1700 32-36 g/gl Normal MCHC 33.6 LAB L100.1810 11.6-14.6 % Normal RDW CV 12.5 LAB L100.1820 35.1-43.9 fl Normal RDW SD 42.2 LAB L100.1900 150-450 K/mm3 Normal PLT 153 LAB L100.2000 6.2-12.0 fl Normal MPV 11.3 LAB L100.2100 47-70 % High NEUT% 83.1 LAB L100.2200 19-41 % Low LY% 8.3 LAB L100.2300 0-10 % Normal MONO% 7.1 LAB L100.2400 0-5 % Normal EO% 1.1 LAB L100.2500 0-1 % Normal BASO% 0.3 LAB L100.2550 0.0-0.9 % Normal IM GRAN % 0.100 Result Comment: IG% - Immature Granulocytes (promyelocytes, myelocytes and metamyelocytes) > 1% indicates that a LEFT SHIFT is Present. LAB L100.2620 2.0-7.7 X10 3/uL Normal Absolute Neut 6.2 LAB L100.2720 0.83-4.51 X10 3/ul Low Absolute Lymph 0.62 Performed By: #### L100.0100 #### [facility] [address] [place], [address] BASIC METABOLIC Collected: 02/21/2018 Status: F Source: [place] PROFILE (BMP) 5:14 AM [facility] REPOSITORY TYPE CODE TESTS RESULT OUT OF RANGE REFERENCE UNITS LAB L501.0100 74-106 mg/dL High GLU 109 Result Comment: Fasting Glucose result from 100 to 125 mg/dL suggests IMPAIRED HOMEOSTASIS per A.D.A. criteria. Please note revised GLUCOSE reference range effective 2017. LAB L501.1000 7-18 mg/dL Normal BUN 11 LAB L501.1100 0.55-1.02 mg/dL Low CREAT,SERUM 0.41 Result Comment: The validity of the calculated GFR AND GFRAA in patients over 70 years has not been determined. Clinical correlation is essential. LAB L501.1110 >60 mL/min Normal EST GFR 158 Result Comment: Non- GFR Calc LAB L501.1115 >60 mL/min Normal EST GFR - AA 191 Result Comment: GFR Calc LAB L501.1255 ml/min Normal Estimated CRCL 30.62 LAB L501.1300 10-20 RATIO High BUN/CRE 27.0 LAB L501.2200 8.5-10 mg/dL Low .1 CA 7.3 LAB L501.5300 136-14 mmol/L Normal 5 NA 138 LAB L501.5600 3.5-5. mmol/L Low 1 K 3.4 LAB L501.5900 98-107 mmol/L Normal CL 104 LAB L501.6100 21.0-3 mmol/L Normal 2.0 CO2 25.0 LAB L501.6200 5-15 Normal GAP 9 Performed By: #### L500.2500 #### [facility] [address] [place], [address] TOTAL HIP REPLACEMENT Observed: 02/21/2018 Status: F Source: [place] 12:00 AM [facility] REPOSITORY Patient: JESSICA HAYDEN : 1935 (82/F) Acct Num: [id number] Phys: Coni Moreno Unit Num: [id number] Loc: [facility] [id number] Specimen: [id number] Received: 02/21/18 - 141 Spec Type: TOTAL HIP TISSUES TISSUES: Hip, NOS GROSS DESCRIPTION Received is one container labeled with the patient's name and designated right femoral head, bone and tissue. The specimen consists of a femoral head measuring 4 x 4 x 3.5 cm. A piece of soft tissue is also noted at the top of the femoral head. The articular surface is smooth. The resection margin is irregular and hemorrhagic. Also present in the specimen container are multiple detached pieces of bone measuring in aggregate 4 x 3.5 x 1 cm. Also present in the container are multiple pieces of soft tissue including soft tissue present on the top of the femoral head measuring in aggregate 4 x 4 x 0.5 cm. Dashboard Developer sections are submitted in three cassettes as follows: 1 - soft tissue, 2 - detached pieces of bone after decalcification, 3 - femoral head after decalcification. / SJ:nelida 02/21/18 TC:5 CPT: 62905, 78905 HEADER OPERATION: Hemiarthroplasty, hip PRE-OP DIAGNOSIS: Closed right hip fracture TISSUE SUBMITTED: Right femoral head bone and tissue MICROSCOPIC DESCRIPTION Slides are reviewed. MICROSCOPIC DIAGNOSIS Bone and soft tissue of right hip, total hip resection: Consistent with fracture callus. AM:nelida 02/27/18 Signed [facility] 02/27/18 <signature on file> Performed By: #### PHIP #### [facility] [address] [place], [place], [address] ECHOCARDIOGRAM COMPLETE Observed: 02/20/2018 Status: F Source: [place] 2:42 PM [facility] REPOSITORY [facility] Cardiovascular Services [address] [place] [address] Echo Complete 02/20/18 0830 MR#: [id number] Acct: [id number] Name: JESSICA HAYDEN Rep #: [id number] : 1935 82 From: Tyson Oviedo MD Attending Dr: Nadege Miller MD Status: ADM IN Ordering Dr: Wilfred Reed MD Date: 02/19/18 Location: [facility] Sex: F C Admitted: 02/19/18 Reason For Study: near syncope Procedure This was a 2D Doppler, Color Flow transthoracic echocardiogram. The study was technically difficult. PT scanned in supine position due to RT hip Fx. Exam performed portable in patient room. Left Ventricle Normal LV size. Left ventricular systolic function is normal. The estimated ejection fraction is 60 %. Transmitral diastolic flow velocities suggest mild (stage 1) diastolic dysfunction (reversed pattern). No regional wall motion abnormalities noted. Right Ventricle Normal RV size. Normal systolic function. Atria Normal left atrium. Normal right atrium. Mitral Valve Normal mitral valve. Tricuspid Valve Normal tricuspid valve. Mild (1+) tricuspid valve insufficiency. Pulmonary artery systolic pressure is 34 mmHg. Aortic Valve Trisinus/trileaflet aortic valve. Pulmonic Valve Normal pulmonic valve. Great Vessels Normal aortic root. The pulmonary artery is normal size. Inferior vena cava collapse with sniff. Pericardium/Pleural No pericardial effusion. MMode/2D Measurements AND Calculations LVIDd: 3.5 cm IVSd: 0.86 cm Ao root diam: 2.6 cm LVIDs: 2.5 cm LVPWd: 0.88 cm RVDd: 2.5 cm FS: 29.1 % LAV(MOD-bp): 44.5 ml LA A4 area: 14.9 cm2 RA A4 area: 11.3 cm2 LAV(MOD-bp) Indexed: 31.9 ml/m2 LAV(MOD-sp2): 47.0 ml LAV(MOD-sp4): 39.0 ml Doppler Measurements AND Calculations MV E max ramin: 86.1 cm/sec Lat Peak E' Ramin: 8.4 cm/sec Med Peak E' Ramin: 10.2 cm/sec MV A max ramin: 90.3 cm/sec E/E' lat: 10.2 E/E' med: 8.4 MV E/A: 0.95 Ao V2 max: 149.9 cm/sec LV V1 max: 85.0 cm/sec PA V2 max: 77.0 cm/sec Ao max P.0 mmHg LV V1 max P.9 mmHg PI end-d ramin: 109.3 cm/sec TR max ramin: 277.9 cm/sec TR max P.1 mmHg Interpretation Summary Normal LV size. Left ventricular systolic function is normal. The estimated ejection fraction is 60 %. Transmitral diastolic flow velocities suggest mild (stage 1) diastolic dysfunction (reversed pattern). Ordering Physician: Wilfred Reed Referring Physician: MIKAELA PCP Performed By: Nikia Sutton RDCS, RVT 02/20/18 1441 Date Tyson Oviedo MD CC: No Primary Care Physician; Nadege Miller MD; Wilfred Reed MD Date Dictated: 02/20/18829 Date Transcribed: 02/20/18 1441 Tennis Ball Cover Cementer: Signed CBC W/DIFF, AUTOMATED Collected: 02/20/2018 Status: F Source: [place] 5:24 AM [facility] REPOSITORY TYPE CODE TESTS RESULT OUT OF RANGE REFERENCE UNITS LAB L100.1000 4.4-11.0 K/mm3 Normal WBC 7.3 LAB L100.1200 4.2-5.4 M/mm3 Low RBC 3.47 LAB L100.1300 12.0-15.0 g/dl Low HGB 10.9 LAB L100.1400 37-47 % Low HCT 32.3 LAB L100.1500 81-99 fL Normal MCV 93.1 LAB L100.1600 27.0-32.0 pg Normal MCH 31.4 LAB L100.1700 32-36 g/gl Normal MCHC 33.7 LAB L100.1810 11.6-14.6 % Normal RDW CV 12.8 LAB L100.1820 35.1-43.9 fl Normal RDW SD 43.1 LAB L100.1900 150-450 K/mm3 Normal PLT 171 LAB L100.2000 6.2-12.0 fl Normal MPV 10.8 LAB L100.2100 47-70 % High NEUT% 77.7 LAB L100.2200 19-41 % Low LY% 12.3 LAB L100.2300 0-10 % Normal MONO% 8.4 LAB L100.2400 0-5 % Normal EO% 1.2 LAB L100.2500 0-1 % Normal BASO% 0.3 LAB L100.2550 0.0-0.9 % Normal IM GRAN % 0.100 Result Comment: IG% - Immature Granulocytes (promyelocytes, myelocytes and metamyelocytes) > 1% indicates that a LEFT SHIFT is Present. LAB L100.2620 2.0-7.7 X10 3/uL Normal Absolute Neut 5.7 LAB L100.2720 0.83-4.51 X10 3/ul Normal Absolute Lymph 0.90 Performed By: #### L100.0100 #### [facility] [address] [place], [address] TYPE AND SCREEN Collected: 02/20/2018 Status: F Source: [place] 5:24 AM [facility] REPOSITORY Order Comment: Comments: per surgical protocol Reason for Type AND Screen/Red Cells: SURGERY Surgery Date: 02/20/18 Type of Surgery: FRACTURED HIP TYPE CODE TESTS RESULT OUT OF RANGE REFERENCE UNITS LAB B10.0800 O Normal BLOOD TYPE GEL POSITIVE LAB B100.4000 Normal Antibody NEGATIVE Screen Performed By: #### B101.7450 #### [facility] [address] [place], [address] RC Collected: 02/20/2018 Status: F Source: [place] 5:24 AM [facility] REPOSITORY TYPE CODE TESTS RESULT OUT OF REFERENCE UNITS RANGE LAB U100.0000 [id number] TRANSFUSED PRODUCT: T AND S with Crossmatch, Red Cells COUNT: 2 Performed By: #### U100.0000 #### Non-[facility] - refer to report for specific site TROPONIN-I Collected: 02/19/2018 Status: F Source: [place] 8:21 PM [facility] REPOSITORY TYPE CODE TESTS RESULT OUT OF RANGE REFERENCE UNITS LAB L501.4010 <0.045 ng/mL Normal < 0.015 TROPONIN-I Result Comment: TROPONIN-I EXPECTED VALUES <0.045 Negative 0.045 - 0.590 Consistent with Cardiac Damage > OR = 0.600 Critical Value Not every elevated troponin is indicative of [place]. These values should be used with clinical judgement in examining the patient's clinical picture for diagnosis. To establish a diagnosis of [place] versus myocardial injury, there must be a demonstrated rise and/or fall in the troponin values, in addition to ischemic symptoms, EKG changes, new regional wall motion abnormality, and/or angiographical evidence. PLEASE NOTE: REFERENCE RANGES EDITED 17 Performed By: #### L501.4010 #### [facility] [address] [place], [address] CONSULTATION Observed: 02/19/2018 Status: F Source: [place] 8:04 PM [facility] REPOSITORY [facility] Medical Records Department [address] [place] [address] Consultation 02/19/18 1957 MR#: [id number] Acct: [id number] Name: JESSICA HAYDEN Rep #: [id number] : 1935 82 From: Drake Cabezas DO PCP: Care Physician, No Primary Status: ADM IN Y Location: [facility] [id number] - Consult Date of Consult: 02/19/18 - Reason for Consult 82-year-old female with a fall from standing height after a dizziness episode resulting in a right closed displaced cervical neck fracture. Patient was seen on the floor after admission by the hospitalist team. Dr. Reed, [facility] hospitalist, felt that at this point time the patient was looking to be cleared for surgical intervention tomorrow as the patient does not have any significant underlying comorbidities is relatively low risk. The daughter does report that her mother was to have had an appointment with [facility] is routine follow-up as she has had some degree of a syncopal episode in the past but with a negative workup. Patient at this point time only reports having some mild right knee pain where no x-rays were performed at this point. She otherwise states her only real complaint is to her right hip. Patient is otherwise resting comfortably in her room again accompanied by her daughter. Denies any other significant fevers chills nausea vomiting chest pain or shortness of breath. Points to her right hip. Patient also points to the right knee. Objective: Patient is otherwise alert and oriented 3 in no acute distress. Patient is appropriate eye contact and affect. She remains intact from L1-S1 distributions bilaterally. Patient has +2 pulses. Patient has no long bone pain with palpation to the left lower extremity. She has no signs of knee effusion or ecchymosis allow me to gently internally X rotate the hip without difficulty. The right lower extremity is obviously shortened versus the contralateral side. Patient has no pain with palpation across the tibia or the ankle or foot. Her peroneal motor function is 5 out of 5. Patient shows no signs of any effusion currently but does have some pain with with gentle movement of the knee but that may be referred pain from the hip. She does appear to be ligamentously stable with 1A [place]. And she allowed me to examine her at 0 and 30 of varus valgus stress with no abnormalities. Patient shows very mild ecchymosis to the right hip. Otherwise mildly tender palpation to the trochanter as expected. Again the EHL anterior gastrocsoleus peroneals 5 out of 5 to the right lower extremity. Lab values reviewed. H AND H is stable at this time. X-rays:-Patient shows a displaced mid cervical femoral neck fracture. No significant acetabular osteoarthritis can be appreciated to the right hip. Assessment: Right closed displaced midcervical femoral neck fracture initial encounter, dizziness, right hip pain, mild anemia. Plan: At this point time an extensive discussion with the patient and the daughter about the planned surgical intervention for tomorrow. I did tell the patient he can make a nonoperative treatment with the patient be nonweightbearing and would have significant pain and discomfort. At this point time the patient and family would like to proceed. Patient understands risks and benefits to include damage to nerves muscles arteries and veins, development of DVT PE infection or . Patient is at risk for dislocation and periprosthetic fracture. Patient was also warned about adverse reaction to canal reaming and the use of cement. Patient would like to proceed at this point time again with a right cemented hemiarthroplasty or any indicated procedure. Anticipate surgery tomorrow hopefully around 930 or 10 perhaps even 1030. I am to follow 1 of the other providers at this time. I will make the patient n.p.o. for surgery. Hold [employer]. I have asked for Ancef to the chart and also TXA to the chart to be given prior to incision to decrease the risks of postoperative blood loss. The patient is aware of the possible need for transfusion if needed. Based on the patient's age patient would be a good candidate for fdc facility for rehab as well. There is any major issues please contact me. 02/19/182003 <Electronically signed by Drake Cabezas DO> Date Drake Mcintosh Signature (if applicable): Date CC: No Primary Care Physician; Ivory Crowder DO Signed HISTORY AND PHYSICAL Observed: 02/19/2018 Status: F Source: HAIR EXAM 7:53 PM [facility] REPOSITORY [facility] Medical Records Department [address] [place] [address] History and Physical 02/19/181909 MR#: [id number] Acct: [id number] Name: JESSICA HAYDEN Rep #: [id number] : 1935 82 From: Wilfred Reed MD PCP: Care Physician, No Primary Status: ADM IN Location: [address] ADDENDUM by Wilfred Reed MD on 02/19/18 at 1953 Code Visit Transient near syncope: Patient does not have history of near syncope or vertigo. Orthostatic blood pressure, 2D echo, and troponin ordered. 02/19/181952 <Electronically signed by Wilfred Reed MD> Date Wilfred Reed MD cc: No Primary Care Physician; Wilfred Reed MD * Signed ADDENDUM by Wilfred Reed MD on 02/19/18 at 1945 Code Visit 2D echo also ordered as she had transient dizziness. History of hypertension but blood pressure is controlled. 02/19/181944 <Electronically signed by Wilfred Reed MD> Date Wilfred Reed MD cc: No Primary Care Physician; Wilfred Reed MD * Signed ADDENDUM by Wilfred Reed MD on 02/19/18 at 1940 Code Visit Dizziness, was transient. Resolved. No cardiac history. EKG is normal. 1 troponin ordered. 02/19/181939 <Electronically signed by Wilfred Reed MD> Date Wlifred Reed MD cc: No Primary Care Physician; Wilfred Reed MD * Signed Problem List (1) Closed right hip fracture Status: Acute (2) Osteoporosis Status: Chronic (3) Hypertension Status: Chronic (4) Dyslipidemia Status: Chronic History of Present Illness Date of Admission: 02/19/18 Chief Complaint: Fall and right hip fracture The patient is a 82 year old F with no significant past medical history other than hypertension, dyslipidemia and osteoporosis on Fosamax came to ER when she fell down after she felt dizzy in her right knee gave out when she was pushing a wheelchair. 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 She denies abnormal chest sensation including arrhythmia, chest pain or shortness of breath. She denies chronic lung disease or heart disease, stroke or peripheral arterial disease or previous dislocation or fracture. In ED, right hip pelvis x-ray shows a right femoral neck fracture. Her initial basic lab work in ER shows hemoglobin 10.6 otherwise unremarkable. EKG shows normal sinus rhythm at 70 bpm. Past Medical History Past Medical History (Chronic Problems): Chronic Problems Osteoporosis (Chronic) Hypertension (Chronic) Dyslipidemia (Chronic) Allergies No Known Allergies Allergy (Verified 02/19/18 16:10) Home Medications: Ambulatory Orders Medication Instructions Recorded Alendronate Sodium [Fosamax] 70 mg PO TU 02/19/18 Aspirin [Aspirin, Baby] 81 mg PO DAILY@0800 02/19/18 Atorvastatin Calcium [Lipitor] 20 mg PO QHS 02/19/18 Smoking Status: Never smoker Tobacco Use: Non-smoker Review of Systems Constitutional: Denies: Chills, Fever, Weight Change HEENT: Denies: Head Aches, Sinus Congestion, Sinus Drainage Cardiovascular: Reports: Light Headedness. Denies: Chest Pain, Palpitations Respiratory: Denies: Cough, Shortness of breath at rest, Sputum production Gastrointestinal: Denies: Abdominal Pain, Nausea, Vomiting Genitourinary: Denies: Dysuria Musculoskeletal: Reports: Joint Pain, Joint Tenderness, Muscle pain Skin: Denies: Rash, Wounds Neurological: Reports: Balance problems. Denies: Focal weakness, Numbness, Tingling Psychiatric: Denies: Anxiety, Depression, Homicidal Ideations, Suicidal Ideations Hematologic/ Lymphatic: Denies: Easy Bruising, Easy Bleeding VTE Information - Inpt Only VTE Present on Admission: No VTE Mechan Device Prophylaxis: SCD's VTE Pharm Prophylaxis ordered?: Yes Patient Problems: Active and Suspected Problems Closed right hip fracture (Acute) - Physical Exam General: Alert, Oriented x3, Cooperative HEENT: Atraumatic, PERRLA, EOMI, Normocephalic, - - Edentulous Oral: Dry Mucosa Neck: Supple, No JVD, Negative Carotid Bruits Lungs: Clear to auscultation, Normal air movement, No rhonchi, No wheeze Cardiovascular: Regular rate, Regular Rhythm, Normal S1, Normal S2, No murmurs Abdomen: Bowel Sounds Present, Soft, Non Tender, Non-Distended, - - Urinary bladder is distended. Extremities: No edema, Capillary Refill Less than 3 Seconds Skin: No rashes, No breakdown Musculoskeletal: Arthritic Changes, Tenderness - Tenderness present over right hip joint and right knee. Right lower extremity is short and externally rotated. Neurological: Cranial nerves II-XII grossly intact Psych/Mental Status: Normal Affect, Appropriate Vital Signs Temp Pulse Resp BP Pulse Ox 98.2 F 66 16 127/71 H 93 02/19/18 16:12 02/19/18 18:33 02/19/18 18:33 02/19/18 18:33 02/19/18 18:33 Assessment/Plan All Active Problems Closed right hip fracture (Acute) The patient is a 82 year old F with no significant past medical history other than hypertension, dyslipidemia and osteoporosis on Fosamax came to ER when she fell down after she felt dizzy in her right knee gave out when she was pushing a wheelchair. 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 She denies abnormal chest sensation including arrhythmia, chest pain or shortness of breath. She denies chronic lung disease or heart disease, stroke or peripheral arterial disease or previous dislocation or fracture. In ED, right hip pelvis x-ray shows a right femoral neck fracture. Her initial basic lab work in ER shows hemoglobin 10.6 otherwise unremarkable. EKG shows normal sinus rhythm at 70 bpm. 1. Right closed, pathological, mechanical hip fracture: The patient is being admitted on regular [facility] floor. ED physician consulted Dr. Crowder for right hip surgery. As per Yo perioperative cardiac risk is 0.22% that is low to moderate risk. Patient has preoperative good functional capacity and she was independent. PT and OT ordered. IV fluid normal saline. 2. Hypertension, and dyslipidemia, Blood pressure is controlled 127/71. Glucose is 104 milligrams percent. 3. Bony disorder: Osteoporosis and bilateral diffuse degenerative joint disease: Home medication reconciliation done. Continue vitamin D, Fosamax. DVT prophylaxis on heparin 5000 units twice daily and bilateral SCDs. Hold heparin 6 hours prior to surgery. Laboratory Results 02/19/18 16:35: WBC 5.9, RBC 3.35 L, Hgb 10.6 L, Hct 32.4 L, MCV 96.7, MCH 31.6, MCHC 32.7, RDW 12.5, RDW Differential 43.0, Plt Count 195, MPV 11.0, Immature Gran % (Auto) 0.300, Neut % (Auto) 70.6 H, Lymph % (Auto) 18.8 L, Ransom % (Auto) 9.2, Eos % (Auto) 0.8, Baso % (Auto) 0.3, Absolute Neuts (auto) 4.2, Absolute Lymphs (auto) 1.11, Total Counted Not Reportable 02/19/18 16:35: PT 14.3, INR 1.1, APTT 28.9 02/19/18 16:35: Sodium 140, Potassium 3.8, Chloride 102, Carbon Dioxide 30.0, Anion Gap 8, BUN 18, Creatinine 0.67, Estim Creat Clear Calc 30.62, Est GFR (MDRD) Af Amer 108, Est GFR (MDRD) Non-Af 89, BUN/Creatinine Ratio 26.8 H, Glucose 104, Calcium 8.3 L Clinical Impression(s) from Imaging Studies Brain CT 02/19/18 16:20 IMPRESSION: Chronic involutional changes of the brain. Hip/Pelvis X-Ray 02/19/18 16:20 IMPRESSION: Right femoral neck transection Chest X-Ray 02/19/18 17:20 IMPRESSION: Calcified bihilar lymph nodes. No acute findings Code Visit Inpatient E AND M: 85424 Init Hosp L2 02/19/18 1930 <Electronically signed by Wilfred Reed MD> Date Wilfred Reed MD Cosigner Signature: Date (if applicable) CC: No Primary Care Physician; Wilfred Reed MD Signed KNEE 1 OR 2 VIEWS Observed: 02/19/2018 Status: F Source: HAIR 7:34 PM [facility] REPOSITORY [facility] Imaging Services [address] [place] [address] Knee 1 or 2 Views MR#: [id number] Acct: [id number] Name: JESSICA HAYDEN Rep #: [id number] : 1935 F 82 From: Max Rodriguez DO PCP: Care Physician, No Primary Status: ADM IN Study: Knee 1 or 2 Views Date of Exam: 02/19/18 Exam# [id number] Ordering Dr: Wilfred Reed MD STUDY: X-RAY - RIGHT KNEE REASON FOR EXAM: Female, 82 years old. Right knee pain after fall TECHNIQUE: 2 view(s) of the knee. COMPARISON: None. FINDINGS: Normal visualized distal femur. Normal visualized proximal tibia and fibula. Normal proximal tibiofibular articulation. There is mild degenerative arthrosis of the medial femorotibial compartment. There is mild degenerative arthrosis of the lateral femorotibial compartment. Normal patellofemoral articulation. The soft tissue structures are unremarkable. RAD/Knee 1 or 2 Views IMPRESSION: Degenerative arthrosis. Electronically Signed: Max Rodriguez DO at 20:22 EDT Tel , Service support , CC: No Primary Care Physician; Wilfred Reed MD Tennis Ball Cover Cementer: Signed EMERGENCY DEPARTMENT Observed: 02/19/2018 Status: F Source: [place] SUMMARY 6:39 PM [facility] REPOSITORY [facility] Medical Records Department [address] [place] [address] Emergency Department Summary 02/19/18 1623 MR#: [id number] Acct: [id number] Name: JESSICA HAYDEN Rep #: [id number] : 1935 82 From: John Ayoub MD PCP: Care Physician, No Primary Status: ADM IN - ER Visit Summary Date of Service: 02/19/18 Chief Complaint: Fall History of Present Illness: The patient is a 82 F who fell today. Her knee gave out and she fell to the ground from standing. She complains of pain to her right hip. She denies head or neck pain, but she is not sure if she lost consciousness. She denies blood thinners. Denies weakness or numbness. Denies any other injuries or complaints Physical Examination: Head and neck atraumatic. Neck nontender. Heart regular rate and rhythm. Lungs clear. Abdomen soft. Right hip tender to palpation. Right leg shortened and rotated. Positive logroll. Neurovascular intact distally. Test Results: CT, chest x-ray, right hip x-ray, labs pending. Emergency Department Course and Treatment: Patient likely has right hip fracture. Treated with morphine and Zofran while awaiting results. Patient has a right-sided femoral neck fracture. CT head and chest x-ray just showed chronic changes. Labs fairly unremarkable. Patient remained stable. Did not require additional medicine for pain. I spoke with Dr. Crowder who will follow. Dr. Reed will admit. Treatment Plan: As above Disposition: Admission Impression: 1. Right femoral neck fracture This note was generated with Any.DO dictation software. It may contain incorrect words, spelling, and punctuation that were not noted in review of the chart prior to signing ED Disposition - Plan for ED Patient: Chief Complaint: Lower Extremity Injury What to do if you have Problems For any increased pain, shortness of breath, bleeding, nausea or vomiting, chest pain, or any unexpected problems, contact your Primary Care Provider. Call [facility] ([phone]) or report to the closest Emergency Room. Call 911 if necessary. 02/19/18 9702 <Electronically signed by John Ayoub MD> Date John Ayoub MD Cosigner Signature (If Indicated): Date CC: No Primary Care Physician CBC W/DIFF, AUTOMATED Collected: 02/19/2018 Status: F Source: [place] 4:35 PM [facility] REPOSITORY TYPE CODE TESTS RESULT OUT OF RANGE REFERENCE UNITS LAB L100.1000 4.4-11.0 K/mm3 Normal WBC 5.9 LAB L100.1200 4.2-5.4 M/mm3 Low RBC 3.35 LAB L100.1300 12.0-15.0 g/dl Low HGB 10.6 LAB L100.1400 37-47 % Low HCT 32.4 LAB L100.1500 81-99 fL Normal MCV 96.7 LAB L100.1600 27.0-32.0 pg Normal MCH 31.6 LAB L100.1700 32-36 g/gl Normal MCHC 32.7 LAB L100.1810 11.6-14.6 % Normal RDW CV 12.5 LAB L100.1820 35.1-43.9 fl Normal RDW SD 43.0 LAB L100.1900 150-450 K/mm3 Normal PLT 195 LAB L100.2000 6.2-12.0 fl Normal MPV 11.0 LAB L100.2100 47-70 % High NEUT% 70.6 LAB L100.2200 19-41 % Low LY% 18.8 LAB L100.2300 0-10 % Normal MONO% 9.2 LAB L100.2400 0-5 % Normal EO% 0.8 LAB L100.2500 0-1 % Normal BASO% 0.3 LAB L100.2550 0.0-0.9 % Normal IM GRAN % 0.300 Result Comment: IG% - Immature Granulocytes (promyelocytes, myelocytes and metamyelocytes) > 1% indicates that a LEFT SHIFT is Present. LAB L100.2620 2.0-7.7 X10 3/uL Normal Absolute Neut 4.2 LAB L100.2720 0.83-4.51 X10 3/ul Normal Absolute Lymph 1.11 Performed By: #### L100.0100 #### [facility] [address] [place], [address] BASIC METABOLIC Collected: 02/19/2018 Status: F Source: [place] PROFILE (BMP) 4:35 PM [facility] REPOSITORY TYPE CODE TESTS RESULT OUT OF RANGE REFERENCE UNITS LAB L501.0100 74-106 mg/dL Normal GLU 104 Result Comment: Fasting Glucose result from 100 to 125 mg/dL suggests IMPAIRED HOMEOSTASIS per A.D.A. criteria. Please note revised GLUCOSE reference range effective 2017. LAB L501.1000 7-18 mg/dL Normal BUN 18 LAB L501.1100 0.55-1.02 mg/dL Normal CREAT,SERUM 0.67 Result Comment: The validity of the calculated GFR AND GFRAA in patients over 70 years has not been determined. Clinical correlation is essential. LAB L501.1110 >60 mL/min Normal EST GFR 89 Result Comment: Non- GFR Calc LAB L501.1115 >60 mL/min Normal EST GFR - AA 108 Result Comment: GFR Calc LAB L501.1255 ml/min Normal Estimated CRCL 30.62 LAB L501.1300 10-20 RATIO High BUN/CRE 26.8 LAB L501.2200 8.5-10 mg/dL Low .1 CA 8.3 LAB L501.5300 136-14 mmol/L Normal 5 NA 140 LAB L501.5600 3.5-5. mmol/L Normal 1 K 3.8 LAB L501.5900 98-107 mmol/L Normal CL 102 LAB L501.6100 21.0-3 mmol/L Normal 2.0 CO2 30.0 LAB L501.6200 5-15 Normal GAP 8 Performed By: #### L500.2500 #### [facility] [address] [place], [address] PROTHROMBIN TIME W/INR Collected: 02/19/2018 Status: F Source: [place] 4:35 PM [facility] REPOSITORY TYPE CODE TESTS RESULT OUT OF RANGE REFERENCE UNITS LAB L300.4150 11.7-14.9 SECONDS Normal PROTIME 14.3 LAB L300.4200 Normal INR 1.1 Performed By: #### L300.3900, L300.4310 #### [facility] [address] [place], [address] PARTIAL THROMBOPLAST Collected: 02/19/2018 Status: F Source: [place] TIME 4:35 PM [facility] REPOSITORY TYPE CODE TESTS RESULT OUT OF RANGE REFERENCE UNITS LAB L300.4310 24.1-36.2 Seconds Normal PTT 28.9 Performed By: #### L300.3900, L300.4310 #### [facility] [address] [place], [address] BRAIN/HEAD WITHOUT Observed: 02/19/2018 Status: F Source: [place] CONTRAST 4:23 PM [facility] REPOSITORY [facility] Imaging Services [address] [place] [address] Brain/Head without Contrast MR#: [id number] Acct: [id number] Name: JESSICA HAYDEN Rep #: [id number] : 1935 F 82 From: Max Rodriguez DO PCP: Care Physician, No Primary Status: REG ER Study: Brain/Head without Contrast Date of Exam: 02/19/18 Exam# [id number] Ordering Dr: John Ayoub MD STUDY: CT BRAIN WITHOUT CONTRAST REASON FOR EXAM: Female, 82 years old. Fall with head injury RADIATION DOSAGE (If Supplied By Facility): CTDIvol = ( 44.99 ) mGy, DLP = ( 745.49 ) mGycm TECHNIQUE: Transaxial CT imaging of the brain was performed without administration of intravenous contrast material. Individualized dose optimization techniques were used for this CT. COMPARISON: None. FINDINGS: Normal soft tissue structures. Normal calvarium. There is mild cerebral atrophy with widening of the extra- axial spaces and ventricular dilatation. There are areas of decreased attenuation within the white matter tracts of the supratentorial brain, consistent with microvascular disease changes. Normal basal ganglia and thalami. Normal brainstem. There is mild cerebellar atrophy. There is no intracranial hemorrhage. There are no findings of an acute ischemic infarction. Normal visualized paranasal sinuses. CT/Brain/Head without Contrast IMPRESSION: Chronic involutional changes of the brain. Electronically Signed: Max Rodriguez DO at 17:16 EDT Tel , Service support , CC: No Primary Care Physician; John Ayoub MD Tennis Ball Cover Cementer: Signed CHEST 1 VIEW Observed: 02/19/2018 Status: F Source: [place] (PORTABLE) 4:23 PM [facility] REPOSITORY [facility] Imaging Services [address] [place] [address] Chest 1 View (Portable) MR#: [id number] Acct: [id number] Name: JESSICA HAYDEN Rep #: [id number] : 1935 F 82 From: Max Rodriguez DO PCP: Care Physician, No Primary Status: REG ER Study: Chest 1 View (Portable) Date of Exam: 02/19/18 Exam# [id number] Ordering Dr: John Ayoub MD STUDY: X-RAY CHEST REASON FOR EXAM: Female, 82 years old. Trauma TECHNIQUE: Single AP portable view of the chest. COMPARISON: None. FINDINGS: The lungs are clear and expanded. There is no demonstrated pleural abnormality. Normal size heart. Calcified bihilar lymph nodes. Normal visualized pulmonary arteries. Normal visualized aortic arch and descending thoracic aorta. There are diffuse degenerative changes of the visualized thoracic spine. There is degenerative osteoarthritis of the bilateral shoulders. There is no demonstrated abnormality of the visualized soft tissue structures of the upper abdomen. RAD/Chest 1 View (Portable) IMPRESSION: Calcified bihilar lymph nodes. No acute findings Electronically Signed: Max Rodriguez DO at 17:46 EDT Tel , Service support , CC: No Primary Care Physician; John Ayoub MD Tennis Ball Cover Cementer: Signed HIP 2-3 VIEWS WITH Observed: 02/19/2018 Status: F Source: [place] PELVIS 4:23 PM [facility] REPOSIT[facility] Imaging Services [address] [place] [address] Hip 2-3 Views with Pelvis MR#: [id number] Acct: [id number] Name: JESSICA HAYDEN Rep #: [id number] : 1935 F 82 From: Max Rodriguez DO PCP: Care Physician, No Primary Status: REG ER Study: Hip 2-3 Views with Pelvis Date of Exam: 02/19/18 Exam# [id number] Ordering Dr: John Ayoub MD STUDY: X-RAY - PELVIS AND RIGHT HIP REASON FOR EXAM: Female, 82 years old. Right hip pain after fall TECHNIQUE: Radiological exam, hip, unilateral, with pelvis when performed; 2 or 3 views. COMPARISON: None. FINDINGS: Complete right femoral neck transection is noted. Left-sided hip degenerative changes RAD/Hip 2-3 Views with Pelvis IMPRESSION: Right femoral neck transection Electronically Signed: Max Rodriguez DO at 17:47 EDT Tel , Service support , CC: No Primary Care Physician; John Ayoub MD Tennis Ball Cover Cementer: Signed 12 LEAD ELECTROCARDIOGRAM Observed: 11/22/2017 Status: F Source: HAIR 1:52 PM [facility] REPOSITORY [facility] Cardiovascular Services [address] [place] [address] 12 Lead EKG 11/19/17 0800 MR#: [id number] Acct: [id number] Name: JESSICA HAYDEN Rep #: [id number] : 1935 82 From: Tyson Oviedo MD Attending Dr: Status: DEP ER Ordering Dr: Yahaira Robbins MD Date: 11/19/17 Location: ED Sex: F C Admitted: Test Reason : NAUSEA Blood Pressure : / mmHG Vent. Rate : 069 BPM Atrial Rate : 069 BPM P-R Int : 158 ms QRS Dur : 070 ms QT Int : 422 ms P-R-T Axes : 017 057 066 degrees QTc Int : 452 ms Normal sinus rhythm Normal ECG Reconfirmed by TYSON OVIEDO MD ([id number]), assistant editor SANTIAGO CUTLER ([id number]) on 11/22/2017 1:51:34 PM Referred By: RADHA Confirmed By:TYSON OVIEDO MD 11/22/17 1351 Date Tyson Oviedo MD CC: Carole Velasquez MD; Yahaira Robbins MD Signed EMERGENCY DEPARTMENT Observed: 11/19/2017 Status: F Source: [place] SUMMARY 4:01 PM [facility] REPOSITORY [facility] Medical Records Department [address] [place] [address] Emergency Department Summary 11/19/17 0759 MR#: [id number] Acct: [id number] Name: JESSICA HAYDEN Rep #: [id number] : 1935 82 From: Yahaira Robbins MD PCP: Carole Velasquez MD Status: DEP ER - ER Visit Summary Date of Service: 11/19/17 Chief Complaint: Nausea and vomiting History of Present Illness: The patient is a 82 F who states she woke this morning with nausea. She has not vomited. She denies diarrhea. Patient states she felt well when she went to bed last evening. She feels slightly lightheaded, but denies pain. Past history significant for dementia, reflux disease, vertigo, cerebellar ataxia, hypertension, high cholesterol, and atrial fibrillation. Physical Examination: Vital signs are unremarkable. Patient's lying in bed no acute distress. Head neck examination is normal. Heart is regular rate and rhythm. Lung sounds are clear. Abdomen is soft with active bowel sounds throughout. She has no tenderness on palpation. Lower extremity examination will strong distal pulses with no significant edema. Test Results: EKG is sinus at 69 with no sign of acute ischemia. CBC is significant only for hemoglobin 11.7. Chemistry studies are normal. Urinalysis is normal. Emergency Department Course and Treatment: Was given Zofran and IV fluids. On repeat evaluation she does feel improved. She has been able to get up to the bedside commode without difficulty. At this time she will be discharged home with Zofran. Treatment Plan: [] Disposition: Discharge Impression: Nausea, improved This note was generated with Any.DO dictation software. It may contain incorrect words, spelling, and punctuation that were not noted in review of the chart prior to signing ED Disposition - Plan for ED Patient: Chief Complaint: Nausea/Vomiting Referrals: Carole Velasquez MD [Primary Care Provider] - What to do if you have Problems For any increased pain, shortness of breath, bleeding, nausea or vomiting, chest pain, or any unexpected problems, contact your Primary Care Provider. Call [facility] ([phone]) or report to the closest Emergency Room. Call 911 if necessary. 11/19/17 1601 <Electronically signed by Yahaira Robbins MD> Date Yahaira Robbins MD Cosigner Signature (If Indicated): Date CC: Carole Velasquez MD DISCHARGE INSTRUCTION Observed: 11/19/2017 Status: F Source: [place] 10:50 AM [facility] REPOSITORY [facility] Medical Records Department [address] [place] [address] Discharge Instruction 11/19/17 1049 MR#: [id number] Acct: [id number] Name: JESSICA HAYDEN Rep #: [id number] : 1935 82 From: Yahaira Robbins MD PCP: Carole Velasquez MD Status: REG ER ED Disposition - Plan for ED Patient: Disposition: Home or Assisted Living Chief Complaint: Nausea/Vomiting Instructions: ED Nausea Vomiting Prescriptions: Ondansetron [Zofran Odt] 4 mg PO Q8H PRN PRN #10 tablet PRN Reason: Nausea Referrals: Carole Velasquez MD [Primary Care Provider] - 3-5 Days if not improving What to do if you have Problems For any increased pain, shortness of breath, bleeding, nausea or vomiting, chest pain, or any unexpected problems, contact your Primary Care Provider. Call [facility] ([phone]) or report to the closest Emergency Room. Call 911 if necessary. 11/19/17 1050 <Electronically signed by Yahaira Robbins MD> Date Yahaira Robbins MD Cosigner Signature (If Indicated): Date CC: Carole Velasquez MD URINALYSIS, COMPLETE Collected: 11/19/2017 Status: F Source: [place] 9:30 AM [facility] REPOSITORY Order Comment: Order Date: 11/19/17 How was Urine Obtained? CLEAN CATCH TYPE CODE TESTS RESULT OUT OF RANGE REFERENCE UNITS LAB L400.3000 Yellow COLOR Normal Yellow LAB L400.3050 Clear Normal CLARITY Sl. Cloudy LAB L400.3200 Normal mg/dl Normal GLUCOSE, UR Normal LAB L400.3300 Negative mg/dL Normal BILIRUBIN URINE Negative LAB L400.3400 Negative mg/dl Normal KETONE UR Negative LAB L400.3465 1.002-1.030 Normal SP.GR. DIPSTX 1.010 LAB L400.3550 5.0 - 8.0 pH UR Normal 7.0 LAB L400.3600 Negative mg/dl PROT Normal DIPSTX Negative LAB L400.3700 Normal mg/dl Normal UROBILI Normal LAB L400.3750 Negative Normal NITRITE UR Negative LAB L400.3780 Negative /ul Normal OCCULT BLOOD-UR Negative LAB L400.3800 Negative /ul High LEUK 25 ESTERASE LAB L400.4050 0-5 /hpf WBC Normal 0-5 SEEN LAB L400.4100 0-5 /hpf 0 Normal RBC-UA SEEN LAB L400.4150 5-10 /hpf SQUAM Normal EPI 0-5 SEEN LAB L400.4300 None Seen /hpf 1+ Normal BACTERIA LAB L400.4350 <or=2+ /hpf 0 Normal MUCUS, URINE SEEN Performed By: #### L400.0001 #### [facility] [address] [place], [address] CBC W/DIFF, AUTOMATED Collected: 11/19/2017 Status: F Source: [place] 8:00 AM [facility] REPOSITORY TYPE CODE TESTS RESULT OUT OF RANGE REFERENCE UNITS LAB L100.1000 4.4-11.0 K/mm3 Normal WBC 5.3 LAB L100.1200 4.2-5.4 M/mm3 Low RBC 3.73 LAB L100.1300 12.0-15.0 g/dl Low HGB 11.7 LAB L100.1400 37-47 % Low HCT 36.4 LAB L100.1500 81-99 fL Normal MCV 97.6 LAB L100.1600 27.0-32.0 pg Normal MCH 31.4 LAB L100.1700 32-36 g/gl Normal MCHC 32.1 LAB L100.1810 11.6-14.6 % Normal RDW CV 12.2 LAB L100.1820 35.1-43.9 fl Normal RDW SD 42.1 LAB L100.1900 150-450 K/mm3 Normal PLT 200 LAB L100.2000 6.2-12.0 fl Normal MPV 10.6 LAB L100.2100 47-70 % High NEUT% 73.6 LAB L100.2200 19-41 % Low LY% 16.2 LAB L100.2300 0-10 % Normal MONO% 8.3 LAB L100.2400 0-5 % Normal EO% 1.5 LAB L100.2500 0-1 % Normal BASO% 0.4 LAB L100.2550 0.0-0.9 % Normal IM GRAN % 0.000 Result Comment: IG% - Immature Granulocytes (promyelocytes, myelocytes and metamyelocytes) > 1% indicates that a LEFT SHIFT is Present. LAB L100.2620 2.0-7.7 X10 3/uL Normal Absolute Neut 3.9 LAB L100.2720 0.83-4.51 X10 3/ul Normal Absolute Lymph 0.86 Performed By: #### L100.0100 #### [facility] [address] [place], [place], [id number] BASIC METABOLIC Collected: 11/19/2017 Status: F Source: [place] PROFILE (BMP) 8:00 AM [facility] REPOSITORY TYPE CODE TESTS RESULT OUT OF RANGE REFERENCE UNITS LAB L501.0100 74-106 mg/dL Normal GLU 89 Result Comment: Please note revised GLUCOSE reference range effective 2017. LAB L501.1000 7-18 mg/dL Normal BUN 16 LAB L501.1100 0.55-1.02 mg/dL Normal CREAT,SERUM 0.65 Result Comment: The validity of the calculated GFR AND GFRAA in patients over 70 years has not been determined. Clinical correlation is essential. LAB L501.1110 >60 mL/min Normal EST GFR 93 Result Comment: Non- GFR Calc LAB L501.1115 >60 mL/min Normal EST GFR - AA 113 Result Comment: GFR Calc LAB L501.1255 ml/min Normal Estimated CRCL 29.68 LAB L501.1300 10-20 RATIO High BUN/CRE 24.7 LAB L501.2200 8.5-10 mg/dL Low .1 CA 8.4 LAB L501.5300 136-14 mmol/L Normal 5 NA 140 LAB L501.5600 3.5-5. mmol/L Normal 1 K 3.8 LAB L501.5900 98-107 mmol/L Normal CL 103 LAB L501.6100 21.0-3 mmol/L Normal 2.0 CO2 30.0 LAB L501.6200 5-15 Normal GAP 7 Performed By: #### L500.2500 #### [facility] [address] [facility] [address] [place], [address] PROGRESS Observed: 10/15/2017 Status: COMPLETED Source: [place] 10:15 AM [facility] REPOSITORY HNO ID: [id number] Author: Carole Velasquez Service: (none) Author Type: Physician Type: Progress Notes Filed: 10/15/2017 5:11 PM Note Text: Medicare Yearly Visit Medical B eligibilty date age 65 Date of last exam none in the past year PAST MEDICAL HISTORY Diagnosis Date - Atrial fibrillation (HCC) - Dizziness and giddiness 09/25/2011 - Fracture, rib 07/19/2011 - Hyperlipidemia 09/14/2011 - Osteoporosis 08/10/2011 - PLANTAR Fasciitis 12/14/2005 PAST SURGICAL HISTORY Procedure Laterality Date - COLONOSCOP W/ OR W/O BRSH SPEC 01/22/2013 Colonoscopy - EGD W/O OR W/BRUSH/WASH 01/22/2013 EGD - REMV LENS MATERIAL,PHACOFRAGMT 03/2012 Cataract Extraction - right eye - Dr Radha Villarreal; Seasonal Allergies Medications reviewed: Yes FAMILY HISTORY Problem Relation Age of Onset - Cancer Father - Cancer Mother lung,stomach,bowel - Heart Maternal Uncle enlarged - Hypertension Maternal Uncle - Stroke Maternal Uncle SOCIAL HISTORY: Social History Marital status: Spouse name: Years of education: Number of children: Social History Main Topics Smoking status: Never Smoker Smokeless status: Never Used Alcohol use: No Drug use: No Sexual activity: No Jessica Ma denies regular aerobic exercise. She watches her diet for sodium, low fat and low cholesterol most of the time. List of current specialists seen: None except the director of claims End of Live Planning discussed including patients advanced directive wishes: Yes I am willing to follow Jessica Ma's advanced directives. Depression screen She in the past two weeks denies having felt down, depressed, hopeless or with little interest or pleasure in doing things. Functional Ability/Safety Screen 1. Was the patient's timed Up and Go test unsteady or longer than 30 seconds? No 2. Does the patient need help with the phone, transportation, shopping,preparing meals, housework, laundry, medications or managing money?yes, needs help with transportation 3. Does your home have rugs in the hallway, lack of grab bars in the bathroom, lack of handrails on the stairs or have poor lighting? No Hearing Evaluation: normal PHYSICAL EXAM BP 130/58 (BP Site: Left Arm, BP Position: Sitting, BP Cuff Size: Regular Adult) Pulse 80 Resp 12 Ht 154.9 cm (5' 1) Wt 44 kg (97 lb) SpO2 98% BMI 18.33 kg/m2 Alert and oriented X 3: YES Body mass index is 18.33 kg/(m2). ASSESSMENT/PLAN: 82 year old female The following prevention plan was discussed during the office visit and provided to the patient: - Lipid panel CAROLE VELASQUEZ MD Reason for Visit Patient presents with: Established Patient: medicare wellness Jessica Hayden is a 82 year old female who presents here today for Above Complaints.. Health Maintenance TETANUS HPI Patient does not seem to remember if she takes any medication or not. Does note that she has coughing, on lisinopril, at 5 mgs. Talked to her caregiver who notes that she has a dry hacking cough, and she has some memory issues. cargiver also noted that she makes sure she eats well. And she is made sure she is taking her medication regularly No problem-specific Assessment AND Plan notes found for this encounter. PAST MEDICAL HISTORY Diagnosis Date - Atrial fibrillation (HCC) - Dizziness and giddiness 09/25/2011 - Fracture, rib 07/19/2011 - Hyperlipidemia 09/14/2011 - Osteoporosis 08/10/2011 - PLANTAR Fasciitis 12/14/2005 PAST SURGICAL HISTORY Procedure Laterality Date - COLONOSCOP W/ OR W/O BRSH SPEC 01/22/2013 Colonoscopy - EGD W/O OR W/BRUSH/WASH 01/22/2013 EGD - REMV LENS MATERIAL,PHACOFRAGMT 03/2012 Cataract Extraction - right eye - Dr Garcia FAMILY HISTORY Problem Relation Age of Onset - Cancer Father - Cancer Mother lung,stomach,bowel - Heart Maternal Uncle enlarged - Hypertension Maternal Uncle - Stroke Maternal Uncle Social History Substance Use Topics - Smoking status: Never Smoker - Smokeless tobacco: Never Used - Alcohol use No Past medical history, appointments, medications, allergies reviewed. Pertinent Lab/Diagnostic Studies are reviewed and discussed today Current Outpatient Prescriptions: - lisinopril (ZESTRIL, PRINIVIL) 5 mg tablet - atorvastatin (LIPITOR) 20 mg tablet - alendronate (FOSAMAX) 70 mg tablet - calcium, elemental, tab - Krpswhcrsbvqm-Vs-Irei-Minerals (MULTIPLE VITAMIN, WOMENS) tab - Aspirin 81 mg Tab - ranitidine (ZANTAC) 150 mg tablet - cholecalciferol, Vitamin D3, (VITAMIN D3) 50,000 unit cap capsule - benzonatate (TESSALON PERLE) 100 mg capsule - acetaminophen (TYLENOL EXTRA STRENGTH) 500 mg tablet Review of Systems CONSTITUTIONAL: No fevers, chills night sweats, unintended weight loss CARDIOVASCULAR: No chest pain, dyspnea, palpitations, orthopnea, PND, ankle edema. PULM: No dyspnea, unexplained cough. GI: No dysphagia/odynophagia, problematic reflux, constipation, diarrhea, changes in stool habits, hematochezia, melena. : No new urinary complaints, including dysuria, gross hematuria or pyuria. NEURO: No new balance problems, peripheral weakness/paresthesias or numbness of concern. Physical Exam BP 130/58 (BP Site: Left Arm, BP Position: Sitting, BP Cuff Size: Regular Adult) Pulse 80 Resp 12 Ht 154.9 cm (5' 1) Wt 44 kg (97 lb) SpO2 98% BMI 18.33 kg/m2 General appearance: Well appearing, alert, in no acute distress, well nourished. Skin: Skin color, texture, turgor normal, no suspicious rashes or lesions Head: Normocephalic, no masses, lesions, tenderness or abnormalities Eyes: Anicteric sclera. Pupils are equally round and reactive to light. Extraocular movements are intact. Lungs: Lungs clear to auscultation. No wheezing, rhonchi, rales Heart: RRR without murmur, gallop, or rubs. ASSESSMENT/PLAN: 1. Medicare annual wellness visit, subsequent - ICD9: V70.0, ICD10: Z00.00 (primary diagnosis) - Encouraged monthly Breast Self Exam - Follow up for annual exam in one year. 2. Vitamin D deficiency - ICD9: 268.9, ICD10: E55.9 - CHOLECALCIFEROL (VITAMIN D3) 50,000 UNIT CAPSULE 3. Memory deficits - ICD9: 780.93, ICD10: R41.3 The patient seems to be forgetful with immediate results else he is doing well. 4. Essential hypertension - ICD9: 401.9, ICD10: I10 - good control - Recommended regular aerobic exercise. - Recommend home blood pressure monitoring, to bring results in on next visit - Goal of BP <130/80 - VALSARTAN 40 MG TABLET 5. Cough - ICD9: 786.2, ICD10: R05 Asked her to take the valsartan instead of the lisinopril CAROLE VELASQUEZ MD CNOV Observed: 10/15/2017 Status: COMPLETED Source: [place] 9:20 AM [facility] REPOSITORY Office Visit (INTMWS) [facility],JESSICA Monreal ([id number]) 1935 F Date Time Provider Department 10/15/17 9:20 AM CAROLE VELASQUEZ INTMWS During your visit today, we recorded the following information about you: Pulse Respiration Blood pressure Weight 80/minute 12/minute 130/58 44 kg Height 1.549 m CAROLE VELASQUEZ MD 10/15/2017 5:11 PM Signed Medicare Yearly Visit Medical B eligibilty date age 65 Date of last exam none in the past year PAST MEDICAL HISTORY Diagnosis Date - Atrial fibrillation (HCC) - Dizziness and giddiness 09/25/2011 - Fracture, rib 07/19/2011 - Hyperlipidemia 09/14/2011 - Osteoporosis 08/10/2011 - PLANTAR Fasciitis 12/14/2005 PAST SURGICAL HISTORY Procedure Laterality Date - COLONOSCOP W/ OR W/O BRSH SPEC 01/22/2013 Colonoscopy - EGD W/O OR W/BRUSH/WASH 01/22/2013 EGD - REMV LENS MATERIAL,PHACOFRAGMT 03/2012 Cataract Extraction - right eye - Dr Radha Villarreal; Seasonal Allergies Medications reviewed: Yes FAMILY HISTORY Problem Relation Age of Onset - Cancer Father - Cancer Mother lung,stomach,bowel - Heart Maternal Uncle enlarged - Hypertension Maternal Uncle - Stroke Maternal Uncle SOCIAL HISTORY: Social History Marital status: Spouse name: Years of education: Number of children: Social History Main Topics Smoking status: Never Smoker Smokeless status: Never Used Alcohol use: No Drug use: No Sexual activity: No Jessica Ma denies regular aerobic exercise. She watches her diet for sodium, low fat and low cholesterol most of the time. List of current specialists seen: None except the director of claims End of Live Planning discussed including patients advanced directive wishes: Yes I am willing to follow [place]'s advanced directives. Depression screen She in the past two weeks denies having felt down, depressed, hopeless or with little interest or pleasure in doing things. Functional Ability/Safety Screen 1. Was the patient's timed Up and Go test unsteady or longer than 30 seconds? No 2. Does the patient need help with the phone, transportation, shopping,preparing meals, housework, laundry, medications or managing money?yes, needs help with transportation 3. Does your home have rugs in the hallway, lack of grab bars in the bathroom, lack of handrails on the stairs or have poor lighting? No Hearing Evaluation: normal PHYSICAL EXAM BP 130/58 (BP Site: Left Arm, BP Position: Sitting, BP Cuff Size: Regular Adult) Pulse 80 Resp 12 Ht 154.9 cm (5' 1ANDquot;) Wt 44 kg (97 lb) SpO2 98% BMI 18.33 kg/m2 Alert and oriented X 3: YES Body mass index is 18.33 kg/(m2). ASSESSMENT/PLAN: 82 year old female The following prevention plan was discussed during the office visit and provided to the patient: - Lipid panel CAROLE VELASQUEZ MD Reason for Visit Patient presents with: Established Patient: medicare wellness Jessica Hayden is a 82 year old female who presents here today for Above Complaints.. Health Maintenance TETANUS HPI Patient does not seem to remember if she takes any medication or not. Does note that she has coughing, on lisinopril, at 5 mgs. Talked to her caregiver who notes that she has a dry hacking cough, and she has some memory issues. cargiver also noted that she makes sure she eats well. And she is made sure she is taking her medication regularly No problem-specific Assessment ANDamp; Plan notes found for this encounter. PAST MEDICAL HISTORY Diagnosis Date - Atrial fibrillation (HCC) - Dizziness and giddiness 09/25/2011 - Fracture, rib 07/19/2011 - Hyperlipidemia 09/14/2011 - Osteoporosis 08/10/2011 - PLANTAR Fasciitis 12/14/2005 PAST SURGICAL HISTORY Procedure Laterality Date - COLONOSCOP W/ OR W/O BRSH SPEC 01/22/2013 Colonoscopy - EGD W/O OR W/BRUSH/WASH 01/22/2013 EGD - REMV LENS MATERIAL,PHACOFRAGMT 03/2012 Cataract Extraction - right eye - Dr Garcia FAMILY HISTORY Problem Relation Age of Onset - Cancer Father - Cancer Mother lung,stomach,bowel - Heart Maternal Uncle enlarged - Hypertension Maternal Uncle - Stroke Maternal Uncle Social History Substance Use Topics - Smoking status: Never Smoker - Smokeless tobacco: Never Used - Alcohol use No Past medical history, appointments, medications, allergies reviewed. Pertinent Lab/Diagnostic Studies are reviewed and discussed today Current Outpatient Prescriptions: - lisinopril (ZESTRIL, PRINIVIL) 5 mg tablet - atorvastatin (LIPITOR) 20 mg tablet - alendronate (FOSAMAX) 70 mg tablet - calcium, elemental, tab - Aem[place]-Pk-Shzu-Minerals (MULTIPLE VITAMIN, WOMENS) tab - Aspirin 81 mg Tab - ranitidine (ZANTAC) 150 mg tablet - cholecalciferol, Vitamin D3, (VITAMIN D3) 50,000 unit cap capsule - benzonatate (TESSALON PERLE) 100 mg capsule - acetaminophen (TYLENOL EXTRA STRENGTH) 500 mg tablet Review of Systems CONSTITUTIONAL: No fevers, chills night sweats, unintended weight loss CARDIOVASCULAR: No chest pain, dyspnea, palpitations, orthopnea, PND, ankle edema. PULM: No dyspnea, unexplained cough. GI: No dysphagia/odynophagia, problematic reflux, constipation, diarrhea, changes in stool habits, hematochezia, melena. : No new urinary complaints, including dysuria, gross hematuria or pyuria. NEURO: No new balance problems, peripheral weakness/paresthesias or numbness of concern. Physical Exam BP 130/58 (BP Site: Left Arm, BP Position: Sitting, BP Cuff Size: Regular Adult) Pulse 80 Resp 12 Ht 154.9 cm (5' 1ANDquot;) Wt 44 kg (97 lb) SpO2 98% BMI 18.33 kg/m2 General appearance: Well appearing, alert, in no acute distress, well nourished. Skin: Skin color, texture, turgor normal, no suspicious rashes or lesions Head: Normocephalic, no masses, lesions, tenderness or abnormalities Eyes: Anicteric sclera. Pupils are equally round and reactive to light. Extraocular movements are intact. Lungs: Lungs clear to auscultation. No wheezing, rhonchi, rales Heart: RRR without murmur, gallop, or rubs. ASSESSMENT/PLAN: 1. Medicare annual wellness visit, subsequent - ICD9: V70.0, ICD10: Z00.00 (primary diagnosis) - Encouraged monthly Breast Self Exam - Follow up for annual exam in one year. 2. Vitamin D deficiency - ICD9: 268.9, ICD10: E55.9 - CHOLECALCIFEROL (VITAMIN D3) 50,000 UNIT CAPSULE 3. Memory deficits - ICD9: 780.93, ICD10: R41.3 The patient seems to be forgetful with immediate results else he is doing well. 4. Essential hypertension - ICD9: 401.9, ICD10: I10 - good control - Recommended regular aerobic exercise. - Recommend home blood pressure monitoring, to bring results in on next visit - Goal of BP ANDlt;130/80 - VALSARTAN 40 MG TABLET 5. Cough - ICD9: 786.2, ICD10: R05 Asked her to take the valsartan instead of the lisinopril CAROLE VELASQUEZ MD Referring Provider: CAROLE VELASQUEZ [[id number]] Allergies As of Date: 10/15/2017 Noted Allergy Reaction MECLIZINE 09/14/2011 14 - Other: See Comments SEASONAL ALLERGIES 02/03/2014 14 - Other: See Comments Comments: pollen Date Reviewed: 10/15/2017 Reviewed by: Cas Mckeon LPN - Fully Assessed Reason for Visit: Established Patient [175] Cmt: medicare wellness Primary Visit Diagnosis:Medicare annual wellness visit, subsequent [Z00.00] Other Visit Diagnoses:Vitamin D deficiency [E55.9] Memory deficits [R41.3] Essential hypertension [I10] Cough [R05] Order(s):cholecalciferol, Vitamin D3, (VITAMIN D3) 50,000 unit cap capsuleTake 1 capsule by mouth twice a week. (ONE CAPSULE) FOR VITAMIN D DEFICIENCYDisp: 24 capsuleRfl: 1 valsartan (DIOVAN) 40 mg tabletTake 1 tablet by mouth once daily.Disp: 30 tabletRfl: 5 Prescriptions as of 10/15/2017 Sig: ATORVASTATIN 20 MG TABLET TAKE 1 TABLET EVERY DAY for c* ALENDRONATE 70 MG TABLET Take 1 tablet by mouth once e* CALCIUM 500 MG TABLET Take 1 tablet by mouth once d* LTEYXXXCQOPT-KZ-WXUY-MINERALS* Take 1 tablet by mouth once d* ASPIRIN 81 MG TABLET Take 81 mg by mouth once олег* CHOLECALCIFEROL (VITAMIN D3) * Take 1 capsule by mouth twice* VALSARTAN 40 MG TABLET Take 1 tablet by mouth once d* RANITIDINE 150 MG TABLET TAKE 1 TABLET TWICE DAILY for* BENZONATATE 100 MG CAPSULE Take 1 capsule by mouth three* ACETAMINOPHEN 500 MG TABLET Take 500 mg by mouth every 6 * Problem List As Of Date 10/15/2017 Noted Resolved PLANTAR Fasciitis [M72.2] INVALID FOR*01/15/2017 Sprain of foot, unspecified site [S93.609A] INVALID FOR*10/29/2014 Pain in limb [M79.609] INVALID FOR*10/29/2014 Fracture, rib [S22.39XA] INVALID FOR*10/29/2014 Osteoporosis [M81.0] INVALID FOR* More... Hyperlipidemia [E78.5] INVALID FOR* More... Dizziness and giddiness [R42] INVALID FOR* More... Small vessel disease [I99.9] INVALID FOR* More... PVC (premature ventricular contraction) [I49.3] INVALID FOR* More... Hypertension [I10] INVALID FOR* More... Weight loss [R63.4] INVALID FOR* More... Memory deficits [R41.3] INVALID FOR* Prescriptions ordered this encounter Disp Refills Start End CHOLECALCIFEROL (VITAMIN D3) 50,000 * 24 c* 1 10/15/2017 Route: ORAL Sig: Take 1 capsule by mouth twice a week. (ONE CAPSULE) FOR VITAMIN D DEFICIENCY VALSARTAN 40 MG TABLET 30 t* 5 10/15/2017 Route: ORAL Sig: Take 1 tablet by mouth once daily. Medications Discontinued During This Encounter lisinopril (ZESTRIL, PRINIVIL) 5 mg * 90 t* 3 09/21/2017 10/15/2017 Sig: TAKE 1 TABLET BY MOUTH EVERY DAY Disc: Reason for discontinue is not on file. cholecalciferol, Vitamin D3, (VITAMI* 24 c* 1 03/01/2017 10/15/2017 Route: ORAL Sig: Take 1 capsule by mouth twice a week. (ONE CAPSULE) FOR VITAMIN D DEFICIENCY Disc: Reason for discontinue is not on file. Encounter Status:Closed by CAROLE VELASQUEZ MD on 10/15/17 ALLERGIES ALLERGIES DATE TYPE / CODE NAME / CODE REACTION SEVERITY SOURCE 04/24/2018 Drug No Known Unknown [facility] Allergy/416 Allergies/[id number] Hospital [id number](SNOM 0388(RXNORM) Repository ED CT) 02/03/2014 Environ/420 SEASONAL OTHER: SEE [facility] [id number](SNOM ALLERGIES Other [place] ED CT) Repository 09/14/2011 DRUG MECLIZINE OTHER: SEE [facility] INGREDI/419 Other [place] 920761(SNOM Repository ED CT) NG/[id number] MECLIZINE [facility](SNOMED [facility] CT) Repository NG/[id number] SEASONAL [facility](SNOMED ALLERGIES Health System CT) Repository ENCOUNTERS ENCOUNTERS ADMIT/DISCHARGE ACCOUNT NUMBER ADMITTING ENCOUNTER LOCATION SOURCE CLASS 09/02/2018 [id number] Ambulatory [facility] ding:HPRAD Repository 09/02/2018/09/02/19 [id number] Ambulatory BMSBuilding: [place] 19 [facility] Repository 07/02/2018 [id number] Ambulatory BMSBuilding: [place] [facility] Repository 07/02/2018 [id number] Ambulatory [facility] ding:HPRAD Repository 07/02/2018/07/02/20 [id number] Ambulatory BMSBuilding: [place] 18 BMS.[facility] Repository 06/19/2018 [id number] Ambulatory BMSBuilding: [place] BMS.[facility] Repository 04/24/2018/04/30/20 [id number] White, Coni Ambulatory [address] ding:[id number] Repository : UF394Pke: 1 04/24/2018 [id number] White, Coni Ambulatory BMSBuilding: [place] BMS.[facility] license of [facility] Repository 04/24/2018 [id number] White, Coni Ambulatory BMSBuilding: [place] BMS.[facility] license of [facility] Repository 04/24/2018 [id number] White, Coni Ambulatory BMSBuilding: [place] BMS.On license of [facility] Repository 04/24/2018 [id number] White, Coni Ambulatory BMSBuilding: [place] BMS.[facility] license of [facility] Repository 04/24/2018 [id number] White, Coni Ambulatory BMSBuilding: [place] BMS.[facility] license of [facility] Repository 04/24/2018 [id number] White, Coni Ambulatory BMSBuilding: [place] BMS.[facility] license of [facility] Repository 04/24/2018 [id number] White, Coni Ambulatory BMSBuilding: [place] BMS.[facility] license of [facility] Repository 04/23/2018/06/05/20 [id number] Ambulatory [address] ding:CCN Repository 04/21/2018/04/23/20 [id number] [facility] Inpatient [place] [address] EHAB Encounter [facility] Other [place] Repository 04/21/2018/04/23/20 [id number] [facility], Inpatient [address] EHAB Encounter [facility] MEDICAL Repository CENTERBuildi nRoom: 8107Bed: 04/21/2018/04/21/20 [id number] Emergency [address] ding:ED Repository 04/17/2018 [id number] Ambulatory [facility] ding:CVS Repository 04/16/2018/04/16/20 [id number] Emergency [address] ding:ED Repository 04/16/2018/04/17/20 [id number] Ambulatory [address] Repository 04/09/2018/04/11/20 [id number] White, Coni Inpatient [address] ding:[id number] Repository : SS501Ypz: 1 04/09/2018 [id number] White, Coni Ambulatory BMSBuilding: [place] BMS.[facility] license of [facility] Repository 04/09/2018 [id number] White, Coni Ambulatory BMSBuilding: [place] BMS.[facility] license of [facility] Repository 04/09/2018 [id number] White, Coni Ambulatory BMSBuilding: [place] BMS.[facility] license of [facility] Repository 04/02/2018/04/02/20 [id number] Ambulatory BMSBuilding: [place] 18 BMS.[facility] Repository 03/27/2018/03/27/20 [id number] Ambulatory BMSBuilding: [place] 18 BMS.[facility] Repository 03/26/2018 [id number] Ambulatory [facility] ding:OLS.AVE Repository D 03/25/2018 [id number] Ambulatory [facility] ding:[place] Repository D 03/10/2018 [id number] Ambulatory [facility] ding:OLS.[place] Repository D 03/07/2018 [id number] Ambulatory [facility] ding:HPRAD Repository 03/07/2018/03/07/20 [id number] Ambulatory BMSBuilding: [place] 18 BMS.[facility] Repository 02/21/2018/02/28/20 [id number] Ambulatory BMSBuilding: [place] 18 [facility] Repository 02/20/2018 [id number] Ambulatory BMSBuilding: [place] BMS.[facility] Repository 02/19/2018/02/28/20 [id number] [facility], Inpatient [place] [facility] ding:[id number] Repository : FW437Yud: 1 02/19/2018 [id number] Derek, Ambulatory BMSBuilding: [place] BMS.[facility] license of [facility] Repository 02/19/2018 [id number] Derek, Ambulatory BMSBuilding: [place] BMS.[facility] Repository 02/19/2018 [id number] Derek, Ambulatory BMSBuilding: [place] BMS.[facility] Repository 02/19/2018 [id number] Derek, Ambulatory BMSBuilding: [place] BMS.[facility] license of [facility] Repository 02/19/2018 [id number] Derek, Ambulatory BMSBuilding: [place] BMS.[facility] Repository 02/19/2018 [id number] Derek, Ambulatory BMSBuilding: [place] BMS.On license of [facility] Repository 02/19/2018 [id number] Derek, Ambulatory BMSBuilding: [place] BMS.On license of [facility] Repository 02/19/2018 [id number] Derek, Ambulatory BMSBuilding: [place] BMS.On license of [facility] Repository 02/19/2018 [id number] Derek, Ambulatory BMSBuilding: [place] BMS.On license of [facility] Repository 02/19/2018/02/28/20 [id number] Ambulatory BMSBuilding: [place] [facility] Repository 02/19/2018/02/28/20 [id number] Ambulatory BMSBuilding: [place] [facility] Repository 02/18/2018 [id number] Ambulatory BMSBuilding: [place] BMS.[facility] Repository 11/19/2017/11/20/19 [id number] Emergency [address] ding:ED Repository 10/15/2017/11/20/19 [id number] Ambulatory [address] Repository PAYERS PAYERS ENCOUNTER GUARANTOR PAYER SUBSCRIBER SOURCE 09/02/2018 JESSICA Monreal Primary JESSICA Monreal Hair [id number] [place] Insurance:[facility] [place]SDOB[place] [facility] [id number] Hospital [address]Mtr: (330) Number: Repository [phone] () [id number] Date:4464-06-96BT [address] [address]WZ: 09/02/2018 Secondary NOT GIVENUNK Hair Insurance:SELF PAY [facility] Number: Effective Repository Date:2018-09-02 09/02/2018 JESSICA Monreal Primary JESSICA Monreal [place] [id number] [place] Insurance:[facility] [place]SDOB[place] [facility] [id number] Hospital [address]Gsh: (330) Number: Repository [phone] () [id number] Date:9572-07-06UF[address] [address]ES: 09/02/2018 Secondary NOT GIVENUNK [place] Insurance:SELF PAY [facility] Number: Effective Repository Date:2018-09-02 07/02/2018 JESSICA oMnreal Primary JESSICA [place] [id number] [place] Insurance:[facility] [place] [facility] [id number] [id number]: (330) Number: Repository [phone] () [id number] Date:9315-17-38JA [address] [address]MV: 07/02/2018 Secondary NOT GIVENUNK Hair Insurance:SELF PAY [facility] Number: Effective Repository Date:2018-07-02 07/02/2018 JESSICA Monreal Primary JESSICA Monreal [place] [id number] [place] Insurance:[facility] [place]SDOB[place] [facility] [id number] Hospital [address]Djl: (330) Number: Repository [phone] () [id number] Date:0176-93-01FZ [address] [address]QI: 07/02/2018 Secondary NOT GIVENUNK [place] Insurance:SELF PAY [facility] Number: Effective Repository Date:2018-07-02 07/02/2018 JESSICA Monreal Primary JESSICA Monreal Hair [id number] [place] Insurance:[facility] FUDOB: [place] [facility] [id number] Hospital [address]Dmq: (330) Number: Repository [phone] () [id number] Date:6280-37-14NG [address] [address]KB: 07/02/2018 Secondary NOT GIVENUNK [place] Insurance:SELF PAY [facility] Number: Effective Repository Date:2018-07-02 06/19/2018 JESSICA Monreal Primary JESSICA Monreal [place] [id number] [place] Insurance:[facility]: [place] [facility] [id number] Hospital [address]Wxd: (330) Number: Repository [phone] () [id number] Date:4598-88-51KD [address] [address]OL: 06/19/2018 Secondary NOT GIVENUNK [place] Insurance:SELF PAY [facility] Number: Effective Repository Date:2018-06-19 04/24/2018 JESSICA Monreal Primary JESSICA Monreal [place] [id number] [place] Insurance:[facility] FUHSDOB: [place] [facility] [id number] Hospital [address]Jnl: (330) Number: Repository [phone] () [id number] Date:7196-39-32WK[address] [address]XH: 04/24/2018 Secondary NOT GIVENUNK Hair Insurance:SELF PAY [facility] Number: Effective Repository Date:2018-04-24 04/24/2018 JESSICA Monreal Primary JESSICA Monreal [place] [id number] [place] Insurance:[facility] FUDOB: [place] [facility] [id number] Hospital [address]Har: (330) Number: Repository [phone] () [id number] Date:6835-69-14PR[address] [address]BP: 04/24/2018 Secondary NOT GIVENUNK [place] Insurance:SELF PAY [facility] Number: Effective Repository Date:2018-04-24 04/24/2018 JESSICA Monreal Primary JESSICA Monreal [place] [id number] [place] Insurance:[facility] FUDOB: [place] [facility] [id number] Hospital [address]Szj: (330) Number: Repository [phone] () [id number] Date:0655-71-31EK [address] [address]AD: 04/24/2018 Secondary NOT GIVENUNK [place] Insurance:SELF PAY [facility] Number: Effective Repository Date:2018-04-24 04/24/2018 JESSICA Monreal Primary JESSICA Monreal [place] [id number] [place] Insurance:[facility] FUHSDOB: [place] [facility] [id number] Hospital [address]Ahx: (330) Number: Repository [phone] () [id number] Date:0113-64-92AP [address] [address]GH: 04/24/2018 Secondary NOT GIVENUNK Hair Insurance:SELF PAY [facility] Number: Effective Repository Date:2018-04-24 04/24/2018 JESSICA Monreal Primary JESSICA Monreal [place] [id number] [place] Insurance:[facility] FUHSDOB: [place] [facility] [id number] Hospital [address]Atn: (330) Number: Repository [phone] () [id number] Date:2345-79-14UR [address] [address]MQ: 04/24/2018 Secondary NOT GIVENUNK [place] Insurance:SELF PAY [facility] Number: Effective Repository Date:2018-04-24 04/24/2018 JESSICA Monreal Primary JESSICA Monreal Hair [id number] [place] Insurance:[facility] FUDOB: [place] [facility] [id number] Hospital [address]Nat: (330) Number: Repository [phone] () [id number] Date:5310-18-40LD [address] [address]BI: 04/24/2018 Secondary NOT GIVENUNK [place] Insurance:SELF PAY [facility] Number: Effective Repository Date:2018-04-24 04/24/2018 JESSICA Monreal Primary JESSICA Monreal Hair [id number] [place] Insurance:[facility] FUHSDOB: [place] [facility] [id number] Hospital [address]Cki: (330) Number: Repository [phone] () [id number] Date:7553-67-46EO [address] [address]VB: 04/24/2018 Secondary NOT GIVENUNK Hair Insurance:SELF PAY [facility] Number: Effective Repository Date:2018-04-24 04/24/2018 JESSICA Monreal Primary JESSICA Monreal Hair [id number] [place] Insurance:[facility] FUHSDOB: [place] [facility] [id number] Hospital [address]Adr: (330) Number: Repository [phone] () [id number] Date:8983-75-43GP[address] [address]PZ: 04/24/2018 Secondary NOT GIVENUNK [place] Insurance:SELF PAY [facility] Number: Effective Repository Date:2018-04-24 04/23/2018 JESSICA Monreal Primary JESSICA Monreal Hair [id number] [place] Insurance:[facility] FUHSDOB: [place] [facility] [id number] Hospital [address]Vqy: (330) Number: Repository [phone] () [id number] Date:3216-61-97VR[address] [address]AX: 04/23/2018 Secondary NOT GIVENUNK [place] Insurance:SELF PAY [facility] Number: Effective Repository Date:2018-04-23 04/21/2018 JESSICA Monreal Primary Insurance:[facility] JESSICA Monreal [facility] FUHSDOB: DUAL COMPLETE O FUHSDOB: [facility] Number: [id number] [id number] Date: [address]Pdw: () 04/21/2018 JESSICA Monreal Primary JESSICA Monreal [place] [id number] [place] Insurance:[facility] [place]SDOB: [place] [facility] [id number] Hospital [address]Hoh: 330) Number: Repository [phone] () [id number] Date:4978-63-11TM[address] [address]WB: 04/21/2018 Secondary NOT GIVENUNK [place] Insurance:SELF PAY [facility] Number: Effective Repository Date:2018-04-21 04/17/2018 JESSICA Monreal Primary NOT GIVENUNK [place] [id number] [place] Insurance:SELF PA[place] [facility] [address]Hes: (330) Number: Effective Repository [phone] () Date:2018-04-01 04/16/2018 JESSICA Monreal Primary JESSICA Monreal [place] [id number] [place] Insurance:[facility] FUHSDOB: [place] [facility] [id number] Hospital [address]Azt: (330) Number: Repository [phone] () [id number] Date:2467-43-22WN [address] [address]JV: 04/16/2018 Secondary NOT GIVENUNK Hair Insurance:SELF PAY [facility] Number: Effective Repository Date:2018-04-16 04/09/2018 JESSICA Monreal Primary JESSICA Monreal Hair [id number] [place] Insurance:[facility] FUHSDOB: [place] [facility] [id number] Hospital [address]Gcw: (330) Number: Repository [phone] () [id number] Date:9700-83-15EZ [address] [address]AY: 04/09/2018 Secondary NOT GIVENUNK [place] Insurance:SELF PAY [facility] Number: Effective Repository Date:2018-04-09 04/09/2018 JESSICA Monreal Primary JESSICA Monreal [place] [id number] [place] Insurance:[facility] [place]SDOB: [place] [facility] [id number] Hospital [address]Qzl: (330) Number: Repository [phone] () [id number] Date:2634-74-45KO [address] [address]PS: 04/09/2018 Secondary NOT GIVENUNK Hair Insurance:SELF PAY [facility] Number: Effective Repository Date:2018-04-09 04/09/2018 JESSICA Monreal Primary JESSICA Monreal Hair [id number] [place] Insurance:[facility] FUHSDOB: [place] [facility] [id number] Hospital [address]Lri: (330) Number: Repository [phone] () [id number] Date:9800-63-53ZC [address] [address]QY: 04/09/2018 Secondary NOT GIVENUNK Hair Insurance:SELF PAY [facility] Number: Effective Repository Date:2018-04-09 04/09/2018 JESSICA Monreal Primary JESSICA Monreal Hair [id number] [place] Insurance:[facility] FUDOB: [place] [facility] [id number] Hospital 32[address]Fdi: (330) Number: Repository [phone] () [id number] Date:5954-93-50YY [address] [address]FA: 04/09/2018 Secondary NOT GIVENUNK Hair Insurance:SELF PAY [facility] Number: Effective Repository Date:2018-04-09 04/02/2018 JESSICA Monreal Primary JESSICA Monreal Hiar [id number] [place] Insurance:[facility] F[place]SDOB: [place] [facility] [id number] Hospital [address]Igg: (330) Number: Repository [phone] () [id number] Date:8556-83-35QQ [address] [address]JY: 04/02/2018 Secondary NOT GIVENUNK Hair Insurance:SELF PAY [facility] Number: Effective Repository Date:2018-03-13 03/27/2018 JESSICA Monreal Primary JESSICA Monreal [place] [id number] [place] Insurance:[facility] [place]SDOB: [place] [facility] [id number] Hospital [address]Xkf: (330) Number: Repository [phone] () [id number] Date:0339-04-29VX [address] [address]PJ: 03/27/2018 Secondary NOT GIVENUNK Hair Insurance:SELF PAY [facility] Number: Effective Repository Date:2018-03-27 03/26/2018 JESSICA Monreal Primary JESSICA [place] [id number] [place] Insurance:[facility] [place]SDOB: [place] [facility] [id number] Hospital [address]Lsb: (330) Number: Repository [phone] () [id number] Date:5484-90-08ZO [address] [address]KN: 03/26/2018 Secondary NOT GIVENUNK [place] Insurance:SELF PAY [facility] Number: Effective Repository Date:2018-03-26 03/25/2018 JESSICA Monreal Primary JESSICA Monreal Hair [id number] [place] Insurance:[facility] [place]SDOB: [place] [facility] [id number] Hospital [address]38[address]Rpp: (330) Number: Repository [phone] () [id number] Date:1649-23-60CN[address] [address]RX: 03/25/2018 Secondary NOT GIVENUNK Hair Insurance:SELF PAY [facility] Number: Effective Repository Date:2018-03-25 03/10/2018 JESSICA Monreal [id number] Primary JESSIAC Monreal [place] Insurance:[facility] [place] [facility] [id number] Hospital [address]Mba: (330) Number: Repository [phone] () [id number] Date:1069-63-92UW [address] [address]YM: 03/10/2018 Secondary NOT GIVENUNK [place] Insurance:SELF PAY [facility] Number: Effective Repository Date:2018-03-10 03/07/2018 JESSICA Monreal [id number] Primary JESSICA Monreal FUHSDOB: [place] Insurance:[facility] [id number] [facility] [place] [address]Tel: (330) Number: Repository [phone] () [id number] Date:3905-13-96KZ [address] [address]JH: 03/07/2018 Secondary NOT GIVENUNK [place] Insurance:SELF PAY [facility] Number: Effective Repository Date:2018-03-07 03/07/2018 JESSICA Monreal [id number] Primary JESSICA Monreal FUHSDOB: [place] IRTCH[place] Insurance:[facility] [id number] [facility] [place] [address]Tel: (330) Number: Repository [phone] () [id number] Date:8613-51-72XY [address] [address]NV: 03/07/2018 Secondary NOT GIVENUNK [place] Insurance:SELF PAY [facility] Number: Effective Repository Date:2018-03-07 02/21/2018 JESSICA Monreal [id number] Primary JESSICA Monreal FUHSDOB: [place] Insurance:[facility] [id number] [facility] [place] [address]Tel: (330) Number: Repository [phone] () [id number] Date:0319-21-07KL [address] [address]SJ: 02/21/2018 Secondary NOT GIVENUNK [place] Insurance:SELF PAY [facility] Number: Effective Repository Date:2018-02-21 02/20/2018 JESSICA Monreal Primary JESSICA Monreal Hair [id number] [place] Insurance:MEDICAIDPol FUHSDOB: [facility] [place] Number: [id number] Hospital 11[address]Sky: (121) [id number] Repository [phone] () Date:2017-08-01 02/20/2018 Secondary JESSICA Monreal Hair [facility] FUHSDOB: Community MEDICAREPolicy [id number] Hospital Number: Repository [id number] Date:1464-80-98[address] [address]BS: 02/20/2018 Tertiary NOT GIVENUNK [place] Insurance:SELF PAY [facility] Number: Effective Repository Date:2017-08-01 02/19/2018 JESSICA [id number] Primary JESSICA Monreal FUHSDOB: [place] Insurance:[facility] [id number] [facility] [place] [address]Tel: (330) Number: Repository [phone] () [id number] Date:1070-46-22UU [address] [address]NV: 02/19/2018 Secondary NOT GIVENUNK [place] Insurance:SELF PAY [facility] Number: Effective Repository Date:2018-02-19 02/19/2018 JESSICA monreal [id number] Primary JESSICA monreal FUHSDOB: [place] Insurance:[facility] [id number] [facility] [place] [address]Tel: (330) Number: Repository [phone] () [id number] Date:6139-30-76VF [address] [address]GG: 02/19/2018 Secondary NOT GIVENUNK [place] Insurance:SELF PAY [facility] Number: Effective Repository Date:2018-02-19 02/19/2018 JESSICA monreal [id number] Primary JESSICA monreal FUHSDOB: [place] Insurance:[facility] [id number] [facility] [place] [address]Tel: (330) Number: Repository [phone] () [id number] Date:7664-37-83NB [address] [address]MR: 02/19/2018 Secondary NOT GIVENUNK [place] Insurance:SELF PAY [facility] Number: Effective Repository Date:2018-02-19 02/19/2018 JESSICA Monreal [id number] Primary JESSICA Monreal FUHSDOB: [place] Insurance:[facility] [id number] [place] [facility] [address]Qun: (330) Number: Repository [phone] () [id number] Date:9245-18-06AQ [address] [address]XT: 02/19/2018 Secondary NOT GIVENUNK [place] Insurance:SELF PAY [facility] Number: Effective Repository Date:2018-02-19 02/19/2018 JESSICA Monreal [id number] Primary JESSICA Monreal FUHSDOB: [place] Insurance:[facility] [id number] [place] [facility] [address]Hsd: (330) Number: Repository [phone] () [id number] Date:5740-65-26SG [address] [address]VE: 02/19/2018 Secondary NOT GIVENUNK [place] Insurance:SELF PAY [facility] Number: Effective Repository Date:2018-02-19 02/19/2018 JESSICA Monreal [id number] Primary JESSICA Monreal FUHSDOB: [place] Insurance:[facility] [id number] [place] [facility] [address]Dac: (330) Number: Repository [phone] () [id number] Date:5721-26-08TN [address] [address]DI: 02/19/2018 Secondary NOT GIVENUNK Hair Insurance:SELF PAY [facility] Number: Effective Repository Date:2018-02-19 02/19/2018 JESSICA Monreal [id number] Primary JESSICA Monreal FUHSDOB: [place] Insurance:[facility] [id number] [place] [facility] [address]Fgh: (330) Number: Repository [phone] () [id number] Date:4087-88-42VP [address] [address]QO: 02/19/2018 Secondary NOT GIVENUNK [place] Insurance:SELF PAY [facility] Number: Effective Repository Date:2018-02-19 02/19/2018 JESSICA Monreal [id number] Primary JESSICA Monreal FUHSDOB: [place] Insurance:[facility] [id number] [place] [address]Tel: (330) Number: Repository [phone] () [id number] Date:2515-40-04SY [address] [address]ZO: 02/19/2018 Secondary NOT GIVENUNK Hair Insurance:SELF PAY [facility] Number: Effective Repository Date:2018-02-19 02/19/2018 JESSICA Monreal [id number] Primary JESSICA Monreal FUHSDOB: [place] Insurance:[facility] [id number] [facility] [place] [address]Tel: (330) Number: Repository [phone] () [id number] Date:1547-93-33VZ [address] [address]BR: 02/19/2018 Secondary NOT GIVENUNK Hair Insurance:SELF PAY [facility] Number: Effective Repository Date:2018-02-19 02/19/2018 JESSICA Monreal [id number] Primary JESSICA Monreal FURUSTYDOB: [place] [facility] [id number] [place] [address]Tel: (330) Number: Repository [phone] () [id number] Date:4127-46-06UR [address] [address]XQ: 02/19/2018 Secondary NOT GIVENUNK Hair Insurance:SELF PAY [facility] Number: Effective Repository Date:2018-02-19 02/19/2018 JESSICA Monreal [id number] Primary JESSICA Monreal FUHSDOB: [place] Insurance:[facility] [id number] [place] [facility] [address]Kys: (330) Number: Repository [phone] () [id number] Date:2262-06-57AZ [address] [address]JG: 02/19/2018 Secondary NOT GIVENUNK Hair Insurance:SELF PAY [facility] Number: Effective Repository Date:2018-02-19 02/19/2018 JESSICA Monreal [id number] Primary JESSICA Monreal FUHSDOB: [place] Insurance:[facility] [id number] [facility] [place] [address]Tel: (330) Number: Repository [phone] () [id number] Date:1916-62-65RI [address] [address]SD: 02/19/2018 Secondary NOT GIVENUNK Hair Insurance:SELF PAY [facility] Number: Effective Repository Date:2018-02-19 02/18/2018 JESSICA Monreal Primary JESSICA Monreal [place] [id number] [place] Insurance:[facility] [place]OB: [place] [facility] [id number] Hospital [address]Ryq: (330) Number: Repository [phone] () [id number] Date:8726-95-60KD [address] [address]PE: 02/18/2018 Secondary NOT GIVENUNK Hair Insurance:SELF PAY [facility] Number: Effective Repository Date:2018-02-18 11/19/2017 JESSICA Monreal Primary JESSICA Monreal [place] [id number] [place] Insurance:[facility] FUHSDOB: Community deysi [place] *[place] [facility] [id number] Hospital [address]Edg: (330) Number: Repository [phone] (HP) [id number] Date:9687-28-48YM[address] [address]RM: 11/19/2017 Secondary NOT GIVENALEJANDRO [place] Insurance:SELF PAY [facility] Number: Effective Repository Date:2017-11-19
== END ==
PROVIDERS: Family Provider Internal Medicine; PCP Internal Medicine; Referring Provider Physician Assistant; Visit Provider Physician Assistant
DX: S79.001A Unspecified physeal fracture of upper end of right femur, initial encounter for closed fracture (principal)
CPT/HCPCS: 73502

== ENCOUNTER → 2019-12-26 | Outpatient (CLI) | payer MEDICARE, MEDICAID, SELFPAY ==
[2019-05-28 13:05] VITALS: BMI 23.3
== END | disposition home or self-care (01) ==
PROVIDERS: Family Medicine; PCP Internal Medicine; Referring Provider Nurse Practitioner Adult Health; Visit Provider Nurse Practitioner Adult Health
DX: J98.8 Other specified respiratory disorders (principal)
CPT/HCPCS: 87635; U0004

== ENCOUNTER → 2021-01-28 | Outpatient (REF) | payer MEDICARE, MEDICAID, SELFPAY ==
[2020-05-07 11:47] VITALS: BMI 23.3
[2021-01-28 08:15] LABS: AST(SGOT) 32 U/L (15-37); Alanine Aminotransfer ALT/SGPT 41 U/L (13-56); Alkaline Phosphatase 77 U/L (45-117); Anion Gap 7 (5-15); BUN 24 mg/dL (7-18); BUN/Creat Ratio 39.5 RATIO (10-20); Calcium,Total 8.4 mg/dL (8.5-10.1); Chloride 106 mmol/L (98-107); Creatinine, Serum 0.61 mg/dL (0.55-1.02); EST Glomerular Filtration Rate 99 mL/min (>60); Est Glom Filt Rate - Afr Amer 120 mL/min (>60); Glucose 96 mg/dL (74-106); Potassium 3.7 mmol/L (3.5-5.1); Sodium Level 140 mmol/L (136-145)
[2021-01-28 09:29] LABS: Vitamin D,25 Hydroxy 50.8 ng/mL
== END | disposition home or self-care (01) ==
LOC: OLS.SW300 06:00
PROVIDERS: PCP Internal Medicine; Visit Provider Family Medicine
DX: D64.9 Anemia, unspecified (principal); M81.0 Age-related osteoporosis without current pathological fracture; R53.83 Other fatigue
CPT/HCPCS: 36415; 80053; 82306

== ENCOUNTER → 2021-03-07 04:00 | Outpatient (REF) | payer MEDICARE, MEDICAID, SELFPAY ==
[2020-05-07 11:47] VITALS: BMI 23.3
[2021-03-07 08:27] LABS: Absolute Lymphocyte Count 1.69 X10^3/uL (0.83-4.51); Absolute Neutrophil Count 3.1 X10^3/uL (2.0-7.7); Basophil# 0.03 X10^3/uL; Basophil% 0.6 % (0-1); Eosinophils% 1.8 % (0-5); Hematocrit 33.8 % (37-47); Lymphocyte # 1.69 X10^3/ul (0.83-4.51); Lymphocyte % 31.1 % (19-41); Mean Corp Hgb Conc 32.5 g/dL (32-36); Mean Corpuscular Hgb 30.6 pg (27.0-32.0); Mean Corpuscular Volume 94.2 fL (81-99); Mean Platelet Vol. 11.6 fl (6.2-12.0); Monocyte# 0.53 X10^3/uL; Monocyte% 9.7 % (0-10); NRBC Flagged by Analyzer 0 % (0-5); Neutrophil # 3.08 X10^3/uL (2.7-7.7); Neutrophil % 56.6 % (47-70); Platelet Count 243 K/mm3 (150-450); RBC Distribution Width CV 13.4 % (11.6-14.6); Red Blood Count 3.59 M/mm3 (4.2-5.4); White Blood Count 5.4 K/mm3 (4.4-11.0)
[2021-03-07 08:42] LABS: Anion Gap 5 (5-15); BUN 16 mg/dL (7-18); BUN/Creat Ratio 27.9 RATIO (10-20); Calcium,Total 8.3 mg/dL (8.5-10.1); Chloride 105 mmol/L (98-107); Creatinine, Serum 0.57 mg/dL (0.55-1.02); EST Glomerular Filtration Rate 106 mL/min (>60); Est Glom Filt Rate - Afr Amer 128 mL/min (>60); Glucose 94 mg/dL (74-106); Potassium 3.7 mmol/L (3.5-5.1); Sodium Level 137 mmol/L (136-145)
== END ==
LOC: OLS.SW300 04:00
PROVIDERS: PCP Internal Medicine; Referring Provider Family Medicine; Visit Provider Family Medicine
DX: I10 Essential (primary) hypertension (principal); R53.83 Other fatigue
CPT/HCPCS: 36415; 80048; 85025

== ENCOUNTER → 2021-04-29 05:00 | Outpatient (REF) | payer MEDICARE, MEDICAID, SELFPAY ==
[2021-04-29 08:30] LABS: ALB/GLOB Ratio 0.8 RATIO (0.9-2.4); AST(SGOT) 28 U/L (15-37); Alanine Aminotransfer ALT/SGPT 51 U/L (13-56); Albumin, Serum 2.8 g/dL (3.2-5.0); Alkaline Phosphatase 86 U/L (45-117); Anion Gap 5 (5-15); BUN 19 mg/dL (7-18); BUN/Creat Ratio 27.7 RATIO (10-20); Calcium,Total 8.3 mg/dL (8.5-10.1); Chloride 104 mmol/L (98-107); Creatinine, Serum 0.69 mg/dL (0.55-1.02); EST Glomerular Filtration Rate 86 mL/min (>60); Est Glom Filt Rate - Afr Amer 104 mL/min (>60); Globulin 3.5 g/dL (2.2-4.2); Glucose 114 mg/dL (74-106); Potassium 4.1 mmol/L (3.5-5.1); Protein, Total 6.3 g/dL (6.4-8.2); Sodium Level 138 mmol/L (136-145)
[2021-04-29 08:31] LABS: Vitamin D,25 Hydroxy 50.3 ng/mL
== END ==
LOC: OLS.SW300 05:00
PROVIDERS: PCP Internal Medicine; Visit Provider Family Medicine
DX: R53.83 Other fatigue (principal); E55.9 Vitamin D deficiency, unspecified
CPT/HCPCS: 36415; 80053; 82306

== ENCOUNTER → 2021-06-06 05:00 | Outpatient (REF) | payer MEDICARE, MEDICAID, SELFPAY ==
[2021-06-06 08:44] LABS: Absolute Lymphocyte Count 1.55 X10^3/uL (0.83-4.51); Absolute Neutrophil Count 4.8 X10^3/uL (2.0-7.7); Basophil# 0.03 X10^3/uL; Basophil% 0.4 % (0-1); Eosinophil# 0.13 X10^3/uL; Eosinophils% 1.8 % (0-5); Hematocrit 38.5 % (37-47); Hemoglobin 12.1 g/dL (12.0-15.0); Lymphocyte # 1.55 X10^3/ul (0.83-4.51); Mean Corp Hgb Conc 31.4 g/dL (32-36); Mean Corpuscular Hgb 30.3 pg (27.0-32.0); Mean Corpuscular Volume 96.3 fL (81-99); Mean Platelet Vol. 11.5 fl (6.2-12.0); Monocyte# 0.54 X10^3/uL; Monocyte% 7.6 % (0-10); NRBC Flagged by Analyzer 0 % (0-5); Neutrophil # 4.79 X10^3/uL (2.7-7.7); Neutrophil % 67.9 % (47-70); Platelet Count 267 K/mm3 (150-450); RBC Distribution Width SD 46.3 fl (35.1-43.9); White Blood Count 7.1 K/mm3 (4.4-11.0)
[2021-06-06 08:58] LABS: Anion Gap 7 (5-15); BUN 18 mg/dL (7-18); BUN/Creat Ratio 26.1 RATIO (10-20); Calcium,Total 8.7 mg/dL (8.5-10.1); Chloride 103 mmol/L (98-107); Creatinine, Serum 0.69 mg/dL (0.55-1.02); EST Glomerular Filtration Rate 86 mL/min (>60); Est Glom Filt Rate - Afr Amer 104 mL/min (>60); Glucose 112 mg/dL (74-106); Potassium 3.8 mmol/L (3.5-5.1); Sodium Level 138 mmol/L (136-145)
== END ==
LOC: OLS.SW300 05:00
PROVIDERS: PCP Internal Medicine; Visit Provider Family Medicine
DX: R53.83 Other fatigue (principal); I10 Essential (primary) hypertension
CPT/HCPCS: 36415; 80048; 85025

== ENCOUNTER → 2021-07-29 05:00 | Outpatient (REF) | payer MEDICARE, MEDICAID, SELFPAY ==
[2021-07-29 07:09] LABS: ALB/GLOB Ratio 0.8 RATIO (0.9-2.4); AST(SGOT) 32 U/L (15-37); Alanine Aminotransfer ALT/SGPT 45 U/L (13-56); Albumin, Serum 2.9 g/dL (3.2-5.0); Alkaline Phosphatase 78 U/L (45-117); Anion Gap 8 (5-15); BUN 16 mg/dL (7-18); BUN/Creat Ratio 29.9 RATIO (10-20); Calcium,Total 8.6 mg/dL (8.5-10.1); Chloride 105 mmol/L (98-107); Creatinine, Serum 0.54 mg/dL (0.55-1.02); EST Glomerular Filtration Rate 115 mL/min (>60); Est Glom Filt Rate - Afr Amer 139 mL/min (>60); Globulin 3.5 g/dL (2.2-4.2); Glucose 113 mg/dL (74-106); Potassium 3.8 mmol/L (3.5-5.1); Protein, Total 6.4 g/dL (6.4-8.2); Sodium Level 138 mmol/L (136-145)
[2021-07-29 07:59] LABS: Vitamin D,25 Hydroxy 44.8 ng/mL
== END ==
LOC: OLS.SW300 05:00
PROVIDERS: PCP Internal Medicine; Visit Provider Family Medicine
DX: R53.83 Other fatigue (principal); E55.9 Vitamin D deficiency, unspecified
CPT/HCPCS: 36415; 80053; 82306

== ENCOUNTER → 2021-09-07 | Outpatient (REF) | payer MEDICARE, MEDICAID, SELFPAY ==
[2021-09-07 08:22] LABS: Vitamin D,25 Hydroxy 51.3 ng/mL
[2021-09-07 08:25] LABS: ALB/GLOB Ratio 0.9 RATIO (0.9-2.4); AST(SGOT) 31 U/L (15-37); Alanine Aminotransfer ALT/SGPT 50 U/L (13-56); Albumin, Serum 2.9 g/dL (3.2-5.0); Alkaline Phosphatase 82 U/L (45-117); Anion Gap 6 (5-15); BUN 18 mg/dL (7-18); BUN/Creat Ratio 28.8 RATIO (10-20); Calcium,Total 8.4 mg/dL (8.5-10.1); Chloride 107 mmol/L (98-107); Cholesterol 112 mg/dL (200); Creatinine, Serum 0.62 mg/dL (0.55-1.02); EST Glomerular Filtration Rate 96 mL/min (>60); Est Glom Filt Rate - Afr Amer 116 mL/min (>60); Globulin 3.3 g/dL (2.2-4.2); Glucose 112 mg/dL (74-106); High Density Lipoprotein 28 mg/dL; Potassium 3.8 mmol/L (3.5-5.1); Protein, Total 6.2 g/dL (6.4-8.2); Sodium Level 139 mmol/L (136-145); Triglycerides 92 mg/dL; Very Low Density Lipoprotein 18 mg/dL (5-40)
== END | disposition home or self-care (01) ==
LOC: OLS.SW300 04:00
PROVIDERS: PCP Internal Medicine; Referring Provider Family Medicine; Visit Provider Family Medicine
DX: R53.83 Other fatigue (principal); E78.5 Hyperlipidemia, unspecified; E55.9 Vitamin D deficiency, unspecified
CPT/HCPCS: 36415; 80053; 80061; 82306

== ENCOUNTER → 2021-12-07 | Outpatient (REF) | payer MEDICARE, MEDICAID, SELFPAY ==
[2021-12-07 07:27] LABS: ALB/GLOB Ratio 0.9 RATIO (0.9-2.4); AST(SGOT) 37 U/L (15-37); Alanine Aminotransfer ALT/SGPT 43 U/L (13-56); Alkaline Phosphatase 82 U/L (45-117); Anion Gap 6 (5-15); BUN 14 mg/dL (7-18); BUN/Creat Ratio 21.7 RATIO (10-20); Calcium,Total 8.5 mg/dL (8.5-10.1); Chloride 105 mmol/L (98-107); Creatinine, Serum 0.64 mg/dL (0.55-1.02); EST Glomerular Filtration Rate 92 mL/min (>60); Est Glom Filt Rate - Afr Amer 112 mL/min (>60); Globulin 3.3 g/dL (2.2-4.2); Glucose 114 mg/dL (74-106); Protein, Total 6.3 g/dL (6.4-8.2); Sodium Level 139 mmol/L (136-145)
[2021-12-07 07:51] LABS: Vitamin D,25 Hydroxy 42.6 ng/mL
== END | disposition home or self-care (01) ==
LOC: OLS.SW300 04:00
PROVIDERS: PCP Internal Medicine; Referring Provider Family Medicine; Visit Provider Family Medicine
DX: E55.9 Vitamin D deficiency, unspecified (principal); R53.83 Other fatigue
CPT/HCPCS: 36415; 80053; 82306

== ENCOUNTER → 2022-03-08 | Outpatient (REF) | payer MEDICARE, MEDICAID, SELFPAY ==
[2022-03-08 09:02] LABS: ALB/GLOB Ratio 0.9 RATIO (0.9-2.4); AST(SGOT) 45 U/L (15-37); Alanine Aminotransfer ALT/SGPT 48 U/L (13-56); Albumin, Serum 3.4 g/dL (3.2-5.0); Alkaline Phosphatase 88 U/L (45-117); Anion Gap 6 (5-15); BUN 16 mg/dL (7-18); BUN/Creat Ratio 21.6 RATIO (10-20); Calcium,Total 9.1 mg/dL (8.5-10.1); Chloride 106 mmol/L (98-107); Creatinine, Serum 0.74 mg/dL (0.55-1.02); EST Glomerular Filtration Rate 79 mL/min (>60); Est Glom Filt Rate - Afr Amer 95 mL/min (>60); Globulin 3.6 g/dL (2.2-4.2); Glucose 114 mg/dL (74-106); Potassium 4.1 mmol/L (3.5-5.1); Sodium Level 137 mmol/L (136-145)
[2022-03-08 09:05] LABS: Vitamin D,25 Hydroxy 39.8 ng/mL
== END | disposition home or self-care (01) ==
LOC: OLS.SW300 04:00
PROVIDERS: Referring Provider Family Medicine; Visit Provider Family Medicine
DX: R53.83 Other fatigue (principal); E55.9 Vitamin D deficiency, unspecified
CPT/HCPCS: 36415; 80053; 82306

== ENCOUNTER → 2022-06-07 | Outpatient (REF) | payer MEDICARE, MEDICAID, SELFPAY ==
[2022-06-07 07:43] LABS: ALB/GLOB Ratio 0.9 RATIO (0.9-2.4); AST(SGOT) 35 U/L (15-37); Alanine Aminotransfer ALT/SGPT 38 U/L (13-56); Albumin, Serum 3.1 g/dL (3.2-5.0); Alkaline Phosphatase 79 U/L (45-117); Anion Gap 5 (5-15); BUN 24 mg/dL (7-18); BUN/Creat Ratio 31.7 RATIO (10-20); Bilirubin, Direct 0.08 mg/dL (0.00-0.30); Calcium,Total 8.7 mg/dL (8.5-10.1); Chloride 109 mmol/L (98-107); Creatinine, Serum 0.76 mg/dL (0.55-1.02); EST Glomerular Filtration Rate 77 mL/min (>60); Est Glom Filt Rate - Afr Amer 93 mL/min (>60); Globulin 3.3 g/dL (2.2-4.2); Glucose 107 mg/dL (74-106); Potassium 3.8 mmol/L (3.5-5.1); Protein, Total 6.4 g/dL (6.4-8.2); Sodium Level 140 mmol/L (136-145)
[2022-06-07 08:14] LABS: Vitamin D,25 Hydroxy 41.9 ng/mL
== END ==
LOC: OLS.SW 05:00
PROVIDERS: PCP Internal Medicine; Visit Provider Family Medicine
DX: E55.9 Vitamin D deficiency, unspecified (principal); R53.83 Other fatigue
CPT/HCPCS: 36415; 80053; 82248; 82306

== ENCOUNTER → 2022-07-28 | Outpatient (CLI) | payer MEDICARE, MEDICAID, SELFPAY ==
--- NOTE | 2022-07-28 14:43 | CT_ITS ---
STUDY: CT SCAN RIGHT REASON FOR EXAM: Female, 87 years old. R/O ABSCESS RADIATION DOSAGE (If Supplied By Facility): CTDIvol = ( 12.70 ) mGy, DLP = ( 645.93 ) mGycm. Individualized dose optimization techniques were used for this CT.? TECHNIQUE: Multiple axial tomographic images of the right hip were obtained following IV contrast administration. Coronal and sagittal reconstruction was obtained as well. COMPARISON: None. FINDINGS: The patient is status post right total hip replacement. There is good alignment. Minimal increased markings are seen overlying the subcutaneous fat. No focal abscess or fluid collection is seen. CT/Extremity Lower WITH Contrast IMPRESSION: Status post right total hip replacement. There is good alignment. No abscess collection or fluid collection is seen. Electronically Signed: Nguyễn Paz MD at 15:21 EST ,
[2022-07-28 15:16] LABS: CREATININE FINGERSTICK < 0.9 mg/dL (0.55-1.02); EGFR FINGERSTICK > 60.0000 mL/min (>60)
== END | disposition home or self-care (01) ==
LOC: CT 14:42
PROVIDERS: PCP Family Medicine; Referring Provider Family Medicine; Visit Provider Family Medicine
DX: Z96.641 Presence of right artificial hip joint (principal)
CPT/HCPCS: 73701; Q9967

== ENCOUNTER → 2022-09-04 | Outpatient (REF) | payer MEDICARE, MEDICAID, SELFPAY ==
[2022-09-04 08:56] LABS: Cholesterol 122 mg/dL (200); High Density Lipoprotein 30 mg/dL; Triglycerides 105 mg/dL; Very Low Density Lipoprotein 21 mg/dL (5-40)
== END ==
LOC: OLS.SW 05:00
PROVIDERS: PCP Family Medicine; Visit Provider Family Medicine
DX: E78.5 Hyperlipidemia, unspecified (principal)
CPT/HCPCS: 36415; 80061

== ENCOUNTER → 2022-09-06 | Outpatient (REF) | payer MEDICARE, MEDICAID, SELFPAY ==
[2022-09-06 08:55] LABS: Vitamin D,25 Hydroxy 50.2 ng/mL
[2022-09-06 09:10] LABS: AST(SGOT) 39 U/L (15-37); Alanine Aminotransfer ALT/SGPT 38 U/L (13-56); Albumin, Serum 3.4 g/dL (3.2-5.0); Alkaline Phosphatase 77 U/L (45-117); Anion Gap 7 (5-15); BUN 20 mg/dL (7-18); BUN/Creat Ratio 30.4 RATIO (10-20); Bilirubin, Direct 0.17 mg/dL (0.00-0.30); Calcium,Total 8.8 mg/dL (8.5-10.1); Chloride 109 mmol/L (98-107); Creatinine, Serum 0.66 mg/dL (0.55-1.02); EST Glomerular Filtration Rate 90 mL/min (>60); Est Glom Filt Rate - Afr Amer 109 mL/min (>60); Globulin 3.4 g/dL (2.2-4.2); Glucose 108 mg/dL (74-106); Potassium 3.6 mmol/L (3.5-5.1); Protein, Total 6.8 g/dL (6.4-8.2); Sodium Level 140 mmol/L (136-145)
== END ==
LOC: OLS.SW 05:00
PROVIDERS: PCP Family Medicine; Visit Provider Family Medicine
DX: E55.9 Vitamin D deficiency, unspecified (principal); R53.83 Other fatigue
CPT/HCPCS: 36415; 80053; 82248; 82306

== ENCOUNTER → 2022-12-06 | Outpatient (REF) | payer MEDICARE, MEDICAID, SELFPAY ==
[2022-12-06 08:19] LABS: ALB/GLOB Ratio 0.9 RATIO (0.9-2.4); AST(SGOT) 31 U/L (15-37); Alanine Aminotransfer ALT/SGPT 28 U/L (13-56); Alkaline Phosphatase 82 U/L (45-117); Anion Gap 2 (5-15); BUN 24 mg/dL (7-18); BUN/Creat Ratio 35.5 RATIO (10-20); Bilirubin, Direct 0.14 mg/dL (0.00-0.30); Calcium,Total 8.5 mg/dL (8.5-10.1); Chloride 109 mmol/L (98-107); Creatinine, Serum 0.68 mg/dL (0.55-1.02); EST Glomerular Filtration Rate 87 mL/min (>60); Est Glom Filt Rate - Afr Amer 106 mL/min (>60); Globulin 3.4 g/dL (2.2-4.2); Glucose 94 mg/dL (74-106); Potassium 3.6 mmol/L (3.5-5.1); Protein, Total 6.4 g/dL (6.4-8.2); Sodium Level 139 mmol/L (136-145)
[2022-12-06 08:21] LABS: Vitamin D,25 Hydroxy 59.2 ng/mL
== END ==
LOC: OLS.SW 05:00
PROVIDERS: PCP Family Medicine; Visit Provider Family Medicine
DX: R53.83 Other fatigue (principal); E55.9 Vitamin D deficiency, unspecified
CPT/HCPCS: 36415; 80053; 82248; 82306

== ENCOUNTER → 2023-01-19 | Outpatient (REF) | payer MEDICARE, MEDICAID, SELFPAY ==
[2023-01-19 08:22] LABS: Absolute Lymphocyte Count 1.62 X10^3/uL (0.83-4.51); Absolute Neutrophil Count 3.4 X10^3/uL (2.0-7.7); Basophil# 0.03 X10^3/uL; Basophil% 0.5 % (0-1); Eosinophil# 0.16 X10^3/uL; Eosinophils% 2.8 % (0-5); Hemoglobin 9.5 g/dL (12.0-15.0); Lymphocyte # 1.62 X10^3/ul (0.83-4.51); Lymphocyte % 28.6 % (19-41); Mean Corp Hgb Conc 30.6 g/dL (32-36); Mean Corpuscular Hgb 30.4 pg (27.0-32.0); Mean Corpuscular Volume 99.4 fL (81-99); Mean Platelet Vol. 11.7 fl (6.2-12.0); Monocyte# 0.46 X10^3/uL; Monocyte% 8.1 % (0-10); NRBC Flagged by Analyzer 0 % (0-5); Neutrophil # 3.38 X10^3/uL (2.7-7.7); Neutrophil % 59.8 % (47-70); Platelet Count 231 K/mm3 (150-450); RBC Distribution Width CV 13.2 % (11.6-14.6); RBC Distribution Width SD 47.8 fl (35.1-43.9); Red Blood Count 3.12 M/mm3 (4.2-5.4); White Blood Count 5.7 K/mm3 (4.4-11.0)
[2023-01-19 08:32] LABS: Anion Gap 5 (5-15); BUN 20 mg/dL (7-18); BUN/Creat Ratio 26.7 RATIO (10-20); Calcium,Total 8.3 mg/dL (8.5-10.1); Chloride 108 mmol/L (98-107); Creatinine, Serum 0.75 mg/dL (0.55-1.02); EST Glomerular Filtration Rate 78 mL/min (>60); Est Glom Filt Rate - Afr Amer 94 mL/min (>60); Glucose 93 mg/dL (74-106); Sodium Level 140 mmol/L (136-145)
== END ==
LOC: OLS.SW 05:00
PROVIDERS: PCP Family Medicine; Visit Provider Family Medicine
DX: R06.2 Wheezing (principal)
CPT/HCPCS: 36415; 80048; 85025

== ENCOUNTER → 2023-02-22 | Outpatient (REF) | payer MEDICARE, MEDICAID, SELFPAY ==
[2023-02-22 11:47] LABS: Albumin, Serum 3.4 g/dL (3.2-5.0); Prealbumin 19.3 mg/dL (20.0-40.0)
== END ==
LOC: OLS.SW 10:40
PROVIDERS: PCP Family Medicine; Referring Provider Family Medicine; Visit Provider Family Medicine
DX: R62.7 Adult failure to thrive (principal); Z79.899 Other long term (current) drug therapy
CPT/HCPCS: 36415; 82040; 84134

== ENCOUNTER → 2023-03-07 | Outpatient (REF) | payer MEDICARE, SELFPAY ==
--- OUTSIDE RECORDS SUMMARY | 2023-03-07 04:25 | XMS RPT_ITS | CCD ---
Author Name Unknown Address [address] [place] [address] Organization [facility] Care Team Providers Care Supervisor Water Softener Service Name Role Phone Carlin Hanna Unavailable Unavailable ALSHURBAJI, EHAB Unavailable Unavailable ALSHURBAJI, EHAB Unavailable Unavailable ITRAT, AHMED Unavailable Unavailable ALSHURBAJI, EHAB Unavailable Unavailable ALSHURBAJI, EHAB Unavailable Unavailable [facility] Unavailable Unavailable ITRAT, AHMED Unavailable Unavailable Carlin Hanna Unavailable Unavailable Allergies Allergy Classification Reported Allergen(s) Allergy Type Date of Onset Reaction(s) Facility (2 sources) meclizine; Translations: [MECLIZINE] Drug Allergy 2 [facility] Repository (2 sources) Seasonal allergy; Translations: [SEASONAL ALLERGIES] Propensity to adverse reactions (disorder) 4 [facility] Repository Medications Completed/Discontinued Medications Medication Drug Class(es) Dates Sig (Normalized) Sig (Original) alendronic acid 70 mg oral tablet (2 sources) Bisphosphonate Start: 06-05-2017 take 1 tablet by mouth every week FOSAMAX 70 MG TABS One tablet by mouth weekly ALENDRONATE SODIUM [id number] Yoav Harp NP aspirin 81 mg oral tablet (2 sources) Platelet Aggregation Inhibitor, Nonsteroidal Anti-inflammatory Drug Start: 11-30-2014 take 1 tablet by mouth once daily ASPIRIN 81 MG TABS One tablet by mouth daily ASPIRIN [id number] Chantal Hester RN atorvastatin 20 mg oral tablet (2 sources) HMG-CoA Reductase Inhibitor Start: 11-26-2014 take 1 tablet by mouth once daily ATORVASTATIN CALCIUM 20 MG TABS One tablet by mouth daily ATORVASTATIN CALCIUM [id number] Segundo Go RN calcium citrate 1040 mg oral tablet (2 sources) Start: 10-25-2015 take 1 tablet by mouth twice daily CALCIUM CITRATE 250 MG TABS One tablet by mouth twice daily CALCIUM CITRATE [id number] Miguel Canseco MD dexamethasone 1 mg/ml / neomycin 3.5 mg/ml / polymyxin b 39919 unt/ml ophthalmic suspension (2 sources) Aminoglycoside Antibacterial, Polymyxin-class Antibacterial, Corticosteroid Start: 11-27-2016 NEOMYCIN-POLYMYXIN- DEXAMETH 0.1 % SUSP as directed NEOMYCIN-POLYMYXIN- DEXAMETH [id number] Miguel Canseco MD ergocalciferol 71927 unt oral capsule (4 sources) Provitamin D2 Compound Start: 11-27-2016 take 1 tablet by mouth two times weekly VITAMIN D (ERGOCALCIFEROL) 40745 UNIT CAPS One tablet by mouth twice weekly ERGOCALCIFEROL [id number] Yoav Harp NP Problems Active Problems Problem Classification Problem Date Documented Da te Episodic/Chronic Acute cerebrovascular disease (2 sources) Nontraumatic subarachnoid hemorrhage, unspecified; Translations: [Nontraumatic subarachnoid hemorrhage, unspecified] Onset: 04-21-2018 Chronic Cardiac dysrhythmias (4 sources) Premature atrial contraction; Translations: [Paroxysmal atrial fibrillation] Onset: 11-30-2014 01-29-2015 Chronic Disorders of lipid metabolism (2 sources) Hyperlipidemia; Translations: [Hyperlipidemia, unspecified] Onset: 11-26-2014 11-26-2014 Chronic Essential hypertension (2 sources) Hypertensive disorder; Translations: [Essential (primary) hypertension] Onset: 11-30-2014 11-30-2014 Chronic Hypertension with complications and secondary hypertension (1 source) Secondary hypertension, unspecified; Translations: [Secondary hypertension, unspecified] Onset: 04-21-2018 Chronic Transient cerebral ischemia (2 sources) Transient cerebral ischemia; Translations: [Transient cerebral ischemic attack, unspecified] Onset: 11-30-2014 11-30-2014 Chronic Unclassified (4 sources) Long-term drug therapy; Translations: [Other fpc (current) drug therapy] Onset: 11-30-2014 10-26-2015 Unclassified (1 source) Unknown / UNK(Unknown) Onset: 04-23-2018 Past or Other Problems Problem Classification Problem Date Documented Da te Episodic/Chronic Syncope (2 sources) Near syncope; Translations: [Syncope and collapse] Onset: 11-26-2014 11-26-2014 Episodic Results Test Name Value Interpretation Reference Range Facil ity Vital Signs Date Time Vital Sign Value Performing Clinician Mireya floresmaggie 06-05-2017 08:08-0400 BMI (Body Mass Index) 19.14 kg/m2 [facility] Work Phone: 06-05-2017 08:08-0400 BP Diastolic 60 mm[Hg] [facility] Work Phone: 06-05-2017 08:08-0400 BP Systolic 100 mm[Hg] [facility] Work Phone: 06-05-2017 08:08-0400 Height 152.4 cm [facility] Work Phone: 06-05-2017 08:08-0400 Pulse (Heart Rate) 84 /min [facility] Work Phone: 06-05-2017 08:08-0400 Respiratory Rate 16 /min [facility] Work Phone: 06-05-2017 08:08-0400 Weight 44.45 kg [facility] Work Phone: 10-25-2015 10:27-0400 BSA (Body Surface Area) 1.36 m2 [facility] Work Phone: 12-03-2014 13:23-0400 Heart rate 71 /min [facility] Work Phone: Encounters Encounter Date Encounter Type Care Provider Facility Start: 04-21-2018 End: 04-23-2018 Evaluation and management of inpatient EH[facility] Procedures Date Procedure Procedure Detail Performing Clinician Start: 06-05-2017 End: 06-05-2017 Follow Up Appt 6 months Yoav Harp [employer]UTION SPECIALIST Work Phone: Start: 06-05-2017 End: 06-05-2017 PFM Yoav Harp DENIAL RESOLUTION SPECIALIST Work Phone: Start: 11-27-2016 End: 11-27-2016 Follow Up Appt 6 months Miguel Canseco MD Start: 11-27-2016 End: 11-27-2016 MMM Miguel Canseco MD Start: 10-25-2015 End: 10-25-2015 *Hepatic Function Panel Miguel Canseco MD Start: 10-25-2015 End: 11-27-2016 Follow Up Appt 1 year Miguel Read Start: 10-25-2015 End: 10-25-2015 Lipid 1996 panel - Serum or Plasma Miguel Canseco MD Start: 10-25-2015 End: 11-27-2016 PFM Miguel Canseco MD Start: 04-09-2015 End: 04-10-2015 Documentation of current medications Madelyn Torres PA-C Work Phone: Start: 04-09-2015 End: 04-09-2015 Follow Up Appt 6 months Madelyn li PA-C Work Phone: Start: 04-09-2015 End: 04-09-2015 PFM Madelyn Torres PA-C Work Phone: Start: 02-02-2015 End: 02-03-2015 Documentation of current medications Madelyn Torres PA-C Work Phone: Start: 02-02-2015 End: 02-02-2015 Follow Up Appt 2 months Madelyn li PA-C Work Phone: Start: 02-02-2015 End: 02-02-2015 MMM Madelyn Torres PA-C Work Phone: Start: 12-03-2014 End: 01-06-2015 24 hour holter monitor Miguel Canseco MD Start: 12-03-2014 End: 12-04-2014 Documentation of current medications Miguel Canseco MD Start: 12-03-2014 End: 12-03-2014 Ecg routine ecg w/least 12 lds w/i&r Miguel Canseco MD Start: 12-03-2014 End: 01-06-2015 Echocardiography Miguel Canseco MD Start: 12-03-2014 End: 12-03-2014 Follow Up Appt 6 weeks Miguel Canseco MD Start: 12-03-2014 End: 12-03-2014 MMM Miguel Canseco MD Plan of Treatment Date Care Activity Detail Author Start: 02-20-2018 End: 02-20-2018 Appointment Appointment [facility] Work Phone: Start: 06-05-2017 End: 06-05-2017 Follow Up Appt 6 months Follow Up Appt 6 months [facility] Work Phone: Start: 06-05-2017 End: 06-05-2017 PFM PFM [facility] Work Phone: Start: 11-27-2016 End: 11-27-2016 Follow Up Appt 6 months Follow Up Appt 6 months [facility] Work Phone: Start: 11-27-2016 End: 11-27-2016 MMM MMM [facility] Work Phone: Start: 04-26-2016 End: 10-27-2015 *Hepatic Function Panel *Hepatic Function Panel [facility] Work Phone: Start: 04-26-2016 End: 10-27-2015 Lipid panel [AGGREGATE] *Lipid Profile CC PCP [facility] Work Phone: Start: 10-25-2015 End: 10-25-2015 *Hepatic Function Panel *Hepatic Function Panel [facility] Work Phone: Start: 10-25-2015 End: 11-27-2016 Follow Up Appt 1 year Follow Up Appt 1 year [facility] Work Phone: Start: 10-25-2015 End: 10-25-2015 Lipid panel [AGGREGATE] *Lipid Profile CC PCP [facility] Work Phone: Start: 10-25-2015 End: 11-27-2016 PFM PFM [employer] Phone: Start: 04-09-2015 End: 04-09-2015 Follow Up Appt 6 months Follow Up Appt 6 months [employer] Work Phone: Start: 04-09-2015 End: 04-09-2015 PFM PFM [employer] Work Phone: Start: 02-02-2015 End: 02-02-2015 Follow Up Appt 2 months Follow Up Appt 2 months [employer] Phone: Start: 02-02-2015 End: 02-02-2015 MMM MMM [employer] Phone: Start: 12-03-2014 End: 12-03-2014 24 hour holter monitor 24 hour holter monitor [employer] Phone: Start: 12-03-2014 End: 12-03-2014 Ecg routine ecg w/least 12 lds w/i&r EKG (In office) [employer] Phone: Start: 12-03-2014 End: 12-03-2014 Echocardiography Echocardiogram (complete) [employer] Phone: Start: 12-03-2014 End: 12-03-2014 Follow Up Appt 6 weeks Follow Up Appt 6 weeks [employer] Phone: Start: 12-03-2014 End: 12-03-2014 MMM MMM [employer] Work Phone: Patient Education HYPERLIPIDEMIA [employer] Phone: Payers Date Payer Category Payer Policy ID Unknown [id number] Summary Purpose Family History No Family History Records FoundNo Family History Records Found Advance Directives No Advanced Directives Records FoundNo Advanced Directives Records Found Additional Source Comments INFORMATION SOURCE (unrecogn ized section and content) DATE CREATED AUTHOR AUTHOR'S CALI FAJARDO 05/11/2018 [facility] FOR RECORDS PERTAINING TO PATIENTS WHO ARE OR HAVE BEEN ENROLLED IN A CHEMICAL DEPENDENCY/SUBSTANCEABUSE PROGRAM, SOME INFORMATION MAY BE OMITTED. This clinical summary was aggregated from multiple sources. Caution should be exercised in using it in the provision of clinical care. This summary normalizes information from multiple sources, and as a consequence, information in this document may materially change the coding, format and clinical context of patient data. In addition, data may be omitted in some cases. CLINICAL DECISIONS SHOULD BE BASED ON THE PRIMARY CLINICAL RECORDS. [facility] [employer] [facility]. provides no warranty or guarantee of the accuracy or completeness of information in this document.
[2023-03-07 09:26] LABS: ALB/GLOB Ratio 0.9 RATIO (0.9-2.4); AST(SGOT) 29 U/L (15-37); Alanine Aminotransfer ALT/SGPT 28 U/L (13-56); Albumin, Serum 3.5 g/dL (3.2-5.0); Alkaline Phosphatase 90 U/L (45-117); Anion Gap 5 (5-15); BUN 16 mg/dL (7-18); BUN/Creat Ratio 23.3 RATIO (10-20); Calcium,Total 8.6 mg/dL (8.5-10.1); Chloride 107 mmol/L (98-107); Creatinine, Serum 0.69 mg/dL (0.55-1.02); EST Glomerular Filtration Rate 86 mL/min (>60); Est Glom Filt Rate - Afr Amer 104 mL/min (>60); Globulin 3.8 g/dL (2.2-4.2); Glucose 102 mg/dL (74-106); Potassium 4.3 mmol/L (3.5-5.1); Protein, Total 7.3 g/dL (6.4-8.2); Sodium Level 138 mmol/L (136-145)
[2023-03-07 09:39] LABS: Vitamin D,25 Hydroxy 48.1 ng/mL
== END ==
LOC: OLS.SW 05:00
PROVIDERS: PCP Family Medicine; Visit Provider Family Medicine
DX: R53.83 Other fatigue (principal); E55.9 Vitamin D deficiency, unspecified
CPT/HCPCS: 36415; 80053; 82306